=== PATIENT | female | born 1935 | race African-American/Black ===

== ENCOUNTER 2017-01-26 15:05 | Inpatient (IN) | payer MEDICARE, OTHER ==
[~2017-01-26] VITALS: Ht 165.1 cm; Wt 66.4 kg
[~2017-01-26 15:05] MED LIST: ATIVAN1 MG ORAL; CARAFATE1 G1 ORAL; CORDARONE200 M1 ORAL; COZAAR25 MG PO; DIGOX125 MCG PO; DOK100 M1 PO; FUROSEMIDE80 MG ORAL; GLUCOPHAGE500 MG PO; LASIX40 MG ORAL; METOPROLOL SUCC25 MG ORAL; METOPROLOL TART25 MG PO; NEXIUM40 MG PO; NORCO 5-325 TA1 EACH ORAL; SPIRONOLACTONE25 MG PO; SYNTHROID25 MCG PO; TOPROL XL50 MG ORAL; WARFARIN SODIUM1 MG PO; XARELTO10 MG ORAL; [UNRECOGNIZED DRUG - OTHER]
[2017-01-26 16:35] VITALS: BP 133/87
[2017-01-26] MEDS ORDERED: BACLOFEN10 MG ORAL (17:41)
[2017-01-26] MEDS ORDERED: MECLIZINE HCL25 MG PO (17:41)
[2017-01-26] MEDS ORDERED: LORAZEPAM1 MG PO (17:41)
[2017-01-26 20:00] VITALS: BP 132/79
[2017-01-26] MEDS: Sucralfate 1gm tab ORAL SCH (20:44)
[2017-01-26] MEDS: Metoprolol 50mg tab ORAL SCH (20:45)
[2017-01-26] MEDS: NovoLOG Insulin Flexpen SUBQ SCH (20:47)
[2017-01-26] MEDS ORDERED: Furosemide 40mg tab ORAL SCH (21:00)
[2017-01-26 21:21] LABS: BASOPHILS % (AUTO) 2.5 % (0.0-2.0); EOSINOPHILS % (AUTO) 0.9 % (0.0-3.0); LYMPHOCYTES % (AUTO) 17.9 % (20.0-45.0); MEAN CORPUSCULAR HEMOGLOBIN 28.4 PG (27.0-31.0); MEAN CORPUSCULAR HGB CONC 32.4 G/DL (32.0-36.0); MEAN CORPUSCULAR VOLUME 88 FL (80-99); MEAN PLATELET VOLUME 12.3 FL (6.5-10.1); MONOCYTES % (AUTO) 9.3 % (1.0-10.0); NEUTROPHILS % (AUTO) 69.3 % (45.0-75.0); PLATELET COUNT 105 K/UL (150-450); RED BLOOD COUNT 2.83 M/UL (4.20-5.40); WHITE BLOOD COUNT 9.3 K/UL (4.8-10.8)
[2017-01-26 21:32] LABS: ALANINE AMINOTRANSFERASE 8 U/L (3-33); ANION GAP 15 (5-15); ASPARTATE AMINO TRANSFERASE 15 U/L (5-40); CALCIUM 8.9 mg/dL (8.6-10.2); CARBON DIOXIDE 23 mEQ/L (20-30); CHLORIDE 100 mEQ/L (98-107); CREATININE 0.9 mg/dL (0.5-0.9); HEMOLYSIS 3; MAGNESIUM 2.1 mg/dL (1.7-2.5); POTASSIUM 4.2 mEQ/L (3.4-4.9); SODIUM 138 mEQ/L (135-145); TOTAL PROTEIN 7.6 g/dL (6.6-8.7); URIC ACID 4.7 mg/dL (3.0-7.5)
[2017-01-26 21:44] LABS: DIGOXIN 0.6 ng/mL (0.5-2.0)
[2017-01-27] VITALS: BP 155/110
[2017-01-27] MEDS: Nitroglycerin 2% oint pkt TOPIC SCH ×4 (00:05→17:28)
[2017-01-27] MEDS ORDERED: Digoxin 0.5mg/2ml Inj IVP ONE (02:00)
[2017-01-27] MEDS: Losartan 50mg tab ORAL SCH ×3 (02:11→20:39)
--- NOTE | 2017-01-27 02:25 | History and Physical Report ---
DATE OF ADMISSION: 01/26/2017 REASON FOR CONSULT: Congestive heart failure and rapid atrial fibrillation. HISTORY OF PRESENT ILLNESS: This is an 81-year-old female with a known history of chronic systolic congestive heart failure and dilated cardiomyopathy. She has a biventricular cardiac defibrillator. She has a history of both atrial and ventricular arrhythmias as well as sudden cardiac . She failed cardioversion efforts over the past year and has remained in atrial fibrillation. She also has not tolerated amiodarone in the past due to side effects and has refused to continue that drug. The patient has had worsening shortness of breath over the past several days. She was seen by me at the office and had increasing diuretic dose initiated but failed to improve prompting this hospitalization. She has not been able to ambulate more than a few feet or lie flat for the past two days due to these symptoms. PAST MEDICAL HISTORY: Cardiac defibrillator, systolic congestive heart failure, hypertensive heart disease, paroxysmal atrial fibrillation, history of ventricular tachycardia and sudden cardiac , type 2 diabetes mellitus, history of gastric carcinoma status post gastrectomy, iron deficiency anemia, osteoarthritis, and degenerative disk disease. MEDICATIONS: Prior to admission, reviewed and reconciled. ALLERGIES: Codeine. SOCIAL HISTORY: Nonsmoker. No alcohol or substance abuse. FAMILY HISTORY: Noncontributory. REVIEW OF SYSTEMS: No fevers or chills. No loss of vision or hearing. No shocks from her defibrillator. It was interrogated in the last three months. She has had cardioversion as noted most recently two to three months ago. She has not agreed to try amiodarone again. There is no history of asthma or blood clots in the legs. She has a partial gastrectomy several years ago for gastric cancer and has not had any signs of recurrence since. She does have chronic kidney disease due to her diabetic nephropathy. Her diabetes is managed with oral therapy. There is no history of thyroid disorder or dyslipidemia. She has been on cardioembolic prophylaxis with rivaroxaban. PHYSICAL EXAMINATION: GENERAL: She is in moderate respiratory distress and unable to lie flat. No chest pain noted. VITAL SIGNS: Blood pressure 133/87, pulse 97, respiratory rate 18, and afebrile. NECK: Jugular venous pressure is greater than 10. HEENT: Conjunctivae are pink. Sclerae are anicteric. LUNGS: With bilateral rales. BREASTS: Without discrete masses. ABDOMEN: Soft and nontender. CARDIAC: Irregularly irregular. Normal S1 and S2. A 1/6 systolic murmur at apex. ABDOMEN: Soft and nontender. EXTREMITIES: A 2+ bilateral pitting edema. NEUROLOGIC: Nonfocal. LABORATORY AND DIAGNOSTIC DATA: EKG atrial fibrillation with rapid ventricular response. Pro-natriuretic peptide is over 3000. White count 9.3, hemoglobin 8, and platelets 105,000. Potassium 4.2, BUN 15 and creatinine 0.9. TSH is 4.9. Digoxin level is 0.6. IMPRESSION: 1. Acute on chronic systolic congestive heart failure. 2. Cardiogenic insufficiency. 3. Paroxysmal atrial fibrillation with rapid ventricular response. 4. History of ventricular tachycardia. 5. Cardiac defibrillator. 6. History of gastric cancer. 7. Anemia and thrombocytopenia. 8. Rule out gastrointestinal blood loss. PLAN: 1. Intravenous diuresis. 2. Hold anticoagulation. 3. Check stool occult blood test. 4. May need to transfuse if hemoglobin falls further. 5. Topical nitrates. 6. Afterload reduction with losartan. 7. Replace electrolytes as needed. 8. Continue Carafate and add proton pump inhibitor. 9. Condition remains serious with guarded prognosis due to the severity of her left ventricular systolic dysfunction. Miguel Mason M.D. DR: HENRIETTA JOB#: [id number] CC:
[2017-01-27 04:00] VITALS: BP 143/86
[2017-01-27] MEDS ORDERED: NovoLOG Insulin Flexpen SUBQ SCH (06:30)
[2017-01-27] MEDS: NovoLOG Insulin Flexpen SUBQ SCH ×4 (06:37→20:42)
[2017-01-27 07:06] LABS: EOSINOPHILS % (AUTO) 0.1 % (0.0-3.0); LYMPHOCYTES % (AUTO) 12.7 % (20.0-45.0); MEAN CORPUSCULAR HGB CONC 29.4 G/DL (32.0-36.0); MEAN CORPUSCULAR VOLUME 85 FL (80-99); MEAN PLATELET VOLUME 13.6 FL (6.5-10.1); MONOCYTES % (AUTO) 7.7 % (1.0-10.0); NEUTROPHILS % (AUTO) 76.5 % (45.0-75.0); PLATELET COUNT 135 K/UL (150-450); RED BLOOD COUNT 3.26 M/UL (4.20-5.40); RED CELL DISTRIBUTION WIDTH 14.8 % (11.6-14.8)
[2017-01-27 07:44] VITALS: BP 137/82
[2017-01-27] MEDS: Spironolactone 25mg tab ORAL SCH (08:49)
[2017-01-27] MEDS: Metoprolol 50mg tab ORAL SCH ×2 (08:50→20:39)
[2017-01-27 11:23] VITALS: BP 128/80
[2017-01-27] MEDS: Sucralfate 1gm tab ORAL SCH ×2 (11:54→17:25)
[2017-01-27 15:17] VITALS: BP 123/56
[2017-01-27] MEDS ORDERED: Xarelto 15mg tab ORAL SCH (18:30)
[2017-01-27 20:00] VITALS: BP 124/85
[2017-01-28] VITALS: BP 139/72
[2017-01-28] MEDS: Nitroglycerin 2% oint pkt TOPIC SCH ×4 (00:09→18:00)
--- NOTE | 2017-01-28 02:58 | Progress Note ---
DATE: 01/27/2017 SUBJECTIVE: The patient's condition remains serious with guarded prognosis, significant shortness of breath. She is unable to lie flat. She has been diuresing well with IV furosemide. Blood pressure control has improved. She remains in atrial fibrillation with better rate control. Last evening, she was treated with IV digitalis and IV diuretics. The patient was noted to have a low hemoglobin level and a positive stool occult blood test. Rivaroxaban has been discontinued. PHYSICAL EXAMINATION: VITAL SIGNS: Blood pressure 123/56, pulse 89, respiratory rate 20, and afebrile. NECK: Supple. Jugular venous pressure greater than 10. LUNGS: With bilateral rales. CARDIAC: Irregularly irregular rhythm. Normal S1. Paradoxically split S2. A 1/6 systolic murmur at apex. ABDOMEN: Soft. EXTREMITIES: With 2+ bilateral pitting edema. LABORATORY DATA: Hemoglobin is 8.1. IMPRESSION: 1. Acute on chronic systolic congestive heart failure. 2. Cardiogenic insufficiency. 3. Anemia. 4. Hemoccult-positive stools. 5. History of gastric cancer. 6. Cardiac defibrillator. 7. Atrial fibrillation with rapid ventricular response, now rate controlled. 8. Hypertensive heart disease. PLAN: 1. Continue to hold anticoagulation. Continue diuresis. Maximize anti-failure regimens. 2. Transfuse for hemoglobin less than 8 g. Check iron panel. 3. Replace electrolytes as needed. 4. Follow up thyroid function. Continue digitalis and beta-blockade. The patient refuses amiodarone for cardioversion attempts. Miguel Mason M.D. DR: KLAUDIA JOB#: [id number] CC:
[2017-01-28 04:00] VITALS: BP 148/74
[2017-01-28] MEDS: NovoLOG Insulin Flexpen SUBQ SCH ×4 (06:34→21:44)
[2017-01-28 07:35] LABS: BASOPHILS % (AUTO) 1.1 % (0.0-2.0); EOSINOPHILS % (AUTO) 1.9 % (0.0-3.0); LYMPHOCYTES % (AUTO) 20.4 % (20.0-45.0); MEAN CORPUSCULAR HEMOGLOBIN 25.9 PG (27.0-31.0); MEAN CORPUSCULAR HGB CONC 30.6 G/DL (32.0-36.0); MEAN CORPUSCULAR VOLUME 85 FL (80-99); MEAN PLATELET VOLUME 13.7 FL (6.5-10.1); MONOCYTES % (AUTO) 11.7 % (1.0-10.0); NEUTROPHILS % (AUTO) 64.9 % (45.0-75.0); PLATELET COUNT 112 K/UL (150-450); RED BLOOD COUNT 3.08 M/UL (4.20-5.40); RED CELL DISTRIBUTION WIDTH 14.9 % (11.6-14.8); WHITE BLOOD COUNT 9.9 K/UL (4.8-10.8)
[2017-01-28 07:51] LABS: ALANINE AMINOTRANSFERASE 14 U/L (3-33); ALBUMIN/GLOBULIN RATIO 0.9 (1.0-2.7); ANION GAP 13 (5-15); ASPARTATE AMINO TRANSFERASE 21 U/L (5-40); CALCIUM 9.2 mg/dL (8.6-10.2); CARBON DIOXIDE 30 mEQ/L (20-30); CHLORIDE 99 mEQ/L (98-107); CREATININE 1.1 mg/dL (0.5-0.9); MAGNESIUM 1.9 mg/dL (1.7-2.5); POTASSIUM 3.1 mEQ/L (3.4-4.9); SODIUM 142 mEQ/L (135-145); TOTAL PROTEIN 7.3 g/dL (6.6-8.7)
[2017-01-28 07:57] LABS: HEMOLYSIS 1; IRON 23 ug/dL (37-145); TOTAL IRON BINDING CAPACITY 383 ug/dL (250-400)
[2017-01-28 08:00] VITALS: BP 133/85
[2017-01-28 08:25] LABS: BILIRUBIN,DIRECT 0.3 mg/dL (0.1-0.3)
[2017-01-28] MEDS: Spironolactone 25mg tab ORAL SCH (09:30)
[2017-01-28] MEDS: Losartan 50mg tab ORAL SCH ×2 (09:30→21:47)
[2017-01-28] MEDS: Metoprolol 50mg tab ORAL SCH ×2 (09:30→21:47)
[2017-01-28] MEDS: Sucralfate 1gm tab ORAL SCH ×2 (11:30→16:48)
[2017-01-28 16:00] VITALS: BP 105/75
[2017-01-28 20:00] VITALS: BP 124/66
[2017-01-28] MEDS ORDERED: KCl 10% 40mEq/30ml liquid ORAL ONE (23:00)
--- NOTE | 2017-01-28 23:18 | Progress Note ---
DATE: 01/28/2017 INTERNAL MEDICINE PROGRESS NOTE: SUBJECTIVE: The patient is extremely weak and less short of breath. She has diuresed quite well. The patient complains of dizziness and lightheadedness upon standing and states that her blood pressure is "too low". OBJECTIVE: VITAL SIGNS: Blood pressure is 119/62, pulse rate 85, and respiratory rate 20. NECK: Supple. LUNGS: Bilateral rales. CARDIAC: Irregularly irregular rhythm. Normal S1 and S2. ABDOMEN: Soft. EXTREMITIES: With 2+ edema. LABORATORY DATA: Potassium is 3.1. IMPRESSION: 1. Cardiogenic shock, recovering. 2. Acute on chronic systolic congestive heart failure. 3. Atrial fibrillation, now rate controlled. 4. Hypokalemia. 5. Heme positive stools 6. Hx gastric cancer 7. Iron deficiency 8. Cardiomyopathy with cardiac defibrillator PLAN: 1. Continue cautious diuresis. 2. Replace potassium. 3. Check magnesium. 4. Discontinue nitrates. 5. IV iron 6. GI eval to follow; holding anticoagulation. 7. Further recommendations will follow. Miguel Mason M.D. DR: Luis JOB#: [id number] CC: SURAJ
[2017-01-29 00:26] VITALS: BP 120/78
[2017-01-29 04:20] VITALS: BP 118/75
[2017-01-29] MEDS: NovoLOG Insulin Flexpen SUBQ SCH ×4 (06:48→23:17)
[2017-01-29] MEDS: Iron Sucrose 100 MG in NS 55 ML IVPB SCH ×2 (07:30→23:12)
[2017-01-29 07:50] VITALS: BP 112/71
[2017-01-29 08:06] LABS: MEAN CORPUSCULAR HEMOGLOBIN 24.8 PG (27.0-31.0); MEAN CORPUSCULAR HGB CONC 29.2 G/DL (32.0-36.0); MEAN CORPUSCULAR VOLUME 85 FL (80-99); MEAN PLATELET VOLUME 13.2 FL (6.5-10.1); PLATELET COUNT 134 K/UL (150-450); RED CELL DISTRIBUTION WIDTH 14.7 % (11.6-14.8); WHITE BLOOD COUNT 10.1 K/UL (4.8-10.8)
[2017-01-29] MEDS: Losartan 50mg tab ORAL SCH ×2 (08:14→23:13)
[2017-01-29 08:18] LABS: ANION GAP 12 (5-15); CARBON DIOXIDE 29 mEQ/L (20-30); CHLORIDE 99 mEQ/L (98-107); HEMOLYSIS 2; MAGNESIUM 1.7 mg/dL (1.7-2.5); POTASSIUM 3.5 mEQ/L (3.4-4.9); SODIUM 140 mEQ/L (135-145)
[2017-01-29] MEDS: Spironolactone 25mg tab ORAL SCH (08:20)
[2017-01-29] MEDS: Metoprolol 50mg tab ORAL SCH ×2 (09:00→23:15)
[2017-01-29] MEDS ORDERED: KCl 10% 40mEq/30ml liquid ORAL SCH (09:00)
--- NOTE | 2017-01-29 09:45 | Cardiology Report ---
APPROVED REPORT EXAM: Two-dimensional and M-mode echocardiogram with Doppler and color Doppler. INDICATION Atrial Fibrillation M-Mode DIMENSIONS IVSd0.7 (0.7-1.1cm)Left Atrium (MM)5.3 (1.6-4.0cm) LVDd5.0 (3.5-5.6cm)Aortic Root2.6 (2.0-3.7cm) PWd0.7 (0.7-1.1cm)Aortic Cusp Exc.1.6 (1.5-2.0cm) LVDs4.8 (2.5-4.0cm) PWs0.8 cm Normal left ventricular chamber size. Global left ventricular hypokinesis. Basal and mid anterior septal dyskinesis. Left ventricular ejection fraction estimated to be 30-35 %. No evidence of left ventricular hypertrophy. No evidence of pericardial fat or effusion. Mild left atrial and right atrial enlargement by 2D. Moderate right atrial enlargement by 2D. Focal aortic valve sclerosis with adequate cusp excursion Thickened mitral valve leaflets with normal excursion. Mitral annulus and aortic root calcification. Pulmonic valve not well visualized. Normal tricuspid valve structure. IVC dilated at 2.5cm with no physiologic collapse. RA pressure of 20mmHg. Probable pacemaker wire present in the right side chambers. A color flow and spectral Doppler study was performed and revealed: No aortic regurgitation. Moderate mitral regurgitation. Normal left ventricular diastolic function. Moderate tricuspid regurgitation. Tricuspid systolic velocities suggests peak right ventricular systolic pressure of 50 mmHg Consistent with moderate pulmonary hypertension.
[2017-01-29 10:37] LABS: ANISOCYTOSIS 1+; BAND NEUTROPHILS % (MANUAL) 0 % (0-8); BASOPHILS % (MANUAL) 0 % (0-2); EOSINOPHILS % (MANUAL) 0 % (0-3); HYPOCHROMASIA 1+; LYMPHOCYTES % (MANUAL) 26 % (20-45); NEUTROPHILS % (MANUAL) 63 % (45-75); PLATELET ESTIMATE DECREASED; TOTAL CELLS COUNTED 100
[2017-01-29 11:13] VITALS: BP 120/67
[2017-01-29] MEDS: Sucralfate 1gm tab ORAL SCH ×2 (11:55→17:21)
[2017-01-29 15:15] VITALS: BP 109/56
[2017-01-29 20:00] VITALS: BP 127/84
[2017-01-30 00:07] VITALS: BP 120/74
--- NOTE | 2017-01-30 01:17 | Progress Note ---
DATE: 01/29/2017 CARDIOLOGY PROGRESS NOTE SUBJECTIVE: The patient feels lightheaded upon standing. Blood pressure has decreased. OBJECTIVE: VITAL SIGNS: Blood pressure 109/56, heart rate 79, and respiratory rate 18. Monitor atrial fibrillation. LUNGS: Diminished breath sounds. Few rales. HEART: Regular rhythm and rate. Normal S1, S2. A 1/6 systolic apical murmur. ABDOMEN: Soft. EXTREMITIES: She has 1+ dependent edema. LABORATORY DATA: White count 10 and hemoglobin 7.9. Potassium 3.5. BUN 20 and creatinine 1. Pro-natriuretic peptide 3500. IMPRESSION: 1. Acute on chronic systolic congestive heart failure, improved. 2. Hypokalemia, corrected. 3. Orthostatic hypotension following diuresis and due to medications. 4. Magnesium level decreasing, now 1.7. 5. Anemia worsening with iron deficiency. PLAN: 1. Iron replacement. 2. Packed red blood cell transfusion. 3. The patient wants to defer gastrointestinal workup. 4. History of gastric cancer discussed. 5. Hold anticoagulation. 6. Decrease diuretic regimen. 7. Hold parameters for antihypertensives. Miguel Mason M.D. DR: HINA JOB#: [id number] CC:
[2017-01-30 04:00] VITALS: BP 129/87
[2017-01-30] MEDS: NovoLOG Insulin Flexpen SUBQ SCH ×4 (06:13→21:50)
[2017-01-30 07:51] VITALS: BP 132/80
[2017-01-30 07:58] LABS: EOSINOPHILS % (AUTO) 1.6 % (0.0-3.0); LYMPHOCYTES % (AUTO) 14.4 % (20.0-45.0); MEAN CORPUSCULAR HEMOGLOBIN 26.3 PG (27.0-31.0); MEAN CORPUSCULAR HGB CONC 31.1 G/DL (32.0-36.0); MEAN CORPUSCULAR VOLUME 84 FL (80-99); MEAN PLATELET VOLUME 11.2 FL (6.5-10.1); MONOCYTES % (AUTO) 9.4 % (1.0-10.0); NEUTROPHILS % (AUTO) 72.7 % (45.0-75.0); PLATELET COUNT 132 K/UL (150-450); RED BLOOD COUNT 3.73 M/UL (4.20-5.40); WHITE BLOOD COUNT 11.5 K/UL (4.8-10.8)
[2017-01-30 08:29] LABS: ALANINE AMINOTRANSFERASE 15 U/L (3-33); ALBUMIN/GLOBULIN RATIO 0.9 (1.0-2.7); ANION GAP 16 (5-15); ASPARTATE AMINO TRANSFERASE 20 U/L (5-40); CALCIUM 9.1 mg/dL (8.6-10.2); CARBON DIOXIDE 25 mEQ/L (20-30); CHLORIDE 98 mEQ/L (98-107); HEMOLYSIS 3; POTASSIUM 3.7 mEQ/L (3.4-4.9); SODIUM 139 mEQ/L (135-145); TOTAL PROTEIN 7.9 g/dL (6.6-8.7)
[2017-01-30 09:11] LABS: BILIRUBIN,DIRECT 0.3 mg/dL (0.1-0.3)
[2017-01-30] MEDS: Losartan 50mg tab ORAL SCH ×2 (09:25→21:52)
[2017-01-30] MEDS: Spironolactone 25mg tab ORAL SCH (09:25)
[2017-01-30] MEDS: Metoprolol 50mg tab ORAL SCH ×2 (09:25→21:52)
[2017-01-30] MEDS ORDERED: Tubing IV Secondary IV ONE (10:13)
[2017-01-30] MEDS ORDERED: NS 275ml ONE (10:13)
[2017-01-30 11:20] VITALS: BP 124/94
[2017-01-30] MEDS: Sucralfate 1gm tab ORAL SCH ×2 (12:15→17:04)
[2017-01-30 15:23] VITALS: BP 132/66
[2017-01-30 20:00] VITALS: BP 115/75
[2017-01-30] MEDS: Iron Sucrose 100 MG in NS 55 ML IVPB SCH (21:53)
[2017-01-30] MEDS ORDERED: Miralax 17gm pkt ORAL PRN (22:30)
[2017-01-31] VITALS: BP 129/67
[2017-01-31 04:32] VITALS: BP 121/80
--- NOTE | 2017-01-31 04:48 | Progress Note ---
DATE: 01/30/2017 CARDIOLOGY PROGRESS NOTE SUBJECTIVE: The patient is less dizzy upon standing. She feels less shortness of breath and her leg swelling has nearly resolved. Monitor her atrial fibrillation. The patient received a unit of packed red blood cells yesterday. OBJECTIVE: VITAL SIGNS: Blood pressure 117/75, pulse 76, respiratory rate 20, and afebrile. NECK: Supple. Jugular venous pressure is slightly elevated. LUNGS: Clear breath sounds. CARDIAC: Irregularly irregular. Normal S1 and S2. A 1/6 systolic apical murmur. ABDOMEN: Soft. EXTREMITIES: With trace edema. LABORATORY DATA: White count 11.5 and hemoglobin 9.8. Potassium 3.7, BUN 20, creatinine 1, and pro-natriuretic peptide is 3250. IMPRESSION: 1. Anemia. 2. Hemoccult-positive stools. 3. History of gastric cancer. 4. Cardiogenic shock, recovered. 5. Absph-al-xrtpxna systolic congestive heart failure. 6. Paroxysmal atrial fibrillation. 7. Cardiac defibrillator. 8. Anemia of iron deficiency. PLAN: 1. Adjust diuretic dosing. 2. Continue anti-failure regimen. 3. The patient refuses amiodarone. 4. Recheck thyroid function in four weeks. 5. Continue iron therapy. 6. Transfuse if hemoglobin less than 8 g. 7. The patient will agree to endoscopy if hemoglobin drops further, otherwise she prefers to schedule it at a later date. At this time, however, she must remain off anticoagulation and is aware of the increased risk of cardioembolic complications as such. Miguel Mason M.D. DR: MANDO JOB#: [id number] CC:
[2017-01-31] MEDS ORDERED: HydrALAZINE 10mg Tab ORAL SCH (06:00)
[2017-01-31] MEDS: NovoLOG Insulin Flexpen SUBQ SCH ×4 (06:28→21:26)
[2017-01-31 08:08] LABS: BASOPHILS % (AUTO) 1.6 % (0.0-2.0); EOSINOPHILS % (AUTO) 2.3 % (0.0-3.0); LYMPHOCYTES % (AUTO) 16.6 % (20.0-45.0); MEAN CORPUSCULAR HEMOGLOBIN 25.1 PG (27.0-31.0); MEAN CORPUSCULAR HGB CONC 29.7 G/DL (32.0-36.0); MEAN CORPUSCULAR VOLUME 85 FL (80-99); MEAN PLATELET VOLUME 12.2 FL (6.5-10.1); MONOCYTES % (AUTO) 10.2 % (1.0-10.0); NEUTROPHILS % (AUTO) 69.3 % (45.0-75.0); PLATELET COUNT 150 K/UL (150-450); RED BLOOD COUNT 3.61 M/UL (4.20-5.40); RED CELL DISTRIBUTION WIDTH 14.8 % (11.6-14.8)
[2017-01-31 08:28] VITALS: BP 124/83
[2017-01-31 08:54] LABS: ANION GAP 17 (5-15); CALCIUM 9.3 mg/dL (8.6-10.2); CARBON DIOXIDE 24 mEQ/L (20-30); CHLORIDE 98 mEQ/L (98-107); CREATININE 1.1 mg/dL (0.5-0.9); HEMOLYSIS 3; POTASSIUM 3.9 mEQ/L (3.4-4.9); SODIUM 139 mEQ/L (135-145)
[2017-01-31] MEDS ORDERED: Allopurinol 100mg Tab ORAL SCH (09:00)
[2017-01-31] MEDS ORDERED: Docusate 250mg cap ORAL SCH (09:00)
[2017-01-31] MEDS ORDERED: PARoxetine 20mg tab ORAL SCH (09:00)
[2017-01-31] MEDS ORDERED: Renagel 400mg cap ORAL SCH (09:00)
[2017-01-31] MEDS ORDERED: Aspirin Baby 81mg ORAL SCH (09:00)
[2017-01-31] MEDS ORDERED: Lactulose 20gm/30ml UDC ORAL SCH (09:00)
[2017-01-31] MEDS: Spironolactone 25mg tab ORAL SCH (10:23)
[2017-01-31] MEDS: Metoprolol 50mg tab ORAL SCH ×2 (10:24→21:25)
[2017-01-31] MEDS: Losartan 50mg tab ORAL SCH ×2 (10:24→21:24)
[2017-01-31 11:21] VITALS: BP 125/93
[2017-01-31] MEDS: Sucralfate 1gm tab ORAL SCH ×2 (11:39→16:53)
[2017-01-31 11:46] LABS: OTHERS PATHOLOGIST COMMENT
[2017-01-31 16:01] VITALS: BP 114/69
--- NOTE | 2017-01-31 19:57 | General Progress Note ---
Assessment/Plan Problem List: (1) Anemia ICD Codes: D64.9 - Anemia, unspecified SNOMED: 252804096 (2) GI bleed ICD Codes: K92.2 - Gastrointestinal hemorrhage, unspecified SNOMED: 02011912 (3) Gastric cancer ICD Codes: C16.9 - Malignant neoplasm of stomach, unspecified SNOMED: 416684879 (4) Elevated troponin (5) Dyspepsia ICD Codes: K30 - Dyspepsia SNOMED: 259699372 (6) Chest pain ICD Codes: R07.9 - Chest pain, unspecified SNOMED: 46858858 (7) CHF exacerbation ICD Codes: I50.9 - CHF exacerbation SNOMED: 58554433 (8) ICD (implantable cardiac defibrillator) discharge ICD Codes: Z03.89 - ICD (implantable cardiac defibrillator) discharge SNOMED: 047835670 (9) Paroxysmal a-fib ICD Codes: I48.0 - Paroxysmal a-fib SNOMED: 536871157 (10) CHF exacerbation ICD Codes: I50.9 - Heart failure, unspecified SNOMED: 57579047 Status: stable, progressing Assessment/Plan monitor h/h off xarelto possible gi eval diuresis monitor labs 'tele Subjective ROS Limited/Unobtainable: No Constitutional: Reports: weakness HEENT: Reports: no symptoms Cardiovascular: Reports: no symptoms Respiratory: Reports: cough Gastrointestinal/Abdominal: Reports: abdominal pain Genitourinary: Reports: no symptoms Neurologic/Psychiatric: Reports: no symptoms Endocrine: Reports: no symptoms Hematologic/Lymphatic: Reports: anemia Allergies: Coded Allergies: CODEINE (Verified Allergy, Unknown, 09/25/10) All Systems: reviewed and negative except above Subjective mild abd pain. denies chest pain or sob. no fever or chills. no headaches. no palpitations Objective Last 24 Hour Vital Signs Date Time Temp Pulse Resp B/P Pulse Ox O2 Delivery O2 Flow Rate FiO2 01/31/17 16:01 97.3 72 20 114/69 98 Room Air 01/31/17 16:00 86 01/31/17 12:00 47 01/31/17 11:21 97.2 85 20 125/93 100 Nasal Cannula 2.0 01/31/17 10:24 124/83 01/31/17 10:24 88 124/83 01/31/17 08:28 97.2 88 18 124/83 96 Room Air 01/31/17 08:00 81 01/31/17 04:32 97.9 84 20 121/80 84 Room Air 01/31/17 04:00 80 01/31/17 00:00 76 01/31/17 00:00 97.7 70 20 129/67 96 Room Air 01/30/17 21:52 117/75 01/30/17 21:52 76 117/75 01/30/17 20:00 81 01/30/17 20:00 97.7 75 20 115/75 97 Room Air Intake and Output 01/30/17 01/31/17 19:00 07:00 Intake Total 540 ml Balance 540 ml Intake Oral 540 ml # Voids 3 2 # Bowel Movements 1 Laboratory Tests 01/31/17 06:55: White Blood Count 10.0, Red Blood Count 3.61L, Hemoglobin 9.1L, Hematocrit 30.5L , Mean Corpuscular Volume 85, Mean Corpuscular Hemoglobin 25.1L, Mean Corpuscular Hemoglobin Concent 29.7L, Red Cell Distribution Width 14.8, Platelet Count 150, Mean Platelet Volume 12.2H, Neutrophils (%) (Auto) 69.3, Lymphocytes (%) (Auto) 16.6L, Monocytes (%) (Auto) 10.2H, Eosinophils (%) (Auto ) 2.3, Basophils (%) (Auto) 1.6, Sodium Level 139, Potassium Level 3.9, Chloride Level 98, Carbon Dioxide Level 24, Anion Gap 17H, Blood Urea Nitrogen 25H, Creatinine 1.1H, Estimat Glomerular Filtration Rate , Glucose Level 139H, Calcium Level 9.3, Free Thyroxine 1.36 Height (Feet): 5 Height (Inches): 5.00 Weight (Pounds): 157 General Appearance: WD/WN, alert Neck: supple Cardiovascular: regular rhythm Respiratory/Chest: lungs clear Abdomen: normal bowel sounds, non tender, soft, no organomegaly Edema: no edema noted Arm (L), no edema noted Arm (R), no edema noted Leg (L), no edema noted Leg (R), no edema noted Pedal (L), no edema noted Pedal (R), no edema noted 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
[2017-01-31 20:00] VITALS: BP 134/78
[2017-01-31] MEDS ORDERED: clonazePAM 0.5mg tab ORAL SCH (21:00)
[2017-01-31] MEDS: Iron Sucrose 100 MG in NS 55 ML IVPB SCH (21:00)
[2017-01-31] MEDS ORDERED: TraZODone 100mg tab ORAL SCH (21:00)
[2017-01-31] MEDS: Furosemide 40mg tab ORAL SCH (21:24)
[2017-02-01] VITALS: BP 128/94
[2017-02-01 04:00] VITALS: BP 134/84
[2017-02-01] MEDS: NovoLOG Insulin Flexpen SUBQ SCH ×4 (06:38→21:18)
[2017-02-01 07:54] VITALS: BP 141/85
[2017-02-01] MEDS: Furosemide 40mg tab ORAL SCH ×2 (07:58→21:00)
[2017-02-01] MEDS: Spironolactone 25mg tab ORAL SCH (07:58)
[2017-02-01] MEDS: Metoprolol 50mg tab ORAL SCH ×2 (07:58→21:10)
[2017-02-01] MEDS: Losartan 50mg tab ORAL SCH ×2 (07:59→21:10)
--- NOTE | 2017-02-01 08:31 | General Progress Note ---
Assessment/Plan Problem List: (1) Anemia ICD Codes: D64.9 - Anemia, unspecified SNOMED: 894644766 (2) GI bleed ICD Codes: K92.2 - Gastrointestinal hemorrhage, unspecified SNOMED: 63489883 (3) Gastric cancer ICD Codes: C16.9 - Malignant neoplasm of stomach, unspecified SNOMED: 491279894 (4) Elevated troponin (5) Dyspepsia ICD Codes: K30 - Dyspepsia SNOMED: 661490361 (6) Chest pain ICD Codes: R07.9 - Chest pain, unspecified SNOMED: 55819574 (7) CHF exacerbation ICD Codes: I50.9 - CHF exacerbation SNOMED: 38557741 (8) ICD (implantable cardiac defibrillator) discharge ICD Codes: Z03.89 - ICD (implantable cardiac defibrillator) discharge SNOMED: 622764414 (9) Paroxysmal a-fib ICD Codes: I48.0 - Paroxysmal a-fib SNOMED: 826014448 (10) CHF exacerbation ICD Codes: I50.9 - Heart failure, unspecified SNOMED: 72271159 Status: stable Assessment/Plan monitor h/h monitor stool ob off xarelto possible gi eval diuresis monitor labs 'tele Subjective ROS Limited/Unobtainable: No Constitutional: Reports: malaise, weakness HEENT: Reports: no symptoms Cardiovascular: Reports: chest pain, palpitations Respiratory: Reports: no symptoms Gastrointestinal/Abdominal: Reports: no symptoms Genitourinary: Reports: no symptoms Neurologic/Psychiatric: Reports: no symptoms Endocrine: Reports: no symptoms Hematologic/Lymphatic: Reports: no symptoms Allergies: Coded Allergies: CODEINE (Verified Allergy, Unknown, 09/25/10) All Systems: reviewed and negative except above Subjective mild abd pain/lower chest pain or sob. no fever or chills. no headaches. no palpitations Objective Last 24 Hour Vital Signs Date Time Temp Pulse Resp B/P Pulse Ox O2 Delivery O2 Flow Rate FiO2 02/01/17 07:59 141/85 02/01/17 07:58 79 141/85 02/01/17 07:54 97.7 79 18 141/85 100 Room Air 02/01/17 04:00 97.9 80 20 134/84 97 Room Air 02/01/17 04:00 88 02/01/17 00:00 74 02/01/17 00:00 97.7 80 19 128/94 98 Room Air 01/31/17 21:25 81 134/78 01/31/17 21:24 134/78 01/31/17 20:00 97.2 81 20 134/78 97 Room Air 01/31/17 20:00 84 01/31/17 16:01 97.3 72 20 114/69 98 Room Air 01/31/17 16:00 86 01/31/17 12:00 47 01/31/17 11:21 97.2 85 20 125/93 100 Nasal Cannula 2.0 01/31/17 10:24 124/83 01/31/17 10:24 88 124/83 Intake and Output 01/31/17 02/01/17 19:00 07:00 Intake Total 360 ml 200 ml Balance 360 ml 200 ml Intake Oral 360 ml 200 ml # Voids 3 1 Laboratory Tests 02/01/17 07:13: White Blood Count [Pending], Red Blood Count [Pending], Hemoglobin [Pending], Hematocrit [Pending], Mean Corpuscular Volume [Pending], Mean Corpuscular Hemoglobin [Pending], Mean Corpuscular Hemoglobin Concent [Pending], Red Cell Distribution Width [Pending], Platelet Count [Pending], Mean Platelet Volume [ Pending], Neutrophils (%) (Auto) [Pending], Lymphocytes (%) (Auto) [Pending], Monocytes (%) (Auto) [Pending], Eosinophils (%) (Auto) [Pending], Basophils (%) (Auto) [Pending], Sodium Level [Pending], Potassium Level [Pending], Chloride Level [Pending], Carbon Dioxide Level [Pending], Blood Urea Nitrogen [Pending], Creatinine [Pending], Estimat Glomerular Filtration Rate [Pending], Glucose Level [Pending], Calcium Level [Pending] Height (Feet): 5 Height (Inches): 5.00 Weight (Pounds): 158 General Appearance: WD/WN, alert Neck: supple Cardiovascular: regular rhythm Respiratory/Chest: normal breath sounds Abdomen: normal bowel sounds, soft, no organomegaly, tender Edema: no edema noted Arm (L), no edema noted Arm (R), no edema noted Leg (L), no edema noted Leg (R), no edema noted Pedal (L), no edema noted Pedal (R), no edema noted 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
[2017-02-01 08:42] LABS: BASOPHILS % (AUTO) 1.3 % (0.0-2.0); LYMPHOCYTES % (AUTO) 18.6 % (20.0-45.0); MEAN CORPUSCULAR HEMOGLOBIN 25.5 PG (27.0-31.0); MEAN CORPUSCULAR HGB CONC 30.4 G/DL (32.0-36.0); MEAN CORPUSCULAR VOLUME 84 FL (80-99); MEAN PLATELET VOLUME 12.6 FL (6.5-10.1); MONOCYTES % (AUTO) 10.2 % (1.0-10.0); PLATELET COUNT 128 K/UL (150-450); RED BLOOD COUNT 3.46 M/UL (4.20-5.40); RED CELL DISTRIBUTION WIDTH 14.9 % (11.6-14.8)
[2017-02-01 08:59] LABS: ANION GAP 17 (5-15); CARBON DIOXIDE 23 mEQ/L (20-30); CHLORIDE 100 mEQ/L (98-107); CREATININE 1.2 mg/dL (0.5-0.9); HEMOLYSIS 0; POTASSIUM 3.8 mEQ/L (3.4-4.9); SODIUM 140 mEQ/L (135-145)
[2017-02-01] MEDS: Sucralfate 1gm tab ORAL SCH ×2 (10:28→17:21)
[2017-02-01 11:21] VITALS: BP 147/87
[2017-02-01 15:23] VITALS: BP 134/65
[2017-02-01 20:00] VITALS: BP 145/90
[2017-02-01] MEDS: Iron Sucrose 100 MG in NS 55 ML IVPB SCH (21:00)
[2017-02-02 00:08] VITALS: BP 136/85
[2017-02-02] MEDS ORDERED: LORazepam 0.5mg tab ORAL ONE (00:45)
[2017-02-02] MEDS ORDERED: Levofloxacin 500mg tab ORAL ONE (00:45)
[2017-02-02 04:04] VITALS: BP 130/79
--- NOTE | 2017-02-02 05:08 | Progress Note ---
DATE: 02/01/2017 CARDIOLOGY PROGRESS NOTE: SUBJECTIVE: The patient still has dysuria. She is also weak, but no chest pain or shortness of breath. OBJECTIVE: VITAL SIGNS: Blood pressure 145/90, pulse 80, and respiratory rate 16. NECK: Jugular venous pressure elevated. LUNGS: Clear breath sounds. CARDIAC: Irregularly irregular. Normal S1, S2. A 1/6 systolic apical murmur. ABDOMEN: Soft. EXTREMITIES: Trace edema. LABORATORY AND DIAGNOSTIC DATA: Urine culture is positive for Proteus and E. coli. Hemoglobin is up to 8.7. IMPRESSION: 1. Gastrointestinal bleed. 2. History of gastric cancer. 3. Acute on chronic systolic congestive heart failure. 4. Recovered cardiogenic shock . 5. Anemia of iron deficiency. 6. Poor peripheral access . 7. Polymicrobial urinary tract infection. 8. Hypertensive cardiomyopathy. 9. Cardiac defibrillator with history of sudden cardiac . PLAN: We will continue to monitor hemoglobin and transfuse if less than 8 g. Transition from IV to oral anti failure drugs. Iron replacement. Following a GI workup which will be called once antibiotics have been started for her urinary infection. Miguel Mason M.D. DR: Jennyfer JOB#: [id number] CC:
[2017-02-02 05:43] LABS: BASOPHILS % (AUTO) 1.4 % (0.0-2.0); EOSINOPHILS % (AUTO) 1.6 % (0.0-3.0); LYMPHOCYTES % (AUTO) 18.2 % (20.0-45.0); MEAN CORPUSCULAR HEMOGLOBIN 26.1 PG (27.0-31.0); MEAN CORPUSCULAR HGB CONC 31.2 G/DL (32.0-36.0); MEAN CORPUSCULAR VOLUME 84 FL (80-99); MONOCYTES % (AUTO) 10.6 % (1.0-10.0); NEUTROPHILS % (AUTO) 68.2 % (45.0-75.0); PLATELET COUNT 132 K/UL (150-450); RED BLOOD COUNT 3.55 M/UL (4.20-5.40); RED CELL DISTRIBUTION WIDTH 15.2 % (11.6-14.8); WHITE BLOOD COUNT 9.1 K/UL (4.8-10.8)
--- NOTE | 2017-02-02 06:29 | Progress Note ---
DATE: 01/31/2017 CARDIOLOGY PROGRESS NOTE Late entry for 01/31/2017 SUBJECTIVE: The patient has weakness. She noted she had a Alarcon catheter removed. She has some dysuria. OBJECTIVE: VITAL SIGNS: Afebrile, blood pressure 134/78, pulse 81, and respiratory rate 20. NECK: Supple. LUNGS: No wheezing or rales. CARDIAC: Regular rhythm rate. Normal S1, S2. A 1/6 systolic apical murmur. ABDOMEN: Soft. EXTREMITIES: Trace edema. LABORATORY DATA: Hemoglobin has decreased to 9.1. Chemistry panel notable for BUN 25, creatinine 1.1, potassium 3.9, and free TSH 1.3. Chest x-ray is normal. IMPRESSION: Vquum-[id number]-[id number] systolic congestive heart failure improved, chronic kidney disease, type 2 diabetes mellitus, history of gastric cancer, hemoccult-positive stool with anemia status post transfusion, and possible urinary tract infection. PLAN: 1. Rivaroxaban for cardioembolic prophylaxis is now on hold due to hemoccult positive stools. 2. Titrate beta-gem. 3. Continue diuresis. 4. Monitor hemoglobin. 5. We will likely need GI consult. Continue to hold anticoagulation transition from IV to oral diuretics. Titrate anti-failure regimen. Follow up urine studies. Miguel Mason M.D. DR: Juan A JOB#: [id number] CC:
[2017-02-02 06:38] LABS: ALANINE AMINOTRANSFERASE 17 U/L (3-33); ALBUMIN/GLOBULIN RATIO 0.9 (1.0-2.7); ANION GAP 19 (5-15); ASPARTATE AMINO TRANSFERASE 23 U/L (5-40); CALCIUM 8.9 mg/dL (8.6-10.2); CARBON DIOXIDE 24 mEQ/L (20-30); CHLORIDE 97 mEQ/L (98-107); CREATININE 1.4 mg/dL (0.5-0.9); HEMOLYSIS 0; POTASSIUM 3.5 mEQ/L (3.4-4.9); SODIUM 140 mEQ/L (135-145); TOTAL PROTEIN 7.5 g/dL (6.6-8.7)
[2017-02-02 06:51] LABS: BILIRUBIN,DIRECT 0.3 mg/dL (0.1-0.3)
[2017-02-02] MEDS: NovoLOG Insulin Flexpen SUBQ SCH ×4 (06:54→20:54)
[2017-02-02 08:00] VITALS: BP 126/81
[2017-02-02] MEDS: Furosemide 40mg tab ORAL SCH ×2 (08:54→20:49)
[2017-02-02] MEDS: Spironolactone 25mg tab ORAL SCH (08:54)
[2017-02-02] MEDS: Losartan 50mg tab ORAL SCH ×2 (08:54→20:51)
[2017-02-02] MEDS: Metoprolol 50mg tab ORAL SCH ×2 (08:54→20:49)
[2017-02-02] MEDS: Sucralfate 1gm tab ORAL SCH ×2 (11:58→16:28)
[2017-02-02 12:00] VITALS: BP 121/81
--- NOTE | 2017-02-02 12:48 | General Progress Note ---
Assessment/Plan Problem List: (1) Anemia ICD Codes: D64.9 - Anemia, unspecified SNOMED: 383371103 (2) GI bleed ICD Codes: K92.2 - Gastrointestinal hemorrhage, unspecified SNOMED: 13672990 (3) Gastric cancer ICD Codes: C16.9 - Malignant neoplasm of stomach, unspecified SNOMED: 412020307 (4) Elevated troponin (5) Dyspepsia ICD Codes: K30 - Dyspepsia SNOMED: 608094951 (6) Chest pain ICD Codes: R07.9 - Chest pain, unspecified SNOMED: 52253831 (7) CHF exacerbation ICD Codes: I50.9 - CHF exacerbation SNOMED: 59106493 (8) ICD (implantable cardiac defibrillator) discharge ICD Codes: Z03.89 - ICD (implantable cardiac defibrillator) discharge SNOMED: 800187463 (9) Paroxysmal a-fib ICD Codes: I48.0 - Paroxysmal a-fib SNOMED: 666673396 (10) CHF exacerbation ICD Codes: I50.9 - Heart failure, unspecified SNOMED: 05056359 Status: stable, progressing Assessment/Plan monitor h/h monitor stool ob off xarelto possible gi eval diuresis monitor labs dc planning if cleared by pt and cards 'tele Subjective ROS Limited/Unobtainable: No Constitutional: Reports: weakness HEENT: Reports: no symptoms Cardiovascular: Reports: chest pain Respiratory: Reports: shortness of breath Gastrointestinal/Abdominal: Reports: no symptoms Genitourinary: Reports: no symptoms Neurologic/Psychiatric: Reports: no symptoms Endocrine: Reports: no symptoms Hematologic/Lymphatic: Reports: anemia Allergies: Coded Allergies: CODEINE (Verified Allergy, Unknown, 09/25/10) All Systems: reviewed and negative except above Subjective mild abd pain/lower chest pain no sob. no fever or chills. no headaches. no palpitations feels "weak" when ambulating. mild sims. npa higher today. run/cr trending up Objective Last 24 Hour Vital Signs Date Time Temp Pulse Resp B/P Pulse Ox O2 Delivery O2 Flow Rate FiO2 02/02/17 08:54 126/81 02/02/17 08:54 76 126/81 02/02/17 08:00 76 02/02/17 08:00 97.5 76 18 126/81 96 Room Air 02/02/17 04:04 98.8 83 19 130/79 98 Room Air 02/02/17 04:00 78 02/02/17 00:08 98.3 64 18 136/85 98 Nasal Cannula 2.0 02/02/17 00:00 68 02/01/17 21:10 145/90 02/01/17 21:10 85 145/90 02/01/17 20:00 74 02/01/17 20:00 98.5 85 19 145/90 98 Room Air 02/01/17 16:00 72 02/01/17 15:23 97.7 80 18 134/65 100 Room Air Intake and Output 02/01/17 02/02/17 19:00 07:00 Intake Total 470 ml Balance 470 ml Intake Oral 470 ml # Voids 4 2 Laboratory Tests 02/02/17 04:15: White Blood Count 9.1, Red Blood Count 3.55L, Hemoglobin 9.3L, Hematocrit 29.6L , Mean Corpuscular Volume 84, Mean Corpuscular Hemoglobin 26.1L, Mean Corpuscular Hemoglobin Concent 31.2L, Red Cell Distribution Width 15.2H, Platelet Count 132L, Mean Platelet Volume 12.0H, Neutrophils (%) (Auto) 68.2, Lymphocytes (%) (Auto) 18.2L, Monocytes (%) (Auto) 10.6H, Eosinophils (%) (Auto ) 1.6, Basophils (%) (Auto) 1.4, Sodium Level 140, Potassium Level 3.5, Chloride Level 97L, Carbon Dioxide Level 24, Anion Gap 19H, Blood Urea Nitrogen 31H, Creatinine 1.4H, Estimat Glomerular Filtration Rate , Glucose Level 112H, Calcium Level 8.9, Total Bilirubin 1.5H, Direct Bilirubin 0.3, Aspartate Amino Transf (AST/SGOT) 23, Alanine Aminotransferase (ALT/SGPT) 17, Alkaline Phosphatase 76, Pro-B-Type Natriuretic Peptide 5745H, Total Protein 7.5, Albumin 3.7, Globulin 3.8, Albumin/Globulin Ratio 0.9L Height (Feet): 5 Height (Inches): 5.00 Weight (Pounds): 158 General Appearance: WD/WN, alert Neck: supple Cardiovascular: regular rhythm Respiratory/Chest: lungs clear Abdomen: normal bowel sounds, non tender, soft, no organomegaly Neurologic: alert, oriented x 3, responsive Skin: normal pigmentation UOMOTO,DANIELLE Feb 02, 2017 12:48
[2017-02-02 16:00] VITALS: BP 130/73
[2017-02-02 20:30] VITALS: BP 133/86
[2017-02-03] VITALS: BP 134/68
[2017-02-03 03:34] VITALS: BP 148/83
[2017-02-03] MEDS: NovoLOG Insulin Flexpen SUBQ SCH ×4 (06:32→21:42)
[2017-02-03 08:15] VITALS: BP 136/91
[2017-02-03] MEDS: Spironolactone 25mg tab ORAL SCH (08:18)
[2017-02-03] MEDS: Losartan 50mg tab ORAL SCH ×2 (08:18→21:28)
[2017-02-03] MEDS: Metoprolol 50mg tab ORAL SCH ×2 (08:19→21:30)
[2017-02-03] MEDS: Furosemide 40mg tab ORAL SCH ×2 (08:19→21:29)
--- NOTE | 2017-02-03 08:48 | General Progress Note ---
Assessment/Plan Problem List: (1) Anemia ICD Codes: D64.9 - Anemia, unspecified SNOMED: 165734158 (2) GI bleed ICD Codes: K92.2 - Gastrointestinal hemorrhage, unspecified SNOMED: 68815741 (3) Gastric cancer ICD Codes: C16.9 - Malignant neoplasm of stomach, unspecified SNOMED: 063220329 (4) Elevated troponin (5) Dyspepsia ICD Codes: K30 - Dyspepsia SNOMED: 330488329 (6) Chest pain ICD Codes: R07.9 - Chest pain, unspecified SNOMED: 50392954 (7) CHF exacerbation ICD Codes: I50.9 - CHF exacerbation SNOMED: 35196045 (8) ICD (implantable cardiac defibrillator) discharge ICD Codes: Z03.89 - ICD (implantable cardiac defibrillator) discharge SNOMED: 386324182 (9) Paroxysmal a-fib ICD Codes: I48.0 - Paroxysmal a-fib SNOMED: 820397994 (10) CHF exacerbation ICD Codes: I50.9 - Heart failure, unspecified SNOMED: 37975005 Status: stable Assessment/Plan dc planning outpt egd per pt hold xarelto due to heme positive stools Subjective ROS Limited/Unobtainable: No Constitutional: Reports: malaise, weakness HEENT: Reports: no symptoms Cardiovascular: Reports: no symptoms Respiratory: Reports: no symptoms Gastrointestinal/Abdominal: Reports: no symptoms Genitourinary: Reports: no symptoms Neurologic/Psychiatric: Reports: no symptoms Endocrine: Reports: no symptoms Hematologic/Lymphatic: Reports: no symptoms Allergies: Coded Allergies: CODEINE (Verified Allergy, Unknown, 09/25/10) All Systems: reviewed and negative except above Subjective c/o dizziness. refusing endoscopy. aware of conern regarding heme positive stool and prior history of gastric ca. still feels weak Objective Last 24 Hour Vital Signs Date Time Temp Pulse Resp B/P Pulse Ox O2 Delivery O2 Flow Rate FiO2 02/03/17 08:19 86 136/91 02/03/17 08:18 136/91 02/03/17 08:15 97.2 70 20 136/91 100 Nasal Cannula 2.0 02/03/17 04:00 82 02/03/17 03:34 97.9 83 18 148/83 100 Room Air 02/03/17 00:00 97.7 79 18 134/68 97 Room Air 02/03/17 00:00 81 02/02/17 20:51 146/77 02/02/17 20:49 75 146/77 02/02/17 20:30 98.5 77 19 133/86 94 Room Air 02/02/17 20:00 80 02/02/17 16:00 79 02/02/17 16:00 97.0 77 18 130/73 100 Room Air 02/02/17 12:00 97.0 83 19 121/81 100 Room Air 02/02/17 12:00 80 02/02/17 08:54 126/81 02/02/17 08:54 76 126/81 Intake and Output 02/02/17 02/03/17 19:00 07:00 Intake Total 240 ml 250 ml Balance 240 ml 250 ml Intake Oral 240 ml 250 ml # Voids 1 3 # Bowel Movements 1 Height (Feet): 5 Height (Inches): 5.00 Weight (Pounds): 152 Objective General Appearance: WD/WN, alert Neck: supple Cardiovascular: regular rhythm Respiratory/Chest: lungs clear Abdomen: normal bowel sounds, non tender, soft, no organomegaly Neurologic: alert, oriented x 3, responsive Skin: normal pigmentation DANIELLE SIMONS Feb 03, 2017 08:48
[2017-02-03 11:45] VITALS: BP 122/67
[2017-02-03] MEDS: Sucralfate 1gm tab ORAL SCH ×2 (11:49→16:28)
--- NOTE | 2017-02-03 12:56 | Diagnostic Imaging Report ---
Abdominal pain Technique: Continuous helical CT imaging of the abdomen and pelvis was performed with automatic exposure control following administration of oral contrast only, on a Siemens sensation [address] scanner. Axial images were reconstructed at 5 mm slice thickness and interval. Coronal images were reconstructed at 5 mm slice thickness. No IV contrast was administered per requesting physicians order, despite no contraindications listed in either submitted clinical data or tech note.. CTDI volume(s): 13 mGy Total DLP: 646 mGy-cm Findings: Comparison: Contrast-enhanced CT abdomen pelvis 06/11/2014 Lack of IV contrast limits evaluation. Oral contrast has passed throughout the gastrointestinal tract to the level of distal transverse colon. Entire tract remains nondilated. Surgical clips noted adjacent to stomach and left-sided small bowel. Mild mural thickening in region of small bowel anastomosis not excludable. Haziness surrounds rectum. No other obvious mural thickening, adjacent stranding, extraluminal gas or fluid collections. Prominent arterial mural calcifications. Vascular patency indeterminate. Metallic densities adjacent to small bowel in left lower quadrant in region of previous anastomosis. Absence of uterus, nonvisualization of ovaries again noted. Remainder visualized pelvic anatomy demonstrates no other obvious acute abnormality. Pleural-based subsegmental consolidation and volume loss have developed in the left lung base. A small. Heart size is increased, again contains pacemaker leads. Degenerative changes again noted in lumbar, lower thoracic spine. IMPRESSION: Perirectal haziness--consider proctitis Pathologic mural thickening of small bowel in region of previous anastomosis not excludable No other evidence of acute abdominopelvic disease, with limitation as described. Subtle but potentially significant abnormalities may be missed. Repeat CT scan with full oral and IV contrast preparation recommended for more complete evaluation, as clinically indicated Development of left lung base subsegmental atelectasis and adjacent pleural effusion Interval increase in heart size suggests progression of cardiomyopathy Other stable chronic changes as described
[2017-02-03 15:57] VITALS: BP 145/76
--- NOTE | 2017-02-03 19:19 | General Progress Note ---
Assessment/Plan Assessment/Plan GI CONSULT Full note to follow Will schedule for EGD/Colon Th Thank you Mauro Stephenson MD Subjective Allergies: Coded Allergies: CODEINE (Verified Allergy, Unknown, 09/25/10) Objective Last 24 Hour Vital Signs Date Time Temp Pulse Resp B/P Pulse Ox O2 Delivery O2 Flow Rate FiO2 02/03/17 15:57 97.0 71 18 145/76 99 Nasal Cannula 2.0 02/03/17 11:45 97.0 72 18 122/67 100 Nasal Cannula 2.0 02/03/17 08:19 86 136/91 02/03/17 08:18 136/91 02/03/17 08:15 97.2 70 20 136/91 100 Nasal Cannula 2.0 02/03/17 07:34 70 02/03/17 04:00 82 02/03/17 03:34 97.9 83 18 148/83 100 Room Air 02/03/17 00:00 97.7 79 18 134/68 97 Room Air 02/03/17 00:00 81 02/02/17 20:51 146/77 02/02/17 20:49 75 146/77 02/02/17 20:30 98.5 77 19 133/86 94 Room Air 02/02/17 20:00 80 Intake and Output 02/02/17 02/03/17 19:00 07:00 Intake Total 240 ml 250 ml Balance 240 ml 250 ml Intake Oral 240 ml 250 ml # Voids 1 3 # Bowel Movements 1 Height (Feet): 5 Height (Inches): 5.00 Weight (Pounds): 152 MAURO STEPHENSON Feb 03, 2017 19:19
[2017-02-03] MEDS ORDERED: Sorbitol Solution UD 30ml ORAL ONE (20:00)
[2017-02-03 20:20] VITALS: BP 124/73
--- NOTE | 2017-02-03 23:58 | Progress Note ---
DATE: 02/03/2017 SUBJECTIVE: The patient is concerned about her bleeding. She is now agreeable to proceed with a diagnostic workup. A CAT scan of the abdomen was obtained and notable for possible proctitis and possible thickening at the small bowel anastomosis site from previous surgery. She is not short of breath. PHYSICAL EXAMINATION: VITAL SIGNS: Blood pressure 124/73, pulse 78, respiratory rate 17 and room air oxygen 98%. NECK: Supple. LUNGS: Clear. CARDIAC: Irregularly irregular. Normal S1 and S2. ABDOMEN: Soft. Mild midepigastric pain. EXTREMITIES: No edema. IMPRESSION: 1. Congestive heart failure, systolic, acute on chronic now compensated. 2. Hypertensive cardiomyopathy. 3. Cardiac defibrillator. 4. History of gastric cancer with gastrectomy. 5. Hemoccult-positive stool. 6. Iron deficiency anemia. 7. Paroxysmal atrial fibrillation. PLAN: 1. Continue the same cardiovascular regimen. 2. Recheck laboratory studies. 3. Titrate diuretic dosing. 4. Followup hemoglobin level. 5. Continue iron replacement. 6. Await GI followup. 7. The patient now agreeable to endoscopy. Miguel Mason M.D. DR: BRENDAN JOB#: [id number] CC:
[2017-02-04 00:01] VITALS: BP 112/74
--- NOTE | 2017-02-04 00:08 | Progress Note ---
DATE: 02/02/2017 CARDIOLOGY PROGRESS NOTE SUBJECTIVE: The patient has some midepigastric discomfort. No nausea or vomiting. She noted some blood in the stool. Monitor atrial fibrillation. OBJECTIVE: VITAL SIGNS: Blood pressure 126/81, pulse 76, and respirations 18. NECK: Supple. LUNGS: Clear. CARDIAC: Irregularly irregular. ABDOMEN: Soft. Mild tenderness in the midepigastric region. EXTREMITIES: With trace edema. LABORATORY DATA: White count 9.1 and hemoglobin 9.3. Potassium is 3.5. Pro-natriuretic peptide is 5745. BUN 31 and creatinine 1.4. IMPRESSION: 1. Gastrointestinal bleeding. 2. Anemia. 3. History of gastric cancer. 4. Acute on chronic systolic congestive heart failure, now compensated. 5. Hypertensive heart disease. PLAN: 1. Awaiting gastrointestinal evaluation likely will need an endoscopy prior to resumption of rivaroxaban for cardioembolic prophylaxis. In the interim, we will continue titration of anti-failure regimen. 2. Vitamin replacement and monitoring of blood counts with transfusions, based on clinical findings. Miguel Mason M.D. DR: HENRIETTA JOB#: [id number] CC:
[2017-02-04 03:55] VITALS: BP 128/75
[2017-02-04] MEDS: NovoLOG Insulin Flexpen SUBQ SCH ×4 (06:20→21:00)
[2017-02-04] MEDS ORDERED: Bisacodyl EC 5mg tab ORAL ONE (06:30)
[2017-02-04] MEDS ORDERED: Nulytely 4L ORAL ONE ×2 (07:00→09:00)
[2017-02-04 07:43] VITALS: BP 120/75
[2017-02-04 07:47] LABS: BASOPHILS % (AUTO) 1.4 % (0.0-2.0); EOSINOPHILS % (AUTO) 1.6 % (0.0-3.0); LYMPHOCYTES % (AUTO) 19.7 % (20.0-45.0); MEAN CORPUSCULAR HEMOGLOBIN 25.9 PG (27.0-31.0); MEAN CORPUSCULAR HGB CONC 30.3 G/DL (32.0-36.0); MEAN CORPUSCULAR VOLUME 85 FL (80-99); MEAN PLATELET VOLUME 12.8 FL (6.5-10.1); MONOCYTES % (AUTO) 13.8 % (1.0-10.0); NEUTROPHILS % (AUTO) 63.5 % (45.0-75.0); PLATELET COUNT 130 K/UL (150-450); RED BLOOD COUNT 3.69 M/UL (4.20-5.40); RED CELL DISTRIBUTION WIDTH 17.3 % (11.6-14.8); WHITE BLOOD COUNT 8.6 K/UL (4.8-10.8)
[2017-02-04 08:13] LABS: ALANINE AMINOTRANSFERASE 24 U/L (3-33); ALBUMIN/GLOBULIN RATIO 0.9 (1.0-2.7); ANION GAP 17 (5-15); ASPARTATE AMINO TRANSFERASE 29 U/L (5-40); CALCIUM 8.7 mg/dL (8.6-10.2); CARBON DIOXIDE 26 mEQ/L (20-30); CHLORIDE 95 mEQ/L (98-107); CREATININE 1.3 mg/dL (0.5-0.9); HEMOLYSIS 0; MAGNESIUM 1.6 mg/dL (1.7-2.5); POTASSIUM 3.3 mEQ/L (3.4-4.9); SODIUM 138 mEQ/L (135-145); TOTAL PROTEIN 7.6 g/dL (6.6-8.7)
[2017-02-04 08:39] LABS: BILIRUBIN,DIRECT 0.4 mg/dL (0.1-0.3)
[2017-02-04] MEDS: Furosemide 40mg tab ORAL SCH (09:03)
[2017-02-04] MEDS: Metoprolol 50mg tab ORAL SCH ×2 (09:03→21:02)
[2017-02-04] MEDS: Losartan 50mg tab ORAL SCH ×2 (09:03→21:02)
[2017-02-04] MEDS: Spironolactone 25mg tab ORAL SCH (09:03)
[2017-02-04 12:21] VITALS: BP 135/83
[2017-02-04] MEDS: Sucralfate 1gm tab ORAL SCH ×2 (12:33→17:35)
--- NOTE | 2017-02-04 13:08 | Consultation ---
DATE OF CONSULTATION: 02/03/2017 GASTROLOGY CONSULTATION CHIEF COMPLAINT: I was asked to see this patient by Dr. Miguel Mason for evaluation of abdominal pain and heme-positive stools. HISTORY OF PRESENT ILLNESS: The patient is a pleasant 81-year-old, woman, who was admitted to the hospital. She complained of abdominal pain going on for perhaps about a year. She says her last endoscopy and colonoscopy was about a year ago and she is not aware of the results. She has a bowel movement about once daily. She complaints of intermittent hematochezia and stools for occult blood was positive. The pain does not change with bowel movements or eating. The pain can last 2 hours, but there is no nausea, vomiting or weight change. PAST MEDICAL HISTORY: Status post cardiac defibrillator placement, systolic congestive heart failure, hypertensive heart disease, paroxysmal atrial fibrillation, history of maternal tachycardia and sudden , type 2 diabetes mellitus, history of gastric carcinoma, status post gastrectomy, iron deficiency anemia, osteoarthritis, and degenerative joint disease. MEDICATIONS: See chart for details. ALLERGIES: Codeine. FAMILY HISTORY: Noncontributory. SOCIAL HISTORY: The patient does not smoke or drink alcohol. REVIEW OF SYSTEMS: Otherwise negative. PHYSICAL EXAMINATION: GENERAL: This is a pleasant woman, seen in her room. HEENT: Normocephalic and atraumatic. Sclerae anicteric. Oropharynx is clear. NECK: Supple. CHEST: Clear to auscultation. CARDIOVASCULAR: Revealed a regular rate. ABDOMEN: Soft. Good bowel sounds. There is no organomegaly. The patient does have a midline scar. EXTREMITIES: Revealed no edema. NEUROLOGIC: Nonfocal. LABORATORY AND DIAGNOSTIC DATA: Laboratory data noted. ASSESSMENT: This patient presents with abdominal pain persistent also heme-positive stools and also some degree of anemia. The patient is a candidate for endoscopy and colonoscopy to evaluate the gastrointestinal tract for any lesions that cause both pain and bleeding. If the endoscopy and colonoscopy for cause of pain then a CT scan of the abdomen and pelvis to be done to evaluate the other pathologies. Indications, risks, alternatives, and possible complications of the procedure were explained the patient. Informed consent was obtained. RECOMMENDATIONS: 1. Begin gastrointestinal tract preparation. 2. Endoscopy and colonoscopy in two days. 3. Possible CT scan to follow. Thank you for asking to participate in care of this patient. Mauro Stephenson M.D. DR: Beni JOB#: [id number] CC:
--- NOTE | 2017-02-04 13:26 | General Progress Note ---
Assessment/Plan Problem List: (1) Anemia ICD Codes: D64.9 - Anemia, unspecified SNOMED: 983128065 (2) GI bleed ICD Codes: K92.2 - Gastrointestinal hemorrhage, unspecified SNOMED: 93547351 (3) Gastric cancer ICD Codes: C16.9 - Malignant neoplasm of stomach, unspecified SNOMED: 894249273 (4) Elevated troponin (5) Dyspepsia ICD Codes: K30 - Dyspepsia SNOMED: 064682295 (6) Chest pain ICD Codes: R07.9 - Chest pain, unspecified SNOMED: 55605905 (7) CHF exacerbation ICD Codes: I50.9 - CHF exacerbation SNOMED: 01812635 (8) ICD (implantable cardiac defibrillator) discharge ICD Codes: Z03.89 - ICD (implantable cardiac defibrillator) discharge SNOMED: 090485829 (9) Paroxysmal a-fib ICD Codes: I48.0 - Paroxysmal a-fib SNOMED: 731064350 (10) CHF exacerbation ICD Codes: I50.9 - Heart failure, unspecified SNOMED: 95629179 Status: stable, progressing Assessment/Plan hold xarelto due to heme positive stools monitor for bleeding PPI rx egd tomorrow Subjective ROS Limited/Unobtainable: No Constitutional: Reports: malaise, weakness HEENT: Reports: no symptoms Cardiovascular: Reports: no symptoms Respiratory: Reports: SOB with excertion Gastrointestinal/Abdominal: Reports: no symptoms Genitourinary: Reports: no symptoms Neurologic/Psychiatric: Reports: no symptoms Endocrine: Reports: no symptoms Hematologic/Lymphatic: Reports: no symptoms Allergies: Coded Allergies: CODEINE (Verified Allergy, Unknown, 09/25/10) All Systems: reviewed and negative except above Subjective c/o dizziness. +LEIGH. still feels weak. d/w gi. plan for egd tomorrow. pt agreeable Objective Last 24 Hour Vital Signs Date Time Temp Pulse Resp B/P Pulse Ox O2 Delivery O2 Flow Rate FiO2 02/04/17 12:21 97.0 99 21 135/83 100 Room Air 02/04/17 09:03 120/75 02/04/17 09:03 84 120/75 02/04/17 07:43 96.6 84 18 120/75 98 Room Air 02/04/17 03:55 98.3 83 19 128/75 98 Room Air 02/04/17 00:01 98.5 76 18 112/74 96 Room Air 02/03/17 21:30 78 124/73 02/03/17 21:28 124/73 02/03/17 20:20 98.8 78 17 124/73 98 Room Air 02/03/17 15:57 97.0 71 18 145/76 99 Nasal Cannula 2.0 Intake and Output 02/03/17 02/04/17 19:00 07:00 Intake Total 240 ml Balance 240 ml Intake Oral 240 ml # Voids 3 2 Laboratory Tests 02/04/17 06:55: White Blood Count 8.6, Red Blood Count 3.69L, Hemoglobin 9.5L, Hematocrit 31.5L , Mean Corpuscular Volume 85, Mean Corpuscular Hemoglobin 25.9L, Mean Corpuscular Hemoglobin Concent 30.3L, Red Cell Distribution Width 17.3H, Platelet Count 130L, Mean Platelet Volume 12.8H, Neutrophils (%) (Auto) 63.5, Lymphocytes (%) (Auto) 19.7L, Monocytes (%) (Auto) 13.8H, Eosinophils (%) (Auto ) 1.6, Basophils (%) (Auto) 1.4, Sodium Level 138, Potassium Level 3.3L, Chloride Level 95L, Carbon Dioxide Level 26, Anion Gap 17H, Blood Urea Nitrogen 26H, Creatinine 1.3H, Estimat Glomerular Filtration Rate , Glucose Level 134H, Calcium Level 8.7, Magnesium Level 1.6L, Total Bilirubin 1.3H, Direct Bilirubin 0.4H, Aspartate Amino Transf (AST/SGOT) 29, Alanine Aminotransferase (ALT/SGPT) 24, Alkaline Phosphatase 81, Pro-B-Type Natriuretic Peptide 4346H, Total Protein 7.6, Albumin 3.6, Globulin 4.0, Albumin/Globulin Ratio 0.9L Height (Feet): 5 Height (Inches): 5.00 Weight (Pounds): 150 Objective General Appearance: WD/WN, alert Neck: supple Cardiovascular: regular rhythm Respiratory/Chest: lungs clear Abdomen: normal bowel sounds, non tender, soft, no organomegaly Neurologic: alert, oriented x 3, responsive Skin: normal pigmentation DANIELLE SIMONS Feb 04, 2017 13:26
[2017-02-04 15:38] VITALS: BP 121/65
--- NOTE | 2017-02-04 19:33 | General Progress Note ---
Assessment/Plan Assessment/Plan Assessment - Abdominal pain - OB (+) - h/o gastric CA - anemia - HTN - CHF Recommendations - GI Prep - EGD/ Colon in am - will consider CT after above Subjective Allergies: Coded Allergies: CODEINE (Verified Allergy, Unknown, 09/25/10) Subjective feels OK difficulty taking golytely Objective Last 24 Hour Vital Signs Date Time Temp Pulse Resp B/P Pulse Ox O2 Delivery O2 Flow Rate FiO2 02/04/17 15:38 97.5 80 19 121/65 99 Room Air 02/04/17 12:21 97.0 99 21 135/83 100 Room Air 02/04/17 09:03 120/75 02/04/17 09:03 84 120/75 02/04/17 07:43 96.6 84 18 120/75 98 Room Air 02/04/17 03:55 98.3 83 19 128/75 98 Room Air 02/04/17 00:01 98.5 76 18 112/74 96 Room Air 02/03/17 21:30 78 124/73 02/03/17 21:28 124/73 02/03/17 20:20 98.8 78 17 124/73 98 Room Air Intake and Output 02/03/17 02/04/17 19:00 07:00 Intake Total 240 ml Balance 240 ml Intake Oral 240 ml # Voids 3 2 Laboratory Tests 02/04/17 06:55: White Blood Count 8.6, Red Blood Count 3.69L, Hemoglobin 9.5L, Hematocrit 31.5L , Mean Corpuscular Volume 85, Mean Corpuscular Hemoglobin 25.9L, Mean Corpuscular Hemoglobin Concent 30.3L, Red Cell Distribution Width 17.3H, Platelet Count 130L, Mean Platelet Volume 12.8H, Neutrophils (%) (Auto) 63.5, Lymphocytes (%) (Auto) 19.7L, Monocytes (%) (Auto) 13.8H, Eosinophils (%) (Auto ) 1.6, Basophils (%) (Auto) 1.4, Sodium Level 138, Potassium Level 3.3L, Chloride Level 95L, Carbon Dioxide Level 26, Anion Gap 17H, Blood Urea Nitrogen 26H, Creatinine 1.3H, Estimat Glomerular Filtration Rate , Glucose Level 134H, Calcium Level 8.7, Magnesium Level 1.6L, Total Bilirubin 1.3H, Direct Bilirubin 0.4H, Aspartate Amino Transf (AST/SGOT) 29, Alanine Aminotransferase (ALT/SGPT) 24, Alkaline Phosphatase 81, Pro-B-Type Natriuretic Peptide 4346H, Total Protein 7.6, Albumin 3.6, Globulin 4.0, Albumin/Globulin Ratio 0.9L Height (Feet): 5 Height (Inches): 5.00 Weight (Pounds): 150 Objective WDWN NCAT supple CTA RR soft ND no edema non focal BROOKS ORTIZ Feb 04, 2017 19:33
[2017-02-04 20:00] VITALS: BP 122/82
[2017-02-04] MEDS ORDERED: Furosemide 40mg tab ORAL SCH (21:00)
[2017-02-05] VITALS (13 sets, daily range): BP systolic 114–147; BP diastolic 69–99
[2017-02-05] MEDS: LORazepam 1mg tab ORAL PRN (00:10)
--- NOTE | 2017-02-05 02:28 | Progress Note ---
DATE: 02/04/2017 CARDIOLOGY PROGRESS NOTE SUBJECTIVE: The patient is without abdominal pain. No signs of new bleeding. OBJECTIVE: VITAL SIGNS: Blood pressure 122/82, pulse 83, and respirations 18. HEENT: Conjunctivae are pink. Oropharynx clear. NECK: Supple. LUNGS: Clear. CARDIAC: Irregularly irregular rhythm. Normal S1 and S2. A 1/6 systolic apical murmur. ABDOMEN: Soft and nontender. EXTREMITIES: Trace edema. LABORATORY DATA: Hemoglobin 9.3. BUN 26 and creatinine 1.3. Pro-natriuretic peptide down to 4300. Magnesium 1.6. IMPRESSION: 1. Hypomagnesemia. 2. Gastrointestinal bleeding. 3. Anemia with iron deficiency. 4. History of gastric cancer. 5. Paroxysmal atrial fibrillation. 6. Acute on chronic systolic congestive heart failure. 7. Cardiac defibrillator. PLAN: 1. Anticoagulation on hold. 2. Panendoscopy for diagnostic workup. 3. IV magnesium. 4. Hold furosemide while NPO. Miguel Mason M.D. DR: HINA JOB#: [id number] CC:
--- NOTE | 2017-02-05 02:58 | Progress Note ---
DATE: 02/06/2017 CARDIOLOGY PROGRESS NOTE: SUBJECTIVE: The patient has no chest pain or shortness of breath. Monitored rhythm is atrial fibrillation. She is now off telemetry. Hemoglobin stable. The patient has been off anticoagulation for almost a week. Panendoscopy results noted. OBJECTIVE: VITAL SIGNS: Blood pressure 135/83, heart rate 99, respiratory 21, and afebrile. NECK: Supple. LUNGS: Clear. CARDIAC: Irregularly irregular. Normal S1, S2. ABDOMEN: Soft and nontender. EXTREMITIES: Trace edema. IMPRESSION: 1. Implantable cardioverter-defibrillator. 2. Hypertensive cardiomyopathy. 3. Paroxysmal atrial fibrillation 4. Acute on chronic systolic congestive heart failure. 5. 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 6. Anemia. PLAN: Continue holding anticoagulation for an additional 4-5 days post biopsy, results of which are pending. Continue current cardiovascular regimen. Replace electrolytes including magnesium as clinical condition warrants. Iron supplementations to follow. Transfuse for hemoglobin below 8 g. Discharge plan home with son arranged for 02/07. Miguel Mason M.D. DR: Jennyfer JOB#: [id number] CC: SURAJ
[2017-02-05] MEDS: NovoLOG Insulin Flexpen SUBQ SCH ×4 (06:30→23:27)
[2017-02-05] MEDS ORDERED: Propofol 10mg/ml 20ml IV ONE (09:00)
[2017-02-05] MEDS ORDERED: Glycopyrrolate 0.2mg/ml 1ml Vial ONE (09:00)
[2017-02-05] MEDS ORDERED: LR 1000ml ONE (09:00)
[2017-02-05] MEDS: Spironolactone 25mg tab ORAL SCH (09:00)
[2017-02-05] MEDS ORDERED: Lidocaine 1% MPF 10mg/ml 5ml ONE (09:00)
[2017-02-05] MEDS ORDERED: NS 550ML IV ONE (09:00)
[2017-02-05] MEDS: Metoprolol 50mg tab ORAL SCH ×2 (09:00→21:00)
[2017-02-05] MEDS: Losartan 50mg tab ORAL SCH ×2 (09:00→21:00)
--- NOTE | 2017-02-05 09:05 | Pre-Procedure Note/Attestation ---
Pre-Procedure Note/Attestation Complete Prior to Procedure Planned Procedure: not applicable Procedure Narrative: EGD, Colon Indications for Procedure Pre-Operative Diagnosis: OB (+) Attestation I attest that I discussed the nature of the procedure; its benefits; risks and complications; and alternatives (and the risks and benefits of such alternatives ), prior to the procedure, with the patient (or the patient's legal business office representative). I attest that, if there was a reasonable possibility of needing a blood transfusion, the patient (or the patient's legal business office representative) was given the [facility] standardized written summary, pursuant to the Vadim Toro Blood Safety Act ([place] Health and Safety Code # 1645, as amended). I attest that I re-evaluated the patient just prior to the surgery and that there has been no change in the patient's H&P, except as documented below: BROOKS ORTIZ Feb 05, 2017 09:05
--- NOTE | 2017-02-05 10:00 | Anethesia Preoperative Eval ---
Anesthesia Pre-op PMH/ROS General Date of Evaluation: Feb 05, 2017 Time of Evaluation: 09:00 Anesthesiologist: roseann ASA Score: ASA 3 Mallampati Score Class I : Soft palate, uvula, fauces, pillars visible Class II: Soft palate, uvula, fauces visible Class III: Soft palate, base of uvula visible Class IV: Only hard plate visible Mallampati Classification: Class III Surgeon: molly Diagnosis: abdominal pain Surgical Procedure: egd/Colonoscopy Anesthesia History: none Family History: no anesthesia problems Allergies: Coded Allergies: CODEINE (Verified Allergy, Unknown, 09/25/10) Medications: see eMAR Past Medical History Cardiovascular: Reports: CAD, HTN, arrhythmia - afib, other - chf Gastrointestinal/Genitourinary: Reports: CRI, GERD Neurologic/Psychiatric: Denies: CVA, TIA, dementia, depression/anxiety, other Endocrine: Reports: DM HEENT: Denies: NAVAJO (L), NAVAJO (R), cataract (L), cataract (R), glaucoma, other Hematology/Immune: Reports: anemia Musculoskeletal/Integumentary: Denies: DDD, DJD, OA, RA, edema, other Anesthesia Pre-op Phys. Exam Physician Exam Last Vital Signs Date Time Temp Pulse Resp B/P Pulse Ox O2 Delivery O2 Flow Rate FiO2 02/05/17 08:00 96.6 81 18 131/99 97 Room Air 02/03/17 15:57 2.0 Constitutional: NAD Neurologic: CN 2-12 intact Cardiovascular: other - afib Gastrointestinal: S/NT/ND Airway Exam Mallampati Classification 2 Mallampati Score: Class II MO: full ROM: full Teeth: missing Dentures: no lower, no upper Anesthesia Pre-op A/P Studies Pre-op Studies: EKG - AFIB Risk Assessment & Plan Plan: mac Status Change Before Surgery: No Pre-Antibiotics Drug: none MCKENZIE BUCK CRNA Feb 05, 2017 10:00
--- NOTE | 2017-02-05 10:21 | Immediate Post-Op Evaluation ---
Immediate Post-Op Evalulation Immediate Post-Op Evalulation Procedure: egd/colonoscopy Date of Evaluation: Feb 05, 2017 Time of Evaluation: 10:20 IV Fluids: 500 Blood Pressure Systolic: 120 Blood Pressure Diastolic: 77 Pulse Rate: 95 Respiratory Rate: 14 O2 Sat by Pulse Oximetry: 100 Nausea: No Vomiting: No Complications none Patient Status: awake, reacts, patent Hydration Status: adequate Drug: none MCKENZIE BUCK CRNA Feb 05, 2017 10:21
--- NOTE | 2017-02-05 10:35 | Endoscopy Procedure Note ---
Endoscopy Procedure Note Indication for Procedure: OB + Operative Findings/Diagnosis: s/p BII, AVM gastric bicap and clip, flat TV bx/ inj/hot, dim TV bx Specimen: yes Pt Tolerated Procedure Well: Yes Estimated Blood Loss: none Anesthesiologist: see notes Anesthesia: moderate sedation Medication Given: see anesthesia record Implant(s) used?: No 50 yrs or older w/o bx or poly: Not Applicable 10yrs. F/U not recommended: Not Applicable If not recommended, why?: BROOKS ORTIZ Feb 05, 2017 10:35
--- NOTE | 2017-02-05 10:37 | Brief Operative Note ---
Immediate Post Operative Note Operative Note Chief Complaint: OB+ Pre-op Diagnosis: OB (+) Procedure: Egd, colon Post-op Diagnosis: gastric abvm, colon polyp Surgeon: kaylie Anesthesiologist: see list Anesthesia: MAC Specimen: none Complications: none Condition: unstable Estimated Blood Loss: none Drains: none Implant(s) used?: No BROOKS ORTIZ Feb 05, 2017 10:37
--- NOTE | 2017-02-05 10:54 | General Progress Note ---
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 - h/o gastric CA - anemia - HTN - CHF Recommendations - GI Prep - EGD/ Colon today: - bleeding gastric AVM --> cauterized - two polyps removed - CT after above Subjective Allergies: Coded Allergies: CODEINE (Verified Allergy, Unknown, 09/25/10) Subjective No new complaints d/w patient re w/u Objective Last 24 Hour Vital Signs Date Time Temp Pulse Resp B/P Pulse Ox O2 Delivery O2 Flow Rate FiO2 02/05/17 10:50 97.3 98 18 128/73 99 Room Air 02/05/17 10:35 96 16 129/79 96 Room Air 02/05/17 10:30 95 15 124/74 100 Room Air 02/05/17 10:21 95 14 100 02/05/17 10:20 92 17 118/84 96 Room Air 02/05/17 10:10 91 19 114/77 97 Room Air 02/05/17 10:05 97.4 98 18 120/81 96 Room Air 02/05/17 08:00 96.6 81 18 131/99 97 Room Air 02/05/17 04:00 97.9 85 18 129/69 97 Room Air 02/05/17 00:00 97.7 78 18 147/82 100 Room Air 02/04/17 21:02 83 122/82 02/04/17 21:02 122/82 02/04/17 20:00 97.7 83 18 122/82 100 Room Air 02/04/17 15:38 97.5 80 19 121/65 99 Room Air 02/04/17 12:21 97.0 99 21 135/83 100 Room Air Intake and Output 02/04/17 02/05/17 19:00 07:00 Intake Total 1250 ml 200 ml Balance 1250 ml 200 ml Intake Oral 1250 ml IV Total 200 ml # Voids 7 3 # Bowel Movements 10 5 Height (Feet): 5 Height (Inches): 5.00 Weight (Pounds): 144 Objective WDWN NCAT supple CTA RR soft ND no edema non focal BROOKS ORTIZ Feb 05, 2017 10:54
[2017-02-05] MEDS: Sucralfate 1gm tab ORAL SCH ×2 (11:30→18:54)
--- NOTE | 2017-02-05 13:14 | 48 Hour Post Anesthesia Eval ---
Post Anesthesia Evaluation Procedure: egd/colonoscopy Date of Evaluation: Feb 05, 2017 Time of Evaluation: 13:14 Blood Pressure Systolic: 128 0: 73 Pulse Rate: 65 Respiratory Rate: 14 O2 Sat by Pulse Oximetry: 99 Airway: patent Nausea: No Vomiting: No Hydration Status: adequate Mental Status/LOC: patient returned to baseline Post-Anesthesia Complications: none Follow-up care needed: N/A MCKENZIE BUCK CRNA Feb 05, 2017 13:14
[2017-02-05] MEDS ORDERED: NS 275ml ONE ×2 (14:12→15:26)
[2017-02-05] MEDS ORDERED: Tubing IV Secondary IV ONE ×2 (14:12→15:26)
--- NOTE | 2017-02-05 14:17 | General Progress Note ---
Assessment/Plan Problem List: (1) Anemia ICD Codes: D64.9 - Anemia, unspecified SNOMED: 096975427 (2) GI bleed ICD Codes: K92.2 - Gastrointestinal hemorrhage, unspecified SNOMED: 22538305 (3) Gastric cancer ICD Codes: C16.9 - Malignant neoplasm of stomach, unspecified SNOMED: 638110805 (4) Elevated troponin (5) Dyspepsia ICD Codes: K30 - Dyspepsia SNOMED: 644102434 (6) Chest pain ICD Codes: R07.9 - Chest pain, unspecified SNOMED: 85096914 (7) CHF exacerbation ICD Codes: I50.9 - CHF exacerbation SNOMED: 74910573 (8) ICD (implantable cardiac defibrillator) discharge ICD Codes: Z03.89 - ICD (implantable cardiac defibrillator) discharge SNOMED: 271825574 (9) Paroxysmal a-fib ICD Codes: I48.0 - Paroxysmal a-fib SNOMED: 998815631 (10) CHF exacerbation ICD Codes: I50.9 - Heart failure, unspecified SNOMED: 27976297 Status: stable Assessment/Plan ppi rx monitor for bleeding xarelto when cleared by gi Subjective ROS Limited/Unobtainable: No Constitutional: Reports: malaise, weakness HEENT: Reports: no symptoms Cardiovascular: Reports: no symptoms Respiratory: Reports: no symptoms Gastrointestinal/Abdominal: Reports: blood in stool Genitourinary: Reports: no symptoms Neurologic/Psychiatric: Reports: no symptoms Endocrine: Reports: no symptoms Hematologic/Lymphatic: Reports: anemia Allergies: Coded Allergies: CODEINE (Verified Allergy, Unknown, 09/25/10) All Systems: reviewed and negative except above Subjective s/p egd. bleeding avm cauterized. Objective Last 24 Hour Vital Signs Date Time Temp Pulse Resp B/P Pulse Ox O2 Delivery O2 Flow Rate FiO2 02/05/17 13:14 65 14 99 02/05/17 11:32 85 128/87 02/05/17 10:50 97.3 98 18 128/73 99 Room Air 02/05/17 10:35 96 16 129/79 96 Room Air 02/05/17 10:30 95 15 124/74 100 Room Air 02/05/17 10:21 95 14 100 02/05/17 10:20 92 17 118/84 96 Room Air 02/05/17 10:10 91 19 114/77 97 Room Air 02/05/17 10:05 97.4 98 18 120/81 96 Room Air 02/05/17 08:00 96.6 81 18 131/99 97 Room Air 02/05/17 04:00 97.9 85 18 129/69 97 Room Air 02/05/17 00:00 97.7 78 18 147/82 100 Room Air 02/04/17 21:02 83 122/82 02/04/17 21:02 122/82 02/04/17 20:00 97.7 83 18 122/82 100 Room Air 02/04/17 15:38 97.5 80 19 121/65 99 Room Air Intake and Output 02/04/17 02/05/17 19:00 07:00 Intake Total 1250 ml 200 ml Balance 1250 ml 200 ml Intake Oral 1250 ml IV Total 200 ml # Voids 7 3 # Bowel Movements 10 5 Height (Feet): 5 Height (Inches): 5.00 Weight (Pounds): 144 Objective General Appearance: WD/WN, alert Neck: supple Cardiovascular: regular rhythm Respiratory/Chest: lungs clear Abdomen: normal bowel sounds, non tender, soft, no organomegaly Neurologic: alert, oriented x 3, responsive Skin: normal pigmentation DANIELLE SIMONS Feb 05, 2017 14:17
--- NOTE | 2017-02-05 14:21 | Diagnostic Imaging Report ---
Clinical Indication: Abdominal pain Technique: Patient given oral contrast. IV administration nonionic contrast. Venous phase spiral acquisition obtained through the abdomen and pelvis. Multiplanar reconstructions were generated. Total dose length product 698 mGycm. CTDIvol(s) 14 mGy. Dose reduction achieved using automated exposure control Comparison: 02/03/[address] Findings: The appendix is normal. No evidence of diverticulosis or diverticulitis. There is edema of the perirectal fat again demonstrated, perhaps slightly increased. No small bowel distention. There is evidence of prior partial gastrectomy with gastrojejunal and jejunojejunal anastomoses. A metallic foreign body is seen protruding into the lumen from the mucosal surface of the anterior gastric wall inferiorly. This measures about 15 mm in length and was not evident previously. There is a dilated single loop of small bowel in the left upper quadrant which appears to be surrounded by surgical anastomotic osmar. This was much less dilated previously. The wall of this loop is apparently much thinner currently. What are probably vascular embolic coils are located immediately posteriorly to this loop. What what are either surgical clips or vascular embolic coils are seen adjacent to the posterior gastric wall. Contrast is seen throughout most of the small bowel distal to the dilated loop, although not quite reaching the colon. Small bowel loops are nondilated otherwise. There is trace free intraperitoneal fluid adjacent to the tip of the right hepatic lobe. This is not evident previously. The liver is unremarkable. The gallbladder demonstrates no stones, but there is equivocally mild gallbladder wall thickening. The gallbladder is nondistended, however. The pancreas is somewhat atrophic. The spleen is unremarkable. There is a 14 mm diameter left adrenal mass which demonstrates nonspecific soft tissue attenuation. The right adrenal is unremarkable. The kidneys are unremarkable. However, there is some perinephric stranding, currently on the left. This may be slightly increased from the prior study. No retroperitoneal or mesenteric mass or adenopathy. The uterus is not evident, presumed surgically absent. The bladder is distended. The heart is enlarged. The inferior vena cava and hepatic veins are distended, there is reflux of contrast into them. Pacemaker wires are seen within the heart. There is a small left pleural effusion. There are minimal posterior dependent pulmonary parenchymal atelectatic changes. The bones demonstrate degenerative spondylosis changes.. Impression: Persistent infiltration/edema of the perirectal fat, perhaps slightly increased over 2 days. Thickening is uncertain but could indicate proctitis changes What appears to be a clip is seen protruding into the gastric lumen. Electronic medical record indicates that a clip was placed recently endoscopically for treatment of an arteriovenous malformation Dilatation of the small bowel at level of jejunojejunal anastomosis. This is presumably functional, probably related to prior surgery, as there does not appear to be any obstruction to forward transit of contrast Other postsurgical changes as described Trace free intraperitoneal fluid, new or increased since the prior study. Equivocal gallbladder wall thickening. Probably artifact of under distention, could also be related to edema related to right heart failure. However, there is high suspicion for acute cholecystitis, consideration should be given to sonography or nuclear medicine hepatobiliary scanning Cardiomegaly. Evidence of central venous hypertension 14 mm left adrenal mass. Also evident on 06/11/2014 CT scan, therefore presumed benign Nonspecific bilateral perinephric stranding, equivocally slightly increased from the previous study Trace left pleural effusion, slightly increased over 2 days Incidental findings as noted, includi -- ng degenerative spondylosis, minimal posterior dependent pulmonary parenchymal atelectasis, pacemaker, surgically absent uterus The CT scanner at [facility] is accredited by the [employer] and the scans are performed using protocols designed to limit radiation exposure to as low as reasonably achievable to attain images of sufficient resolution adequate for diagnostic evaluation.
--- NOTE | 2017-02-05 17:28 | Operative Note - Dictated ---
DATE OF OPERATION: 02/05/2017 PROCEDURES: Upper endoscopy with enteroscopy as well as BICAP cautery and Endoclip placement and colonoscopy with injection of saline and hot snare polypectomy as well as cold biopsy. SURGEON: Mauro Stephenson M.D. ANESTHESIA: Please see the separate anesthesiologist notes for details. PRE-ENDOSCOPIC DIAGNOSIS: Heme-positive stools. POST-ENDOSCOPIC DIAGNOSES: 1. Status post distal gastrectomy with Billroth-II anastomosis. 2. Bleeding arteriovenous malformation versus Dieulafoy's lesion in the anastomotic region status post BICAP cautery as well as Endoclip placement. 3. Flat polyp in the proximal transverse colon, measured approximately 7 to 8 mm status post biopsy followed by injection of saline to lift followed by snare polypectomy. 4. Diminutive distal transverse colon polyp status post biopsy removal. DESCRIPTION OF PROCEDURE: The procedure, its risks, indications, alternatives, and possible complications were explained and informed consent was obtained. The patient was then sedated and a diagnostic upper endoscope was introduced through the oropharynx and advanced to the duodenum. The endoscope was removed and the mucosa was examined carefully. Examination of the upper gastric mucosa revealed a Billroth-II anatomy. There was a bleeding arteriovenous malformation versus Dieulafoy's lesion at the gastrojejunal junction. This lesion was treated with the BICAP gold probe cautery first, which slowed down, but did not resolve the bleeding. An Endoclip was subsequently placed on this lesion, which resulted in cessation of bleeding. The endoscope was removed and the rectal exam was done and the colonoscope was introduced into the rectum and advanced to the cecum without difficulty. The cecum was identified by the appearance of the ileocecal valve. The colonoscope was then gradually withdrawn and the mucosa examined carefully. Examination of the colonic mucosa revealed the transverse colon flat polyp measuring approximately 7 mm to 8 mm. An attempt was made to biopsy, but it was felt to be best removed with polypectomy. Therefore, after single biopsy was obtained, the biopsy was removed and the lesion was injected with saline to raise it and the snare polypectomy was used to remove the lesion with the hot snare technique. In the distal transverse colon, there was a diminutive polyp, which was removed with biopsy forceps. The remainder of the examination was unremarkable. The endoscope was removed and the patient was sent to recovery in good condition. COMPLICATIONS: None. RECOMMENDATIONS: 1. Follow up biopsy results. 2. CT scan for further evaluation of abdominal pain. 3. Monitor CBC. Mauro Stephenson M.D. DR: VENANCIO JOB#: [id number] CC:
--- NOTE | 2017-02-05 23:37 | Progress Note ---
DATE: 02/05/2017 SUBJECTIVE: The patient has some abdominal distention and discomfort, but no nausea, vomiting, or significant pain. She is not short of breath. The patient had an endoscopy and colonoscopy today. Those studies were notable for small flat polyp of the colon, AVM status post BICAP of the stomach. A CAT scan of the abdomen revealed no changes from prior study. No acute pathology other than possible proctitis OBJECTIVE: VITAL SIGNS: Blood pressure 139/75, pulse 78, and respirations 18. Oxygen saturation 98% on room air. NECK: Supple. LUNGS: With diminished breath sounds. No rales. CARDIAC: Irregularly irregular rhythm. Normal S1 and S2. A 1/6 systolic apical murmur. ABDOMEN: Soft and slightly distended. No tenderness. EXTREMITIES: Trace pedal edema. IMPRESSION: 1. Gastrointestinal bleed. 2. Arteriovenous malformation. 3. Acute on chronic systolic congestive heart failure. 4. Iron deficiency with anemia. 5. Urinary tract infection. PLAN: 1. Titrate cardiovascular regimen. 2. Continue Carafate. 3. Await GI clearance to resume cardioembolic prophylaxis with rivaroxaban. 4. Discharge planning. 5. Continue antibiotics for urinary tract infection. Miguel Mason M.D. DR: MELI JOB#: [id number] CC:
[2017-02-06 04:00] VITALS: BP 137/80
[2017-02-06] MEDS: NovoLOG Insulin Flexpen SUBQ SCH ×4 (06:49→21:27)
--- NOTE | 2017-02-06 07:26 | General Progress Note ---
Assessment/Plan Problem List: (1) Anemia ICD Codes: D64.9 - Anemia, unspecified SNOMED: 412989713 (2) GI bleed ICD Codes: K92.2 - Gastrointestinal hemorrhage, unspecified SNOMED: 27867290 (3) Gastric cancer ICD Codes: C16.9 - Malignant neoplasm of stomach, unspecified SNOMED: 345555028 (4) Elevated troponin (5) Dyspepsia ICD Codes: K30 - Dyspepsia SNOMED: 718011316 (6) Chest pain ICD Codes: R07.9 - Chest pain, unspecified SNOMED: 05522132 (7) CHF exacerbation ICD Codes: I50.9 - CHF exacerbation SNOMED: 26806528 (8) ICD (implantable cardiac defibrillator) discharge ICD Codes: Z03.89 - ICD (implantable cardiac defibrillator) discharge SNOMED: 236716401 (9) Paroxysmal a-fib ICD Codes: I48.0 - Paroxysmal a-fib SNOMED: 766245687 (10) CHF exacerbation ICD Codes: I50.9 - Heart failure, unspecified SNOMED: 02387114 Status: progressing Assessment/Plan ppi rx monitor for bleeding xarelto when cleared by gi stable for dc but social media senior associate not available till tomorrow. Subjective ROS Limited/Unobtainable: No Constitutional: Reports: malaise, weakness HEENT: Reports: no symptoms Cardiovascular: Reports: no symptoms Respiratory: Reports: no symptoms Gastrointestinal/Abdominal: Reports: no symptoms Genitourinary: Reports: no symptoms Neurologic/Psychiatric: Reports: no symptoms Endocrine: Reports: no symptoms Hematologic/Lymphatic: Reports: anemia Allergies: Coded Allergies: CODEINE (Verified Allergy, Unknown, 09/25/10) All Systems: reviewed and negative except above Subjective s/p egd. bleeding avm cauterized. w/o complaints. no bleeding noted. no fever or chills. tolerating diet. Objective Last 24 Hour Vital Signs Date Time Temp Pulse Resp B/P Pulse Ox O2 Delivery O2 Flow Rate FiO2 02/06/17 04:00 97.5 79 20 137/80 97 Room Air 02/05/17 23:33 18 130/88 Room Air 97.0 02/05/17 21:00 85 130/88 02/05/17 21:00 130/88 02/05/17 16:00 96.8 78 18 139/75 98 Room Air 02/05/17 13:14 65 14 99 02/05/17 12:00 96.3 103 18 133/98 97 Room Air 02/05/17 11:32 85 128/87 02/05/17 10:50 97.3 98 18 128/73 99 Room Air 02/05/17 10:35 96 16 129/79 96 Room Air 02/05/17 10:30 95 15 124/74 100 Room Air 02/05/17 10:21 95 14 100 02/05/17 10:20 92 17 118/84 96 Room Air 02/05/17 10:10 91 19 114/77 97 Room Air 02/05/17 10:05 97.4 98 18 120/81 96 Room Air 02/05/17 08:00 96.6 81 18 131/99 97 Room Air Intake and Output 02/05/17 02/06/17 19:00 07:00 Intake Total 550 ml Output Total 500 ml Balance 550 ml -500 ml Intake Oral 550 ml Other 500 ml # Voids 4 # Bowel Movements 2 1 Laboratory Tests 02/06/17 07:00: White Blood Count [Pending], Red Blood Count [Pending], Hemoglobin [Pending], Hematocrit [Pending], Mean Corpuscular Volume [Pending], Mean Corpuscular Hemoglobin [Pending], Mean Corpuscular Hemoglobin Concent [Pending], Red Cell Distribution Width [Pending], Platelet Count [Pending], Mean Platelet Volume [ Pending], Neutrophils (%) (Auto) [Pending], Lymphocytes (%) (Auto) [Pending], Monocytes (%) (Auto) [Pending], Eosinophils (%) (Auto) [Pending], Basophils (%) (Auto) [Pending], Sodium Level [Pending], Potassium Level [Pending], Chloride Level [Pending], Carbon Dioxide Level [Pending], Blood Urea Nitrogen [Pending], Creatinine [Pending], Estimat Glomerular Filtration Rate [Pending], Glucose Level [Pending], Calcium Level [Pending], Magnesium Level [Pending], Total Bilirubin [Pending], Aspartate Amino Transf (AST/SGOT) [Pending], Alanine Aminotransferase (ALT/SGPT) [Pending], Alkaline Phosphatase [Pending], Pro-B- Type Natriuretic Peptide [Pending], Total Protein [Pending], Albumin [Pending], Globulin [Pending] Height (Feet): 5 Height (Inches): 5.00 Weight (Pounds): 164 Objective General Appearance: WD/WN, alert Neck: supple Cardiovascular: regular rhythm Respiratory/Chest: lungs clear Abdomen: normal bowel sounds, non tender, soft, no organomegaly Neurologic: alert, oriented x 3, responsive Skin: normal pigmentation DANIELLE SIMONS Feb 06, 2017 07:26
[2017-02-06 07:31] LABS: BASOPHILS % (AUTO) 1.9 % (0.0-2.0); EOSINOPHILS % (AUTO) 1.3 % (0.0-3.0); LYMPHOCYTES % (AUTO) 20.3 % (20.0-45.0); MEAN CORPUSCULAR HEMOGLOBIN 25.8 PG (27.0-31.0); MEAN CORPUSCULAR HGB CONC 30.2 G/DL (32.0-36.0); MEAN CORPUSCULAR VOLUME 86 FL (80-99); MEAN PLATELET VOLUME 11.2 FL (6.5-10.1); MONOCYTES % (AUTO) 11.6 % (1.0-10.0); NEUTROPHILS % (AUTO) 64.9 % (45.0-75.0); PLATELET COUNT 139 K/UL (150-450); RED BLOOD COUNT 3.67 M/UL (4.20-5.40); RED CELL DISTRIBUTION WIDTH 17.5 % (11.6-14.8); WHITE BLOOD COUNT 7.4 K/UL (4.8-10.8)
[2017-02-06] MEDS ORDERED: COZAAR50 MG ORAL (07:36)
[2017-02-06] MEDS ORDERED: LEVAQUIN250 M1 ORAL (07:36)
[2017-02-06 07:41] VITALS: BP 115/62
[2017-02-06 08:05] LABS: ALANINE AMINOTRANSFERASE 31 U/L (3-33); ALBUMIN/GLOBULIN RATIO 0.8 (1.0-2.7); ANION GAP 17 (5-15); ASPARTATE AMINO TRANSFERASE 37 U/L (5-40); CALCIUM 8.6 mg/dL (8.6-10.2); CARBON DIOXIDE 24 mEQ/L (20-30); CHLORIDE 99 mEQ/L (98-107); CREATININE 1.3 mg/dL (0.5-0.9); MAGNESIUM 2.4 mg/dL (1.7-2.5); POTASSIUM 3.7 mEQ/L (3.4-4.9); SODIUM 140 mEQ/L (135-145); TOTAL PROTEIN 7.3 g/dL (6.6-8.7)
[2017-02-06 08:28] LABS: BILIRUBIN,DIRECT 0.3 mg/dL (0.1-0.3); HEMOLYSIS 1
[2017-02-06] MEDS: Losartan 50mg tab ORAL SCH ×2 (09:33→21:19)
[2017-02-06] MEDS: Furosemide 40mg tab ORAL SCH ×2 (09:33→21:19)
[2017-02-06] MEDS: Spironolactone 25mg tab ORAL SCH (09:33)
[2017-02-06] MEDS: Metoprolol 50mg tab ORAL SCH ×2 (09:34→21:19)
[2017-02-06 11:22] VITALS: BP 104/61
[2017-02-06] MEDS: Sucralfate 1gm tab ORAL SCH ×2 (12:41→17:30)
[2017-02-06 16:20] VITALS: BP 127/92
[2017-02-06 20:00] VITALS: BP_SYST 117; BP_SYST 139; BP_DIAS 66; BP_DIAS 76
--- NOTE | 2017-02-06 20:14 | General Progress Note ---
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 - h/o gastric CA - anemia - HTN - CHF Recommendations - push po - hold Xarelto x 72 post EGD ( can restart Thursday) - d/c planning Subjective Allergies: Coded Allergies: CODEINE (Verified Allergy, Unknown, 09/25/10) Subjective No new complaints d/w patient re findings d/w PMD/cards Objective Last 24 Hour Vital Signs Date Time Temp Pulse Resp B/P Pulse Ox O2 Delivery O2 Flow Rate FiO2 02/06/17 16:20 99.3 86 15 127/92 100 Room Air 02/06/17 11:22 98.1 73 15 104/61 99 Room Air 02/06/17 09:34 83 121/70 02/06/17 09:33 121/70 02/06/17 07:41 97.9 84 15 115/62 98 Room Air 02/06/17 04:00 97.5 79 20 137/80 97 Room Air 02/05/17 23:33 18 130/88 Room Air 97.0 02/05/17 21:00 85 130/88 02/05/17 21:00 130/88 Intake and Output 02/05/17 02/06/17 19:00 07:00 Intake Total 550 ml Output Total 500 ml Balance 550 ml -500 ml Intake Oral 550 ml Other 500 ml # Voids 4 # Bowel Movements 2 1 Laboratory Tests 02/06/17 07:00: White Blood Count 7.4, Red Blood Count 3.67L, Hemoglobin 9.5L, Hematocrit 31.5L , Mean Corpuscular Volume 86, Mean Corpuscular Hemoglobin 25.8L, Mean Corpuscular Hemoglobin Concent 30.2L, Red Cell Distribution Width 17.5H, Platelet Count 139L, Mean Platelet Volume 11.2H, Neutrophils (%) (Auto) 64.9, Lymphocytes (%) (Auto) 20.3, Monocytes (%) (Auto) 11.6H, Eosinophils (%) (Auto) 1.3, Basophils (%) (Auto) 1.9, Sodium Level 140, Potassium Level 3.7, Chloride Level 99, Carbon Dioxide Level 24, Anion Gap 17H, Blood Urea Nitrogen 20, Creatinine 1.3H, Estimat Glomerular Filtration Rate , Glucose Level 128H, Calcium Level 8.6, Magnesium Level 2.4, Total Bilirubin 1.4H, Direct Bilirubin 0.3, Aspartate Amino Transf (AST/SGOT) 37, Alanine Aminotransferase (ALT/SGPT) 31, Alkaline Phosphatase 73, Pro-B-Type Natriuretic Peptide 2848H, Total Protein 7.3, Albumin 3.4L, Globulin 3.9, Albumin/Globulin Ratio 0.8L Height (Feet): 5 Height (Inches): 5.00 Weight (Pounds): 149 Objective WDWN NCAT supple CTA RR soft ND no edema non focal BROOKS ORTIZ Feb 06, 2017 20:14
[2017-02-06] MEDS: LORazepam 1mg tab ORAL PRN (23:05)
[2017-02-07] VITALS: BP 123/81
[2017-02-07 04:00] VITALS: BP 117/75
[2017-02-07] MEDS: NovoLOG Insulin Flexpen SUBQ SCH ×2 (06:02→12:43)
[2017-02-07 08:17] VITALS: BP 122/74
--- NOTE | 2017-02-07 08:58 | Discharge Summary ---
DATE OF ADMISSION: 01/26/2017 DATE OF DISCHARGE: 02/07/2017 ADMISSION DIAGNOSES: 1. Gastrointestinal bleed. 2. History of gastric carcinoma. 3. History of congestive heart failure. 4. History of automatic implantable cardioverter-defibrillator. 5. Paroxysmal atrial fibrillation. DISCHARGE DIAGNOSES: 1. Gastrointestinal bleed. 2. History of gastric carcinoma. 3. History of congestive heart failure. 4. History of automatic implantable cardioverter-defibrillator. 5. Paroxysmal atrial fibrillation. HOSPITAL COURSE: The patient is a very pleasant female with complaints of gastrointestinal bleed. She has prior history of gastric carcinoma. Xarelto was discontinued. She had stool occult blood positive stools. She was seen by GI. Xarelto was held. She underwent endoscopy that showed a bleeding AVM which was cauterized. On discharge, she was doing well. The patient will be off Xarelto for 3 additional days. She will be monitored for bleeding as an outpatient. DISCHARGE MEDICATIONS: Please see discharge medication list for discharge medications. DIET: Cardiac diet . Palomo Frankel M.D. DR: Roderick JOB#: [id number] CC:
[2017-02-07] MEDS: Losartan 50mg tab ORAL SCH (08:59)
[2017-02-07] MEDS: Furosemide 40mg tab ORAL SCH (09:00)
[2017-02-07] MEDS: Metoprolol 50mg tab ORAL SCH (09:00)
[2017-02-07] MEDS: Sucralfate 1gm tab ORAL SCH (09:00)
[2017-02-07] MEDS: Spironolactone 25mg tab ORAL SCH (09:00)
[2017-02-07 12:08] VITALS: BP 125/95
[2017-02-07] MEDS ORDERED: NS 275ml ONE (14:34)
--- NOTE | 2017-02-07 19:54 | General Progress Note ---
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 - h/o gastric CA - anemia - HTN - CHF Recommendations - push po - hold Xarelto x 72 post EGD ( can restart Thursday) - d/c planning Subjective Allergies: Coded Allergies: CODEINE (Verified Allergy, Unknown, 09/25/10) Subjective No new complaints d/w patient re findings d/w PMD/cards for discharge today Objective Last 24 Hour Vital Signs Date Time Temp Pulse Resp B/P Pulse Ox O2 Delivery O2 Flow Rate FiO2 02/07/17 12:08 97.9 86 15 125/95 98 Nasal Cannula 02/07/17 09:00 81 122/74 02/07/17 08:59 122/74 02/07/17 08:17 97.9 81 15 122/74 99 Room Air 02/07/17 04:00 97.9 80 18 117/75 100 Room Air 02/07/17 04:00 97.9 80 18 117/75 100 Room Air 02/07/17 00:00 98.2 68 18 123/81 100 Room Air 02/06/17 21:19 77 117/76 02/06/17 21:19 117/76 02/06/17 20:00 97.9 77 18 117/76 100 Room Air Intake and Output 02/06/17 02/07/17 19:00 07:00 Intake Total 1300 ml Balance 1300 ml Intake Oral 1300 ml # Voids 3 3 # Bowel Movements 1 Height (Feet): 5 Height (Inches): 5.00 Weight (Pounds): 146 Objective WDWN NCAT supple CTA RR soft ND no edema non focal BROOKS ORTIZ Feb 07, 2017 19:54
== END 2017-02-07 14:35 | disposition home or self-care (01) | DRG 377 ==
LOC: 2E 16:09 → 4E 02-04 11:03
DX: K31.811 Angiodysplasia of stomach and duodenum with bleeding (principal); I50.23 Acute on chronic systolic (congestive) heart failure; R57.0 Cardiogenic shock; I42.0 Dilated cardiomyopathy; D69.6 Thrombocytopenia, unspecified; E11.22 Type 2 diabetes mellitus with diabetic chronic kidney disease; N39.0 Urinary tract infection, site not specified; I13.0 Hypertensive heart and chronic kidney disease with heart failure and stage 1 through stage 4 chronic kidney disease, or unspecified chronic kidney disease; I48.0 Paroxysmal atrial fibrillation; Z95.810 Presence of automatic (implantable) cardiac defibrillator; Z86.74 Personal history of sudden cardiac arrest; Z88.6 Allergy status to analgesic agent; Z85.028 Personal history of other malignant neoplasm of stomach; Z90.3 Acquired absence of stomach [part of]; N18.9 Chronic kidney disease, unspecified; Z79.01 Long term (current) use of anticoagulants; M19.90 Unspecified osteoarthritis, unspecified site; D12.3 Benign neoplasm of transverse colon; E87.6 Hypokalemia; I95.1 Orthostatic hypotension; D50.9 Iron deficiency anemia, unspecified; B96.20 Unspecified Escherichia coli [E. coli] as the cause of diseases classified elsewhere; B96.4 Proteus (mirabilis) (morganii) as the cause of diseases classified elsewhere; R07.9 Chest pain, unspecified; E83.42 Hypomagnesemia
CPT/HCPCS: 36415; 74176; 74177; 80048; 80053; 80162; 82248; 82270; 82962; 83540; 83550; 83735; 83880; 84439; 84443; 84550; 85007; 85025; 86850; 86900; 86901; 86920; 87086; 87181; 93306; 94003; 94150; J1815; J8499

== ENCOUNTER 2018-02-06 09:10 | Inpatient (IN) | payer MEDICARE, OTHER ==
[~2018-02-06] VITALS: Ht 167.6 cm; Wt 62.1 kg
[2018-02-06] VITALS (7 sets, daily range): BP systolic 116–156; BP diastolic 69–125
[~2018-02-06 09:10] MED LIST changes: +BACLOFEN10 MG ORAL; +COZAAR50 MG ORAL; +LEVAQUIN250 M1 ORAL; +LORAZEPAM1 MG PO; +MECLIZINE HCL25 MG PO
[2018-02-06] MEDS ORDERED: Ipratropium 0.02% Inh Soln 2.5ml UD HHN ONE (09:15)
[2018-02-06] MEDS ORDERED: Albuterol ud Inhalation HHN ONE (09:15)
[2018-02-06] MEDS ORDERED: dilTIAZem HCl 25mg/5ml Inj IVP ONE (09:15)
[2018-02-06] MEDS ORDERED: dilTIAZem HCl 125mg/25ml Inj IVPB ONE (09:37)
[2018-02-06] MEDS ORDERED: Pantoprazole Inj IVP ONE (09:45)
[2018-02-06] MEDS ORDERED: dilTIAZem HCl 125mg/25ml Inj IVPB SCH (10:00)
[2018-02-06 10:18] LABS: HEMOGLOBIN 11.4 G/DL (12.0-16.0); MEAN CORPUSCULAR VOLUME 92 FL (80-99); PLATELET COUNT 91 K/UL (150-450); RED BLOOD COUNT 3.92 M/UL (4.20-5.40); RED CELL DISTRIBUTION WIDTH 15.1 % (11.6-14.8)
[2018-02-06 10:25] LABS: INR 1.3 (0.9-1.1)
[2018-02-06 10:28] LABS: ANION GAP 16 mmol/L (5-15); BLOOD UREA NITROGEN 26 mg/dL (7-18); CALCIUM 9.6 MG/DL (8.5-10.1); CARBON DIOXIDE 19 MMOL/L (21-32); CHLORIDE 104 MMOL/L (98-107); CREATININE 1.2 MG/DL (0.55-1.30); POTASSIUM 4.1 MMOL/L (3.5-5.1); SODIUM 139 MMOL/L (136-145)
[2018-02-06] MEDS ORDERED: Vancomycin 1 GM in D5W 275 ML IVPB ONE (10:30)
[2018-02-06] MEDS ORDERED: Acetaminophen 650 MG SUPP RECTAL ONE (10:30)
[2018-02-06] MEDS ORDERED: Piperacillin/Tazobactam 3.375 GM in NS 110 ML IVPB ONE (10:30)
[2018-02-06 10:43] LABS: ALANINE AMINOTRANSFERASE 18 U/L (12-78); ALBUMIN 3.7 G/DL (3.4-5.0); ALBUMIN/GLOBULIN RATIO 0.7 (1.0-2.7); ALKALINE PHOSPHATASE 81 U/L (46-116); ASPARTATE AMINO TRANSFERASE 29 U/L (15-37); BILIRUBIN,TOTAL 3.2 MG/DL (0.2-1.0); CREATINE KINASE 52 U/L (26-308)
[2018-02-06 10:44] LABS: BILIRUBIN,DIRECT 0.8 MG/DL (0.0-0.3)
--- NOTE | 2018-02-06 10:52 | Emergency Room Report ---
History of Present Illness General Chief Complaint: Dyspnea/Respdistress Source: Patient, Family Member Present Illness HPI The patient presents with dyspnea. She was discharged a week ago from a [facility] facility from acute hospitalization in [place] to be with her sister. One of her diagnosis was pneumonia. She was on a ventilator for period of time. She also had a ulcer in her stomach. Her sister says she's not been taking her medication all week. The patient's had a productive cough. It's unknown whether she has fevers. The patient's also had black stools recently. She feels palpitations. She denies chest pain. No dysuria. From last admission - d/c dx last year: 1. Gastrointestinal bleed. 2. History of gastric carcinoma. 3. History of congestive heart failure. 4. History of automatic implantable cardioverter-defibrillator. 5. Paroxysmal atrial fibrillation. Allergies: Coded Allergies: CODEINE (Verified Allergy, Unknown, 09/25/10) Patient History Limited by: medical condition Past Medical History: see triage record, old chart reviewed Past Surgical History: pacemaker Social History: Denies: smoking Social History Narrative recent move with sister Reviewed Nursing Documentation: PMH: Agreed; PSxH: Agreed Nursing Documentation-PMH Hx Cardiac Problems: Yes - pacemaker Hx Hypertension: Yes Hx Pacemaker: Yes Hx COPD: Yes Hx Diabetes: Yes Hx Cancer: No Hx Gastrointestinal Problems: Yes Hx Neurological Problems: Yes Hx Seizures: Yes Hx Dizziness: Yes Hx Weakness: Yes Review of Systems All Other Systems: limited Physical Exam Vital Signs Date Time Temp Pulse Resp B/P (MAP) Pulse Ox O2 Delivery O2 Flow Rate FiO2 02/06/18 09:14 97.3 176 44 156/125 89 Room Air 97.3 02/06/18 09:25 15.0 50 Sp02 EP Interpretation: reviewed, abnormal - low as interpreted by me General Appearance: alert, moderate distress Head: normocephalic, atraumatic Eyes: bilateral eye normal inspection, bilateral eye PERRL ENT: moist mucus membranes Neck: full range of motion, supple Respiratory: rales - bilateral at bases, tachypneic, Cardiovascular #1: tachycardia, edema - trace bilat Cardiovascular #2: 2+ radial (R) Gastrointestinal: normal inspection, non tender, no mass, non-distended, decreased bowel sounds Rectal: heme positive stool - yellow color Musculoskeletal: back normal, gait/station normal, normal range of motion, no calf tenderness, Lilian's Sign negative Neurologic: alert, motor strength/tone normal - generalized weakness, oriented - follows commands, keeps eyes shut, moves all 4 Psychiatric: anxious Skin: normal inspection, warm/dry Procedures Critical Care Time Critical Care Time Total Critical Care Time: 45 min bedside evaluation and treatment excludes procedures (EKG). Reason for critical care: a fib RVR, pneumonia, BIPAP Possible complications: hypotension, hypertension, [place], shock, arrhythmias, metabolic acidosis, end organ damage, respiratory failure. Interventions: diltiazem, antibiotics, BIPAP, repeat evaluations Course: Patient with resp distress. Rapid a fib - treated with diltiazem ( discussion with pharmacy who initially did not want to release as shortage). Repeat EKG. Rales - hard to tell CHF or pneumonia. Repeat eval with fever. Elevated BNP also. Improving on BIPAP and ABG obtained. Decision not to give aggressive fluids based on h/o CHF and multifactorial cause of elevated lactate. Guaiac + stool. Protonix ordered and blood. Patient improved. Discussed with Dr. Simons and family regarding findings. Consultations: nursing staff, EMS, family, RT, pharmacy Performed by: Dr. Garcia Tolerated well condition = serious Medical Decision Making Diagnostic Impression: Primary Impression: Pneumonia Qualified Codes: J18.1 - Lobar pneumonia, unspecified organism Additional Impressions: GI bleed Qualified Codes: K92.2 - Gastrointestinal hemorrhage, unspecified Atrial fibrillation with RVR ER Course Patient with resp distress. DDx: AMI, arrhythmia, pneumonia, CHF, anemia, GI bleed. Patient feels febrile to me, initial temp normal. Difficult to determine if worsened CHF or pneumonia. Evaluation with EKG, labs, BC, lactate , UA. Patient in moderate resp distress and will start BIPAP. If BIPAP unsuccessful, consider intubation. EKG with rapid a fib. Diltiazem ordered (necessitated discussion with pharmacist). CXR with bilat infiltrates, difficult to determine whether CHF or bilat infiltrates. Second EKG with improved rate after diltiazem. CBC elevated and patient febrile. Stating antibiotics. Improving on BIPAP. ABG ordered. ABG without CO2 retention and good oxygen. No more tachypnea. Due to the appearance of possible congestive heart failure and other etiologies of increased lactate we are holding on fluid boluses at this time. Elevated lactate is multifactorial. It is not advisable to treat with fluids as the patient's blood pressures maintaining in her heart rates much better after diltiazem. Guaiac + stool is yellow. Protonix ordered. H/O gastric carcinoma. H/H adequate but ordered type and Rh. Troponin neg. Repeat lactate is normal. Discussed with Dr. Simons and sister. Patient admitted to [facility], improved but still serious. Laboratory Tests Test 02/06/18 10:00 02/06/18 10:20 02/06/18 10:28 02/06/18 12:25 White Blood Count 12.0 K/UL (4.8-10.8) H Red Blood Count 3.92 M/UL (4.20-5.40) L Hemoglobin 11.4 G/DL (12.0-16.0) L Hematocrit 36.0 % (37.0-47.0) L Mean Corpuscular Volume 92 FL (80-99) Mean Corpuscular Hemoglobin 29.1 PG (27.0-31.0) Mean Corpuscular Hemoglobin Concent 31.7 G/DL (32.0-36.0) L Red Cell Distribution Width 15.1 % (11.6-14.8) H Platelet Count 91 K/UL (150-450) L Mean Platelet Volume 14.3 FL (6.5-10.1) H Neutrophils (%) (Auto) % (45.0-75.0) Lymphocytes (%) (Auto) % (20.0-45.0) Monocytes (%) (Auto) % (1.0-10.0) Eosinophils (%) (Auto) % (0.0-3.0) Basophils (%) (Auto) % (0.0-2.0) Differential Total Cells Counted 100 Neutrophils % (Manual) 84 % (45-75) H Lymphocytes % (Manual) 12 % (20-45) L Monocytes % (Manual) 4 % (1-10) Eosinophils % (Manual) 0 % (0-3) Basophils % (Manual) 0 % (0-2) Band Neutrophils 0 % (0-8) Platelet Estimate Decreased L Platelet Morphology Normal Hypochromasia 1+ Prothrombin Time 13.8 SEC (9.30-11.50) H Prothrombin Time INR 1.3 (0.9-1.1) H PTT 24 SEC (23-33) Sodium Level 139 MMOL/L (136-145) Potassium Level 4.1 MMOL/L (3.5-5.1) Chloride Level 104 MMOL/L (98-107) Carbon Dioxide Level 19 MMOL/L (21-32) L Anion Gap 16 mmol/L (5-15) H Blood Urea Nitrogen 26 mg/dL (7-18) H Creatinine 1.2 MG/DL (0.55-1.30) Estimate Glomerular Filtration Rate mL/min (>60) Glucose Level 186 MG/DL (74-106) H Hemoglobin A1c 6.3 % (4.3-6.0) H Lactic Acid Level 3.70 mmol/L (0.66-2.22) H 1.50 mmol/L (0.66-2.22) Calcium Level 9.6 MG/DL (8.5-10.1) Total Bilirubin 3.2 MG/DL (0.2-1.0) H Direct Bilirubin 0.8 MG/DL (0.0-0.3) H Aspartate Amino Transferase (AST) 29 U/L (15-37) Alanine Aminotransferase (ALT) 18 U/L (12-78) Alkaline Phosphatase 81 U/L (46-116) Total Creatine Kinase 52 U/L (26-308) Troponin I 0.030 ng/mL (0.000-0.056) Pro-B-Type Natriuretic Peptide 9782 pg/mL (0-125) H Total Protein 9.3 G/DL (6.4-8.2) H Albumin 3.7 G/DL (3.4-5.0) Globulin 5.6 g/dL Albumin/Globulin Ratio 0.7 (1.0-2.7) L Digoxin Level 0.3 NG/ML (0.9-2.0) L Urine Color Yellow Urine Appearance Slightly cloudy Urine pH 6 (4.5-8.0) Urine Specific [place] 1.015 (1.005-1.035) Urine Protein 4+ (NEGATIVE) H Urine Glucose (UA) Negative (NEGATIVE) Urine Ketones Negative (NEGATIVE) Urine Occult Blood 1+ (NEGATIVE) H Urine Nitrite Negative (NEGATIVE) Urine Bilirubin 1+ (NEGATIVE) H Urine Ictotest Negative Urine Urobilinogen 4 MG/DL (0.0-1.0) H Urine Leukocyte Esterase 1+ (NEGATIVE) H Urine RBC 2-4 /HPF (0 - 2) H Urine WBC 2-4 /HPF (0 - 2) Urine Squamous Epithelial Cells Many /LPF (NONE/OCC) H Urine Amorphous Sediment Many /LPF (NONE) H Urine Bacteria Few /HPF (NONE) Arterial Blood pH 7.421 (7.350-7.450) Arterial Blood Partial Pressure CO2 34.8 mmHg (35.0-45.0) L Arterial Blood Partial Pressure O2 255.5 mmHg (75.0-100.0) H Arterial Blood HCO3 22.1 mmol/L (22.0-26.0) Arterial Blood Oxygen Saturation 98.9 % (92.0-98.0) H Arterial Blood Base Excess -1.9 Adonay Test Positive Microbiology Date/Time Source Procedure Growth Status 02/06/18 09:40 Nasal Nares Influenza Types A,B Antigen (YAZAN) - Final Complete Referrals: DANIELLE SIMONS (PCP) Miguel Garcia M.D. Feb 06, 2018 10:52
[2018-02-06 10:58] LABS: APPEARANCE,URINE SLIGHTLY CLOUDY; BILIRUBIN, URINE 1+ (NEGATIVE); GLUCOSE, URINE (UA) NEGATIVE (NEGATIVE); KETONES,URINE NEGATIVE (NEGATIVE); LEUKOCYTE ESTERASE ,URINE 1+ (NEGATIVE); NITRITE,URINE NEGATIVE (NEGATIVE); PH,URINE 6 (4.5-8.0); PROTEIN,URINE 4+ (NEGATIVE); UROBILINOGEN,URINE 4 MG/DL (0.0-1.0)
[2018-02-06 11:01] LABS: COLOR,URINE YELLOW
[2018-02-06] MEDS ORDERED: DIGOXIN125 MCG ORAL (11:01)
--- NOTE | 2018-02-06 11:01 | Diagnostic Imaging Report ---
Indication: Dyspnea Comparison: 03/18/2016 A single view chest radiograph was obtained. Findings: Mild pulmonary edema interstitial edema present with cardiomegaly. Pacemaker noted on the left. Bones are osteopenic. IMPRESSION: Congestive heart failure
[2018-02-06] MEDS ORDERED: GABAPENTIN300 MG ORAL (11:03)
[2018-02-06] MEDS ORDERED: MELATONIN5 M4 ORAL (11:03)
[2018-02-06] MEDS ORDERED: ARTIFICIAL TEAR15 ML BOTH EYES (11:19)
[2018-02-06] MEDS ORDERED: MISOPROSTOL100 MCG PO (11:19)
[2018-02-06] MEDS ORDERED: FUROSEMIDE40 MG ORAL (11:19)
[2018-02-06] MEDS ORDERED: LOPERAMIDE2 MG PO (11:19)
[2018-02-06] MEDS ORDERED: LOSARTAN POTASS25 MG ORAL (11:19)
[2018-02-06] MEDS ORDERED: ASPIRIN81 MG ORAL (11:19)
[2018-02-06] MEDS ORDERED: AMLODIPINE BES2.5 MG ORAL (11:19)
[2018-02-06] MEDS ORDERED: MAPAP500 M2 PO (11:19)
[2018-02-06] MEDS ORDERED: CARVEDILOL6.25 MG ORAL (11:19)
[2018-02-06] MEDS ORDERED: PANTOPRAZOLE SO40 MG ORAL (11:19)
--- NOTE | 2018-02-06 13:11 | Consultation ---
Consult Note Consult Note 82 year old female with recent pneumonia presents with increasing shortness of breath. Patient with diagnosis of chf on cxr. Patient also with elevated WBC and unclear as to underlying pneumonia. Patient with noted hypoxemia. I was called to assist and recommend further. Patient is a fair historian. care discussed with the primary MD and ER notes reviewed. no distress. no ill contacts. no recent fevers noted PMH AICD CHF gastric cancer atrial fibrillation dementia hypertension MEDS and ALLERGIES: noted' ROS: unreliable PHYSICAL Sp02 EP Interpretation: reviewed, normal General Appearance: normal inspection, well appearing, no apparent distress, Head: normocephalic, atraumatic Neck: normal inspection, full range of motion, supple, no meningismus, carotid 2+ Respiratory: decreased breath sounds, some crackles and rhonchi Cardiovascular #1: regular rate, rhythm, no murmur without MRG Gastrointestinal: non tender, soft, non-distended, no guarding, no rebound Musculoskeletal: no CC,bilateral pedal edema +1 Neurologic: weak overall Laboratory Tests Test 02/06/18 10:00 02/06/18 10:20 02/06/18 10:28 02/06/18 12:25 White Blood Count 12.0 K/UL (4.8-10.8) H Red Blood Count 3.92 M/UL (4.20-5.40) L Hemoglobin 11.4 G/DL (12.0-16.0) L Hematocrit 36.0 % (37.0-47.0) L Mean Corpuscular Volume 92 FL (80-99) Mean Corpuscular Hemoglobin 29.1 PG (27.0-31.0) Mean Corpuscular Hemoglobin Concent 31.7 G/DL (32.0-36.0) L Red Cell Distribution Width 15.1 % (11.6-14.8) H Platelet Count 91 K/UL (150-450) L Mean Platelet Volume 14.3 FL (6.5-10.1) H Neutrophils (%) (Auto) % (45.0-75.0) Lymphocytes (%) (Auto) % (20.0-45.0) Monocytes (%) (Auto) % (1.0-10.0) Eosinophils (%) (Auto) % (0.0-3.0) Basophils (%) (Auto) % (0.0-2.0) Differential Total Cells Counted 100 Neutrophils % (Manual) 84 % (45-75) H Lymphocytes % (Manual) 12 % (20-45) L Monocytes % (Manual) 4 % (1-10) Eosinophils % (Manual) 0 % (0-3) Basophils % (Manual) 0 % (0-2) Band Neutrophils 0 % (0-8) Platelet Estimate Decreased L Platelet Morphology Normal Hypochromasia 1+ Prothrombin Time 13.8 SEC (9.30-11.50) H Prothromb Time International Ratio 1.3 (0.9-1.1) H Activated Partial Thromboplast Time 24 SEC (23-33) Sodium Level 139 MMOL/L (136-145) Potassium Level 4.1 MMOL/L (3.5-5.1) Chloride Level 104 MMOL/L (98-107) Carbon Dioxide Level 19 MMOL/L (21-32) L Anion Gap 16 mmol/L (5-15) H Blood Urea Nitrogen 26 mg/dL (7-18) H Creatinine 1.2 MG/DL (0.55-1.30) Estimat Glomerular Filtration Rate mL/min (>60) Glucose Level 186 MG/DL (74-106) H Lactic Acid Level 3.70 mmol/L (0.66-2.22) H Pending Calcium Level 9.6 MG/DL (8.5-10.1) Total Bilirubin 3.2 MG/DL (0.2-1.0) H Direct Bilirubin 0.8 MG/DL (0.0-0.3) H Aspartate Amino Transf (AST/SGOT) 29 U/L (15-37) Alanine Aminotransferase (ALT/SGPT) 18 U/L (12-78) Alkaline Phosphatase 81 U/L (46-116) Total Creatine Kinase 52 U/L (26-308) Troponin I 0.030 ng/mL (0.000-0.056) Pro-B-Type Natriuretic Peptide 9782 pg/mL (0-125) H Total Protein 9.3 G/DL (6.4-8.2) H Albumin 3.7 G/DL (3.4-5.0) Globulin 5.6 g/dL Albumin/Globulin Ratio 0.7 (1.0-2.7) L Digoxin Level 0.3 NG/ML (0.9-2.0) L Urine Color Yellow Urine Appearance Slightly cloudy Urine pH 6 (4.5-8.0) Urine Specific [place] 1.015 (1.005-1.035) Urine Protein 4+ (NEGATIVE) H Urine Glucose (UA) Negative (NEGATIVE) Urine Ketones Negative (NEGATIVE) Urine Occult Blood 1+ (NEGATIVE) H Urine Nitrite Negative (NEGATIVE) Urine Bilirubin 1+ (NEGATIVE) H Urine Ictotest Negative Urine Urobilinogen 4 MG/DL (0.0-1.0) H Urine Leukocyte Esterase 1+ (NEGATIVE) H Urine RBC 2-4 /HPF (0 - 2) H Urine WBC 2-4 /HPF (0 - 2) Urine Squamous Epithelial Cells Many /LPF (NONE/OCC) H Urine Amorphous Sediment Many /LPF (NONE) H Urine Bacteria Few /HPF (NONE) Arterial Blood pH 7.421 (7.350-7.450) Arterial Blood Partial Pressure CO2 34.8 mmHg (35.0-45.0) L Arterial Blood Partial Pressure O2 255.5 mmHg (75.0-100.0) H Arterial Blood HCO3 22.1 mmol/L (22.0-26.0) Arterial Blood Oxygen Saturation 98.9 % (92.0-98.0) H Arterial Blood Base Excess -1.9 Adonay Test Positive IMPRESSION possible PNA CHF shortness of breath hypoxemia leukocytosis ho atrial fibrillation, paroxysmal PLAN empiric antibiotics cardiac management oxygen monitor fluid status follow up imaging supportive care DVT prophylaxis impression, plan, and exam edited and reviewed in detail care discussed with CANDIDO ARNETT Feb 06, 2018 13:11
[2018-02-06] MEDS: NovoLOG Insulin Flexpen SUBQ SCH ×2 (16:38→21:00)
[2018-02-06] MEDS: Piperacillin/Tazobactam 3.375 GM in NS 110 ML IVPB SCH (17:14)
[2018-02-06] MEDS: Docusate 100mg cap ORAL SCH (17:15)
[2018-02-06] MEDS: metFORMIN 500mg tab ORAL SCH (17:15)
[2018-02-06] MEDS: Sucralfate 1gm tab ORAL SCH (17:15)
[2018-02-06] MEDS: Carvedilol 6.25mg Tab ORAL SCH (22:10)
[2018-02-07] VITALS: BP 124/89
[2018-02-07] MEDS: Piperacillin/Tazobactam 3.375 GM in NS 110 ML IVPB SCH (02:53)
[2018-02-07 04:00] VITALS: BP 130/73
--- NOTE | 2018-02-07 05:15 | Consultation ---
DATE OF CONSULTATION: 02/06/2018 CARDIOLOGY CONSULTATION CONSULTING PHYSICIAN: Miguel Mason M.D. REQUESTING PHYSICIAN: Palomo Frankel M.D. REASON: Congestive heart failure in the setting of cardiomyopathy with defibrillator. HISTORY OF PRESENT ILLNESS: This is an 82-year-old female with a known history of ischemic and hypertensive cardiomyopathy. Her most recent echocardiograms have revealed ejection fractions less than 30%. She has a cardiac defibrillator and a history of ventricular arrhythmias as well. The patient has been in and out of the hospital for the past several months. While she has had chronic heart failure, she was relatively stable until visiting her son in [place] and developed significant heart failure symptoms presumed to be due to the high altitude she believes. She ultimately was able to leave the hospital and return here home to [place], but noted over the past day or two has been increasingly short of breath again, coming into the emergency room early this morning with clinical signs of acute congestive heart failure. She denies shocks from her defibrillator device or chest pain. She has not had any fevers or chills, but has had some cough and notes recent pneumonia. PAST MEDICAL HISTORY: Type 2 diabetes mellitus, chronic kidney disease, history of gastric cancer with resection, systolic congestive heart failure, cardiac defibrillator of [employer] type, paroxysmal atrial fibrillation, hypertensive heart disease, coronary atherosclerosis, osteoarthritis, and degenerative disk disease. ALLERGIES: Codeine. SOCIAL HISTORY: Nonsmoker. No alcohol or substance abuse. FAMILY HISTORY: Noncontributory. MEDICATIONS: Prior to admission, reviewed and reconciled. REVIEW OF SYSTEMS: No fevers or chills. No history of retinopathy. She has some hearing loss. There is no history of asthma or blood clots in the legs. She has had prior gastric cancer with resection and last year had an endoscopy that was unremarkable. 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 She is on oral diabetic therapy. There is no history of seizure or stroke. Her most recent echocardiogram as noted above revealed ejection fraction of less than 30% with global hypokinesis. The defibrillator was interrogated about six months ago and noted to be functioning appropriately. She has a history of both atrial and ventricular arrhythmias. PHYSICAL EXAMINATION: GENERAL: The patient is well developed and in no acute distress. VITAL SIGNS: Blood pressure 116/79, pulse 91, respirations 18, afebrile, and oxygen saturation on 3 liters 99%. HEENT: Temporal wasting. Pale conjunctivae. Anicteric sclerae. Oropharynx clear. NECK: Supple. Jugular venous pressure elevated. LUNGS: With bilateral breath sounds. Scattered rales. CARDIAC: Regular rhythm and rate. Normal S1, paradoxically split S2. A 1/6 systolic murmur at apex. ABDOMEN: Soft, nontender. EXTREMITIES: With 1+ bilateral pitting edema. NEUROLOGIC: Nonfocal. LABORATORY AND DIAGNOSTIC DATA: EKGs reviewed and reveals atrial fibrillation with rapid ventricular response and nonspecific ST-T wave changes. Chest x-ray, bilateral interstitial edema and possible infiltrates. White count 12 and hemoglobin 11.4. BUN 26, creatinine 1.2. Potassium 4.1, bicarbonate 19. Lactic acid is 3.7. A1c is 6.3. IMPRESSION: 1. Acute on chronic systolic congestive heart failure. 2. Paroxysmal atrial fibrillation with rapid ventricular response. 3. History of ventricular arrhythmias with cardiac defibrillator. 4. Hypertensive and ischemic cardiomyopathy. 5. Lactic acidosis. 6. Probable pneumonia, healthcare acquired. 7. Type 2 diabetes mellitus. PLAN: 1. Cardiac monitoring. 2. Beta-gem for rate control. 3. Diuresis. 4. Continue digitalis. The patient has not tolerated amiodarone in the past and refuses this drug. 5. Consider resumption of anticoagulation, which she has been on in the past for cardioembolic prophylaxis. 6. Diuresis with intravenous loop diuretic and Aldactone for potassium-sparing effect. 7. Maximize anti-failure regimen. Miguel Mason M.D. DR: YOLETTE JOB#: [id number] CC:
[2018-02-07] MEDS: NovoLOG Insulin Flexpen SUBQ SCH ×4 (05:38→21:48)
--- NOTE | 2018-02-07 07:27 | Pulmonology Progress Note ---
Assessment/Plan Assessment/Plan MPRESSION possible PNA CHF shortness of breath hypoxemia leukocytosis ho atrial fibrillation, paroxysmal respiratory failure PLAN empiric antibiotics pending cultures cardiac management oxygen monitor fluid status and diurese follow up imaging for improvement supportive care follow up ABG BIPAP PRN DVT prophylaxis impression, plan, and exam edited and reviewed in detail care discussed with RN Subjective ROS Limited/Unobtainable: Yes Allergies: Coded Allergies: CODEINE (Verified Allergy, Unknown, 09/25/10) Subjective overnight events noted on diuretics anti emetics ordered Objective Last 24 Hour Vital Signs Date Time Temp Pulse Resp B/P (MAP) Pulse Ox O2 Delivery O2 Flow Rate FiO2 02/07/18 04:00 97.8 98 19 130/73 99 Nasal Cannula 3.0 97.8 02/07/18 03:34 89 02/07/18 00:00 103 02/07/18 00:00 97.9 90 19 124/89 99 Nasal Cannula 3.0 97.9 02/06/18 22:10 88 128/77 02/06/18 21:00 15.0 35 02/06/18 20:00 105 02/06/18 20:00 98.0 88 20 128/77 99 Nasal Cannula 3.0 98.0 02/06/18 19:15 99 Nasal Cannula 3.0 35 02/06/18 19:15 Nasal Cannula 3.0 32 02/06/18 16:00 96 02/06/18 16:00 97.9 91 20 116/79 99 Nasal Cannula 3.0 97.9 02/06/18 15:20 88 18 95 02/06/18 14:00 97.8 89 26 132/69 96 Nasal Cannula 3.0 97.8 02/06/18 13:25 99.7 87 19 131/82 98 Bi-pap 15.0 35 99.7 02/06/18 13:25 99.7 87 19 131/82 98 Bi-pap 15.0 35 214.0 02/06/18 13:09 85 18 96 02/06/18 13:09 Nasal Cannula 2.0 32 02/06/18 13:09 96 Nasal Cannula 3.0 32 02/06/18 12:30 89 20 135/90 99 Bi-pap 15.0 35 02/06/18 11:02 99.7 02/06/18 10:39 90 20 98 Full Face 15.0 35 02/06/18 10:33 15.0 35 02/06/18 10:32 101.1 02/06/18 10:26 101.1 94 23 130/92 98 Bi-pap 15.0 50 101.1 02/06/18 09:58 94 24 99 Bi-pap 15.0 50 02/06/18 09:45 122 30 99 Bi-pap 15.0 50 02/06/18 09:45 122 30 Bi-pap 15.0 50 02/06/18 09:45 50 02/06/18 09:44 176 156/125 02/06/18 09:43 176 156/125 02/06/18 09:43 100 24 99 Full Face 15.0 50 02/06/18 09:25 15.0 50 02/06/18 09:24 97.3 44 156/125 89 Room Air 97.3 02/06/18 09:24 176 44 Room Air 02/06/18 09:14 97.3 176 44 156/125 89 Room Air 97.3 Intake and Output 02/06/18 02/07/18 19:00 07:00 Intake Total 612 ml 150 ml Output Total 100 ml Balance 512 ml 150 ml Intake Oral 330 ml 150 ml IV Total 282 ml Output Urine Total 100 ml # Voids 1 4 # Bowel Movements 3 Objective WDWN NAD currently on NC oxygen reduced breath sounds bilaterally with basilar crackles [id number] without MRG NABS nontender no HSM no CC some edema nonfocal and confused skin exam reviewed Microbiology Date/Time Source Procedure Growth Status 02/06/18 09:40 Nasal Nares Influenza Types A,B Antigen (YAZAN) - Final Complete 02/07/18 01:10 Stool Clostridium difficile Toxin Assay - Final Complete Laboratory Tests 02/06/18 10:00: White Blood Count 12.0H, Red Blood Count 3.92L, Hemoglobin 11.4L, Hematocrit 36.0L, Mean Corpuscular Volume 92, Mean Corpuscular Hemoglobin 29.1, Mean Corpuscular Hemoglobin Concent 31.7L, Red Cell Distribution Width 15.1H, Platelet Count 91L, Mean Platelet Volume 14.3H, Neutrophils (%) (Auto) , Lymphocytes (%) (Auto) , Monocytes (%) (Auto) , Eosinophils (%) (Auto) , Basophils (%) (Auto) , Differential Total Cells Counted 100, Neutrophils % ( Manual) 84H, Lymphocytes % (Manual) 12L, Monocytes % (Manual) 4, Eosinophils % ( Manual) 0, Basophils % (Manual) 0, Band Neutrophils 0, Platelet Estimate DecreasedL, Platelet Morphology Normal, Hypochromasia 1+, Prothrombin Time 13.8H , Prothromb Time International Ratio 1.3H, Activated Partial Thromboplast Time 24, Sodium Level 139, Potassium Level 4.1, Chloride Level 104, Carbon Dioxide Level 19L, Anion Gap 16H, Blood Urea Nitrogen 26H, Creatinine 1.2, Estimat Glomerular Filtration Rate , Glucose Level 186H, Hemoglobin A1c 6.3H, Lactic Acid Level 3.70H, Calcium Level 9.6, Total Bilirubin 3.2H, Direct Bilirubin 0.8H , Aspartate Amino Transf (AST/SGOT) 29, Alanine Aminotransferase (ALT/SGPT) 18, Alkaline Phosphatase 81, Total Creatine Kinase 52, Troponin I 0.030, Pro-B-Type Natriuretic Peptide 9782H, Total Protein 9.3H, Albumin 3.7, Globulin 5.6, Albumin/Globulin Ratio 0.7L, Digoxin Level 0.3L 02/06/18 10:20: Urine Color Yellow, Urine Appearance Slightly cloudy, Urine pH 6, Urine Specific [place] 1.015, Urine Protein 4+H, Urine Glucose (UA) Negative, Urine Ketones Negative, Urine Occult Blood 1+H, Urine Nitrite Negative, Urine Bilirubin 1+H, Urine Ictotest Negative, Urine Urobilinogen 4H, Urine Leukocyte Esterase 1+H, Urine RBC 2-4H, Urine WBC 2-4, Urine Squamous Epithelial Cells ManyH, Urine Amorphous Sediment ManyH, Urine Bacteria Few 02/06/18 10:28: Arterial Blood pH 7.421, Arterial Blood Partial Pressure CO2 34.8L, Arterial Blood Partial Pressure O2 255.5H, Arterial Blood HCO3 22.1, Arterial Blood Oxygen Saturation 98.9H, Arterial Blood Base Excess -1.9, Adonay Test Positive 02/06/18 12:25: Lactic Acid Level 1.50 Current Medications Medications (Trade) Dose Ordered Sig/Satnam Route PRN Reason Start Time Stop Time Status Last Admin Dose Admin Aspirin (ASA) 81 mg DAILY ORAL 02/07/18 09:00 03/09/18 08:59 Carvedilol (Coreg) 6.25 mg EVERY 12 HOURS ORAL 02/06/18 21:00 03/08/18 20:59 02/06/18 22:10 Dextrose (Dextrose 50%) 25 ml STAT PRN IV Hypoglycemia 02/06/18 13:00 03/08/18 12:59 Dextrose (Dextrose 50%) 50 ml STAT PRN IV Hypoglycemia 02/06/18 13:00 03/08/18 12:59 Digoxin (Lanoxin) 0.125 mg DAILY ORAL 02/07/18 09:00 03/09/18 08:59 Docusate Sodium (Colace) 100 mg BID ORAL 02/06/18 18:00 03/08/18 17:59 02/06/18 17:15 Furosemide (Lasix) 40 mg EVERY 12 HOURS IV 02/07/18 04:15 03/09/18 04:14 02/07/18 05:35 Insulin Aspart (NovoLOG) BEFORE MEALS AND HS SUBQ 02/06/18 16:30 03/08/18 16:29 02/07/18 05:38 Losartan Potassium (Cozaar) 50 mg EVERY 12 HOURS ORAL 02/07/18 09:00 03/09/18 08:59 Metformin HCl (Glucophage) 500 mg BID ORAL 02/06/18 18:00 03/08/18 17:59 02/06/18 17:15 Ondansetron HCl (Zofran) 4 mg Q6H PRN IVP Nausea & Vomiting 02/07/18 06:15 03/09/18 06:14 Piperacillin Sod/ Tazobactam Sod 3.375 gm/Sodium Chloride 110 ml @ 27.5 mls/hr Q8H IVPB 02/06/18 18:00 02/13/18 17:59 02/07/18 02:53 Spironolactone (Aldactone) 25 mg DAILY ORAL 02/07/18 09:00 03/09/18 08:59 Sucralfate (Carafate) 1 gm BID ORAL 02/06/18 18:00 03/08/18 17:59 02/06/18 17:15 Vancomycin HCl (Vanco rx to dose) 1 ea DAILY PRN MISC Per rx protocol 02/06/18 13:00 03/08/18 12:59 Vancomycin HCl 1 gm/Dextrose 275 ml @ 183.708 mls/hr Q24H IVPB 02/07/18 09:00 02/12/18 08:59 CANDIDO SEBASTIAN Feb 07, 2018 07:27
[2018-02-07 08:00] VITALS: BP 127/73
[2018-02-07] MEDS ORDERED: Spironolactone 25mg tab ORAL SCH (09:00)
[2018-02-07] MEDS ORDERED: Furosemide 40mg tab ORAL SCH (09:00)
[2018-02-07] MEDS: Docusate 100mg cap ORAL SCH ×2 (09:00→17:53)
[2018-02-07] MEDS ORDERED: Digoxin 0.125mg tab ORAL SCH (09:00)
[2018-02-07] MEDS ORDERED: Vancomycin 1gm/D5W 275ml IVPB SCH ×2 (09:00)
[2018-02-07] MEDS ORDERED: Aspirin Baby 81mg ORAL SCH (09:00)
[2018-02-07] MEDS ORDERED: Losartan 50mg tab ORAL SCH (09:00)
[2018-02-07] MEDS: Sucralfate 1gm tab ORAL SCH ×2 (09:16→17:57)
[2018-02-07] MEDS: metFORMIN 500mg tab ORAL SCH ×2 (09:16→17:57)
[2018-02-07] MEDS: Carvedilol 6.25mg Tab ORAL SCH ×2 (09:19→21:50)
[2018-02-07 12:00] VITALS: BP 102/63
[2018-02-07] MEDS: Piperacillin/Tazobactam 3.375 GM in D5W 110 ML IVPB SCH ×2 (12:27→17:57)
[2018-02-07 16:00] VITALS: BP_SYST 110; BP_SYST 122; BP_DIAS 65; BP_DIAS 86
--- NOTE | 2018-02-07 18:30 | History and Physical Report ---
DATE OF ADMISSION: 02/07/2018 CHIEF COMPLAINT: Shortness of breath. HISTORY OF PRESENT ILLNESS: The patient is a pleasant 82-year-old female. She has a history of ischemic cardiomyopathy, hypertension, conduction system disease, status post defibrillator. She has a history of paroxysmal atrial fibrillation, anxiety, hypertension, and osteoarthritis. She was brought in by family members with complaints of shortness of breath. Over the last six months, she has been in [place] where she has had multiple admissions. On several occasions there, she was discharged to a [facility] facility. She only recently returned back to [place]. Over the last week couple of weeks, she has had worsening cough, congestion, and sputum. Family brought her to the emergency room for further evaluation. On evaluation there, the patient was hypoxic and short of breath. She was placed on BiPAP. She had an x-ray evidence of pneumonia. The patient has been pancultured and broad-spectrum antibiotics have been instituted and the patient is now admitted for further evaluation and care. PAST MEDICAL HISTORY: As above. PAST SURGICAL HISTORY: Includes defibrillator. CURRENT MEDICATIONS: Reconciled and reviewed. ALLERGIES: Codeine. FAMILY HISTORY: Noncontributory. SOCIAL HISTORY: Negative for tobacco, ethanol, or drugs. REVIEW OF SYSTEMS: GENERAL: Positive fevers and chills. No night sweats. HEENT: No headaches or visual changes. CARDIOPULMONARY: No chest pain. Positive shortness of breath, cough, and congestion. GASTROINTESTINAL: No nausea or vomiting. GENITOURINARY: No urgency or frequency. MUSCULOSKELETAL: No joint pain or swelling. NEUROLOGIC: No evidence of seizures. PHYSICAL EXAMINATION: VITAL SIGNS: Temperature 98 degrees, blood pressure 130/73, pulse 98, and respirations 20. GENERAL: The patient is a well-developed female, in no apparent distress. HEART: Regular rate and rhythm. LUNGS: Significant for rales, left greater than right. ABDOMEN: Soft, nontender, and nondistended. EXTREMITIES: No clubbing, cyanosis, or edema. LABORATORY DATA: White count was 12 and hemoglobin 11. Sodium 139, potassium 4.1, BUN 29, and creatinine was 1.2. A1c was 6.3 and lactic acid was 3.7. Natriuretic peptide level was 10,000. UA showed 2 to 4 wbc's. Chest x-ray showed congestive heart failure versus bilateral infiltrates. ASSESSMENT: 1. This is a pleasant female admitted with complaints of shortness of breath secondary to pneumonia, congestive heart failure exacerbation, possible community-acquired pneumonia, plus congestive heart failure exacerbation. 2. History of hypertension. 3. History of osteoarthritis. 4. Diabetes. PLAN: 1. Cautious diuresis. 2. Antibiotic therapy. 3. Monitor chest x-ray. 4. Continue outpatient diabetic regimen. 5. Wean BiPAP. 6. Pulmonary and Infectious Diseases consultations to be obtained. Palomo Frankel M.D. DR: BETTY JOB#: [id number] CC:
[2018-02-07] MEDS ORDERED: Loperamide 2mg cap ORAL ONE (19:30)
[2018-02-07 20:00] VITALS: BP 99/51
[2018-02-07] MEDS: Losartan 50mg tab ORAL SCH (21:49)
[2018-02-08] VITALS: BP 99/51
--- NOTE | 2018-02-08 01:30 | Consultation ---
DATE OF CONSULTATION: 02/07/2018 INFECTIOUS DISEASES CONSULTATION This consult is for coverage of Dr. Gunter. CONSULTING PHYSICIAN: Tomas Mendez M.D. PRIMARY ATTENDING PHYSICIAN: Palomo Frankel M.D. REASON FOR CONSULTATION: Pneumonia. HISTORY OF PRESENT ILLNESS: The patient is an 82-year-old female admitted yesterday from home because of shortness of breath. She has history of recent hospitalization in [place], had leukocytosis and has history of heart failure. PAST MEDICAL HISTORY: Significant for systolic CHF, paroxysmal atrial fibrillation, gastric cancer, dementia, hypertension, status post AICD placement. ALLERGIES: Allergic to codeine. MEDICATIONS: Getting Zosyn, aspirin, digoxin, vancomycin, spironolactone, losartan, , Lasix, carvedilol, metformin, Colace, sucralfate, and insulin. SOCIAL HISTORY: Single. Denies alcohol, drug abuse, or smoking. Has a child and grandchild. REVIEW OF SYSTEMS: Has shortness of breath, coughing, had fever yesterday, cough is not productive. No nausea. No vomiting. No diarrhea. No dysuria. PHYSICAL EXAMINATION: VITAL SIGNS: Temperature 97.7, pulse 95, and blood pressure 127/73. GENERAL APPEARANCE: No acute distress. HEENT: Head and neck, pink conjunctiva. No oral lesions. HEART: Normal rate. Has left-sided defibrillator. LUNGS: Clear. ABDOMEN: Soft and nontender. EXTREMITIES: Mild pre-ankle edema. NEUROLOGIC: She is awake, alert, and oriented. LABORATORY AND DIAGNOSTIC DATA: Sodium 139, potassium 4.1, chloride 104, carbon dioxide 19, BUN 26, and creatinine 1.2. Lactic acid was 3.7, came down to 1.5. BNP is elevated 9782. WBC 12, hemoglobin 11.4, hematocrit 36, and platelets 91. Stool for C. difficile was negative. Influenza test was negative. Chest x-ray showed congestive heart failure. IMPRESSION: 1. Sepsis with fever and leukocytosis, seems to have pneumonia. 2. Acute on chronic systolic congestive heart failure. 3. Dementia. 4. Lactic acidosis that resolved. 5. Diabetes mellitus type 2. 6. Thrombocytopenia. RECOMMENDATION: We will continue with current antibiotic with vancomycin and Zosyn. We will follow up the cultures. At the end of my exam, I thank Dr. Palomo Frankel for involving me in the care of this patient. Tomas Mendez M.D. DR: Brigida JOB#: [id number] CC: SURAJ
[2018-02-08] MEDS ORDERED: Piperacillin/Tazobactam 3.375 GM in D5W 110 ML IVPB SCH (02:00)
[2018-02-08 04:00] VITALS: BP 99/61
[2018-02-08] MEDS: NovoLOG Insulin Flexpen SUBQ SCH ×4 (06:30→21:00)
[2018-02-08 07:14] LABS: HEMATOCRIT 28.4 % (37.0-47.0); HEMOGLOBIN 9.5 G/DL (12.0-16.0); MEAN CORPUSCULAR VOLUME 92 FL (80-99); PLATELET COUNT 69 K/UL (150-450); RED BLOOD COUNT 3.11 M/UL (4.20-5.40); WHITE BLOOD COUNT 6.8 K/UL (4.8-10.8)
[2018-02-08 07:29] LABS: ALANINE AMINOTRANSFERASE 23 U/L (12-78); ALBUMIN 2.8 G/DL (3.4-5.0); ALBUMIN/GLOBULIN RATIO 0.6 (1.0-2.7); ALKALINE PHOSPHATASE 53 U/L (46-116); ANION GAP 11 mmol/L (5-15); ASPARTATE AMINO TRANSFERASE 30 U/L (15-37); BILIRUBIN,TOTAL 1.8 MG/DL (0.2-1.0); BLOOD UREA NITROGEN 25 mg/dL (7-18); CALCIUM 8.4 MG/DL (8.5-10.1); CARBON DIOXIDE 24 MMOL/L (21-32); CHLORIDE 105 MMOL/L (98-107); CREATININE 1.2 MG/DL (0.55-1.30); POTASSIUM 3.6 MMOL/L (3.5-5.1); SODIUM 140 MMOL/L (136-145)
[2018-02-08 07:45] LABS: BILIRUBIN,DIRECT 0.5 MG/DL (0.0-0.3)
--- NOTE | 2018-02-08 07:45 | Progress Note ---
DATE: 02/07/2018 CARDIOLOGY PROGRESS NOTE SUBJECTIVE: The patient feels washed out from diuretic therapy. She has urinated all night. She has no chest pain and much less shortness of breath. Monitor, atrial fibrillation with ventricular pacing by demand. OBJECTIVE: VITAL SIGNS: Blood pressure 110/65, pulse 86, and respiratory rate 18. LUNGS: With few rales. CARDIAC: Irregularly irregular rhythm. Normal S1, paradoxically split S2. ABDOMEN: Soft. EXTREMITIES: With trace edema. LABORATORY DATA: No new labs. IMPRESSION: 1. Acute on chronic systolic congestive heart failure. 2. Paroxysmal atrial fibrillation with rapid ventricular response. 3. Lactic acidosis, resolved. 4. Hypertensive and ischemic cardiomyopathy. 5. Paroxysmal atrial and ventricular arrhythmias. 6. Cardiac defibrillator. 7. History of gastric cancer, status post resection and in remission. PLAN: 1. Plan of care reviewed. 2. Adjust diuretic dose. 3. Continue and to maximize anti-failure regimen, mobilize. 4. Reassess risk and benefits of cardioembolic prophylaxis with rivaroxaban versus continued anti-platelet therapy. Miguel Mason M.D. DR: MILEY JOB#: [id number] CC:
--- NOTE | 2018-02-08 07:58 | General Progress Note ---
Assessment/Plan Problem List: (1) Dyspepsia ICD Codes: K30 - Dyspepsia SNOMED: 847451418 (2) Chest pain ICD Codes: R07.9 - Chest pain, unspecified SNOMED: 68682984 (3) ICD (implantable cardiac defibrillator) discharge ICD Codes: Z03.89 - ICD (implantable cardiac defibrillator) discharge SNOMED: 139230042 (4) CHF exacerbation ICD Codes: I50.9 - CHF exacerbation SNOMED: 74611189 (5) Pneumonia ICD Codes: J18.9 - Pneumonia, unspecified organism SNOMED: 171118160 Qualifiers: Qualified Codes: J18.1 - Lobar pneumonia, unspecified organism Status: stable, progressing Assessment/Plan o2 resp care cough rx abx diuresis abd chapito Subjective ROS Limited/Unobtainable: No Constitutional: Reports: malaise, weakness HEENT: Reports: no symptoms Cardiovascular: Reports: no symptoms Respiratory: Reports: cough Gastrointestinal/Abdominal: Reports: no symptoms Genitourinary: Reports: no symptoms Neurologic/Psychiatric: Reports: emotional problems Endocrine: Reports: no symptoms Hematologic/Lymphatic: Reports: no symptoms Allergies: Coded Allergies: CODEINE (Verified Allergy, Unknown, 09/25/10) All Systems: reviewed and negative except above Subjective c/o cough with mucous. decreased sob. labs noted. no chest pain . Objective Last 24 Hour Vital Signs Date Time Temp Pulse Resp B/P (MAP) Pulse Ox O2 Delivery O2 Flow Rate FiO2 02/08/18 04:00 80 02/08/18 04:00 98.0 90 20 99/61 98 Room Air 98.0 02/08/18 00:00 83 02/08/18 00:00 98.2 89 20 99/51 96 Room Air 98.2 02/07/18 21:50 86 110/65 02/07/18 21:49 110/65 02/07/18 20:00 98.2 89 20 99/51 96 Room Air 98.2 02/07/18 20:00 88 02/07/18 19:59 94 Room Air 21 02/07/18 19:59 Room Air 21 02/07/18 16:33 86 02/07/18 16:00 97.5 87 18 110/65 96 Room Air 97.5 02/07/18 13:44 94 Room Air 21 02/07/18 13:42 Room Air 21 02/07/18 12:00 98.0 87 18 102/63 100 Nasal Cannula 3.0 98.0 02/07/18 12:00 98 02/07/18 09:19 95 127/73 02/07/18 09:16 127/73 02/07/18 09:16 95 02/07/18 09:00 3.0 02/07/18 08:00 97.7 95 18 127/73 99 Nasal Cannula 3.0 97.7 02/07/18 08:00 97 Intake and Output 02/07/18 02/08/18 19:00 07:00 Intake Total 990.000 ml Output Total 650 ml Balance 340.000 ml Intake Oral 660 ml IV Total 330.000 ml Output Urine Total 650 ml # Voids 1 # Bowel Movements 5 1 Laboratory Tests 02/08/18 06:25: White Blood Count 6.8, Red Blood Count 3.11L, Hemoglobin 9.5L, Hematocrit 28.4L , Mean Corpuscular Volume 92, Mean Corpuscular Hemoglobin 30.7, Mean Corpuscular Hemoglobin Concent 33.5, Red Cell Distribution Width 15.0H, Platelet Count 69L, Mean Platelet Volume 12.7H, Neutrophils (%) (Auto) , Lymphocytes (%) (Auto) , Monocytes (%) (Auto) , Eosinophils (%) (Auto) , Basophils (%) (Auto) , Neutrophils % (Manual) [Pending], Lymphocytes % (Manual) [Pending], Platelet Estimate [Pending], Platelet Morphology [Pending], Sodium Level 140, Potassium Level 3.6, Chloride Level 105, Carbon Dioxide Level 24, Anion Gap 11, Blood Urea Nitrogen 25H, Creatinine 1.2, Estimat Glomerular Filtration Rate , Glucose Level 108H, Calcium Level 8.4L, Magnesium Level 1.5L, Total Bilirubin 1.8H, Direct Bilirubin 0.5H, Aspartate Amino Transf (AST/SGOT) 30, Alanine Aminotransferase (ALT/SGPT) 23, Alkaline Phosphatase 53, Pro-B-Type Natriuretic Peptide 6158H, Total Protein 7.5, Albumin 2.8L, Globulin 4.7, Albumin/Globulin Ratio 0.6L Height (Feet): 5 Height (Inches): 6.00 Weight (Pounds): 141 General Appearance: WD/WN, alert, thin Neck: supple Cardiovascular: normal rate, regular rhythm Respiratory/Chest: chest wall non-tender, rhonchi - left Abdomen: normal bowel sounds, non tender, soft, no organomegaly Edema: trace edema Neurologic: trim machine adjuster II-XII grossly normal, no motor/sensory deficits, alert, oriented x 3, responsive DANIELLE SIMONS Feb 08, 2018 07:58
[2018-02-08 08:00] VITALS: BP 107/72
[2018-02-08] MEDS ORDERED: Guaifenesin/DM 10ml syrup ORAL PRN (08:00)
--- NOTE | 2018-02-08 08:28 | Pulmonology Progress Note ---
Assessment/Plan Assessment/Plan MPRESSION possible PNA CHF shortness of breath hypoxemia leukocytosis ho atrial fibrillation, paroxysmal respiratory failure PLAN empiric antibiotics - to po for now cardiac management with improvement oxygen monitor fluid status and diurese follow up imaging for improvement supportive care follow up ABG BIPAP may dc recheck cxr DVT prophylaxis impression, plan, and exam edited and reviewed in detail care discussed with RN Subjective Allergies: Coded Allergies: CODEINE (Verified Allergy, Unknown, 09/25/10) Subjective overnight events noted on diuretics much improved dry cough Objective Last 24 Hour Vital Signs Date Time Temp Pulse Resp B/P (MAP) Pulse Ox O2 Delivery O2 Flow Rate FiO2 02/08/18 04:00 80 02/08/18 04:00 98.0 90 20 99/61 98 Room Air 98.0 02/08/18 00:00 83 02/08/18 00:00 98.2 89 20 99/51 96 Room Air 98.2 02/07/18 21:50 86 110/65 02/07/18 21:49 110/65 02/07/18 20:00 98.2 89 20 99/51 96 Room Air 98.2 02/07/18 20:00 88 02/07/18 19:59 94 Room Air 21 02/07/18 19:59 Room Air 21 02/07/18 16:33 86 02/07/18 16:00 97.5 87 18 110/65 96 Room Air 97.5 02/07/18 13:44 94 Room Air 21 02/07/18 13:42 Room Air 21 02/07/18 12:00 98.0 87 18 102/63 100 Nasal Cannula 3.0 98.0 02/07/18 12:00 98 02/07/18 09:19 95 127/73 02/07/18 09:16 127/73 02/07/18 09:16 95 02/07/18 09:00 3.0 Intake and Output 02/07/18 02/08/18 19:00 07:00 Intake Total 990.000 ml Output Total 650 ml Balance 340.000 ml Intake Oral 660 ml IV Total 330.000 ml Output Urine Total 650 ml # Voids 1 # Bowel Movements 5 1 Objective WDWN NAD currently on NC oxygen reduced breath sounds bilaterally without rhonchi or wheeze [id number] without MRG NABS nontender no HSM no CC minimal edema nonfocal and alert Microbiology Date/Time Source Procedure Growth Status 02/06/18 10:00 Blood Blood Culture - Preliminary NO GROWTH AFTER 24 HOURS Resulted 02/06/18 09:50 Blood Blood Culture - Preliminary NO GROWTH AFTER 24 HOURS Resulted 02/06/18 09:40 Nasal Nares Influenza Types A,B Antigen (YAZAN) - Final Complete 02/07/18 01:10 Stool Clostridium difficile Toxin Assay - Final Complete Laboratory Tests 02/08/18 06:25: White Blood Count 6.8, Red Blood Count 3.11L, Hemoglobin 9.5L, Hematocrit 28.4L , Mean Corpuscular Volume 92, Mean Corpuscular Hemoglobin 30.7, Mean Corpuscular Hemoglobin Concent 33.5, Red Cell Distribution Width 15.0H, Platelet Count 69L, Mean Platelet Volume 12.7H, Neutrophils (%) (Auto) , Lymphocytes (%) (Auto) , Monocytes (%) (Auto) , Eosinophils (%) (Auto) , Basophils (%) (Auto) , Neutrophils % (Manual) [Pending], Lymphocytes % (Manual) [Pending], Platelet Estimate [Pending], Platelet Morphology [Pending], Sodium Level 140, Potassium Level 3.6, Chloride Level 105, Carbon Dioxide Level 24, Anion Gap 11, Blood Urea Nitrogen 25H, Creatinine 1.2, Estimat Glomerular Filtration Rate , Glucose Level 108H, Calcium Level 8.4L, Magnesium Level 1.5L, Total Bilirubin 1.8H, Direct Bilirubin 0.5H, Aspartate Amino Transf (AST/SGOT) 30, Alanine Aminotransferase (ALT/SGPT) 23, Alkaline Phosphatase 53, Pro-B-Type Natriuretic Peptide 6158H, Total Protein 7.5, Albumin 2.8L, Globulin 4.7, Albumin/Globulin Ratio 0.6L Current Medications Medications (Trade) Dose Ordered Sig/Satnam Route PRN Reason Start Time Stop Time Status Last Admin Dose Admin Aspirin (ASA) 81 mg DAILY ORAL 02/08/18 09:00 03/09/18 08:59 Carvedilol (Coreg) 6.25 mg EVERY 12 HOURS ORAL 02/07/18 21:00 03/08/18 20:59 02/07/18 21:50 Dextrose (Dextrose 50%) 25 ml STAT PRN IV Hypoglycemia 02/07/18 19:00 03/09/18 18:59 Dextrose (Dextrose 50%) 50 ml STAT PRN IV Hypoglycemia 02/07/18 19:00 03/09/18 18:59 Digoxin (Lanoxin) 0.125 mg DAILY ORAL 02/08/18 09:00 03/09/18 08:59 Docusate Sodium (Colace) 100 mg BID ORAL 02/08/18 09:00 03/08/18 17:59 Furosemide (Lasix) 40 mg DAILY IV 02/08/18 09:00 03/10/18 08:59 Guaifenesin/ Dextromethorphan (Robitussin DM Syrup) 10 ml Q4H PRN ORAL For Cough 02/08/18 08:00 03/10/18 07:59 Insulin Aspart (NovoLOG) BEFORE MEALS AND HS SUBQ 02/07/18 21:00 03/08/18 16:29 02/07/18 21:48 Losartan Potassium (Cozaar) 50 mg EVERY 12 HOURS ORAL 02/07/18 21:00 03/09/18 08:59 02/07/18 21:49 Magnesium Sulfate 100 ml @ 100 mls/hr Q1H IVPB 02/08/18 08:00 02/08/18 09:59 Metformin HCl (Glucophage) 500 mg BID ORAL 02/08/18 09:00 03/08/18 17:59 Ondansetron HCl (Zofran) 4 mg Q6H PRN IVP Nausea & Vomiting 02/07/18 19:00 03/09/18 18:59 Piperacillin Sod/ Tazobactam Sod 3.375 gm/Dextrose 110 ml @ 27.5 mls/hr Q8HR@0200,1000,1800 IVPB 02/08/18 02:00 02/14/18 09:59 02/08/18 02:00 Spironolactone (Aldactone) 25 mg DAILY ORAL 02/08/18 09:00 03/09/18 08:59 Sucralfate (Carafate) 1 gm BID ORAL 02/08/18 09:00 03/08/18 17:59 Vancomycin HCl (Vanco rx to dose) 1 ea DAILY PRN MISC Per rx protocol 02/07/18 19:00 03/09/18 18:59 Vancomycin HCl 1 gm/Dextrose 275 ml @ 183.708 mls/hr Q24H IVPB 02/08/18 09:00 5/4/18 08:59 CANDIDO SEBASTIAN Feb 08, 2018 08:28
[2018-02-08] MEDS: metFORMIN 500mg tab ORAL SCH ×2 (08:38→18:13)
[2018-02-08] MEDS: Sucralfate 1gm tab ORAL SCH ×2 (08:38→18:13)
[2018-02-08] MEDS: Spironolactone 25mg tab ORAL SCH (08:39)
[2018-02-08] MEDS: Losartan 50mg tab ORAL SCH ×2 (08:39→21:18)
[2018-02-08] MEDS: Docusate 100mg cap ORAL SCH ×2 (08:40→18:13)
[2018-02-08] MEDS: Digoxin 0.125mg tab ORAL SCH (08:40)
[2018-02-08] MEDS: Aspirin Baby 81mg ORAL SCH (08:40)
[2018-02-08] MEDS: Carvedilol 6.25mg Tab ORAL SCH ×2 (08:41→21:19)
[2018-02-08] MEDS ORDERED: Vancomycin 1 GM in D5W 275 ML IVPB SCH (09:00)
--- NOTE | 2018-02-08 11:21 | Infectious Diseases Prog Note ---
Assessment/Plan Assessment/Plan antibiotics : levoquin A 1. ? pneumonia 2. CHF 3. leucocytosis improving 4. gastric cancer 5. hypertension P 1. continue levoquin 2. sputum culture 3. will follow up cultures Subjective Constitutional: Denies: fever, chills Respiratory: Reports: shortness of breath, dry cough Gastrointestinal/Abdominal: Reports: nausea, diarrhea; Denies: vomiting Musculoskeletal: Reports: pain - in abdomen Allergies: Coded Allergies: CODEINE (Verified Allergy, Unknown, 09/25/10) Objective Vital Signs Last 24 Hour Vital Signs Date Time Temp Pulse Resp B/P (MAP) Pulse Ox O2 Delivery O2 Flow Rate FiO2 02/08/18 08:54 94 Room Air 21 02/08/18 08:54 Room Air 21 02/08/18 08:41 84 107/72 02/08/18 08:40 84 02/08/18 08:39 107/72 02/08/18 08:10 88 02/08/18 08:00 98.6 84 18 107/72 96 Room Air 98.6 02/08/18 04:00 80 02/08/18 04:00 98.0 90 20 99/61 98 Room Air 98.0 02/08/18 00:00 83 02/08/18 00:00 98.2 89 20 99/51 96 Room Air 98.2 02/07/18 21:50 86 110/65 02/07/18 21:49 110/65 02/07/18 20:00 98.2 89 20 99/51 96 Room Air 98.2 02/07/18 20:00 88 02/07/18 19:59 94 Room Air 21 02/07/18 19:59 Room Air 21 02/07/18 16:33 86 02/07/18 16:00 97.5 87 18 110/65 96 Room Air 97.5 02/07/18 13:44 94 Room Air 21 02/07/18 13:42 Room Air 21 02/07/18 12:00 98.0 87 18 102/63 100 Nasal Cannula 3.0 98.0 02/07/18 12:00 98 Height (Feet): 5 Height (Inches): 6.00 Weight (Pounds): 141 Respiratory/Chest: lungs clear Cardiovascular: normal rate, regular rhythm, no gallop/murmur Abdomen: soft, non tender Extremities: other - + edema Microbiology Date/Time Source Procedure Growth Status 02/06/18 10:00 Blood Blood Culture - Preliminary NO GROWTH AFTER 24 HOURS Resulted 02/06/18 09:50 Blood Blood Culture - Preliminary NO GROWTH AFTER 24 HOURS Resulted 02/06/18 09:40 Nasal Nares Influenza Types A,B Antigen (YAZAN) - Final Complete 02/07/18 01:10 Stool Clostridium difficile Toxin Assay - Final Complete Laboratory Tests Test 02/08/18 06:25 White Blood Count 6.8 K/UL (4.8-10.8) Red Blood Count 3.11 M/UL (4.20-5.40) L Hemoglobin 9.5 G/DL (12.0-16.0) L Hematocrit 28.4 % (37.0-47.0) L Mean Corpuscular Volume 92 FL (80-99) Mean Corpuscular Hemoglobin 30.7 PG (27.0-31.0) Mean Corpuscular Hemoglobin Concent 33.5 G/DL (32.0-36.0) Red Cell Distribution Width 15.0 % (11.6-14.8) H Platelet Count 69 K/UL (150-450) L Mean Platelet Volume 12.7 FL (6.5-10.1) H Neutrophils (%) (Auto) % (45.0-75.0) Lymphocytes (%) (Auto) % (20.0-45.0) Monocytes (%) (Auto) % (1.0-10.0) Eosinophils (%) (Auto) % (0.0-3.0) Basophils (%) (Auto) % (0.0-2.0) Differential Total Cells Counted 100 Neutrophils % (Manual) 75 % (45-75) Lymphocytes % (Manual) 18 % (20-45) L Monocytes % (Manual) 5 % (1-10) Eosinophils % (Manual) 2 % (0-3) Basophils % (Manual) 0 % (0-2) Band Neutrophils 0 % (0-8) Platelet Estimate Decreased L Platelet Morphology Normal Hypochromasia 1+ Anisocytosis 1+ Sodium Level 140 MMOL/L (136-145) Potassium Level 3.6 MMOL/L (3.5-5.1) Chloride Level 105 MMOL/L (98-107) Carbon Dioxide Level 24 MMOL/L (21-32) Anion Gap 11 mmol/L (5-15) Blood Urea Nitrogen 25 mg/dL (7-18) H Creatinine 1.2 MG/DL (0.55-1.30) Estimat Glomerular Filtration Rate mL/min (>60) Glucose Level 108 MG/DL (74-106) H Calcium Level 8.4 MG/DL (8.5-10.1) L Magnesium Level 1.5 MG/DL (1.8-2.4) L Total Bilirubin 1.8 MG/DL (0.2-1.0) H Direct Bilirubin 0.5 MG/DL (0.0-0.3) H Aspartate Amino Transf (AST/SGOT) 30 U/L (15-37) Alanine Aminotransferase (ALT/SGPT) 23 U/L (12-78) Alkaline Phosphatase 53 U/L (46-116) Pro-B-Type Natriuretic Peptide 6158 pg/mL (0-125) H Total Protein 7.5 G/DL (6.4-8.2) Albumin 2.8 G/DL (3.4-5.0) L Globulin 4.7 g/dL Albumin/Globulin Ratio 0.6 (1.0-2.7) L Current Medications Medications (Trade) Dose Ordered Sig/Satnam Route PRN Reason Start Time Stop Time Status Last Admin Dose Admin Aspirin (ASA) 81 mg DAILY ORAL 02/08/18 09:00 03/09/18 08:59 02/08/18 08:40 Carvedilol (Coreg) 6.25 mg EVERY 12 HOURS ORAL 02/07/18 21:00 03/08/18 20:59 02/08/18 08:41 Dextrose (Dextrose 50%) 25 ml STAT PRN IV Hypoglycemia 02/07/18 19:00 03/09/18 18:59 Dextrose (Dextrose 50%) 50 ml STAT PRN IV Hypoglycemia 02/07/18 19:00 03/09/18 18:59 Digoxin (Lanoxin) 0.125 mg DAILY ORAL 02/08/18 09:00 03/09/18 08:59 02/08/18 08:40 Docusate Sodium (Colace) 100 mg BID ORAL 02/08/18 09:00 03/08/18 17:59 02/08/18 08:40 Furosemide (Lasix) 40 mg DAILY IV 02/08/18 09:00 03/10/18 08:59 02/08/18 08:41 Guaifenesin/ Dextromethorphan (Robitussin DM Syrup) 10 ml Q4H PRN ORAL For Cough 02/08/18 08:00 03/10/18 07:59 Insulin Aspart (NovoLOG) BEFORE MEALS AND HS SUBQ 02/07/18 21:00 03/08/18 16:29 02/07/18 21:48 Levofloxacin (Levaquin) 750 mg Q48H ORAL 02/08/18 09:00 02/15/18 23:59 02/08/18 09:06 Losartan Potassium (Cozaar) 50 mg EVERY 12 HOURS ORAL 02/07/18 21:00 03/09/18 08:59 02/08/18 08:39 Metformin HCl (Glucophage) 500 mg BID ORAL 02/08/18 09:00 03/08/18 17:59 02/08/18 08:38 Ondansetron HCl (Zofran) 4 mg Q6H PRN IVP Nausea & Vomiting 02/07/18 19:00 03/09/18 18:59 Spironolactone (Aldactone) 25 mg DAILY ORAL 02/08/18 09:00 03/09/18 08:59 02/08/18 08:39 Sucralfate (Carafate) 1 gm BID ORAL 02/08/18 09:00 03/08/18 17:59 02/08/18 08:38 ESAU DURON Feb 08, 2018 11:21
[2018-02-08 12:00] VITALS: BP 98/61
--- NOTE | 2018-02-08 15:28 | Diagnostic Imaging Report ---
Indication: Shortness of breath Technique: XRAY Chest 1v Comparison: 02/06/2018 Findings: Stable cardiomegaly. Pacemaker again noted. There is decrease in previously seen interstitial edema. Persistent small bilateral pleural effusions and bibasilar atelectasis/consolidation. No pneumothorax. Osseous structures are stable. Impression: Decreased interstitial opacification/edema likely related to improved CHF. Small bilateral pleural effusions and bibasilar atelectasis/consolidation persist.
[2018-02-08 16:00] VITALS: BP 111/65
--- NOTE | 2018-02-08 19:30 | Progress Note ---
DATE: 02/08/2018 CARDIOLOGY PROGRESS NOTE SUBJECTIVE: The patient is weak and withdrawn. She has no chest pain and/or shortness of breath, but has very poor exercise capacity. OBJECTIVE: VITAL SIGNS: Blood pressure 98/61, pulse 86, respirations 18, afebrile, and room air oxygen 98% saturation. LUNGS: Clear breath sounds. CARDIAC: Regular rhythm rate. Normal S1, S2. There is a fourth heart sound and a 1/6 systolic apical murmur. ABDOMEN: Soft. EXTREMITIES: Trace edema. LABORATORY AND DIAGNOSTIC: Chest x-ray reveals decreased interstitial opacification and edema still with small bilateral pleural effusions and basilar atelectasis and consolidation. White count 6.8 and hemoglobin 9.5. Potassium 3.6, BUN 25, and creatinine 1.2. Pro-natriuretic peptide 6158. Albumin 2.8. Magnesium 1.5. IMPRESSION: 1. Acute on chronic systolic congestive heart failure. 2. Healthcare-acquired pneumonia. 3. Hypomagnesemia. 4. Moderate protein-calorie malnutrition. 5. Cardiac defibrillator. 6. Paroxysmal atrial and ventricular arrhythmias. 7. History of gastric cancer in remission. 8. Hypertensive and ischemic cardiomyopathy. 9. Type 2 diabetes mellitus. 10. Low range blood pressure due to diuresis. PLAN: 1. Decrease diuretic dosing. 2. Continue titration of anti-failure regimen. 3. Maintain antibiotics and respiratory hygiene. 4. IV magnesium replacement. 5. Potassium replacement as needed. 6. We will readdress full anticoagulation with rivaroxaban for cardioembolic prophylaxis with and she is considering resumption of this drug at this time. Miguel Mason M.D. DR: HINA JOB#: [id number] CC:
[2018-02-08 20:00] VITALS: BP 107/65
[2018-02-09] VITALS: BP 126/79
[2018-02-09 04:00] VITALS: BP 92/57
[2018-02-09] MEDS: NovoLOG Insulin Flexpen SUBQ SCH ×4 (06:12→21:29)
[2018-02-09 08:00] VITALS: BP 91/60
--- NOTE | 2018-02-09 08:33 | General Progress Note ---
Assessment/Plan Problem List: (1) Dyspepsia ICD Codes: K30 - Dyspepsia SNOMED: 548247701 (2) Chest pain ICD Codes: R07.9 - Chest pain, unspecified SNOMED: 79423082 (3) ICD (implantable cardiac defibrillator) discharge ICD Codes: Z03.89 - ICD (implantable cardiac defibrillator) discharge SNOMED: 131597873 (4) CHF exacerbation ICD Codes: I50.9 - CHF exacerbation SNOMED: 17808339 (5) Pneumonia ICD Codes: J18.9 - Pneumonia, unspecified organism SNOMED: 936434219 Qualifiers: Qualified Codes: J18.1 - Lobar pneumonia, unspecified organism Status: stable, progressing Assessment/Plan o2 resp care cough rx abx diuresis anxiolytics pt/ot consider short term snf Subjective ROS Limited/Unobtainable: No Constitutional: Reports: malaise, weakness HEENT: Reports: no symptoms Respiratory: Reports: cough, shortness of breath Gastrointestinal/Abdominal: Reports: difficulty swallowing, nausea Genitourinary: Reports: no symptoms Neurologic/Psychiatric: Reports: anxiety Endocrine: Reports: no symptoms Hematologic/Lymphatic: Reports: no symptoms Allergies: Coded Allergies: CODEINE (Verified Allergy, Unknown, 09/25/10) All Systems: reviewed and negative except above Subjective c/o cough with mucous. decreased sob. labs noted. no chest pain. unable to sleep Objective Last 24 Hour Vital Signs Date Time Temp Pulse Resp B/P (MAP) Pulse Ox O2 Delivery O2 Flow Rate FiO2 02/09/18 04:00 86 02/09/18 04:00 98.5 80 16 92/57 98 Room Air 98.5 02/09/18 00:00 97.8 89 15 126/79 97 Room Air 97.8 02/09/18 00:00 100 02/08/18 21:19 85 107/65 02/08/18 21:18 107/65 02/08/18 20:03 Room Air 21 02/08/18 20:03 96 Room Air 02/08/18 20:00 83 02/08/18 20:00 97.6 85 16 107/65 99 Room Air 97.6 02/08/18 16:02 82 02/08/18 16:00 97.5 85 18 111/65 98 Room Air 97.5 02/08/18 12:00 97.9 86 18 98/61 98 Room Air 97.9 02/08/18 11:27 86 02/08/18 08:54 94 Room Air 21 02/08/18 08:54 Room Air 21 02/08/18 08:41 84 107/72 02/08/18 08:40 84 02/08/18 08:39 107/72 Intake and Output 02/08/18 02/09/18 19:00 07:00 Intake Total 240 ml Output Total 200 ml Balance 40 ml Intake Oral 240 ml Output Urine Total 200 ml # Voids 2 12 # Bowel Movements 1 10 Height (Feet): 5 Height (Inches): 6.00 Weight (Pounds): 135 Objective General Appearance: WD/WN, alert, thin Neck: supple Cardiovascular: normal rate, regular rhythm Respiratory/Chest: chest wall non-tender, rhonchi - left Abdomen: normal bowel sounds, non tender, soft, no organomegaly Edema: trace edema 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
[2018-02-09] MEDS ORDERED: LORazepam 1mg tab ORAL PRN (08:45)
[2018-02-09] MEDS: Sucralfate 1gm tab ORAL SCH ×2 (08:45→17:19)
[2018-02-09] MEDS: Aspirin Baby 81mg ORAL SCH (08:46)
[2018-02-09] MEDS: Docusate 100mg cap ORAL SCH ×2 (08:46→17:19)
[2018-02-09] MEDS: Spironolactone 25mg tab ORAL SCH (08:46)
[2018-02-09] MEDS: metFORMIN 500mg tab ORAL SCH ×2 (08:46→17:19)
[2018-02-09] MEDS: Digoxin 0.125mg tab ORAL SCH (08:46)
[2018-02-09] MEDS: Losartan 50mg tab ORAL SCH ×2 (08:47→21:27)
[2018-02-09] MEDS: Carvedilol 6.25mg Tab ORAL SCH ×2 (08:47→21:26)
[2018-02-09] MEDS ORDERED: NS 275ml ONE (09:28)
--- NOTE | 2018-02-09 10:23 | Infectious Diseases Prog Note ---
Assessment/Plan Assessment/Plan antibiotics : levoquin A 1. pneumonia improving 2. CHF 3. leucocytosis improving 4. gastric cancer 5. hypertension P 1. continue levoquin 6 more days 2. will follow up cultures Subjective Constitutional: Denies: fever, chills Respiratory: Reports: shortness of breath - decreased, dry cough - decreased Gastrointestinal/Abdominal: Reports: diarrhea; Denies: nausea, vomiting Musculoskeletal: Reports: pain - in abdomen Allergies: Coded Allergies: CODEINE (Verified Allergy, Unknown, 09/25/10) Objective Vital Signs Last 24 Hour Vital Signs Date Time Temp Pulse Resp B/P (MAP) Pulse Ox O2 Delivery O2 Flow Rate FiO2 02/09/18 08:55 Room Air 21 02/09/18 08:55 96 Room Air 21 02/09/18 08:47 91/60 02/09/18 08:47 86 91/60 02/09/18 08:46 86 02/09/18 08:00 98.8 86 18 91/60 100 Room Air 98.8 02/09/18 07:46 88 02/09/18 04:00 86 02/09/18 04:00 98.5 80 16 92/57 98 Room Air 98.5 02/09/18 00:00 97.8 89 15 126/79 97 Room Air 97.8 02/09/18 00:00 100 02/08/18 21:19 85 107/65 02/08/18 21:18 107/65 02/08/18 20:03 Room Air 21 02/08/18 20:03 96 Room Air 02/08/18 20:00 83 02/08/18 20:00 97.6 85 16 107/65 99 Room Air 97.6 02/08/18 16:02 82 02/08/18 16:00 97.5 85 18 111/65 98 Room Air 97.5 02/08/18 12:00 97.9 86 18 98/61 98 Room Air 97.9 02/08/18 11:27 86 Height (Feet): 5 Height (Inches): 6.00 Weight (Pounds): 135 Microbiology Date/Time Source Procedure Growth Status 02/07/18 01:10 Stool Clostridium difficile Toxin Assay - Final Complete Current Medications Medications (Trade) Dose Ordered Sig/Satnam Route PRN Reason Start Time Stop Time Status Last Admin Dose Admin Aspirin (ASA) 81 mg DAILY ORAL 02/08/18 09:00 03/09/18 08:59 02/09/18 08:46 Carvedilol (Coreg) 6.25 mg EVERY 12 HOURS ORAL 02/07/18 21:00 03/08/18 20:59 02/08/18 21:19 Dextrose (Dextrose 50%) 25 ml STAT PRN IV Hypoglycemia 02/07/18 19:00 03/09/18 18:59 Dextrose (Dextrose 50%) 50 ml STAT PRN IV Hypoglycemia 02/07/18 19:00 03/09/18 18:59 Digoxin (Lanoxin) 0.125 mg DAILY ORAL 02/08/18 09:00 03/09/18 08:59 02/09/18 08:46 Docusate Sodium (Colace) 100 mg BID ORAL 02/08/18 09:00 03/08/18 17:59 02/08/18 18:13 Furosemide (Lasix) 40 mg DAILY IV 02/08/18 09:00 03/10/18 08:59 02/08/18 08:41 Guaifenesin/ Dextromethorphan (Robitussin DM Syrup) 10 ml Q4H PRN ORAL For Cough 02/08/18 08:00 03/10/18 07:59 02/08/18 18:13 Insulin Aspart (NovoLOG) BEFORE MEALS AND HS SUBQ 02/07/18 21:00 03/08/18 16:29 02/09/18 06:12 Levofloxacin (Levaquin) 750 mg Q48H ORAL 02/08/18 09:00 02/15/18 23:59 02/08/18 09:06 Lorazepam (Ativan) 1 mg Q6H PRN ORAL For Anxiety 02/09/18 08:45 02/16/18 08:44 02/09/18 08:52 Losartan Potassium (Cozaar) 50 mg EVERY 12 HOURS ORAL 02/07/18 21:00 03/09/18 08:59 02/08/18 21:18 Magnesium Sulfate 100 ml @ 100 mls/hr Q1H IVPB 02/09/18 12:00 02/09/18 14:30 Metformin HCl (Glucophage) 500 mg BID ORAL 02/08/18 09:00 03/08/18 17:59 02/09/18 08:46 Ondansetron HCl (Zofran) 4 mg Q6H PRN IVP Nausea & Vomiting 02/07/18 19:00 03/09/18 18:59 02/08/18 18:13 Spironolactone (Aldactone) 25 mg DAILY ORAL 02/08/18 09:00 03/09/18 08:59 02/09/18 08:46 Sucralfate (Carafate) 1 gm BID ORAL 02/08/18 09:00 03/08/18 17:59 02/09/18 08:45 ESAU DURON February 09, 2018 10:23
[2018-02-09 12:00] VITALS: BP 104/68
[2018-02-09 16:00] VITALS: BP 106/57
--- NOTE | 2018-02-09 18:35 | Pulmonology Progress Note ---
Assessment/Plan Assessment/Plan MPRESSION possible PNA CHF shortness of breath hypoxemia leukocytosis ho atrial fibrillation, paroxysmal respiratory failure PLAN empiric antibiotics - per ID cardiac management with improvement oxygen as needed monitor fluid status and diurese follow up imaging for improvement supportive care follow up ABG BIPAP not needed imaging reviewed DVT prophylaxis impression, plan, and exam edited and reviewed in detail care discussed with RN Subjective Allergies: Coded Allergies: CODEINE (Verified Allergy, Unknown, 09/25/10) Subjective overnight events noted on diuretics stable ID noted dry cough Objective Last 24 Hour Vital Signs Date Time Temp Pulse Resp B/P (MAP) Pulse Ox O2 Delivery O2 Flow Rate FiO2 02/09/18 16:00 98.1 88 18 106/57 99 Room Air 98.1 02/09/18 15:39 83 02/09/18 12:00 98.1 87 18 104/68 98 Room Air 98.1 02/09/18 11:31 72 02/09/18 08:55 Room Air 21 02/09/18 08:55 96 Room Air 21 02/09/18 08:47 91/60 02/09/18 08:47 86 91/60 02/09/18 08:46 86 02/09/18 08:00 98.8 86 18 91/60 100 Room Air 98.8 02/09/18 07:46 88 02/09/18 04:00 86 02/09/18 04:00 98.5 80 16 92/57 98 Room Air 98.5 02/09/18 00:00 97.8 89 15 126/79 97 Room Air 97.8 02/09/18 00:00 100 02/08/18 21:19 85 107/65 02/08/18 21:18 107/65 02/08/18 20:03 Room Air 21 02/08/18 20:03 96 Room Air 02/08/18 20:00 83 02/08/18 20:00 97.6 85 16 107/65 99 Room Air 97.6 Intake and Output 02/08/18 02/09/18 19:00 07:00 Intake Total 240 ml Output Total 200 ml Balance 40 ml Intake Oral 240 ml Output Urine Total 200 ml # Voids 2 12 # Bowel Movements 1 10 Objective WDWN NAD currently on NC oxygen reduced breath sounds bilaterally without rhonchi or wheeze [id number] without MRG NABS nontender no HSM no CC minimal edema nonfocal and alert Microbiology Date/Time Source Procedure Growth Status 02/07/18 01:10 Stool Clostridium difficile Toxin Assay - Final Complete Current Medications Medications (Trade) Dose Ordered Sig/Satnam Route PRN Reason Start Time Stop Time Status Last Admin Dose Admin Aspirin (ASA) 81 mg DAILY ORAL 02/08/18 09:00 03/09/18 08:59 02/09/18 08:46 Carvedilol (Coreg) 6.25 mg EVERY 12 HOURS ORAL 02/07/18 21:00 03/08/18 20:59 02/08/18 21:19 Dextrose (Dextrose 50%) 25 ml STAT PRN IV Hypoglycemia 02/07/18 19:00 03/09/18 18:59 Dextrose (Dextrose 50%) 50 ml STAT PRN IV Hypoglycemia 02/07/18 19:00 03/09/18 18:59 Digoxin (Lanoxin) 0.125 mg DAILY ORAL 02/08/18 09:00 03/09/18 08:59 02/09/18 08:46 Docusate Sodium (Colace) 100 mg BID ORAL 02/08/18 09:00 03/08/18 17:59 02/08/18 18:13 Furosemide (Lasix) 40 mg DAILY IV 02/08/18 09:00 03/10/18 08:59 02/08/18 08:41 Guaifenesin/ Dextromethorphan (Robitussin DM Syrup) 10 ml Q4H PRN ORAL For Cough 02/08/18 08:00 03/10/18 07:59 02/08/18 18:13 Insulin Aspart (NovoLOG) BEFORE MEALS AND HS SUBQ 02/07/18 21:00 03/08/18 16:29 02/09/18 17:18 Levofloxacin (Levaquin) 750 mg Q48H ORAL 02/08/18 09:00 02/15/18 23:59 02/08/18 09:06 Lorazepam (Ativan) 1 mg Q6H PRN ORAL For Anxiety 02/09/18 08:45 02/16/18 08:44 02/09/18 08:52 Losartan Potassium (Cozaar) 50 mg EVERY 12 HOURS ORAL 02/07/18 21:00 03/09/18 08:59 02/08/18 21:18 Metformin HCl (Glucophage) 500 mg BID ORAL 02/08/18 09:00 03/08/18 17:59 02/09/18 17:19 Ondansetron HCl (Zofran) 4 mg Q6H PRN IVP Nausea & Vomiting 02/07/18 19:00 03/09/18 18:59 02/08/18 18:13 Spironolactone (Aldactone) 25 mg DAILY ORAL 02/08/18 09:00 03/09/18 08:59 02/09/18 08:46 Sucralfate (Carafate) 1 gm BID ORAL 02/08/18 09:00 03/08/18 17:59 02/09/18 17:19 CANDIDO SEBASTIAN February 09, 2018 18:35
[2018-02-09 20:00] VITALS: BP 128/71
[2018-02-10] VITALS: BP 121/66
[2018-02-10 04:00] VITALS: BP 109/88
--- NOTE | 2018-02-10 05:30 | Progress Note ---
DATE: 02/09/2018 CARDIOLOGY PROGRESS NOTE SUBJECTIVE: The patient did not sleep well last night. She has more shortness of breath today and her legs are more swollen. PHYSICAL EXAMINATION: VITAL SIGNS: Blood pressure 126/79 at midnight and now 92/57, heart rate 80, respiratory rate 16. NECK: Supple. LUNGS: Few rales bilaterally. CARDIAC: Regular rhythm and rate. Normal S1, S2. A 1/6 systolic murmur at apex. ABDOMEN: Soft. EXTREMITIES: A 1+ pitting edema bilaterally. LABORATORY DATA: No new labs yet. IMPRESSION: 1. Acute on chronic systolic congestive heart failure. 2. Acute myocardial ischemia and possible [id number] infarction. 3. Hypertensive cardiomyopathy. 4. Cardiac defibrillator. 5. Healthcare-acquired pneumonia. 6. Paroxysmal atrial fibrillation. PLAN: 1. Continue antimicrobials. 2. Respiratory hygiene. 3. Leg elevation. 4. DVT prophylaxis. 5. Hold anticoagulation due to bleeding risk. 6. Increase diuresis again. Miguel Mason M.D. DR: Wilda JOB#: [id number] CC:
[2018-02-10] MEDS: NovoLOG Insulin Flexpen SUBQ SCH ×4 (06:30→20:34)
[2018-02-10 08:00] VITALS: BP 122/72
[2018-02-10 08:16] LABS: HEMATOCRIT 29.6 % (37.0-47.0); HEMOGLOBIN 9.7 G/DL (12.0-16.0); MEAN CORPUSCULAR VOLUME 92 FL (80-99); PLATELET COUNT 93 K/UL (150-450); RED BLOOD COUNT 3.21 M/UL (4.20-5.40); RED CELL DISTRIBUTION WIDTH 14.8 % (11.6-14.8); WHITE BLOOD COUNT 6.1 K/UL (4.8-10.8)
--- NOTE | 2018-02-10 08:25 | General Progress Note ---
Assessment/Plan Problem List: (1) Dyspepsia ICD Codes: K30 - Dyspepsia SNOMED: 542612124 (2) Chest pain ICD Codes: R07.9 - Chest pain, unspecified SNOMED: 39734392 (3) ICD (implantable cardiac defibrillator) discharge ICD Codes: Z03.89 - ICD (implantable cardiac defibrillator) discharge SNOMED: 212756873 (4) CHF exacerbation ICD Codes: I50.9 - CHF exacerbation SNOMED: 53080958 (5) Pneumonia ICD Codes: J18.9 - Pneumonia, unspecified organism SNOMED: 568935765 Qualifiers: Qualified Codes: J18.1 - Lobar pneumonia, unspecified organism Status: stable, progressing Assessment/Plan o2 resp care cough rx abx iv diuresis anxiolytics pt/ot consider short term snf Subjective ROS Limited/Unobtainable: No Constitutional: Reports: malaise, weakness HEENT: Reports: no symptoms Cardiovascular: Reports: no symptoms Respiratory: Reports: orthopnea, shortness of breath, SOB with excertion Gastrointestinal/Abdominal: Reports: no symptoms Genitourinary: Reports: no symptoms Neurologic/Psychiatric: Reports: no symptoms Endocrine: Reports: no symptoms Hematologic/Lymphatic: Reports: no symptoms Allergies: Coded Allergies: CODEINE (Verified Allergy, Unknown, 09/25/10) All Systems: reviewed and negative except above Subjective decrease cough. decreased sob. overall feels better today. no chest pain lasix increased by cards. . Objective Last 24 Hour Vital Signs Date Time Temp Pulse Resp B/P (MAP) Pulse Ox O2 Delivery O2 Flow Rate FiO2 02/10/18 08:04 78 18 Room Air 21 02/10/18 04:00 98.5 86 20 109/88 99 Room Air 98.5 02/10/18 04:00 87 02/10/18 00:00 88 02/10/18 00:00 98.6 95 20 121/66 97 Room Air 98.6 02/09/18 21:27 128/71 02/09/18 21:26 88 128/71 02/09/18 20:00 98.5 88 20 128/71 91 Room Air 98.5 02/09/18 20:00 86 02/09/18 16:00 98.1 88 18 106/57 99 Room Air 98.1 02/09/18 15:39 83 02/09/18 12:00 98.1 87 18 104/68 98 Room Air 98.1 02/09/18 11:31 72 02/09/18 08:55 Room Air 21 02/09/18 08:55 96 Room Air 21 02/09/18 08:47 91/60 02/09/18 08:47 86 91/60 02/09/18 08:46 86 Intake and Output 02/09/18 02/10/18 19:00 07:00 Intake Total 360 ml 400 ml Balance 360 ml 400 ml Intake Oral 360 ml 400 ml # Voids 3 3 # Bowel Movements 1 Laboratory Tests 02/10/18 07:35: White Blood Count 6.1, Red Blood Count 3.21L, Hemoglobin 9.7L, Hematocrit 29.6L , Mean Corpuscular Volume 92, Mean Corpuscular Hemoglobin 30.1, Mean Corpuscular Hemoglobin Concent 32.7, Red Cell Distribution Width 14.8, Platelet Count 93L, Mean Platelet Volume 11.7H, Neutrophils (%) (Auto) , Lymphocytes (%) (Auto) , Monocytes (%) (Auto) , Eosinophils (%) (Auto) , Basophils (%) (Auto) , Neutrophils % (Manual) [Pending], Lymphocytes % (Manual) [Pending], Platelet Estimate [Pending], Platelet Morphology [Pending], Sodium Level [Pending], Potassium Level [Pending], Chloride Level [Pending], Carbon Dioxide Level [ Pending], Blood Urea Nitrogen [Pending], Creatinine [Pending], Estimat Glomerular Filtration Rate [Pending], Glucose Level [Pending], Calcium Level [ Pending], Magnesium Level [Pending], Total Bilirubin [Pending], Aspartate Amino Transf (AST/SGOT) [Pending], Alanine Aminotransferase (ALT/SGPT) [Pending], Alkaline Phosphatase [Pending], Pro-B-Type Natriuretic Peptide [Pending], Total Protein [Pending], Albumin [Pending], Globulin [Pending] Height (Feet): 5 Height (Inches): 6.00 Weight (Pounds): 136 Objective General Appearance: WD/WN, alert, thin Neck: supple Cardiovascular: normal rate, regular rhythm Respiratory/Chest: chest wall non-tender, rhonchi - left Abdomen: normal bowel sounds, non tender, soft, no organomegaly Edema: trace edema 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
[2018-02-10] MEDS: Spironolactone 25mg tab ORAL SCH (08:57)
[2018-02-10] MEDS: Carvedilol 6.25mg Tab ORAL SCH ×2 (08:57→20:33)
[2018-02-10] MEDS: Losartan 50mg tab ORAL SCH ×2 (08:57→20:33)
[2018-02-10] MEDS: Docusate 100mg cap ORAL SCH ×2 (08:58→17:52)
[2018-02-10] MEDS: Aspirin Baby 81mg ORAL SCH (08:58)
[2018-02-10] MEDS: metFORMIN 500mg tab ORAL SCH ×2 (08:58→17:51)
[2018-02-10] MEDS: Sucralfate 1gm tab ORAL SCH ×2 (08:58→17:52)
[2018-02-10] MEDS: Digoxin 0.125mg tab ORAL SCH (08:58)
[2018-02-10 09:04] LABS: ALANINE AMINOTRANSFERASE 21 U/L (12-78); ALBUMIN 2.9 G/DL (3.4-5.0); ALBUMIN/GLOBULIN RATIO 0.6 (1.0-2.7); ALKALINE PHOSPHATASE 60 U/L (46-116); ANION GAP 9 mmol/L (5-15); ASPARTATE AMINO TRANSFERASE 21 U/L (15-37); BILIRUBIN,TOTAL 1.1 MG/DL (0.2-1.0); BLOOD UREA NITROGEN 15 mg/dL (7-18); CALCIUM 8.6 MG/DL (8.5-10.1); CARBON DIOXIDE 25 MMOL/L (21-32); CHLORIDE 104 MMOL/L (98-107); CREATININE 0.8 MG/DL (0.55-1.30); POTASSIUM 3.7 MMOL/L (3.5-5.1); SODIUM 138 MMOL/L (136-145)
[2018-02-10 09:06] LABS: BILIRUBIN,DIRECT 0.4 MG/DL (0.0-0.3)
--- NOTE | 2018-02-10 10:32 | Pulmonology Progress Note ---
Assessment/Plan Assessment/Plan MPRESSION possible PNA CHF shortness of breath hypoxemia leukocytosis ho atrial fibrillation, paroxysmal respiratory failure PLAN ID noted cardiac management with improvement overall oxygen as needed monitor fluid status and diurese and monitor for change follow up on BNP follow up imaging for improvement supportive care follow up ABG BIPAP not needed imaging reviewed DVT prophylaxis impression, plan, and exam edited and reviewed in detail care discussed with RN Subjective Allergies: Coded Allergies: CODEINE (Verified Allergy, Unknown, 09/25/10) Subjective overnight events noted on diuretics stable ID noted and antibiotic rx noted dry cough improved Objective Last 24 Hour Vital Signs Date Time Temp Pulse Resp B/P (MAP) Pulse Ox O2 Delivery O2 Flow Rate FiO2 02/10/18 08:58 78 02/10/18 08:57 122/72 02/10/18 08:57 78 122/72 02/10/18 08:04 78 18 Room Air 21 02/10/18 08:00 98.0 76 20 122/72 96 Room Air 98.0 02/10/18 07:55 87 02/10/18 04:00 98.5 86 20 109/88 99 Room Air 98.5 02/10/18 04:00 87 02/10/18 00:00 88 02/10/18 00:00 98.6 95 20 121/66 97 Room Air 98.6 02/09/18 21:27 128/71 02/09/18 21:26 88 128/71 02/09/18 20:00 98.5 88 20 128/71 91 Room Air 98.5 02/09/18 20:00 86 02/09/18 16:00 98.1 88 18 106/57 99 Room Air 98.1 02/09/18 15:39 83 02/09/18 12:00 98.1 87 18 104/68 98 Room Air 98.1 02/09/18 11:31 72 Intake and Output 02/09/18 02/10/18 19:00 07:00 Intake Total 360 ml 400 ml Balance 360 ml 400 ml Intake Oral 360 ml 400 ml # Voids 3 3 # Bowel Movements 1 Objective WDWN NAD currently on NC oxygen reduced breath sounds bilaterally without rhonchi or wheeze [id number] without MRG NABS nontender no HSM no CC minimal edema nonfocal and alert Laboratory Tests 02/10/18 07:35: White Blood Count 6.1, Red Blood Count 3.21L, Hemoglobin 9.7L, Hematocrit 29.6L , Mean Corpuscular Volume 92, Mean Corpuscular Hemoglobin 30.1, Mean Corpuscular Hemoglobin Concent 32.7, Red Cell Distribution Width 14.8, Platelet Count 93L, Mean Platelet Volume 11.7H, Neutrophils (%) (Auto) , Lymphocytes (%) (Auto) , Monocytes (%) (Auto) , Eosinophils (%) (Auto) , Basophils (%) (Auto) , Neutrophils % (Manual) [Pending], Lymphocytes % (Manual) [Pending], Platelet Estimate [Pending], Platelet Morphology [Pending], Sodium Level 138, Potassium Level 3.7, Chloride Level 104, Carbon Dioxide Level 25, Anion Gap 9, Blood Urea Nitrogen 15, Creatinine 0.8, Estimat Glomerular Filtration Rate , Glucose Level 94, Calcium Level 8.6, Magnesium Level 2.0, Total Bilirubin 1.1H, Direct Bilirubin 0.4H, Aspartate Amino Transf (AST/SGOT) 21, Alanine Aminotransferase ( ALT/SGPT) 21, Alkaline Phosphatase 60, Pro-B-Type Natriuretic Peptide 3074H, Total Protein 7.6, Albumin 2.9L, Globulin 4.7, Albumin/Globulin Ratio 0.6L Current Medications Medications (Trade) Dose Ordered Sig/Satnam Route PRN Reason Start Time Stop Time Status Last Admin Dose Admin Aspirin (ASA) 81 mg DAILY ORAL 02/08/18 09:00 03/09/18 08:59 02/10/18 08:58 Carvedilol (Coreg) 6.25 mg EVERY 12 HOURS ORAL 02/07/18 21:00 03/08/18 20:59 02/10/18 08:57 Dextrose (Dextrose 50%) 25 ml STAT PRN IV Hypoglycemia 02/07/18 19:00 03/09/18 18:59 Dextrose (Dextrose 50%) 50 ml STAT PRN IV Hypoglycemia 02/07/18 19:00 03/09/18 18:59 Digoxin (Lanoxin) 0.125 mg DAILY ORAL 02/08/18 09:00 03/09/18 08:59 02/10/18 08:58 Docusate Sodium (Colace) 100 mg BID ORAL 02/08/18 09:00 03/08/18 17:59 02/10/18 08:58 Furosemide (Lasix) 40 mg BID IV 02/10/18 09:00 03/12/18 08:59 02/10/18 08:58 Guaifenesin/ Dextromethorphan (Robitussin DM Syrup) 10 ml Q4H PRN ORAL For Cough 02/08/18 08:00 03/10/18 07:59 02/08/18 18:13 Insulin Aspart (NovoLOG) BEFORE MEALS AND HS SUBQ 02/07/18 21:00 03/08/18 16:29 02/09/18 21:29 Levofloxacin (Levaquin) 750 mg Q48H ORAL 02/08/18 09:00 02/15/18 23:59 02/10/18 08:58 Lorazepam (Ativan) 1 mg Q6H PRN ORAL For Anxiety 02/09/18 08:45 02/16/18 08:44 02/09/18 08:52 Losartan Potassium (Cozaar) 50 mg EVERY 12 HOURS ORAL 02/07/18 21:00 03/09/18 08:59 02/10/18 08:57 Metformin HCl (Glucophage) 500 mg BID ORAL 02/08/18 09:00 03/08/18 17:59 02/10/18 08:58 Ondansetron HCl (Zofran) 4 mg Q6H PRN IVP Nausea & Vomiting 02/07/18 19:00 03/09/18 18:59 02/08/18 18:13 Spironolactone (Aldactone) 25 mg DAILY ORAL 02/08/18 09:00 03/09/18 08:59 02/10/18 08:57 Sucralfate (Carafate) 1 gm BID ORAL 02/08/18 09:00 03/08/18 17:59 02/10/18 08:58 CANDIDO SEBASTIAN February 10, 2018 10:32
[2018-02-10 12:00] VITALS: BP 138/69
--- NOTE | 2018-02-10 12:53 | Infectious Diseases Prog Note ---
Assessment/Plan Assessment/Plan A 1. pneumonia improving 2. CHF 3. leucocytosis resolved 4. gastric cancer 5. hypertension 6. Diarrhea. C. difficile negative P 1. continue Levaquin 5 more days 2. will follow up cultures Subjective ROS Limited/Unobtainable: No Constitutional: Reports: no symptoms Respiratory: Reports: dry cough Cardiovascular: Reports: no symptoms Gastrointestinal/Abdominal: Reports: diarrhea, other - X 4 this morning Genitourinary: Reports: no symptoms Musculoskeletal: Reports: pain, other - in tail bone Allergies: Coded Allergies: CODEINE (Verified Allergy, Unknown, 09/25/10) Objective Vital Signs Last 24 Hour Vital Signs Date Time Temp Pulse Resp B/P (MAP) Pulse Ox O2 Delivery O2 Flow Rate FiO2 02/10/18 08:58 78 02/10/18 08:57 122/72 02/10/18 08:57 78 122/72 02/10/18 08:04 78 18 Room Air 21 02/10/18 08:00 98.0 76 20 122/72 96 Room Air 98.0 02/10/18 07:55 87 02/10/18 04:00 98.5 86 20 109/88 99 Room Air 98.5 02/10/18 04:00 87 02/10/18 00:00 88 02/10/18 00:00 98.6 95 20 121/66 97 Room Air 98.6 02/09/18 21:27 128/71 02/09/18 21:26 88 128/71 02/09/18 20:00 98.5 88 20 128/71 91 Room Air 98.5 02/09/18 20:00 86 02/09/18 16:00 98.1 88 18 106/57 99 Room Air 98.1 02/09/18 15:39 83 Height (Feet): 5 Height (Inches): 6.00 Weight (Pounds): 136 General Appearance: no acute distress HEENT: mucous membranes moist Respiratory/Chest: lungs clear Cardiovascular: normal rate Abdomen: soft, non tender Extremities: no edema Neurologic/Psychiatric: alert, oriented x 3, responsive Microbiology Date/Time Source Procedure Growth Status 02/09/18 04:00 Sputum Gram Stain - Final Resulted 02/09/18 04:00 Sputum Sputum Culture Pending Resulted Laboratory Tests Test 02/10/18 07:35 White Blood Count 6.1 K/UL (4.8-10.8) Red Blood Count 3.21 M/UL (4.20-5.40) L Hemoglobin 9.7 G/DL (12.0-16.0) L Hematocrit 29.6 % (37.0-47.0) L Mean Corpuscular Volume 92 FL (80-99) Mean Corpuscular Hemoglobin 30.1 PG (27.0-31.0) Mean Corpuscular Hemoglobin Concent 32.7 G/DL (32.0-36.0) Red Cell Distribution Width 14.8 % (11.6-14.8) Platelet Count 93 K/UL (150-450) L Mean Platelet Volume 11.7 FL (6.5-10.1) H Neutrophils (%) (Auto) % (45.0-75.0) Lymphocytes (%) (Auto) % (20.0-45.0) Monocytes (%) (Auto) % (1.0-10.0) Eosinophils (%) (Auto) % (0.0-3.0) Basophils (%) (Auto) % (0.0-2.0) Differential Total Cells Counted 100 Neutrophils % (Manual) 74 % (45-75) Lymphocytes % (Manual) 20 % (20-45) Monocytes % (Manual) 4 % (1-10) Eosinophils % (Manual) 1 % (0-3) Basophils % (Manual) 1 % (0-2) Band Neutrophils 0 % (0-8) Platelet Estimate Decreased L Platelet Morphology Normal Sodium Level 138 MMOL/L (136-145) Potassium Level 3.7 MMOL/L (3.5-5.1) Chloride Level 104 MMOL/L (98-107) Carbon Dioxide Level 25 MMOL/L (21-32) Anion Gap 9 mmol/L (5-15) Blood Urea Nitrogen 15 mg/dL (7-18) Creatinine 0.8 MG/DL (0.55-1.30) Estimat Glomerular Filtration Rate mL/min (>60) Glucose Level 94 MG/DL (74-106) Calcium Level 8.6 MG/DL (8.5-10.1) Magnesium Level 2.0 MG/DL (1.8-2.4) Total Bilirubin 1.1 MG/DL (0.2-1.0) H Direct Bilirubin 0.4 MG/DL (0.0-0.3) H Aspartate Amino Transf (AST/SGOT) 21 U/L (15-37) Alanine Aminotransferase (ALT/SGPT) 21 U/L (12-78) Alkaline Phosphatase 60 U/L (46-116) Pro-B-Type Natriuretic Peptide 3074 pg/mL (0-125) H Total Protein 7.6 G/DL (6.4-8.2) Albumin 2.9 G/DL (3.4-5.0) L Globulin 4.7 g/dL Albumin/Globulin Ratio 0.6 (1.0-2.7) L Current Medications Medications (Trade) Dose Ordered Sig/Satnam Route PRN Reason Start Time Stop Time Status Last Admin Dose Admin Aspirin (ASA) 81 mg DAILY ORAL 02/08/18 09:00 03/09/18 08:59 02/10/18 08:58 Carvedilol (Coreg) 6.25 mg EVERY 12 HOURS ORAL 02/07/18 21:00 03/08/18 20:59 02/10/18 08:57 Dextrose (Dextrose 50%) 25 ml STAT PRN IV Hypoglycemia 02/07/18 19:00 03/09/18 18:59 Dextrose (Dextrose 50%) 50 ml STAT PRN IV Hypoglycemia 02/07/18 19:00 03/09/18 18:59 Digoxin (Lanoxin) 0.125 mg DAILY ORAL 02/08/18 09:00 03/09/18 08:59 02/10/18 08:58 Docusate Sodium (Colace) 100 mg BID ORAL 02/08/18 09:00 03/08/18 17:59 02/10/18 08:58 Furosemide (Lasix) 40 mg BID IV 02/10/18 09:00 03/12/18 08:59 02/10/18 08:58 Guaifenesin/ Dextromethorphan (Robitussin DM Syrup) 10 ml Q4H PRN ORAL For Cough 02/08/18 08:00 03/10/18 07:59 02/08/18 18:13 Insulin Aspart (NovoLOG) BEFORE MEALS AND HS SUBQ 02/07/18 21:00 03/08/18 16:29 02/10/18 12:00 Levofloxacin (Levaquin) 750 mg Q48H ORAL 02/08/18 09:00 02/15/18 23:59 02/10/18 08:58 Lorazepam (Ativan) 1 mg Q6H PRN ORAL For Anxiety 02/09/18 08:45 02/16/18 08:44 02/09/18 08:52 Losartan Potassium (Cozaar) 50 mg EVERY 12 HOURS ORAL 02/07/18 21:00 03/09/18 08:59 02/10/18 08:57 Metformin HCl (Glucophage) 500 mg BID ORAL 02/08/18 09:00 03/08/18 17:59 02/10/18 08:58 Ondansetron HCl (Zofran) 4 mg Q6H PRN IVP Nausea & Vomiting 02/07/18 19:00 03/09/18 18:59 02/08/18 18:13 Spironolactone (Aldactone) 25 mg DAILY ORAL 02/08/18 09:00 03/09/18 08:59 02/10/18 08:57 Sucralfate (Carafate) 1 gm BID ORAL 02/08/18 09:00 03/08/18 17:59 02/10/18 08:58 LEOLA JACOBO February 10, 2018 12:53
[2018-02-10 16:00] VITALS: BP 104/60
[2018-02-10] MEDS ORDERED: Lomotil 2.5mg tab ORAL PRN (19:00)
--- NOTE | 2018-02-10 19:45 | Progress Note ---
DATE: 02/10/2018 SUBJECTIVE: The patient complains of diarrhea. Still with some cough, but overall improved. Less shortness of breath and leg swelling. OBJECTIVE: VITAL SIGNS: Blood pressure 104/60, pulse 81, and respirations 20. Afebrile. LUNGS: Few rales. CARDIAC: Regular rhythm and rate. Normal S1 and S2. A 1/6 systolic apical murmur. ABDOMEN: Soft. EXTREMITIES: A 1+ edema. LABORATORY DATA: Pro-natriuretic peptide has decreased to 3074. Albumin 2.9. Chemistry panel within normal limits. BUN creatinine are 15 and 0.8. Stool C. diff is negative. IMPRESSION: 1. Diarrhea may be due to medications. 2. Acute on chronic systolic congestive heart failure, improving. 3. Healthcare-acquired pneumonia, recovering. 4. Moderate protein-calorie malnutrition, improved. 5. History of gastric cancer, in remission. 6. Cardiac defibrillator with no shock. PLAN: 1. Discontinue Carafate. 2. Discontinue Colace. 3. Add Lomotil. 4. Add lactobacillus. 5. Continue diuresis. Miguel Mason M.D. DR: HINA JOB#: [id number] CC:
[2018-02-10 20:00] VITALS: BP 112/70
[2018-02-10] MEDS ORDERED: Lomotil 2.5mg tab ORAL ONE (20:00)
[2018-02-10] MEDS: Lactobacillus-GG tablet ORAL SCH (20:32)
[2018-02-11] VITALS: BP 113/77
[2018-02-11 04:00] VITALS: BP 100/62
[2018-02-11] MEDS: NovoLOG Insulin Flexpen SUBQ SCH ×4 (06:30→20:52)
[2018-02-11 08:00] VITALS: BP 109/53
--- NOTE | 2018-02-11 08:03 | General Progress Note ---
Assessment/Plan Problem List: (1) Dyspepsia ICD Codes: K30 - Dyspepsia SNOMED: 538080424 (2) Chest pain ICD Codes: R07.9 - Chest pain, unspecified SNOMED: 44945568 (3) ICD (implantable cardiac defibrillator) discharge ICD Codes: Z03.89 - ICD (implantable cardiac defibrillator) discharge SNOMED: 410594714 (4) CHF exacerbation ICD Codes: I50.9 - CHF exacerbation SNOMED: 11097308 (5) Pneumonia ICD Codes: J18.9 - Pneumonia, unspecified organism SNOMED: 613845627 Qualifiers: Qualified Codes: J18.1 - Lobar pneumonia, unspecified organism Status: stable Assessment/Plan o2 resp care cough rx abx iv diuresis- compliance stressed lidoderm patch anxiolytics pt/ot consider short term snf Subjective ROS Limited/Unobtainable: No Constitutional: Reports: malaise, weakness HEENT: Reports: no symptoms Cardiovascular: Reports: no symptoms Respiratory: Reports: cough Gastrointestinal/Abdominal: Reports: diarrhea, nausea Genitourinary: Reports: no symptoms Neurologic/Psychiatric: Reports: anxiety Endocrine: Reports: no symptoms Allergies: Coded Allergies: CODEINE (Verified Allergy, Unknown, 09/25/10) All Systems: reviewed and negative except above Subjective c/o diarrhea. refused lasix yesterday. pain over sacrum. mild nausea Objective Last 24 Hour Vital Signs Date Time Temp Pulse Resp B/P (MAP) Pulse Ox O2 Delivery O2 Flow Rate FiO2 02/11/18 04:00 97.9 73 18 100/62 95 Room Air 97.9 73 02/11/18 04:00 82 02/11/18 00:00 98.4 90 18 113/77 98 Room Air 98.4 90 02/11/18 00:00 81 02/10/18 20:33 110/64 02/10/18 20:33 97 110/64 02/10/18 20:00 84 02/10/18 20:00 98.1 84 18 112/70 97 Room Air 98.1 02/10/18 19:50 76 18 Room Air 21 02/10/18 16:00 98.0 81 20 104/60 98 Room Air 98.0 02/10/18 15:09 80 02/10/18 12:00 97.8 72 20 138/69 98 Room Air 97.8 02/10/18 11:51 78 02/10/18 08:58 78 02/10/18 08:57 122/72 02/10/18 08:57 78 122/72 02/10/18 08:04 78 18 Room Air 21 Intake and Output 02/10/18 02/11/18 19:00 07:00 Intake Total 600 ml 200 ml Balance 600 ml 200 ml Intake Oral 600 ml 200 ml # Voids 2 2 # Bowel Movements 2 Height (Feet): 5 Height (Inches): 6.00 Weight (Pounds): 135 Objective General Appearance: WD/WN, alert, thin Neck: supple Cardiovascular: normal rate, regular rhythm Respiratory/Chest: chest wall non-tender, rhonchi - left Abdomen: normal bowel sounds, non tender, soft, no organomegaly Edema: trace edema Neurologic: cover assembler II-XII grossly normal, no motor/sensory deficits, alert, oriented x 3, responsive DANIELLE SIMONS February 11, 2018 08:03
[2018-02-11] MEDS ORDERED: Lomotil 2.5mg tab ORAL PRN ×3 (08:15→20:15)
[2018-02-11] MEDS: Aspirin Baby 81mg ORAL SCH (08:32)
[2018-02-11] MEDS: Digoxin 0.125mg tab ORAL SCH (08:32)
[2018-02-11] MEDS: metFORMIN 500mg tab ORAL SCH ×2 (08:32→18:16)
[2018-02-11] MEDS: Lactobacillus-GG tablet ORAL SCH ×3 (08:32→18:15)
[2018-02-11] MEDS: Losartan 50mg tab ORAL SCH ×2 (08:38→20:51)
[2018-02-11] MEDS: Carvedilol 6.25mg Tab ORAL SCH ×2 (08:38→20:52)
[2018-02-11] MEDS: Spironolactone 25mg tab ORAL SCH (08:38)
--- NOTE | 2018-02-11 08:39 | Pulmonology Progress Note ---
Assessment/Plan Assessment/Plan MPRESSION possible PNA CHF shortness of breath hypoxemia leukocytosis ho atrial fibrillation, paroxysmal respiratory failure PLAN ID noted cardiac management reviewed oxygen as needed monitor fluid status and diurese and monitor for change follow up on BNP follow up imaging for improvement supportive care follow up ABG imaging reviewed DVT prophylaxis impression, plan, and exam edited and reviewed in detail care discussed with RN Subjective Allergies: Coded Allergies: CODEINE (Verified Allergy, Unknown, 09/25/10) Subjective overnight events noted on diuretics stable ID noted and antibiotic rx noted respiratory care noted Objective Last 24 Hour Vital Signs Date Time Temp Pulse Resp B/P (MAP) Pulse Ox O2 Delivery O2 Flow Rate FiO2 02/11/18 08:32 88 02/11/18 08:10 80 18 Room Air 21 02/11/18 08:00 97.9 88 20 109/53 96 Room Air 97.9 88 02/11/18 04:00 97.9 73 18 100/62 95 Room Air 97.9 73 02/11/18 04:00 82 02/11/18 00:00 98.4 90 18 113/77 98 Room Air 98.4 90 02/11/18 00:00 81 02/10/18 20:33 110/64 02/10/18 20:33 97 110/64 02/10/18 20:00 84 02/10/18 20:00 98.1 84 18 112/70 97 Room Air 98.1 02/10/18 19:50 76 18 Room Air 21 02/10/18 16:00 98.0 81 20 104/60 98 Room Air 98.0 02/10/18 15:09 80 02/10/18 12:00 97.8 72 20 138/69 98 Room Air 97.8 02/10/18 11:51 78 02/10/18 08:58 78 02/10/18 08:57 122/72 02/10/18 08:57 78 122/72 Intake and Output 02/10/18 02/11/18 19:00 07:00 Intake Total 600 ml 200 ml Balance 600 ml 200 ml Intake Oral 600 ml 200 ml # Voids 2 2 # Bowel Movements 2 Objective WDWN NAD currently on NC oxygen reduced breath sounds bilaterally without rhonchi or wheeze [id number] without MRG NABS nontender no HSM no CC minimal edema nonfocal and alert Microbiology Date/Time Source Procedure Growth Status 02/09/18 04:00 Sputum Gram Stain - Final Complete 02/09/18 04:00 Sputum Culture - Final [facility] Usual Respiratory [facility] Complete Current Medications Medications (Trade) Dose Ordered Sig/Satnam Route PRN Reason Start Time Stop Time Status Last Admin Dose Admin Aspirin (ASA) 81 mg DAILY ORAL 02/08/18 09:00 03/09/18 08:59 02/11/18 08:32 Carvedilol (Coreg) 6.25 mg EVERY 12 HOURS ORAL 02/07/18 21:00 03/08/18 20:59 02/10/18 20:33 Dextrose (Dextrose 50%) 25 ml STAT PRN IV Hypoglycemia 02/07/18 19:00 03/09/18 18:59 Dextrose (Dextrose 50%) 50 ml STAT PRN IV Hypoglycemia 02/07/18 19:00 03/09/18 18:59 Digoxin (Lanoxin) 0.125 mg DAILY ORAL 02/08/18 09:00 03/09/18 08:59 02/11/18 08:32 Diphenoxylate HCl/ Atropine (Lomotil) 2.5 mg Q4H PRN ORAL Diarrhea 02/10/18 19:00 03/12/18 18:59 Diphenoxylate HCl/ Atropine (Lomotil) 2.5 mg Q4H PRN ORAL Diarrhea 02/11/18 08:15 03/13/18 08:14 Furosemide (Lasix) 40 mg BID IV 02/10/18 09:00 03/12/18 08:59 02/10/18 08:58 Guaifenesin/ Dextromethorphan (Robitussin DM Syrup) 10 ml Q4H PRN ORAL For Cough 02/08/18 08:00 03/10/18 07:59 02/08/18 18:13 Insulin Aspart (NovoLOG) BEFORE MEALS AND HS SUBQ 02/07/18 21:00 03/08/18 16:29 02/10/18 12:00 Lactobacillus Acidophilus (Culturelle) 1 tab THREE TIMES A DAY ORAL 02/10/18 19:00 03/12/18 18:59 02/11/18 08:32 Levofloxacin (Levaquin) 750 mg Q48H ORAL 02/08/18 09:00 02/15/18 23:59 02/10/18 08:58 Lidocaine (Lidoderm 5% PATCH) 1 patch DAILY TDERMAL 02/11/18 09:00 03/13/18 08:59 02/11/18 08:33 Lorazepam (Ativan) 1 mg Q6H PRN ORAL For Anxiety 02/09/18 08:45 02/16/18 08:44 02/09/18 08:52 Losartan Potassium (Cozaar) 50 mg EVERY 12 HOURS ORAL 02/07/18 21:00 03/09/18 08:59 02/10/18 20:33 Metformin HCl (Glucophage) 500 mg BID ORAL 02/08/18 09:00 03/08/18 17:59 02/11/18 08:32 Ondansetron HCl (Zofran) 4 mg Q6H PRN IVP Nausea & Vomiting 02/07/18 19:00 03/09/18 18:59 02/08/18 18:13 Spironolactone (Aldactone) 25 mg DAILY ORAL 02/08/18 09:00 03/09/18 08:59 02/10/18 08:57 CANDIDO SEBASTIAN February 11, 2018 08:39
--- NOTE | 2018-02-11 10:19 | Infectious Diseases Prog Note ---
Assessment/Plan Assessment/Plan antibiotics : levoquin A 1. pneumonia improving 2. CHF 3. leucocytosis resolved 4. gastric cancer 5. hypertension P 1. continue levoquin 4 more days 2. will follow up cultures Subjective ROS Limited/Unobtainable: Yes Allergies: Coded Allergies: CODEINE (Verified Allergy, Unknown, 09/25/10) Objective Vital Signs Last 24 Hour Vital Signs Date Time Temp Pulse Resp B/P (MAP) Pulse Ox O2 Delivery O2 Flow Rate FiO2 02/11/18 08:38 109/53 02/11/18 08:38 88 109/53 02/11/18 08:32 88 02/11/18 08:10 80 18 Room Air 21 02/11/18 08:00 97.9 88 20 109/53 96 Room Air 97.9 88 02/11/18 04:00 97.9 73 18 100/62 95 Room Air 97.9 73 02/11/18 04:00 82 02/11/18 00:00 98.4 90 18 113/77 98 Room Air 98.4 90 02/11/18 00:00 81 02/10/18 20:33 110/64 02/10/18 20:33 97 110/64 02/10/18 20:00 84 02/10/18 20:00 98.1 84 18 112/70 97 Room Air 98.1 02/10/18 19:50 76 18 Room Air 21 02/10/18 16:00 98.0 81 20 104/60 98 Room Air 98.0 02/10/18 15:09 80 02/10/18 12:00 97.8 72 20 138/69 98 Room Air 97.8 02/10/18 11:51 78 Height (Feet): 5 Height (Inches): 6.00 Weight (Pounds): 135 Respiratory/Chest: lungs clear Cardiovascular: normal rate, regular rhythm, no gallop/murmur Abdomen: soft, non tender Extremities: no edema Microbiology Date/Time Source Procedure Growth Status 02/09/18 04:00 Sputum Gram Stain - Final Complete 02/09/18 04:00 Sputum Culture - Final Christiana Albicans Usual Respiratory [facility] Complete Current Medications Medications (Trade) Dose Ordered Sig/Satnam Route PRN Reason Start Time Stop Time Status Last Admin Dose Admin Aspirin (ASA) 81 mg DAILY ORAL 02/08/18 09:00 03/09/18 08:59 02/11/18 08:32 Carvedilol (Coreg) 6.25 mg EVERY 12 HOURS ORAL 02/07/18 21:00 03/08/18 20:59 02/10/18 20:33 Dextrose (Dextrose 50%) 25 ml STAT PRN IV Hypoglycemia 02/07/18 19:00 03/09/18 18:59 Dextrose (Dextrose 50%) 50 ml STAT PRN IV Hypoglycemia 02/07/18 19:00 03/09/18 18:59 Digoxin (Lanoxin) 0.125 mg DAILY ORAL 02/08/18 09:00 03/09/18 08:59 02/11/18 08:32 Diphenoxylate HCl/ Atropine (Lomotil) 2.5 mg Q4H PRN ORAL Diarrhea 02/10/18 19:00 03/12/18 18:59 Diphenoxylate HCl/ Atropine (Lomotil) 2.5 mg Q4H PRN ORAL Diarrhea 02/11/18 08:15 03/13/18 08:14 Furosemide (Lasix) 40 mg BID IV 02/10/18 09:00 03/12/18 08:59 02/10/18 08:58 Guaifenesin/ Dextromethorphan (Robitussin DM Syrup) 10 ml Q4H PRN ORAL For Cough 02/08/18 08:00 03/10/18 07:59 02/08/18 18:13 Insulin Aspart (NovoLOG) BEFORE MEALS AND HS SUBQ 02/07/18 21:00 03/08/18 16:29 02/10/18 12:00 Lactobacillus Acidophilus (Culturelle) 1 tab THREE TIMES A DAY ORAL 02/10/18 19:00 03/12/18 18:59 02/11/18 08:32 Levofloxacin (Levaquin) 750 mg Q48H ORAL 02/08/18 09:00 02/15/18 23:59 02/10/18 08:58 Lidocaine (Lidoderm 5% PATCH) 1 patch DAILY TDERMAL 02/11/18 09:00 03/13/18 08:59 02/11/18 08:33 Lorazepam (Ativan) 1 mg Q6H PRN ORAL For Anxiety 02/09/18 08:45 02/16/18 08:44 02/09/18 08:52 Losartan Potassium (Cozaar) 50 mg EVERY 12 HOURS ORAL 02/07/18 21:00 03/09/18 08:59 02/10/18 20:33 Metformin HCl (Glucophage) 500 mg BID ORAL 02/08/18 09:00 03/08/18 17:59 02/11/18 08:32 Ondansetron HCl (Zofran) 4 mg Q6H PRN IVP Nausea & Vomiting 02/07/18 19:00 03/09/18 18:59 02/08/18 18:13 Spironolactone (Aldactone) 25 mg DAILY ORAL 02/08/18 09:00 03/09/18 08:59 02/10/18 08:57 ESAU DURON February 11, 2018 10:19
[2018-02-11 12:00] VITALS: BP 107/58
[2018-02-11 16:00] VITALS: BP 122/72
[2018-02-11] MEDS ORDERED: LORazepam 1mg tab ORAL PRN (18:09)
[2018-02-11] MEDS ORDERED: Guaifenesin/DM 10ml syrup ORAL PRN (18:10)
[2018-02-11 20:00] VITALS: BP 117/78
[2018-02-12] VITALS: BP 117/82
--- NOTE | 2018-02-12 02:45 | Progress Note ---
DATE: 02/11/2018 CARDIOLOGY PROGRESS NOTE SUBJECTIVE: The patient still feels weak and short of breath. Her legs are swollen again. Her diarrhea has improved today. OBJECTIVE: VITAL SIGNS: Blood pressure 109/53, pulse 88, and respirations 20. NECK: Supple. LUNGS: With few rales. CARDIAC: Regular rhythm and rate. Normal S1 and S2. A 1/6 systolic murmur at apex. ABDOMEN: Soft and nontender. EXTREMITIES: With 1+ dependent edema. IMPRESSION: 1. Acute on chronic systolic congestive heart failure. 2. Paroxysmal atrial and ventricular arrhythmias. 3. Cardiac defibrillator. 4. Healthcare-acquired pneumonia following prior hospitalizations. 5. Diarrhea due to antimicrobials and of stool softeners, now improving. 6. Moderate protein-calorie malnutrition. 7. Hypomagnesemia, corrected. 8. Lactic acidosis, resolved. PLAN: 1. Continue diuresis. 2. Optimize anti-failure regimen as tolerated by blood pressure. 3. Protein supplement. 4. Antimicrobials and respiratory hygiene. 5. Discharge planning. Miguel Mason M.D. DR: HINA JOB#: [id number] CC:
[2018-02-12 04:00] VITALS: BP 101/65
[2018-02-12] MEDS: NovoLOG Insulin Flexpen SUBQ SCH ×2 (06:30→11:25)
[2018-02-12 08:00] VITALS: BP 98/56
[2018-02-12] MEDS ORDERED: Aspirin Baby 81mg ORAL SCH (09:00)
[2018-02-12] MEDS: Losartan 50mg tab ORAL SCH (09:00)
[2018-02-12] MEDS ORDERED: Spironolactone 25mg tab ORAL SCH (09:00)
[2018-02-12] MEDS: Carvedilol 6.25mg Tab ORAL SCH (09:00)
[2018-02-12] MEDS ORDERED: Digoxin 0.125mg tab ORAL SCH (09:00)
[2018-02-12 09:28] LABS: BASOPHILS % (AUTO) 2.1 % (0.0-2.0); EOSINOPHILS % (AUTO) 2.5 % (0.0-3.0); HEMATOCRIT 29.3 % (37.0-47.0); HEMOGLOBIN 9.4 G/DL (12.0-16.0); LYMPHOCYTES % (AUTO) 25.4 % (20.0-45.0); MEAN CORPUSCULAR VOLUME 90 FL (80-99); MONOCYTES % (AUTO) 8.9 % (1.0-10.0); NEUTROPHILS % (AUTO) 61.1 % (45.0-75.0); PLATELET COUNT 115 K/UL (150-450); RED BLOOD COUNT 3.24 M/UL (4.20-5.40); RED CELL DISTRIBUTION WIDTH 14.3 % (11.6-14.8)
[2018-02-12] MEDS: metFORMIN 500mg tab ORAL SCH (09:28)
[2018-02-12] MEDS: Lactobacillus-GG tablet ORAL SCH ×2 (09:29→12:38)
[2018-02-12 09:38] LABS: ALANINE AMINOTRANSFERASE 18 U/L (12-78); ALBUMIN/GLOBULIN RATIO 0.7 (1.0-2.7); ALKALINE PHOSPHATASE 65 U/L (46-116); ANION GAP 7 mmol/L (5-15); ASPARTATE AMINO TRANSFERASE 20 U/L (15-37); BILIRUBIN,TOTAL 1.1 MG/DL (0.2-1.0); BLOOD UREA NITROGEN 27 mg/dL (7-18); CARBON DIOXIDE 28 MMOL/L (21-32); CHLORIDE 104 MMOL/L (98-107); CREATININE 0.9 MG/DL (0.55-1.30); POTASSIUM 3.7 MMOL/L (3.5-5.1); SODIUM 139 MMOL/L (136-145)
[2018-02-12 09:40] LABS: BILIRUBIN,DIRECT 0.4 MG/DL (0.0-0.3)
--- NOTE | 2018-02-12 11:45 | Infectious Diseases Prog Note ---
Assessment/Plan Assessment/Plan antibiotics : levoquin A 1. pneumonia improving 2. CHF 3. leucocytosis resolved 4. gastric cancer 5. hypertension P 1. continue levoquin 3 more days 2. will follow up cultures Subjective Constitutional: Denies: fever, chills Respiratory: Reports: shortness of breath - decreasing, dry cough - decreasing Gastrointestinal/Abdominal: Denies: nausea, vomiting, diarrhea Musculoskeletal: Denies: pain Allergies: Coded Allergies: CODEINE (Verified Allergy, Unknown, 09/25/10) Objective Vital Signs Last 24 Hour Vital Signs Date Time Temp Pulse Resp B/P (MAP) Pulse Ox O2 Delivery O2 Flow Rate FiO2 02/12/18 09:27 85 02/12/18 09:00 98/56 02/12/18 09:00 85 98/56 02/12/18 08:00 97.9 85 17 98/56 99 Room Air 97.9 02/12/18 04:00 97.9 88 20 101/65 97 Room Air 97.9 02/12/18 04:00 89 02/12/18 00:00 127 02/12/18 00:00 98.1 86 20 117/82 98 Room Air 98.1 02/11/18 20:52 114 117/78 02/11/18 20:51 117/78 02/11/18 20:00 97.5 95 21 117/78 97 Room Air 97.5 02/11/18 20:00 114 02/11/18 16:00 98.8 86 20 122/72 99 Room Air 98.8 86 02/11/18 16:00 90 02/11/18 12:00 98.7 85 22 107/58 97 Room Air 98.7 88 02/11/18 12:00 82 Height (Feet): 5 Height (Inches): 6.00 Weight (Pounds): 137 Respiratory/Chest: lungs clear Cardiovascular: normal rate, regular rhythm, no gallop/murmur Abdomen: soft, non tender Extremities: no edema Laboratory Tests Test 02/12/18 08:40 White Blood Count 6.0 K/UL (4.8-10.8) Red Blood Count 3.24 M/UL (4.20-5.40) L Hemoglobin 9.4 G/DL (12.0-16.0) L Hematocrit 29.3 % (37.0-47.0) L Mean Corpuscular Volume 90 FL (80-99) Mean Corpuscular Hemoglobin 29.1 PG (27.0-31.0) Mean Corpuscular Hemoglobin Concent 32.1 G/DL (32.0-36.0) Red Cell Distribution Width 14.3 % (11.6-14.8) Platelet Count 115 K/UL (150-450) L Mean Platelet Volume 13.2 FL (6.5-10.1) H Neutrophils (%) (Auto) 61.1 % (45.0-75.0) Lymphocytes (%) (Auto) 25.4 % (20.0-45.0) Monocytes (%) (Auto) 8.9 % (1.0-10.0) Eosinophils (%) (Auto) 2.5 % (0.0-3.0) Basophils (%) (Auto) 2.1 % (0.0-2.0) H Sodium Level 139 MMOL/L (136-145) Potassium Level 3.7 MMOL/L (3.5-5.1) Chloride Level 104 MMOL/L (98-107) Carbon Dioxide Level 28 MMOL/L (21-32) Anion Gap 7 mmol/L (5-15) Blood Urea Nitrogen 27 mg/dL (7-18) H Creatinine 0.9 MG/DL (0.55-1.30) Estimat Glomerular Filtration Rate mL/min (>60) Glucose Level 81 MG/DL (74-106) Calcium Level 9.0 MG/DL (8.5-10.1) Magnesium Level 1.7 MG/DL (1.8-2.4) L Total Bilirubin 1.1 MG/DL (0.2-1.0) H Direct Bilirubin 0.4 MG/DL (0.0-0.3) H Aspartate Amino Transf (AST/SGOT) 20 U/L (15-37) Alanine Aminotransferase (ALT/SGPT) 18 U/L (12-78) Alkaline Phosphatase 65 U/L (46-116) Pro-B-Type Natriuretic Peptide 2634 pg/mL (0-125) H Total Protein 7.6 G/DL (6.4-8.2) Albumin 3.0 G/DL (3.4-5.0) L Globulin 4.6 g/dL Albumin/Globulin Ratio 0.7 (1.0-2.7) L Current Medications Medications (Trade) Dose Ordered Sig/Satnam Route PRN Reason Start Time Stop Time Status Last Admin Dose Admin Aspirin (ASA) 81 mg DAILY ORAL 02/12/18 09:00 03/14/18 08:59 02/12/18 09:27 Carvedilol (Coreg) 6.25 mg EVERY 12 HOURS ORAL 02/11/18 21:00 03/12/18 20:59 02/11/18 20:52 Dextrose (Dextrose 50%) 25 ml STAT PRN IV Hypoglycemia BS 60-69mg/dl 02/11/18 18:08 03/13/18 18:07 Dextrose (Dextrose 50%) 50 ml STAT PRN IV Hypoglycemia BS less than 60mg 02/11/18 18:08 03/13/18 18:07 Digoxin (Lanoxin) 0.125 mg DAILY ORAL 02/12/18 09:00 03/13/18 08:59 02/12/18 09:27 Diphenoxylate HCl/ Atropine (Lomotil) 2.5 mg Q4H PRN ORAL Diarrhea 02/11/18 18:08 03/13/18 18:07 Furosemide (Lasix) 40 mg BID IV 02/11/18 18:00 03/13/18 17:59 02/11/18 18:16 Guaifenesin/ Dextromethorphan (Robitussin DM Syrup) 10 ml Q4H PRN ORAL For Cough 02/11/18 18:10 03/13/18 18:09 02/11/18 18:23 Insulin Aspart (NovoLOG) BEFORE MEALS AND HS SUBQ 02/11/18 21:00 03/12/18 16:29 02/12/18 11:25 Lactobacillus Acidophilus (Culturelle) 1 tab THREE TIMES A DAY ORAL 02/11/18 18:00 03/13/18 17:59 02/12/18 09:29 Levofloxacin (Levaquin) 750 mg Q48H ORAL 02/12/18 09:00 02/19/18 23:59 02/12/18 09:28 Lidocaine (Lidoderm 5% PATCH) 1 patch DAILY TDERMAL 02/12/18 09:00 03/14/18 08:59 02/12/18 09:28 Lorazepam (Ativan) 1 mg Q6H PRN ORAL For Anxiety 02/11/18 18:09 02/18/18 18:08 02/11/18 22:15 Losartan Potassium (Cozaar) 50 mg EVERY 12 HOURS ORAL 02/11/18 21:00 03/13/18 08:59 02/11/18 20:51 Metformin HCl (Glucophage) 500 mg BID ORAL 02/11/18 18:00 03/12/18 02:59 02/12/18 09:28 Ondansetron HCl (Zofran) 4 mg Q6H PRN IVP Nausea & Vomiting 02/11/18 18:09 03/13/18 18:08 Spironolactone (Aldactone) 25 mg DAILY ORAL 02/12/18 09:00 03/13/18 08:59 ESAU DURON February 12, 2018 11:45
[2018-02-12 12:00] VITALS: BP 133/60
[2018-02-12] MEDS ORDERED: Tubing IV Secondary IV ONE (15:27)
--- NOTE | 2018-02-12 19:30 | Progress Note ---
DATE: 02/12/2018 CARDIOLOGY PROGRESS NOTE SUBJECTIVE: The patient feels better. She still has some leg swelling, but she says that she cannot take any more diuretics than she already is. She feels better. She gets out with more diuretic pills. OBJECTIVE: VITAL SIGNS: Blood pressure ranging from 98/56 to 133/60, heart rate 80, respiratory rate 18, and afebrile. LUNGS: Clear. CARDIAC: Regular rhythm and rate. Normal S1 and S2. A 1/6 systolic apical murmur. ABDOMEN: Soft and nontender. EXTREMITIES: With trace edema. LABORATORY DATA: White count 6 and hemoglobin 9.4. Potassium 3.7, BUN 27, and creatinine 0.9. Magnesium 1.7. Albumin 3. Pro-natriuretic peptide is 2600, which has improved significantly. IMPRESSION: 1. Acute on chronic systolic congestive heart failure, now improved. 2. Hypomagnesemia. 3. Cardiac defibrillator. 4. Paroxysmal atrial and ventricular arrhythmias. 5. Mild protein-calorie malnutrition. 6. Type 2 diabetes mellitus. PLAN: The patient is stable to complete recovery at home on oral regimen. The patient's diuretics have been switched to oral therapy. The patient will be given electrolyte replacement as indicated including magnesium. The patient's diabetes parameters will be followed. Defibrillator will be interrogated in the next few weeks as an outpatient. Compliance with dietary restriction of sodium and daily diuretic therapy including monitoring of weight discussed. Miguel Mason M.D. DR: HINA JOB#: [id number] CC:
--- NOTE | 2018-02-15 10:10 | Diagnostic Imaging Report ---
APPROVED REPORT CPT Code: 11902 Present Symptoms Comments: BILATERAL LEGS PAIN. BILATERAL: Imaging reveals a patent deep venous system bilaterally. There is no evidence of thrombus within the femoral, popliteal or tibial segments. The greater saphenous veins are also within normal limits. Doppler indicates normal spontaneous flow within these segments.
--- NOTE | 2018-02-15 13:09 | Discharge Summary ---
Discharge Summary Discharge Summary Discharge Summary DATE OF ADMISSION: 02/06/2018 DATE OF DISCHARGE: 02/12/2018 REASON FOR ADMISSION: 82 years old female with a history of ischemic cardiomyopathy, AICD, hypertension, conduction system disease, paroxysmal atrial fibrillation, diabetes mellitus type 2, osteoarthritis, anxiety, was brought by family member with complaints of shortness of breath. Over the last 6 months she was living in [place] where she had multiply admissions. On several occasions she was discharged to nursing home facility. She recently returned back to [place]. Over the last few weeks she developed worsening cough, congestion and increased sputum production. Family brought her to emergency department for further evaluation. Upon evaluation in emergency department patient was found to be hypoxic, tachycardic, tachypneic, and short of breath . Patient required placement on BiPAP. EKG revealed atrial fibrillation with rapid ventricular response. WBC 12.0. Troponin negative , pro BNP -9782. Urinalysis with no evidence of UTI, chest x-ray with evidence of CHF and possible pneumonia. Hemoglobin 11.4 hematocrit 36. Patient was given Diltiazem with improvement in heart rate . Patient was admitted with diagnosis of atrial fibrillation with rapid ventricular response, CHFexacerbation, pneumonia, respiratory failure. CONSULTANTS: wire taper pulmonary Dr. Sauceda ID specialist Dr. Gunter HOSPITAL COURSE: Patient admitted to monitored floor. Patient started on cautious diuresis. Borough Coordinator closely followed. Cardiorenal parameters and volumes were closely monitored. Patient started on antiplatelet therapy along with a beta gem, digoxin . Diuresis provided with IV Lasix and potassium sparing Aldactone. No amiodarone started, since patient did not tolerated in the past. Patient with a history of gastric CA, currently in remission. Stool for occult blood was positive. Hemoglobin and hematocrit with trending down while in the hospital. Patient was on antiplatelet therapy, and decision for full anticoagulation weighing all risks and benefits will be further managed on outpatient. AICD interrogation scheduled to be done as outpatient. Heart rate controlled. Venous duplex bilateral lower extremities was negative. Blood pressure was stable with current regimen of beta gem and diuretic. Follow-up chest x-ray with improvement in CHF. Pro BNP from initial 9782 down to 2634. Renal parameters and electrolytes were closely monitored and corrected as needed, specifically hypomagnesemia. Infectious disease specialist closely followed. Blood culture were negative , influenza screen test was negative, sputum culture revealed Christiana , stool for C. difficile was negative. Antibiotic provided as per infectious disease specialist recommendations. Thread Winder closely followed. Patient initially was on the BiPAP. The next day ABG done on room air, stable. Patient was able to be weaned from the BiPAP. Supplemental oxygen provided as needed to keep pulse oximetry above 92% , pulmonary toilet provided as needed . Hemoglobin and hematocrit were closely monitored, no need for transfusion. Close monitoring of hemoglobin and hematocrit as outpatient. Blood sugar was managed with sliding scale of insulin, hemoglobin A1c at goal - 6.3 . Nutritional supplements provided to improve nutritional status. Pain management addressed. Supportive care provided. Patient was counseled on diabetic low-fat cardiac diet with salt restriction. Reinforced compliance with diet , medication regimen and outpatient follow-up , which was arranged .Patient was stable for discharge FINAL DIAGNOSES: Atrial fibrillation with rapid ventricular response, resolved Acute on chronic systolic congestive heart failure exacerbation, improved Pneumonia Hypertension Hypoxemic respiratory failure requiring BiPAP, resolved AICD Diabetes mellitus Type 2 History of gastric CA, in remission Anemia Hypomagnesemia Osteoarthritis Mild to moderate protein calorie malnutrition DISCHARGE MEDICATIONS: See Medication Reconciliation list. DISCHARGE INSTRUCTIONS: Patient was discharged home Follow up with primary care provider in one week. Follow-up with wire taper in next few weeks for interrogation of defibrillator. Reinforced compliance with the medication regimen , diet and daily weight. I have been assigned to dictate discharge summary for this account. I was not involved in the patient's management. Yoko Lewis NP ([place]) February 15, 2018 13:09
== END 2018-02-12 15:28 | disposition home or self-care (01) | DRG 291 ==
LOC: EMR 09:25 → EDBEDREQ 09:52 → 2W 09:56 → EDBEDREQ 11:42 → 2E 02-07 20:02 → UNDODISIN 02-11 17:00
PROC: 5A09357 Assistance with Respiratory Ventilation, Less than 24 Consecutive Hours, Continuous Positive Airway Pressure (ICD-10-PCS; principal; 2018-02-06)
DX: I13.0 Hypertensive heart and chronic kidney disease with heart failure and stage 1 through stage 4 chronic kidney disease, or unspecified chronic kidney disease (principal); J18.9 Pneumonia, unspecified organism; J96.91 Respiratory failure, unspecified with hypoxia; I50.23 Acute on chronic systolic (congestive) heart failure; E44.0 Moderate protein-calorie malnutrition; E87.2 Acidosis; E11.22 Type 2 diabetes mellitus with diabetic chronic kidney disease; N18.9 Chronic kidney disease, unspecified; K30 Functional dyspepsia; M19.90 Unspecified osteoarthritis, unspecified site; Z95.810 Presence of automatic (implantable) cardiac defibrillator; Z85.028 Personal history of other malignant neoplasm of stomach; D64.9 Anemia, unspecified; E83.42 Hypomagnesemia; I48.0 Paroxysmal atrial fibrillation; I25.5 Ischemic cardiomyopathy; Z88.6 Allergy status to analgesic agent; F03.90 Unspecified dementia, unspecified severity, without behavioral disturbance, psychotic disturbance, mood disturbance, and anxiety; D69.6 Thrombocytopenia, unspecified; R19.7 Diarrhea, unspecified; T50.995A Adverse effect of other drugs, medicaments and biological substances, initial encounter
CPT/HCPCS: 36415; 36600; 71045; 80053; 80162; 81003; 82248; 82550; 82803; 82962; 83036; 83605; 83735; 83880; 84484; 85007; 85025; 85610; 85730; 86710; 86900; 86901; 87040; 87070; 87205; 87324; 93005; 93970; 94640; 94664; 94760; 99285; 99291; J1815; J2405; J8499

== ENCOUNTER 2018-06-17 05:42 | Inpatient (IN) | payer MEDICARE, OTHER ==
[~2018-06-17] VITALS: Ht 162.6 cm; Wt 57.2 kg
[~2018-06-17 05:42] MED LIST changes: +AMLODIPINE BES2.5 MG ORAL; +ARTIFICIAL TEAR15 ML BOTH EYES; +ASPIRIN81 MG ORAL; +CARVEDILOL6.25 MG ORAL; +DIGOXIN125 MCG ORAL; +FUROSEMIDE40 MG ORAL; +GABAPENTIN300 MG ORAL; +LOPERAMIDE2 MG PO; +LOSARTAN POTASS25 MG ORAL; +MAPAP500 M2 PO; +MELATONIN5 M4 ORAL; +MISOPROSTOL100 MCG PO; +PANTOPRAZOLE SO40 MG ORAL
[2018-06-17 05:57] VITALS: BP 137/104
[2018-06-17 06:09] VITALS: BP 120/84
--- NOTE | 2018-06-17 06:09 | Emergency Room Report ---
History of Present Illness General Chief Complaint: Dyspnea/Respdistress Source: Patient, Family Member, Medical Record Present Illness HPI Is an 83-year-old female with history of ischemic cardiomyopathy, paroxysmal A. fib with AICD and on route toe. She presents with chief complaint of shortness of breath. Is a chronic issue but worse in last week. Also with pedal edema which is unchanged. Worse with exertion. Better with rest. Also complaining of feeling lightheaded. No syncope. No nausea no vomiting. No chest pain. Similar symptom in the past but multiple admissions in the past. Allergies: Coded Allergies: CODEINE (Verified Allergy, Unknown, 06/17/18) Patient History Past Medical History: see triage record, old chart reviewed, HTN, VA, CAD, CHF , AFib Past Surgical History: pacemaker Pertinent Family History: none Social History: Denies: smoking Last Menstrual Period: n/a Now: No Immunizations: other Reviewed Nursing Documentation: PMH: Agreed; PSxH: Agreed Nursing Documentation-PMH Hx Cardiac Problems: Yes - AICD Hx Hypertension: Yes Hx Pacemaker: Yes Hx COPD: Yes Hx Diabetes: Yes Hx Cancer: No Hx Gastrointestinal Problems: Yes Hx Neurological Problems: No Hx Seizures: Yes Hx Dizziness: Yes Hx Weakness: Yes Review of Systems Eye: Denies: eye pain, blurred vision ENT: Denies: ear pain, nose congestion, throat swelling Respiratory: Reports: shortness of breath; Denies: cough Cardiovascular: Reports: palpitations; Denies: chest pain Gastrointestinal: Denies: abdominal pain, diarrhea, nausea, vomiting Musculoskeletal: Denies: back pain, joint pain Skin: Denies: rash Neurological: Denies: headache, numbness Endocrine: Denies: increased thirst, increased urine Hematologic/Lymphatic: Denies: easy bruising All Other Systems: negative except mentioned in HPI Physical Exam Vital Signs Date Time Temp Pulse Resp B/P (MAP) Pulse Ox O2 Delivery O2 Flow Rate FiO2 06/17/18 05:54 97.0 159 16 137/104 100 Room Air 97.0 vitals with tachycardia Sp02 EP Interpretation: reviewed, normal General Appearance: well appearing, alert, mild distress Head: normocephalic, atraumatic Eyes: bilateral eye PERRL, bilateral eye EOMI ENT: hearing grossly normal, normal pharynx Neck: full range of motion, supple, no meningismus Respiratory: chest non-tender, lungs clear, normal breath sounds Cardiovascular #1: no murmur, tachycardia, irregularly irregular Gastrointestinal: normal bowel sounds, non tender, no mass, no organomegaly, no bruit, non-distended Musculoskeletal: back normal, gait/station normal, normal range of motion, swelling - 3+ pitting edema Neurologic: alert, oriented x3 Psychiatric: mood/affect normal Skin: warm/dry Procedures Critical Care Time Critical Care Time Critical care is mandated in this patient who presented with rapid afib. Patient require my urgent intervention to attenuate the risks of metabolic collapse which may lead to cardiovascular collapse and . Critical care time is 35 minutes excluding any reportable procedure. Critical care time included evaluation, multiple reevaluation, looking at old charts, interpreting laboratory and diagnostic data, discussing case with patient and family and consultants, and charting. Medical Decision Making Diagnostic Impression: Primary Impression: Rapid atrial fibrillation Additional Impression: CHF exacerbation Qualified Codes: I50.9 - Heart failure, unspecified ER Course Patient with rapid A. fib. Labs pending. She's already on Xarelto. Will admit for further workup. EKG Diagnostic Results Rate: tachycardiac Rhythm: other - afib ST Segments: other - NSST changes Rhythm Strip Diag. Results Rhythm Strip Time: 06:18 EP Interpretation: yes Rate: 105 Rhythm: no PVC's, no ectopy, other - A. fib Chest X-Ray Diagnostic Results Chest X-Ray Diagnostic Results : Chest X-Ray Ordered: Yes # of Views/Limited/Complete: 1 View Indication: Shortness of Breath EP Interpretation: Yes Interpretation: no consolidation, no pneumothorax, other - car to megaly, left pleural effusion, AICD Impression: Other - CM with left effusion Electronically Signed by: Luiz Shah MD Last Vital Signs Date Time Temp Pulse Resp B/P (MAP) Pulse Ox O2 Delivery O2 Flow Rate FiO2 06/17/18 05:57 97.0 16 137/104 100 Room Air 97.0 06/17/18 05:54 159 Status: improved Disposition: ADMITTED INPATIENT Condition: Serious LUIZ SHAH M.D. Jun 17, 2018 06:09
[2018-06-17] MEDS ORDERED: dilTIAZem HCl 25mg/5ml Inj IVP ONE ×2 (06:15→06:30)
[2018-06-17 06:19] LABS: EOSINOPHILS % (AUTO) 1.7 % (0.0-3.0); HEMATOCRIT 32.5 % (37.0-47.0); LYMPHOCYTES % (AUTO) 32.2 % (20.0-45.0); MEAN CORPUSCULAR VOLUME 87 FL (80-99); MONOCYTES % (AUTO) 10.3 % (1.0-10.0); NEUTROPHILS % (AUTO) 53.9 % (45.0-75.0); PLATELET COUNT 122 K/UL (150-450); RED BLOOD COUNT 3.71 M/UL (4.20-5.40); RED CELL DISTRIBUTION WIDTH 15.3 % (11.6-14.8)
[2018-06-17 06:30] VITALS: BP 130/86
[2018-06-17 06:32] LABS: ANION GAP 13 mmol/L (5-15); BLOOD UREA NITROGEN 24 mg/dL (7-18); CALCIUM 9.4 MG/DL (8.5-10.1); CARBON DIOXIDE 20 MMOL/L (21-32); CHLORIDE 105 MMOL/L (98-107); CREATININE 1.3 MG/DL (0.55-1.30); POTASSIUM 3.7 MMOL/L (3.5-5.1); SODIUM 138 MMOL/L (136-145)
[2018-06-17 06:34] LABS: INR 1.8 (0.9-1.1)
[2018-06-17 06:44] LABS: ALANINE AMINOTRANSFERASE 16 U/L (12-78); ALBUMIN 3.5 G/DL (3.4-5.0); ALBUMIN/GLOBULIN RATIO 0.6 (1.0-2.7); ALKALINE PHOSPHATASE 87 U/L (46-116); ASPARTATE AMINO TRANSFERASE 26 U/L (15-37); BILIRUBIN,TOTAL 2.7 MG/DL (0.2-1.0); CKMB 1.4 NG/ML (0.0-3.6); CREATINE KINASE 79 U/L (26-308)
[2018-06-17] MEDS ORDERED: UNOBMED (06:44)
[2018-06-17 06:51] LABS: BILIRUBIN,DIRECT 0.6 MG/DL (0.0-0.3)
[2018-06-17 07:15] VITALS: BP 125/105
[2018-06-17 07:38] LABS: APPEARANCE,URINE CLEAR; BILIRUBIN, URINE NEGATIVE (NEGATIVE); COLOR,URINE PALE YELLOW; GLUCOSE, URINE (UA) NEGATIVE (NEGATIVE); KETONES,URINE NEGATIVE (NEGATIVE); LEUKOCYTE ESTERASE ,URINE NEGATIVE (NEGATIVE); NITRITE,URINE NEGATIVE (NEGATIVE); PH,URINE 7 (4.5-8.0); PROTEIN,URINE 2+ (NEGATIVE); UROBILINOGEN,URINE NORMAL MG/DL (0.0-1.0)
--- NOTE | 2018-06-17 08:45 | Diagnostic Imaging Report ---
Indication: Dyspnea Comparison: 02/08/2018 A single view chest radiograph was obtained. Findings: Cardiomegaly is present and stable. Bilateral pleural effusion suspected. Pacemaker again noted. IMPRESSION: Similar findings. Suspected bilateral pleural effusions. Cardiomegaly
[2018-06-17] MEDS ORDERED: Metoprolol 5mg/5ml Inj IVPB SCH (12:18)
[2018-06-17] MEDS ORDERED: Spironolactone 25mg tab ORAL SCH (12:20)
[2018-06-17] MEDS ORDERED: NovoLOG Insulin Flexpen SUBQ SCH (16:50)
[2018-06-17 20:00] VITALS: BP 113/79
[2018-06-17] MEDS: NovoLOG Insulin Flexpen SUBQ SCH (21:00)
[2018-06-18 04:00] VITALS: BP 136/86
[2018-06-18] MEDS: NovoLOG Insulin Flexpen SUBQ SCH ×4 (05:58→20:40)
[2018-06-18 08:00] VITALS: BP 116/74
[2018-06-18] MEDS: Spironolactone 25mg tab ORAL SCH (08:45)
[2018-06-18 12:00] VITALS: BP 119/58
[2018-06-18] MEDS ORDERED: Gastrograffin 30ml ORAL PRN (13:00)
[2018-06-18] MEDS ORDERED: Gastrograffin 30ml RECTAL PRN (13:00)
[2018-06-18 16:00] VITALS: BP 130/81
[2018-06-18 20:00] VITALS: BP 120/74
--- NOTE | 2018-06-18 21:00 | History and Physical Report ---
DATE OF ADMISSION: 06/17/2018 REASON FOR ADMISSION: Abdominal pain, chest pain and shortness of breath. HISTORY OF PRESENT ILLNESS: The patient is a very pleasant 83-year-old female well known to me. She has a history of hypertensive heart disease, atherosclerotic cardiovascular disease, and ischemic cardiomyopathy. She has a history of congestive heart failure and an AICD. She is diabetic and has a history of gastric cancer status post resection. She presented from home with multiple complaints including chest pain, shortness of breath, and abdominal pain. According to the patient's family, the patient has been doing poorly. She has not been eating and has had persistent complaints of abdominal pain. Family believed that the patient has not been taking her medications and has not been compliant with her diet. On evaluation in the emergency room, the patient's vital signs were stable, but she was slightly tachycardic. Labs showed a normal white count and hemoglobin. Her bilirubin was elevated at 2.7. Natriuretic peptide level was 1800. Chest x-ray showed bilateral pleural effusions and cardiomegaly. The patient has been started on diuretic therapy and is now admitted for further evaluation and care. PAST MEDICAL HISTORY: As above. PAST SURGICAL HISTORY: History of gastric cancer resection and AICD. MEDICATIONS: Current medications, reconciled and reviewed. ALLERGIES: Codeine. FAMILY HISTORY: Noncontributory. SOCIAL HISTORY: Negative for tobacco, ethanol, or drugs. REVIEW OF SYSTEMS: GENERAL: No fevers or chills. HEENT: No headaches or visual changes. Mild dizziness. CARDIOPULMONARY: Positive chest pain and shortness of breath. Positive palpitations. GASTROINTESTINAL: Positive abdominal pain. No nausea. No vomiting. GENITOURINARY: No urgency or frequency. MUSCULOSKELETAL: No joint pain or swelling. NEUROLOGIC: No evidence of seizures. PHYSICAL EXAMINATION: GENERAL: The patient is a well-developed, no apparent distress. VITAL SIGNS: Temperature 98 degrees, pulse 66, respirations 18, and blood pressure 119/58. HEART: Regular rate and rhythm. LUNGS: Clear. ABDOMEN: Soft, nontender and nondistended. EXTREMITIES: No clubbing, cyanosis or edema. LABORATORY AND DIAGNOSTIC DATA: UA was normal. White count 7 and hemoglobin 10. Sodium 138, potassium 3.7, and creatinine was 1.3. Troponin 0.017. Natriuretic peptide level was 18,000. ASSESSMENT: This is a pleasant female admitted with complaints of shortness of breath, chest pain, and abdominal pain, suspect secondary to acute on chronic systolic heart failure exacerbation. 1. CHF exacerbation. 2. Abdominal pain, rule out recurrence of gastric cancer. 3. Anxiety. 4. Hypertension. 5. Diabetes. 6. History of ischemic cardiomyopathy. PLAN: Cautious diuresis. Monitor renal function. Antiemetics and pain medications as needed. CT scan of the abdomen. We will monitor the patient's LFTs. Palomo Frnakel M.D. DR: SEAN JOB#: [id number] CC:
[2018-06-19] VITALS: BP 144/86
[2018-06-19 04:00] VITALS: BP 133/89
--- NOTE | 2018-06-19 04:45 | Consultation ---
DATE OF CONSULTATION: 06/17/2018 CARDIOLOGY CONSULTATION CONSULTING PHYSICIAN: Miguel Mason M.D. REQUESTING PHYSICIAN: Palomo Frankel M.D. REASON FOR CONSULTATION: Congestive heart failure exacerbation. HISTORY OF PRESENT ILLNESS: This 83-year-old female has a longstanding history of nonischemic cardiomyopathy with systolic congestive heart failure and a cardiac defibrillator. She has a history of ventricular tachyarrhythmias, chronic atrial fibrillation, and hypertensive heart disease. She has had progressive swelling of her legs and decreasing exercise capacity due to shortness of breath. She was seen in my office about a week ago and had her diuretic regimen advanced. Since then, she has failed to improve and now presented with rapid heart rate. In the emergency room, notably atrial fibrillation with rapid ventricular response. The patient usually takes her medications regularly, but has missed diuretics at times. PAST MEDICAL HISTORY: Cardiac defibrillator, hypertensive heart disease, systolic congestive heart failure, gastric cancer status post resection, type 2 diabetes mellitus, hyperlipidemia, paroxysmal atrial fibrillation, nonsustained ventricular tachycardia, anemia of chronic kidney disease, chronic kidney disease, and diabetic neuropathy. ALLERGIES: Codeine. FAMILY HISTORY: Noncontributory. SOCIAL HISTORY: No record of smoking, alcohol, or substance abuse. MEDICATIONS: Prior to admission, reviewed and reconciled. REVIEW OF SYSTEMS: No fevers. No chills. No history of retinopathy. No loss of hearing. No history of asthma or blood clots in the legs. No history of seizure or stroke. Her diabetes is managed with oral therapy. She is on anti-lipid drugs. There is no history of thyroid disorder. Her most recent echocardiogram revealed ejection fraction of 25% to 35%. [id number] mitral and tricuspid regurgitation. She has a defibrillator. She has had atrial and ventricular arrhythmias. She has had prior cardioversion, but has failed to remain in sinus rhythm. She has not tolerated amiodarone in the past. PHYSICAL EXAMINATION: VITAL SIGNS: Blood pressure 121/89, pulse 108, respiratory rate 22, and afebrile. HEENT: Temporal wasting. Pale conjunctivae. Oropharynx clear. NECK: Supple. Jugular venous pressure elevated. LUNGS: Bilateral rales. CARDIAC: Irregularly irregular. Normal S1 and S2. A 1/6 systolic murmur at apex. Point of maximum impulse laterally displaced. Chest wall with ICD on the left. ABDOMEN: Soft and nontender. No guarding, rebound, or masses. EXTREMITIES: 3+ bilateral pitting edema pretibially up to the thighs 1+ NEUROLOGIC: Nonfocal. LABORATORY DATA: White count 7 and hemoglobin 10. Sodium 138, potassium 3.7, bicarbonate 20, BUN 24, creatinine 1.3, glucose 116, and albumin 3.5. Pro-natriuretic peptide 18,400. Troponin 0.017. IMPRESSION: 1. Paroxysmal atrial fibrillation with rapid ventricular response. 2. Acute on chronic systolic congestive heart failure. 3. Nonischemic cardiomyopathy with cardiac defibrillator. 4. History of gastric cancer. 5. Anemia of chronic kidney disease. 6. Type 2 diabetes mellitus with no signs of hyperglycemia presently. 7. Metabolic acidosis. 8. History of ventricular arrhythmias. PLAN: 1. Cardiac monitoring. 2. IV beta-gem. 3. Diuresis with intravenous loop diuretic. 4. Titrate and maximize anti-failure regimen. 5. Insulin coverage by sliding scale. 6. Reassess bleeding risk and consider cardioembolic prophylaxis with full anticoagulation although in the past this has been discontinued due to Hemoccult positive stools. Miguel Mason M.D. DR: KAILASH JOB#: [id number] CC:
--- NOTE | 2018-06-19 05:45 | Progress Note ---
DATE: 06/18/2018 CARDIOLOGY PROGRESS NOTE SUBJECTIVE: The patient is still short of breath. She is severely edematous. She is unable to move out of the bed without shortness of breath and her legs are too heavy to carry. OBJECTIVE: VITAL SIGNS: Afebrile, blood pressure 120/74, pulse 125, respiratory rate 20, and oxygen saturation 98% on 2 L. NECK: Jugular venous pressure greater than 10. LUNGS: With bilateral rales. CARDIAC: Irregularly irregular. Normal S1 and S2. A 1/6 systolic murmur at apex. ABDOMEN: Soft. EXTREMITIES: With 3 to 4+ bilateral pitting edema. Monitor, atrial fibrillation ventricular pacing by demand. IMPRESSION: 1. Acute on chronic systolic congestive heart failure, cardiogenic insufficiency. 2. Severe cardiomyopathy, cardiac defibrillator. 3. Paroxysmal atrial fibrillation. 4. Nonsustained ventricular tachycardia. 5. Type 2 diabetes mellitus. PLAN: 1. Continue cardiac monitoring. 2. Continue IV diuretics. 3. Alarcon catheter to assist with rapid diuresis until she is more mobile. 4. Titrate and maximize anti-failure regimen. 5. Hold anticoagulation in view of anemia history GI bleeding. 6. ICD interrogation has recently been done as an outpatient. Miguel Mason M.D. DR: KAILASH JOB#: [id number] CC:
[2018-06-19 06:07] LABS: BASOPHILS % (AUTO) 1.6 % (0.0-2.0); HEMATOCRIT 33.7 % (37.0-47.0); HEMOGLOBIN 10.6 G/DL (12.0-16.0); LYMPHOCYTES % (AUTO) 28.4 % (20.0-45.0); MEAN CORPUSCULAR VOLUME 87 FL (80-99); MONOCYTES % (AUTO) 6.1 % (1.0-10.0); NEUTROPHILS % (AUTO) 61.9 % (45.0-75.0); PLATELET COUNT 113 K/UL (150-450); RED BLOOD COUNT 3.88 M/UL (4.20-5.40); RED CELL DISTRIBUTION WIDTH 15.6 % (11.6-14.8); WHITE BLOOD COUNT 6.6 K/UL (4.8-10.8)
[2018-06-19] MEDS: NovoLOG Insulin Flexpen SUBQ SCH ×4 (06:16→21:34)
[2018-06-19 06:27] LABS: ALANINE AMINOTRANSFERASE 21 U/L (12-78); ALBUMIN 3.4 G/DL (3.4-5.0); ALBUMIN/GLOBULIN RATIO 0.6 (1.0-2.7); ALKALINE PHOSPHATASE 89 U/L (46-116); ANION GAP 11 mmol/L (5-15); ASPARTATE AMINO TRANSFERASE 27 U/L (15-37); BILIRUBIN,TOTAL 2.2 MG/DL (0.2-1.0); BLOOD UREA NITROGEN 25 mg/dL (7-18); CALCIUM 9.5 MG/DL (8.5-10.1); CARBON DIOXIDE 26 MMOL/L (21-32); CHLORIDE 103 MMOL/L (98-107); CREATININE 1.2 MG/DL (0.55-1.30); POTASSIUM 3.2 MMOL/L (3.5-5.1); SODIUM 140 MMOL/L (136-145)
[2018-06-19 07:00] LABS: BILIRUBIN,DIRECT 0.6 MG/DL (0.0-0.3)
--- NOTE | 2018-06-19 07:22 | General Progress Note ---
Assessment/Plan Problem List: (1) Chest pain (2) ACS (acute coronary syndrome) (3) Gastric cancer ICD Codes: C16.9 - Malignant neoplasm of stomach, unspecified SNOMED: 331466018 (4) Anemia ICD Codes: D64.9 - Anemia, unspecified SNOMED: 369908902 (5) Paroxysmal a-fib ICD Codes: I48.0 - Paroxysmal a-fib SNOMED: 145902912 (6) CHF exacerbation ICD Codes: I50.9 - Heart failure, unspecified SNOMED: 98141383 Status: stable, not improved Assessment/Plan iv lasix monitor renal fxn ct scan abd pending antiemetics antacids replace lytes Subjective ROS Limited/Unobtainable: No Constitutional: Reports: malaise, weakness HEENT: Reports: no symptoms Cardiovascular: Reports: no symptoms Respiratory: Reports: no symptoms Gastrointestinal/Abdominal: Reports: abdominal pain, nausea Genitourinary: Reports: no symptoms Neurologic/Psychiatric: Reports: no symptoms Endocrine: Reports: no symptoms Hematologic/Lymphatic: Reports: no symptoms Allergies: Coded Allergies: CODEINE (Verified Allergy, Unknown, 06/17/18) All Systems: reviewed and negative except above Subjective c/o abd pain. mild nausea. no chest pain +sob. CT scan ordered for today. Objective Last 24 Hour Vital Signs Date Time Temp Pulse Resp B/P (MAP) Pulse Ox O2 Delivery O2 Flow Rate FiO2 06/19/18 04:00 102 06/19/18 00:00 100 06/19/18 00:00 99.0 108 20 144/86 (105) 98 99.0 06/18/18 21:00 Nasal Cannula 2.0 06/18/18 20:00 97.9 96 20 120/74 (89) 100 97.9 06/18/18 20:00 125 06/18/18 16:00 96.3 97 18 130/81 (97) 100 96.3 06/18/18 16:00 92 06/18/18 12:00 90 06/18/18 12:00 97.7 66 18 119/58 (78) 98 97.7 06/18/18 09:00 Nasal Cannula 2.0 06/18/18 09:00 97 06/18/18 08:00 98.2 117 18 116/74 (88) 99 98.2 Intake and Output 06/18/18 06/19/18 19:00 07:00 Intake Total 450 ml Output Total 2200 ml Balance -1750 ml Intake Oral 450 ml Output Urine Total 2200 ml # Bowel Movements 1 Laboratory Tests 06/19/18 04:56: White Blood Count 6.6, Red Blood Count 3.88L, Hemoglobin 10.6L, Hematocrit 33.7L , Mean Corpuscular Volume 87, Mean Corpuscular Hemoglobin 27.3, Mean Corpuscular Hemoglobin Concent 31.5L, Red Cell Distribution Width 15.6H, Platelet Count 113L, Mean Platelet Volume 13.8H, Neutrophils (%) (Auto) 61.9, Lymphocytes (%) (Auto) 28.4, Monocytes (%) (Auto) 6.1, Eosinophils (%) (Auto) 2.0, Basophils (%) (Auto) 1.6, Sodium Level 140, Potassium Level 3.2L, Chloride Level 103, Carbon Dioxide Level 26, Anion Gap 11, Blood Urea Nitrogen 25H, Creatinine 1.2, Estimat Glomerular Filtration Rate , Glucose Level 87, Calcium Level 9.5, Magnesium Level 1.4L, Total Bilirubin 2.2H, Direct Bilirubin 0.6H, Aspartate Amino Transf (AST/SGOT) 27, Alanine Aminotransferase (ALT/SGPT) 21, Alkaline Phosphatase 89, Pro-B-Type Natriuretic Peptide 84698S, Total Protein 9.3H, Albumin 3.4, Globulin 5.9, Albumin/Globulin Ratio 0.6L Height (Feet): 5 Height (Inches): 4.00 Weight (Pounds): 130 General Appearance: WD/WN, alert Neck: supple Cardiovascular: normal rate Respiratory/Chest: decreased breath sounds Abdomen: normal bowel sounds, non tender, soft, no organomegaly Edema: trace edema 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
[2018-06-19 08:00] VITALS: BP 109/68
[2018-06-19] MEDS: Spironolactone 25mg tab ORAL SCH (09:07)
[2018-06-19 12:00] VITALS: BP 129/88
--- NOTE | 2018-06-19 12:07 | Diagnostic Imaging Report ---
INDICATION: Abdominal pain TECHNIQUE: Multiple, contiguous axial cuts of the abdomen and pelvis are obtained from the lung bases to the ischial tuberosities. Sagittal and coronal reformatted images are available. One or more of the following dose reduction techniques were used: automated exposure control, adjustment of the mA and/or kV according to patient size, use of iterative reconstruction technique. COMPARISON: CT dated 02/05/2017 FINDINGS: Enlarged heart size with pacemaker leads in place. New small pericardial effusion. New moderate left pleural effusion with near complete atelectasis of the left lower lobe. Small right pleural effusion. The liver and spleen are normal in size and free of mass lesions. Sludge in the gallbladder. The bile ducts and pancreas are normal. The adrenal gland are unremarkable. The kidneys are normal in size and contour. No stones, lesions or hydronephrosis. Small hiatal hernia. The appendix is unremarkable, as is the rest of the GI tract. Small free fluid. Atherosclerotic vascular disease. Alarcon catheter in bladder. Aorta is normal caliber. No adenopathy or extraluminal air. Degenerative changes of the lumbar spine. The osseous structures are otherwise normal. IMPRESSION: 1. Enlarged heart size with pacemaker leads in place. New small pericardial effusion. New moderate left pleural effusion with near complete atelectasis of the left lower lobe. Small right pleural effusion. 2. Alarcon catheter in bladder. 3. Small hiatal hernia. 4. Sludge in gallbladder. 5. Small amount of free fluid. CTDI: 11.9 mGy DLP: 532.95 mGycm
[2018-06-19 16:00] VITALS: BP 119/54
[2018-06-19 20:00] VITALS: BP 101/71
[2018-06-19] MEDS: Carvedilol 6.25mg Tab ORAL SCH (22:30)
[2018-06-19] MEDS ORDERED: Digoxin 0.125mg tab ORAL ONE (22:30)
[2018-06-19] MEDS ORDERED: Digoxin 0.5mg/2ml Inj IVP ONE (22:30)
[2018-06-19] MEDS: Losartan 50mg tab ORAL SCH (22:30)
--- NOTE | 2018-06-19 23:45 | Progress Note ---
DATE: 06/19/2018 CARDIOLOGY PROGRESS NOTE SUBJECTIVE: The patient has a Alarcon catheter now. She is diuresing well. She is still very acute short of breath, but slightly better. Her edema is still severe, but improving. Monitored rhythm atrial fibrillation. Episodes of rapid ventricular rate around 100. OBJECTIVE: VITAL SIGNS: Blood pressure 119/54, pulse 94, and respiratory rate 20. LUNGS: Bilateral rales. HEART: Irregularly irregular rhythm. Normal S1, S2. ABDOMEN: Soft, 2+ dependent lower extremity edema. LABORATORY AND DIAGNOSTIC DATA: CAT scan of the abdomen and pelvis reveals small left pleural effusion and pericardial effusion with sludge in gallbladder. IMPRESSION: 1. Acute on chronic systolic congestive heart failure. 2. Cardiac defibrillator. 3. Pericardial effusion of no hemodynamic significance. 4. Pleural effusion due to congestive heart failure. 5. Hypertensive cardiomyopathy. 6. Paroxysmal atrial fibrillation. 7. History of ventricular arrhythmias and sudden cardiac . PLAN: The patient does not want to take anticoagulation as she bled in the past. We will continue intravenous diuretics. We will advance anti-failure regimen with beta-gem and losartan. Further recommendations will follow. Miguel Mason M.D. DR: MACY JOB#: [id number] CC:
[2018-06-20] VITALS: BP 111/70
[2018-06-20 04:00] VITALS: BP 125/78
[2018-06-20] MEDS: NovoLOG Insulin Flexpen SUBQ SCH ×4 (06:30→20:45)
[2018-06-20 08:00] VITALS: BP 116/91
[2018-06-20] MEDS: Spironolactone 25mg tab ORAL SCH (09:59)
[2018-06-20] MEDS: Carvedilol 6.25mg Tab ORAL SCH ×2 (09:59→20:35)
[2018-06-20] MEDS: Losartan 50mg tab ORAL SCH (09:59)
[2018-06-20 10:38] LABS: ALANINE AMINOTRANSFERASE 19 U/L (12-78); ALBUMIN/GLOBULIN RATIO 0.5 (1.0-2.7); ALKALINE PHOSPHATASE 85 U/L (46-116); ANION GAP 10 mmol/L (5-15); ASPARTATE AMINO TRANSFERASE 31 U/L (15-37); BILIRUBIN,TOTAL 1.8 MG/DL (0.2-1.0); BLOOD UREA NITROGEN 22 mg/dL (7-18); CALCIUM 8.9 MG/DL (8.5-10.1); CARBON DIOXIDE 24 MMOL/L (21-32); CHLORIDE 102 MMOL/L (98-107); POTASSIUM 3.9 MMOL/L (3.5-5.1); SODIUM 136 MMOL/L (136-145)
[2018-06-20 10:59] LABS: BILIRUBIN,DIRECT 0.5 MG/DL (0.0-0.3)
--- NOTE | 2018-06-20 11:21 | General Progress Note ---
Assessment/Plan Problem List: (1) Chest pain (2) ACS (acute coronary syndrome) (3) Gastric cancer ICD Codes: C16.9 - Malignant neoplasm of stomach, unspecified SNOMED: 750064369 (4) Anemia ICD Codes: D64.9 - Anemia, unspecified SNOMED: 220771058 (5) Paroxysmal a-fib ICD Codes: I48.0 - Paroxysmal a-fib SNOMED: 807873832 (6) CHF exacerbation ICD Codes: I50.9 - Heart failure, unspecified SNOMED: 11630839 Status: stable, progressing Assessment/Plan iv lasix monitor renal fxn antiemetics antacids monitor cxr Subjective ROS Limited/Unobtainable: No Constitutional: Reports: malaise, weakness HEENT: Reports: no symptoms Cardiovascular: Reports: no symptoms Respiratory: Reports: cough Gastrointestinal/Abdominal: Reports: abdominal pain Genitourinary: Reports: no symptoms Neurologic/Psychiatric: Reports: no symptoms Endocrine: Reports: no symptoms Hematologic/Lymphatic: Reports: no symptoms Allergies: Coded Allergies: CODEINE (Verified Allergy, Unknown, 06/17/18) All Systems: reviewed and negative except above Subjective c/o abd pain. mild nausea. no chest pain +sob. CT scan noted- +pleural effusion. small pericardial effusion Objective Last 24 Hour Vital Signs Date Time Temp Pulse Resp B/P (MAP) Pulse Ox O2 Delivery O2 Flow Rate FiO2 06/20/18 09:59 116/91 06/20/18 09:59 135 116/91 06/20/18 09:00 Nasal Cannula 2.0 06/20/18 08:00 97.3 124 20 116/91 (99) 96 97.3 06/20/18 08:00 135 06/20/18 04:00 146 06/20/18 04:00 98.1 131 22 125/78 (94) 100 98.1 06/20/18 00:00 99.9 96 20 111/70 (84) 99 99.9 06/20/18 00:00 103 06/19/18 22:44 99 06/19/18 21:00 Nasal Cannula 2.0 06/19/18 20:00 97.2 143 18 101/71 (81) 96 97.2 06/19/18 20:00 115 06/19/18 16:00 97.9 94 20 119/54 (75) 96 97.9 9/8/18 16:00 96 06/19/18 12:00 99 06/19/18 12:00 98.2 96 18 129/88 (102) 99 98.2 Intake and Output 06/19/18 06/20/18 19:00 07:00 Intake Total 240 ml 200 ml Output Total 4600 ml 300 ml Balance -4360 ml -100 ml Intake Oral 240 ml 200 ml Output Urine Total 4600 ml 300 ml # Bowel Movements 1 Laboratory Tests 06/20/18 08:25: Sodium Level 136, Potassium Level 3.9, Chloride Level 102, Carbon Dioxide Level 24, Anion Gap 10, Blood Urea Nitrogen 22H, Creatinine 1.0, Estimat Glomerular Filtration Rate , Glucose Level 129H, Calcium Level 8.9, Magnesium Level 1.9, Total Bilirubin 1.8H, Direct Bilirubin 0.5H, Aspartate Amino Transf (AST/SGOT) 31, Alanine Aminotransferase (ALT/SGPT) 19, Alkaline Phosphatase 85, Total Protein 8.6H, Albumin 3.0L, Globulin 5.6, Albumin/Globulin Ratio 0.5L Height (Feet): 5 Height (Inches): 4.00 Weight (Pounds): 130 Objective General Appearance: WD/WN, alert Neck: supple Cardiovascular: normal rate Respiratory/Chest: decreased breath sounds Abdomen: normal bowel sounds, non tender, soft, no organomegaly Edema: trace edema 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
[2018-06-20 12:00] VITALS: BP 110/52
[2018-06-20 16:00] VITALS: BP 90/60
[2018-06-20 20:00] VITALS: BP 102/49
[2018-06-21] VITALS: BP 93/55
[2018-06-21] MEDS: traMADol 50mg tab ORAL PRN (00:11)
[2018-06-21 04:00] VITALS: BP 95/43
[2018-06-21] MEDS: NovoLOG Insulin Flexpen SUBQ SCH ×4 (06:08→21:00)
[2018-06-21 08:00] VITALS: BP 90/55
[2018-06-21 08:56] LABS: ALANINE AMINOTRANSFERASE 20 U/L (12-78); ALBUMIN 3.1 G/DL (3.4-5.0); ALBUMIN/GLOBULIN RATIO 0.6 (1.0-2.7); ALKALINE PHOSPHATASE 82 U/L (46-116); ANION GAP 6 mmol/L (5-15); ASPARTATE AMINO TRANSFERASE 23 U/L (15-37); BILIRUBIN,TOTAL 1.9 MG/DL (0.2-1.0); BLOOD UREA NITROGEN 26 mg/dL (7-18); CALCIUM 8.9 MG/DL (8.5-10.1); CARBON DIOXIDE 30 MMOL/L (21-32); CHLORIDE 103 MMOL/L (98-107); POTASSIUM 3.9 MMOL/L (3.5-5.1); SODIUM 139 MMOL/L (136-145)
[2018-06-21 08:59] LABS: BILIRUBIN,DIRECT 0.6 MG/DL (0.0-0.3)
[2018-06-21] MEDS: Losartan 50mg tab ORAL SCH (09:00)
[2018-06-21] MEDS: Carvedilol 6.25mg Tab ORAL SCH ×2 (09:00→21:16)
[2018-06-21] MEDS: Spironolactone 25mg tab ORAL SCH (10:05)
[2018-06-21 12:00] VITALS: BP 103/59
--- NOTE | 2018-06-21 12:58 | General Progress Note ---
Assessment/Plan Problem List: (1) Chest pain (2) ACS (acute coronary syndrome) (3) Gastric cancer ICD Codes: C16.9 - Malignant neoplasm of stomach, unspecified SNOMED: 765423264 (4) Anemia ICD Codes: D64.9 - Anemia, unspecified SNOMED: 400085273 (5) Paroxysmal a-fib ICD Codes: I48.0 - Paroxysmal a-fib SNOMED: 969815364 (6) CHF exacerbation ICD Codes: I50.9 - Heart failure, unspecified SNOMED: 81199537 Status: stable, progressing Assessment/Plan cont iv lasix monitor renal fxn/volume status/bp antiemetics antacids monitor cxr check labs Subjective ROS Limited/Unobtainable: No Constitutional: Reports: malaise, weakness HEENT: Reports: no symptoms Cardiovascular: Reports: edema Respiratory: Reports: cough, shortness of breath Gastrointestinal/Abdominal: Reports: abdominal pain, nausea Genitourinary: Reports: no symptoms Neurologic/Psychiatric: Reports: no symptoms Endocrine: Reports: no symptoms Hematologic/Lymphatic: Reports: no symptoms Allergies: Coded Allergies: CODEINE (Verified Allergy, Unknown, 06/17/18) Subjective same. c/o abd pain, edema and sob. not any better. denies chest pain On iv lasix. Objective Last 24 Hour Vital Signs Date Time Temp Pulse Resp B/P (MAP) Pulse Ox O2 Delivery O2 Flow Rate FiO2 06/21/18 09:00 Nasal Cannula 2.0 06/21/18 09:00 90/55 06/21/18 09:00 89 90/55 06/21/18 08:00 97.9 89 18 90/55 (67) 100 97.9 06/21/18 04:00 98.0 85 19 95/43 (60) 98 98.0 06/21/18 04:00 95 06/21/18 00:00 98.1 121 17 93/55 (68) 100 98.1 06/21/18 00:00 121 06/20/18 21:00 Nasal Cannula 2.0 06/20/18 20:35 81 102/49 06/20/18 20:00 97.7 81 18 102/49 (66) 100 97.7 06/20/18 20:00 91 06/20/18 16:00 87 06/20/18 16:00 97.5 76 20 90/60 (70) 96 97.5 Intake and Output 06/20/18 06/21/18 19:00 07:00 Intake Total 360 ml Output Total 1800 ml 1300 ml Balance -1440 ml -1300 ml Intake Oral 360 ml Output Urine Total 1800 ml 1300 ml # Bowel Movements 1 Laboratory Tests 06/21/18 07:20: Sodium Level 139, Potassium Level 3.9, Chloride Level 103, Carbon Dioxide Level 30, Anion Gap 6, Blood Urea Nitrogen 26H, Creatinine 1.0, Estimat Glomerular Filtration Rate , Glucose Level 82, Calcium Level 8.9, Magnesium Level 1.9, Total Bilirubin 1.9H, Direct Bilirubin 0.6H, Aspartate Amino Transf (AST/SGOT) 23, Alanine Aminotransferase (ALT/SGPT) 20, Alkaline Phosphatase 82, Total Protein 8.5H, Albumin 3.1L, Globulin 5.4, Albumin/Globulin Ratio 0.6L Height (Feet): 5 Height (Inches): 4.00 Weight (Pounds): 130 Objective General Appearance: WD/WN, alert Neck: supple Cardiovascular: normal rate Respiratory/Chest: decreased breath sounds Abdomen: normal bowel sounds, non tender, soft, no organomegaly Edema: trace edema 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
[2018-06-21 16:00] VITALS: BP 101/73
--- NOTE | 2018-06-21 16:03 | Diagnostic Imaging Report ---
Indication: Shortness of breath Technique: One view of the chest Comparison: 06/17/2018 Findings: Again demonstrated is a left pleural effusion, appearing grossly unchanged. The lungs and right pleural space appear clear. The heart remains enlarged. Left chest AICD is again demonstrated Impression: Unchanged left pleural effusion, since prior exam of 4 days earlier Stable cardiomegaly
[2018-06-21 20:00] VITALS: BP 111/74
[2018-06-22] VITALS: BP 111/76
[2018-06-22] MEDS ORDERED: Digoxin 0.5mg/2ml Inj IVP ONE
--- NOTE | 2018-06-22 01:15 | Progress Note ---
DATE: 06/20/2018 CARDIOLOGY PROGRESS NOTE Late entry for 06/20/2018. SUBJECTIVE: The patient has episodes of abdominal pain. Her CAT scan was unremarkable for any abdominal pathology as noted yesterday. She does have a small pleural and pericardial effusion of no hemodynamic significance. The patient continues to diurese well on intravenous Lasix with catheter in place. OBJECTIVE: VITAL SIGNS: Blood pressure 116/91, pulse 135, respirations 20, and afebrile. Monitored rhythm, atrial fibrillation. LUNGS: Coarse breath sounds. Scattered rales. HEART: Irregularly irregular rhythm. Normal S1, S2. A 1/6 systolic apical murmur. ABDOMEN: Soft. EXTREMITIES: A 2+ to 3+ dependent edema persists. LABORATORY DATA: Sodium 136, potassium 3.9, bicarbonate 24, BUN 22, and creatinine 1. Magnesium 1.9. Albumin 3. IMPRESSION: 1. Acute on chronic systolic congestive heart failure. 2. Hypomagnesemia, corrected. 3. Mild protein-calorie malnutrition. 4. Diabetes mellitus type 2 with gastroparesis. 5. History of gastric cancer with no signs of recurrence. 6. Anemia due to iron deficiency and chronic disease. 7. Paroxysmal atrial fibrillation with rapid ventricular response. 8. Cardiac defibrillator. 9. History of ventricular tachycardia. PLAN: 1. Chest x-ray to be repeated. 2. Continue diuresis and optimization of anti-failure regimen with addition of therapy for rate control added. Miguel Mason M.D. DR: HINA JOB#: [id number] CC:
--- NOTE | 2018-06-22 02:30 | Progress Note ---
DATE: 06/21/2018 CARDIOLOGY PROGRESS NOTE SUBJECTIVE: The patient continues to respond well to IV diuretic therapy. She is negative over 8 liters since admission. OBJECTIVE: VITAL SIGNS: Blood pressure 111/74, pulse 108, respiratory rate 20, and afebrile. LUNGS: With diminished breath sounds. CARDIAC: Irregularly irregular. Normal S1 and S2. ABDOMEN: Soft. EXTREMITIES: With 1 to 2+ dependent edema. LABORATORY AND DIAGNOSTIC DATA: Chest x-ray reveals persistent left effusion with ICD. Laboratories notable for magnesium 1.9, potassium 3.9, BUN 26, and creatinine 1. Albumin 3.1. IMPRESSION: 1. Acute on chronic systolic congestive heart failure. 2. Mild protein-calorie malnutrition. 3. Hypomagnesemia, corrected. 4. 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 5. Paroxysmal atrial fibrillation with rapid ventricular response. 6. Cardiac defibrillator with history of ventricular tachycardia. PLAN: 1. Continue diuresis until euvolemic then transition to oral therapy. 2. Advance beta-blockade. 3. Titrate afterload reduction with losartan. 4. Monitor electrolytes and renal parameters. Miguel Mason M.D. DR: BRENDAN JOB#: [id number] CC:
[2018-06-22 04:00] VITALS: BP 112/77
[2018-06-22] MEDS: NovoLOG Insulin Flexpen SUBQ SCH ×4 (06:30→21:00)
[2018-06-22 08:00] VITALS: BP 97/63
[2018-06-22 08:00] LABS: BASOPHILS % (AUTO) 1.9 % (0.0-2.0); EOSINOPHILS % (AUTO) 1.6 % (0.0-3.0); HEMATOCRIT 30.1 % (37.0-47.0); HEMOGLOBIN 9.1 G/DL (12.0-16.0); LYMPHOCYTES % (AUTO) 21.3 % (20.0-45.0); MEAN CORPUSCULAR VOLUME 86 FL (80-99); MONOCYTES % (AUTO) 10.3 % (1.0-10.0); NEUTROPHILS % (AUTO) 64.8 % (45.0-75.0); PLATELET COUNT 140 K/UL (150-450); RED BLOOD COUNT 3.49 M/UL (4.20-5.40); RED CELL DISTRIBUTION WIDTH 15.2 % (11.6-14.8); WHITE BLOOD COUNT 6.2 K/UL (4.8-10.8)
[2018-06-22 08:47] LABS: ALANINE AMINOTRANSFERASE 21 U/L (12-78); ALBUMIN 3.4 G/DL (3.4-5.0); ALBUMIN/GLOBULIN RATIO 0.6 (1.0-2.7); ALKALINE PHOSPHATASE 84 U/L (46-116); ANION GAP 8 mmol/L (5-15); ASPARTATE AMINO TRANSFERASE 28 U/L (15-37); BILIRUBIN,TOTAL 2.2 MG/DL (0.2-1.0); BLOOD UREA NITROGEN 30 mg/dL (7-18); CALCIUM 8.9 MG/DL (8.5-10.1); CARBON DIOXIDE 28 MMOL/L (21-32); CHLORIDE 101 MMOL/L (98-107); CREATININE 1.1 MG/DL (0.55-1.30); POTASSIUM 4.5 MMOL/L (3.5-5.1); SODIUM 137 MMOL/L (136-145)
[2018-06-22 08:53] LABS: BILIRUBIN,DIRECT 0.7 MG/DL (0.0-0.3)
[2018-06-22] MEDS: Carvedilol 6.25mg Tab ORAL SCH ×2 (09:00→21:00)
[2018-06-22] MEDS: Losartan 50mg tab ORAL SCH (09:00)
[2018-06-22] MEDS: Spironolactone 25mg tab ORAL SCH (09:33)
[2018-06-22] MEDS: Digoxin 0.125mg tab ORAL SCH (09:34)
[2018-06-22 10:04] LABS: APPEARANCE,URINE CLOUDY; BILIRUBIN, URINE NEGATIVE (NEGATIVE); COLOR,URINE BROWN; GLUCOSE, URINE (UA) NEGATIVE (NEGATIVE); KETONES,URINE NEGATIVE (NEGATIVE); LEUKOCYTE ESTERASE ,URINE 3+ (NEGATIVE); NITRITE,URINE POSITIVE (NEGATIVE); PH,URINE 7 (4.5-8.0); PROTEIN,URINE 4+ (NEGATIVE); UROBILINOGEN,URINE 1 MG/DL (0.0-1.0)
[2018-06-22 12:00] VITALS: BP 111/67
--- NOTE | 2018-06-22 15:44 | General Progress Note ---
Assessment/Plan Problem List: (1) Chest pain (2) ACS (acute coronary syndrome) (3) Gastric cancer ICD Codes: C16.9 - Malignant neoplasm of stomach, unspecified SNOMED: 233444512 (4) Anemia ICD Codes: D64.9 - Anemia, unspecified SNOMED: 439579426 (5) Paroxysmal a-fib ICD Codes: I48.0 - Paroxysmal a-fib SNOMED: 779146959 (6) CHF exacerbation ICD Codes: I50.9 - Heart failure, unspecified SNOMED: 02651561 Status: stable, progressing Assessment/Plan cont iv lasix monitor renal fxn/volume status/bp antiemetics antacids monitor cxr monitor labs follow up urine culture iv abx Subjective ROS Limited/Unobtainable: No Constitutional: Reports: malaise, weakness HEENT: Reports: no symptoms Cardiovascular: Reports: no symptoms Respiratory: Reports: cough Gastrointestinal/Abdominal: Reports: abdominal pain Genitourinary: Reports: no symptoms Neurologic/Psychiatric: Reports: no symptoms Endocrine: Reports: no symptoms Hematologic/Lymphatic: Reports: no symptoms Allergies: Coded Allergies: CODEINE (Verified Allergy, Unknown, 06/17/18) All Systems: reviewed and negative except above Subjective no new complaints. slept in the chair last night. still with some sob. still with some edema. both improving. NPA improving. still with abd pain cxr shows persistent left pleural effusion Objective Last 24 Hour Vital Signs Date Time Temp Pulse Resp B/P (MAP) Pulse Ox O2 Delivery O2 Flow Rate FiO2 06/22/18 12:00 97.2 83 20 111/67 (82) 98 97.2 06/22/18 09:34 84 06/22/18 09:00 Nasal Cannula 2.0 06/22/18 09:00 84 97/63 06/22/18 09:00 97/63 06/22/18 08:00 98.0 84 20 97/63 (74) 97 98.0 06/22/18 04:00 98.1 121 20 112/77 (89) 98 98.1 06/22/18 04:00 103 06/22/18 00:00 98.4 132 20 111/76 (88) 97 98.4 06/22/18 00:00 144 06/22/18 00:00 138 06/21/18 21:16 149 111/74 06/21/18 21:00 Nasal Cannula 2.0 06/21/18 20:00 98.1 149 20 111/74 (86) 98 98.1 06/21/18 20:00 108 06/21/18 16:00 100 06/21/18 16:00 97.0 120 18 101/73 (82) 98 97.0 Intake and Output 06/21/18 06/22/18 19:00 07:00 Intake Total 360 ml Output Total 300 ml Balance 60 ml Intake Oral 360 ml Output Urine Total 300 ml # Bowel Movements 3 Laboratory Tests 06/22/18 07:25: White Blood Count 6.2, Red Blood Count 3.49L, Hemoglobin 9.1L, Hematocrit 30.1L , Mean Corpuscular Volume 86, Mean Corpuscular Hemoglobin 26.0L, Mean Corpuscular Hemoglobin Concent 30.1L, Red Cell Distribution Width 15.2H, Platelet Count 140L, Mean Platelet Volume 10.6H, Neutrophils (%) (Auto) 64.8, Lymphocytes (%) (Auto) 21.3, Monocytes (%) (Auto) 10.3H, Eosinophils (%) (Auto) 1.6, Basophils (%) (Auto) 1.9, Sodium Level 137, Potassium Level 4.5, Chloride Level 101, Carbon Dioxide Level 28, Anion Gap 8, Blood Urea Nitrogen 30H, Creatinine 1.1, Estimat Glomerular Filtration Rate , Glucose Level 103, Calcium Level 8.9, Magnesium Level 1.8, Total Bilirubin 2.2H, Direct Bilirubin 0.7H, Aspartate Amino Transf (AST/SGOT) 28, Alanine Aminotransferase (ALT/SGPT) 21, Alkaline Phosphatase 84, Pro-B-Type Natriuretic Peptide 5572H, Total Protein 8.9H, Albumin 3.4, Globulin 5.5, Albumin/Globulin Ratio 0.6L 06/22/18 09:45: Urine Color Brown, Urine Appearance Cloudy, Urine pH 7, Urine Specific [place] 1.010, Urine Protein 4+H, Urine Glucose (UA) Negative, Urine Ketones Negative, Urine Blood 5+H, Urine Nitrite PositiveH, Urine Bilirubin Negative, Urine Urobilinogen 1H, Urine Leukocyte Esterase 3+H, Urine RBC TntcH, Urine WBC TntcH , Urine Squamous Epithelial Cells None, Urine Bacteria Occasional Height (Feet): 5 Height (Inches): 4.00 Weight (Pounds): 130 Objective General Appearance: WD/WN, alert Neck: supple Cardiovascular: normal rate Respiratory/Chest: decreased breath sounds Abdomen: normal bowel sounds, non tender, soft, no organomegaly Edema: trace edema 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
[2018-06-22 16:00] VITALS: BP 112/70
[2018-06-22] MEDS: cefTRIAXone 1gm/D5W 55ml IVPB SCH ×2 (17:53)
[2018-06-22 20:00] VITALS: BP 121/94
[2018-06-23] VITALS: BP 124/87
[2018-06-23 04:00] VITALS: BP 109/64
--- NOTE | 2018-06-23 05:45 | Progress Note ---
DATE: 06/22/2018 CARDIOLOGY PROGRESS NOTE SUBJECTIVE: The patient refused her Lasix yesterday, thinks she got too dry. She is less short of breath, but still has leg swelling. OBJECTIVE: VITAL SIGNS: Blood pressure 121/94, pulse 78, and respiratory rate 18. Monitor atrial fibrillation with ventricular pacing by demand. LUNGS: Good breath sounds. HEART: Irregularly irregular rhythm. Normal S1, paradoxically split S2. ABDOMEN: Soft. EXTREMITIES: Trace edema. LABORATORY AND DIAGNOSTIC DATA: Chest x-ray yesterday revealed left pleural effusion. Potassium is 4.5, BUN 30 and creatinine 1.1. Pro-natriuretic peptide has decreased from 18,000 to 5500. Albumin 3.4. White count 6.2 and hemoglobin 9.1. Urinalysis with too numerous to count white cells. IMPRESSION: 1. Healthcare acquired urinary tract infection due to indwelling catheter. 2. Acute on chronic systolic congestive heart failure, improved. 3. Paroxysmal atrial fibrillation, now rate controlled. 4. Cardiac defibrillator. 5. Anemia. 6. History of GI bleed and history of gastric cancer. 7. Hypertensive heart disease. PLAN: 1. Decrease diuretic dosing. 2. Antibiotics. 3. Discontinue Alarcon catheter. 4. Advance antihypertensives. 5. Follow up laboratory studies with close monitoring of renal function. Miguel Mason M.D. DR: BRENDAN JOB#: [id number] CC:
[2018-06-23] MEDS: NovoLOG Insulin Flexpen SUBQ SCH ×3 (06:25→16:49)
[2018-06-23 08:00] VITALS: BP 113/66
[2018-06-23 08:20] LABS: BASOPHILS % (AUTO) 1.9 % (0.0-2.0); EOSINOPHILS % (AUTO) 2.3 % (0.0-3.0); HEMATOCRIT 28.1 % (37.0-47.0); HEMOGLOBIN 8.6 G/DL (12.0-16.0); LYMPHOCYTES % (AUTO) 23.5 % (20.0-45.0); MEAN CORPUSCULAR VOLUME 87 FL (80-99); MONOCYTES % (AUTO) 11.4 % (1.0-10.0); NEUTROPHILS % (AUTO) 60.9 % (45.0-75.0); PLATELET COUNT 133 K/UL (150-450); RED BLOOD COUNT 3.23 M/UL (4.20-5.40); WHITE BLOOD COUNT 5.7 K/UL (4.8-10.8)
[2018-06-23] MEDS: cefTRIAXone 1gm/D5W 55ml IVPB SCH ×2 (09:00)
[2018-06-23 09:01] LABS: ALANINE AMINOTRANSFERASE 18 U/L (12-78); ALBUMIN 3.1 G/DL (3.4-5.0); ALBUMIN/GLOBULIN RATIO 0.6 (1.0-2.7); ALKALINE PHOSPHATASE 84 U/L (46-116); ANION GAP 6 mmol/L (5-15); ASPARTATE AMINO TRANSFERASE 24 U/L (15-37); BILIRUBIN,TOTAL 1.6 MG/DL (0.2-1.0); BLOOD UREA NITROGEN 26 mg/dL (7-18); CALCIUM 9.1 MG/DL (8.5-10.1); CARBON DIOXIDE 29 MMOL/L (21-32); CHLORIDE 104 MMOL/L (98-107); CREATININE 0.9 MG/DL (0.55-1.30); SODIUM 139 MMOL/L (136-145)
[2018-06-23 09:04] LABS: BILIRUBIN,DIRECT 0.7 MG/DL (0.0-0.3)
--- NOTE | 2018-06-23 09:31 | General Progress Note ---
Assessment/Plan Problem List: (1) Chest pain (2) ACS (acute coronary syndrome) (3) Gastric cancer ICD Codes: C16.9 - Malignant neoplasm of stomach, unspecified SNOMED: 311130180 (4) Anemia ICD Codes: D64.9 - Anemia, unspecified SNOMED: 031031211 (5) Paroxysmal a-fib ICD Codes: I48.0 - Paroxysmal a-fib SNOMED: 643130726 (6) CHF exacerbation ICD Codes: I50.9 - Heart failure, unspecified SNOMED: 09182287 Qualifiers: Qualified Codes: I50.9 - Heart failure, unspecified Status: stable, progressing Assessment/Plan cont iv lasix per cards elevate legs. sleeping monitor renal fxn/volume status/bp antiemetics antacids monitor cxr monitor labs follow up urine culture iv abx Subjective ROS Limited/Unobtainable: No Constitutional: Reports: malaise, weakness HEENT: Reports: no symptoms Cardiovascular: Reports: no symptoms Respiratory: Reports: no symptoms Gastrointestinal/Abdominal: Reports: abdominal pain Genitourinary: Reports: no symptoms Neurologic/Psychiatric: Reports: pre-existing deficit Endocrine: Reports: no symptoms Hematologic/Lymphatic: Reports: no symptoms Allergies: Coded Allergies: CODEINE (Verified Allergy, Unknown, 06/17/18) All Systems: reviewed and negative except above Subjective no new complaints. does feel any better. legs appear more swollen this am. Objective Last 24 Hour Vital Signs Date Time Temp Pulse Resp B/P (MAP) Pulse Ox O2 Delivery O2 Flow Rate FiO2 06/23/18 04:00 84 06/23/18 04:00 98.2 82 17 109/64 (79) 99 98.2 06/23/18 00:00 98.0 71 18 124/87 (99) 98 98.0 06/23/18 00:00 85 06/22/18 21:00 78 121/94 06/22/18 21:00 Nasal Cannula 2.0 06/22/18 20:00 98.2 78 18 121/94 (103) 98 98.2 06/22/18 20:00 98 06/22/18 16:00 97.4 96 20 112/70 (84) 97 97.4 06/22/18 16:00 82 06/22/18 12:00 85 06/22/18 12:00 97.2 83 20 111/67 (82) 98 97.2 06/22/18 09:34 84 Intake and Output 06/22/18 06/23/18 19:00 07:00 Intake Total 480 ml 480 ml Balance 480 ml 480 ml Intake Oral 480 ml 480 ml # Voids 3 3 Laboratory Tests 06/22/18 09:45: Urine Color Brown, Urine Appearance Cloudy, Urine pH 7, Urine Specific [place] 1.010, Urine Protein 4+H, Urine Glucose (UA) Negative, Urine Ketones Negative, Urine Blood 5+H, Urine Nitrite PositiveH, Urine Bilirubin Negative, Urine Urobilinogen 1H, Urine Leukocyte Esterase 3+H, Urine RBC TntcH, Urine WBC TntcH , Urine Squamous Epithelial Cells None, Urine Bacteria Occasional 06/23/18 07:50: White Blood Count 5.7, Red Blood Count 3.23L, Hemoglobin 8.6L, Hematocrit 28.1L , Mean Corpuscular Volume 87, Mean Corpuscular Hemoglobin 26.5L, Mean Corpuscular Hemoglobin Concent 30.4L, Red Cell Distribution Width 15.0H, Platelet Count 133L, Mean Platelet Volume 9.7, Neutrophils (%) (Auto) 60.9, Lymphocytes (%) (Auto) 23.5, Monocytes (%) (Auto) 11.4H, Eosinophils (%) (Auto) 2.3, Basophils (%) (Auto) 1.9, Sodium Level 139, Potassium Level 4.0, Chloride Level 104, Carbon Dioxide Level 29, Anion Gap 6, Blood Urea Nitrogen 26H, Creatinine 0.9, Estimat Glomerular Filtration Rate , Glucose Level 116H, Calcium Level 9.1, Magnesium Level 1.9, Total Bilirubin 1.6H, Direct Bilirubin 0.7H, Aspartate Amino Transf (AST/SGOT) 24, Alanine Aminotransferase (ALT/SGPT) 18, Alkaline Phosphatase 84, Pro-B-Type Natriuretic Peptide 6000H, Total Protein 8.4H, Albumin 3.1L, Globulin 5.3, Albumin/Globulin Ratio 0.6L Height (Feet): 5 Height (Inches): 4.00 Weight (Pounds): 148 Objective General Appearance: WD/WN, alert Neck: supple Cardiovascular: normal rate Respiratory/Chest: decreased breath sounds Abdomen: normal bowel sounds, non tender, soft, no organomegaly Edema: 2-3 + edema Neurologic: mass spectrometry manager II-XII grossly normal, no motor/sensory deficits, alert, oriented x 3, responsive Palomo Frankel MD Jun 23, 2018 09:31
[2018-06-23] MEDS: Digoxin 0.125mg tab ORAL SCH (10:19)
[2018-06-23] MEDS: Spironolactone 25mg tab ORAL SCH (10:19)
[2018-06-23] MEDS: Carvedilol 6.25mg Tab ORAL SCH ×2 (10:20→21:27)
[2018-06-23] MEDS: Losartan 50mg tab ORAL SCH (10:24)
[2018-06-23 12:00] VITALS: BP 105/69
[2018-06-23 16:00] VITALS: BP 116/79
[2018-06-23] MEDS: Lidocaine 1% MPF 10mg/ml 5ml IM SCH (16:45)
[2018-06-23 20:00] VITALS: BP 116/65
[2018-06-24] VITALS: BP 110/72
--- NOTE | 2018-06-24 00:45 | Progress Note ---
DATE: 06/23/2018 CARDIOLOGY PROGRESS NOTE SUBJECTIVE: The patient is still with shortness of breath and leg swelling that has improved. The Alarcon catheter was removed yesterday. She is on IV antibiotics for empiric treatment of urinary infection pending final culture results. She still feels weak, but much improved. Monitored rhythm, atrial fibrillation ventricular pacing by demand, overall rate controlled. OBJECTIVE: VITAL SIGNS: Blood pressure 109/64, pulse 82, respirations 17, and afebrile. LUNGS: Clear. CARDIAC: Irregularly irregular. Normal S1, S2. ABDOMEN: Soft with no ascites. EXTREMITIES: With 1+ dependent edema. IMPRESSION: 1. Acute on chronic systolic congestive heart failure, improving. 2. Healthcare-acquired urinary tract infection due to Alarcon catheter, on antibiotics. 3. Cardiac defibrillator. 4. Atrial fibrillation, rate controlled. 5. History of diverticulosis. 6. Gastric cancer, in remission. 7. Gastrointestinal bleeding. PLAN: 1. Transition from IV to oral diuretics. 2. Optimize anti-failure regimen. 3. Await final urine culture results. 4. No anticoagulation planned based on increased risk to benefit ratio. 5. Discussed with patient who agrees. Miguel Mason M.D. DR: YOLETTE JOB#: [id number] CC:
[2018-06-24 04:00] VITALS: BP 106/62
[2018-06-24] MEDS: NovoLOG Insulin Flexpen SUBQ SCH ×2 (06:30→17:23)
[2018-06-24 07:39] LABS: BASOPHILS % (AUTO) 1.4 % (0.0-2.0); EOSINOPHILS % (AUTO) 2.7 % (0.0-3.0); HEMATOCRIT 27.7 % (37.0-47.0); HEMOGLOBIN 8.5 G/DL (12.0-16.0); LYMPHOCYTES % (AUTO) 25.9 % (20.0-45.0); MEAN CORPUSCULAR VOLUME 88 FL (80-99); MONOCYTES % (AUTO) 11.5 % (1.0-10.0); NEUTROPHILS % (AUTO) 58.5 % (45.0-75.0); PLATELET COUNT 133 K/UL (150-450); RED BLOOD COUNT 3.16 M/UL (4.20-5.40); RED CELL DISTRIBUTION WIDTH 15.1 % (11.6-14.8); WHITE BLOOD COUNT 5.2 K/UL (4.8-10.8)
[2018-06-24 07:47] LABS: INR 1.3 (0.9-1.1)
[2018-06-24 08:00] VITALS: BP 103/66
[2018-06-24 08:30] LABS: ALANINE AMINOTRANSFERASE 18 U/L (12-78); ALBUMIN 2.9 G/DL (3.4-5.0); ALBUMIN/GLOBULIN RATIO 0.5 (1.0-2.7); ALKALINE PHOSPHATASE 77 U/L (46-116); ASPARTATE AMINO TRANSFERASE 23 U/L (15-37); BILIRUBIN,TOTAL 1.4 MG/DL (0.2-1.0); BLOOD UREA NITROGEN 25 mg/dL (7-18); CALCIUM 8.8 MG/DL (8.5-10.1); CHLORIDE 105 MMOL/L (98-107); POTASSIUM 4.3 MMOL/L (3.5-5.1); SODIUM 140 MMOL/L (136-145)
[2018-06-24 08:32] LABS: BILIRUBIN,DIRECT 0.5 MG/DL (0.0-0.3)
[2018-06-24] MEDS: Digoxin 0.125mg tab ORAL SCH (08:39)
[2018-06-24] MEDS: Furosemide 80mg tab ORAL SCH (08:39)
[2018-06-24] MEDS: Spironolactone 25mg tab ORAL SCH (08:40)
[2018-06-24] MEDS: Carvedilol 6.25mg Tab ORAL SCH (08:51)
[2018-06-24] MEDS: Losartan 50mg tab ORAL SCH (09:19)
[2018-06-24 10:26] LABS: CARBON DIOXIDE 26 MMOL/L (21-32)
[2018-06-24 10:34] LABS: ANION GAP 9 mmol/L (5-15)
[2018-06-24 12:00] VITALS: BP 113/75
[2018-06-24 16:00] VITALS: BP 128/65
--- NOTE | 2018-06-24 17:13 | General Progress Note ---
Assessment/Plan Problem List: (1) Chest pain (2) ACS (acute coronary syndrome) (3) Gastric cancer ICD Codes: C16.9 - Malignant neoplasm of stomach, unspecified SNOMED: 355433634 (4) Anemia ICD Codes: D64.9 - Anemia, unspecified SNOMED: 298436468 (5) Paroxysmal a-fib ICD Codes: I48.0 - Paroxysmal a-fib SNOMED: 849526005 (6) CHF exacerbation ICD Codes: I50.9 - Heart failure, unspecified SNOMED: 33951074 Qualifiers: Qualified Codes: I50.9 - Heart failure, unspecified Status: stable, progressing Assessment/Plan cont iv lasix per cards elevate legs. no sleeping in the chair monitor renal fxn/volume status/bp antiemetics antacids monitor cxr monitor labs iv abx Subjective ROS Limited/Unobtainable: No Constitutional: Reports: malaise, weakness HEENT: Reports: no symptoms Cardiovascular: Reports: edema Respiratory: Reports: cough, shortness of breath Gastrointestinal/Abdominal: Reports: abdominal pain Genitourinary: Reports: no symptoms Neurologic/Psychiatric: Reports: no symptoms Endocrine: Reports: no symptoms Hematologic/Lymphatic: Reports: anemia Allergies: Coded Allergies: CODEINE (Verified Allergy, Unknown, 06/17/18) All Systems: reviewed and negative except above Subjective no new complaints. does feel any better. still has edema 2+ intermittent cp/abd pain.. +nausea. no vomiting. Objective Last 24 Hour Vital Signs Date Time Temp Pulse Resp B/P (MAP) Pulse Ox O2 Delivery O2 Flow Rate FiO2 06/24/18 16:00 97.7 80 20 128/65 (86) 100 97.7 06/24/18 12:00 79 06/24/18 12:00 97.9 86 18 113/75 (88) 98 97.9 06/24/18 09:19 103/56 06/24/18 09:00 Nasal Cannula 2.0 06/24/18 08:51 88 103/56 06/24/18 08:39 88 06/24/18 08:00 88 06/24/18 08:00 97.3 86 20 103/66 (78) 99 97.3 06/24/18 04:00 98.0 81 20 106/62 (77) 99 98.0 9/13/18 04:00 87 06/24/18 00:00 88 06/24/18 00:00 98.3 85 21 110/72 (85) 99 98.3 06/23/18 21:27 87 116/65 06/23/18 21:00 Nasal Cannula 2.0 06/23/18 20:00 86 06/23/18 20:00 98.2 87 20 116/65 (82) 99 98.2 Intake and Output 06/23/18 06/24/18 19:00 07:00 Intake Total 360 ml Output Total 300 ml Balance 60 ml Intake Oral 360 ml Output Urine Total 300 ml # Voids 2 2 Laboratory Tests 06/24/18 06:55: White Blood Count 5.2, Red Blood Count 3.16L, Hemoglobin 8.5L, Hematocrit 27.7L , Mean Corpuscular Volume 88, Mean Corpuscular Hemoglobin 26.8L, Mean Corpuscular Hemoglobin Concent 30.6L, Red Cell Distribution Width 15.1H, Platelet Count 133L, Mean Platelet Volume 11.0H, Neutrophils (%) (Auto) 58.5, Lymphocytes (%) (Auto) 25.9, Monocytes (%) (Auto) 11.5H, Eosinophils (%) (Auto) 2.7, Basophils (%) (Auto) 1.4, Prothrombin Time 13.7H, Prothromb Time International Ratio 1.3H, Sodium Level 140, Potassium Level 4.3, Chloride Level 105, Carbon Dioxide Level 26, Anion Gap 9, Blood Urea Nitrogen 25H, Creatinine 1.0, Estimat Glomerular Filtration Rate , Glucose Level 100, Calcium Level 8.8, Magnesium Level 1.9, Total Bilirubin 1.4H, Direct Bilirubin 0.5H, Aspartate Amino Transf (AST/SGOT) 23, Alanine Aminotransferase (ALT/SGPT) 18, Alkaline Phosphatase 77, Pro-B-Type Natriuretic Peptide 4787H, Total Protein 8.3H, Albumin 2.9L, Globulin 5.4, Albumin/Globulin Ratio 0.5L Height (Feet): 5 Height (Inches): 4.00 Weight (Pounds): 148 Objective General Appearance: WD/WN, alert Neck: supple Cardiovascular: normal rate Respiratory/Chest: decreased breath sounds Abdomen: normal bowel sounds, non tender, soft, no organomegaly Edema: 2-3 + edema Neurologic: lead software architect II-XII grossly normal, no motor/sensory deficits, alert, oriented x 3, responsive Palomo Frankel MD Jun 24, 2018 17:13
[2018-06-24] MEDS: Lidocaine 1% MPF 10mg/ml 5ml IM SCH (17:42)
[2018-06-24 19:58] VITALS: BP 141/59
[2018-06-24] MEDS: Carvedilol 12.5mg tab ORAL SCH (21:37)
[2018-06-25] VITALS: BP 122/59
--- NOTE | 2018-06-25 03:00 | Progress Note ---
DATE: 06/24/2018 CARDIOLOGY PROGRESS NOTE SUBJECTIVE: The patient without complaints. Still has leg swelling. She is on IV antibiotics. Some nausea. No vomiting. OBJECTIVE: VITAL SIGNS: Blood pressure 128/65, pulse 80, respiratory rate 20. Monitor, atrial fibrillation with ventricular pacing. LUNGS: Clear. CARDIAC: Irregularly irregular. Normal S1, paradoxically split S2. ABDOMEN: Soft. EXTREMITIES: She has 1 to 2+ dependent edema. LABORATORY DATA: White count 5.3, hemoglobin 8.5. Sodium 140, potassium 4.3, bicarbonate 26, BUN 25, creatinine 1, magnesium 1.9. Pro-natriuretic peptide down to 4700. Albumin 2.9. Urine culture with Klebsiella, second pathogen is pending. IMPRESSION: 1. UTI acquired with indwelling Alarcon catheter, now removed. Pathogen is Klebsiella. 2. Acute on chronic systolic congestive heart failure. 3. Paroxysmal atrial fibrillation. 4. Cardiac defibrillator. 5. Anemia of chronic kidney disease. 6. Moderate protein-calorie malnutrition. 7. Dilated cardiomyopathy. PLAN: 1. Diuresis effort. 2. Antimicrobials. 3. Titrate anti-failure drugs. 4. Mobilize. 5. The patient does not want to take blood thinners and is aware of cardioembolic risk, but has had bleeding problems in the past from her GI tract. Norberto Yoon JOB#: [id number] CC:
[2018-06-25 04:00] VITALS: BP 111/49
[2018-06-25] MEDS: NovoLOG Insulin Flexpen SUBQ SCH ×2 (05:42→17:20)
[2018-06-25 08:00] VITALS: BP 111/67
[2018-06-25] MEDS: Losartan 50mg tab ORAL SCH ×2 (08:55→09:00)
[2018-06-25] MEDS: Digoxin 0.125mg tab ORAL SCH (08:55)
[2018-06-25] MEDS: Carvedilol 12.5mg tab ORAL SCH ×2 (08:56→21:13)
[2018-06-25] MEDS: Furosemide 80mg tab ORAL SCH ×4 (08:56→17:22)
[2018-06-25] MEDS: Spironolactone 25mg tab ORAL SCH (08:56)
[2018-06-25 12:00] VITALS: BP 124/65
[2018-06-25 16:00] VITALS: BP 127/78
[2018-06-25] MEDS: cefTRIAXone 1gm/D5W 55ml IVPB SCH ×2 (16:58)
[2018-06-25 20:52] VITALS: BP 126/76
[2018-06-26] VITALS: BP 121/69
--- NOTE | 2018-06-26 00:15 | Progress Note ---
DATE: 06/25/2018 Cardiology Progress Note SUBJECTIVE: Status quo, still short of breath, still with leg swelling, but improved, very weak. OBJECTIVE: VITAL SIGNS: Blood pressure 126/76, pulse 86, respiratory rate 20, and afebrile. Oxygen saturation 100% on 2 liters. NECK: Jugular venous pressure elevated. LUNGS: With few rales. CARDIAC: Irregularly irregular. Normal S1 and S2. A 1/6 systolic apical murmur. EXTREMITIES: With 1+ edema. LABORATORY DATA: No new labs today. IMPRESSION: 1. Acute on chronic systolic congestive heart failure, slowly improved. 2. Cardiac defibrillator. 3. Dilated cardiomyopathy. 4. Chronic kidney disease. 5. Type 2 diabetes mellitus. 6. Anemia of chronic disease. 7. History of GI bleeding. 8. History of gastric cancer. PLAN: 1. Additional diuresis. 2. Maintain current anti-failure regimen. 3. Mobilize. 4. No plan for anticoagulation based on risk to benefit ratio as previously discussed. Miguel Mason M.D. DR: MER JOB#: [id number] CC:
[2018-06-26 03:50] VITALS: BP 120/83
[2018-06-26] MEDS: NovoLOG Insulin Flexpen SUBQ SCH ×2 (06:08→17:44)
[2018-06-26 07:08] LABS: BASOPHILS % (AUTO) 1.7 % (0.0-2.0); EOSINOPHILS % (AUTO) 2.4 % (0.0-3.0); HEMATOCRIT 26.7 % (37.0-47.0); HEMOGLOBIN 8.1 G/DL (12.0-16.0); LYMPHOCYTES % (AUTO) 27.3 % (20.0-45.0); MEAN CORPUSCULAR VOLUME 87 FL (80-99); NEUTROPHILS % (AUTO) 57.6 % (45.0-75.0); PLATELET COUNT 139 K/UL (150-450); RED BLOOD COUNT 3.07 M/UL (4.20-5.40); RED CELL DISTRIBUTION WIDTH 15.3 % (11.6-14.8); WHITE BLOOD COUNT 4.6 K/UL (4.8-10.8)
[2018-06-26 07:35] LABS: ANION GAP 6 mmol/L (5-15); BLOOD UREA NITROGEN 24 mg/dL (7-18); CALCIUM 9.4 MG/DL (8.5-10.1); CARBON DIOXIDE 26 MMOL/L (21-32); CHLORIDE 107 MMOL/L (98-107); CREATININE 1.1 MG/DL (0.55-1.30); POTASSIUM 4.1 MMOL/L (3.5-5.1); SODIUM 139 MMOL/L (136-145)
[2018-06-26 08:00] VITALS: BP 114/66
[2018-06-26] MEDS: Losartan 50mg tab ORAL SCH (08:55)
[2018-06-26] MEDS: Digoxin 0.125mg tab ORAL SCH (08:55)
[2018-06-26] MEDS: Furosemide 80mg tab ORAL SCH (08:56)
[2018-06-26] MEDS: Carvedilol 12.5mg tab ORAL SCH ×2 (08:56→21:52)
[2018-06-26] MEDS: Spironolactone 25mg tab ORAL SCH (08:56)
[2018-06-26 12:00] VITALS: BP 117/72
--- NOTE | 2018-06-26 15:43 | General Progress Note ---
Assessment/Plan Problem List: (1) Chest pain (2) ACS (acute coronary syndrome) (3) Gastric cancer ICD Codes: C16.9 - Malignant neoplasm of stomach, unspecified SNOMED: 176870062 (4) Anemia ICD Codes: D64.9 - Anemia, unspecified SNOMED: 520581678 (5) Paroxysmal a-fib ICD Codes: I48.0 - Paroxysmal a-fib SNOMED: 611805480 (6) CHF exacerbation ICD Codes: I50.9 - Heart failure, unspecified SNOMED: 74776897 Qualifiers: Qualified Codes: I50.9 - Heart failure, unspecified Status: stable, progressing Assessment/Plan cont iv lasix monitor renal fxn/volume status/bp antiemetics antacids monitor cxr monitor labs iv abx Subjective ROS Limited/Unobtainable: No Constitutional: Reports: malaise, weakness HEENT: Reports: no symptoms Cardiovascular: Reports: edema Respiratory: Reports: shortness of breath Gastrointestinal/Abdominal: Reports: no symptoms Genitourinary: Reports: no symptoms Neurologic/Psychiatric: Reports: no symptoms Endocrine: Reports: no symptoms Hematologic/Lymphatic: Reports: no symptoms Allergies: Coded Allergies: CODEINE (Verified Allergy, Unknown, 06/17/18) All Systems: reviewed and negative except above Subjective no new complaints. does feel any better. still has edema 2+ no fever or chills labs reviewed Objective Last 24 Hour Vital Signs Date Time Temp Pulse Resp B/P (MAP) Pulse Ox O2 Delivery O2 Flow Rate FiO2 06/26/18 12:00 87 06/26/18 12:00 98.2 89 20 117/72 (87) 98 98.2 06/26/18 09:00 Nasal Cannula 2.0 06/26/18 08:56 98 114/66 06/26/18 08:55 114/66 06/26/18 08:55 98 06/26/18 08:00 97.7 98 18 114/66 (82) 100 97.7 06/26/18 08:00 104 06/26/18 04:00 91 06/26/18 03:50 98.2 85 20 120/83 (95) 100 98.2 06/26/18 00:00 88 06/26/18 00:00 98.1 84 20 121/69 (86) 99 98.1 06/25/18 21:13 86 126/76 06/25/18 21:00 Nasal Cannula 2.0 06/25/18 20:52 97.0 86 20 126/76 (93) 100 97.0 06/25/18 20:00 91 06/25/18 16:00 97.0 81 20 127/78 (94) 95 97.0 06/25/18 16:00 84 Intake and Output 06/25/18 06/26/18 19:00 07:00 Intake Total 530 ml Balance 530 ml Intake Oral 420 ml IV Total 110 ml # Voids 3 3 # Bowel Movements 1 Laboratory Tests 06/26/18 05:15: White Blood Count 4.6L, Red Blood Count 3.07L, Hemoglobin 8.1L, Hematocrit 26.7L , Mean Corpuscular Volume 87, Mean Corpuscular Hemoglobin 26.3L, Mean Corpuscular Hemoglobin Concent 30.3L, Red Cell Distribution Width 15.3H, Platelet Count 139L, Mean Platelet Volume 9.7, Neutrophils (%) (Auto) 57.6, Lymphocytes (%) (Auto) 27.3, Monocytes (%) (Auto) 11.0H, Eosinophils (%) (Auto) 2.4, Basophils (%) (Auto) 1.7, Sodium Level 139, Potassium Level 4.1, Chloride Level 107, Carbon Dioxide Level 26, Anion Gap 6, Blood Urea Nitrogen 24H, Creatinine 1.1, Estimat Glomerular Filtration Rate , Glucose Level 88, Uric Acid 5.6, Calcium Level 9.4, Magnesium Level 2.1, Pro-B-Type Natriuretic Peptide 6530H Height (Feet): 5 Height (Inches): 4.00 Weight (Pounds): 156 Objective General Appearance: WD/WN, alert Neck: supple Cardiovascular: normal rate Respiratory/Chest: decreased breath sounds Abdomen: normal bowel sounds, non tender, soft, no organomegaly Edema: 2-3 + edema Neurologic: relief manager II-XII grossly normal, no motor/sensory deficits, alert, oriented x 3, responsive Palomo Frankel MD Jun 26, 2018 15:43
[2018-06-26 16:00] VITALS: BP 131/73
[2018-06-26] MEDS: cefTRIAXone 1gm/D5W 55ml IVPB SCH ×2 (17:45)
[2018-06-26 20:00] VITALS: BP 135/78
--- NOTE | 2018-06-26 20:15 | Progress Note ---
DATE: 06/26/2018 CARDIOLOGY PROGRESS NOTE SUBJECTIVE: Leg swelling persists. Shortness of breath improved. She is dizzy and lightheaded upon walking. She is not comfortable taking more diuretics. OBJECTIVE: VITAL SIGNS: Blood pressure 117/72, pulse 89, respiratory rate 20 and afebrile. LUNGS: Diminished breath sounds. No rales. CARDIAC: Irregularly irregular rhythm. Normal S1 and S2. A 1/6 systolic murmur at apex. ABDOMEN: Soft. EXTREMITIES: A 1+ dependent edema. LABORATORY AND DIAGNOSTIC DATA: White count 4.6 and hemoglobin 8.1. Potassium 4.1. Pro-natriuretic peptide 6500. BUN 24 and creatinine 1.1. Urine culture with Klebsiella pneumoniae and Morganella morganii, both sensitive to ceftriaxone. PLAN: 1. Continue IV antibiotics. 2. Titrate anti-failure regimen. 3. Continue diuresis efforts. 4. Check orthostatics. 5. DVT prophylaxis due to increased bleeding risk. 6. No plan for anticoagulation at this time. Miguel Mason M.D. DR: BRENDAN JOB#: [id number] CC:
[2018-06-26] MEDS: traMADol 50mg tab ORAL PRN (21:53)
[2018-06-27] VITALS: BP 113/75
[2018-06-27 04:00] VITALS: BP 121/71
[2018-06-27] MEDS: NovoLOG Insulin Flexpen SUBQ SCH ×2 (06:01→17:14)
[2018-06-27 08:00] VITALS: BP 100/64
[2018-06-27] MEDS: Carvedilol 12.5mg tab ORAL SCH ×2 (09:00→20:31)
[2018-06-27] MEDS: Losartan 50mg tab ORAL SCH (09:10)
[2018-06-27] MEDS: Furosemide 80mg tab ORAL SCH (09:10)
[2018-06-27] MEDS: Digoxin 0.125mg tab ORAL SCH (09:10)
[2018-06-27] MEDS: Spironolactone 25mg tab ORAL SCH (09:10)
--- NOTE | 2018-06-27 11:54 | General Progress Note ---
Assessment/Plan Problem List: (1) Chest pain (2) ACS (acute coronary syndrome) (3) Gastric cancer ICD Codes: C16.9 - Malignant neoplasm of stomach, unspecified SNOMED: 507255070 (4) Anemia ICD Codes: D64.9 - Anemia, unspecified SNOMED: 221198773 (5) Paroxysmal a-fib ICD Codes: I48.0 - Paroxysmal a-fib SNOMED: 409923225 (6) CHF exacerbation ICD Codes: I50.9 - Heart failure, unspecified SNOMED: 90452560 Qualifiers: Qualified Codes: I50.9 - Heart failure, unspecified Status: stable, progressing Assessment/Plan cont iv lasix monitor renal fxn/volume status/bp antiemetics antacids monitor cxr monitor labs iv abx pt/ot dc planning Subjective ROS Limited/Unobtainable: No Constitutional: Reports: malaise, weakness HEENT: Reports: no symptoms Cardiovascular: Reports: edema Respiratory: Reports: cough, shortness of breath Gastrointestinal/Abdominal: Reports: no symptoms Genitourinary: Reports: no symptoms Neurologic/Psychiatric: Reports: no symptoms Endocrine: Reports: no symptoms Hematologic/Lymphatic: Reports: no symptoms Allergies: Coded Allergies: CODEINE (Verified Allergy, Unknown, 06/17/18) All Systems: reviewed and negative except above Subjective no new complaints. does feel any better. still has edema 2+ no fever or chills labs reviewed on iv abx Objective Last 24 Hour Vital Signs Date Time Temp Pulse Resp B/P (MAP) Pulse Ox O2 Delivery O2 Flow Rate FiO2 06/27/18 09:10 100/64 06/27/18 09:10 84 06/27/18 09:00 Nasal Cannula 2.0 06/27/18 09:00 Nasal Cannula 2.0 06/27/18 09:00 84 100/64 06/27/18 08:00 98.2 84 18 100/64 (76) 98 98.2 06/27/18 08:00 97 06/27/18 06:10 84 06/27/18 06:05 86 06/27/18 06:00 85 06/27/18 04:00 98.2 80 20 121/71 (88) 98 98.2 06/27/18 03:42 86 06/27/18 00:00 86 06/27/18 00:00 98.2 87 20 113/75 (88) 99 98.2 06/26/18 21:52 92 135/78 06/26/18 21:00 Nasal Cannula 2.0 06/26/18 20:00 97.9 92 18 135/78 (97) 99 97.9 06/26/18 19:25 83 06/26/18 16:00 97.8 81 18 131/73 (92) 100 97.8 06/26/18 16:00 86 06/26/18 12:00 87 06/26/18 12:00 98.2 89 20 117/72 (87) 98 98.2 Intake and Output 06/26/18 06/27/18 19:00 07:00 Intake Total 840 ml 200 ml Output Total 2 ml Balance 840 ml 198 ml Intake Oral 840 ml 200 ml Stool Total 2 ml # Voids 4 # Bowel Movements 1 1 Height (Feet): 5 Height (Inches): 4.00 Weight (Pounds): 133 Objective General Appearance: WD/WN, alert Neck: supple Cardiovascular: normal rate Respiratory/Chest: decreased breath sounds Abdomen: normal bowel sounds, non tender, soft, no organomegaly Edema: 2-3 + edema Neurologic: credit card interviewer II-XII grossly normal, no motor/sensory deficits, alert, oriented x 3, responsive Palomo Frankel MD Jun 27, 2018 11:54
[2018-06-27 12:00] VITALS: BP 111/64
[2018-06-27 16:00] VITALS: BP 123/83
[2018-06-27] MEDS: cefTRIAXone 1gm/D5W 55ml IVPB SCH ×2 (17:19)
[2018-06-27 20:00] VITALS: BP 123/75
[2018-06-27] MEDS ORDERED: LORazepam 0.5mg tab ORAL PRN (22:15)
[2018-06-27] MEDS ORDERED: LORazepam 0.5mg tab ORAL SCH (22:15)
--- NOTE | 2018-06-27 22:30 | Progress Note ---
DATE: 06/27/2018 CARDIOLOGY PROGRESS NOTE SUBJECTIVE: The patient has less shortness of breath and swelling. She is still quite weak. OBJECTIVE: VITAL SIGNS: Blood pressure 100/64, pulse 84, respiratory rate 18. Monitor, atrial fibrillation with demand ventricular pacing. NECK: Jugular venous pressure mildly elevated. LUNGS: Diminished breath sounds. No rales. CARDIAC: Irregularly irregular. Normal S1, S2 with a 1/6 systolic apical murmur. ABDOMEN: Soft. EXTREMITIES: With 1+ edema. IMPRESSION: 1. Acute on chronic systolic congestive heart failure. 2. Cardiomyopathy. 3. Cardiac defibrillator. 4. Paroxysmal atrial fibrillation. 5. History of ventricular tachycardia. 6. History of gastric cancer. 7. Chronic anemia. 8. Moderate protein-calorie malnutrition. PLAN: 1. Continue diuresis optimizing anti-failure regimen. 2. Mobilization. 3. Protein supplement. 4. No plan for anticoagulation due to bleeding risk. 5. Discussed with the patient who concurs with plan. 6. Discharge plan in the next 24 hours if condition continues to improve. Miguel Mason M.D. DR: Wilda JOB#: [id number] CC:
[2018-06-28] VITALS: BP 113/66
[2018-06-28 04:00] VITALS: BP 113/49
[2018-06-28] MEDS: NovoLOG Insulin Flexpen SUBQ SCH ×2 (06:19→17:12)
[2018-06-28 07:44] LABS: BASOPHILS % (AUTO) 2.3 % (0.0-2.0); EOSINOPHILS % (AUTO) 2.2 % (0.0-3.0); HEMATOCRIT 25.9 % (37.0-47.0); LYMPHOCYTES % (AUTO) 27.9 % (20.0-45.0); MEAN CORPUSCULAR VOLUME 86 FL (80-99); MONOCYTES % (AUTO) 12.4 % (1.0-10.0); NEUTROPHILS % (AUTO) 55.2 % (45.0-75.0); PLATELET COUNT 136 K/UL (150-450); RED BLOOD COUNT 3.01 M/UL (4.20-5.40); RED CELL DISTRIBUTION WIDTH 14.8 % (11.6-14.8); WHITE BLOOD COUNT 4.8 K/UL (4.8-10.8)
[2018-06-28 08:00] VITALS: BP 122/62
--- NOTE | 2018-06-28 08:10 | General Progress Note ---
Assessment/Plan Problem List: (1) Chest pain (2) ACS (acute coronary syndrome) (3) Gastric cancer ICD Codes: C16.9 - Malignant neoplasm of stomach, unspecified SNOMED: 570241800 (4) Anemia ICD Codes: D64.9 - Anemia, unspecified SNOMED: 470632845 (5) Paroxysmal a-fib ICD Codes: I48.0 - Paroxysmal a-fib SNOMED: 004893746 (6) CHF exacerbation ICD Codes: I50.9 - Heart failure, unspecified SNOMED: 85069152 Qualifiers: Qualified Codes: I50.9 - Heart failure, unspecified Status: stable, progressing Assessment/Plan cont iv lasix monitor renal fxn/volume status/bp antiemetics antacids monitor cxr monitor labs iv abx pt/ot dc planning. pt states she cannot go till tomorrow Subjective ROS Limited/Unobtainable: No Constitutional: Reports: malaise, weakness HEENT: Reports: no symptoms Cardiovascular: Reports: edema Respiratory: Reports: orthopnea, shortness of breath Gastrointestinal/Abdominal: Reports: abdominal pain Genitourinary: Reports: no symptoms Neurologic/Psychiatric: Reports: no symptoms Endocrine: Reports: no symptoms Hematologic/Lymphatic: Reports: anemia Allergies: Coded Allergies: CODEINE (Verified Allergy, Unknown, 06/17/18) All Systems: reviewed and negative except above Subjective improved. decreased sob and edema. eating better. no new complaints. Objective Last 24 Hour Vital Signs Date Time Temp Pulse Resp B/P (MAP) Pulse Ox O2 Delivery O2 Flow Rate FiO2 06/28/18 05:55 90 06/28/18 05:50 87 06/28/18 05:45 77 06/28/18 04:00 87 06/28/18 04:00 98.2 85 18 113/49 (70) 99 98.2 06/28/18 00:00 97.4 87 18 113/66 (82) 100 97.4 06/27/18 23:35 78 06/27/18 21:00 Nasal Cannula 2.0 06/27/18 20:31 84 123/75 06/27/18 20:00 98.2 84 20 123/75 (91) 100 98.2 06/27/18 20:00 81 06/27/18 16:00 80 06/27/18 16:00 98.0 70 20 123/83 (96) 100 98.0 06/27/18 12:00 97.5 86 18 111/64 (80) 98 97.5 06/27/18 12:00 83 06/27/18 09:10 100/64 06/27/18 09:10 84 06/27/18 09:00 Nasal Cannula 2.0 06/27/18 09:00 Nasal Cannula 2.0 06/27/18 09:00 84 100/64 Intake and Output 06/27/18 06/28/18 19:00 07:00 Intake Total 500 ml 360 ml Output Total 1325 ml Balance 500 ml -965 ml Intake Oral 500 ml 360 ml Output Urine Total 1325 ml # Voids 5 # Bowel Movements 3 1 Laboratory Tests 06/27/18 21:25: Digoxin Level 0.6L 06/28/18 06:55: White Blood Count 4.8, Red Blood Count 3.01L, Hemoglobin 8.0L, Hematocrit 25.9L , Mean Corpuscular Volume 86, Mean Corpuscular Hemoglobin 26.5L, Mean Corpuscular Hemoglobin Concent 30.8L, Red Cell Distribution Width 14.8, Platelet Count 136L, Mean Platelet Volume 11.2H, Neutrophils (%) (Auto) 55.2, Lymphocytes (%) (Auto) 27.9, Monocytes (%) (Auto) 12.4H, Eosinophils (%) (Auto) 2.2, Basophils (%) (Auto) 2.3H, Sodium Level [Pending], Potassium Level [Pending ], Chloride Level [Pending], Carbon Dioxide Level [Pending], Blood Urea Nitrogen [Pending], Creatinine [Pending], Estimat Glomerular Filtration Rate [ Pending], Glucose Level [Pending], Calcium Level [Pending], Magnesium Level [ Pending], Total Bilirubin [Pending], Aspartate Amino Transf (AST/SGOT) [Pending] , Alanine Aminotransferase (ALT/SGPT) [Pending], Alkaline Phosphatase [Pending] , Pro-B-Type Natriuretic Peptide [Pending], Total Protein [Pending], Albumin [ Pending], Globulin [Pending] Height (Feet): 5 Height (Inches): 4.00 Weight (Pounds): 120 Objective General Appearance: WD/WN, alert Neck: supple Cardiovascular: normal rate Respiratory/Chest: decreased breath sounds Abdomen: normal bowel sounds, non tender, soft, no organomegaly Edema: 2-3 + edema Neurologic: machine container washer II-XII grossly normal, no motor/sensory deficits, alert, oriented x 3, responsive Palomo Frankel MD Jun 28, 2018 08:10
[2018-06-28 08:46] LABS: ALANINE AMINOTRANSFERASE 18 U/L (12-78); ALBUMIN 2.9 G/DL (3.4-5.0); ALBUMIN/GLOBULIN RATIO 0.6 (1.0-2.7); ALKALINE PHOSPHATASE 77 U/L (46-116); ANION GAP 10 mmol/L (5-15); ASPARTATE AMINO TRANSFERASE 21 U/L (15-37); BILIRUBIN,TOTAL 1.2 MG/DL (0.2-1.0); BLOOD UREA NITROGEN 22 mg/dL (7-18); CALCIUM 8.9 MG/DL (8.5-10.1); CARBON DIOXIDE 25 MMOL/L (21-32); CHLORIDE 105 MMOL/L (98-107); SODIUM 140 MMOL/L (136-145)
[2018-06-28 08:48] LABS: BILIRUBIN,DIRECT 0.4 MG/DL (0.0-0.3)
[2018-06-28] MEDS: Spironolactone 25mg tab ORAL SCH (08:52)
[2018-06-28] MEDS: Digoxin 0.125mg tab ORAL SCH (08:52)
[2018-06-28] MEDS: Furosemide 80mg tab ORAL SCH (08:52)
[2018-06-28] MEDS: Carvedilol 12.5mg tab ORAL SCH ×2 (08:53→21:00)
[2018-06-28] MEDS: Losartan 50mg tab ORAL SCH (08:53)
[2018-06-28 12:00] VITALS: BP 92/56
[2018-06-28 16:00] VITALS: BP 109/72
[2018-06-28] MEDS: cefTRIAXone 1gm/D5W 55ml IVPB SCH ×2 (17:11)
[2018-06-28 20:00] VITALS: BP 102/70
--- NOTE | 2018-06-28 20:30 | Progress Note ---
DATE: 06/28/2018 CARDIOLOGY PROGRESS NOTE SUBJECTIVE: Feeling better today with no chest pain or shortness of breath. OBJECTIVE: VITAL SIGNS: Blood pressure 109/72, pulse 86, respirations 18, blood pressure range is 92/56 to 122/62. LUNGS: Diminished breath sounds. No rales. Jugular venous pressure is normal. EXTREMITIES: Revealed minimal trace edema. CARDIAC: Unchanged with irregularly irregular rhythm, normal S1 and S2 and a 1/6 systolic apical murmur. LABORATORY AND DIAGNOSTIC DATA: Labs notable for white count 4.8 and hemoglobin 8. Sodium is 140, potassium 4, bicarbonate 25, BUN 22, and creatinine 1. Magnesium is 1.8 and pro-natriuretic peptide has decreased to 5100. Albumin 2.9. IMPRESSION: 1. Cardiomyopathy. 2. Cardiac defibrillator. 3. Acute on chronic systolic congestive heart failure. 4. Moderate protein-calorie malnutrition. 5. Anemia of chronic disease. 6. GI bleeding due to diverticular disease. 7. Distant history of gastric cancer with no sign of recurrence for over 5 years. RECOMMENDATIONS: The patient is mostly compensated. She can be continued on oral diuretics, which is now her maintenance dose as well as her current anti-failure regimen. Her hemoglobin needs to be closely followed and she should continue on vitamin supplementations including iron. She will be seen by physical and occupational therapies and we will anticipate discharge home tomorrow if her condition continues to stabilize. We have decided not to treat her with anticoagulant due to her bleeding risks and the patient is aware of this and has helped with the decision process regarding to risk to benefit ratio for cardioembolic events. Hence, cardiac defibrillator will be interrogated on her usual schedule at my office. Miguel Mason M.D. : BRENDAN JOB#: [id number] CC:
[2018-06-29] VITALS: BP 120/68
--- NOTE | 2018-06-29 01:34 | Diagnostic Imaging Report ---
APPROVED REPORT CPT Code: 34378 Present Symptoms Shortness of breath Comments: Dyspnea BILATERAL: Imaging reveals a patent deep venous system bilaterally. There is no evidence of thrombus within the femoral, popliteal or tibial segments. The greater saphenous veins are also within normal limits. Doppler indicates normal spontaneous flow within these segments.
[2018-06-29 04:00] VITALS: BP 111/64
[2018-06-29] MEDS: NovoLOG Insulin Flexpen SUBQ SCH ×2 (05:45→16:50)
--- NOTE | 2018-06-29 06:45 | Discharge Summary ---
DATE OF ADMISSION: 06/17/2018 DATE OF DISCHARGE: 06/29/2018 ADMISSION DIAGNOSES: 1. Congestive heart failure exacerbation. 2. History of implantable cardioverter-defibrillator. 3. History of gastric carcinoma. 4. Anemia. 5. Paroxysmal atrial fibrillation. 6. History of anxiety. 7. Gastroesophageal reflux disease. DISCHARGE DIAGNOSES: 1. Congestive heart failure exacerbation. 2. History of implantable cardioverter-defibrillator. 3. History of gastric carcinoma. 4. Anemia. 5. Paroxysmal atrial fibrillation. 6. History of anxiety. 7. Gastroesophageal reflux disease. 8. Urinary tract infection. HOSPITAL COURSE: The patient is a pleasant 83-year-old female. She has a prior history of congestive heart failure, ICD, and paroxysmal atrial fibrillation. She has prior history of gastric cancer, status post gastrectomy. She presented with complaints of generalized weakness, shortness of breath, and worsening lower extremity edema. She was diagnosed with acute on chronic systolic and diastolic heart failure exacerbation. She received intravenous Lasix. She had very slow improvement and poor response. Intravenous Lasix doses were gradually increased. She had an x-ray that showed left-sided pleural effusion. This improved with diuresis. The patient's hospital course was complicated by the E. coli UTI, treated with intravenous antibiotics. On discharge, the patient was stable. Edema improved. She will be discharged home with close outpatient followup. Home health will be arranged. DISCHARGE MEDICATIONS: Please see discharge list for discharge medications. DIET: Cardiac diet. ACTIVITY: Ad-berto. FOLLOWUP: The patient to follow up in one to two weeks in the office. Palomo Frankel M.D. DR: SONNY JOB#: [id number] CC:
[2018-06-29 08:00] VITALS: BP 106/79
[2018-06-29] MEDS: Spironolactone 25mg tab ORAL SCH (09:00)
[2018-06-29] MEDS: Digoxin 0.125mg tab ORAL SCH (09:00)
[2018-06-29] MEDS: Furosemide 80mg tab ORAL SCH (09:00)
[2018-06-29] MEDS: Losartan 50mg tab ORAL SCH (09:00)
[2018-06-29] MEDS: Carvedilol 12.5mg tab ORAL SCH (09:00)
[2018-06-29 12:00] VITALS: BP 117/72
[2018-06-29 16:00] VITALS: BP 115/71
[2018-06-29] MEDS: cefTRIAXone 1gm/D5W 55ml IVPB SCH ×2 (16:56)
--- NOTE | 2018-06-29 23:45 | Progress Note ---
DATE: 06/29/2018 CARDIOLOGY PROGRESS NOTE SUBJECTIVE: The patient continues to feel better and improve albeit slowly. Her leg swelling has decreased further. She is not short of breath. She is extremely weak and fatigued easily. OBJECTIVE: VITAL SIGNS: Blood pressure 117/72, pulse 95, respirations 18 and afebrile. Heart rate ranging from 70 to 100. Monitor atrial fibrillation with demand pacing. LUNGS: Diminished breath sounds. No wheezing. Chest wall with cardiac defibrillator on the left. CARDIAC: Irregularly irregular rhythm. Normal S1 and S2 with a 1/6 systolic apical murmur. ABDOMEN: Soft. EXTREMITIES: With trace edema. LABORATORY AND DIAGNOSTIC DATA: Venous duplex study from 06/24/2018 was finalized, as no DVT bilaterally. IMPRESSION: 1. Acute on chronic systolic congestive heart failure, now clinically compensated. 2. Cardiac defibrillator with stable function. 3. Paroxysmal atrial fibrillation, rate controlled. 4. Moderate protein-calorie malnutrition. 5. History of gastric cancer in remission with chronic GI blood loss. 6. Iron deficiency with anemia. 7. Hypertensive heart disease with controlled blood pressure. 8. Type 2 diabetes mellitus. PLAN: 1. Continue current oral regimen and dietary restrictions for outpatient management. 2. The patient advised to monitor weight and adjust diuretic dose accordingly. 3. Outpatient defibrillator interrogation to follow. Miguel Mason M.D. DR: BRENDAN JOB#: [id number] CC:
== END 2018-06-29 18:00 | disposition home or self-care (01) | DRG 291 ==
LOC: EMR 06:05 → 2E 06:34 → EDBEDREQ 06:43 → 2E 08:48
DX: I11.0 Hypertensive heart disease with heart failure (principal); K57.91 Diverticulosis of intestine, part unspecified, without perforation or abscess with bleeding; E87.2 Acidosis; N39.0 Urinary tract infection, site not specified; I47.2 Ventricular tachycardia; E44.1 Mild protein-calorie malnutrition; I50.23 Acute on chronic systolic (congestive) heart failure; I48.0 Paroxysmal atrial fibrillation; R10.9 Unspecified abdominal pain; Z85.028 Personal history of other malignant neoplasm of stomach; F41.9 Anxiety disorder, unspecified; I25.5 Ischemic cardiomyopathy; Z95.810 Presence of automatic (implantable) cardiac defibrillator; R07.9 Chest pain, unspecified; Z88.6 Allergy status to analgesic agent; K21.9 Gastro-esophageal reflux disease without esophagitis; D63.1 Anemia in chronic kidney disease; E11.40 Type 2 diabetes mellitus with diabetic neuropathy, unspecified; E78.5 Hyperlipidemia, unspecified; I34.0 Nonrheumatic mitral (valve) insufficiency; I36.1 Nonrheumatic tricuspid (valve) insufficiency; E83.42 Hypomagnesemia; E11.43 Type 2 diabetes mellitus with diabetic autonomic (poly)neuropathy; K31.84 Gastroparesis; D50.9 Iron deficiency anemia, unspecified; B96.1 Klebsiella pneumoniae [K. pneumoniae] as the cause of diseases classified elsewhere; I42.0 Dilated cardiomyopathy
CPT/HCPCS: 36415; 71045; 74176; 80048; 80053; 80162; 81003; 82248; 82550; 82553; 82962; 83735; 83880; 84484; 84550; 85025; 85610; 85730; 87086; 87181; 93005; 93970; 96374; 96375; 99291; J1815; J8499

== ENCOUNTER 2018-07-13 15:54 | Inpatient (IN) | payer MEDICARE, OTHER ==
[~2018-07-13] VITALS: Ht 160 cm; Wt 56.3 kg
[~2018-07-13 15:54] MED LIST changes: +UNOBMED
[2018-07-13] MEDS ORDERED: Digoxin 0.5mg/2ml Inj IVP SCH ×2 (18:30→21:15)
[2018-07-13 19:15] LABS: BASOPHILS % (AUTO) 2.3 % (0.0-2.0); EOSINOPHILS % (AUTO) 0.4 % (0.0-3.0); HEMATOCRIT 31.6 % (37.0-47.0); HEMOGLOBIN 9.8 G/DL (12.0-16.0); LYMPHOCYTES % (AUTO) 30.1 % (20.0-45.0); MEAN CORPUSCULAR VOLUME 87 FL (80-99); MONOCYTES % (AUTO) 13.1 % (1.0-10.0); PLATELET COUNT 158 K/UL (150-450); RED BLOOD COUNT 3.63 M/UL (4.20-5.40); RED CELL DISTRIBUTION WIDTH 15.2 % (11.6-14.8); WHITE BLOOD COUNT 5.1 K/UL (4.8-10.8)
[2018-07-13 19:23] LABS: ANION GAP 14 mmol/L (5-15); BLOOD UREA NITROGEN 42 mg/dL (7-18); CALCIUM 9.3 MG/DL (8.5-10.1); CARBON DIOXIDE 18 MMOL/L (21-32); CHLORIDE 105 MMOL/L (98-107); CREATININE 1.6 MG/DL (0.55-1.30); POTASSIUM 5.1 MMOL/L (3.5-5.1); SODIUM 137 MMOL/L (136-145)
[2018-07-13 19:38] LABS: ALANINE AMINOTRANSFERASE 23 U/L (12-78); ALBUMIN 3.4 G/DL (3.4-5.0); ALBUMIN/GLOBULIN RATIO 0.6 (1.0-2.7); ALKALINE PHOSPHATASE 105 U/L (46-116); ASPARTATE AMINO TRANSFERASE 27 U/L (15-37)
[2018-07-13 19:40] LABS: BILIRUBIN,DIRECT 1.2 MG/DL (0.0-0.3)
[2018-07-13 20:00] VITALS: BP 131/96
[2018-07-13] MEDS: Carvedilol 12.5mg tab ORAL SCH (21:39)
[2018-07-13 23:56] LABS: BILIRUBIN, URINE NEGATIVE (NEGATIVE); GLUCOSE, URINE (UA) NEGATIVE (NEGATIVE); KETONES,URINE NEGATIVE (NEGATIVE); LEUKOCYTE ESTERASE ,URINE 1+ (NEGATIVE); NITRITE,URINE NEGATIVE (NEGATIVE); PH,URINE 5 (4.5-8.0); PROTEIN,URINE 3+ (NEGATIVE); UROBILINOGEN,URINE 1 MG/DL (0.0-1.0)
[2018-07-14] VITALS: BP 143/70
[2018-07-14 00:02] LABS: APPEARANCE,URINE SLIGHTLY CLOUDY; COLOR,URINE YELLOW
[2018-07-14 04:00] VITALS: BP 115/62
[2018-07-14] MEDS ORDERED: Lidocaine 1% Plain 30 ml INJ SCH (07:00)
[2018-07-14] MEDS ORDERED: Heparin 2000 units/Ns 1000ml INJ SCH (07:00)
[2018-07-14 08:00] VITALS: BP 112/63
[2018-07-14] MEDS: Spironolactone 25mg tab ORAL SCH (09:00)
[2018-07-14] MEDS: Losartan 50mg tab ORAL SCH ×2 (09:00→09:38)
[2018-07-14 09:27] LABS: BASOPHILS % (AUTO) 2.7 % (0.0-2.0); EOSINOPHILS % (AUTO) 0.9 % (0.0-3.0); HEMATOCRIT 33.7 % (37.0-47.0); LYMPHOCYTES % (AUTO) 16.2 % (20.0-45.0); MEAN CORPUSCULAR VOLUME 83 FL (80-99); MONOCYTES % (AUTO) 13.4 % (1.0-10.0); NEUTROPHILS % (AUTO) 66.8 % (45.0-75.0); PLATELET COUNT 158 K/UL (150-450); RED BLOOD COUNT 4.06 M/UL (4.20-5.40); WHITE BLOOD COUNT 6.6 K/UL (4.8-10.8)
[2018-07-14] MEDS: Aspirin Baby 81mg ORAL SCH (09:37)
[2018-07-14] MEDS: Carvedilol 12.5mg tab ORAL SCH ×2 (09:38→21:00)
[2018-07-14] MEDS: Digoxin 0.125mg tab ORAL SCH (09:38)
[2018-07-14] MEDS: Heparin 5000 units/ml inj SUBQ SCH ×2 (09:40→21:34)
[2018-07-14 10:04] LABS: ALANINE AMINOTRANSFERASE 25 U/L (12-78); ALBUMIN 2.8 G/DL (3.4-5.0); ALBUMIN/GLOBULIN RATIO 0.6 (1.0-2.7); ALKALINE PHOSPHATASE 90 U/L (46-116); ANION GAP 8 mmol/L (5-15); ASPARTATE AMINO TRANSFERASE 36 U/L (15-37); BILIRUBIN,TOTAL 3.2 MG/DL (0.2-1.0); BLOOD UREA NITROGEN 39 mg/dL (7-18); CALCIUM 8.6 MG/DL (8.5-10.1); CARBON DIOXIDE 26 MMOL/L (21-32); CHLORIDE 107 MMOL/L (98-107); CREATININE 1.5 MG/DL (0.55-1.30); POTASSIUM 4.2 MMOL/L (3.5-5.1); SODIUM 141 MMOL/L (136-145)
[2018-07-14] MEDS ORDERED: Lidocaine 1% Plain 30 ml INJ PRN (10:06)
[2018-07-14] MEDS ORDERED: Heparin 2000 units/Ns 1000ml INJ PRN (10:07)
--- NOTE | 2018-07-14 10:22 | Diagnostic Imaging Report ---
Indication: Cough Technique: One view of the chest Comparison: 06/21/2018 Findings: Interim considerable decrease in amount of pleural fluid on the left, although small to moderate left pleural effusion persists. The right pleural space and bilateral lungs are clear. The heart is enlarged. Left chest bifocal AICD again demonstrated. Impression: Small to moderate left pleural effusion, markedly improved from prior study of 06/21/2018 Cardiomegaly Other findings as noted
[2018-07-14 12:00] VITALS: BP 105/60
--- NOTE | 2018-07-14 12:29 | Pre-Procedure Note/Attestation ---
Pre-Procedure Note/Attestation Complete Prior to Procedure Planned Procedure: not applicable Procedure Narrative: PICC Indications for Procedure Pre-Operative Diagnosis: needs rn long term care IV access Attestation I attest that I discussed the nature of the procedure; its benefits; risks and complications; and alternatives (and the risks and benefits of such alternatives ), prior to the procedure, with the patient (or the patient's legal authorization representative). I attest that, if there was a reasonable possibility of needing a blood transfusion, the patient (or the patient's legal authorization representative) was given the [facility] standardized written summary, pursuant to the Vadim Toro Blood Safety Act ([place] Health and Safety Code # 1645, as amended). I attest that I re-evaluated the patient just prior to the surgery and that there has been no change in the patient's H&P, except as documented below: Oziel Leblanc MD Jul 14, 2018 12:29
--- NOTE | 2018-07-14 12:33 | Brief Operative Note ---
Immediate Post Operative Note Operative Note Pre-op Diagnosis: needs exterminator IV access Procedure: PICC (midline) Post-op Diagnosis: same as pre-op Surgeon: Cori LEBLANC Anesthesia: local Specimen: none Complications: none Condition: stable Fluids: none Implant(s) used?: No Oziel Leblanc MD Jul 14, 2018 12:33
--- NOTE | 2018-07-14 12:38 | Diagnostic Imaging Report ---
Indications: Needs long-term IV access Technique: Procedure performed at bedside. Procedural timeout performed. Initial attempts made at accessing the left arm, unable to pass guidewire and catheter, is only due to the presence of a pacemaker. It was elected to attempt access from the right side therefore, given less extensive pacemaker involvement Ultrasound confirms patent compressible right brachial vein. Total sterile technique, including sterile probe cover and sterile gel, sterile gloves, hand hygiene, hat, mask,, sterile gown, large sterile drape, and preparation with 2% chlorhexidine utilized. Local anesthesia with 1% lidocaine. Under real-time ultrasound guidance, puncture tracheal vein using 21-gauge needle, passage 0.018 guidewire, exchange for 5 Brazilian peel-away sheath. The guidewire wouldn't pass distally, but the catheter would not pass, presumably blocked by the pacemaker. There is therefore cut short. 5 Brazilian Bard dual-lumen power PICC cut to 20 cm. It was inserted through the peel-away sheath. Peel-away sheath and guidewire removed. Catheter fixed to the skin. Both catheter ports aspirated and flushed. Patient tolerated procedure well, without immediate complication. Followup chest x-ray obtained, documents catheter tip position at the level of the right axillary vein Impression: Successful bedside placement of right arm PICC under sonographic guidance, as described above, cut short presumably due to the presence of a pacemaker obstructing the superior vena cava and therefore only suitable for use as a midline.
[2018-07-14] MEDS ORDERED: Tubing IV Secondary IV ONE (15:52)
[2018-07-14] MEDS ORDERED: NS 275ml ONE (15:52)
[2018-07-14 16:00] VITALS: BP 104/50
[2018-07-14] MEDS: DOBUTamine 250mg/250ml Premix 250 ML IV SCH (18:59)
[2018-07-14 20:00] VITALS: BP 106/56
[2018-07-14] MEDS: Dyna-Hex 2% Top Sol 2oz TOPIC SCH (21:32)
[2018-07-15] VITALS: BP 110/88
[2018-07-15 04:00] VITALS: BP 102/60
--- NOTE | 2018-07-15 07:00 | History and Physical Report ---
DATE OF ADMISSION: 07/13/2018 CHIEF COMPLAINT: Atrial fibrillation with rapid ventricular response and congestive heart failure exacerbation. HISTORY OF PRESENT ILLNESS: The patient is an 83-year-old female. She presented to our survey engineer's office with complaints of shortness of breath and worsening lower extremity edema. She was noted to be in atrial fibrillation with rapid ventricular response. She was directly admitted for further treatment. The patient denies any fevers or chills, but she has had intermittent episodes of chest pain as well as worsening shortness of breath. Laboratories here were significant for a creatinine of 1.6 and lactic acid level of 6. Her troponin was 0.245. Urine was clear. X-ray results are currently pending. PAST MEDICAL HISTORY: As above. History of diabetes, hyperlipidemia, paroxysmal atrial fibrillation, chronic kidney disease, diabetic neuropathy, and nephropathy. PAST SURGICAL HISTORY: History of an AICD and history of gastric cancer status post partial gastrectomy. CURRENT MEDICATIONS: Reconciled and reviewed. ALLERGIES: Codeine. FAMILY HISTORY: Noncontributory. SOCIAL HISTORY: There is no known history of tobacco, ethanol, or drugs. REVIEW OF SYSTEMS: GENERAL: No fevers or chills. Positive malaise and weakness. HEENT: No headaches or visual changes. CARDIOPULMONARY: Positive chest pain. No shortness of breath. Positive dizziness. Positive lower extremity edema. GASTROINTESTINAL: No nausea or vomiting. GENITOURINARY: No urgency or frequency. MUSCULOSKELETAL: No joint pain or swelling, but positive lower extremity swelling. NEUROLOGIC: No evidence of seizures. PHYSICAL EXAMINATION: VITAL SIGNS: Temperature 98, pulse 74, respirations 18, and blood pressure 115/71. GENERAL: The patient is well developed, in no apparent distress. HEART: Irregularly irregular. LUNGS: Clear. ABDOMEN: Soft, nontender, and nondistended. EXTREMITIES: Without clubbing or cyanosis. There is 2 to 3+ edema noted. LABORATORY DATA: White count 5 and hemoglobin 10. Sodium 137, BUN 42, and creatinine 1.6. Lactic acid was 6. Natriuretic peptide level was 12,000. Troponin was 0.245. ASSESSMENT: This is a pleasant female admitted with complaints of atrial fibrillation with rapid ventricular response, severe lactic acidosis, possibly secondary to uncontrolled heart rate. She has automatic implanted cardioverter defibrillator, diabetes, hypertension, chronic kidney disease, history of gastric carcinoma. PLAN: 1. Repeat rate control per Cardiology. 2. Repeat lactic acid level. 3. Check a chest x-ray. 4. Monitor serial enzymes. 5. Diuresis with Lasix. 6. We will monitor closely on telemetry. Palomo Frankel M.D. DR: BETTY JOB#: [id number] CC:
[2018-07-15 07:36] LABS: BASOPHILS % (AUTO) 1.2 % (0.0-2.0); EOSINOPHILS % (AUTO) 0.7 % (0.0-3.0); HEMATOCRIT 32.4 % (37.0-47.0); HEMOGLOBIN 9.9 G/DL (12.0-16.0); LYMPHOCYTES % (AUTO) 13.6 % (20.0-45.0); MEAN CORPUSCULAR VOLUME 84 FL (80-99); MONOCYTES % (AUTO) 11.5 % (1.0-10.0); PLATELET COUNT 134 K/UL (150-450); RED BLOOD COUNT 3.85 M/UL (4.20-5.40); WHITE BLOOD COUNT 7.9 K/UL (4.8-10.8)
--- NOTE | 2018-07-15 07:49 | General Progress Note ---
Assessment/Plan Problem List: (1) Elevated troponin (2) Chest pain ICD Codes: R07.9 - Chest pain, unspecified SNOMED: 72525891 (3) ICD (implantable cardiac defibrillator) discharge ICD Codes: Z03.89 - ICD (implantable cardiac defibrillator) discharge SNOMED: 464040610 (4) CHF exacerbation ICD Codes: I50.9 - CHF exacerbation SNOMED: 50627816 (5) ACS (acute coronary syndrome) ICD Codes: I20.0 - Unstable angina SNOMED: 224806904 (6) Gastric cancer ICD Codes: C16.9 - Malignant neoplasm of stomach, unspecified SNOMED: 074328035 (7) CHF exacerbation ICD Codes: I50.9 - Heart failure, unspecified SNOMED: 40797586 (8) Paroxysmal a-fib ICD Codes: I48.0 - Paroxysmal a-fib SNOMED: 816930285 Status: stable, progressing Assessment/Plan follow up pending labs diuresis dobutamine rate control with b-gem stress ulcer prophylaxis Subjective ROS Limited/Unobtainable: No Constitutional: Reports: malaise, weakness HEENT: Reports: no symptoms Cardiovascular: Reports: chest pain, palpitations Respiratory: Reports: shortness of breath Gastrointestinal/Abdominal: Reports: no symptoms Genitourinary: Reports: no symptoms Neurologic/Psychiatric: Reports: no symptoms Endocrine: Reports: no symptoms Hematologic/Lymphatic: Reports: no symptoms Allergies: Coded Allergies: CODEINE (Verified Allergy, Unknown, 06/17/18) All Systems: reviewed and negative except above Subjective better today. decreased chest pain and sob. HR controlled. Objective Last 24 Hour Vital Signs Date Time Temp Pulse Resp B/P (MAP) Pulse Ox O2 Delivery O2 Flow Rate FiO2 07/15/18 04:00 98.2 87 20 102/60 (74) 99 98.2 07/15/18 04:00 Nasal Cannula 2.0 07/15/18 04:00 81 07/15/18 00:00 Nasal Cannula 2.0 07/15/18 00:00 98.0 64 18 110/88 (95) 100 98.0 07/15/18 00:00 68 07/14/18 21:00 60 106/56 07/14/18 20:00 97.7 60 20 106/56 (73) 99 97.7 07/14/18 20:00 Nasal Cannula 2.0 07/14/18 20:00 52 07/14/18 18:59 104/50 07/14/18 17:06 68 07/14/18 16:00 Nasal Cannula 2.0 07/14/18 16:00 98.2 57 18 104/50 (68) 97 98.2 07/14/18 14:27 54 07/14/18 12:00 Nasal Cannula 2.0 07/14/18 12:00 100.0 75 20 105/60 (75) 100 100.0 07/14/18 09:38 67 07/14/18 09:38 67 112/63 07/14/18 09:33 69 07/14/18 09:00 105/60 07/14/18 08:00 97.5 70 20 112/63 (79) 98 97.5 07/14/18 08:00 Nasal Cannula 2.0 Intake and Output 07/14/18 07/15/18 19:00 07:00 Intake Total 600 ml 407.384 ml Output Total 5900 ml 2850 ml Balance -5300 ml -2442.616 ml Intake Oral 600 ml 200 ml IV Total 207.384 ml Output Urine Total 5900 ml 2800 ml Stool Total 50 ml # Bowel Movements 1 Laboratory Tests 07/14/18 09:00: White Blood Count 6.6, Red Blood Count 4.06L, Hemoglobin 10.0L, Hematocrit 33.7L , Mean Corpuscular Volume 83, Mean Corpuscular Hemoglobin 24.7L, Mean Corpuscular Hemoglobin Concent 29.7L, Red Cell Distribution Width 15.0H, Platelet Count 158, Mean Platelet Volume 10.7H, Neutrophils (%) (Auto) 66.8, Lymphocytes (%) (Auto) 16.2L, Monocytes (%) (Auto) 13.4H, Eosinophils (%) (Auto ) 0.9, Basophils (%) (Auto) 2.7H, Sodium Level 141, Potassium Level 4.2, Chloride Level 107, Carbon Dioxide Level 26, Anion Gap 8, Blood Urea Nitrogen 39H, Creatinine 1.5H, Estimat Glomerular Filtration Rate , Glucose Level 109H, Lactic Acid Level 1.50, Calcium Level 8.6, Total Bilirubin 3.2H, Direct Bilirubin 1.0H, Aspartate Amino Transf (AST/SGOT) 36, Alanine Aminotransferase ( ALT/SGPT) 25, Alkaline Phosphatase 90, Troponin I 0.522H, Total Protein 7.8, Albumin 2.8L, Globulin 5.0, Albumin/Globulin Ratio 0.6L 07/15/18 07:10: White Blood Count 7.9, Red Blood Count 3.85L, Hemoglobin 9.9L, Hematocrit 32.4L , Mean Corpuscular Volume 84, Mean Corpuscular Hemoglobin 25.7L, Mean Corpuscular Hemoglobin Concent 30.6L, Red Cell Distribution Width 15.0H, Platelet Count 134L, Mean Platelet Volume 10.6H, Neutrophils (%) (Auto) 73.0, Lymphocytes (%) (Auto) 13.6L, Monocytes (%) (Auto) 11.5H, Eosinophils (%) (Auto ) 0.7, Basophils (%) (Auto) 1.2, Sodium Level [Pending], Potassium Level [ Pending], Chloride Level [Pending], Carbon Dioxide Level [Pending], Blood Urea Nitrogen [Pending], Creatinine [Pending], Estimat Glomerular Filtration Rate [ Pending], Glucose Level [Pending], Calcium Level [Pending], Total Bilirubin [ Pending], Aspartate Amino Transf (AST/SGOT) [Pending], Alanine Aminotransferase (ALT/SGPT) [Pending], Alkaline Phosphatase [Pending], Troponin I [Pending], Total Protein [Pending], Albumin [Pending], Globulin [Pending], Magnesium Level [Pending], Pro-B-Type Natriuretic Peptide [Pending] Height (Feet): 5 Height (Inches): 3.00 Weight (Pounds): 116 General Appearance: WD/WN, alert Neck: supple Cardiovascular: irregularly irregular Respiratory/Chest: chest wall non-tender, no respiratory distress, no accessory muscle use, decreased breath sounds Abdomen: normal bowel sounds, non tender, soft, no organomegaly Edema: no edema noted Arm (L), no edema noted Arm (R), no edema noted Leg (L), no edema noted Leg (R), no edema noted Pedal (L), no edema noted Pedal (R), no edema noted Generalized Palomo Frankel MD Jul 15, 2018 07:49
[2018-07-15 08:00] VITALS: BP 108/68
[2018-07-15 08:13] LABS: ALANINE AMINOTRANSFERASE 24 U/L (12-78); ALBUMIN 2.7 G/DL (3.4-5.0); ALBUMIN/GLOBULIN RATIO 0.6 (1.0-2.7); ALKALINE PHOSPHATASE 85 U/L (46-116); ANION GAP 9 mmol/L (5-15); ASPARTATE AMINO TRANSFERASE 33 U/L (15-37); BILIRUBIN,TOTAL 2.7 MG/DL (0.2-1.0); BLOOD UREA NITROGEN 32 mg/dL (7-18); CALCIUM 8.2 MG/DL (8.5-10.1); CARBON DIOXIDE 27 MMOL/L (21-32); CHLORIDE 104 MMOL/L (98-107); CREATININE 1.4 MG/DL (0.55-1.30); POTASSIUM 3.5 MMOL/L (3.5-5.1); SODIUM 140 MMOL/L (136-145)
[2018-07-15 09:25] LABS: BILIRUBIN,DIRECT 0.9 MG/DL (0.0-0.3)
[2018-07-15] MEDS: Aspirin Baby 81mg ORAL SCH (09:40)
[2018-07-15] MEDS: Carvedilol 12.5mg tab ORAL SCH ×2 (09:41→20:08)
[2018-07-15] MEDS: Spironolactone 25mg tab ORAL SCH (09:41)
[2018-07-15] MEDS: Digoxin 0.125mg tab ORAL SCH (09:41)
[2018-07-15] MEDS: Losartan 50mg tab ORAL SCH (09:42)
[2018-07-15] MEDS: Heparin 5000 units/ml inj SUBQ SCH ×2 (09:44→20:10)
[2018-07-15] MEDS: DOBUTamine 250mg/250ml Premix 250 ML IV SCH (09:54)
--- NOTE | 2018-07-15 11:30 | Progress Note ---
DATE: 07/14/2018 CARDIOLOGY PROGRESS NOTE SUBJECTIVE: The patient is still short of breath. She is unable to move out of bed without shortness of breath. She is negative over 2 L since admission. PICC line access was obtained due to poor peripheral access and need for inotropic therapy. Monitor, atrial fibrillation, now rate controlled following digitalization. OBJECTIVE: VITAL SIGNS: Blood pressure 104/50, heart rate 57, AFib with V-pacing. NECK: Jugular venous pressure greater than 10. LUNGS: Bilateral rales. HEART: Irregularly irregular rhythm. Normal S1, S2 with a 2/6 systolic apical murmur. There is a third heart sound. EXTREMITIES: There is 2 to 3+ bilateral pitting lower extremity edema. LABORATORY DATA: White count 6.6, hemoglobin 10. Potassium 4.2, BUN 39, creatinine 1.5. Lactic acid has decreased from 6.1 to 1.5. Troponin has increased to 0.522 with albumin 2.8. IMPRESSION: 1. Condition critical. Prognosis is guarded. The patient's son notified by telephone today of above. 2. Concern of cardiogenic shock. 3. Acute on chronic systolic congestive heart failure. 4. Cardiac defibrillator. 5. Paroxysmal atrial fibrillation. 6. History of sustained ventricular ectopy and sudden cardiac . 7. Resolved lactic acidosis. 8. Moderate protein-calorie malnutrition. 9. Acute myocardial infarction. PLAN: 1. Maintain current anti-failure regimen with titration now ongoing. 2. Continue digitalis for rate control. 3. Add dobutamine for inotropy. 4. Protein supplement. Due to gastrointestinal bleed. 5. Due to GI bleeding risk, no anticoagulation plan presently. 6. Recheck echocardiogram. Miguel Mason M.D. DR: Wilda JOB#: [id number] CC:
[2018-07-15 12:17] VITALS: BP 118/52
[2018-07-15 16:00] VITALS: BP 101/56
--- NOTE | 2018-07-15 17:00 | Consultation ---
DATE OF CONSULTATION: 07/14/2018 CARDIOLOGY CONSULT CONSULTING PHYSICIAN: Miguel Mason M.D. REFERRING PHYSICIAN: Palomo Frankel M.D. REASON FOR ADMISSION: Cardiogenic shock. HISTORY: This is an 83-year-old female with a known history of a non-ischemic dilated cardiomyopathy. Her ejection fraction . She has a biventricular cardiac defibrillator. She has a history of sudden cardiac as well as a history of recurring heart failure. She was hospitalized here for a couple of weeks ago with similar presentation, ultimately stabilized, and discharged home. She fared well up until the last few days when she became increasingly short of breath, edematous, dizzy, and lightheaded. Her appetite was poor. She could not take in all of her medications. As a result, she was seen in my office yesterday. She failed to respond to adjustments in her therapy and hospitalization has been initiated. PAST MEDICAL HISTORY: 1. Non-ischemic cardiomyopathy, cardiac defibrillator, systolic congestive heart failure, history of ventricular arrhythmias, paroxysmal atrial fibrillation, and hypertensive heart disease. 2. History of gastric carcinoma with resection. 3. Type 2 diabetes mellitus. 4. Diabetic neuropathy. 5. Hyperlipidemia. 6. Chronic anemia. 7. Anemia of chronic disease. 8. Chronic kidney disease. 9. Gastroesophageal reflux disease. ALLERGIES: Codeine. SOCIAL HISTORY: Negative for smoking, alcohol, or substance abuse. FAMILY HISTORY: Noncontributory. MEDICATIONS: Prior to admission, reviewed and reconciled. REVIEW OF SYSTEMS: There is no loss of hearing. There is no history of retinopathy. There is no history of blood clots in the legs. There is no history of seizure or stroke. She takes oral therapy for her diabetes. She is on anti-lipid therapy. She has a history of GI bleeding. She is unable to take anticoagulant as a result. She had an endoscopy about a year ago, which showed no recurrence of her gastric cancer. She is on antiarrhythmics for a combination of atrial or ventricular arrhythmias. She has had prior cardioversion. She has not tolerated amiodarone in the past due to distress. Her most recent echocardiogram revealed an ejection fraction of 25% with [id number] mitral and tricuspid regurgitation. PHYSICAL EXAMINATION: VITAL SIGNS: Blood pressure 131/96, heart rate 142, respirations 18, afebrile, and oxygen saturation on 2 liters 99%. NECK: Jugular venous pressure greater than 10. Accessory muscle use. LUNGS: Diminished breath sounds. Scattered rales. HEART: Irregularly irregular rhythm. Rapid rate. Normal S1 and S2. A 1/6 systolic murmur at apex. Point of maximum pulse is diffuse. Laterally displaced. ICD pocket site on the left chest wall. ABDOMEN: Soft and nontender. Mild ascites. EXTREMITIES: 2+ to 3+ lower extremity bilateral pitting edema. LABORATORY AND IMAGING DATA: White count 5.1 and hemoglobin 9.8. Lactic acid 6.1. Troponin 0.245. Pro-natriuretic peptide 12,597. BUN 42, creatinine 1.6, bicarb 18, sodium 137, potassium 5.1, and glucose 141. EKG, atrial fibrillation, rapid ventricular response, and nonspecific ST-T wave changes. Chest x-ray, pending. IMPRESSION: 1. Cardiogenic insufficiency, atrial fibrillation with rapid ventricular response, acute on chronic systolic congestive heart failure, cardiac defibrillator, lactic acidosis, acute myocardial ischemia, and possible [id number] myocardial infarction. 2. Acute on chronic renal failure. 3. Anemia, multifactorial. 4. Type 2 diabetes mellitus. 5. Condition critical. 6. Prognosis guarded. PLAN: Plan of care as outlined. Discussed with nursing staff. We will follow closely. May need inotropes and pressors if fails to respond to initial intervention. Miguel Mason M.D. DR: KLAUDIA JOB#: [id number] CC:
[2018-07-15 20:00] VITALS: BP 101/50
[2018-07-15] MEDS: Dyna-Hex 2% Top Sol 2oz TOPIC SCH (20:12)
[2018-07-16] VITALS: BP 101/63
[2018-07-16] MEDS: DOBUTamine 250mg/250ml Premix 250 ML IV SCH ×2 (03:00→18:00)
[2018-07-16 04:00] VITALS: BP 105/68
--- NOTE | 2018-07-16 05:45 | Progress Note ---
DATE: 07/15/2018 CARDIOLOGY PROGRESS NOTE SUBJECTIVE: The patient remains in critical condition with guarded prognosis on inotropic support intravenously with dopamine. Her response has been dramatic. She has diuresed 7 L. Her renal function has improved. Her blood pressure parameters remain stable. She continues to have a baseline rhythm of atrial fibrillation with ventricular pacing. PHYSICAL EXAMINATION: VITAL SIGNS: Blood pressure 101/50, pulse 80, respirations 20. LUNGS: Diminished breath sounds. Scattered rales. HEART: Irregularly irregular rhythm. Normal S1, S2. A 1/6 systolic apical murmur. ABDOMEN: Soft. EXTREMITIES: With 1+ edema. LABORATORY DATA: Potassium 3.5. Magnesium 1.3. Pro-natriuretic peptide 8700. Troponin 0.34. White count 7.9 and hemoglobin 9.9. IMPRESSION: 1. Cardiogenic shock, improved. 2. Acute on chronic systolic congestive heart failure. 3. Cardiac defibrillator. 4. Cardiomyopathy. 5. Paroxysmal atrial fibrillation. 6. Severe hypomagnesemia. 7. Acute myocardial infarction. 8. Moderate protein-calorie malnutrition. 9. Anemia due to iron deficiency. 10. Type 2 diabetes mellitus. 11. History of gastric carcinoma. PLAN: 1. Continue diuresis with dobutamine inotropic support. 2. Anticipate taper therapy over the next 24 to 48 hours once euvolemic. 3. Continue digoxin. 4. IV magnesium replacement. 5. Oral potassium replacement. 6. Protein supplement. Miguel Mason M.D. DR: NANDINI JOB#: [id number] CC:
--- NOTE | 2018-07-16 06:58 | General Progress Note ---
Assessment/Plan Problem List: (1) Elevated troponin (2) Chest pain ICD Codes: R07.9 - Chest pain, unspecified SNOMED: 13208819 (3) ICD (implantable cardiac defibrillator) discharge ICD Codes: Z03.89 - ICD (implantable cardiac defibrillator) discharge SNOMED: 158207905 (4) CHF exacerbation ICD Codes: I50.9 - CHF exacerbation SNOMED: 99741938 (5) ACS (acute coronary syndrome) ICD Codes: I20.0 - Unstable angina SNOMED: 782343111 (6) Gastric cancer ICD Codes: C16.9 - Malignant neoplasm of stomach, unspecified SNOMED: 026953358 (7) CHF exacerbation ICD Codes: I50.9 - Heart failure, unspecified SNOMED: 49352347 (8) Paroxysmal a-fib ICD Codes: I48.0 - Paroxysmal a-fib SNOMED: 513021649 Assessment/Plan follow up pending labs replace lytes as needed diuresis dobutamine rate control with b-gem stress ulcer prophylaxis Subjective ROS Limited/Unobtainable: No Constitutional: Reports: malaise, weakness HEENT: Reports: no symptoms Cardiovascular: Reports: no symptoms Respiratory: Reports: orthopnea, shortness of breath Gastrointestinal/Abdominal: Reports: no symptoms Genitourinary: Reports: no symptoms Neurologic/Psychiatric: Reports: no symptoms Endocrine: Reports: no symptoms Hematologic/Lymphatic: Reports: no symptoms Allergies: Coded Allergies: CODEINE (Verified Allergy, Unknown, 06/17/18) All Systems: reviewed and negative except above Subjective resting. no new complaints. decreased sob. no chest pain on dobutamine drip. HR controlled. Objective Last 24 Hour Vital Signs Date Time Temp Pulse Resp B/P (MAP) Pulse Ox O2 Delivery O2 Flow Rate FiO2 07/16/18 04:00 98.1 76 16 105/68 (80) 100 98.1 07/16/18 04:00 Nasal Cannula 2.0 07/16/18 04:00 88 07/16/18 03:00 101/63 07/16/18 00:00 75 07/16/18 00:00 98.6 88 18 101/63 (76) 100 98.6 07/16/18 00:00 Nasal Cannula 2.0 07/15/18 20:08 75 07/15/18 20:00 98.5 80 20 101/50 (67) 99 98.5 07/15/18 20:00 Nasal Cannula 2.0 07/15/18 20:00 84 07/15/18 16:23 56 07/15/18 16:00 Nasal Cannula 2.0 07/15/18 16:00 98.4 89 18 101/56 (71) 99 98.4 07/15/18 13:30 70 07/15/18 12:17 97.9 87 20 118/52 (74) 100 97.9 07/15/18 12:00 Nasal Cannula 2.0 07/15/18 09:54 108/68 07/15/18 09:42 108/07/15/18 09:41 72 07/15/18 09:41 72 /07/15/18 08:35 72 07/15/18 08:00 Nasal Cannula 2.0 07/15/18 08:00 98.0 85 19 108/68 (81) 100 98.0 Intake and Output 07/15/18 07/16/18 19:00 07:00 Intake Total 407.384 ml 638.256 ml Output Total 3200 ml Balance 407.384 ml -2561.744 ml Intake Oral 200 ml 100 ml IV Total 207.384 ml 538.256 ml Output Urine Total 3200 ml # Bowel Movements 100 Laboratory Tests 07/15/18 07:10: White Blood Count 7.9, Red Blood Count 3.85L, Hemoglobin 9.9L, Hematocrit 32.4L , Mean Corpuscular Volume 84, Mean Corpuscular Hemoglobin 25.7L, Mean Corpuscular Hemoglobin Concent 30.6L, Red Cell Distribution Width 15.0H, Platelet Count 134L, Mean Platelet Volume 10.6H, Neutrophils (%) (Auto) 73.0, Lymphocytes (%) (Auto) 13.6L, Monocytes (%) (Auto) 11.5H, Eosinophils (%) (Auto ) 0.7, Basophils (%) (Auto) 1.2, Sodium Level 140, Potassium Level 3.5, Chloride Level 104, Carbon Dioxide Level 27, Anion Gap 9, Blood Urea Nitrogen 32H, Creatinine 1.4H, Estimat Glomerular Filtration Rate , Glucose Level 148H, Calcium Level 8.2L, Magnesium Level 1.3L, Total Bilirubin 2.7H, Direct Bilirubin 0.9H, Aspartate Amino Transf (AST/SGOT) 33, Alanine Aminotransferase ( ALT/SGPT) 24, Alkaline Phosphatase 85, Troponin I 0.240H, Pro-B-Type Natriuretic Peptide 8732H, Total Protein 7.6, Albumin 2.7L, Globulin 4.9, Albumin/Globulin Ratio 0.6L 07/16/18 05:30: White Blood Count [Pending], Red Blood Count [Pending], Hemoglobin [Pending], Hematocrit [Pending], Mean Corpuscular Volume [Pending], Mean Corpuscular Hemoglobin [Pending], Mean Corpuscular Hemoglobin Concent [Pending], Red Cell Distribution Width [Pending], Platelet Count [Pending], Mean Platelet Volume [ Pending], Neutrophils (%) (Auto) [Pending], Lymphocytes (%) (Auto) [Pending], Monocytes (%) (Auto) [Pending], Eosinophils (%) (Auto) [Pending], Basophils (%) (Auto) [Pending], Sodium Level [Pending], Potassium Level [Pending], Chloride Level [Pending], Carbon Dioxide Level [Pending], Blood Urea Nitrogen [Pending], Creatinine [Pending], Estimat Glomerular Filtration Rate [Pending], Glucose Level [Pending], Calcium Level [Pending], Total Bilirubin [Pending], Aspartate Amino Transf (AST/SGOT) [Pending], Alanine Aminotransferase (ALT/SGPT) [Pending] , Alkaline Phosphatase [Pending], Pro-B-Type Natriuretic Peptide [Pending], Total Protein [Pending], Albumin [Pending], Globulin [Pending] Height (Feet): 5 Height (Inches): 3.00 Weight (Pounds): 115 General Appearance: WD/WN, alert Neck: supple Cardiovascular: regular rhythm Respiratory/Chest: chest wall non-tender, lungs clear, normal breath sounds Abdomen: normal bowel sounds, non tender, soft, no organomegaly Edema: no edema noted Arm (L), no edema noted Arm (R), no edema noted Leg (L), no edema noted Leg (R), no edema noted Pedal (L), no edema noted Pedal (R), no edema noted Generalized Palomo Frankel MD Jul 16, 2018 06:58
[2018-07-16 07:06] LABS: BASOPHILS % (AUTO) 1.4 % (0.0-2.0); EOSINOPHILS % (AUTO) 1.7 % (0.0-3.0); HEMATOCRIT 33.8 % (37.0-47.0); HEMOGLOBIN 10.2 G/DL (12.0-16.0); LYMPHOCYTES % (AUTO) 19.3 % (20.0-45.0); MEAN CORPUSCULAR VOLUME 84 FL (80-99); MONOCYTES % (AUTO) 13.8 % (1.0-10.0); NEUTROPHILS % (AUTO) 63.8 % (45.0-75.0); PLATELET COUNT 143 K/UL (150-450); RED BLOOD COUNT 4.04 M/UL (4.20-5.40); RED CELL DISTRIBUTION WIDTH 15.6 % (11.6-14.8)
[2018-07-16 07:16] LABS: ALANINE AMINOTRANSFERASE 23 U/L (12-78); ALBUMIN 2.7 G/DL (3.4-5.0); ALBUMIN/GLOBULIN RATIO 0.5 (1.0-2.7); ALKALINE PHOSPHATASE 90 U/L (46-116); ANION GAP 4 mmol/L (5-15); ASPARTATE AMINO TRANSFERASE 35 U/L (15-37); BILIRUBIN,TOTAL 2.2 MG/DL (0.2-1.0); BLOOD UREA NITROGEN 25 mg/dL (7-18); CARBON DIOXIDE 33 MMOL/L (21-32); CHLORIDE 101 MMOL/L (98-107); POTASSIUM 3.4 MMOL/L (3.5-5.1); SODIUM 138 MMOL/L (136-145)
[2018-07-16 07:18] LABS: BILIRUBIN,DIRECT 0.7 MG/DL (0.0-0.3)
[2018-07-16 08:00] VITALS: BP 100/53
[2018-07-16] MEDS: Losartan 50mg tab ORAL SCH (09:35)
[2018-07-16] MEDS: Aspirin Baby 81mg ORAL SCH (09:35)
[2018-07-16] MEDS: Carvedilol 12.5mg tab ORAL SCH ×2 (09:36→21:52)
[2018-07-16] MEDS: Digoxin 0.125mg tab ORAL SCH (09:36)
[2018-07-16] MEDS: Spironolactone 25mg tab ORAL SCH (09:36)
[2018-07-16] MEDS: Heparin 5000 units/ml inj SUBQ SCH ×2 (09:37→21:54)
[2018-07-16 12:00] VITALS: BP 101/43
[2018-07-16 16:00] VITALS: BP 97/55
[2018-07-16 20:00] VITALS: BP 113/58
[2018-07-16] MEDS: Dyna-Hex 2% Top Sol 2oz TOPIC SCH (21:52)
[2018-07-17] VITALS: BP 104/57
--- NOTE | 2018-07-17 02:15 | Progress Note ---
DATE: 07/16/2018 CARDIOLOGY PROGRESS NOTE SUBJECTIVE: The patient has responded remarkably well to dobutamine at low dosage. Her inotrope negative now over 13 L. OBJECTIVE: VITAL SIGNS: Blood pressure 113/58, pulse 71, and respiratory rate 20. Monitored rhythm, paced. LUNGS: Clear breath sounds. CARDIAC: Regular rhythm and rate. Normal S1, paradoxically split S2, and a 1/6 systolic apical murmur. ABDOMEN: Soft. EXTREMITIES: Trace residual edema. LABORATORY DATA: White count 7 and hemoglobin 10. BUN is 25 and creatinine 1. Magnesium is 1.3 yesterday. Pro-natriuretic peptide has decreased to 4800. IMPRESSION: Significantly improved with underlying severe cardiomyopathy with systolic dysfunction as well as cardiac defibrillator still with hypokalemia and hypomagnesemia, but actual improvement in renal parameters. PLAN: 1. Decrease diuretics. 2. Continue dobutamine for now. 3. Protein supplement. 4. Electrolyte replacement including magnesium. 5. Titrate anti-failure and anti-ischemic regimen. Miguel Mason M.D. DR: KAILASH JOB#: [id number] CC:
[2018-07-17 04:00] VITALS: BP 118/63
[2018-07-17 05:42] LABS: ALANINE AMINOTRANSFERASE 21 U/L (12-78); ALBUMIN 2.7 G/DL (3.4-5.0); ALBUMIN/GLOBULIN RATIO 0.5 (1.0-2.7); ALKALINE PHOSPHATASE 86 U/L (46-116); ANION GAP 1 mmol/L (5-15); ASPARTATE AMINO TRANSFERASE 28 U/L (15-37); BILIRUBIN,TOTAL 2.2 MG/DL (0.2-1.0); BLOOD UREA NITROGEN 17 mg/dL (7-18); CALCIUM 7.7 MG/DL (8.5-10.1); CARBON DIOXIDE 35 MMOL/L (21-32); CHLORIDE 98 MMOL/L (98-107); CREATININE 0.9 MG/DL (0.55-1.30); POTASSIUM 3.3 MMOL/L (3.5-5.1); SODIUM 134 MMOL/L (136-145)
[2018-07-17 05:45] LABS: BILIRUBIN,DIRECT 0.8 MG/DL (0.0-0.3)
[2018-07-17 08:25] VITALS: BP 107/57
[2018-07-17] MEDS: Heparin 5000 units/ml inj SUBQ SCH ×2 (08:30→20:42)
[2018-07-17] MEDS: Aspirin Baby 81mg ORAL SCH (08:32)
[2018-07-17] MEDS: Carvedilol 12.5mg tab ORAL SCH ×2 (08:33→20:40)
[2018-07-17] MEDS: Spironolactone 25mg tab ORAL SCH (08:33)
[2018-07-17] MEDS: Digoxin 0.125mg tab ORAL SCH (08:33)
--- NOTE | 2018-07-17 08:43 | General Progress Note ---
Assessment/Plan Problem List: (1) Elevated troponin (2) Chest pain ICD Codes: R07.9 - Chest pain, unspecified SNOMED: 44188803 (3) ICD (implantable cardiac defibrillator) discharge ICD Codes: Z03.89 - ICD (implantable cardiac defibrillator) discharge SNOMED: 314459307 (4) CHF exacerbation ICD Codes: I50.9 - CHF exacerbation SNOMED: 67016607 (5) ACS (acute coronary syndrome) ICD Codes: I20.0 - Unstable angina SNOMED: 105776594 (6) Gastric cancer ICD Codes: C16.9 - Malignant neoplasm of stomach, unspecified SNOMED: 071884097 (7) CHF exacerbation ICD Codes: I50.9 - Heart failure, unspecified SNOMED: 33017090 (8) Paroxysmal a-fib ICD Codes: I48.0 - Paroxysmal a-fib SNOMED: 503365969 Status: stable, progressing Assessment/Plan labs reviewed - low k replace lytes as needed diuresis rate control with b-gem stress ulcer prophylaxis Subjective ROS Limited/Unobtainable: No Constitutional: Reports: malaise, weakness HEENT: Reports: no symptoms Cardiovascular: Reports: no symptoms Respiratory: Reports: cough Gastrointestinal/Abdominal: Reports: no symptoms Genitourinary: Reports: no symptoms Neurologic/Psychiatric: Reports: no symptoms Endocrine: Reports: no symptoms Hematologic/Lymphatic: Reports: no symptoms Allergies: Coded Allergies: CODEINE (Verified Allergy, Unknown, 06/17/18) All Systems: reviewed and negative except above Subjective less sob. no chest pain mild nausea. no abd pain Objective Last 24 Hour Vital Signs Date Time Temp Pulse Resp B/P (MAP) Pulse Ox O2 Delivery O2 Flow Rate FiO2 07/17/18 08:33 86 07/17/18 08:33 86 107/57 07/17/18 08:25 97.8 86 20 107/57 (74) 100 97.8 07/17/18 04:00 Nasal Cannula 2.0 07/17/18 04:00 98.0 101 20 118/63 (81) 96 98.0 07/17/18 04:00 85 07/17/18 00:00 Nasal Cannula 2.0 07/17/18 00:00 81 07/17/18 00:00 98.4 71 20 104/57 (73) 100 98.4 07/16/18 21:52 71 113/58 10/5/18 20:00 97.9 71 20 113/58 (76) 100 97.9 07/16/18 20:00 Nasal Cannula 2.0 07/16/18 19:33 76 07/16/18 18:00 97/55 07/16/18 16:00 Nasal Cannula 2.0 07/16/18 16:00 97.7 61 20 97/55 (69) 99 97.7 07/16/18 15:12 76 07/16/18 12:00 98.6 85 20 101/43 (62) 100 98.6 07/16/18 12:00 Nasal Cannula 2.0 07/16/18 11:47 68 07/16/18 09:36 75 07/16/18 09:36 75 100/53 07/16/18 09:35 100/53 Intake and Output 07/16/18 07/17/18 19:00 07:00 Intake Total 430.102 ml 507.384 ml Output Total 1400 ml 1630 ml Balance -969.898 ml -1122.616 ml Intake Oral 240 ml 300 ml IV Total 190.102 ml 207.384 ml Output Urine Total 1400 ml 1600 ml Stool Total 30 ml # Bowel Movements 50 Laboratory Tests 07/17/18 03:20: Sodium Level 134L, Potassium Level 3.3L, Chloride Level 98, Carbon Dioxide Level 35H, Anion Gap 1L, Blood Urea Nitrogen 17, Creatinine 0.9, Estimat Glomerular Filtration Rate , Glucose Level 160H, Calcium Level 7.7L, Magnesium Level 2.9H, Total Bilirubin 2.2H, Direct Bilirubin 0.8H, Aspartate Amino Transf (AST/SGOT) 28, Alanine Aminotransferase (ALT/SGPT) 21, Alkaline Phosphatase 86, Total Protein 7.8, Albumin 2.7L, Globulin 5.1, Albumin/Globulin Ratio 0.5L Height (Feet): 5 Height (Inches): 3.00 Weight (Pounds): 114 Objective General Appearance: WD/WN, alert Neck: supple Cardiovascular: regular rhythm Respiratory/Chest: chest wall non-tender, lungs clear, normal breath sounds Abdomen: normal bowel sounds, non tender, soft, no organomegaly Edema: no edema noted Arm (L), no edema noted Arm (R), no edema noted Leg (L), no edema noted Leg (R), no edema noted Pedal (L), no edema noted Pedal (R), no edema noted Generalized Palomo Frankel MD Jul 17, 2018 08:43
[2018-07-17 11:00] VITALS: BP 101/64
[2018-07-17] MEDS: Losartan 50mg tab ORAL SCH (11:05)
[2018-07-17] MEDS ORDERED: NS 275ml ONE (15:03)
[2018-07-17] MEDS ORDERED: Tubing IV Secondary IV ONE (15:03)
[2018-07-17 16:00] VITALS: BP 93/58
[2018-07-17] MEDS: DOBUTamine 250mg/250ml Premix 250 ML IV SCH (17:27)
[2018-07-17 20:00] VITALS: BP 90/50
[2018-07-17] MEDS: Dyna-Hex 2% Top Sol 2oz TOPIC SCH (20:40)
[2018-07-18] VITALS: BP 100/52
--- NOTE | 2018-07-18 03:15 | Progress Note ---
DATE: 07/17/2018 CARDIOLOGY PROGRESS NOTE SUBJECTIVE: The patient continues to respond quite well to dobutamine drip, negative over 11 liters. Weight is down 6 pounds. Renal function has dramatically improved to BUN of 17 and creatinine 0.9. OBJECTIVE: VITAL SIGNS: Blood pressure is 90/50, pulse 79, and respirations 18. Monitored rhythm, paced. LUNGS: Clear. CARDIAC: Irregularly irregular. Normal S1, S2. A 1/6 systolic apical murmur. ABDOMEN: Soft. EXTREMITIES: No edema. IMPRESSION: 1. Significant improvement in cardiogenic shock and resolution of acute on chronic systolic congestive heart failure. 2. Cardiac defibrillator. 3. Atrial fibrillation. 4. Ventricular tachycardia. 5. Type 2 diabetes mellitus. PLAN: 1. Transition to oral diuretic. 2. Titrate dosing. 3. Anticipate discontinuation of dobutamine over the next 24 hours. 4. Mobilize the discharge plan and review soon. Miguel Mason M.D. DR: YOLETTE JOB#: [id number] CC:
[2018-07-18 04:00] VITALS: BP 118/68
[2018-07-18 06:35] LABS: BASOPHILS % (AUTO) 1.7 % (0.0-2.0); EOSINOPHILS % (AUTO) 2.5 % (0.0-3.0); HEMATOCRIT 36.1 % (37.0-47.0); LYMPHOCYTES % (AUTO) 21.4 % (20.0-45.0); MEAN CORPUSCULAR VOLUME 85 FL (80-99); MONOCYTES % (AUTO) 13.2 % (1.0-10.0); NEUTROPHILS % (AUTO) 61.2 % (45.0-75.0); PLATELET COUNT 158 K/UL (150-450); RED BLOOD COUNT 4.25 M/UL (4.20-5.40); RED CELL DISTRIBUTION WIDTH 15.4 % (11.6-14.8); WHITE BLOOD COUNT 7.1 K/UL (4.8-10.8)
[2018-07-18 07:38] LABS: ANION GAP 4 mmol/L (5-15); BLOOD UREA NITROGEN 18 mg/dL (7-18); CALCIUM 8.6 MG/DL (8.5-10.1); CARBON DIOXIDE 33 MMOL/L (21-32); CHLORIDE 99 MMOL/L (98-107); POTASSIUM 4.4 MMOL/L (3.5-5.1); SODIUM 135 MMOL/L (136-145)
[2018-07-18 08:00] VITALS: BP 114/58
[2018-07-18] MEDS: Carvedilol 12.5mg tab ORAL SCH ×2 (09:00→20:50)
[2018-07-18] MEDS: Furosemide 40mg tab ORAL SCH ×2 (09:00→12:53)
[2018-07-18] MEDS: Spironolactone 25mg tab ORAL SCH (09:00)
[2018-07-18] MEDS: Aspirin Baby 81mg ORAL SCH (09:26)
[2018-07-18] MEDS: Losartan 50mg tab ORAL SCH (09:26)
[2018-07-18] MEDS: Digoxin 0.125mg tab ORAL SCH (09:26)
[2018-07-18] MEDS: Heparin 5000 units/ml inj SUBQ SCH ×2 (09:28→20:52)
[2018-07-18 12:00] VITALS: BP 100/55
[2018-07-18] MEDS ORDERED: DOBUTamine 250mg/250ml Premix 250 ML IV SCH (12:00)
--- NOTE | 2018-07-18 12:14 | Diagnostic Imaging Report ---
Chest PA and lateral views INDICATION: Chest pain COMPARISON: Chest x-ray dated 07/14/08 FINDINGS: PA and lateral views of the chest are obtained. Left chest wall pacemaker with leads in place. Prominent heart size. Lungs are clear. Slight elevation of the right hemidiaphragm. No pleural effusions. Bony elements are within normal limits. IMPRESSION: No significant change. Left chest wall pacemaker with leads in place. Elevation of the right hemidiaphragm.
[2018-07-18 16:00] VITALS: BP 95/62
--- NOTE | 2018-07-18 16:08 | General Progress Note ---
Assessment/Plan Problem List: (1) Elevated troponin (2) Chest pain ICD Codes: R07.9 - Chest pain, unspecified SNOMED: 66980972 (3) ICD (implantable cardiac defibrillator) discharge ICD Codes: Z03.89 - ICD (implantable cardiac defibrillator) discharge SNOMED: 474870709 (4) CHF exacerbation ICD Codes: I50.9 - CHF exacerbation SNOMED: 53332997 (5) ACS (acute coronary syndrome) ICD Codes: I20.0 - Unstable angina SNOMED: 684755777 (6) Gastric cancer ICD Codes: C16.9 - Malignant neoplasm of stomach, unspecified SNOMED: 855737990 (7) CHF exacerbation ICD Codes: I50.9 - Heart failure, unspecified SNOMED: 79347421 (8) Paroxysmal a-fib ICD Codes: I48.0 - Paroxysmal a-fib SNOMED: 091674350 Status: stable, progressing Assessment/Plan dobutamine per cards prn diuresis monitor labs improved mobilize pt/ot Subjective ROS Limited/Unobtainable: No Constitutional: Reports: weakness HEENT: Reports: no symptoms Cardiovascular: Reports: no symptoms Respiratory: Reports: no symptoms Gastrointestinal/Abdominal: Reports: no symptoms Genitourinary: Reports: no symptoms Neurologic/Psychiatric: Reports: no symptoms Endocrine: Reports: no symptoms Hematologic/Lymphatic: Reports: no symptoms Allergies: Coded Allergies: CODEINE (Verified Allergy, Unknown, 06/17/18) All Systems: reviewed and negative except above Subjective feels better. c/o mild headache. no numbness or weakness. no sob. Objective Last 24 Hour Vital Signs Date Time Temp Pulse Resp B/P (MAP) Pulse Ox O2 Delivery O2 Flow Rate FiO2 07/18/18 12:00 98.4 74 18 100/55 (70) 99 98.4 07/18/18 12:00 97 07/18/18 12:00 Room Air 07/18/18 11:54 114/58 07/18/18 09:26 114/58 07/18/18 09:26 92 07/18/18 09:00 92 114/58 07/18/18 08:00 97.9 98 20 114/58 (76) 98 97.9 07/18/18 08:00 108 07/18/18 08:00 Room Air 07/18/18 04:00 97.7 83 18 118/68 (85) 93 97.7 07/18/18 04:00 Room Air 07/18/18 03:34 95 07/18/18 00:00 98.2 74 18 100/52 (68) 99 98.2 07/18/18 00:00 Room Air 07/17/18 23:40 99 07/17/18 20:40 79 90/50 07/17/18 20:00 97.9 79 18 90/50 (63) 98 97.9 07/17/18 20:00 Room Air 07/17/18 20:00 82 07/17/18 17:27 93/58 07/17/18 16:00 78 07/17/18 16:00 Nasal Cannula 2.0 07/17/18 16:00 98.4 65 20 93/58 (70) 100 98.4 Intake and Output 07/17/18 07/18/18 19:00 07:00 Intake Total 811.842 ml 307.384 ml Output Total 900 ml 400 ml Balance -88.158 ml -92.616 ml Intake Oral 760 ml 100 ml IV Total 51.842 ml 207.384 ml Output Urine Total 900 ml 400 ml # Bowel Movements 2 2 Laboratory Tests 07/18/18 04:55: White Blood Count 7.1, Red Blood Count 4.25, Hemoglobin 11.0L, Hematocrit 36.1L , Mean Corpuscular Volume 85, Mean Corpuscular Hemoglobin 25.8L, Mean Corpuscular Hemoglobin Concent 30.3L, Red Cell Distribution Width 15.4H, Platelet Count 158, Mean Platelet Volume 9.8, Neutrophils (%) (Auto) 61.2, Lymphocytes (%) (Auto) 21.4, Monocytes (%) (Auto) 13.2H, Eosinophils (%) (Auto) 2.5, Basophils (%) (Auto) 1.7, Sodium Level 135L, Potassium Level 4.4, Chloride Level 99, Carbon Dioxide Level 33H, Anion Gap 4L, Blood Urea Nitrogen 18, Creatinine 1.0, Estimat Glomerular Filtration Rate , Glucose Level 110H, Calcium Level 8.6, Pro-B-Type Natriuretic Peptide 2553H Height (Feet): 5 Height (Inches): 3.00 Weight (Pounds): 115 General Appearance: WD/WN, alert Neck: supple Cardiovascular: normal rate Respiratory/Chest: chest wall non-tender, lungs clear, normal breath sounds, no respiratory distress Abdomen: normal bowel sounds, non tender, soft, no organomegaly Neurologic: drive thru order taker II-XII grossly normal, no motor/sensory deficits, alert, oriented x 3, responsive Objective General Appearance: WD/WN, alert Neck: supple Cardiovascular: regular rhythm Respiratory/Chest: chest wall non-tender, lungs clear, normal breath sounds Abdomen: normal bowel sounds, non tender, soft, no organomegaly Edema: no edema noted Arm (L), no edema noted Arm (R), no edema noted Leg (L), no edema noted Leg (R), no edema noted Pedal (L), no edema noted Pedal (R), no edema noted Generalized Palomo Frankel MD Jul 18, 2018 16:08
[2018-07-18 20:00] VITALS: BP 100/66
[2018-07-18] MEDS: Dyna-Hex 2% Top Sol 2oz TOPIC SCH (20:50)
[2018-07-19] VITALS: BP 106/50
--- NOTE | 2018-07-19 00:15 | Progress Note ---
DATE: 07/18/2018 CARDIOLOGY PROGRESS NOTE SUBJECTIVE: The patient feels better. She has diuresed over 11 liters. Her blood pressure is stabilized. She remains with a paced rhythm. Her leg swelling and abdominal bloating have resolved and she is not short of breath. Today because of the above, she has refused to take her Lasix pill/furosemide. This has been a recurring problem in the past. On feeling well, she has not taken her medications thinking she does not need it. She has been educated repeatedly regarding these implications that was again emphasized today and the patient agreed to take until this afternoon. OBJECTIVE: VITAL SIGNS: Blood pressure 100/55, pulse 74, respiratory rate 18, afebrile. LUNGS: Clear. CARDIAC: Regular. Normal S1, paradoxically split S2. A 1/6 systolic apical murmur. ABDOMEN: Soft, no edema. LABORATORY AND DIAGNOSTIC DATA: Chest x-ray reveals left pacemaker with elevated right hemidiaphragm. White count 7.1, hemoglobin 11. Pro-natriuretic peptide is 2500 down from over 10,000. BUN 18, creatinine 1. IMPRESSION: Euvolemic with severe underlying cardiomyopathy and systolic dysfunction. PLAN: 1. Titrate maintenance therapy dose. 2. Reinforced patient regarding compliance issue on needs for maintenance medications in this setting. 3. Discontinue IV dobutamine over the next 12 hours and an advanced mobilization. Miguel Mason M.D. DR: CADE JOB#: [id number] CC:
[2018-07-19 04:00] VITALS: BP 102/56
--- NOTE | 2018-07-19 07:35 | Cardiology Report ---
APPROVED REPORT EXAM: Two-dimensional and M-mode echocardiogram with Doppler and color Doppler. INDICATION Acute myocardial infarction M-Mode DIMENSIONS IVSd0.9 (0.7-1.1cm)Left Atrium (MM)5.2 (1.6-4.0cm) LVDd5.3 (3.5-5.6cm)Aortic Root2.3 (2.0-3.7cm) PWd0.8 (0.7-1.1cm)Aortic Cusp Exc.1.8 (1.5-2.0cm) LVDs5.1 (2.5-4.0cm) PWs1.2 cm Normal left ventricular chamber size. Global left ventricular hypokinesis. Left ventricular ejection fraction estimated to be 30 %. No evidence of left ventricular hypertrophy. Moderate pleural effusion. Mild bi-atrial enlargement. Mild right ventricular enlargement. Mild focal aortic valve sclerosis with adequate cusp excursion. Mildly thickened mitral valve leaflets with normal excursion. Moderate mitral annulus and aortic root calcification. Normal pulmonic valve structure. Normal tricuspid valve structure. IVC dilated at 2.8 cm with physiological collapse, suggestive of increased RA pressure. Probable pacemaker wire present in the right side chambers. A color flow and spectral Doppler study was performed and revealed: Mild aortic insufficiency. Moderate mitral regurgitation. Mitral inflow indicates increased left atrial pressure, suggestive restrictive pattern (Grade III). Severe tricuspid regurgitation. Tricuspid systolic velocities suggests peak right ventricular systolic pressure of 63 mmHg, consistent with severe pulmonary hypertension. No pulmonic regurgitation present.
--- NOTE | 2018-07-19 07:59 | General Progress Note ---
Assessment/Plan Problem List: (1) Elevated troponin (2) Chest pain ICD Codes: R07.9 - Chest pain, unspecified SNOMED: 10812770 (3) ICD (implantable cardiac defibrillator) discharge ICD Codes: Z03.89 - ICD (implantable cardiac defibrillator) discharge SNOMED: 350600595 (4) CHF exacerbation ICD Codes: I50.9 - CHF exacerbation SNOMED: 21346315 (5) ACS (acute coronary syndrome) ICD Codes: I20.0 - Unstable angina SNOMED: 453112290 (6) Gastric cancer ICD Codes: C16.9 - Malignant neoplasm of stomach, unspecified SNOMED: 889962880 (7) CHF exacerbation ICD Codes: I50.9 - Heart failure, unspecified SNOMED: 59743304 (8) Paroxysmal a-fib ICD Codes: I48.0 - Paroxysmal a-fib SNOMED: 154472582 Status: stable, progressing Assessment/Plan dobutamine per cards prn diuresis monitor labs improved mobilize pt/ot dc planning Subjective ROS Limited/Unobtainable: No Constitutional: Reports: malaise, weakness HEENT: Reports: no symptoms Cardiovascular: Reports: no symptoms Respiratory: Reports: shortness of breath Gastrointestinal/Abdominal: Reports: poor appetite Genitourinary: Reports: no symptoms Neurologic/Psychiatric: Reports: anxiety, depressed Endocrine: Reports: no symptoms Hematologic/Lymphatic: Reports: no symptoms Allergies: Coded Allergies: CODEINE (Verified Allergy, Unknown, 06/17/18) All Systems: reviewed and negative except above Subjective no change. feels "better." compliant with rx Objective Last 24 Hour Vital Signs Date Time Temp Pulse Resp B/P (MAP) Pulse Ox O2 Delivery O2 Flow Rate FiO2 07/19/18 04:00 Room Air 07/19/18 04:00 98.4 76 20 102/56 (71) 99 98.4 07/19/18 03:38 80 07/19/18 00:00 Room Air 07/19/18 00:00 84 07/19/18 00:00 97.5 80 20 106/50 (68) 100 97.5 07/18/18 20:50 82 100/82 07/18/18 20:00 104 07/18/18 20:00 Room Air 07/18/18 20:00 97.7 82 20 100/66 (77) 100 97.7 07/18/18 16:00 97.9 78 18 95/62 (73) 100 97.9 07/18/18 16:00 90 07/18/18 16:00 Room Air 07/18/18 16:00 Room Air 07/18/18 12:00 98.4 74 18 100/55 (70) 99 98.4 07/18/18 12:00 97 07/18/18 12:00 Room Air 07/18/18 11:54 114/58 07/18/18 09:26 114/58 07/18/18 09:26 92 07/18/18 09:00 92 114/58 07/18/18 08:00 97.9 98 20 114/58 (76) 98 97.9 07/18/18 08:00 108 07/18/18 08:00 Room Air Intake and Output 07/18/18 07/19/18 19:00 07:00 Intake Total 705.538 ml 211.410 ml Output Total 850 ml 1550 ml Balance -144.462 ml -1338.590 ml Intake Oral 450 ml 125 ml IV Total 255.538 ml 86.410 ml Output Urine Total 850 ml 1550 ml # Bowel Movements 4 4 Height (Feet): 5 Height (Inches): 3.00 Weight (Pounds): 114 Objective General Appearance: WD/WN, alert Neck: supple Cardiovascular: regular rhythm Respiratory/Chest: chest wall non-tender, lungs clear, normal breath sounds Abdomen: normal bowel sounds, non tender, soft, no organomegaly Edema: no edema noted Arm (L), no edema noted Arm (R), no edema noted Leg (L), no edema noted Leg (R), no edema noted Pedal (L), no edema noted Pedal (R), no edema noted Generalized Palomo Frankel MD Jul 19, 2018 07:59
[2018-07-19 08:00] VITALS: BP_SYST 152; BP_SYST 92; BP_DIAS 54; BP_DIAS 79
[2018-07-19] MEDS: Aspirin Baby 81mg ORAL SCH (09:05)
[2018-07-19] MEDS: Heparin 5000 units/ml inj SUBQ SCH ×2 (09:05→21:16)
[2018-07-19] MEDS: Spironolactone 25mg tab ORAL SCH (09:05)
[2018-07-19] MEDS: Furosemide 40mg tab ORAL SCH (09:06)
[2018-07-19] MEDS: Carvedilol 12.5mg tab ORAL SCH ×2 (09:07→21:00)
[2018-07-19] MEDS: Digoxin 0.125mg tab ORAL SCH (09:07)
[2018-07-19] MEDS: Losartan 50mg tab ORAL SCH (09:08)
[2018-07-19 12:00] VITALS: BP 89/41
[2018-07-19 16:54] VITALS: BP 112/49
[2018-07-19 20:00] VITALS: BP 100/53
[2018-07-19] MEDS: Dyna-Hex 2% Top Sol 2oz TOPIC SCH (20:00)
[2018-07-20] VITALS: BP 100/52
[2018-07-20 04:00] VITALS: BP 103/55
[2018-07-20 07:04] LABS: APPEARANCE,URINE CLEAR; BILIRUBIN, URINE NEGATIVE (NEGATIVE); GLUCOSE, URINE (UA) NEGATIVE (NEGATIVE); KETONES,URINE NEGATIVE (NEGATIVE); LEUKOCYTE ESTERASE ,URINE 1+ (NEGATIVE); NITRITE,URINE NEGATIVE (NEGATIVE); PH,URINE 6 (4.5-8.0); PROTEIN,URINE 2+ (NEGATIVE); UROBILINOGEN,URINE 8 MG/DL (0.0-1.0)
[2018-07-20 07:14] LABS: COLOR,URINE YELLOW
[2018-07-20 08:00] VITALS: BP 118/68
[2018-07-20] MEDS: Digoxin 0.125mg tab ORAL SCH (08:54)
[2018-07-20] MEDS: Losartan 50mg tab ORAL SCH (08:54)
[2018-07-20] MEDS: Furosemide 40mg tab ORAL SCH (08:54)
[2018-07-20] MEDS: Aspirin Baby 81mg ORAL SCH (08:54)
[2018-07-20] MEDS: Carvedilol 12.5mg tab ORAL SCH ×2 (08:54→21:00)
[2018-07-20] MEDS: Heparin 5000 units/ml inj SUBQ SCH ×2 (08:55→20:47)
[2018-07-20] MEDS: Spironolactone 25mg tab ORAL SCH (08:57)
[2018-07-20 09:02] LABS: BASOPHILS % (AUTO) 2.2 % (0.0-2.0); EOSINOPHILS % (AUTO) 2.5 % (0.0-3.0); HEMATOCRIT 35.1 % (37.0-47.0); HEMOGLOBIN 10.4 G/DL (12.0-16.0); LYMPHOCYTES % (AUTO) 22.6 % (20.0-45.0); MEAN CORPUSCULAR VOLUME 86 FL (80-99); MONOCYTES % (AUTO) 10.7 % (1.0-10.0); PLATELET COUNT 159 K/UL (150-450); RED CELL DISTRIBUTION WIDTH 15.7 % (11.6-14.8); WHITE BLOOD COUNT 6.2 K/UL (4.8-10.8)
[2018-07-20 09:25] LABS: ALANINE AMINOTRANSFERASE 24 U/L (12-78); ALBUMIN 2.9 G/DL (3.4-5.0); ALBUMIN/GLOBULIN RATIO 0.5 (1.0-2.7); ALKALINE PHOSPHATASE 92 U/L (46-116); ANION GAP 5 mmol/L (5-15); ASPARTATE AMINO TRANSFERASE 30 U/L (15-37); BILIRUBIN,TOTAL 1.3 MG/DL (0.2-1.0); BLOOD UREA NITROGEN 23 mg/dL (7-18); CALCIUM 8.8 MG/DL (8.5-10.1); CARBON DIOXIDE 31 MMOL/L (21-32); CHLORIDE 103 MMOL/L (98-107); POTASSIUM 4.3 MMOL/L (3.5-5.1); SODIUM 139 MMOL/L (136-145)
[2018-07-20 09:27] LABS: BILIRUBIN,DIRECT 0.7 MG/DL (0.0-0.3)
[2018-07-20 12:00] VITALS: BP 92/40
--- NOTE | 2018-07-20 13:30 | Progress Note ---
DATE: 07/19/2018 CARDIOLOGY PROGRESS NOTE SUBJECTIVE: The patient is still weak in bed, but feels much better with no shortness of breath or swelling. She is off dobutamine this morning. She has taken her diuretic as ordered. She continues to have negative fluid balance. OBJECTIVE: VITAL SIGNS: Low blood pressure earlier of 89 systolic, now 100/53 with heart rate 77 and respiratory rate 18. Monitor, atrial fibrillation with demand pacing. LUNGS: Clear. CARDIAC: Regular rhythm and rate. Normal S1, paradoxically split S2. ABDOMEN: Soft. EXTREMITIES: No edema. IMPRESSION: Significant . PLAN: 1. Mobilize. 2. Remove Alarcon catheter. 3. Off inotropes. 4. Titrate oral therapy. 5. Discharge planning. Miguel Mason M.D. DR: BRETT JOB#: [id number] CC:
[2018-07-20 16:00] VITALS: BP 106/67
--- NOTE | 2018-07-20 17:24 | General Progress Note ---
Assessment/Plan Problem List: (1) Elevated troponin (2) Chest pain ICD Codes: R07.9 - Chest pain, unspecified SNOMED: 93064196 (3) ICD (implantable cardiac defibrillator) discharge ICD Codes: Z03.89 - ICD (implantable cardiac defibrillator) discharge SNOMED: 681624054 (4) CHF exacerbation ICD Codes: I50.9 - CHF exacerbation SNOMED: 86812789 (5) ACS (acute coronary syndrome) ICD Codes: I20.0 - Unstable angina SNOMED: 119137509 (6) Gastric cancer ICD Codes: C16.9 - Malignant neoplasm of stomach, unspecified SNOMED: 129064730 (7) CHF exacerbation ICD Codes: I50.9 - Heart failure, unspecified SNOMED: 65744017 (8) Paroxysmal a-fib ICD Codes: I48.0 - Paroxysmal a-fib SNOMED: 359735434 Status: stable, progressing Assessment/Plan off dobutamine prn diuresis monitor labs improved mobilize pt/ot dc planning will need home health Subjective ROS Limited/Unobtainable: No Constitutional: Reports: malaise, weakness HEENT: Reports: no symptoms Cardiovascular: Reports: no symptoms Respiratory: Reports: no symptoms Gastrointestinal/Abdominal: Reports: no symptoms Genitourinary: Reports: no symptoms Neurologic/Psychiatric: Reports: no symptoms Endocrine: Reports: no symptoms Hematologic/Lymphatic: Reports: no symptoms Allergies: Coded Allergies: CODEINE (Verified Allergy, Unknown, 06/17/18) All Systems: reviewed and negative except above Subjective no change. feels better overall. no sob/orthopnea. PT noted- refused to walk with therapy Objective Last 24 Hour Vital Signs Date Time Temp Pulse Resp B/P (MAP) Pulse Ox O2 Delivery O2 Flow Rate FiO2 07/20/18 16:00 98.6 84 19 106/67 (80) 98 98.6 07/20/18 16:00 79 07/20/18 16:00 Room Air 07/20/18 12:00 Room Air 07/20/18 12:00 98.7 81 20 92/40 (57) 99 98.7 07/20/18 12:00 79 07/20/18 08:54 118/68 07/20/18 08:54 97 07/20/18 08:54 97 118/68 07/20/18 08:00 98.6 97 20 118/68 (85) 99 98.6 07/20/18 08:00 Room Air 07/20/18 07:50 92 07/20/18 04:00 98.5 77 18 103/55 (71) 100 98.5 07/20/18 04:00 Room Air 07/20/18 03:50 75 07/20/18 00:00 98.6 76 18 100/52 (68) 100 98.6 07/20/18 00:00 Room Air 07/19/18 23:52 87 07/19/18 21:00 77 100/53 07/19/18 20:00 97.5 77 18 100/53 (69) 99 97.5 07/19/18 20:00 Room Air 07/19/18 19:31 86 07/19/18 17:48 77 Intake and Output 07/19/18 07/20/18 19:00 07:00 Intake Total 450 ml 240 ml Output Total 700 ml 450 ml Balance -250 ml -210 ml Intake Oral 450 ml 240 ml Output Urine Total 700 ml 450 ml # Bowel Movements 3 3 Laboratory Tests 07/20/18 05:00: Urine Color Yellow, Urine Appearance Clear, Urine pH 6, Urine Specific [place] 1.015, Urine Protein 2+H, Urine Glucose (UA) Negative, Urine Ketones Negative, Urine Blood Negative, Urine Nitrite Negative, Urine Bilirubin Negative, Urine Urobilinogen 8H, Urine Leukocyte Esterase 1+H, Urine RBC 0-2, Urine WBC 2-4, Urine Squamous Epithelial Cells Few, Urine Bacteria Occasional 07/20/18 08:30: White Blood Count 6.2, Red Blood Count 4.10L, Hemoglobin 10.4L, Hematocrit 35.1L , Mean Corpuscular Volume 86, Mean Corpuscular Hemoglobin 25.3L, Mean Corpuscular Hemoglobin Concent 29.6L, Red Cell Distribution Width 15.7H, Platelet Count 159, Mean Platelet Volume 9.8, Neutrophils (%) (Auto) 62.0, Lymphocytes (%) (Auto) 22.6, Monocytes (%) (Auto) 10.7H, Eosinophils (%) (Auto) 2.5, Basophils (%) (Auto) 2.2H, Sodium Level 139, Potassium Level 4.3, Chloride Level 103, Carbon Dioxide Level 31, Anion Gap 5, Blood Urea Nitrogen 23H, Creatinine 1.0, Estimat Glomerular Filtration Rate , Glucose Level 147H, Calcium Level 8.8, Magnesium Level 1.8, Total Bilirubin 1.3H, Direct Bilirubin 0.7H, Aspartate Amino Transf (AST/SGOT) 30, Alanine Aminotransferase (ALT/SGPT) 24, Alkaline Phosphatase 92, Pro-B-Type Natriuretic Peptide 4135H, Total Protein 8.5H, Albumin 2.9L, Globulin 5.6, Albumin/Globulin Ratio 0.5L Height (Feet): 5 Height (Inches): 3.00 Weight (Pounds): 111 Objective General Appearance: WD/WN, alert Neck: supple Cardiovascular: regular rhythm Respiratory/Chest: chest wall non-tender, lungs clear, normal breath sounds Abdomen: normal bowel sounds, non tender, soft, no organomegaly Edema: no edema noted Arm (L), no edema noted Arm (R), no edema noted Leg (L), no edema noted Leg (R), no edema noted Pedal (L), no edema noted Pedal (R), no edema noted Generalized Palomo Frankel MD Jul 20, 2018 17:24
[2018-07-20 20:00] VITALS: BP 91/47
[2018-07-20] MEDS ORDERED: Dyna-Hex 2% Top Sol 2oz TOPIC SCH (20:00)
[2018-07-21] VITALS: BP 108/48
--- NOTE | 2018-07-21 00:45 | Progress Note ---
DATE: 07/20/2018 CARDIOLOGY PROGRESS NOTE SUBJECTIVE: The patient refused to ambulate today. She denies chest pain or shortness of breath. She is just tired. OBJECTIVE: VITAL SIGNS: Blood pressure 91/47, pulse 79, and respiratory rate 17. LUNGS: Clear. CARDIAC: Regular. ABDOMEN: Soft. EXTREMITIES: No edema. LABORATORY DATA: White count 6.2 and hemoglobin 10.4. Urinalysis with only 2 to 4 white cells. Potassium 4.3, BUN 23, creatinine 1, magnesium is 1.8, and albumin 2.9. Pro-natriuretic peptide 4000. IMPRESSION: 1. Expected increase in natriuretic peptide off dobutamine. 2. Low baseline ___ blood pressure range expected in the setting of severe cardiomyopathy. 3. Cardiac defibrillator with stable function. 4. Moderate protein calorie malnutrition. 5. Nonischemic cardiomyopathy with cardiac defibrillator. PLAN: 1. Current medication regimen is appropriate with titration of diuretic discussed for outpatient management. 2. Compliance with medications discussed. 3. May need to hold medications, this patient has had symptomatic hypotension. Miguel Mason M.D. DR: MER JOB#: [id number] CC:
[2018-07-21 04:00] VITALS: BP 127/58
[2018-07-21 05:09] VITALS: BP 127/58
[2018-07-21 08:00] VITALS: BP 117/71
[2018-07-21] MEDS: Carvedilol 12.5mg tab ORAL SCH (08:55)
[2018-07-21] MEDS: Heparin 5000 units/ml inj SUBQ SCH (08:56)
[2018-07-21] MEDS ORDERED: COZAAR50 MG ORAL (08:57)
[2018-07-21] MEDS ORDERED: ALDACTONE25 MG ORAL (08:57)
[2018-07-21] MEDS ORDERED: Aspirin Baby 81mg ORAL SCH (09:00)
[2018-07-21] MEDS ORDERED: Losartan 50mg tab ORAL SCH (09:00)
[2018-07-21] MEDS ORDERED: Digoxin 0.125mg tab ORAL SCH (09:00)
[2018-07-21] MEDS ORDERED: Furosemide 40mg tab ORAL SCH (09:00)
[2018-07-21] MEDS ORDERED: Spironolactone 25mg tab ORAL SCH (09:00)
[2018-07-21 12:00] VITALS: BP 100/58
--- NOTE | 2018-07-21 23:45 | Discharge Summary ---
DATE OF ADMISSION: 07/14/2018 DATE OF DISCHARGE: 07/21/2018 ADMISSION DIAGNOSES: 1. Congestive heart failure exacerbation. 2. Acute on chronic systolic heart failure exacerbation. 3. History of gastric carcinoma. 4. Diabetes. 5. Hypertension. 6. Elevated liver function tests. DISCHARGE DIAGNOSES: 1. Congestive heart failure exacerbation. 2. Acute on chronic systolic heart failure exacerbation. 3. History of gastric carcinoma. 4. Diabetes. 5. Hypertension. 6. Elevated liver function tests. HOSPITAL COURSE: The patient was admitted with shortness of breath and worsened lower extremity edema. She has been noncompliant with her cardiac medications at home. She was admitted. She was placed on a dobutamine drip. She was diuresed with intravenous Lasix. She had slow, but gradual improvement in her heart failure. On discharge, she was stable. Medications were called into her pharmacy. Compliance has been stressed. DISCHARGE MEDICATIONS: Please see discharge medication list for discharge medications. DIET: Cardiac diet. ACTIVITY: Ad-berto. FOLLOWUP: The patient will follow up in one to two weeks in the office. Palomo Frankel M.D. DR: MANUEL JOB#: [id number] CC:
--- NOTE | 2018-07-22 02:45 | Progress Note ---
DATE: 07/21/2018 CARDIOLOGY PROGRESS NOTE SUBJECTIVE: The patient feels better. Blood pressure parameters have improved. No shortness of breath. Still overall general weakness. Monitor, atrial fibrillation with ventricular pacing. OBJECTIVE: VITAL SIGNS: Blood pressure 117/71, pulse 85, and respiratory rate 18. NECK: Supple. LUNGS: Clear. CARDIAC: Irregularly irregular. Normal S1, paradoxically split S2. A 1/6 systolic apical murmur. ABDOMEN: Soft. EXTREMITIES: Without edema. IMPRESSION AND PLAN: The patient has severe underlying cardiomyopathy with systolic dysfunction and a cardiac defibrillator. She was treated with intravenous dobutamine and improved dramatically with regard to fluid mobilization. Yesterday, she was slightly hypotensive and that was likely due to over diuresis, but she has stabilized today. She is stable for outpatient followup from a cardiovascular standpoint. She has been advised to maintain her medication regimen as currently prescribed without change in the compliant, especially with her diuretics. The patient will be followed up at the office within 1 week time and continue with her primary care physician as well. Miguel Mason M.D. DR: MER JOB#: [id number] CC:
== END 2018-07-21 16:08 | disposition home health service (06) | DRG 280 ==
LOC: 2W 16:35 → 2E 07-20 18:08
DX: I13.0 Hypertensive heart and chronic kidney disease with heart failure and stage 1 through stage 4 chronic kidney disease, or unspecified chronic kidney disease (principal); I50.23 Acute on chronic systolic (congestive) heart failure; I21.4 Non-ST elevation (NSTEMI) myocardial infarction; R57.0 Cardiogenic shock; C16.9 Malignant neoplasm of stomach, unspecified; E44.0 Moderate protein-calorie malnutrition; E87.2 Acidosis; I47.2 Ventricular tachycardia; I42.8 Other cardiomyopathies; E11.22 Type 2 diabetes mellitus with diabetic chronic kidney disease; N18.9 Chronic kidney disease, unspecified; Z85.028 Personal history of other malignant neoplasm of stomach; E11.40 Type 2 diabetes mellitus with diabetic neuropathy, unspecified; I51.3 Intracardiac thrombosis, not elsewhere classified; I20.8 Other forms of angina pectoris; E78.5 Hyperlipidemia, unspecified; D64.9 Anemia, unspecified; D63.8 Anemia in other chronic diseases classified elsewhere; Z88.6 Allergy status to analgesic agent; K21.9 Gastro-esophageal reflux disease without esophagitis; Z95.810 Presence of automatic (implantable) cardiac defibrillator; I48.0 Paroxysmal atrial fibrillation; Z86.74 Personal history of sudden cardiac arrest; E83.42 Hypomagnesemia; Z90.3 Acquired absence of stomach [part of]; I34.0 Nonrheumatic mitral (valve) insufficiency; I36.1 Nonrheumatic tricuspid (valve) insufficiency
CPT/HCPCS: 36415; 36569; 71045; 76937; 80048; 80053; 80162; 81003; 82248; 83605; 83735; 83880; 84484; 85025; 87081; 87086; 87324; 93306; J8499

== ENCOUNTER 2018-08-25 18:24 | Inpatient (IN) | payer MEDICARE, OTHER ==
[~2018-08-25] VITALS: Ht 160 cm; Wt 54.0 kg
[~2018-08-25 18:24] MED LIST changes: +ALDACTONE25 MG ORAL
[2018-08-25 19:02] VITALS: BP 110/60
--- NOTE | 2018-08-25 19:19 | Emergency Room Report ---
History of Present Illness General Chief Complaint: Generalized Weakness Source: Patient, Medical Record Present Illness HPI 83-year-old female, history of pacemaker, hypertension, possible CHF she does take Lasix, presenting with progressive shortness of breath for the last 2 weeks. Says that her legs are swollen but it has been more swollen in the past. Has had a slight cough. No fever no chills. Worsened shortness of breath on exertion. No chest pain. No nausea vomiting diarrhea. No abdominal pain. No history of DVT or PE in the past, no recent immobilization or surgeries Allergies: Coded Allergies: CODEINE (Verified Allergy, Unknown, 06/17/18) Patient History Past Medical History: see triage record Past Surgical History: none Pertinent Family History: none Reviewed Nursing Documentation: PMH: Agreed; PSxH: Agreed Nursing Documentation-PMH Past Medical History: No History, Except For Hx Cardiac Problems: Yes - AICD, ACS, Hx Hypertension: Yes Hx Pacemaker: Yes Hx COPD: Yes Hx Diabetes: Yes Hx Cancer: Yes - GASTRIC Hx Gastrointestinal Problems: Yes Hx Neurological Problems: No Hx Seizures: Yes Hx Dizziness: Yes Hx Weakness: Yes Review of Systems All Other Systems: negative except mentioned in HPI Physical Exam Vital Signs Date Time Temp Pulse Resp B/P (MAP) Pulse Ox O2 Delivery O2 Flow Rate FiO2 08/25/18 18:40 97.2 46 18 94/56 94 Room Air Sp02 EP Interpretation: reviewed, normal General Appearance: alert, GCS 15, non-toxic, mild distress Head: normocephalic, atraumatic Eyes: bilateral eye normal inspection, bilateral eye PERRL, bilateral eye EOMI ENT: normal ENT inspection, normal pharynx, normal voice, moist mucus membranes Neck: normal inspection, full range of motion, supple Respiratory: respiratory distress, speaking full sentences, other - dec b/s b/ l lung bases Cardiovascular #1: regular rate, rhythm, normal capillary refill, edema Cardiovascular #2: 2+ radial (R), 2+ radial (L) Gastrointestinal: normal inspection, non tender, soft, non-distended, no guarding Musculoskeletal: normal inspection, back normal, normal range of motion, non- tender Neurologic: normal inspection, alert, oriented x3, responsive, motor strength/ tone normal, sensory intact, normal gait, speech normal Psychiatric: normal inspection, judgement/insight normal, memory normal Skin: normal inspection, normal color, no rash, warm/dry, well hydrated, normal turgor Procedures Critical Care Time Critical Care Time 40 minutes of CC time 83-year-old female, severe anemia, shortness of breath Airway patent. Not hypoxic. PLAN: IV access, labs, blood transfusion Anticipate admission to Tele vs. [facility] CC time also includes review of labs, review of EMR, discussion with family and paperwork from SNF, d/w hospitalist CC could include dosing of pressors, additional Abx CC time does not include procedures Medical Decision Making Diagnostic Impression: Primary Impression: Dyspnea Additional Impressions: Symptomatic anemia History of melena ER Course 83-year-old female presents with progressive shortness of breath DDX: ACS vs. CHF vs. pneumonia vs. gastritis/GERD vs. pneumothorax PE on differential however at this time there are other more likely diagnoses. Plan: IV access, obtain labs including troponin, EKG, CXR Anticipate admission ER course: Patient has remained on a monitor, HD stable pt with severe anemia, will get xfused here in ED guiac positive brown stool [facility]: [facility] Mason Please note that this Emergency Department Report was dictated using [employer] business analyst technology software, occasionally this can lead to erroneous entry secondary to interpretation by the dictation equipment. EKG Diagnostic Results EP Interpretation: Yes Rate: n55 Rhythm: afib ST Segments: No acute changes , PVCs ASA given to patient: no Rhythm Strip EP Interpretation: Yes Rate: 60 Rhythm: afib Chest X-ray CXR: Ordered: Yes 1 view Indication: Shortness of breath EP interpretation: Yes Interpretation: cardiomgealy and PPM Impression: No acute disease Electronically signed by Litzy Erazo MD Laboratory Tests Test 08/25/18 19:20 08/25/18 20:05 White Blood Count 7.0 K/UL (4.8-10.8) Red Blood Count 2.18 M/UL (4.20-5.40) L Hemoglobin 5.5 G/DL (12.0-16.0) *L Hematocrit 18.0 % (37.0-47.0) L Mean Corpuscular Volume 83 FL (80-99) Mean Corpuscular Hemoglobin 25.2 PG (27.0-31.0) L Mean Corpuscular Hemoglobin Concent 30.5 G/DL (32.0-36.0) L Red Cell Distribution Width 16.0 % (11.6-14.8) H Platelet Count 177 K/UL (150-450) Mean Platelet Volume 9.2 FL (6.5-10.1) Neutrophils (%) (Auto) % (45.0-75.0) Lymphocytes (%) (Auto) % (20.0-45.0) Monocytes (%) (Auto) % (1.0-10.0) Eosinophils (%) (Auto) % (0.0-3.0) Basophils (%) (Auto) % (0.0-2.0) Differential Total Cells Counted 100 Neutrophils % (Manual) 68 % (45-75) Lymphocytes % (Manual) 21 % (20-45) Monocytes % (Manual) 10 % (1-10) Eosinophils % (Manual) 0 % (0-3) Basophils % (Manual) 1 % (0-2) Band Neutrophils 0 % (0-8) Platelet Estimate Adequate Platelet Morphology Normal Polychromasia 1+ Hypochromasia 3+ Anisocytosis 2+ Microcytosis 1+ Sodium Level 137 MMOL/L (136-145) Potassium Level 3.7 MMOL/L (3.5-5.1) Chloride Level 105 MMOL/L (98-107) Carbon Dioxide Level 21 MMOL/L (21-32) Blood Urea Nitrogen 25 mg/dL (7-18) H Creatinine 1.7 MG/DL (0.55-1.30) H Estimate Glomerular Filtration Rate mL/min (>60) Glucose Level 148 MG/DL (74-106) H Calcium Level 8.5 MG/DL (8.5-10.1) Total Bilirubin 1.6 MG/DL (0.2-1.0) H Direct Bilirubin 0.5 MG/DL (0.0-0.3) H Aspartate Amino Transferase (AST) 14 U/L (15-37) L Alanine Aminotransferase (ALT) 9 U/L (12-78) L Alkaline Phosphatase 78 U/L (46-116) Troponin I 0.030 ng/mL (0.000-0.056) Pro-B-Type Natriuretic Peptide 8182 pg/mL (0-125) H Total Protein 8.7 G/DL (6.4-8.2) H Albumin 2.9 G/DL (3.4-5.0) L Globulin 5.8 g/dL Albumin/Globulin Ratio 0.5 (1.0-2.7) L Prothrombin Time 34.8 SEC (9.30-11.50) H Prothrombin Time INR 3.5 (0.9-1.1) H PTT 46 SEC (23-33) H Last Vital Signs Date Time Temp Pulse Resp B/P (MAP) Pulse Ox O2 Delivery O2 Flow Rate FiO2 08/25/18 19:02 97.2 60 18 110/60 96 Room Air Disposition: ADMITTED INPATIENT Condition: Serious Litzy Erazo M.D. Aug 25, 2018 19:19
[2018-08-25 19:51] LABS: MEAN CORPUSCULAR VOLUME 83 FL (80-99); PLATELET COUNT 177 K/UL (150-450); RED BLOOD COUNT 2.18 M/UL (4.20-5.40)
[2018-08-25] MEDS ORDERED: DOCUSATE SODIU100 MG ORAL (19:58)
[2018-08-25] MEDS ORDERED: PANTOPRAZOLE SO40 MG ORAL (19:58)
[2018-08-25] MEDS ORDERED: LOSARTAN POTAS100 MG ORAL (19:58)
[2018-08-25] MEDS ORDERED: CARAFATE1 G1 ORAL (19:59)
[2018-08-25 20:00] LABS: HEMOGLOBIN 5.5 G/DL (12.0-16.0)
[2018-08-25] MEDS ORDERED: ATENOLOL25 MG ORAL (20:01)
[2018-08-25] MEDS ORDERED: XARELTO15 MG ORAL (20:01)
[2018-08-25 20:26] LABS: ALBUMIN 2.9 G/DL (3.4-5.0); BLOOD UREA NITROGEN 25 mg/dL (7-18); CALCIUM 8.5 MG/DL (8.5-10.1); CHLORIDE 105 MMOL/L (98-107); CREATININE 1.7 MG/DL (0.55-1.30); POTASSIUM 3.7 MMOL/L (3.5-5.1); SODIUM 137 MMOL/L (136-145)
[2018-08-25 20:27] LABS: ALANINE AMINOTRANSFERASE 9 U/L (12-78); ASPARTATE AMINO TRANSFERASE 14 U/L (15-37); BILIRUBIN,TOTAL 1.6 MG/DL (0.2-1.0); CARBON DIOXIDE 21 MMOL/L (21-32)
[2018-08-25 20:29] LABS: ALBUMIN/GLOBULIN RATIO 0.5 (1.0-2.7); ALKALINE PHOSPHATASE 78 U/L (46-116)
[2018-08-25 20:30] LABS: BILIRUBIN,DIRECT 0.5 MG/DL (0.0-0.3)
[2018-08-25 21:06] LABS: INR 3.5 (0.9-1.1)
[2018-08-25 21:10] VITALS: BP 132/66
[2018-08-25] MEDS ORDERED: D5NS 1,000 ML IV SCH (22:15)
[2018-08-25 23:00] VITALS: BP 125/76
[2018-08-26] MEDS: Pantoprazole Inj IVP SCH ×3 (00:46→21:18)
[2018-08-26 00:51] LABS: APPEARANCE,URINE CLOUDY; BILIRUBIN, URINE 1+ (NEGATIVE); GLUCOSE, URINE (UA) NEGATIVE (NEGATIVE); KETONES,URINE 1+ (NEGATIVE); LEUKOCYTE ESTERASE ,URINE 1+ (NEGATIVE); NITRITE,URINE NEGATIVE (NEGATIVE); PH,URINE 5 (4.5-8.0); PROTEIN,URINE 4+ (NEGATIVE); UROBILINOGEN,URINE 4 MG/DL (0.0-1.0)
[2018-08-26 01:05] LABS: COLOR,URINE YELLOW
--- NOTE | 2018-08-26 01:45 | Consultation ---
DATE OF CONSULTATION: 08/25/2018 CARDIOLOGY CONSULTATION CONSULTING PHYSICIAN: Miguel Mason M.D. REQUESTING PHYSICIAN: Palomo Frankel M.D. REASON FOR CONSULTATION: Acute on chronic systolic congestive heart failure in the setting of severe anemia. HISTORY OF PRESENT ILLNESS: This is an female with a known history of nonischemic cardiomyopathy with cardiac defibrillator and chronic systolic congestive heart failure who has had several days of progressive weakness and shortness of breath and worsening edema. She came to the emergency room and was found to have a severe drop in her hemoglobin of 5.5. The patient has a known history of gastric cancer with prior resection over five years ago. Recently, she did have an endoscopy about a year ago that was negative. She has not really paid attention to her stool. PAST MEDICAL HISTORY: Includes hypertension, cardiac defibrillator, ____ congestive heart failure, gastric cancer, diabetes mellitus type 2, chronic kidney disease, paroxysmal atrial fibrillation, nonsustained ventricular tachycardia with history of sudden cardiac , and hyperuricemia ALLERGIES: Reviewed. SOCIAL HISTORY: Negative for smoking, alcohol, or substance abuse. FAMILY HISTORY: Not remarkable. MEDICATIONS: Prior to admission, reviewed and reconciled. REVIEW OF SYSTEMS: No fever. No chills. She is on anti-lipid therapy and oral therapy for her diabetes. No history of seizure or stroke. Her most recent echocardiogram revealed ejection fraction of less than 35% with [id number] valvular regurgitation. Her cardiac defibrillator was interrogated in the last three months and noted to be appropriately functioning. She has had prior cardiac workup was revealing no flow-limiting coronary disease. She has had sudden cardiac due to ventricular arrhythmias. She is not on anticoagulation due to bleeding risk. PHYSICAL EXAMINATION: GENERAL: She is in mild respiratory distress. VITAL SIGNS: Reviewed. HEENT: Pale conjunctival pallor. Oropharynx clear. NECK: Supple. Jugular venous pressure greater than 10. LUNGS: A few rales bilaterally. CARDIAC: Regular rhythm and rate. Normal S1, paradoxically split S2. A 1/6 systolic murmur at apex. Point of maximum pulse is diffuse. ICD pocket site on the left. ABDOMEN: Soft and nontender. No guarding or rebound. Stool occult blood in the emergency room was positive. EXTREMITIES: With 1 to 2+ dependent pitting edema. NEUROLOGIC: Nonfocal. LABORATORY DATA: Reviewed. IMPRESSION: 1. Severe anemia, acute GI bleeding. 2. Acute on chronic systolic congestive heart failure. 3. Cardiogenic shock. 4. Paroxysmal atrial and ventricular arrhythmias. 5. Cardiac defibrillator. 6. 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 PLAN: 1. Cardiac monitoring and packed red blood cell transfusions with concomitant diuresis. 2. Maximize anti-failure regimen. 3. Consider dobutamine holiday at 5 mcg/kg/minute to improve cardiac output and peripheral perfusion. No anticoagulation. 4. Diagnostic endoscopy in view of prior history of gastric cancer. Miguel Mason M.D. DR: KAILASH JOB#: [id number] CC:
[2018-08-26 04:00] VITALS: BP 128/71
[2018-08-26 04:50] LABS: HEMATOCRIT 20.8 % (37.0-47.0); MEAN CORPUSCULAR VOLUME 81 FL (80-99); PLATELET COUNT 165 K/UL (150-450); RED BLOOD COUNT 2.58 M/UL (4.20-5.40); RED CELL DISTRIBUTION WIDTH 15.7 % (11.6-14.8); WHITE BLOOD COUNT 6.1 K/UL (4.8-10.8)
[2018-08-26 05:18] LABS: ALANINE AMINOTRANSFERASE 9 U/L (12-78); ALBUMIN 2.8 G/DL (3.4-5.0); ALBUMIN/GLOBULIN RATIO 0.5 (1.0-2.7); ALKALINE PHOSPHATASE 76 U/L (46-116); ANION GAP 8 mmol/L (5-15); ASPARTATE AMINO TRANSFERASE 12 U/L (15-37); BILIRUBIN,TOTAL 2.2 MG/DL (0.2-1.0); BLOOD UREA NITROGEN 27 mg/dL (7-18); CALCIUM 8.5 MG/DL (8.5-10.1); CARBON DIOXIDE 25 MMOL/L (21-32); CHLORIDE 108 MMOL/L (98-107); CREATININE 1.7 MG/DL (0.55-1.30); SODIUM 141 MMOL/L (136-145)
[2018-08-26 05:22] LABS: HEMOGLOBIN 6.5 G/DL (12.0-16.0)
[2018-08-26 05:33] LABS: BILIRUBIN,DIRECT 0.6 MG/DL (0.0-0.3)
[2018-08-26] MEDS: Sucralfate 1gm tab ORAL SCH (06:18)
[2018-08-26 08:00] VITALS: BP 144/72
[2018-08-26] MEDS ORDERED: Nulytely 4L ORAL ONE (09:00)
[2018-08-26 09:13] LABS: HEMOGLOBIN 7.8 G/DL (12.0-16.0); MEAN CORPUSCULAR VOLUME 82 FL (80-99); PLATELET COUNT 166 K/UL (150-450); RED BLOOD COUNT 3.07 M/UL (4.20-5.40); RED CELL DISTRIBUTION WIDTH 15.1 % (11.6-14.8); WHITE BLOOD COUNT 6.1 K/UL (4.8-10.8)
[2018-08-26] MEDS: D5NS 1,000 ML IV SCH (10:02)
[2018-08-26] MEDS: Spironolactone 25mg tab ORAL SCH (10:02)
[2018-08-26] MEDS: Docusate 100mg cap ORAL SCH (10:03)
[2018-08-26] MEDS: Digoxin 0.125mg tab ORAL SCH (10:03)
[2018-08-26] MEDS: Losartan 50mg tab ORAL SCH (10:04)
[2018-08-26] MEDS: Furosemide 40mg tab ORAL SCH (10:05)
[2018-08-26] MEDS: Atenolol 25mg tab ORAL SCH (10:05)
--- NOTE | 2018-08-26 11:30 | Diagnostic Imaging Report ---
Indication: Shortness of breath Technique: One view of the chest Comparison: 07/18/2018 Findings: There is some atelectasis and possibly pleural fluid at the left lung base. The heart is enlarged. The remainder the lungs and pleural spaces are clear. There is a left chest pacemaker with 4 leads, 2 orphaned. Impression: Left basilar pleural fluid and possibly atelectasis, new since 07/18/2018
--- NOTE | 2018-08-26 11:32 | General Progress Note ---
Assessment/Plan Assessment/Plan GI CONSULT ATSP for evaluation of severe anemia Assessment - Acute on chronic anemia - OB (+) Brown stool in ER department - arrhythmia / CM - on anticoagulation - h/o gastric CA, s/p antrectomy and Bill II - Azotemia / CRI - Mildly elevated BIli - chronic Recommendations - Transfuse to keep Hg>7 - Re check coags - PPI - Endoscopy in am Thank you P Sachin Subjective Allergies: Coded Allergies: CODEINE (Verified Allergy, Unknown, 06/17/18) Objective Last 24 Hour Vital Signs Date Time Temp Pulse Resp B/P (MAP) Pulse Ox O2 Delivery O2 Flow Rate FiO2 08/26/18 10:05 61 144/72 08/26/18 10:04 144/72 08/26/18 10:03 85 08/26/18 07:38 59 08/26/18 04:00 59 08/26/18 04:00 97.8 80 20 128/71 (90) 99 08/26/18 01:18 66 08/26/18 00:50 97.2 65 18 128/65 96 Room Air 08/26/18 00:46 Room Air 08/25/18 23:00 97.6 64 17 125/76 98 Room Air 08/25/18 21:10 97.6 63 18 132/66 96 Room Air 08/25/18 19:02 97.2 60 18 110/60 96 Room Air 08/25/18 19:01 60 18 Room Air 08/25/18 18:40 97.2 46 18 94/56 94 Room Air Intake and Output 08/25/18 08/26/18 19:00 07:00 Intake Total 300 ml Output Total 100 ml Balance 200 ml Intake Oral 300 ml Output Urine Total 100 ml Laboratory Tests 08/25/18 19:20: White Blood Count 7.0, Red Blood Count 2.18L, Hemoglobin 5.5*L, Hematocrit 18.0L , Mean Corpuscular Volume 83, Mean Corpuscular Hemoglobin 25.2L, Mean Corpuscular Hemoglobin Concent 30.5L, Red Cell Distribution Width 16.0H, Platelet Count 177, Mean Platelet Volume 9.2, Neutrophils (%) (Auto) , Lymphocytes (%) (Auto) , Monocytes (%) (Auto) , Eosinophils (%) (Auto) , Basophils (%) (Auto) , Differential Total Cells Counted 100, Neutrophils % ( Manual) 68, Lymphocytes % (Manual) 21, Monocytes % (Manual) 10, Eosinophils % ( Manual) 0, Basophils % (Manual) 1, Band Neutrophils 0, Platelet Estimate Adequate, Platelet Morphology Normal, Polychromasia 1+, Hypochromasia 3+, Anisocytosis 2+, Microcytosis 1+, Sodium Level 137, Potassium Level 3.7, Chloride Level 105, Carbon Dioxide Level 21, Blood Urea Nitrogen 25H, Creatinine 1.7H, Estimat Glomerular Filtration Rate , Glucose Level 148H, Calcium Level 8.5, Total Bilirubin 1.6H, Direct Bilirubin 0.5H, Aspartate Amino Transf (AST/SGOT) 14L, Alanine Aminotransferase (ALT/SGPT) 9L, Alkaline Phosphatase 78, Troponin I 0.030, Pro-B-Type Natriuretic Peptide 8182H, Total Protein 8.7H, Albumin 2.9L, Globulin 5.8, Albumin/Globulin Ratio 0.5L 08/25/18 20:05: Prothrombin Time 34.8H, Prothromb Time International Ratio 3.5H, Activated Partial Thromboplast Time 46H 08/26/18 00:33: Urine Color Yellow, Urine Appearance Cloudy, Urine pH 5, Urine Specific [place] 1.020, Urine Protein 4+H, Urine Glucose (UA) Negative, Urine Ketones 1+H, Urine Blood 2+H, Urine Nitrite Negative, Urine Bilirubin 1+H, Urine Ictotest Negative , Urine Urobilinogen 4H, Urine Leukocyte Esterase 1+H, Urine RBC 2-4H, Urine WBC 5-10H, Urine Squamous Epithelial Cells ModerateH, Urine Calcium Oxalate Crystals Nmoderate, Urine Amorphous Sediment ManyH, Urine Bacteria ModerateH 08/26/18 03:35: White Blood Count 6.1, Red Blood Count 2.58L, Hemoglobin 6.5*L, Hematocrit 20.8L , Mean Corpuscular Volume 81, Mean Corpuscular Hemoglobin 25.3L, Mean Corpuscular Hemoglobin Concent 31.4L, Red Cell Distribution Width 15.7H, Platelet Count 165, Mean Platelet Volume 9.3, Neutrophils (%) (Auto) , Lymphocytes (%) (Auto) , Monocytes (%) (Auto) , Eosinophils (%) (Auto) , Basophils (%) (Auto) , Differential Total Cells Counted 100, Neutrophils % ( Manual) 69, Lymphocytes % (Manual) 16L, Monocytes % (Manual) 13H, Eosinophils % (Manual) 1, Basophils % (Manual) 1, Band Neutrophils 0, Platelet Estimate Adequate, Platelet Morphology Normal, Hypochromasia 4+, Anisocytosis 1+, Sodium Level 141, Potassium Level 4.0, Chloride Level 108H, Carbon Dioxide Level 25, Blood Urea Nitrogen 27H, Creatinine 1.7H, Estimat Glomerular Filtration Rate , Glucose Level 133H, Calcium Level 8.5, Total Bilirubin 2.2H, Direct Bilirubin 0.6H, Aspartate Amino Transf (AST/SGOT) 12L, Alanine Aminotransferase (ALT/SGPT ) 9L, Alkaline Phosphatase 76, Total Protein 8.3H, Albumin 2.8L, Globulin 5.5, Albumin/Globulin Ratio 0.5L, Anion Gap 8 08/26/18 09:00: White Blood Count 6.1, Red Blood Count 3.07L, Hemoglobin 7.8L, Hematocrit 25.0L , Mean Corpuscular Volume 82, Mean Corpuscular Hemoglobin 25.3L, Mean Corpuscular Hemoglobin Concent 31.1L, Red Cell Distribution Width 15.1H, Platelet Count 166, Mean Platelet Volume 8.6, Neutrophils (%) (Auto) , Lymphocytes (%) (Auto) , Monocytes (%) (Auto) , Eosinophils (%) (Auto) , Basophils (%) (Auto) , Differential Total Cells Counted 100, Neutrophils % ( Manual) 67, Lymphocytes % (Manual) 22, Monocytes % (Manual) 10, Eosinophils % ( Manual) 0, Basophils % (Manual) 1, Band Neutrophils 0, Platelet Estimate Adequate, Platelet Morphology Normal, Hypochromasia 3+, Anisocytosis 1+ Height (Feet): 5 Height (Inches): 4.00 Weight (Pounds): 121 Mauro Stephenson MD Aug 26, 2018 11:32
[2018-08-26 12:00] VITALS: BP 121/66
[2018-08-26 12:39] LABS: INR 2.2 (0.9-1.1)
--- NOTE | 2018-08-26 15:45 | History and Physical Report ---
DATE OF ADMISSION: 08/25/2018 CHIEF COMPLAINT: Anemia and GI bleed. HISTORY OF PRESENT ILLNESS: The patient is a pleasant 83-year-old female. She has a history of congestive heart failure. She has a prior history of an ICD, diabetes. She has a history of gastric carcinoma status post resection and chronic kidney disease. . She presented to the hospital with complaints of feeling weak and short of breath. On evaluation in the emergency room, she was noted to have a hemoglobin of 5.5. She does admit to having dark stools for the last week or two. She denies any junior red bright red blood. She denies any hematemesis. She has had midepigastric abdominal pain which is chronic. She is now admitted for further evaluation and care. She is on Xarelto. She denies any medication noncompliance. She believes that she is taking the dose as prescribed. PAST MEDICAL HISTORY: As above. PAST SURGICAL HISTORY: As above. CURRENT MEDICATIONS: Reconciled and reviewed. ALLERGIES: Include codeine. FAMILY HISTORY: Noncontributory. SOCIAL HISTORY: There is no known history of tobacco, ethanol, or drugs. REVIEW OF SYSTEMS: GENERAL: No fever or chills but positive malaise, weakness. HEENT: No headaches or visual changes. CARDIOPULMONARY: Midepigastric abdominal pain/chest pain. Mild shortness of breath. GASTROINTESTINAL: No nausea or vomiting. No hematemesis. Positive dark stools. GENITOURINARY: No urgency or frequency. MUSCULOSKELETAL: No joint pain or swelling. NEUROLOGIC: No evidence of seizures. PHYSICAL EXAMINATION: VITAL SIGNS: Temperature 98 degrees, pulse 80, respirations 20, and blood pressure 128/71. GENERAL: The patient is well developed, no apparent distress. HEART: Regular rate and rhythm. LUNGS: Lungs. ABDOMEN: Soft, nontender, nondistended. EXTREMITIES: Without clubbing or cyanosis. LABORATORY DATA: Showed hemoglobin of 5.5, white count 7, and platelet count of 177. INR was 3.5. Creatinine was 1.7. . UA showed 5 to 10 wbc's. ASSESSMENT: This is a pleasant female admitted with complains of severe anemia secondary to possible GI bleed. 1. Possible GI bleed. 2. Anemia. 3. History of nonischemic cardiomyopathy. 4. History of ICD. 5. Hypertension. 6. Diabetes. PLAN: 1. Transfuse hemoglobin to greater than 7.5. 2. Check stool occult blood. 3. We will hold aspirin as Xarelto. 4. Gastrointestinal consultation has been obtained. 5. Cardiology consultation for clearance of possible endoscopy. Palomo Frankel M.D. DR: Aung JOB#: [id number] CC:
[2018-08-26 16:00] VITALS: BP 129/63
[2018-08-26 20:00] VITALS: BP 133/73
[2018-08-27] VITALS (9 sets, daily range): BP systolic 119–141; BP diastolic 54–77
--- NOTE | 2018-08-27 03:00 | Consultation ---
DATE OF CONSULTATION: 08/26/2018 GASTROENTEROLOGY CONSULTATION CONSULTING PHYSICIAN: Mauro Stephenson M.D. CHIEF COMPLAINT: I was asked to see this patient by Dr. Palomo Frankel and Dr. Miguel Mason for evaluation of severe anemia. HISTORY OF PRESENT ILLNESS: The patient is a pleasant 83-year-old woman with significant cardiac disease who comes into the hospital due to progressive weakness and shortness of breath. In the emergency room, she was evaluated and was found to be critically anemic, and she was admitted to the hospital for further evaluation and care. She had recent blood transfusions overnight and she feels much better this morning. She denies any abdominal pain. No nausea or vomiting. No melena. Overall, she is not a very good historian with detail of her care. She had an endoscopy and colonoscopy in January 2017 at [facility]. PAST MEDICAL HISTORY: History of hypertension, cardiac defibrillator, congestive heart failure, history of gastric cancer, status post resection, type 2 diabetes, chronic kidney disease, paroxysmal atrial fibrillation, ventricular tachycardia, history of sudden , and hyperuricemia, h/o colon polyp, h/o gastric AVM, anemia ALLERGIES: Codeine. FAMILY HISTORY: Noncontributory. SOCIAL HISTORY: The patient does not smoke or drink alcohol. REVIEW OF SYSTEMS: Otherwise negative. PHYSICAL EXAMINATION: GENERAL: This is a pleasant woman, seen in her room. HEENT: Normocephalic and atraumatic. Sclerae anicteric. Oropharynx clear. NECK: Supple. CHEST: Clear to auscultation. CARDIOVASCULAR: Revealed regular rate. ABDOMEN: Soft with good bowel sounds. EXTREMITIES: Revealed no edema. LABORATORY DATA: Noted. ASSESSMENT: This patient presents today with acute severe anemia of unclear etiology. Her anemia dates back to at least six years and therefore there is underlying chronic anemia. However, the patient also has acute decompensation and therefore an endoscopy will be scheduled tomorrow to evaluate the upper GI tract. The patient's anticoagulation has been held for this time. Indications, risks, alternatives, and possible complications were explained and informed consent was obtained. RECOMMENDATIONS: 1. Continue clear liquid diet. 2. NPO after midnight. 3. Endoscopy tomorrow. 4. Transfuse as needed. 5. Hold anticoagulation. Thank you for asking me to participate in the care of this patient. Mauro Stephenson M.D. DR: VICTORIANO JOB#: [id number] CC: SURAJ
[2018-08-27 04:51] LABS: HEMATOCRIT 24.4 % (37.0-47.0); HEMOGLOBIN 7.8 G/DL (12.0-16.0); MEAN CORPUSCULAR VOLUME 81 FL (80-99); PLATELET COUNT 172 K/UL (150-450); RED BLOOD COUNT 3.02 M/UL (4.20-5.40); WHITE BLOOD COUNT 6.7 K/UL (4.8-10.8)
[2018-08-27 05:03] LABS: ALANINE AMINOTRANSFERASE 9 U/L (12-78); ALBUMIN 2.6 G/DL (3.4-5.0); ALBUMIN/GLOBULIN RATIO 0.5 (1.0-2.7); ALKALINE PHOSPHATASE 73 U/L (46-116); ANION GAP 5 mmol/L (5-15); ASPARTATE AMINO TRANSFERASE 13 U/L (15-37); BLOOD UREA NITROGEN 23 mg/dL (7-18); CALCIUM 8.1 MG/DL (8.5-10.1); CARBON DIOXIDE 26 MMOL/L (21-32); CHLORIDE 108 MMOL/L (98-107); CREATININE 1.4 MG/DL (0.55-1.30); POTASSIUM 3.9 MMOL/L (3.5-5.1); SODIUM 139 MMOL/L (136-145)
[2018-08-27 05:21] LABS: BILIRUBIN,DIRECT 0.8 MG/DL (0.0-0.3)
[2018-08-27] MEDS: D5NS 1,000 ML IV SCH ×2 (05:26→16:26)
[2018-08-27] MEDS: Sucralfate 1gm tab ORAL SCH (05:27)
--- NOTE | 2018-08-27 06:08 | General Progress Note ---
Assessment/Plan Problem List: (1) Anemia ICD Codes: D64.9 - Anemia, unspecified SNOMED: 951451026 (2) GI bleed ICD Codes: K92.2 - Gastrointestinal hemorrhage, unspecified SNOMED: 35110875 (3) A-fib ICD Codes: I48.91 - Unspecified atrial fibrillation SNOMED: 92548848 (4) Gastric cancer ICD Codes: C16.9 - Malignant neoplasm of stomach, unspecified SNOMED: 474206646 (5) Chest pain ICD Codes: R07.9 - Chest pain, unspecified SNOMED: 37343365 Status: stable Assessment/Plan PPI rx holding asa and xarelto monitor h/h endoscopy today d/w pt- agrees with poc Subjective ROS Limited/Unobtainable: No Constitutional: Reports: malaise, weakness HEENT: Reports: no symptoms Cardiovascular: Reports: no symptoms Respiratory: Reports: no symptoms Gastrointestinal/Abdominal: Reports: no symptoms Genitourinary: Reports: no symptoms Neurologic/Psychiatric: Reports: no symptoms Endocrine: Reports: no symptoms Hematologic/Lymphatic: Reports: anemia Allergies: Coded Allergies: CODEINE (Verified Allergy, Unknown, 06/17/18) All Systems: reviewed and negative except above Subjective no bleeding noted. anxious about procedure. no fever or chills. no chest pain h/h stable. Objective Last 24 Hour Vital Signs Date Time Temp Pulse Resp B/P (MAP) Pulse Ox O2 Delivery O2 Flow Rate FiO2 08/27/18 04:00 Room Air 08/27/18 04:00 97.9 60 20 136/54 (81) 96 08/27/18 04:00 52 08/27/18 00:18 54 08/27/18 00:00 96.3 67 20 141/70 (93) 100 08/27/18 00:00 Room Air 08/26/18 20:00 Room Air 08/26/18 20:00 98.2 55 20 133/73 (93) 100 08/26/18 19:31 47 08/26/18 16:00 96.6 49 16 129/63 (85) 100 08/26/18 16:00 52 08/26/18 16:00 Room Air 08/26/18 12:00 97.5 71 16 121/66 (84) 98 08/26/18 12:00 59 08/26/18 12:00 Room Air 08/26/18 10:05 61 144/72 08/26/18 10:04 144/72 08/26/18 10:03 85 08/26/18 09:00 Room Air 08/26/18 08:00 97.3 61 16 144/72 (96) 99 08/26/18 07:38 59 Intake and Output 08/26/18 08/27/18 19:00 07:00 Intake Total 998 ml 350 ml Balance 998 ml 350 ml Intake Oral 548 ml IV Total 450 ml 350 ml # Bowel Movements 1 Laboratory Tests 08/26/18 09:00: White Blood Count 6.1, Red Blood Count 3.07L, Hemoglobin 7.8L, Hematocrit 25.0L , Mean Corpuscular Volume 82, Mean Corpuscular Hemoglobin 25.3L, Mean Corpuscular Hemoglobin Concent 31.1L, Red Cell Distribution Width 15.1H, Platelet Count 166, Mean Platelet Volume 8.6, Neutrophils (%) (Auto) , Lymphocytes (%) (Auto) , Monocytes (%) (Auto) , Eosinophils (%) (Auto) , Basophils (%) (Auto) , Differential Total Cells Counted 100, Neutrophils % ( Manual) 67, Lymphocytes % (Manual) 22, Monocytes % (Manual) 10, Eosinophils % ( Manual) 0, Basophils % (Manual) 1, Band Neutrophils 0, Platelet Estimate Adequate, Platelet Morphology Normal, Hypochromasia 3+, Anisocytosis 1+ 08/26/18 11:40: Prothrombin Time 22.1H, Prothromb Time International Ratio 2.2H, Activated Partial Thromboplast Time 41H 08/27/18 04:05: White Blood Count 6.7, Red Blood Count 3.02L, Hemoglobin 7.8L, Hematocrit 24.4L , Mean Corpuscular Volume 81, Mean Corpuscular Hemoglobin 26.0L, Mean Corpuscular Hemoglobin Concent 32.2, Red Cell Distribution Width 15.0H, Platelet Count 172, Mean Platelet Volume 9.6, Neutrophils (%) (Auto) , Lymphocytes (%) (Auto) , Monocytes (%) (Auto) , Eosinophils (%) (Auto) , Basophils (%) (Auto) , Neutrophils % (Manual) [Pending], Lymphocytes % (Manual) [Pending], Platelet Estimate [Pending], Platelet Morphology [Pending], Sodium Level 139, Potassium Level 3.9, Chloride Level 108H, Carbon Dioxide Level 26, Anion Gap 5, Blood Urea Nitrogen 23H, Creatinine 1.4H, Estimat Glomerular Filtration Rate , Glucose Level 126H, Calcium Level 8.1L, Total Bilirubin 3.0H, Direct Bilirubin 0.8H, Aspartate Amino Transf (AST/SGOT) 13L, Alanine Aminotransferase (ALT/SGPT) 9L, Alkaline Phosphatase 73, Total Protein 7.8, Albumin 2.6L, Globulin 5.2, Albumin/Globulin Ratio 0.5L Height (Feet): 5 Height (Inches): 4.00 Weight (Pounds): 121 General Appearance: WD/WN, alert Neck: supple Cardiovascular: regular rhythm Respiratory/Chest: chest wall non-tender, lungs clear, normal breath sounds Abdomen: normal bowel sounds, non tender, soft, no organomegaly Edema: no edema noted Arm (L), no edema noted Arm (R), no edema noted Leg (L), no edema noted Leg (R), no edema noted Pedal (L), no edema noted Pedal (R), no edema noted Generalized Neurologic: coffee break attendant II-XII grossly normal, alert, oriented x 3 Palomo Frankel MD Aug 27, 2018 06:08
[2018-08-27] MEDS ORDERED: LORazepam 1mg tab ORAL PRN ×2 (06:15→16:15)
[2018-08-27] MEDS ORDERED: fentaNYL 100 mcg/2 mL IV ONE (06:41)
[2018-08-27] MEDS ORDERED: Phenylephrine 10mg/ml Vial ONE (06:41)
[2018-08-27] MEDS ORDERED: ePHEDrine 50mg/ml Inj ONE (06:41)
[2018-08-27] MEDS ORDERED: Propofol 200mg/20ml IV ONE (07:00)
[2018-08-27] MEDS ORDERED: Lidocaine 1% MPF 10mg/ml 5ml ONE (07:00)
[2018-08-27] MEDS ORDERED: NS 500ML IVPB ONE (07:09)
--- NOTE | 2018-08-27 07:13 | Anethesia Preoperative Eval ---
Anesthesia Pre-op PMH/ROS General Date of Evaluation: Aug 27, 2018 Time of Evaluation: 06:50 Anesthesiologist: Lanette Estrada CRNA ASA Score: ASA 3 Mallampati Score Class I : Soft palate, uvula, fauces, pillars visible Class II: Soft palate, uvula, fauces visible Class III: Soft palate, base of uvula visible Class IV: Only hard plate visible Mallampati Classification: Class II Surgeon: Sachin Diagnosis: SOB, r/o GI bleed Surgical Procedure: EGD and colonoscopy Anesthesia History: none Family History: no anesthesia problems Allergies: Coded Allergies: CODEINE (Verified Allergy, Unknown, 06/17/18) Medications: see eMAR Patient NPO?: Yes NPO Date: Aug 27, 2018 NPO Time: 00:00 Past Medical History Cardiovascular: Reports: HTN, arrhythmia, other - CHF (EF <35%), a-fib with AICD, Pulmonary: Reports: other - ER for SOB 08/26/18; Denies: asthma, COPD, KAMLESH Gastrointestinal/Genitourinary: Reports: CRI, other - Hx of Gastric CA; Denies: GERD, ESRD Neurologic/Psychiatric: Denies: dementia, CVA, depression/anxiety, TIA, other Endocrine: Reports: DM; Denies: hypothyroidism, steroids, other Hematology/Immune: Reports: anemia; Denies: DVT, bleeding disorder, other Musculoskeletal/Integumentary: Reports: OA, other - Neck pain PMH Narrative: as above PSxH Narrative: Gastric resection; AICD Anesthesia Pre-op Phys. Exam Physician Exam Last Vital Signs Date Time Temp Pulse Resp B/P (MAP) Pulse Ox O2 Delivery O2 Flow Rate FiO2 08/27/18 04:00 Room Air 08/27/18 04:00 97.9 60 20 136/54 (81) 96 Constitutional: other Neurologic: CN 2-12 intact Cardiovascular: other - A-fib Respiratory: CTA, other - Tachypneic, SOB Gastrointestinal: S/NT/ND Airway Exam Mallampati Score: Class II MO: limited Neck: pt c/o occassional "popping noise" TMD: > 3B ROM: full Teeth: missing, broken Dentures: no upper, no lower Anesthesia Pre-op A/P Labs Hematology Test 08/26/18 09:00 08/27/18 04:05 White Blood Count 6.1 K/UL (4.8-10.8) 6.7 K/UL (4.8-10.8) Red Blood Count 3.07 M/UL (4.20-5.40) L 3.02 M/UL (4.20-5.40) L Hemoglobin 7.8 G/DL (12.0-16.0) L 7.8 G/DL (12.0-16.0) L Hematocrit 25.0 % (37.0-47.0) L 24.4 % (37.0-47.0) L Mean Corpuscular Volume 82 FL (80-99) 81 FL (80-99) Mean Corpuscular Hemoglobin 25.3 PG (27.0-31.0) L 26.0 PG (27.0-31.0) L Mean Corpuscular Hemoglobin Concent 31.1 G/DL (32.0-36.0) L 32.2 G/DL (32.0-36.0) Red Cell Distribution Width 15.1 % (11.6-14.8) H 15.0 % (11.6-14.8) H Platelet Count 166 K/UL (150-450) 172 K/UL (150-450) Mean Platelet Volume 8.6 FL (6.5-10.1) 9.6 FL (6.5-10.1) Neutrophils (%) (Auto) % (45.0-75.0) % (45.0-75.0) Lymphocytes (%) (Auto) % (20.0-45.0) % (20.0-45.0) Monocytes (%) (Auto) % (1.0-10.0) % (1.0-10.0) Eosinophils (%) (Auto) % (0.0-3.0) % (0.0-3.0) Basophils (%) (Auto) % (0.0-2.0) % (0.0-2.0) Differential Total Cells Counted 100 Neutrophils % (Manual) 67 % (45-75) Pending Lymphocytes % (Manual) 22 % (20-45) Pending Monocytes % (Manual) 10 % (1-10) Eosinophils % (Manual) 0 % (0-3) Basophils % (Manual) 1 % (0-2) Band Neutrophils 0 % (0-8) Platelet Estimate Adequate Pending Platelet Morphology Normal Pending Hypochromasia 3+ Anisocytosis 1+ Coagulation Test 08/26/18 11:40 Prothrombin Time 22.1 SEC (9.30-11.50) H Prothromb Time International Ratio 2.2 (0.9-1.1) H Activated Partial Thromboplast Time 41 SEC (23-33) H Chemistry Test 08/27/18 04:05 Sodium Level 139 MMOL/L (136-145) Potassium Level 3.9 MMOL/L (3.5-5.1) Chloride Level 108 MMOL/L (98-107) H Carbon Dioxide Level 26 MMOL/L (21-32) Anion Gap 5 mmol/L (5-15) Blood Urea Nitrogen 23 mg/dL (7-18) H Creatinine 1.4 MG/DL (0.55-1.30) H Estimat Glomerular Filtration Rate mL/min (>60) Glucose Level 126 MG/DL (74-106) H Calcium Level 8.1 MG/DL (8.5-10.1) L Total Bilirubin 3.0 MG/DL (0.2-1.0) H Direct Bilirubin 0.8 MG/DL (0.0-0.3) H Aspartate Amino Transf (AST/SGOT) 13 U/L (15-37) L Alanine Aminotransferase (ALT/SGPT) 9 U/L (12-78) L Alkaline Phosphatase 73 U/L (46-116) Total Protein 7.8 G/DL (6.4-8.2) Albumin 2.6 G/DL (3.4-5.0) L Globulin 5.2 g/dL Albumin/Globulin Ratio 0.5 (1.0-2.7) L Accucheck FBS 126 @ 0405 Studies Pre-op Studies: EKG - AA-fib with occasional PVS adn aberrant conduction complexes, CXR - LEFT pleural fluid, (B) atelectasis, enlarged heart, echo - EF < 35% Risk Assessment & Plan Assessment: ASA 3, ok proceed Plan: MAC Status Change Before Surgery: No Pre-Antibiotics Given Within 1 Hr of Incision: Lanette Hernandez CRNA Aug 27, 2018 07:13
--- NOTE | 2018-08-27 07:16 | General Progress Note ---
Assessment/Plan Assessment/Plan Assessment - Acute on chronic anemia - OB (+) Brown stool - arrhythmia / CM - on anticoagulation - h/o gastric CA, s/p antrectomy and Bill II - Azotemia / CRI - Mildly elevated BIli - chronic Recommendations - Transfuse PRN to keep Hg>7 - Continue to hold Xarelto - PPI - Endoscopy today - Follow labs Subjective Allergies: Coded Allergies: CODEINE (Verified Allergy, Unknown, 06/17/18) Subjective Feels OK no abdominal pain NPO for EGD last Xarelto dose 48 hours ago Objective Last 24 Hour Vital Signs Date Time Temp Pulse Resp B/P (MAP) Pulse Ox O2 Delivery O2 Flow Rate FiO2 08/27/18 04:00 Room Air 08/27/18 04:00 97.9 60 20 136/54 (81) 96 08/27/18 04:00 52 08/27/18 00:18 54 08/27/18 00:00 96.3 67 20 141/70 (93) 100 08/27/18 00:00 Room Air 08/26/18 20:00 Room Air 08/26/18 20:00 98.2 55 20 133/73 (93) 100 08/26/18 19:31 47 08/26/18 16:00 96.6 49 16 129/63 (85) 100 08/26/18 16:00 52 08/26/18 16:00 Room Air 08/26/18 12:00 97.5 71 16 121/66 (84) 98 08/26/18 12:00 59 08/26/18 12:00 Room Air 08/26/18 10:05 61 144/72 08/26/18 10:04 144/72 08/26/18 10:03 85 08/26/18 09:00 Room Air 08/26/18 08:00 97.3 61 16 144/72 (96) 99 08/26/18 07:38 59 Intake and Output 08/26/18 08/27/18 19:00 07:00 Intake Total 998 ml 528.22 ml Balance 998 ml 528.22 ml Intake Oral 548 ml IV Total 450 ml 528.22 ml # Bowel Movements 1 Laboratory Tests 08/26/18 09:00: White Blood Count 6.1, Red Blood Count 3.07L, Hemoglobin 7.8L, Hematocrit 25.0L , Mean Corpuscular Volume 82, Mean Corpuscular Hemoglobin 25.3L, Mean Corpuscular Hemoglobin Concent 31.1L, Red Cell Distribution Width 15.1H, Platelet Count 166, Mean Platelet Volume 8.6, Neutrophils (%) (Auto) , Lymphocytes (%) (Auto) , Monocytes (%) (Auto) , Eosinophils (%) (Auto) , Basophils (%) (Auto) , Differential Total Cells Counted 100, Neutrophils % ( Manual) 67, Lymphocytes % (Manual) 22, Monocytes % (Manual) 10, Eosinophils % ( Manual) 0, Basophils % (Manual) 1, Band Neutrophils 0, Platelet Estimate Adequate, Platelet Morphology Normal, Hypochromasia 3+, Anisocytosis 1+ 08/26/18 11:40: Prothrombin Time 22.1H, Prothromb Time International Ratio 2.2H, Activated Partial Thromboplast Time 41H 08/27/18 04:05: White Blood Count 6.7, Red Blood Count 3.02L, Hemoglobin 7.8L, Hematocrit 24.4L , Mean Corpuscular Volume 81, Mean Corpuscular Hemoglobin 26.0L, Mean Corpuscular Hemoglobin Concent 32.2, Red Cell Distribution Width 15.0H, Platelet Count 172, Mean Platelet Volume 9.6, Neutrophils (%) (Auto) , Lymphocytes (%) (Auto) , Monocytes (%) (Auto) , Eosinophils (%) (Auto) , Basophils (%) (Auto) , Neutrophils % (Manual) [Pending], Lymphocytes % (Manual) [Pending], Platelet Estimate [Pending], Platelet Morphology [Pending], Sodium Level 139, Potassium Level 3.9, Chloride Level 108H, Carbon Dioxide Level 26, Anion Gap 5, Blood Urea Nitrogen 23H, Creatinine 1.4H, Estimat Glomerular Filtration Rate , Glucose Level 126H, Calcium Level 8.1L, Total Bilirubin 3.0H, Direct Bilirubin 0.8H, Aspartate Amino Transf (AST/SGOT) 13L, Alanine Aminotransferase (ALT/SGPT) 9L, Alkaline Phosphatase 73, Total Protein 7.8, Albumin 2.6L, Globulin 5.2, Albumin/Globulin Ratio 0.5L Height (Feet): 5 Height (Inches): 3.00 Weight (Pounds): 121 Objective WDWN AA woman NCAT supple CTA RRR Soft ND NT no edema nonfocal Mauro Stephenson MD Aug 27, 2018 07:16
--- NOTE | 2018-08-27 07:17 | Pre-Procedure Note/Attestation ---
Pre-Procedure Note/Attestation Complete Prior to Procedure Planned Procedure: not applicable Procedure Narrative: egd Indications for Procedure Pre-Operative Diagnosis: gib Attestation I attest that I discussed the nature of the procedure; its benefits; risks and complications; and alternatives (and the risks and benefits of such alternatives ), prior to the procedure, with the patient (or the patient's legal advertising sales representative). I attest that, if there was a reasonable possibility of needing a blood transfusion, the patient (or the patient's legal advertising sales representative) was given the [facility] standardized written summary, pursuant to the Vadim Toro Blood Safety Act ([place] Health and Safety Code # 1645, as amended). I attest that I re-evaluated the patient just prior to the surgery and that there has been no change in the patient's H&P, except as documented below: Mauro Stephenson MD Aug 27, 2018 07:17
--- NOTE | 2018-08-27 07:56 | Immediate Post-Op Evaluation ---
Immediate Post-Op Evalulation Immediate Post-Op Evalulation Procedure: EGD with biopsies Date of Evaluation: Aug 27, 2018 Time of Evaluation: 07:46 IV Fluids: 0.9% NS 50 ml Blood Pressure Systolic: 133 Blood Pressure Diastolic: 71 Pulse Rate: 52 Respiratory Rate: 18 O2 Sat by Pulse Oximetry: 100 Temperature (Fahrenheit): 97.4 Pain Score (1-10): 0 Nausea: No Vomiting: No Complications none Patient Status: awake, reacts, patent Hydration Status: adequate Given Within 1 Hr of Incision: Lanette Hernandez CRNA Aug 27, 2018 07:56
--- NOTE | 2018-08-27 08:05 | Endoscopy Procedure Note ---
Endoscopy Procedure Note General Indication for Procedure: GI Bleed Procedures Performed: EGD Operative Findings/Diagnosis: Bill II, prior clip, biopsy of polyp Specimen: yes Pt Tolerated Procedure Well: Yes Estimated Blood Loss: none Anesthesia Anesthesiologist: see report Anesthesia: MAC, moderate sedation Medications Medication Given: see anesthesia record Inserted Devices Implant(s) used?: No GI Core Measures 50 yrs or older w/o bx or poly: Not Applicable 10yrs. F/U not recommended: Not Applicable If not recommended, why?: Mauro Stephenson MD Aug 27, 2018 08:05
--- NOTE | 2018-08-27 08:07 | Brief Operative Note ---
Immediate Post Operative Note Operative Note Pre-op Diagnosis: gib Procedure: EGD/Bx Post-op Diagnosis: s/p Bill II, old clip seen at GJ junction, 8-9 mm polyp at base of clip - bx Surgeon: kaylie Anesthesiologist: see report Anesthesia: MAC, moderate sedation Specimen: yes Complications: none Condition: stable Fluids: reported Estimated Blood Loss: none Drains: none Implant(s) used?: No Mauro Stephenson MD Aug 27, 2018 08:07
[2018-08-27] MEDS: Atenolol 25mg tab ORAL SCH (09:00)
[2018-08-27] MEDS: Digoxin 0.125mg tab ORAL SCH (09:00)
[2018-08-27 09:27] LABS: INR 1.7 (0.9-1.1)
[2018-08-27] MEDS: Pantoprazole Inj IVP SCH ×2 (09:32→20:42)
[2018-08-27] MEDS: Docusate 100mg cap ORAL SCH (09:32)
[2018-08-27] MEDS: Furosemide 40mg tab ORAL SCH (09:41)
[2018-08-27] MEDS: Spironolactone 25mg tab ORAL SCH (09:41)
[2018-08-27] MEDS: Losartan 50mg tab ORAL SCH (10:37)
--- NOTE | 2018-08-27 11:47 | 48 Hour Post Anesthesia Eval ---
Post Anesthesia Evaluation Procedure: EGD with biopsies Date of Evaluation: Aug 27, 2018 Time of Evaluation: 11:46 Blood Pressure Systolic: 134 0: 75 Pulse Rate: 53 Respiratory Rate: 20 Temperature (Fahrenheit): 97.4 O2 Sat by Pulse Oximetry: 99 Airway: patent Nausea: No Vomiting: No Pain Intensity: 0 Hydration Status: adequate Cardiopulmonary Status: stable Mental Status/LOC: patient returned to baseline Follow-up Care/Observations: per hospitalist Post-Anesthesia Complications: none Follow-up care needed: N/A Lanette Estrada CRNA Aug 27, 2018 11:47
[2018-08-27] MEDS ORDERED: D5NS 1000ml IV ONE (20:54)
--- NOTE | 2018-08-27 21:00 | Procedure Note ---
DATE OF PROCEDURE: 08/27/2018 PROCEDURE: Upper gastrointestinal endoscopy with biopsy. SURGEON: Mauro Stephenson M.D. ANESTHESIA: Please see the separate anesthesiologist notes for details. PRE-ENDOSCOPIC DIAGNOSIS: Anemia with acute on chronic components. POST-ENDOSCOPIC DIAGNOSES: 1. Status post antrectomy and Billroth anastomosis as previously known. 2. Endoclip placed about a year and half ago, still in situ at the gastrojejunal junction. 3. A polypoid growth at the base of the Endoclip, measuring approximately 1 cm, which was biopsied. 4. No evidence of ulcerations or arteriovenous malformations or any other source of blood loss in the upper gastrointestinal tract. DESCRIPTION OF PROCEDURE: The procedure, its risks, indications, alternatives, and possible complications were explained and an informed consent was obtained. The patient was then sedated in the left lateral decubitus position and a diagnostic endoscope was introduced into oropharynx and advanced both to the pharynx and the inferior limb of the jejunum. The endoscope was then gradually withdrawn and the mucosa examined carefully. Examination of the upper gastric mucosa revealed the antrectomy and Billroth II anastomosis that was seen previously on the prior endoscopy. The Endoclip placed a year and a half ago was still in situ at the gastrojejunal junction. At the base of this Endoclip, there was a polypoid growth measuring approximately 1 cm. This was gently biopsied and biopsies were sent to pathology for review. There were however no arteriovenous malformations, ulcers, or any other sources of blood loss in the upper gastrointestinal tract. The endoscope was removed and the patient was sent to recovery in good condition. COMPLICATIONS: None. RECOMMENDATIONS: 1. Resume oral diet. 2. Okay to resume anticoagulation. 3. Consider a lower level of anticoagulation if feasible to minimize worsening of anemia in the future. Thank you for asking me to participate in the care of this patient. Mauro Stephenson M.D. DR: JARON JOB#: [id number] CC:
[2018-08-28] VITALS: BP 136/90
[2018-08-28 04:00] VITALS: BP 130/78
[2018-08-28] MEDS: Sucralfate 1gm tab ORAL SCH (06:00)
[2018-08-28 07:50] VITALS: BP 137/70
[2018-08-28 07:54] LABS: HEMATOCRIT 24.8 % (37.0-47.0); HEMOGLOBIN 7.8 G/DL (12.0-16.0); MEAN CORPUSCULAR VOLUME 80 FL (80-99); PLATELET COUNT 184 K/UL (150-450); RED BLOOD COUNT 3.09 M/UL (4.20-5.40); RED CELL DISTRIBUTION WIDTH 15.4 % (11.6-14.8); WHITE BLOOD COUNT 7.4 K/UL (4.8-10.8)
--- NOTE | 2018-08-28 08:00 | General Progress Note ---
Assessment/Plan Problem List: (1) Anemia ICD Codes: D64.9 - Anemia, unspecified SNOMED: 274259376 (2) GI bleed ICD Codes: K92.2 - Gastrointestinal hemorrhage, unspecified SNOMED: 59223109 (3) A-fib ICD Codes: I48.91 - Unspecified atrial fibrillation SNOMED: 94684474 (4) Gastric cancer ICD Codes: C16.9 - Malignant neoplasm of stomach, unspecified SNOMED: 977905420 (5) Chest pain ICD Codes: R07.9 - Chest pain, unspecified SNOMED: 54403135 Status: stable, progressing Assessment/Plan PPI rx resume xarelto dc aspirin monitor h/h monitor for bleeding Subjective ROS Limited/Unobtainable: No Constitutional: Reports: malaise, weakness HEENT: Reports: no symptoms Cardiovascular: Reports: no symptoms Respiratory: Reports: no symptoms Gastrointestinal/Abdominal: Reports: no symptoms Genitourinary: Reports: no symptoms Neurologic/Psychiatric: Reports: no symptoms Endocrine: Reports: no symptoms Hematologic/Lymphatic: Reports: no symptoms Allergies: Coded Allergies: CODEINE (Verified Allergy, Unknown, 06/17/18) All Systems: reviewed and negative except above Subjective no bleeding noted. anxious about procedure. no fever or chills. no chest pain h/h stable. endoscopy results noted. Objective Last 24 Hour Vital Signs Date Time Temp Pulse Resp B/P (MAP) Pulse Ox O2 Delivery O2 Flow Rate FiO2 08/28/18 04:00 98.4 80 20 130/78 (95) 98 08/28/18 04:00 65 08/28/18 00:00 98.0 78 20 136/90 (105) 100 08/28/18 00:00 69 08/27/18 21:00 Room Air 08/27/18 20:00 45 08/27/18 20:00 98.1 80 20 123/77 (92) 100 08/27/18 16:00 97.7 58 18 125/62 (83) 97 08/27/18 16:00 53 08/27/18 12:00 97.1 52 20 128/62 (84) 96 08/27/18 12:00 52 08/27/18 11:47 53 20 99 08/27/18 10:37 134/75 08/27/18 09:00 53 08/27/18 09:00 55 135/73 11/16/18 08:10 61 08/27/18 08:01 97.4 71 20 127/75 99 Room Air 08/27/18 08:00 Room Air Intake and Output 08/27/18 08/28/18 19:00 07:00 Intake Total 340 ml 260 ml Balance 340 ml 260 ml Intake Oral 240 ml 260 ml IV Total 100 ml # Voids 2 3 Laboratory Tests 08/27/18 08:45: Prothrombin Time 17.2H, Prothromb Time International Ratio 1.7H, Activated Partial Thromboplast Time 35H 08/28/18 07:15: Stool Occult Blood [Pending] 08/28/18 07:17: White Blood Count [Pending], Red Blood Count [Pending], Hemoglobin [Pending], Hematocrit [Pending], Mean Corpuscular Volume [Pending], Mean Corpuscular Hemoglobin [Pending], Mean Corpuscular Hemoglobin Concent [Pending], Red Cell Distribution Width [Pending], Platelet Count [Pending], Mean Platelet Volume [ Pending], Neutrophils (%) (Auto) [Pending], Lymphocytes (%) (Auto) [Pending], Monocytes (%) (Auto) [Pending], Eosinophils (%) (Auto) [Pending], Basophils (%) (Auto) [Pending] Height (Feet): 5 Height (Inches): 3.00 Weight (Pounds): 121 Objective General Appearance: WD/WN, alert Neck: supple Cardiovascular: regular rhythm Respiratory/Chest: chest wall non-tender, lungs clear, normal breath sounds Abdomen: normal bowel sounds, non tender, soft, no organomegaly Edema: no edema noted Arm (L), no edema noted Arm (R), no edema noted Leg (L), no edema noted Leg (R), no edema noted Pedal (L), no edema noted Pedal (R), no edema noted 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
[2018-08-28] MEDS: Xarelto 15mg tab ORAL SCH (08:23)
[2018-08-28] MEDS: Furosemide 40mg tab ORAL SCH (08:24)
[2018-08-28] MEDS: Losartan 50mg tab ORAL SCH (08:24)
[2018-08-28] MEDS: Docusate 100mg cap ORAL SCH (08:24)
[2018-08-28] MEDS: Atenolol 25mg tab ORAL SCH (08:25)
[2018-08-28] MEDS: Digoxin 0.125mg tab ORAL SCH (08:25)
[2018-08-28] MEDS: Spironolactone 25mg tab ORAL SCH (08:26)
[2018-08-28] MEDS: Pantoprazole Inj IVP SCH ×2 (08:26→21:00)
[2018-08-28 12:00] VITALS: BP 121/71
[2018-08-28] MEDS: D5NS 1,000 ML IV SCH (12:22)
[2018-08-28 16:00] VITALS: BP 124/68
--- NOTE | 2018-08-28 17:04 | General Progress Note ---
Assessment/Plan Assessment/Plan Assessment - Acute on chronic anemia - OB (+) Brown stool - arrhythmia / CM - on anticoagulation - h/o gastric CA, s/p antrectomy and Bill II - Azotemia / CRI - Mildly elevated BIli - chronic - gastric polyp - biopsied Recommendations - Transfuse PRN to keep Hg>7 - resume xarelto. - PPI - Follow labs Subjective Allergies: Coded Allergies: CODEINE (Verified Allergy, Unknown, 06/17/18) Subjective Feels OK no abdominal pain d/w patient re results Objective Last 24 Hour Vital Signs Date Time Temp Pulse Resp B/P (MAP) Pulse Ox O2 Delivery O2 Flow Rate FiO2 08/28/18 16:00 61 08/28/18 12:00 98.8 79 18 121/71 (88) 99 08/28/18 12:00 63 08/28/18 09:00 Room Air 08/28/18 08:25 73 08/28/18 08:25 73 137/70 08/28/18 08:24 130/78 08/28/18 07:50 98.1 73 19 137/70 (92) 99 08/28/18 07:46 81 08/28/18 04:00 98.4 80 20 130/78 (95) 98 08/28/18 04:00 65 08/28/18 00:00 98.0 78 20 136/90 (105) 100 08/28/18 00:00 69 08/27/18 21:00 Room Air 08/27/18 20:00 45 08/27/18 20:00 98.1 80 20 123/77 (92) 100 Intake and Output 08/27/18 08/28/18 19:00 07:00 Intake Total 340 ml 260 ml Balance 340 ml 260 ml Intake Oral 240 ml 260 ml IV Total 100 ml # Voids 2 3 Laboratory Tests 08/28/18 07:15: Stool Occult Blood Negative 08/28/18 07:17: White Blood Count 7.4, Red Blood Count 3.09L, Hemoglobin 7.8L, Hematocrit 24.8L , Mean Corpuscular Volume 80, Mean Corpuscular Hemoglobin 25.4L, Mean Corpuscular Hemoglobin Concent 31.7L, Red Cell Distribution Width 15.4H, Platelet Count 184, Mean Platelet Volume 8.7, Neutrophils (%) (Auto) , Lymphocytes (%) (Auto) , Monocytes (%) (Auto) , Eosinophils (%) (Auto) , Basophils (%) (Auto) , Differential Total Cells Counted 100, Neutrophils % ( Manual) 66, Lymphocytes % (Manual) 20, Monocytes % (Manual) 13H, Eosinophils % ( Manual) 0, Basophils % (Manual) 1, Band Neutrophils 0, Platelet Estimate Adequate, Platelet Morphology Normal, Hypochromasia 2+, Anisocytosis 1+, Microcytosis 1+ Height (Feet): 5 Height (Inches): 3.00 Weight (Pounds): 121 Objective WDWN AA woman NCAT supple CTA RRR Soft ND NT no edema nonfocal Mauro Stephenson MD Aug 28, 2018 17:04
[2018-08-28 20:00] VITALS: BP 113/77
[2018-08-29] VITALS: BP 140/79
[2018-08-29 04:00] VITALS: BP 132/69
[2018-08-29] MEDS: Sucralfate 1gm tab ORAL SCH (06:36)
[2018-08-29 07:38] LABS: HEMATOCRIT 23.9 % (37.0-47.0); HEMOGLOBIN 7.5 G/DL (12.0-16.0); MEAN CORPUSCULAR VOLUME 82 FL (80-99); PLATELET COUNT 164 K/UL (150-450); RED BLOOD COUNT 2.93 M/UL (4.20-5.40); RED CELL DISTRIBUTION WIDTH 15.8 % (11.6-14.8); WHITE BLOOD COUNT 8.6 K/UL (4.8-10.8)
[2018-08-29] MEDS: D5NS 1,000 ML IV SCH ×2 (08:15→09:45)
[2018-08-29 08:50] VITALS: BP 107/62
[2018-08-29] MEDS: Losartan 50mg tab ORAL SCH ×2 (09:00→09:44)
[2018-08-29] MEDS: Atenolol 25mg tab ORAL SCH ×2 (09:00→09:44)
[2018-08-29] MEDS: Pantoprazole Inj IVP SCH ×3 (09:00→20:15)
[2018-08-29] MEDS: Docusate 100mg cap ORAL SCH (09:00)
[2018-08-29] MEDS: Spironolactone 25mg tab ORAL SCH ×2 (09:00→09:44)
[2018-08-29] MEDS: Xarelto 15mg tab ORAL SCH ×2 (09:00→09:44)
[2018-08-29] MEDS: Digoxin 0.125mg tab ORAL SCH ×2 (09:00→09:43)
[2018-08-29] MEDS: Furosemide 40mg tab ORAL SCH ×2 (09:00→09:43)
--- NOTE | 2018-08-29 09:20 | General Progress Note ---
Assessment/Plan Problem List: (1) Anemia ICD Codes: D64.9 - Anemia, unspecified SNOMED: 557860738 (2) GI bleed ICD Codes: K92.2 - Gastrointestinal hemorrhage, unspecified SNOMED: 81742285 (3) A-fib ICD Codes: I48.91 - Unspecified atrial fibrillation SNOMED: 33911721 (4) Gastric cancer ICD Codes: C16.9 - Malignant neoplasm of stomach, unspecified SNOMED: 213123137 (5) Chest pain ICD Codes: R07.9 - Chest pain, unspecified SNOMED: 29344021 Status: stable, progressing Assessment/Plan PPI rx resume xarelto dc aspirin transfuse monitor h/h diuresis cardiac rx Subjective ROS Limited/Unobtainable: No Constitutional: Reports: malaise, weakness HEENT: Reports: no symptoms Cardiovascular: Reports: no symptoms Respiratory: Reports: no symptoms Gastrointestinal/Abdominal: Reports: no symptoms Genitourinary: Reports: no symptoms Neurologic/Psychiatric: Reports: no symptoms Endocrine: Reports: no symptoms Hematologic/Lymphatic: Reports: anemia Allergies: Coded Allergies: CODEINE (Verified Allergy, Unknown, 06/17/18) All Systems: reviewed and negative except above Subjective no bleeding noted.no fever or chills. no chest pain h/h slightly lower. endoscopy results noted. Objective Last 24 Hour Vital Signs Date Time Temp Pulse Resp B/P (MAP) Pulse Ox O2 Delivery O2 Flow Rate FiO2 08/29/18 08:56 83 08/29/18 08:50 98.2 76 19 107/62 (77) 98 08/29/18 04:00 76 08/29/18 04:00 97.6 88 19 132/69 (90) 98 08/29/18 00:00 80 08/29/18 00:00 98.5 80 18 140/79 (99) 96 08/28/18 21:00 Room Air 08/28/18 20:00 80 08/28/18 20:00 98.8 74 18 113/77 (89) 97 08/28/18 16:00 98.5 66 18 124/68 (86) 99 08/28/18 16:00 61 08/28/18 12:00 98.8 79 18 121/71 (88) 99 08/28/18 12:00 63 Intake and Output 08/28/18 08/29/18 19:00 07:00 Intake Total 360 ml Balance 360 ml Intake Oral 360 ml # Voids 3 3 # Bowel Movements 1 Laboratory Tests 08/29/18 06:15: White Blood Count 8.6, Red Blood Count 2.93L, Hemoglobin 7.5L, Hematocrit 23.9L , Mean Corpuscular Volume 82, Mean Corpuscular Hemoglobin 25.6L, Mean Corpuscular Hemoglobin Concent 31.3L, Red Cell Distribution Width 15.8H, Platelet Count 164, Mean Platelet Volume 8.0, Neutrophils (%) (Auto) , Lymphocytes (%) (Auto) , Monocytes (%) (Auto) , Eosinophils (%) (Auto) , Basophils (%) (Auto) , Differential Total Cells Counted 100, Neutrophils % ( Manual) 73, Lymphocytes % (Manual) 16L, Monocytes % (Manual) 10, Eosinophils % ( Manual) 1, Basophils % (Manual) 0, Band Neutrophils 0, Platelet Estimate Adequate, Platelet Morphology Normal, Hypochromasia 2+, Anisocytosis 1+ Height (Feet): 5 Height (Inches): 3.00 Weight (Pounds): 121 Objective General Appearance: WD/WN, alert Neck: supple Cardiovascular: regular rhythm Respiratory/Chest: chest wall non-tender, lungs clear, normal breath sounds Abdomen: normal bowel sounds, non tender, soft, no organomegaly Edema: no edema noted Arm (L), no edema noted Arm (R), no edema noted Leg (L), no edema noted Leg (R), no edema noted Pedal (L), no edema noted Pedal (R), no edema noted 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
[2018-08-29 12:35] VITALS: BP 127/69
[2018-08-29] MEDS ORDERED: Atenolol 25mg tab ORAL SCH (14:00)
[2018-08-29] MEDS ORDERED: Xarelto 10mg tab ORAL SCH (14:00)
[2018-08-29] MEDS ORDERED: Digoxin 0.125mg tab ORAL SCH (14:00)
[2018-08-29] MEDS ORDERED: Losartan 50mg tab ORAL SCH (14:00)
[2018-08-29] MEDS ORDERED: Spironolactone 25mg tab ORAL SCH (14:00)
[2018-08-29] MEDS ORDERED: Furosemide 40mg tab ORAL SCH (14:00)
[2018-08-29 16:00] VITALS: BP 128/74
--- NOTE | 2018-08-29 16:37 | General Progress Note ---
Assessment/Plan Assessment/Plan Assessment - Acute on chronic anemia - OB (+) Brown stool - arrhythmia / CM - on anticoagulation - h/o gastric CA, s/p antrectomy and Bill II - Azotemia / CRI - Mildly elevated BIli - chronic - gastric polyp - biopsied Recommendations - Transfuse PRN to keep Hg>7 - xarelto. - PPI - Follow labs Subjective Allergies: Coded Allergies: CODEINE (Verified Allergy, Unknown, 06/17/18) Subjective Feels OK no abdominal pain d/w patient re results Objective Last 24 Hour Vital Signs Date Time Temp Pulse Resp B/P (MAP) Pulse Ox O2 Delivery O2 Flow Rate FiO2 08/29/18 16:06 79 08/29/18 16:06 127/69 08/29/18 16:05 79 127/69 08/29/18 16:00 98.1 76 18 128/74 (92) 99 08/29/18 12:58 79 08/29/18 12:35 99.2 75 18 127/69 (88) 97 08/29/18 09:00 Room Air 08/29/18 09:00 107/62 08/29/18 09:00 83 08/29/18 09:00 83 107/62 08/29/18 08:56 83 08/29/18 08:50 98.2 76 19 107/62 (77) 98 08/29/18 04:00 76 08/29/18 04:00 97.6 88 19 132/69 (90) 98 08/29/18 00:00 80 08/29/18 00:00 98.5 80 18 140/79 (99) 96 08/28/18 21:00 Room Air 08/28/18 20:00 80 08/28/18 20:00 98.8 74 18 113/77 (89) 97 Intake and Output 08/28/18 08/29/18 19:00 07:00 Intake Total 360 ml Balance 360 ml Intake Oral 360 ml # Voids 3 3 # Bowel Movements 1 Laboratory Tests 08/29/18 06:15: White Blood Count 8.6, Red Blood Count 2.93L, Hemoglobin 7.5L, Hematocrit 23.9L , Mean Corpuscular Volume 82, Mean Corpuscular Hemoglobin 25.6L, Mean Corpuscular Hemoglobin Concent 31.3L, Red Cell Distribution Width 15.8H, Platelet Count 164, Mean Platelet Volume 8.0, Neutrophils (%) (Auto) , Lymphocytes (%) (Auto) , Monocytes (%) (Auto) , Eosinophils (%) (Auto) , Basophils (%) (Auto) , Differential Total Cells Counted 100, Neutrophils % ( Manual) 73, Lymphocytes % (Manual) 16L, Monocytes % (Manual) 10, Eosinophils % ( Manual) 1, Basophils % (Manual) 0, Band Neutrophils 0, Platelet Estimate Adequate, Platelet Morphology Normal, Hypochromasia 2+, Anisocytosis 1+ Height (Feet): 5 Height (Inches): 3.00 Weight (Pounds): 121 Objective WDWN AA woman NCAT supple CTA RRR Soft ND NT no edema nonfocal Mauro Stephenson MD Aug 29, 2018 16:37
[2018-08-29 20:00] VITALS: BP 137/87
[2018-08-30] VITALS: BP 130/80
[2018-08-30] MEDS: D5NS 1,000 ML IV SCH ×2 (03:23→15:00)
[2018-08-30 04:00] VITALS: BP 140/86
[2018-08-30] MEDS: Sucralfate 1gm tab ORAL SCH (05:33)
--- NOTE | 2018-08-30 07:33 | General Progress Note ---
Assessment/Plan Problem List: (1) Anemia ICD Codes: D64.9 - Anemia, unspecified SNOMED: 562957896 (2) GI bleed ICD Codes: K92.2 - Gastrointestinal hemorrhage, unspecified SNOMED: 49552012 (3) A-fib ICD Codes: I48.91 - Unspecified atrial fibrillation SNOMED: 15440030 (4) Gastric cancer ICD Codes: C16.9 - Malignant neoplasm of stomach, unspecified SNOMED: 600537920 (5) Chest pain ICD Codes: R07.9 - Chest pain, unspecified SNOMED: 64096247 Status: stable, progressing Assessment/Plan PPI rx resume xarelto transfuse prn monitor h/h diuresis cardiac rx add simethicone encourage pos Subjective ROS Limited/Unobtainable: No Constitutional: Reports: malaise, weakness HEENT: Reports: no symptoms Cardiovascular: Reports: no symptoms Respiratory: Reports: shortness of breath Gastrointestinal/Abdominal: Reports: abdominal pain Genitourinary: Reports: no symptoms Neurologic/Psychiatric: Reports: no symptoms Endocrine: Reports: no symptoms Hematologic/Lymphatic: Reports: anemia Allergies: Coded Allergies: CODEINE (Verified Allergy, Unknown, 06/17/18) All Systems: reviewed and negative except above Subjective no bleeding noted.no fever or chills. no chest pain s/p 1unit prbc. feels better except for abd pain. refused to eat yesterday. no vomiting. denies constipation Objective Last 24 Hour Vital Signs Date Time Temp Pulse Resp B/P (MAP) Pulse Ox O2 Delivery O2 Flow Rate FiO2 08/30/18 04:00 64 08/30/18 04:00 97.3 80 20 140/86 (104) 97 08/30/18 00:00 75 08/30/18 00:00 97.9 80 20 130/80 (97) 97 08/29/18 21:00 Room Air 08/29/18 20:00 80 08/29/18 20:00 97.5 84 20 137/87 (104) 95 08/29/18 16:06 79 08/29/18 16:06 127/69 08/29/18 16:05 79 127/69 08/29/18 16:00 98.1 76 18 128/74 (92) 99 08/29/18 15:24 73 08/29/18 12:58 79 08/29/18 12:35 99.2 75 18 127/69 (88) 97 08/29/18 09:00 Room Air 08/29/18 09:00 107/62 08/29/18 09:00 83 08/29/18 09:00 83 107/62 08/29/18 08:56 83 08/29/18 08:50 98.2 76 19 107/62 (77) 98 Intake and Output 08/29/18 08/30/18 18:59 06:59 Intake Total 360 ml 600 ml Balance 360 ml 600 ml Intake Oral 360 ml IV Total 600 ml # Voids 4 4 # Bowel Movements 1 Height (Feet): 5 Height (Inches): 3.00 Weight (Pounds): 121 Objective General Appearance: WD/WN, alert Neck: supple Cardiovascular: regular rhythm Respiratory/Chest: chest wall non-tender, lungs clear, normal breath sounds Abdomen: normal bowel sounds, non tender, soft, no organomegaly Edema: no edema noted Arm (L), no edema noted Arm (R), no edema noted Leg (L), no edema noted Leg (R), no edema noted Pedal (L), no edema noted Pedal (R), no edema noted 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
[2018-08-30 07:55] LABS: BASOPHILS % (AUTO) 0.9 % (0.0-2.0); EOSINOPHILS % (AUTO) 1.5 % (0.0-3.0); HEMATOCRIT 27.3 % (37.0-47.0); HEMOGLOBIN 8.8 G/DL (12.0-16.0); LYMPHOCYTES % (AUTO) 18.9 % (20.0-45.0); MEAN CORPUSCULAR VOLUME 82 FL (80-99); MONOCYTES % (AUTO) 11.1 % (1.0-10.0); NEUTROPHILS % (AUTO) 67.5 % (45.0-75.0); PLATELET COUNT 156 K/UL (150-450); RED BLOOD COUNT 3.33 M/UL (4.20-5.40); RED CELL DISTRIBUTION WIDTH 15.6 % (11.6-14.8); WHITE BLOOD COUNT 8.7 K/UL (4.8-10.8)
[2018-08-30 08:00] VITALS: BP 126/70
[2018-08-30] MEDS: Docusate 100mg cap ORAL SCH (09:00)
[2018-08-30] MEDS: Pantoprazole Inj IVP SCH ×2 (09:05→20:11)
[2018-08-30] MEDS: Digoxin 0.125mg tab ORAL SCH (09:05)
[2018-08-30] MEDS: Furosemide 40mg tab ORAL SCH (09:05)
[2018-08-30] MEDS: Spironolactone 25mg tab ORAL SCH (09:06)
[2018-08-30] MEDS: Atenolol 25mg tab ORAL SCH (09:06)
[2018-08-30] MEDS: Simethicone 80mg tab ORAL SCH ×3 (09:06→17:32)
[2018-08-30] MEDS: Losartan 50mg tab ORAL SCH (09:06)
[2018-08-30 09:13] LABS: AMYLASE 53 U/L (25-115)
[2018-08-30 09:22] LABS: ALANINE AMINOTRANSFERASE 11 U/L (12-78); ALBUMIN 2.6 G/DL (3.4-5.0); ALBUMIN/GLOBULIN RATIO 0.5 (1.0-2.7); ALKALINE PHOSPHATASE 83 U/L (46-116); ANION GAP 9 mmol/L (5-15); ASPARTATE AMINO TRANSFERASE 22 U/L (15-37); BILIRUBIN,TOTAL 2.3 MG/DL (0.2-1.0); BLOOD UREA NITROGEN 14 mg/dL (7-18); CALCIUM 8.2 MG/DL (8.5-10.1); CARBON DIOXIDE 23 MMOL/L (21-32); CHLORIDE 106 MMOL/L (98-107); POTASSIUM 3.7 MMOL/L (3.5-5.1); SODIUM 138 MMOL/L (136-145)
[2018-08-30 09:23] LABS: BILIRUBIN,DIRECT 0.4 MG/DL (0.0-0.3)
[2018-08-30 12:00] VITALS: BP 129/69
[2018-08-30 16:00] VITALS: BP 130/94
--- NOTE | 2018-08-30 16:26 | Diagnostic Imaging Report ---
Indication: Abdominal pain, abnormal liver function tests, abnormal renal function tests Technique: Nagy-scale and duplex images of the upper abdomen were obtained. Doppler interrogation of the hepatic and pancreatic vessels Comparison: Abdomen pelvis CT dated 06/19/2018, ultrasound dated 03/07/2011 Findings: The inferior vena cava and hepatic veins are dilated. Gallbladder demonstrates no stones. The gallbladder wall is mildly thickened. Sonographic Ambriz's sign is negative. Common bile duct measures 7 mm in diameter. No intrahepatic biliary ductal dilatation. Liver demonstrates slightly coarsened echogenicity, surface nodularity Portal vein and hepatic veins are patent. Pancreas is unremarkable. Spleen is unremarkable. Left kidney measures 10.8 cm in length. Right kidney measures 11.4 cm length. Both kidneys demonstrate slightly increased echogenicity. There is minimal fullness of the right renal collecting system. There are small right renal cysts . Non-aneurysmal abdominal aorta . There is ascites fluid present. There is bilateral pleural fluid and possibly a pericardial effusion Impression: Small amount of ascites fluid Bilateral pleural effusions Possible pericardial effusion Evidence of central venous hypertension Possible hepatic cirrhotic changes Negative for gallstones. Note that sludge in the gallbladder lumen described on prior CT is not evident on sonography Gallbladder wall thickening is likely related to the hemodynamic factors causing the above findings and/or liver disease. Acute acalculous cholecystitis not completely excludable, and consideration should be given to hepatobiliary nuclear scanning if there is high clinical suspicion Slightly increased renal echogenicity, could indicate medical renal disease Incidental finding small right renal cysts
[2018-08-30] MEDS: Xarelto 15mg tab ORAL SCH (17:32)
[2018-08-30 20:00] VITALS: BP 135/85
--- NOTE | 2018-08-30 21:00 | Progress Note ---
DATE: 08/30/2018 CARDIOLOGY PROGRESS NOTE SUBJECTIVE: The patient has not had any new bleeding. She was transfused yesterday a unit of packed red blood cells. She is more swollen. She has more shortness of breath. The patient recalls now that her Xarelto was stopped at one point and is not clear why she resumed it but says that it was just by the pharmacy. PHYSICAL EXAMINATION: VITAL SIGNS: Blood pressure 140/86, pulse 80, respiratory rate 20, afebrile. LUNGS: Diminished breath sounds. Few rales. HEART: Irregularly irregular rhythm. Normal S1 and S2. A 2/6 systolic apical murmur. A 2+ dependent edema. ABDOMEN: Soft and nontender. IMPRESSION: 1. Gastrointestinal bleeding. 2. Coagulopathy. 3. Nonischemic cardiomyopathy. 4. Acute on chronic systolic congestive heart failure. 5. Paroxysmal atrial and ventricular arrhythmias. 6. Cardiac defibrillator. 7. History of gastric cancer. PLAN: 1. Transfuse for hemoglobin less than 8 g. 2. Discontinue IV fluids. 3. Restart diuresis. 4. Maximize antifailure and antianginal regimen. 5. Reassess risk to benefit ratio of continued full anticoagulation. Miguel Mason M.D. DR: Rose Mary JOB#: [id number] CC:
--- NOTE | 2018-08-30 23:27 | General Progress Note ---
Assessment/Plan Assessment/Plan Assessment - Acute on chronic anemia - OB (+) Brown stool - arrhythmia / CM - on anticoagulation - h/o gastric CA, s/p antrectomy and Bill II - Azotemia / CRI - Mildly elevated BIli - chronic - abdominal pain and abnormal LFT - gastric polyp - biopsied Recommendations - Transfuse PRN - check HIDA CCK - xarelto. - PPI - Follow labs Subjective Allergies: Coded Allergies: CODEINE (Verified Allergy, Unknown, 06/17/18) Subjective Feels OK c/o some abdominal pain tolerating PO U/S ordered --> GB wall thickening Objective Last 24 Hour Vital Signs Date Time Temp Pulse Resp B/P (MAP) Pulse Ox O2 Delivery O2 Flow Rate FiO2 08/30/18 21:00 Room Air 08/30/18 20:00 81 08/30/18 20:00 97.3 79 20 135/85 (102) 99 08/30/18 16:00 97.8 81 21 130/94 (106) 96 08/30/18 16:00 55 08/30/18 12:00 97.5 80 19 129/69 (89) 96 08/30/18 12:00 67 08/30/18 09:06 126/70 08/30/18 09:06 75 126/70 08/30/18 09:05 75 08/30/18 09:00 Room Air 08/30/18 08:00 97.6 75 21 126/70 (88) 96 08/30/18 08:00 83 08/30/18 04:00 64 08/30/18 04:00 97.3 80 20 140/86 (104) 97 08/30/18 00:00 75 08/30/18 00:00 97.9 80 20 130/80 (97) 97 Intake and Output 08/29/18 08/30/18 19:00 07:00 Intake Total 410 ml 600 ml Balance 410 ml 600 ml Intake Oral 360 ml IV Total 50 ml 600 ml # Voids 4 4 # Bowel Movements 1 Laboratory Tests 08/30/18 06:05: White Blood Count 8.7, Red Blood Count 3.33L, Hemoglobin 8.8L, Hematocrit 27.3L , Mean Corpuscular Volume 82, Mean Corpuscular Hemoglobin 26.3L, Mean Corpuscular Hemoglobin Concent 32.1, Red Cell Distribution Width 15.6H, Platelet Count 156, Mean Platelet Volume 8.4, Neutrophils (%) (Auto) 67.5, Lymphocytes (%) (Auto) 18.9L, Monocytes (%) (Auto) 11.1H, Eosinophils (%) (Auto ) 1.5, Basophils (%) (Auto) 0.9, Sodium Level 138, Potassium Level 3.7, Chloride Level 106, Carbon Dioxide Level 23, Anion Gap 9, Blood Urea Nitrogen 14 , Creatinine 1.0, Estimat Glomerular Filtration Rate , Glucose Level 89, Calcium Level 8.2L, Total Bilirubin 2.3H, Direct Bilirubin 0.4H, Aspartate Amino Transf (AST/SGOT) 22, Alanine Aminotransferase (ALT/SGPT) 11L, Alkaline Phosphatase 83, Total Protein 8.1, Albumin 2.6L, Globulin 5.5, Albumin/Globulin Ratio 0.5L, Amylase Level 53, Lipase 167 Height (Feet): 5 Height (Inches): 3.00 Weight (Pounds): 121 Objective WDWN AA woman NCAT supple CTA RRR Soft ND NT no edema nonfocal Mauro Stephenson MD Aug 30, 2018 23:27
--- NOTE | 2018-08-30 23:30 | Discharge Summary ---
DATE OF ADMISSION: 08/25/2018 CARDIOLOGY PROGRESS NOTE Late entry for 08/29/2018. SUBJECTIVE: The patient continues to have dropping hemoglobin levels and received a packed red blood cell transfusion today with concomitant diuresis. She is off aspirin, but continues on anticoagulation with Xarelto for cardioembolic prophylaxis. OBJECTIVE: VITAL SIGNS: Blood pressure 107/62, pulse 76, and respirations 19. LUNGS: Bilateral breath sounds. HEART: Irregularly irregular rhythm. Normal S1, S2. A 2/6 holosystolic apical murmur. ABDOMEN: Soft. EXTREMITIES: +1 to 2+ pitting edema. LABORATORY DATA: White count 8.8 and hemoglobin 7.5. No chemistry panel today. IMPRESSION: 1. Gastrointestinal bleed, now resolved. 2. Anemia. 3. Coagulopathy. 4. 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 5. Paroxysmal atrial and ventricular arrhythmias. 6. Acute on chronic systolic congestive heart failure. 7. Acute renal failure recovering. 8. Moderate protein-calorie malnutrition. PLAN: 1. Maintain hemoglobin above 8 g. 2. Continue cautious anticoagulation and monitoring for recurring active bleeding. 3. Followup gastrointestinal results. 4. Titrate anti-failure regimen. Miguel Mason M.D. DR: HINA JOB#: [id number] CC:
[2018-08-31] VITALS: BP 130/91
[2018-08-31 04:00] VITALS: BP 138/80
[2018-08-31] MEDS: Sucralfate 1gm tab ORAL SCH (05:30)
[2018-08-31 08:00] VITALS: BP 131/77
--- NOTE | 2018-08-31 08:01 | General Progress Note ---
Assessment/Plan Assessment/Plan Assessment - Acute on chronic anemia - OB (+) Brown stool - arrhythmia / CM - on anticoagulation - h/o gastric CA, s/p antrectomy and Bill II - Azotemia / CRI - Mildly elevated BIli - chronic - abdominal pain and abnormal LFT - gastric polyp - biopsied Recommendations - Transfuse PRN - check HIDA CCK - xarelto. - PPI - Follow labs Subjective Allergies: Coded Allergies: CODEINE (Verified Allergy, Unknown, 06/17/18) Subjective Feels OK c/o some abdominal pain, epigast/LUQ NPO for HIDA U/S --> GB wall thickening d/w pt Objective Last 24 Hour Vital Signs Date Time Temp Pulse Resp B/P (MAP) Pulse Ox O2 Delivery O2 Flow Rate FiO2 08/31/18 04:00 98.0 80 20 138/80 (99) 95 08/31/18 04:00 83 08/31/18 00:00 98.2 84 20 130/91 (104) 99 08/31/18 00:00 69 08/30/18 21:00 Room Air 08/30/18 20:00 81 08/30/18 20:00 97.3 79 20 135/85 (102) 99 08/30/18 16:00 97.8 81 21 130/94 (106) 96 08/30/18 16:00 55 08/30/18 12:00 97.5 80 19 129/69 (89) 96 08/30/18 12:00 67 08/30/18 09:06 126/70 08/30/18 09:06 75 126/70 08/30/18 09:05 75 08/30/18 09:00 Room Air 08/30/18 08:00 97.6 75 21 126/70 (88) 96 08/30/18 08:00 83 Intake and Output 08/30/18 08/31/18 19:00 07:00 Intake Total 1260 ml Balance 1260 ml Intake Oral 760 ml IV Total 500 ml # Voids 3 Height (Feet): 5 Height (Inches): 3.00 Weight (Pounds): 121 Objective WDWN AA woman NCAT supple CTA RRR Soft ND NT no edema nonfocal Mauro Stephenson MD Aug 31, 2018 08:01
--- NOTE | 2018-08-31 08:12 | General Progress Note ---
Assessment/Plan Problem List: (1) Anemia ICD Codes: D64.9 - Anemia, unspecified SNOMED: 451610389 (2) GI bleed ICD Codes: K92.2 - Gastrointestinal hemorrhage, unspecified SNOMED: 26673708 (3) A-fib ICD Codes: I48.91 - Unspecified atrial fibrillation SNOMED: 02583797 (4) Gastric cancer ICD Codes: C16.9 - Malignant neoplasm of stomach, unspecified SNOMED: 195054583 (5) Chest pain ICD Codes: R07.9 - Chest pain, unspecified SNOMED: 52006775 Status: stable, progressing Assessment/Plan PPI rx resume xarelto transfuse prn monitor h/h diuresis with iv lasix per cards cardiac rx add simethicone encourage pos HIDA scan Subjective ROS Limited/Unobtainable: No Constitutional: Reports: malaise, weakness HEENT: Reports: no symptoms Cardiovascular: Reports: no symptoms Respiratory: Reports: no symptoms Gastrointestinal/Abdominal: Reports: abdomen distended, abdominal pain Genitourinary: Reports: no symptoms Neurologic/Psychiatric: Reports: no symptoms Endocrine: Reports: no symptoms Hematologic/Lymphatic: Reports: no symptoms Allergies: Coded Allergies: CODEINE (Verified Allergy, Unknown, 06/17/18) All Systems: reviewed and negative except above Subjective no events. continues to c/o abd pain. no fever or chills. on iv lasix. NPO for HIDA sca. Yandy with GB wall thickening Objective Last 24 Hour Vital Signs Date Time Temp Pulse Resp B/P (MAP) Pulse Ox O2 Delivery O2 Flow Rate FiO2 08/31/18 04:00 98.0 80 20 138/80 (99) 95 08/31/18 04:00 83 08/31/18 00:00 98.2 84 20 130/91 (104) 99 08/31/18 00:00 69 08/30/18 21:00 Room Air 08/30/18 20:00 81 08/30/18 20:00 97.3 79 20 135/85 (102) 99 08/30/18 16:00 97.8 81 21 130/94 (106) 96 08/30/18 16:00 55 08/30/18 12:00 97.5 80 19 129/69 (89) 96 08/30/18 12:00 67 08/30/18 09:06 126/70 11/19/18 09:06 75 126/70 08/30/18 09:05 75 08/30/18 09:00 Room Air Intake and Output 08/30/18 08/31/18 18:59 06:59 Intake Total 1310 ml Balance 1310 ml Intake Oral 760 ml IV Total 550 ml # Voids 3 Height (Feet): 5 Height (Inches): 3.00 Weight (Pounds): 121 Objective General Appearance: WD/WN, alert Neck: supple Cardiovascular: regular rhythm Respiratory/Chest: chest wall non-tender, lungs clear, normal breath sounds Abdomen: normal bowel sounds, non tender, soft, no organomegaly Edema: no edema noted Arm (L), no edema noted Arm (R), no edema noted Leg (L), no edema noted Leg (R), no edema noted Pedal (L), no edema noted Pedal (R), no edema noted 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
[2018-08-31] MEDS ORDERED: Morphine Sulfate 2mg/ml Inj IVP ONE (08:15)
[2018-08-31] MEDS: Losartan 50mg tab ORAL SCH (09:00)
[2018-08-31] MEDS: Atenolol 25mg tab ORAL SCH (09:00)
[2018-08-31] MEDS: Spironolactone 25mg tab ORAL SCH (09:00)
[2018-08-31] MEDS: Docusate 100mg cap ORAL SCH (09:00)
[2018-08-31] MEDS: Digoxin 0.125mg tab ORAL SCH (09:00)
[2018-08-31] MEDS: Simethicone 80mg tab ORAL SCH ×3 (09:00→17:06)
[2018-08-31] MEDS: Pantoprazole Inj IVP SCH ×2 (09:02→21:12)
[2018-08-31 09:47] LABS: BASOPHILS % (AUTO) 1.3 % (0.0-2.0); EOSINOPHILS % (AUTO) 2.3 % (0.0-3.0); HEMATOCRIT 27.7 % (37.0-47.0); HEMOGLOBIN 8.9 G/DL (12.0-16.0); LYMPHOCYTES % (AUTO) 19.4 % (20.0-45.0); MEAN CORPUSCULAR VOLUME 82 FL (80-99); MONOCYTES % (AUTO) 11.1 % (1.0-10.0); NEUTROPHILS % (AUTO) 65.9 % (45.0-75.0); PLATELET COUNT 156 K/UL (150-450); RED BLOOD COUNT 3.36 M/UL (4.20-5.40); RED CELL DISTRIBUTION WIDTH 15.9 % (11.6-14.8); WHITE BLOOD COUNT 8.1 K/UL (4.8-10.8)
[2018-08-31 09:59] LABS: ALANINE AMINOTRANSFERASE 8 U/L (12-78); ALBUMIN 2.7 G/DL (3.4-5.0); ALBUMIN/GLOBULIN RATIO 0.5 (1.0-2.7); ALKALINE PHOSPHATASE 80 U/L (46-116); ANION GAP 9 mmol/L (5-15); ASPARTATE AMINO TRANSFERASE 21 U/L (15-37); BILIRUBIN,TOTAL 2.1 MG/DL (0.2-1.0); BLOOD UREA NITROGEN 14 mg/dL (7-18); CALCIUM 8.3 MG/DL (8.5-10.1); CARBON DIOXIDE 26 MMOL/L (21-32); CHLORIDE 105 MMOL/L (98-107); CREATININE 0.9 MG/DL (0.55-1.30); POTASSIUM 3.4 MMOL/L (3.5-5.1); SODIUM 140 MMOL/L (136-145)
[2018-08-31 10:07] LABS: BILIRUBIN,DIRECT 0.5 MG/DL (0.0-0.3)
[2018-08-31 12:00] VITALS: BP 130/73
--- NOTE | 2018-08-31 13:32 | Diagnostic Imaging Report ---
Indication: Abdominal Pain Technique: 5.5 mCi of technetium 99 m-Choletec was injected intravenously. Planar imaging of the abdomen was then performed every 3 minutes up to 60 minutes. Delayed images were also obtained at 2 hours. Please note that per the angiography technologist the patient came out of scanner multiple times during the initial dynamic imaging to urinate. This results in mild artifact. Findings: There is prompt uptake within with washout of radiotracer from the liver on subsequent imaging. There is excretion into the biliary ducts. Gallbladder activity is present in a timely fashion indicating patency of the cystic duct. No bowel activity is noted on the initial one hour imaging. Tracer activity in the bowel is noted on the delayed 2 hour images. IMPRESSION: * No evidence to suggest cholecystitis. Radiotracer noted within the gallbladder by 20 minutes, indicating patency of the cystic duct. * No radiotracer noted in the bowel during the initial one hour dynamic imaging. Radiotracer noted to in the bowel on the delayed/2 hour follow-up images. This may suggest a degree of sphincter dysfunction. Clinical correlation recommended.
[2018-08-31 16:00] VITALS: BP 131/83
[2018-08-31] MEDS: Xarelto 15mg tab ORAL SCH (16:30)
[2018-08-31 20:00] VITALS: BP 137/70
[2018-09-01] VITALS: BP 120/65
--- NOTE | 2018-09-01 | Progress Note ---
DATE: 08/31/2018 CARDIOLOGY PROGRESS NOTE SUBJECTIVE: The patient is back on anticoagulation. No new bleeding noted. OBJECTIVE: VITAL SIGNS: Blood pressure 138/80, pulse 80, and respirations 20. Monitor, paced rhythm. NECK: Supple. LUNGS: Clear. CARDIAC: Regular rhythm and rate. Normal S1 and paradoxical S2. A 1/6 systolic apical murmur. ABDOMEN: Slightly distended, but no focal tenderness. Gallbladder with thickening on ultrasound. HIDA scan pending. EXTREMITIES: With 2+ dependent edema. IMPRESSION: 1. Abdominal pain, rule out cholecystitis. 2. History of gastric carcinoma. 3. Status post gastrointestinal bleed. 4. Coagulopathy. 5. Hypertensive cardiomyopathy. 6. Acute on chronic systolic congestive heart failure. 7. History of cardiac ventricular arrhythmias. 8. Paroxysmal atrial fibrillation. PLAN: 1. Await HIDA scan. 2. Continue diuresis. 3. Optimize anti-failure regimen. 4. Bowel regimen. 5. Serial hemoglobin. 6. Cautious anticoagulation. Miguel Mason M.D. DR: HINA JOB#: [id number] CC:
[2018-09-01 04:00] VITALS: BP 133/85
[2018-09-01] MEDS: Sucralfate 1gm tab ORAL SCH (06:19)
[2018-09-01 07:30] LABS: BASOPHILS % (AUTO) 1.4 % (0.0-2.0); EOSINOPHILS % (AUTO) 2.4 % (0.0-3.0); HEMATOCRIT 26.9 % (37.0-47.0); HEMOGLOBIN 8.5 G/DL (12.0-16.0); LYMPHOCYTES % (AUTO) 19.7 % (20.0-45.0); MEAN CORPUSCULAR VOLUME 82 FL (80-99); MONOCYTES % (AUTO) 10.7 % (1.0-10.0); NEUTROPHILS % (AUTO) 65.8 % (45.0-75.0); PLATELET COUNT 148 K/UL (150-450); RED BLOOD COUNT 3.29 M/UL (4.20-5.40); WHITE BLOOD COUNT 7.6 K/UL (4.8-10.8)
[2018-09-01 08:00] VITALS: BP 120/64
[2018-09-01 08:06] LABS: ALANINE AMINOTRANSFERASE 13 U/L (12-78); ALBUMIN 2.6 G/DL (3.4-5.0); ALBUMIN/GLOBULIN RATIO 0.5 (1.0-2.7); ALKALINE PHOSPHATASE 78 U/L (46-116); ANION GAP 9 mmol/L (5-15); ASPARTATE AMINO TRANSFERASE 18 U/L (15-37); BILIRUBIN,TOTAL 1.7 MG/DL (0.2-1.0); BLOOD UREA NITROGEN 16 mg/dL (7-18); CALCIUM 8.2 MG/DL (8.5-10.1); CARBON DIOXIDE 29 MMOL/L (21-32); CHLORIDE 103 MMOL/L (98-107); CREATININE 1.1 MG/DL (0.55-1.30); POTASSIUM 3.5 MMOL/L (3.5-5.1); SODIUM 141 MMOL/L (136-145)
[2018-09-01 08:07] LABS: BILIRUBIN,DIRECT 0.5 MG/DL (0.0-0.3)
--- NOTE | 2018-09-01 08:36 | General Progress Note ---
Assessment/Plan Problem List: (1) Anemia ICD Codes: D64.9 - Anemia, unspecified SNOMED: 892760231 (2) GI bleed ICD Codes: K92.2 - Gastrointestinal hemorrhage, unspecified SNOMED: 39258215 (3) A-fib ICD Codes: I48.91 - Unspecified atrial fibrillation SNOMED: 91512989 (4) Gastric cancer ICD Codes: C16.9 - Malignant neoplasm of stomach, unspecified SNOMED: 035353270 (5) Chest pain ICD Codes: R07.9 - Chest pain, unspecified SNOMED: 17063367 Status: stable, progressing Assessment/Plan PPI rx resume xarelto transfuse prn monitor h/h ?abd pain and increase lfts possibly due to hepatic congestion? diuresis with iv lasix per cards cardiac rx encourage pos Subjective ROS Limited/Unobtainable: No Constitutional: Reports: malaise, weakness HEENT: Reports: no symptoms Cardiovascular: Reports: no symptoms Respiratory: Reports: no symptoms Gastrointestinal/Abdominal: Reports: abdominal pain Genitourinary: Reports: no symptoms Neurologic/Psychiatric: Reports: no symptoms Endocrine: Reports: no symptoms Hematologic/Lymphatic: Reports: no symptoms Allergies: Coded Allergies: CODEINE (Verified Allergy, Unknown, 06/17/18) All Systems: reviewed and negative except above Subjective no events. continues to c/o abd pain. no fever or chills. on iv lasix. c/o urinating at night. still no eating well due to abd pain. HIDA scan nml Objective Last 24 Hour Vital Signs Date Time Temp Pulse Resp B/P (MAP) Pulse Ox O2 Delivery O2 Flow Rate FiO2 09/01/18 04:00 78 09/01/18 04:00 98.6 87 20 133/85 (101) 98 09/01/18 00:00 99.5 78 18 120/65 (83) 97 09/01/18 00:00 76 08/31/18 21:00 Room Air 08/31/18 20:00 76 08/31/18 20:00 98.1 90 18 137/70 (92) 100 08/31/18 16:00 98.5 85 18 131/83 (99) 99 08/31/18 16:00 75 08/31/18 12:00 97.7 87 20 130/73 (92) 95 08/31/18 12:00 68 08/31/18 09:00 Room Air 08/31/18 09:00 122/84 08/31/18 09:00 98 08/31/18 09:00 84 131/77 Intake and Output 08/31/18 09/01/18 18:59 06:59 Intake Total 480 ml 200 ml Balance 480 ml 200 ml Intake Oral 480 ml 200 ml # Voids 4 # Bowel Movements 2 Laboratory Tests 09/01/18 06:00: White Blood Count 7.6, Red Blood Count 3.29L, Hemoglobin 8.5L, Hematocrit 26.9L , Mean Corpuscular Volume 82, Mean Corpuscular Hemoglobin 25.8L, Mean Corpuscular Hemoglobin Concent 31.5L, Red Cell Distribution Width 16.0H, Platelet Count 148L, Mean Platelet Volume 8.4, Neutrophils (%) (Auto) 65.8, Lymphocytes (%) (Auto) 19.7L, Monocytes (%) (Auto) 10.7H, Eosinophils (%) (Auto ) 2.4, Basophils (%) (Auto) 1.4, Sodium Level 141, Potassium Level 3.5, Chloride Level 103, Carbon Dioxide Level 29, Anion Gap 9, Blood Urea Nitrogen 16 , Creatinine 1.1, Estimat Glomerular Filtration Rate , Glucose Level 105, Calcium Level 8.2L, Magnesium Level 1.3L, Total Bilirubin 1.7H, Direct Bilirubin 0.5H, Aspartate Amino Transf (AST/SGOT) 18, Alanine Aminotransferase ( ALT/SGPT) 13, Alkaline Phosphatase 78, Pro-B-Type Natriuretic Peptide 7000H, Total Protein 8.0, Albumin 2.6L, Globulin 5.4, Albumin/Globulin Ratio 0.5L Height (Feet): 5 Height (Inches): 3.00 Weight (Pounds): 119 Objective General Appearance: WD/WN, alert Neck: supple Cardiovascular: regular rhythm Respiratory/Chest: chest wall non-tender, lungs clear, normal breath sounds Abdomen: normal bowel sounds, non tender, soft, no organomegaly Edema: no edema noted Arm (L), no edema noted Arm (R), no edema noted Leg (L), no edema noted Leg (R), no edema noted Pedal (L), no edema noted Pedal (R), no edema noted 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
[2018-09-01] MEDS: Losartan 50mg tab ORAL SCH (09:26)
[2018-09-01] MEDS: Docusate 100mg cap ORAL SCH (09:26)
[2018-09-01] MEDS: Atenolol 25mg tab ORAL SCH (09:26)
[2018-09-01] MEDS: Digoxin 0.125mg tab ORAL SCH (09:27)
[2018-09-01] MEDS: Simethicone 80mg tab ORAL SCH ×3 (09:27→17:16)
[2018-09-01] MEDS: Pantoprazole Inj IVP SCH ×2 (09:28→22:16)
[2018-09-01] MEDS: Spironolactone 25mg tab ORAL SCH (09:28)
[2018-09-01 12:00] VITALS: BP 112/69
[2018-09-01 16:00] VITALS: BP 121/73
[2018-09-01] MEDS: Xarelto 15mg tab ORAL SCH (17:16)
[2018-09-01 20:00] VITALS: BP 116/77
--- NOTE | 2018-09-01 20:26 | General Progress Note ---
Assessment/Plan Assessment/Plan Assessment - Acute on chronic anemia - OB (+) Brown stool - arrhythmia / CM - on anticoagulation - h/o gastric CA, s/p antrectomy and Bill II - Azotemia / CRI - Mildly elevated BIli - chronic - abdominal pain and abnormal LFT - negative GI w/u - gastric polyp - biopsied Recommendations - Transfuse PRN - xarelto. - PPI - Follow labs - outpatient GI f/u Subjective Allergies: Coded Allergies: CODEINE (Verified Allergy, Unknown, 06/17/18) Subjective Feels OK no new complaints discussed with patient re negative w/u advised to see GI as outpatient for IBS medication trial Objective Last 24 Hour Vital Signs Date Time Temp Pulse Resp B/P (MAP) Pulse Ox O2 Delivery O2 Flow Rate FiO2 09/01/18 16:00 71 09/01/18 16:00 98.9 78 18 121/73 (89) 98 09/01/18 12:00 98.4 80 18 112/69 (83) 99 09/01/18 12:00 78 09/01/18 09:27 71 09/01/18 09:26 120/64 09/01/18 09:26 71 120/64 09/01/18 09:00 Room Air 09/01/18 08:00 98.2 71 18 120/64 (82) 100 09/01/18 08:00 80 09/01/18 04:00 78 09/01/18 04:00 98.6 87 20 133/85 (101) 98 09/01/18 00:00 99.5 78 18 120/65 (83) 97 09/01/18 00:00 76 08/31/18 21:00 Room Air Intake and Output 08/31/18 09/01/18 19:00 07:00 Intake Total 480 ml 200 ml Balance 480 ml 200 ml Intake Oral 480 ml 200 ml # Voids 4 # Bowel Movements 2 Laboratory Tests 09/01/18 06:00: White Blood Count 7.6, Red Blood Count 3.29L, Hemoglobin 8.5L, Hematocrit 26.9L , Mean Corpuscular Volume 82, Mean Corpuscular Hemoglobin 25.8L, Mean Corpuscular Hemoglobin Concent 31.5L, Red Cell Distribution Width 16.0H, Platelet Count 148L, Mean Platelet Volume 8.4, Neutrophils (%) (Auto) 65.8, Lymphocytes (%) (Auto) 19.7L, Monocytes (%) (Auto) 10.7H, Eosinophils (%) (Auto ) 2.4, Basophils (%) (Auto) 1.4, Sodium Level 141, Potassium Level 3.5, Chloride Level 103, Carbon Dioxide Level 29, Anion Gap 9, Blood Urea Nitrogen 16 , Creatinine 1.1, Estimat Glomerular Filtration Rate , Glucose Level 105, Calcium Level 8.2L, Magnesium Level 1.3L, Total Bilirubin 1.7H, Direct Bilirubin 0.5H, Aspartate Amino Transf (AST/SGOT) 18, Alanine Aminotransferase ( ALT/SGPT) 13, Alkaline Phosphatase 78, Pro-B-Type Natriuretic Peptide 7000H, Total Protein 8.0, Albumin 2.6L, Globulin 5.4, Albumin/Globulin Ratio 0.5L Height (Feet): 5 Height (Inches): 3.00 Weight (Pounds): 119 Objective WDWN AA woman NCAT supple CTA RRR Soft ND NT no edema nonfocal Mauro Stephenson MD Sep 01, 2018 20:26
--- NOTE | 2018-09-01 22:45 | Progress Note ---
DATE: 09/01/2018 CARDIOLOGY PROGRESS NOTE: SUBJECTIVE: The patient's condition is worsening. She is refusing diuretic therapy because she feels that she is constantly urinating. Looks she is retaining fluid. She refuses a catheter and does not want to receive additional IV therapy such as dobutamine, which has helped her in the past. OBJECTIVE: VITAL SIGNS: Blood pressure 112/69, pulse 80, and respirations 18. Monitor sinus with pacing and paroxysms of atrial fibrillation. LUNGS: Diminished breath sounds. Few rales. HEART: Regular rhythm and rate. Normal S1, S2 and a 2/6 systolic apical murmur. ABDOMEN: Soft with no ascites. EXTREMITIES: With 2+ edema bilaterally, right greater than left. LABORATORY DATA: Reviewed. IMPRESSION: 1. Acute on chronic systolic congestive heart failure. 2. Cardiogenic insufficiency. 3. Paroxysmal atrial and ventricular arrhythmias. 4. Chronic kidney disease. 5. Metabolic encephalopathy. 6. Possible urinary tract infection. 7. Anemia, status post GI bleed due to coagulopathy. PLAN: 1. Encourage compliance with diuretic therapy. 2. Continue efforts to place urinary catheter. 3. Start inotropic support with dobutamine. 4. Recheck urine studies. 5. Maximizing anti failure regimen. 6. Continue full anticoagulation and observe for recurring signs of bleeding. Miguel Mason M.D. DR: CHRISTIAN JOB#: [id number] CC:
[2018-09-02] VITALS: BP 121/72
[2018-09-02 04:00] VITALS: BP 125/76
[2018-09-02] MEDS: Sucralfate 1gm tab ORAL SCH (06:36)
[2018-09-02 08:00] VITALS: BP 119/72
[2018-09-02] MEDS: Simethicone 80mg tab ORAL SCH ×3 (08:55→17:26)
[2018-09-02] MEDS: Docusate 100mg cap ORAL SCH (08:55)
[2018-09-02] MEDS: Digoxin 0.125mg tab ORAL SCH (08:56)
[2018-09-02] MEDS: Losartan 50mg tab ORAL SCH (08:56)
[2018-09-02] MEDS: Atenolol 25mg tab ORAL SCH (08:56)
[2018-09-02] MEDS: Pantoprazole Inj IVP SCH ×2 (08:57→20:12)
[2018-09-02] MEDS: Spironolactone 25mg tab ORAL SCH (08:57)
--- NOTE | 2018-09-02 11:40 | General Progress Note ---
Assessment/Plan Problem List: (1) Anemia ICD Codes: D64.9 - Anemia, unspecified SNOMED: 278540575 (2) GI bleed ICD Codes: K92.2 - Gastrointestinal hemorrhage, unspecified SNOMED: 80198456 (3) A-fib ICD Codes: I48.91 - Unspecified atrial fibrillation SNOMED: 33077503 (4) Gastric cancer ICD Codes: C16.9 - Malignant neoplasm of stomach, unspecified SNOMED: 934385083 (5) Chest pain ICD Codes: R07.9 - Chest pain, unspecified SNOMED: 82454735 Status: stable, progressing Assessment/Plan PPI rx xarelto- monitor for bleeding transfuse prn monitor h/h diuresis with iv lasix per cards cardiac rx encourage pos pt/ot Subjective ROS Limited/Unobtainable: No Constitutional: Reports: malaise, weakness HEENT: Reports: no symptoms Cardiovascular: Reports: no symptoms Respiratory: Reports: SOB with excertion, SOB at rest Gastrointestinal/Abdominal: Reports: abdominal pain Genitourinary: Reports: no symptoms Neurologic/Psychiatric: Reports: no symptoms Endocrine: Reports: no symptoms Hematologic/Lymphatic: Reports: anemia Allergies: Coded Allergies: CODEINE (Verified Allergy, Unknown, 06/17/18) All Systems: reviewed and negative except above Subjective no complaints. still with abd pain and some sims. no chest pain no fevers. remains on iv lasix. Objective Last 24 Hour Vital Signs Date Time Temp Pulse Resp B/P (MAP) Pulse Ox O2 Delivery O2 Flow Rate FiO2 09/02/18 09:00 Room Air 09/02/18 08:56 119/72 09/02/18 08:56 82 09/02/18 08:56 82 119/72 09/02/18 08:00 98.4 82 18 119/72 (88) 99 09/02/18 08:00 92 09/02/18 04:00 82 09/02/18 04:00 98.9 92 17 125/76 (92) 96 09/02/18 00:00 79 09/02/18 00:00 98.6 81 19 121/72 (88) 97 09/01/18 21:00 Room Air 09/01/18 20:00 99.0 89 17 116/77 (90) 97 09/01/18 20:00 69 09/01/18 16:00 71 09/01/18 16:00 98.9 78 18 121/73 (89) 98 09/01/18 12:00 98.4 80 18 112/69 (83) 99 09/01/18 12:00 78 Intake and Output 09/01/18 09/02/18 19:00 07:00 Intake Total 360 ml 360 ml Output Total 450 ml Balance -90 ml 360 ml Intake Oral 360 ml 360 ml Output Urine Total 450 ml # Voids 2 2 Height (Feet): 5 Height (Inches): 3.00 Weight (Pounds): 119 Objective General Appearance: WD/WN, alert Neck: supple Cardiovascular: regular rhythm Respiratory/Chest: chest wall non-tender, lungs clear, normal breath sounds Abdomen: normal bowel sounds, non tender, soft, no organomegaly Edema: no edema noted Arm (L), no edema noted Arm (R), no edema noted Leg (L), no edema noted Leg (R), no edema noted Pedal (L), no edema noted Pedal (R), no edema noted 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
[2018-09-02 12:00] VITALS: BP 119/78
--- NOTE | 2018-09-02 13:34 | General Progress Note ---
Assessment/Plan Assessment/Plan Assessment - Acute on chronic anemia - OB (+) Brown stool - arrhythmia / CM - on anticoagulation - h/o gastric CA, s/p antrectomy and Bill II - Azotemia / CRI - Mildly elevated BIli - chronic - abdominal pain and abnormal LFT - negative GI w/u - gastric polyp - biopsied Recommendations - Transfuse PRN - xarelto. - monitor CBC - PPI - Follow labs - outpatient GI f/u Subjective Allergies: Coded Allergies: CODEINE (Verified Allergy, Unknown, 06/17/18) Subjective Feels OK no new complaints tolerating PO Objective Last 24 Hour Vital Signs Date Time Temp Pulse Resp B/P (MAP) Pulse Ox O2 Delivery O2 Flow Rate FiO2 09/02/18 09:00 Room Air 09/02/18 08:56 119/72 09/02/18 08:56 82 09/02/18 08:56 82 119/72 09/02/18 08:00 98.4 82 18 119/72 (88) 99 09/02/18 08:00 92 09/02/18 04:00 82 09/02/18 04:00 98.9 92 17 125/76 (92) 96 09/02/18 00:00 79 09/02/18 00:00 98.6 81 19 121/72 (88) 97 09/01/18 21:00 Room Air 09/01/18 20:00 99.0 89 17 116/77 (90) 97 09/01/18 20:00 69 09/01/18 16:00 71 09/01/18 16:00 98.9 78 18 121/73 (89) 98 Intake and Output 09/01/18 09/02/18 18:59 06:59 Intake Total 360 ml 360 ml Output Total 450 ml Balance -90 ml 360 ml Intake Oral 360 ml 360 ml Output Urine Total 450 ml # Voids 2 2 Height (Feet): 5 Height (Inches): 3.00 Weight (Pounds): 119 Objective WDWN AA woman NCAT supple CTA RRR Soft ND NT no edema nonfocal Mauro Stephenson MD Sep 02, 2018 13:34
[2018-09-02 16:00] VITALS: BP 128/71
[2018-09-02] MEDS: Xarelto 15mg tab ORAL SCH (17:26)
[2018-09-02 20:00] VITALS: BP 132/64
[2018-09-03] VITALS (8 sets, daily range): BP systolic 101–142; BP diastolic 61–74
[2018-09-03] MEDS: Sucralfate 1gm tab ORAL SCH (05:47)
[2018-09-03 05:53] LABS: BASOPHILS % (AUTO) 2.6 % (0.0-2.0); EOSINOPHILS % (AUTO) 2.6 % (0.0-3.0); HEMATOCRIT 26.8 % (37.0-47.0); HEMOGLOBIN 8.3 G/DL (12.0-16.0); LYMPHOCYTES % (AUTO) 24.2 % (20.0-45.0); MEAN CORPUSCULAR VOLUME 83 FL (80-99); MONOCYTES % (AUTO) 11.2 % (1.0-10.0); NEUTROPHILS % (AUTO) 59.4 % (45.0-75.0); PLATELET COUNT 136 K/UL (150-450); RED BLOOD COUNT 3.22 M/UL (4.20-5.40); RED CELL DISTRIBUTION WIDTH 16.3 % (11.6-14.8)
[2018-09-03 06:17] LABS: ALANINE AMINOTRANSFERASE 12 U/L (12-78); ALBUMIN 2.7 G/DL (3.4-5.0); ALBUMIN/GLOBULIN RATIO 0.5 (1.0-2.7); ALKALINE PHOSPHATASE 83 U/L (46-116); ANION GAP 5 mmol/L (5-15); ASPARTATE AMINO TRANSFERASE 24 U/L (15-37); BILIRUBIN,TOTAL 1.2 MG/DL (0.2-1.0); BLOOD UREA NITROGEN 15 mg/dL (7-18); CALCIUM 8.3 MG/DL (8.5-10.1); CARBON DIOXIDE 33 MMOL/L (21-32); CHLORIDE 102 MMOL/L (98-107); POTASSIUM 3.5 MMOL/L (3.5-5.1); SODIUM 140 MMOL/L (136-145)
[2018-09-03 06:45] LABS: BILIRUBIN,DIRECT 0.5 MG/DL (0.0-0.3)
--- NOTE | 2018-09-03 08:44 | General Progress Note ---
Assessment/Plan Problem List: (1) Anemia ICD Codes: D64.9 - Anemia, unspecified SNOMED: 755807952 (2) GI bleed ICD Codes: K92.2 - Gastrointestinal hemorrhage, unspecified SNOMED: 30956715 (3) A-fib ICD Codes: I48.91 - Unspecified atrial fibrillation SNOMED: 42357338 (4) Gastric cancer ICD Codes: C16.9 - Malignant neoplasm of stomach, unspecified SNOMED: 683597200 (5) Chest pain ICD Codes: R07.9 - Chest pain, unspecified SNOMED: 78825470 Status: stable, progressing Assessment/Plan PPI rx xarelto- monitor for bleeding transfuse prn monitor h/h diuresis with iv lasix per cards cardiac rx encourage pos pt/ot mobilize dc planning today Subjective ROS Limited/Unobtainable: No Constitutional: Reports: malaise, weakness HEENT: Reports: no symptoms Cardiovascular: Reports: no symptoms Respiratory: Reports: no symptoms Gastrointestinal/Abdominal: Reports: no symptoms Genitourinary: Reports: no symptoms Neurologic/Psychiatric: Reports: no symptoms Endocrine: Reports: no symptoms Hematologic/Lymphatic: Reports: no symptoms Allergies: Coded Allergies: CODEINE (Verified Allergy, Unknown, 06/17/18) All Systems: reviewed and negative except above Subjective no complaints. still with abd pain and some sims. no chest pain no fevers. remains on iv lasix. c/o urinating too much. thinks she feels well enough to go home Objective Last 24 Hour Vital Signs Date Time Temp Pulse Resp B/P (MAP) Pulse Ox O2 Delivery O2 Flow Rate FiO2 09/03/18 04:00 79 09/03/18 04:00 98.9 77 18 125/73 (90) 95 09/03/18 00:00 60 09/03/18 00:00 99.0 77 18 107/65 (79) 96 09/02/18 21:00 Room Air 09/02/18 20:00 63 09/02/18 20:00 98.9 78 19 132/64 (86) 98 09/02/18 16:00 98.0 77 18 128/71 (90) 99 09/02/18 16:00 66 09/02/18 12:00 98.3 71 18 119/78 (92) 99 09/02/18 12:00 92 09/02/18 09:00 Room Air 09/02/18 08:56 119/72 09/02/18 08:56 82 09/02/18 08:56 82 119/72 Intake and Output 09/02/18 09/03/18 19:00 07:00 Intake Total 1080 ml 500 ml Output Total 1000 ml Balance 80 ml 500 ml Intake Oral 1080 ml 500 ml Output Urine Total 1000 ml # Voids 2 Laboratory Tests 09/03/18 05:33: White Blood Count 6.0, Red Blood Count 3.22L, Hemoglobin 8.3L, Hematocrit 26.8L , Mean Corpuscular Volume 83, Mean Corpuscular Hemoglobin 25.9L, Mean Corpuscular Hemoglobin Concent 31.1L, Red Cell Distribution Width 16.3H, Platelet Count 136L, Mean Platelet Volume 9.4, Neutrophils (%) (Auto) 59.4, Lymphocytes (%) (Auto) 24.2, Monocytes (%) (Auto) 11.2H, Eosinophils (%) (Auto) 2.6, Basophils (%) (Auto) 2.6H, Sodium Level 140, Potassium Level 3.5, Chloride Level 102, Carbon Dioxide Level 33H, Anion Gap 5, Blood Urea Nitrogen 15, Creatinine 1.0, Estimat Glomerular Filtration Rate , Glucose Level 98, Calcium Level 8.3L, Magnesium Level 2.3, Total Bilirubin 1.2H, Direct Bilirubin 0.5H, Aspartate Amino Transf (AST/SGOT) 24, Alanine Aminotransferase (ALT/SGPT) 12, Alkaline Phosphatase 83, Pro-B-Type Natriuretic Peptide 4147H, Total Protein 8.2 , Albumin 2.7L, Globulin 5.5, Albumin/Globulin Ratio 0.5L, Digoxin Level 0.7L Height (Feet): 5 Height (Inches): 3.00 Weight (Pounds): 119 Objective General Appearance: WD/WN, alert Neck: supple Cardiovascular: regular rhythm Respiratory/Chest: chest wall non-tender, lungs clear, normal breath sounds Abdomen: normal bowel sounds, non tender, soft, no organomegaly Edema: no edema noted Arm (L), no edema noted Arm (R), no edema noted Leg (L), no edema noted Leg (R), no edema noted Pedal (L), no edema noted Pedal (R), no edema noted 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
[2018-09-03] MEDS: Digoxin 0.125mg tab ORAL SCH (08:54)
[2018-09-03] MEDS: Pantoprazole Inj IVP SCH ×3 (08:54→21:26)
[2018-09-03] MEDS: Docusate 100mg cap ORAL SCH ×2 (08:55→09:00)
[2018-09-03] MEDS: Simethicone 80mg tab ORAL SCH ×3 (08:55→17:36)
[2018-09-03] MEDS: Atenolol 25mg tab ORAL SCH (08:56)
[2018-09-03] MEDS: Spironolactone 25mg tab ORAL SCH (08:56)
[2018-09-03] MEDS: Losartan 50mg tab ORAL SCH (08:57)
[2018-09-03] MEDS ORDERED: LORazepam 1mg tab ORAL PRN (13:30)
[2018-09-03] MEDS: Xarelto 15mg tab ORAL SCH (17:36)
--- NOTE | 2018-09-03 18:53 | General Progress Note ---
Assessment/Plan Assessment/Plan Assessment - Acute on chronic anemia - OB (+) Brown stool - arrhythmia / CM - on anticoagulation - h/o gastric CA, s/p antrectomy and Bill II - Azotemia / CRI - Mildly elevated BIli - chronic - abdominal pain and abnormal LFT - negative GI w/u - gastric polyp - biopsied Recommendations - Transfuse PRN - xarelto. - monitor CBC - PPI - Follow labs - outpatient GI f/u Subjective Allergies: Coded Allergies: CODEINE (Verified Allergy, Unknown, 06/17/18) Subjective Feels OK no new complaints tolerating PO no events overnight Objective Last 24 Hour Vital Signs Date Time Temp Pulse Resp B/P (MAP) Pulse Ox O2 Delivery O2 Flow Rate FiO2 09/03/18 16:00 97.7 78 18 115/71 (86) 95 09/03/18 13:45 97.0 78 18 102/62 (75) 97 09/03/18 12:00 98.1 78 18 107/61 (76) 99 09/03/18 09:00 Room Air 09/03/18 08:57 112/70 09/03/18 08:56 71 112/70 09/03/18 08:54 71 09/03/18 08:00 98.7 71 19 112/70 (84) 97 09/03/18 08:00 71 09/03/18 04:00 79 09/03/18 04:00 98.9 77 18 125/73 (90) 95 09/03/18 00:00 60 09/03/18 00:00 99.0 77 18 107/65 (79) 96 09/02/18 21:00 Room Air 09/02/18 20:00 63 09/02/18 20:00 98.9 78 19 132/64 (86) 98 Intake and Output 09/02/18 09/03/18 18:59 06:59 Intake Total 1080 ml 500 ml Output Total 1000 ml Balance 80 ml 500 ml Intake Oral 1080 ml 500 ml Output Urine Total 1000 ml # Voids 2 Laboratory Tests 09/03/18 05:33: White Blood Count 6.0, Red Blood Count 3.22L, Hemoglobin 8.3L, Hematocrit 26.8L , Mean Corpuscular Volume 83, Mean Corpuscular Hemoglobin 25.9L, Mean Corpuscular Hemoglobin Concent 31.1L, Red Cell Distribution Width 16.3H, Platelet Count 136L, Mean Platelet Volume 9.4, Neutrophils (%) (Auto) 59.4, Lymphocytes (%) (Auto) 24.2, Monocytes (%) (Auto) 11.2H, Eosinophils (%) (Auto) 2.6, Basophils (%) (Auto) 2.6H, Sodium Level 140, Potassium Level 3.5, Chloride Level 102, Carbon Dioxide Level 33H, Anion Gap 5, Blood Urea Nitrogen 15, Creatinine 1.0, Estimat Glomerular Filtration Rate , Glucose Level 98, Calcium Level 8.3L, Magnesium Level 2.3, Total Bilirubin 1.2H, Direct Bilirubin 0.5H, Aspartate Amino Transf (AST/SGOT) 24, Alanine Aminotransferase (ALT/SGPT) 12, Alkaline Phosphatase 83, Pro-B-Type Natriuretic Peptide 4147H, Total Protein 8.2 , Albumin 2.7L, Globulin 5.5, Albumin/Globulin Ratio 0.5L, Digoxin Level 0.7L Height (Feet): 5 Height (Inches): 3.00 Weight (Pounds): 119 Objective WDWN AA woman NCAT supple CTA RRR Soft ND NT no edema nonfocal Mauro Stephenson MD Sep 03, 2018 18:53
[2018-09-04] VITALS (7 sets, daily range): BP systolic 106–125; BP diastolic 62–78
[2018-09-04] MEDS: Sucralfate 1gm tab ORAL SCH (06:18)
[2018-09-04] MEDS: Docusate 100mg cap ORAL SCH (08:55)
[2018-09-04] MEDS: Digoxin 0.125mg tab ORAL SCH (08:55)
[2018-09-04] MEDS: Losartan 50mg tab ORAL SCH (08:58)
[2018-09-04] MEDS: Atenolol 25mg tab ORAL SCH (08:58)
[2018-09-04] MEDS: Simethicone 80mg tab ORAL SCH ×3 (08:58→17:15)
[2018-09-04] MEDS: Spironolactone 25mg tab ORAL SCH (08:58)
[2018-09-04] MEDS: Pantoprazole Inj IVP SCH (08:59)
[2018-09-04 11:46] LABS: APPEARANCE,URINE CLEAR; BILIRUBIN, URINE NEGATIVE (NEGATIVE); GLUCOSE, URINE (UA) NEGATIVE (NEGATIVE); KETONES,URINE NEGATIVE (NEGATIVE); LEUKOCYTE ESTERASE ,URINE 1+ (NEGATIVE); NITRITE,URINE NEGATIVE (NEGATIVE); PH,URINE 7 (4.5-8.0); PROTEIN,URINE 2+ (NEGATIVE); UROBILINOGEN,URINE 4 MG/DL (0.0-1.0)
[2018-09-04 11:48] LABS: COLOR,URINE YELLOW
--- NOTE | 2018-09-04 12:48 | General Progress Note ---
Assessment/Plan Problem List: (1) Anemia ICD Codes: D64.9 - Anemia, unspecified SNOMED: 618610039 (2) GI bleed ICD Codes: K92.2 - Gastrointestinal hemorrhage, unspecified SNOMED: 86391163 (3) A-fib ICD Codes: I48.91 - Unspecified atrial fibrillation SNOMED: 56849778 (4) Gastric cancer ICD Codes: C16.9 - Malignant neoplasm of stomach, unspecified SNOMED: 455596397 (5) Chest pain ICD Codes: R07.9 - Chest pain, unspecified SNOMED: 78208761 Status: stable, progressing Assessment/Plan PPI rx xarelto- monitor for bleeding transfuse prn monitor h/h diuresis with po lasix per cards cardiac rx encourage pos pt/ot mobilize dc planning today Subjective ROS Limited/Unobtainable: No Constitutional: Reports: malaise, weakness HEENT: Reports: no symptoms Cardiovascular: Reports: no symptoms Respiratory: Reports: no symptoms Gastrointestinal/Abdominal: Reports: no symptoms Genitourinary: Reports: no symptoms Neurologic/Psychiatric: Reports: no symptoms Endocrine: Reports: no symptoms Hematologic/Lymphatic: Reports: no symptoms Allergies: Coded Allergies: CODEINE (Verified Allergy, Unknown, 06/17/18) All Systems: reviewed and negative except above Subjective no new complaints. no cp/sob. no fever or chills. ready to go home. Objective Last 24 Hour Vital Signs Date Time Temp Pulse Resp B/P (MAP) Pulse Ox O2 Delivery O2 Flow Rate FiO2 09/04/18 12:06 97.3 77 19 125/78 (94) 100 09/04/18 09:00 Room Air 09/04/18 08:58 106/66 09/04/18 08:58 85 106/66 09/04/18 08:55 85 09/04/18 08:00 98.2 85 20 106/66 (79) 97 09/04/18 04:53 98.1 81 18 116/67 (83) 98 09/04/18 00:00 98.4 83 18 118/65 (82) 98 09/03/18 23:29 Room Air 09/03/18 20:00 98.3 84 18 101/65 (77) 95 09/03/18 16:00 97.7 78 18 115/71 (86) 95 09/03/18 13:45 97.0 78 18 102/62 (75) 97 Intake and Output 09/03/18 09/04/18 19:00 07:00 Intake Total 220 ml Balance 220 ml Intake Oral 220 ml # Voids 3 # Bowel Movements 1 Laboratory Tests 09/04/18 11:11: Urine Color Yellow, Urine Appearance Clear, Urine pH 7, Urine Specific [place] 1.005, Urine Protein 2+H, Urine Glucose (UA) Negative, Urine Ketones Negative, Urine Blood Negative, Urine Nitrite Negative, Urine Bilirubin Negative, Urine Urobilinogen 4H, Urine Leukocyte Esterase 1+H, Urine RBC 2-4H, Urine WBC 2-4, Urine Squamous Epithelial Cells Few, Urine Bacteria Few Height (Feet): 5 Height (Inches): 3.00 Weight (Pounds): 119 Objective General Appearance: WD/WN, alert Neck: supple Cardiovascular: regular rhythm Respiratory/Chest: chest wall non-tender, lungs clear, normal breath sounds Abdomen: normal bowel sounds, non tender, soft, no organomegaly Edema: no edema noted Arm (L), no edema noted Arm (R), no edema noted Leg (L), no edema noted Leg (R), no edema noted Pedal (L), no edema noted Pedal (R), no edema noted Generalized Neurologic: practice performance manager II-XII grossly normal, alert, oriented x 3 Palomo Frankel MD Sep 04, 2018 12:48
[2018-09-04] MEDS: Xarelto 15mg tab ORAL SCH (17:15)
--- NOTE | 2018-09-04 17:41 | General Progress Note ---
Assessment/Plan Assessment/Plan Assessment - Acute on chronic anemia - OB (+) Brown stool - arrhythmia / CM - on anticoagulation - h/o gastric CA, s/p antrectomy and Bill II - Azotemia / CRI - Mildly elevated BIli - chronic - abdominal pain and abnormal LFT - negative GI w/u - gastric polyp - biopsied Recommendations - Transfuse PRN - xarelto. - monitor CBC - PPI - Follow labs - outpatient GI f/u for HBT/SIBO testing Subjective Allergies: Coded Allergies: CODEINE (Verified Allergy, Unknown, 06/17/18) Subjective Feels OK no new complaints tolerating PO no events overnight Objective Last 24 Hour Vital Signs Date Time Temp Pulse Resp B/P (MAP) Pulse Ox O2 Delivery O2 Flow Rate FiO2 09/04/18 16:00 98.1 77 20 110/62 (78) 98 09/04/18 12:06 97.3 77 19 125/78 (94) 100 09/04/18 09:00 Room Air 09/04/18 08:58 106/66 09/04/18 08:58 85 106/66 09/04/18 08:55 85 09/04/18 08:00 98.2 85 20 106/66 (79) 97 09/04/18 04:53 98.1 81 18 116/67 (83) 98 09/04/18 00:00 98.4 83 18 118/65 (82) 98 09/03/18 23:29 Room Air 09/03/18 20:00 98.3 84 18 101/65 (77) 95 Intake and Output 09/03/18 09/04/18 19:00 07:00 Intake Total 220 ml Balance 220 ml Intake Oral 220 ml # Voids 3 # Bowel Movements 1 Laboratory Tests 09/04/18 11:11: Urine Color Yellow, Urine Appearance Clear, Urine pH 7, Urine Specific [place] 1.005, Urine Protein 2+H, Urine Glucose (UA) Negative, Urine Ketones Negative, Urine Blood Negative, Urine Nitrite Negative, Urine Bilirubin Negative, Urine Urobilinogen 4H, Urine Leukocyte Esterase 1+H, Urine RBC 2-4H, Urine WBC 2-4, Urine Squamous Epithelial Cells Few, Urine Bacteria Few Height (Feet): 5 Height (Inches): 3.00 Weight (Pounds): 119 Objective WDWN AA woman NCAT supple CTA RRR Soft ND NT no edema nonfocal Mauro Stephenson MD Sep 04, 2018 17:41
[2018-09-05] VITALS: BP 113/68
[2018-09-05 00:07] VITALS: BP 124/71
[2018-09-05 04:00] VITALS: BP 137/68
[2018-09-05] MEDS: Sucralfate 1gm tab ORAL SCH (06:25)
[2018-09-05] MEDS: Simethicone 80mg tab ORAL SCH ×2 (08:40→13:27)
[2018-09-05] MEDS: Docusate 100mg cap ORAL SCH (08:40)
[2018-09-05] MEDS: Digoxin 0.125mg tab ORAL SCH (08:42)
[2018-09-05] MEDS: Spironolactone 25mg tab ORAL SCH (08:43)
[2018-09-05] MEDS: Atenolol 25mg tab ORAL SCH (08:44)
[2018-09-05] MEDS: Losartan 50mg tab ORAL SCH (08:45)
--- NOTE | 2018-09-05 09:14 | General Progress Note ---
Assessment/Plan Problem List: (1) Anemia ICD Codes: D64.9 - Anemia, unspecified SNOMED: 329620412 (2) GI bleed ICD Codes: K92.2 - Gastrointestinal hemorrhage, unspecified SNOMED: 23754098 (3) A-fib ICD Codes: I48.91 - Unspecified atrial fibrillation SNOMED: 46603160 (4) Gastric cancer ICD Codes: C16.9 - Malignant neoplasm of stomach, unspecified SNOMED: 598325945 (5) Chest pain ICD Codes: R07.9 - Chest pain, unspecified SNOMED: 98358246 Status: stable, progressing Assessment/Plan PPI rx xarelto- monitor for bleeding transfuse prn monitor h/h diuresis with po lasix per cards cardiac rx encourage pos pt/ot mobilize dc planning today if family able to accept pt Subjective ROS Limited/Unobtainable: No Constitutional: Reports: malaise, weakness HEENT: Reports: no symptoms Cardiovascular: Reports: no symptoms Respiratory: Reports: no symptoms Gastrointestinal/Abdominal: Reports: abdominal pain Genitourinary: Reports: no symptoms Neurologic/Psychiatric: Reports: no symptoms Endocrine: Reports: no symptoms Hematologic/Lymphatic: Reports: anemia Allergies: Coded Allergies: CODEINE (Verified Allergy, Unknown, 06/17/18) All Systems: reviewed and negative except above Subjective no family available to pick pt up yesterday. no new complaint. same abd pain/ discomfort(chronic). No bleeding noted. no fever or chills. stable sob. Objective Last 24 Hour Vital Signs Date Time Temp Pulse Resp B/P (MAP) Pulse Ox O2 Delivery O2 Flow Rate FiO2 09/05/18 08:42 76 09/05/18 06:55 81 09/05/18 04:00 97.9 117 20 137/68 (91) 98 09/05/18 00:07 90 20 124/71 (88) 96 09/05/18 00:00 98.6 82 19 113/68 (83) 98 09/04/18 21:24 Room Air 09/04/18 20:02 97.9 92 19 108/64 (79) 95 09/04/18 16:00 98.1 77 20 110/62 (78) 98 09/04/18 12:06 97.3 77 19 125/78 (94) 100 Intake and Output 09/04/18 09/05/18 19:00 07:00 Intake Total 1200 ml 240 ml Balance 1200 ml 240 ml Intake Oral 1200 ml 240 ml # Voids 2 3 Laboratory Tests 09/04/18 11:11: Urine Color Yellow, Urine Appearance Clear, Urine pH 7, Urine Specific [place] 1.005, Urine Protein 2+H, Urine Glucose (UA) Negative, Urine Ketones Negative, Urine Blood Negative, Urine Nitrite Negative, Urine Bilirubin Negative, Urine Urobilinogen 4H, Urine Leukocyte Esterase 1+H, Urine RBC 2-4H, Urine WBC 2-4, Urine Squamous Epithelial Cells Few, Urine Bacteria Few Height (Feet): 5 Height (Inches): 3.00 Weight (Pounds): 119 Objective General Appearance: WD/WN, alert Neck: supple Cardiovascular: regular rhythm Respiratory/Chest: chest wall non-tender, lungs clear, normal breath sounds Abdomen: normal bowel sounds, non tender, soft, no organomegaly Edema: no edema noted Arm (L), no edema noted Arm (R), no edema noted Leg (L), no edema noted Leg (R), no edema noted Pedal (L), no edema noted Pedal (R), no edema noted Generalized Neurologic: home coordinator II-XII grossly normal, alert, oriented x 3 Palomo Frankel MD Sep 05, 2018 09:14
[2018-09-05 10:00] VITALS: BP 110/69
[2018-09-05 11:53] VITALS: BP 122/74
--- NOTE | 2018-09-05 15:12 | General Progress Note ---
Assessment/Plan Assessment/Plan Assessment - Acute on chronic anemia - OB (+) Brown stool - arrhythmia / CM - on anticoagulation - h/o gastric CA, s/p antrectomy and Bill II - Azotemia / CRI - Mildly elevated BIli - chronic - abdominal pain and abnormal LFT - negative GI w/u - gastric polyp - biopsied Recommendations - Transfuse PRN - xarelto. - monitor CBC - PPI - Follow labs - outpatient GI f/u for HBT/SIBO testing Subjective Allergies: Coded Allergies: CODEINE (Verified Allergy, Unknown, 06/17/18) Subjective Feels OK no new complaints tolerating PO no events overnight Objective Last 24 Hour Vital Signs Date Time Temp Pulse Resp B/P (MAP) Pulse Ox O2 Delivery O2 Flow Rate FiO2 09/05/18 11:53 97.7 114 20 122/74 (90) 99 09/05/18 10:00 98.1 117 20 110/69 (83) 97 09/05/18 09:00 Room Air 09/05/18 08:42 76 09/05/18 06:55 81 09/05/18 04:00 97.9 117 20 137/68 (91) 98 09/05/18 00:07 90 20 124/71 (88) 96 09/05/18 00:00 98.6 82 19 113/68 (83) 98 09/04/18 21:24 Room Air 09/04/18 20:02 97.9 92 19 108/64 (79) 95 09/04/18 16:00 98.1 77 20 110/62 (78) 98 Intake and Output 09/04/18 09/05/18 19:00 07:00 Intake Total 1200 ml 240 ml Balance 1200 ml 240 ml Intake Oral 1200 ml 240 ml # Voids 2 3 Height (Feet): 5 Height (Inches): 3.00 Weight (Pounds): 119 Objective WDWN AA woman NCAT supple CTA RRR Soft ND NT no edema nonfocal Mauro Stephenson MD Sep 05, 2018 15:12
[2018-09-05 16:00] VITALS: BP 122/76
[2018-09-05] MEDS: Xarelto 15mg tab ORAL SCH (16:30)
--- NOTE | 2018-09-06 01:30 | Progress Note ---
DATE: 09/02/2018 CARDIOLOGY PROGRESS NOTE SUBJECTIVE: The patient is upset about being in the hospital on the holiday. She still has leg swelling and is reluctant to take diuretics because of the difficulty getting up to void. She refused a Alarcon catheter last night. OBJECTIVE: VITAL SIGNS: Blood pressure 119/72, pulse 82, respiratory rate 18. Monitored rhythm, AFib with ventricular pacing. NECK: Elevated jugular venous pressure. LUNGS: Few rales. HEART: Irregularly irregular rhythm. Normal S1, paradoxically split S2. ABDOMEN: No ascites. EXTREMITIES: She has 2+ dependent lower extremity edema. IMPRESSION: Cardiogenic insufficiency with acute on chronic systolic congestive heart failure complicated by atrial and ventricular arrhythmias with underlying cardiac defibrillator and noncompliance issues. PLAN: Continue efforts as previously described to maximize diuresis and anti-failure therapy. Miguel Mason M.D. DR: Wilda JOB#: [id number] CC:
--- NOTE | 2018-09-06 01:30 | Progress Note ---
DATE: 09/05/2018 CARDIOLOGY PROGRESS NOTE: SUBJECTIVE: The patient has refused the residential facility. She has constipation. She still has leg swelling. She is more amenable to take her medication regularly specifically the diuretic. She is on anticoagulation for cardioembolic prophylaxis and no new bleeding complications have been noted. OBJECTIVE: VITAL SIGNS: Blood pressure 122/74, heart rate 76 to 114, respiratory 18 to 20, she is afebrile. residential monitor reveals AFib, rate controlled over the past 72 hours with rare episodes of rapid heart rate. LUNGS: Diminished breath sounds. HEART: Irregularly irregular rhythm. Paradoxically split S2. ABDOMEN: Soft. EXTREMITIES: 1+ dependent edema. IMPRESSION: The patient remains high risk due to the severity of her cardiogenic insufficiency. She has a cardiac defibrillator. Her medication regimen and dietary restrictions have been reviewed and outpatient followup arranged. Miguel Mason M.D. DR: CHRISTIAN JOB#: [id number] CC:
== END 2018-09-05 18:10 | disposition home or self-care (01) | DRG 377 ==
LOC: EMR 19:35 → 2W 19:38 → EDBEDREQ 20:00 → 2E 08-27 12:00 → 4E 09-03 13:12
PROC: 30233N1 Transfusion of Nonautologous Red Blood Cells into Peripheral Vein, Percutaneous Approach (ICD-10-PCS; principal; 2018-08-25)
PROC: 0DBA8ZX Excision of Jejunum, Via Natural or Artificial Opening Endoscopic, Diagnostic (ICD-10-PCS; 2018-08-27)
DX: K92.2 Gastrointestinal hemorrhage, unspecified (principal); I50.23 Acute on chronic systolic (congestive) heart failure; I42.0 Dilated cardiomyopathy; N17.9 Acute kidney failure, unspecified; E44.0 Moderate protein-calorie malnutrition; I13.0 Hypertensive heart and chronic kidney disease with heart failure and stage 1 through stage 4 chronic kidney disease, or unspecified chronic kidney disease; I47.2 Ventricular tachycardia; D62 Acute posthemorrhagic anemia; I43 Cardiomyopathy in diseases classified elsewhere; R79.1 Abnormal coagulation profile; I48.0 Paroxysmal atrial fibrillation; Z79.01 Long term (current) use of anticoagulants; Z95.810 Presence of automatic (implantable) cardiac defibrillator; Z85.028 Personal history of other malignant neoplasm of stomach; I11.0 Hypertensive heart disease with heart failure; Z86.74 Personal history of sudden cardiac arrest; E11.22 Type 2 diabetes mellitus with diabetic chronic kidney disease; N18.9 Chronic kidney disease, unspecified; E11.40 Type 2 diabetes mellitus with diabetic neuropathy, unspecified; Z88.6 Allergy status to analgesic agent; K31.7 Polyp of stomach and duodenum; Z90.3 Acquired absence of stomach [part of]; R07.9 Chest pain, unspecified
CPT/HCPCS: 36415; 71045; 76700; 78266; 80053; 80162; 81001; 81003; 82150; 82248; 82270; 83690; 83735; 83880; 84484; 85007; 85025; 85610; 85730; 86850; 86900; 86901; 86920; 87086; 87181; 93005; 94003; 94150; 99291; J2370; J8499

== ENCOUNTER 2018-11-19 15:49 | Inpatient (IN) | payer MEDICARE ==
[~2018-11-19] VITALS: Ht 165.1 cm; Wt 61.2 kg
[~2018-11-19 15:49] MED LIST changes: +ATENOLOL25 MG ORAL; +DOCUSATE SODIU100 MG ORAL; +LOSARTAN POTAS100 MG ORAL; +XARELTO15 MG ORAL
--- NOTE | 2018-11-20 17:00 | NUR ---
NURSE NOTES: Received patient on the floor. Patient alert and oriented x4. Patient oriented to the room and the use of the call light. Bed in the lowest position and call light within reach. I will continue to monitor the patient and implement care.
--- NOTE | 2018-11-20 19:20 | NUR ---
NURSE NOTES: Received report form Oneida MONTOYA, pt. in bed awake, A/O X's4- able to make needs known, no signs of distress noted cardiac or respiratory, bed in lowest position and call light within easy reach, bed alarm on, side rails up x's3 and safety brakes engaged, pt. appears to be clean and dry, pt. appears to be resting comfortably and no distress noted, comfort measures provided, Rt. hand 24G IV intact and patent, safety measures continued, will continue with plan of care. Addendum: 11/20/18 at 2055 by CHEMA DAVIS RN RN Side rails padded for seizure precautions.
--- NOTE | 2018-11-20 19:21 | NUR ---
HAND-OFF: Report given to JAN Garvin.
[2018-11-20 20:00] VITALS: BP 141/92
[2018-11-20] MEDS: Pantoprazole Inj IVP SCH (20:18)
[2018-11-20 20:47] LABS: HEMATOCRIT 24.1 % (37.0-47.0); HEMOGLOBIN 7.1 G/DL (12.0-16.0); MEAN CORPUSCULAR VOLUME 99 FL (80-99); PLATELET COUNT 123 K/UL (150-450); RED BLOOD COUNT 2.44 M/UL (4.20-5.40); RED CELL DISTRIBUTION WIDTH 17.7 % (11.6-14.8); WHITE BLOOD COUNT 5.3 K/UL (4.8-10.8)
[2018-11-20 20:57] LABS: ALANINE AMINOTRANSFERASE 19 U/L (12-78); ALBUMIN 3.6 G/DL (3.4-5.0); ALBUMIN/GLOBULIN RATIO 0.7 (1.0-2.7); ALKALINE PHOSPHATASE 81 U/L (46-116); ANION GAP 8 mmol/L (5-15); ASPARTATE AMINO TRANSFERASE 20 U/L (15-37); BILIRUBIN,TOTAL 1.2 MG/DL (0.2-1.0); BLOOD UREA NITROGEN 19 mg/dL (7-18); CALCIUM 8.9 MG/DL (8.5-10.1); CARBON DIOXIDE 26 MMOL/L (21-32); CHLORIDE 104 MMOL/L (98-107); CREATININE 0.8 MG/DL (0.55-1.30); POTASSIUM 3.4 MMOL/L (3.5-5.1); SODIUM 138 MMOL/L (136-145)
[2018-11-20 21:05] LABS: BILIRUBIN,DIRECT 0.4 MG/DL (0.0-0.3)
--- NOTE | 2018-11-20 21:35 | NUR ---
NURSE NOTE left msg for DR. Frankel, regarding abnormal labs hgb 7.1. HCT 24.1, platelets 123 and potassium 3.4- waiting for call back from doctor.
--- NOTE | 2018-11-20 22:31 | NUR ---
NURSE NOTES: Left msg for DR. walker, regarding abnormal labs HGB, HCT, Platelets and Potassium all low- waiting for call back from doctor.
--- NOTE | 2018-11-20 22:32 | NUR ---
NURSE NOTES: per , to order 1 unit PRBC and KCL 30mew x's1- will carry out orders. Addendum: 11/20/18 at 2235 by CHEMA DAVIS RN RN correction to msg above KCL 30meq x's1
[2018-11-20 23:40] VITALS: BP 138/68
--- NOTE | 2018-11-20 23:40 | NUR ---
NURSE NOTES: pre-transfusion Vital signs taken for transfusing 1U PRBC- b/p 138/68, temp 97.5 orally, resp 18, pulse 84, and pulse ox 98%- pt. appears to be stable and no distress noted.
[2018-11-20 23:55] VITALS: BP 128/80
--- NOTE | 2018-11-20 23:55 | NUR ---
NURSE NOTES: Vital Signs taken 15 minutes after blood transfusion started, B/P 128/80, resp 18, pulse ox 98%, pulse 78 and temp 97.7- pt. appears to be tolerating blood transfusion well and no distress noted. Will Continue to monitor pt. and with plan of care.
[2018-11-21] VITALS (7 sets, daily range): BP systolic 108–129; BP diastolic 62–80
--- NOTE | 2018-11-21 00:56 | NUR ---
NURSE NOTES: pt. appears to be continueing well with blood transfusion- will continue to monitor Patient.
--- NOTE | 2018-11-21 03:00 | NUR ---
NURSE NOTES: Post transfusion Vital signs taken- b/p 123/64, pulse 86, resp 16, pulse ox 99 and temp 98.1- pt. appears to have tolerated blood transfusion well and no distress noted- will continue to monitor pt. and with plan of care.
--- NOTE | 2018-11-21 05:00 | Consultation ---
DATE OF CONSULTATION: 11/20/2018 CARDIOLOGY CONSULTATION CONSULTING PHYSICIAN: Miguel Mason M.D. REQUESTING PHYSICIAN: Palomo Frankel M.D. REASON FOR CONSULTATION: Severe anemia in the setting of cardiomyopathy with cardiac defibrillator. HISTORY OF PRESENT ILLNESS: This is an 83-year-old female has a longstanding history of a dilated nonischemic cardiomyopathy with systolic dysfunction and cardiac defibrillator. She also has a history of sudden cardiac due to ventricular arrhythmias and paroxysmal atrial fibrillation. She has been on cardioembolic prophylaxis with rivaroxaban. She also has a known history of gastric cancer with surgical resection over five years ago and about a year ago to my recollection an endoscopy that was negative for recurrence. She was feeling weak over the past few weeks. Laboratory studies at my office revealed a hemoglobin of 7 and she attested dark stool. She has been on low dose aspirin and rivaroxaban, which were discontinued several days ago and she is admitted for further diagnostic workup and transfusion. She notes decreasing exercise capacity, increasing fatigue and some increasing leg swelling over the past week. PAST MEDICAL HISTORY: 1. Gastric cancer. 2. Iron deficiency anemia. 3. Type 2 diabetes mellitus. 4. Hyperlipidemia. 5. Nonischemic cardiomyopathy. 6. Paroxysmal ventricular tachycardia. 7. Paroxysmal atrial fibrillation. 8. Systolic dysfunction with congestive heart failure. 9. Cardiac defibrillator. 10. Osteoarthritis. ALLERGIES: Codeine. MEDICATIONS: Reviewed and reconciled. SOCIAL HISTORY: Negative for smoking, alcohol, or substance abuse. FAMILY HISTORY: Noncontributory. REVIEW OF SYSTEMS: No fevers or chills. No recent upper respiratory infection. She has received a flu vaccination this season. No history of asthma. No abnormal blood clotting. No history of seizure or stroke. Her diabetes is managed with oral therapy. There is no history of thyroid impairment. She has not tolerated amiodarone in the past. She has a history of atrial and ventricular arrhythmias. Her most recent echocardiogram revealed an ejection fraction of less than 35%. She has a cardiac defibrillator, it was interrogated within the last six months and functioning appropriately. PHYSICAL EXAMINATION: VITAL SIGNS: Blood pressure 138/68, pulse 84, respiratory rate 18, afebrile, oxygen saturation 94% to 98% on 2 liters nasal cannula. HEENT: Conjunctivae pink. Sclerae are anicteric. Oropharynx clear. NECK: Supple. Jugular venous pressure normal. LUNGS: With diminished breath sounds. No wheezing or rales. CARDIAC: Regular rhythm and rate. Normal S1, S2. A 1/6 systolic murmur at apex. Point of maximal impulse is diffuse. Cardiac defibrillator site on the left chest wall. ABDOMEN: Soft and nontender. EXTREMITIES: Good pulses, 1+ dependent edema. NEUROLOGIC: Nonfocal. LABORATORY DATA: Hemoglobin is 7.1. Potassium 3.4, BUN 19, creatinine 0.8. Albumin 3.6. Platelet 123,000. IMPRESSION: 1. Severe anemia. 2. GI bleeding. 3. History of gastric cancer. 4. Acute on chronic systolic congestive heart failure. 5. Cardiac defibrillator. 6. Paroxysmal atrial and ventricular arrhythmias. 7. Type 2 diabetes mellitus. 8. Hypokalemia. PLAN: 1. Holding anticoagulant and anti-platelet agents. 2. Transfuse to hemoglobin above 8 g. 3. Consideration for repeat endoscopy. 4. Diuresis. 5. Maximization of anti-failure regimen. 6. Continue beta-blockade. 7. Further recommendations will follow. 8. Replace potassium. 9. Check magnesium. Miguel Mason M.D. DR: GLORIA JOB#: [id number] CC:
[2018-11-21] MEDS: Sucralfate 1gm tab ORAL SCH ×3 (05:38→17:16)
[2018-11-21] MEDS ORDERED: Sucralfate 1gm tab ORAL SCH ×2 (06:30→09:00)
--- NOTE | 2018-11-21 07:21 | NUR ---
NURSE NOTES: Report received from JAN Pelletier. Patient awake. AOx4. In RA. Denies any pain or SOB. IV patent, flushed and SL. Bed on lowest position, side rails upx2, brakes engaged. Call light within easy reach.
--- NOTE | 2018-11-21 07:21 | NUR ---
HAND-OFF: Report given to Sendy Rn, pt. remains stable and no signs of distress noted.
[2018-11-21 08:15] LABS: ALANINE AMINOTRANSFERASE 13 U/L (12-78); ALBUMIN/GLOBULIN RATIO 0.6 (1.0-2.7); ALKALINE PHOSPHATASE 71 U/L (46-116); ANION GAP 11 mmol/L (5-15); ASPARTATE AMINO TRANSFERASE 23 U/L (15-37); BILIRUBIN,TOTAL 0.9 MG/DL (0.2-1.0); BLOOD UREA NITROGEN 14 mg/dL (7-18); CALCIUM 8.4 MG/DL (8.5-10.1); CARBON DIOXIDE 22 MMOL/L (21-32); CHLORIDE 106 MMOL/L (98-107); CREATININE 0.9 MG/DL (0.55-1.30); POTASSIUM 4.1 MMOL/L (3.5-5.1); SODIUM 139 MMOL/L (136-145)
--- NOTE | 2018-11-21 08:36 | NUR ---
CASE MANAGEMENT: INITIAL REVIEW 83 YO F PRESENTED TO OUR ED FROM HOME CC: Severe anemia in the setting of cardiomyopathy with cardiac defibrillator PMHx: dilated nonischemic cardiomyopathy with systolic dysfunction and cardiac defibrillator. sudden cardiac due to ventricular arrhythmias and paroxysmal atrial fibrillation SI:ANEMIA. GI BLEED. Blood pressure 138/68, pulse 84, respiratory rate 18,afebrile, oxygen saturation 94% to 98% on 2 liters NC Hemoglobin is 7.1. Potassium 3.4, BUN 19, creatinine 0.8. Albumin 3.6. Platelet 123,000 IS: PROTONIX IV Q12H ATENOLOL PO QD LANOXIN PO QD COZAAR PO QD ALDACTONE PO QD LASIX IV QD K DUR PO QD CARAFATE PO TIAC PATIENT ADMITTED TO TELE 11/21/2018 @ 0810 DCP: PATIENT TO BE DISCHARGED TO HOME ONCE MEDICALLY CLEARED. PLAN OF CARE: 1. Holding anticoagulant and anti-platelet agents. 2. Transfuse to hemoglobin above 8 g. 3. Consideration for repeat endoscopy. 4. Diuresis. 5. Maximization of anti-failure regimen. Addendum: 11/21/18 at 1439 by Maricel Guerin CM INTERQUAL MET FOR ACUTE
[2018-11-21] MEDS: Losartan 50mg tab ORAL SCH (08:54)
[2018-11-21] MEDS: Spironolactone 25mg tab ORAL SCH (08:55)
[2018-11-21] MEDS: Digoxin 0.125mg tab ORAL SCH (08:56)
[2018-11-21] MEDS: Pantoprazole Inj IVP SCH ×2 (08:56→21:19)
[2018-11-21] MEDS ORDERED: Atenolol 25mg tab ORAL SCH (09:00)
[2018-11-21] MEDS: Docusate 100mg cap ORAL SCH (09:00)
[2018-11-21] MEDS ORDERED: Furosemide 40mg tab ORAL SCH (09:00)
[2018-11-21 09:29] LABS: BASOPHILS % (AUTO) 1.6 % (0.0-2.0); EOSINOPHILS % (AUTO) 2.7 % (0.0-3.0); HEMATOCRIT 26.9 % (37.0-47.0); HEMOGLOBIN 8.4 G/DL (12.0-16.0); LYMPHOCYTES % (AUTO) 14.6 % (20.0-45.0); MEAN CORPUSCULAR VOLUME 95 FL (80-99); MONOCYTES % (AUTO) 10.8 % (1.0-10.0); NEUTROPHILS % (AUTO) 70.3 % (45.0-75.0); PLATELET COUNT 142 K/UL (150-450); RED BLOOD COUNT 2.82 M/UL (4.20-5.40); RED CELL DISTRIBUTION WIDTH 17.3 % (11.6-14.8); WHITE BLOOD COUNT 8.1 K/UL (4.8-10.8)
[2018-11-21] MEDS ORDERED: Tubing IV Secondary IV ONE (13:17)
[2018-11-21] MEDS ORDERED: Tubing Blood Filter IV ONE (13:17)
[2018-11-21] MEDS ORDERED: NS 275ml ONE (13:17)
--- NOTE | 2018-11-21 14:45 | History and Physical Report ---
DATE OF ADMISSION: 11/20/2018 CHIEF COMPLAINT: Possible gastrointestinal bleed. HISTORY OF PRESENT ILLNESS: The patient is an pleasant 83-year-old female. She has a history of dilated nonischemic cardiomyopathy. She has a history of defibrillator. She also has prior history of gastric cancer status post resection. She presented with complaints of two weeks of dark stools. She is on Xarelto and aspirin for stroke prophylaxis for paroxysmal atrial fibrillation. On evaluation here, she contacted her turning machine operator because of persistent black stools. He recommended discontinue her antiplatelet therapy and Xarelto and coming to the hospital. Here hemoglobin was 7. She is now status post one unit of packed red blood cells. She is now admitted for evaluation for gastrointestinal bleed. PAST MEDICAL HISTORY: As above. PAST SURGICAL HISTORY: As above. CURRENT MEDICATIONS: Reconciled and reviewed. ALLERGIES: Include Codeine. FAMILY HISTORY: Noncontributory. SOCIAL HISTORY: Negative for tobacco, ethanol, or drugs. REVIEW OF SYSTEMS: GENERAL: No fever or chills but positive malaise, weakness, and dizziness. HEENT: No headaches or visual changes. CARDIOPULMONARY: No chest pain or shortness of breath. GASTROINTESTINAL: No nausea or vomiting. Positive melena. No bright red blood per rectum. GENITOURINARY: No urgency or frequency. MUSCULOSKELETAL: No joint pain or swelling. NEUROLOGIC: No evidence of seizures. PHYSICAL EXAMINATION: VITAL SIGNS: Temperature 98.3, pulse 80, respirations 18, and blood pressure 120/69. GENERAL: The patient is well developed, no apparent distress. HEART: Regular rate and rhythm. LUNGS: Clear. ABDOMEN: Soft, nontender, nondistended. EXTREMITIES: Without clubbing, cyanosis. LABORATORY DATA: White count 5, hemoglobin 7, hematocrit 24, platelets of 123. Potassium 3.4. Natriuretic peptide level was 4500. ASSESSMENT: This is a pleasant female with a history of gastric carcinoma status post resection, history of paroxysmal atrial fibrillation, history of nonischemic cardiomyopathy, and AICD admitted with complaints of GI bleed. 1. GI bleed. 2. History of hypertension. 3. History of nonischemic cardiomyopathy and . 4. History of paroxysmal atrial fibrillation. PLAN: 1. Discontinue Xarelto and aspirin. 2. Transfuse hemoglobin greater than 8.5. 3. Cardiology consultation. 4. IV PPI. 5. Consider GI consultation. Palomo Frankel M.D. DR: Aung JOB#: [id number] CC:
--- NOTE | 2018-11-21 19:58 | NUR ---
HAND-OFF: Report given to JAN Lazcano. Patient in stable condition.
--- NOTE | 2018-11-21 20:00 | NUR ---
NURSE NOTES: Received report from Keshawn Kaba RN. Patient in bed AAO X4 with no complaints of acute pain at this time, kept clean, dry, and comfortable in bed. Able to express needs and wants appropriately with no difficulties. Safety precaution in place including seizure precaution; siderails x3 up and padded, call light within reach, bed in lowest position, brakes and alarm on at all times, suction equipment at bedside and bed is free from clutter. IV line intact and patent and is SL. Placed on continuos cardiac monitoring per protocol. Needs and wants anticipated and attended, will continue plan of care and monitor for any changes noted
[2018-11-21] MEDS ORDERED: Iron Sucrose 100 MG in NS 55 ML IVPB SCH (21:00)
[2018-11-22] VITALS: BP 113/72
--- NOTE | 2018-11-22 | Progress Note ---
DATE: 11/21/2018 SUBJECTIVE: The patient continues to feel weak, lightheaded, and dizzy upon standing. She received a unit of packed red blood cells. OBJECTIVE: VITAL SIGNS: Blood pressure 117/70, pulse 74, respiratory rate 18, and and afebrile. Monitored rhythm paced. LUNGS: A few rales. HEART: Regular rhythm and rate. Normal S1. Paradoxically split S2. ABDOMEN: Soft. EXTREMITIES: A 1+ dependent edema. LABORATORY DATA: White count 8.1 and hemoglobin 8.4. Potassium 4.1, BUN 14, and creatinine 0.9. Pro-natriuretic peptide is 4500 and albumin is 3. IMPRESSION: 1. Severe anemia, status post transfusion. 2. Acute on chronic systolic congestive heart failure. 3. Cardiac defibrillator. 4. Paroxysmal atrial fibrillation. 5. History of ventricular tachyarrhythmias. 6. Type 2 diabetes mellitus. 7. History of gastric cancer. PLAN: 1. Cardiac monitoring. 2. Cautious diuresis. 3. Titrate anti-failure regimen. 4. Continue to hold anticoagulants and antiplatelet drugs for now. 5. Await stool occult blood test. 6. IV iron replacement. 7. Outpatient defibrillator interrogation per schedule. Miguel Mason M.D. DR: LAVINIA JOB#: [id number] CC:
--- NOTE | 2018-11-22 03:45 | NUR ---
NURSE NOTES: Patient in bed asleep with no S/S of distress noted. Will continue to monitor
[2018-11-22 04:00] VITALS: BP 105/53
[2018-11-22] MEDS: Sucralfate 1gm tab ORAL SCH ×3 (05:54→16:48)
[2018-11-22 06:47] LABS: BASOPHILS % (AUTO) 1.1 % (0.0-2.0); EOSINOPHILS % (AUTO) 2.9 % (0.0-3.0); HEMATOCRIT 26.2 % (37.0-47.0); HEMOGLOBIN 8.2 G/DL (12.0-16.0); LYMPHOCYTES % (AUTO) 18.9 % (20.0-45.0); MEAN CORPUSCULAR VOLUME 93 FL (80-99); MONOCYTES % (AUTO) 12.6 % (1.0-10.0); NEUTROPHILS % (AUTO) 64.6 % (45.0-75.0); PLATELET COUNT 128 K/UL (150-450); RED BLOOD COUNT 2.83 M/UL (4.20-5.40); RED CELL DISTRIBUTION WIDTH 17.6 % (11.6-14.8); WHITE BLOOD COUNT 6.8 K/UL (4.8-10.8)
[2018-11-22 06:58] LABS: ANION GAP 6 mmol/L (5-15); BLOOD UREA NITROGEN 14 mg/dL (7-18); CALCIUM 8.5 MG/DL (8.5-10.1); CARBON DIOXIDE 28 MMOL/L (21-32); CHLORIDE 106 MMOL/L (98-107); SODIUM 140 MMOL/L (136-145)
--- NOTE | 2018-11-22 07:17 | NUR ---
HAND-OFF: Report given to Pallavi Jones RN. Patient in stable condition, endorsed plan of care.
--- NOTE | 2018-11-22 07:30 | NUR ---
NURSE NOTES: Received report from Moris Lazcano. Pt is sitting up in bed eating breakfast. Bed is in lowest position, side rails up X2, and call light is within reach. Will continue to monitor.
--- NOTE | 2018-11-22 08:19 | General Progress Note ---
Assessment/Plan Problem List: (1) Enteritis ICD Codes: K52.9 - Noninfective gastroenteritis and colitis, unspecified SNOMED: 59534592 (2) Chest pain (3) Dyspepsia ICD Codes: K30 - Dyspepsia SNOMED: 579681697 (4) Gastric cancer ICD Codes: C16.9 - Malignant neoplasm of stomach, unspecified SNOMED: 294968319 (5) GI bleed ICD Codes: K92.2 - Gastrointestinal hemorrhage, unspecified SNOMED: 82121559 Status: stable, progressing Assessment/Plan cont current rx PPI off xarelto await stool ob GI eval Subjective ROS Limited/Unobtainable: No Constitutional: Reports: malaise, weakness HEENT: Reports: no symptoms Cardiovascular: Reports: no symptoms Respiratory: Reports: no symptoms Gastrointestinal/Abdominal: Reports: black stools Genitourinary: Reports: no symptoms Neurologic/Psychiatric: Reports: no symptoms Endocrine: Reports: no symptoms Hematologic/Lymphatic: Reports: anemia Allergies: Coded Allergies: CODEINE (Verified Allergy, Unknown, 06/17/18) All Systems: reviewed and negative except above Subjective no events. without complaints. feels "a little dizzy." H/h stable. stool brown according to pt. no melena or brbpr Objective Last 24 Hour Vital Signs Date Time Temp Pulse Resp B/P (MAP) Pulse Ox O2 Delivery O2 Flow Rate FiO2 11/22/18 04:00 97.7 75 20 105/53 (70) 98 11/22/18 04:00 90 11/22/18 00:00 67 11/22/18 00:00 99.1 78 20 113/72 (86) 99 11/21/18 21:00 Nasal Cannula 2.0 11/21/18 20:00 70 11/21/18 20:00 97.4 77 20 108/63 (78) 100 11/21/18 16:00 70 11/21/18 16:00 98.5 77 18 115/63 (80) 99 11/21/18 12:00 89 11/21/18 12:00 98.4 74 18 117/70 (86) 97 11/21/18 09:00 Nasal Cannula 2.0 11/21/18 08:56 80 11/21/18 08:55 80 120/69 11/21/18 08:54 120/69 Intake and Output 11/21/18 11/22/18 18:59 06:59 Intake Total 480 ml Balance 480 ml Intake Oral 480 ml # Voids 2 2 Laboratory Tests 11/21/18 09:15: White Blood Count 8.1#, Red Blood Count 2.82L, Hemoglobin 8.4L, Hematocrit 26.9L , Mean Corpuscular Volume 95, Mean Corpuscular Hemoglobin 29.7, Mean Corpuscular Hemoglobin Concent 31.1L, Red Cell Distribution Width 17.3H, Platelet Count 142L, Mean Platelet Volume 7.9, Neutrophils (%) (Auto) 70.3, Lymphocytes (%) (Auto) 14.6L, Monocytes (%) (Auto) 10.8H, Eosinophils (%) (Auto ) 2.7, Basophils (%) (Auto) 1.6 11/21/18 15:55: Stool Occult Blood [Pending] 11/22/18 06:07: White Blood Count 6.8, Red Blood Count 2.83L, Hemoglobin 8.2L, Hematocrit 26.2L , Mean Corpuscular Volume 93, Mean Corpuscular Hemoglobin 29.0, Mean Corpuscular Hemoglobin Concent 31.3L, Red Cell Distribution Width 17.6H, Platelet Count 128L, Mean Platelet Volume 8.0, Neutrophils (%) (Auto) 64.6, Lymphocytes (%) (Auto) 18.9L, Monocytes (%) (Auto) 12.6H, Eosinophils (%) (Auto ) 2.9, Basophils (%) (Auto) 1.1, Sodium Level 140, Potassium Level 4.0, Chloride Level 106, Carbon Dioxide Level 28, Anion Gap 6, Blood Urea Nitrogen 14 , Creatinine 1.0, Estimat Glomerular Filtration Rate , Glucose Level 119H, Calcium Level 8.5, Magnesium Level 1.9 Height (Feet): 5 Height (Inches): 5.00 Weight (Pounds): 130 General Appearance: WD/WN, alert Neck: supple Cardiovascular: regular rhythm Respiratory/Chest: lungs clear, normal breath sounds, no respiratory distress Abdomen: normal bowel sounds, non tender, soft, no organomegaly Edema: no edema noted Arm (L), no edema noted Arm (R), no edema noted Leg (L), no edema noted Leg (R), no edema noted Pedal (L), no edema noted Pedal (R), no edema noted Generalized Palomo Frankel MD Nov 22, 2018 08:19
[2018-11-22] MEDS: Carvedilol 6.25mg Tab ORAL SCH ×2 (10:04→22:02)
[2018-11-22] MEDS: Losartan 50mg tab ORAL SCH (10:04)
[2018-11-22] MEDS: Docusate 100mg cap ORAL SCH (10:05)
[2018-11-22] MEDS: Spironolactone 25mg tab ORAL SCH (10:05)
[2018-11-22] MEDS: Digoxin 0.125mg tab ORAL SCH (10:05)
[2018-11-22] MEDS: Pantoprazole Inj IVP SCH (10:05)
--- NOTE | 2018-11-22 19:02 | NUR ---
CASE MANAGEMENT: REVIEW SI: ANEMIA . CHF T 99.1 HR 47 RR 20 BP 105/53 SAT 98% NC/2L H/H 8.2/26.2 LYMPH 18.9 MONO 12.6 IS: VENOFER IV QHS LASIX IV Q12HR K-DUR PO Q12HR PROTONIX QD DIGOXIN PO QD LOSARTAN PO QD ALDACTONE PO QD TELEMETRY UNIT STATUS' DCP: PATIENT IS FROM HOME
--- NOTE | 2018-11-22 19:49 | NUR ---
NURSE NOTES: RECEIVED PATENT SITTING IN BED, NO COMPLAINTS OF PAIN AT THIS TIME. FALL PRECAUTIONS IN PLACE: CALL LIGHT AND BEDSIDE TABLE WITHIN REACH, BED IN LOW POSITION. PLAN OF CARE REVIEWED.
[2018-11-22 20:00] VITALS: BP 109/63
[2018-11-22] MEDS: Iron Sucrose 100 MG in NS 55 ML IV SCH (22:04)
--- NOTE | 2018-11-22 23:00 | Progress Note ---
DATE: 11/22/2018 CARDIOLOGY PROGRESS NOTE SUBJECTIVE: The patient is still short of breath. Her legs are very swollen. She was transfused 1 unit of packed red blood cells. OBJECTIVE: VITAL SIGNS: Blood pressure 109/63, pulse 74, respiratory rate 18, and and afebrile. Monitored rhythm, paced. LUNGS: Diminished breath sounds. Few rales. HEART: Regular rhythm and rate. Normal S1, S2 with a 1/6 systolic apical murmur. EXTREMITIES: 2 to 3+ dependent edema. LABORATORY DATA: White count 6.8, hemoglobin 8.3. Potassium 4, BUN 14, creatinine 1. IMPRESSION: 1. 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 2. Anemia. 3. GI bleeding with occult positive stool. PLAN: 1. Iron replacement. 2. Diuresis. 3. Recheck hemoglobin. 4. Transfuse if further drop. 5. The patient refuses endoscopy at this time. May need to reconsider. 6. Hold anticoagulation and anti-platelet therapy at this time. 7. Alarcon catheter placed in to facilitate diuresis. Miguel Mason M.D. DR: Wilda JOB#: [id number] CC:
[2018-11-23 04:00] VITALS: BP 110/56
[2018-11-23] MEDS: Sucralfate 1gm tab ORAL SCH ×3 (05:53→15:45)
[2018-11-23 07:11] LABS: BASOPHILS % (AUTO) 1.1 % (0.0-2.0); EOSINOPHILS % (AUTO) 3.5 % (0.0-3.0); HEMATOCRIT 27.6 % (37.0-47.0); HEMOGLOBIN 8.6 G/DL (12.0-16.0); LYMPHOCYTES % (AUTO) 14.5 % (20.0-45.0); MEAN CORPUSCULAR VOLUME 94 FL (80-99); MONOCYTES % (AUTO) 13.5 % (1.0-10.0); NEUTROPHILS % (AUTO) 67.4 % (45.0-75.0); PLATELET COUNT 127 K/UL (150-450); RED BLOOD COUNT 2.96 M/UL (4.20-5.40); WHITE BLOOD COUNT 7.4 K/UL (4.8-10.8)
[2018-11-23 07:24] LABS: ALANINE AMINOTRANSFERASE 14 U/L (12-78); ALBUMIN 2.8 G/DL (3.4-5.0); ALBUMIN/GLOBULIN RATIO 0.6 (1.0-2.7); ALKALINE PHOSPHATASE 69 U/L (46-116); ANION GAP 6 mmol/L (5-15); ASPARTATE AMINO TRANSFERASE 20 U/L (15-37); BILIRUBIN,TOTAL 1.2 MG/DL (0.2-1.0); BLOOD UREA NITROGEN 16 mg/dL (7-18); CALCIUM 8.7 MG/DL (8.5-10.1); CARBON DIOXIDE 30 MMOL/L (21-32); CHLORIDE 102 MMOL/L (98-107); POTASSIUM 4.4 MMOL/L (3.5-5.1); SODIUM 138 MMOL/L (136-145)
[2018-11-23 07:28] LABS: BILIRUBIN,DIRECT 0.4 MG/DL (0.0-0.3)
--- NOTE | 2018-11-23 07:31 | NUR ---
NURSE NOTES: Received report from JNA Madrigal. Pt is laying in bed. Bed is in lowest position, side rails up X2, and call light is within reach. Will continue to monitor.
--- NOTE | 2018-11-23 07:45 | NUR ---
HAND-OFF: Report given to JAN PALMA. PATIENT RESTING IN BED, NO SIGNS OF DISTRESS NOTED.
[2018-11-23 08:00] VITALS: BP 115/65
--- NOTE | 2018-11-23 09:06 | General Progress Note ---
Assessment/Plan Problem List: (1) Enteritis ICD Codes: K52.9 - Noninfective gastroenteritis and colitis, unspecified SNOMED: 06787350 (2) Chest pain (3) Dyspepsia ICD Codes: K30 - Dyspepsia SNOMED: 133349468 (4) Gastric cancer ICD Codes: C16.9 - Malignant neoplasm of stomach, unspecified SNOMED: 690977246 (5) GI bleed ICD Codes: K92.2 - Gastrointestinal hemorrhage, unspecified SNOMED: 75736232 Status: stable, progressing Assessment/Plan cont current rx PPI off xarelto monitor stool ob refusing endoscopy Subjective ROS Limited/Unobtainable: No Constitutional: Reports: no symptoms, malaise, weakness HEENT: Reports: no symptoms Cardiovascular: Reports: no symptoms Respiratory: Reports: no symptoms Gastrointestinal/Abdominal: Reports: blood in stool Genitourinary: Reports: no symptoms Neurologic/Psychiatric: Reports: no symptoms Endocrine: Reports: no symptoms Hematologic/Lymphatic: Reports: anemia Allergies: Coded Allergies: CODEINE (Verified Allergy, Unknown, 06/17/18) All Systems: reviewed and negative except above Subjective no events. without complaints. stool ob positive. "weak" no chest pain or sob. off antiplt rx/anticoag Objective Last 24 Hour Vital Signs Date Time Temp Pulse Resp B/P (MAP) Pulse Ox O2 Delivery O2 Flow Rate FiO2 11/23/18 04:00 71 11/23/18 04:00 96.5 74 18 110/56 (74) 98 11/23/18 00:00 78 11/22/18 22:02 74 109/63 11/22/18 21:00 Nasal Cannula 2.0 11/22/18 20:00 84 11/22/18 20:00 97.8 74 19 109/63 (78) 97 11/22/18 16:00 47 11/22/18 15:56 Nasal Cannula 2.0 11/22/18 12:00 77 11/22/18 10:05 73 11/22/18 10:04 86 126/68 11/22/18 10:04 126/68 Intake and Output 11/22/18 11/23/18 19:00 07:00 Intake Total 730 ml 180 ml Output Total 800 ml 3000 ml Balance -70 ml -2820 ml Intake Oral 730 ml 120 ml IV Total 60 ml Output Urine Total 800 ml 3000 ml # Voids 5 # Bowel Movements 1 1 Laboratory Tests 11/23/18 06:20: White Blood Count 7.4, Red Blood Count 2.96L, Hemoglobin 8.6L, Hematocrit 27.6L , Mean Corpuscular Volume 94, Mean Corpuscular Hemoglobin 29.2, Mean Corpuscular Hemoglobin Concent 31.3L, Red Cell Distribution Width 17.0H, Platelet Count 127L, Mean Platelet Volume 8.8, Neutrophils (%) (Auto) 67.4, Lymphocytes (%) (Auto) 14.5L, Monocytes (%) (Auto) 13.5H, Eosinophils (%) (Auto ) 3.5H, Basophils (%) (Auto) 1.1, Sodium Level 138, Potassium Level 4.4, Chloride Level 102, Carbon Dioxide Level 30, Anion Gap 6, Blood Urea Nitrogen 16 , Creatinine 1.0, Estimat Glomerular Filtration Rate , Glucose Level 120H, Calcium Level 8.7, Total Bilirubin 1.2H, Direct Bilirubin 0.4H, Aspartate Amino Transf (AST/SGOT) 20, Alanine Aminotransferase (ALT/SGPT) 14, Alkaline Phosphatase 69, Pro-B-Type Natriuretic Peptide 3838H, Total Protein 7.4, Albumin 2.8L, Globulin 4.6, Albumin/Globulin Ratio 0.6L Height (Feet): 5 Height (Inches): 5.00 Weight (Pounds): 130 Objective General Appearance: WD/WN, alert Neck: supple Cardiovascular: regular rhythm Respiratory/Chest: lungs clear, normal breath sounds, no respiratory distress Abdomen: normal bowel sounds, non tender, soft, no organomegaly Edema: no edema noted Arm (L), no edema noted Arm (R), no edema noted Leg (L), no edema noted Leg (R), no edema noted Pedal (L), no edema noted Pedal (R), no edema noted Generalized Palomo Frankel MD Nov 23, 2018 09:06
[2018-11-23] MEDS: Docusate 100mg cap ORAL SCH (09:47)
[2018-11-23] MEDS: Spironolactone 25mg tab ORAL SCH (09:47)
[2018-11-23] MEDS: Carvedilol 6.25mg Tab ORAL SCH ×2 (09:48→20:55)
[2018-11-23] MEDS: Losartan 50mg tab ORAL SCH (09:48)
[2018-11-23] MEDS: Digoxin 0.125mg tab ORAL SCH (09:49)
[2018-11-23 12:00] VITALS: BP 101/54
--- NOTE | 2018-11-23 19:45 | NUR ---
HAND-OFF: Report given to JAN Del Toro. Plan of care endorsed.
[2018-11-23 20:00] VITALS: BP 97/55
[2018-11-23] MEDS: Iron Sucrose 100 MG in NS 55 ML IV SCH (20:54)
--- NOTE | 2018-11-23 21:00 | Progress Note ---
DATE: 11/23/2018 CARDIOLOGY PROGRESS NOTE SUBJECTIVE: The patient feels very weak, lightheaded, no energy but denies chest pain and has less shortness of breath. She had some discomfort in her abdomen and dyspepsia today. She still does not want to pursue an endoscopy at this time. She remains off anti-platelet and anticoagulant drugs. PHYSICAL EXAMINATION: VITAL SIGNS: Blood pressure 110/56, pulse 74, respiratory rate 18, and afebrile. LUNGS: Clear. CARDIAC: Regular rhythm and rate. Normal S1, paradoxically split S2. A 1/6 systolic apical murmur. ABDOMEN: No focal tenderness. EXTREMITIES: With 1+ dependent edema. LABORATORY AND DIAGNOSTIC DATA: Hemoglobin 8.6. BUN 16 and creatinine 1. Pro-natriuretic peptide decreased to 3800. Albumin 2.8. IMPRESSION: 1. GI bleeding, acute on chronic systolic congestive heart failure. 2. Cardiac defibrillator. 3. Paroxysmal atrial and ventricular arrhythmias. 4. Moderate protein-calorie malnutrition. 5. History of gastric cancer. 6. Type 2 diabetes mellitus. PLAN: 1. Continue diuresis. 2. Monitor hemoglobin, transfuse as needed. 3. Continue off anti-platelet and anticoagulant. 4. Protein supplement. 5. We will readdress diagnostic gastrointestinal workup prior to discharge. Miguel Mason M.D. DR: Rose Mary JOB#: [id number] CC:
--- NOTE | 2018-11-23 22:26 | NUR ---
NURSE NOTES: Received pt. and report from JAN Santana. Observe pt. resting in bed with both eyes open and watching TV. IV site is intact, asymptomatic, and patent. nuclear monitoring technician is in placed, bed is in the lowest position and locked, call light within reach. No acute distress noted at this time. Will continue plan of care.
[2018-11-24 04:00] VITALS: BP_SYST 105; BP_SYST 119; BP_DIAS 58; BP_DIAS 70
[2018-11-24] MEDS: Sucralfate 1gm tab ORAL SCH ×3 (06:05→16:14)
--- NOTE | 2018-11-24 07:34 | NUR ---
NURSE NOTES: Received report from JAN Anderson. Patient in bed resting, no active s/s cardiac, respiratory distress noticed at this time. Denies pain at this time. IV site on right hand 24G, asymptomatic, patent, intact. Endorsed positive of OB stool but patient refused endoscopy. Bed in lowest position, side rails up x2, call light within reach. Will continue to monitor.
--- NOTE | 2018-11-24 07:46 | NUR ---
HAND-OFF: Report given to JAN Mar.
[2018-11-24 08:00] VITALS: BP 131/61
[2018-11-24 08:01] VITALS: BP 131/61
--- NOTE | 2018-11-24 08:10 | NUR ---
NURSE NOTES: Dr. Frankel made aware patient has history of DM but no coverage ordered. No order given yet. Will continue to monitor.
[2018-11-24] MEDS: Docusate 100mg cap ORAL SCH (09:00)
[2018-11-24] MEDS: Spironolactone 25mg tab ORAL SCH (09:01)
[2018-11-24] MEDS: Digoxin 0.125mg tab ORAL SCH (09:01)
[2018-11-24] MEDS: Losartan 50mg tab ORAL SCH (09:02)
[2018-11-24] MEDS: Carvedilol 6.25mg Tab ORAL SCH ×2 (09:02→20:59)
--- NOTE | 2018-11-24 09:53 | General Progress Note ---
Assessment/Plan Problem List: (1) Enteritis ICD Codes: K52.9 - Noninfective gastroenteritis and colitis, unspecified SNOMED: 38564855 (2) Chest pain (3) Dyspepsia ICD Codes: K30 - Dyspepsia SNOMED: 040204942 (4) Gastric cancer ICD Codes: C16.9 - Malignant neoplasm of stomach, unspecified SNOMED: 142292748 (5) GI bleed ICD Codes: K92.2 - Gastrointestinal hemorrhage, unspecified SNOMED: 70677008 Status: stable, progressing Assessment/Plan cont current rx PPI off xarelto monitor stool ob monitor cbc refusing endoscopy Subjective ROS Limited/Unobtainable: No Constitutional: Reports: malaise, weakness HEENT: Reports: no symptoms Cardiovascular: Reports: no symptoms Respiratory: Reports: cough Gastrointestinal/Abdominal: Reports: abdominal pain Genitourinary: Reports: no symptoms Neurologic/Psychiatric: Reports: anxiety Endocrine: Reports: no symptoms Hematologic/Lymphatic: Reports: anemia Allergies: Coded Allergies: CODEINE (Verified Allergy, Unknown, 06/17/18) All Systems: reviewed and negative except above Subjective no events. without complaints. stool ob positive. feels"weak" no chest pain. or sob. off antiplt rx/anticoag Objective Last 24 Hour Vital Signs Date Time Temp Pulse Resp B/P (MAP) Pulse Ox O2 Delivery O2 Flow Rate FiO2 11/24/18 09:02 130 131/61 11/24/18 09:02 131/61 11/24/18 09:01 130 11/24/18 04:00 97.6 73 16 105/58 (74) 96 11/24/18 03:27 131 11/23/18 23:34 92 11/23/18 21:00 Nasal Cannula 2.0 11/23/18 20:55 80 97/55 11/23/18 20:00 78 11/23/18 20:00 97.0 80 16 97/55 (69) 97 11/23/18 16:00 69 11/23/18 12:00 76 11/23/18 12:00 98.3 75 12 101/54 (70) 99 Intake and Output 11/23/18 11/24/18 19:00 07:00 Intake Total 740 ml 260 ml Output Total 2750 ml 700 ml Balance -2010 ml -440 ml Intake Oral 740 ml 260 ml Output Urine Total 2750 ml 700 ml # Bowel Movements 3 1 Laboratory Tests 11/24/18 09:10: Hemoglobin A1c [Pending] Height (Feet): 5 Height (Inches): 5.00 Weight (Pounds): 135 Objective General Appearance: WD/WN, alert Neck: supple Cardiovascular: regular rhythm Respiratory/Chest: lungs clear, normal breath sounds, no respiratory distress Abdomen: normal bowel sounds, non tender, soft, no organomegaly Edema: no edema noted Arm (L), no edema noted Arm (R), no edema noted Leg (L), no edema noted Leg (R), no edema noted Pedal (L), no edema noted Pedal (R), no edema noted Generalized Palomo Frankel MD Nov 24, 2018 09:53
[2018-11-24 10:14] LABS: ALANINE AMINOTRANSFERASE 10 U/L (12-78); ALBUMIN 2.8 G/DL (3.4-5.0); ALBUMIN/GLOBULIN RATIO 0.6 (1.0-2.7); ALKALINE PHOSPHATASE 75 U/L (46-116); ANION GAP 5 mmol/L (5-15); ASPARTATE AMINO TRANSFERASE 19 U/L (15-37); BILIRUBIN,TOTAL 0.9 MG/DL (0.2-1.0); BLOOD UREA NITROGEN 14 mg/dL (7-18); CALCIUM 8.5 MG/DL (8.5-10.1); CARBON DIOXIDE 30 MMOL/L (21-32); CHLORIDE 102 MMOL/L (98-107); POTASSIUM 4.1 MMOL/L (3.5-5.1); SODIUM 137 MMOL/L (136-145)
[2018-11-24 11:00] LABS: BASOPHILS % (AUTO) 2.1 % (0.0-2.0); EOSINOPHILS % (AUTO) 3.9 % (0.0-3.0); HEMATOCRIT 28.7 % (37.0-47.0); HEMOGLOBIN 8.8 G/DL (12.0-16.0); LYMPHOCYTES % (AUTO) 11.9 % (20.0-45.0); MEAN CORPUSCULAR VOLUME 94 FL (80-99); MONOCYTES % (AUTO) 14.8 % (1.0-10.0); NEUTROPHILS % (AUTO) 67.3 % (45.0-75.0); PLATELET COUNT 137 K/UL (150-450); RED BLOOD COUNT 3.05 M/UL (4.20-5.40); RED CELL DISTRIBUTION WIDTH 16.9 % (11.6-14.8); WHITE BLOOD COUNT 7.2 K/UL (4.8-10.8)
[2018-11-24 12:00] VITALS: BP 100/61
--- NOTE | 2018-11-24 13:05 | NUR ---
RD ASSESSMENT & RECOMMENDATIONS SEE CARE ACTIVITY FOR COMPLETE ASSESSMENT DAILY ESTIMATED NEEDS: Needs based on Pulmonary, cardiac 58.6kg 25-30 kcals/kg 4848-0749 total kcals 1-1.5 g protein/kg 59-88 g total protein Fluid per MD. On lasix NUTRITION DIAGNOSIS: 1) Decreased sodium needs r/t cardiac history and fluid overload as evidenced by h/o CHF, as evidenced by elev BNP, on diuretics. CURRENT DIET: Cardiac PO DIET RECOMMENDATIONS: LOW NA, texture as tolerated ADDITIONAL RECOMMENDATIONS: * Standing weights as able for daily wts ----> OR RECALIBRATE CURRENT BED SCALE. * Monitor lytes daily on diuretics/ replete as needed * H/o DM, monitor BG, need for hypoglycemics and/or diet change * Add B-complex qdaily . .
[2018-11-24 16:00] VITALS: BP 98/56
--- NOTE | 2018-11-24 19:12 | NUR ---
NURSE NOTES: Received pt. from JAN Mar. Observed pt. asleep in bed. ekg monitor tech is in placed, IV site is intact, asymptomatic and patent. Bed is in the lowest position and locked, call light is within reach. No acute distress noted at this time. Will continue plan of care.
--- NOTE | 2018-11-24 19:21 | NUR ---
HAND-OFF: Report given to JAN Anderson.
[2018-11-24 20:00] VITALS: BP 116/79
[2018-11-24] MEDS: Iron Sucrose 100 MG in NS 55 ML IV SCH (20:44)
[2018-11-25] VITALS (7 sets, daily range): BP systolic 98–105; BP diastolic 52–64
--- NOTE | 2018-11-25 | Progress Note ---
CARDIOLOGY PROGRESS NOTE DATE: 11/24/2018 SUBJECTIVE: The patient is getting frustrated about having to stay in the hospital. She has a Alarcon catheter and is draining urine well. Her leg swelling has improved. She is very concerned about her muscle weakness and weight loss with loss of muscle as well overall. OBJECTIVE: VITAL SIGNS: Blood pressure 100/60, pulse 73, and respirations 16. Monitored rhythm is sinus with paroxysmal AFib and ventricular pacing. LUNGS: Clear. CARDIAC: Regular rhythm and rate. Normal S1, paradoxically split S2. A 1/6 systolic apical murmur. ABDOMEN: Soft and nontender. EXTREMITIES: With 1+ ankle edema now only. LABORATORY DATA: White count 7.2, hemoglobin 8.8. Sodium 137, potassium 4.1, bicarbonate 30, BUN 14, and creatinine 1. Glucose 129. Albumin 2.8. IMPRESSION: 1. Gastrointestinal bleed. 2. Anemia status post packed red blood cell transfusion. 3. Acute on chronic systolic congestive heart failure. 4. Cardiomyopathy. 5. Cardiac defibrillator. 6. Paroxysmal atrial and ventricular arrhythmias. PLAN: 1. Continue diuresis. Anticipate transition to oral maintenance diuretic over the next 24 hours. 2. Continue to hold anti-platelet and anticoagulants. 3. The patient is refusing to undergo an endoscopy at this time. 4. We will reassess as an outpatient. 5. We will likely resume rivaroxaban alone long-term for cardioembolic prophylaxis, but need to watch very closely for bleeding complications. Miguel Mason M.D. DR: MELI JOB#: [id number] CC:
[2018-11-25] MEDS: Sucralfate 1gm tab ORAL SCH ×3 (06:13→15:34)
--- NOTE | 2018-11-25 07:24 | NUR ---
NURSE NOTES: Received report from JAN Anderson. Patient in bed resting, no active s/s respiratory distress noticed at this time. Denies pain at this time, Alarcon Catheter draining well to gravity, IV site on right hand 24G, asymptomatic, patent, intact. AO x4, A. fib with HR 66. Bed in lowest position, side rails up x2, call light within reach. Will continue to monitor.
--- NOTE | 2018-11-25 07:25 | NUR ---
HAND-OFF: Report given to JAN Mar.
--- NOTE | 2018-11-25 07:59 | General Progress Note ---
Assessment/Plan Problem List: (1) Enteritis ICD Codes: K52.9 - Noninfective gastroenteritis and colitis, unspecified SNOMED: 40021279 (2) Chest pain (3) Dyspepsia ICD Codes: K30 - Dyspepsia SNOMED: 034538406 (4) Gastric cancer ICD Codes: C16.9 - Malignant neoplasm of stomach, unspecified SNOMED: 846252835 (5) GI bleed ICD Codes: K92.2 - Gastrointestinal hemorrhage, unspecified SNOMED: 49839769 Status: stable, progressing Assessment/Plan cont current rx PPI off xarelto monitor stool ob monitor cbc iv lasix refusing endoscopy dc planning tomorrow Subjective ROS Limited/Unobtainable: No Constitutional: Reports: malaise, weakness HEENT: Reports: no symptoms Cardiovascular: Reports: no symptoms Respiratory: Reports: shortness of breath Gastrointestinal/Abdominal: Reports: abdominal pain Genitourinary: Reports: no symptoms Neurologic/Psychiatric: Reports: anxiety Endocrine: Reports: no symptoms Hematologic/Lymphatic: Reports: no symptoms Allergies: Coded Allergies: CODEINE (Verified Allergy, Unknown, 06/17/18) All Systems: reviewed and negative except above Subjective no events. without complaints. stool ob positive. feels"weak" no chest pain. or sob. off antiplt rx/anticoag remains on iv lasix. less abd pain states stool has been brown Objective Last 24 Hour Vital Signs Date Time Temp Pulse Resp B/P (MAP) Pulse Ox O2 Delivery O2 Flow Rate FiO2 11/25/18 04:00 98.0 69 16 101/64 (76) 95 11/25/18 04:00 66 11/25/18 00:00 73 11/25/18 00:00 98.4 88 17 105/58 (74) 100 11/24/18 21:00 Room Air 11/24/18 20:59 99 116/79 11/24/18 20:00 98.8 99 19 116/79 (91) 98 11/24/18 19:35 85 11/24/18 16:00 98.2 75 16 98/56 (70) 98 11/24/18 16:00 70 11/24/18 12:00 98.5 73 16 100/61 (74) 98 11/24/18 12:00 70 11/24/18 09:02 130 131/61 11/24/18 09:02 131/61 11/24/18 09:01 130 11/24/18 09:00 Room Air 11/24/18 08:01 97.9 73 16 131/61 (84) 96 11/24/18 08:00 88 Intake and Output 11/24/18 11/25/18 19:00 07:00 Intake Total 600 ml Output Total 1100 ml Balance -500 ml Intake Oral 600 ml Output Urine Total 1100 ml # Voids 2 3 # Bowel Movements 1 Laboratory Tests 11/24/18 09:10: Sodium Level 137, Potassium Level 4.1, Chloride Level 102, Carbon Dioxide Level 30, Anion Gap 5, Blood Urea Nitrogen 14, Creatinine 1.0, Estimat Glomerular Filtration Rate , Glucose Level 129H, Hemoglobin A1c 5.5, Calcium Level 8.5, Total Bilirubin 0.9, Aspartate Amino Transf (AST/SGOT) 19, Alanine Aminotransferase (ALT/SGPT) 10L, Alkaline Phosphatase 75, Total Protein 7.7, Albumin 2.8L, Globulin 4.9, Albumin/Globulin Ratio 0.6L 11/24/18 10:48: White Blood Count 7.2, Red Blood Count 3.05L, Hemoglobin 8.8L, Hematocrit 28.7L , Mean Corpuscular Volume 94, Mean Corpuscular Hemoglobin 28.9, Mean Corpuscular Hemoglobin Concent 30.7L, Red Cell Distribution Width 16.9H, Platelet Count 137L, Mean Platelet Volume 8.3, Neutrophils (%) (Auto) 67.3, Lymphocytes (%) (Auto) 11.9L, Monocytes (%) (Auto) 14.8H, Eosinophils (%) (Auto ) 3.9H, Basophils (%) (Auto) 2.1H Height (Feet): 5 Height (Inches): 5.00 Weight (Pounds): 135 Objective General Appearance: WD/WN, alert Neck: supple Cardiovascular: regular rhythm Respiratory/Chest: lungs clear, normal breath sounds, no respiratory distress Abdomen: normal bowel sounds, non tender, soft, no organomegaly Edema: no edema noted Arm (L), no edema noted Arm (R), no edema noted Leg (L), no edema noted Leg (R), no edema noted Pedal (L), no edema noted Pedal (R), no edema noted Generalized Palomo Frankel MD Nov 25, 2018 07:59
[2018-11-25] MEDS: Carvedilol 6.25mg Tab ORAL SCH ×2 (08:12→21:08)
[2018-11-25] MEDS: Losartan 50mg tab ORAL SCH (08:13)
[2018-11-25] MEDS: Digoxin 0.125mg tab ORAL SCH (08:13)
[2018-11-25] MEDS: Spironolactone 25mg tab ORAL SCH (08:13)
[2018-11-25] MEDS: Docusate 100mg cap ORAL SCH (08:14)
--- NOTE | 2018-11-25 13:52 | NUR ---
FRUIT AND VEGETABLE INSPECTORALTERNATIVE DISPUTE RESOLUTION MEDIATOR SI: GI BLEED T.98.0 HR 73 RR 20 B/P 154/113 RA 98% IS: LASIX IV PROTONIX IV K-DUR PO TELE STATUS
--- NOTE | 2018-11-25 19:21 | NUR ---
HAND-OFF: Report given to JAN Aggarwal.
--- NOTE | 2018-11-25 19:25 | NUR ---
NURSE NOTES: Received report from JAN Mar. Patient awake, alert and verbally responsive. No SOB, no acute distress, denies any pain nor any discomfort at this time. IV site on R hand #24, patent and intact. Bed at lowest position, call light within reach. Will continue plan of care.
[2018-11-25] MEDS: Iron Sucrose 100 MG in NS 55 ML IV SCH (20:59)
[2018-11-26] VITALS: BP 130/69
--- NOTE | 2018-11-26 01:30 | Progress Note ---
CARDIOLOGY PROGRESS NOTE DATE: 11/25/2018 SUBJECTIVE: The patient notes stool has been brown. She has no abdominal pain. She feels very weak, but improved. OBJECTIVE: VITAL SIGNS: Blood pressure 101/64, pulse 69, and respirations 16. Afebrile. LUNGS: Good breath sounds. No rales. CARDIAC: Regular rhythm and rate. Normal S1, paradoxically split S2. A 1/6 systolic murmur at apex. ABDOMEN: Soft, nontender. EXTREMITIES: With trace edema now. IMPRESSION: Improved but at risk of GI bleeding on anticoagulation. PLAN: 1. Discontinue Alarcon. 2. Transition from IV to oral maintenance diuretic dose. 3. Discharge planning to follow. 4. We will hold anticoagulation for now and consider outpatient endoscopy in the near future. 5. The patient is aware of risk of remaining off anticoagulation namely stroke as well as bleeding risk on anticoagulation without reassessment for bleeding source. Miguel Mason M.D. DR: MELI JOB#: [id number] CC:
--- NOTE | 2018-11-26 03:28 | NUR ---
NURSE NOTES: Patient asleep now, breathing even and unlabored, no s/sx of pain nor any discomfort at this time. Pt went to the bathroom 4x to urinate without difficulty, s/p F/C removal. Pt had an episode of 6 beats of vtach but easily converted back, pt asymptomatic and has a defibrillator, electrolytes within range at this time but will be checked later. Will continue to monitor.
[2018-11-26 04:00] VITALS: BP 138/57
[2018-11-26] MEDS: Sucralfate 1gm tab ORAL SCH ×3 (05:51→17:11)
--- NOTE | 2018-11-26 07:20 | NUR ---
HAND-OFF: Report given to JAN Fairchild. Endorsed plan of care.
--- NOTE | 2018-11-26 07:35 | NUR ---
NURSE NOTES: Received report from Alessia MONTOYA. Pt is awake, alert, oriented x4, sitting up at bedside, having breakfast. On room air with no respiratory distress. Denies any pain or discomfort. IV access on right hand #24G, saline lock, patent/intact. Skin is intact. Per pt report, ambulates at home with a cane, currently on bedrest. Pt instructed to press call light for assistance with restroom needs; pt verbalized understanding. Call light is placed within easy reach, bed in lowest position, two side rails up, brakes engaged, alarm on. Will continue to monitor pt, and follow plan of care per MD orders and protocol.
[2018-11-26 07:52] LABS: ALANINE AMINOTRANSFERASE 13 U/L (12-78); ALBUMIN 2.8 G/DL (3.4-5.0); ALBUMIN/GLOBULIN RATIO 0.6 (1.0-2.7); ALKALINE PHOSPHATASE 80 U/L (46-116); ANION GAP 6 mmol/L (5-15); ASPARTATE AMINO TRANSFERASE 23 U/L (15-37); BILIRUBIN,TOTAL 0.8 MG/DL (0.2-1.0); BLOOD UREA NITROGEN 17 mg/dL (7-18); CALCIUM 8.5 MG/DL (8.5-10.1); CARBON DIOXIDE 29 MMOL/L (21-32); CHLORIDE 102 MMOL/L (98-107); POTASSIUM 4.2 MMOL/L (3.5-5.1); SODIUM 137 MMOL/L (136-145)
[2018-11-26 08:00] VITALS: BP 115/62
[2018-11-26 08:13] LABS: BASOPHILS % (AUTO) 1.6 % (0.0-2.0); EOSINOPHILS % (AUTO) 3.1 % (0.0-3.0); HEMATOCRIT 27.2 % (37.0-47.0); HEMOGLOBIN 8.4 G/DL (12.0-16.0); LYMPHOCYTES % (AUTO) 17.9 % (20.0-45.0); MEAN CORPUSCULAR VOLUME 94 FL (80-99); MONOCYTES % (AUTO) 11.7 % (1.0-10.0); NEUTROPHILS % (AUTO) 65.7 % (45.0-75.0); PLATELET COUNT 149 K/UL (150-450); RED BLOOD COUNT 2.89 M/UL (4.20-5.40); RED CELL DISTRIBUTION WIDTH 17.6 % (11.6-14.8); WHITE BLOOD COUNT 7.9 K/UL (4.8-10.8)
[2018-11-26] MEDS: Losartan 50mg tab ORAL SCH (09:28)
[2018-11-26] MEDS: Digoxin 0.125mg tab ORAL SCH (09:28)
[2018-11-26] MEDS: Docusate 100mg cap ORAL SCH (09:28)
[2018-11-26] MEDS: Carvedilol 6.25mg Tab ORAL SCH (09:29)
[2018-11-26] MEDS: Spironolactone 25mg tab ORAL SCH (09:29)
[2018-11-26 12:00] VITALS: BP 98/52
--- NOTE | 2018-11-26 16:00 | NUR ---
NURSE NOTES: Pt ready to be discharged. Pt's son will fruit picker pt after 1900.
[2018-11-26] MEDS ORDERED: NS 275ml ONE (18:59)
[2018-11-26] MEDS ORDERED: Tubing IV Secondary IV ONE (18:59)
--- NOTE | 2018-11-26 19:10 | NUR ---
NURSE NOTES: Pt was discharged home per MD order. Tele monitor removed and returned. IV access removed. Pt's belonging's list checked and signed with the pt. Discharge instructions given. Pt left facility in stable condition with family, in private vehicle.
--- NOTE | 2018-11-26 22:45 | Discharge Summary ---
DATE OF ADMISSION: 11/20/2018 DATE OF DISCHARGE: 11/27/2018 ADMITTING DIAGNOSES: 1. GI bleed. 2. History of congestive heart failure. 3. History of gastric carcinoma. 4. Anemia. 5. History of pacemaker ICD. DISCHARGE DIAGNOSES: 1. GI bleed. 2. History of congestive heart failure. 3. History of gastric carcinoma. 4. Anemia. 5. History of pacemaker ICD. HOSPITAL COURSE: The patient is admitted with complaints of melena and bright red blood per rectum. She was admitted. Her anticoagulation and antiplatelet therapy was discontinued. She had serial CBCs drawn. She did require transfusion. Her hospital course was complicated by volume overload due to transfusions. She received intravenous Lasix. Endoscopy was offered, but the patient declined. She had no further bleeding episodes. Her hemoglobin remained stable. She was discharged home. She will be followed up as an outpatient. We will discontinue the patient's anticoagulation for the time being, but we will reconsider resumption at a later date if there are no signs or symptoms of bleeding. DIET: Cardiac. ACTIVITY: Ad-berto. Palomo Frankel M.D. DR: BETTY JOB#: [id number] CC:
--- NOTE | 2018-11-26 23:00 | Progress Note ---
DATE: 11/26/2018 SUBJECTIVE: The patient feels better. Her leg swelling has resolved. Her stool is brown. She has no dizziness. Her shortness of breath has decreased. OBJECTIVE: VITAL SIGNS: Blood pressure 115/62, pulse 78, and respiratory rate 18. NECK: Supple. LUNGS: Clear. CARDIAC: Regular. Normal S1 and S2. A 1/6 systolic murmur at apex. ABDOMEN: Soft. EXTREMITIES: No edema. LABORATORY DATA: White count 7.9 and hemoglobin 8.4. Potassium 4.2, BUN 17, and creatinine 1.0. Albumin 2.8. Pro-natriuretic peptide has decreased to 1800 from 4500 on admission. IMPRESSION: 1. Acute on chronic systolic congestive heart failure, now compensated. 2. Cardiac defibrillator with stable function. 3. Gastrointestinal bleeding, resolved. 4. Paroxysmal atrial fibrillation. 5. History of ventricular arrhythmias. 6. History of gastric cancer. PLAN: 1. Change to maintenance dose oral diuretic. 2. Remainder of cardiovascular regimen without change. 3. Outpatient followup. 4. Remain off anticoagulation. 5. The patient wants to defer endoscopy for now. 6. No aspirin or nonsteroidal drugs. 7. EGD prior to resuming rivaroxaban. Miguel Mason M.D. DR: NANDINI JOB#: [id number] CC:
[2018-11-27] MEDS ORDERED: Furosemide 40mg tab ORAL SCH (09:00)
== END 2018-11-26 19:00 | disposition home or self-care (01) | DRG 377 ==
LOC: 2E 11-20 16:31
PROC: 30233N1 Transfusion of Nonautologous Red Blood Cells into Peripheral Vein, Percutaneous Approach (ICD-10-PCS; principal; 2018-11-20)
DX: K92.2 Gastrointestinal hemorrhage, unspecified (principal); I50.23 Acute on chronic systolic (congestive) heart failure; I42.8 Other cardiomyopathies; E44.0 Moderate protein-calorie malnutrition; I48.0 Paroxysmal atrial fibrillation; Z79.01 Long term (current) use of anticoagulants; E11.9 Type 2 diabetes mellitus without complications; E87.6 Hypokalemia; Z85.028 Personal history of other malignant neoplasm of stomach; Z88.6 Allergy status to analgesic agent; Z95.810 Presence of automatic (implantable) cardiac defibrillator; M19.90 Unspecified osteoarthritis, unspecified site; K52.9 Noninfective gastroenteritis and colitis, unspecified; D50.0 Iron deficiency anemia secondary to blood loss (chronic); Z68.22 Body mass index [BMI] 22.0-22.9, adult
CPT/HCPCS: 36415; 80048; 80053; 82248; 82270; 82962; 83036; 83735; 83880; 85007; 85025; 86850; 86900; 86901; 86920; 87081; J8499

== ENCOUNTER 2019-04-23 14:21 | Inpatient (IN) | payer MEDICARE ==
[~2019-04-23] VITALS: Ht 162.6 cm; Wt 59.9 kg
--- NOTE | 2019-04-23 14:36 | NUR ---
ED Nurse Note: Patient brought in to ER by sister by a car from home due to chest pain 7/10 and general weakness. pt aao x4 and unable to ambulate. pt is on chairbound. skin dry but clean and intact no pressure ulcer noted. calm and cooperative. BLE edema noted. pt is tachycardia at 128/min and ERMD at bedside made aware. pt is in gown and on live in housekeeper.
[2019-04-23 14:38] VITALS: BP 133/96
[2019-04-23] MEDS ORDERED: Metoprolol 5mg/5ml Inj IVP SCH ×2 (14:45→18:15)
--- NOTE | 2019-04-23 14:45 | Emergency Room Report ---
History of Present Illness General Chief Complaint: Generalized Weakness Source: Medical Record Present Illness HPI 83-year-old female possible history of hypertension, hyperlipidemia, CHF, pacemaker, presents with chest pressure that comes and goes, no aggravating alleviating factors, patient states the chest pressure on this on the left side of her chest, no radiation, she states she syncopized multiple times over the past month, she states the chest pressure has been ongoing on and off for the past month, she denies any nausea vomiting, abdominal pain. Allergies: Coded Allergies: CODEINE (Verified Allergy, Unknown, 06/17/18) Patient History Past Medical History: see triage record Reviewed Nursing Documentation: PMH: Agreed; PSxH: Agreed Nursing Documentation-PMH Past Medical History: No History, Except For Hx Cardiac Problems: Yes Hx Hypertension: Yes Hx Pacemaker: Yes Hx COPD: Yes Hx Diabetes: Yes Hx Cancer: Yes Hx Gastrointestinal Problems: Yes Hx Neurological Problems: No Hx Seizures: Yes Hx Dizziness: Yes Hx Weakness: Yes Review of Systems Constitutional: Reports: weakness; Denies: chills, fever Eye: Denies: blurred vision, double vision ENT: Denies: throat pain, nasal discharge Respiratory: Reports: shortness of breath; Denies: cough Cardiovascular: Reports: chest pain, palpitations, syncope Gastrointestinal: Denies: abdominal pain, diarrhea, nausea, vomiting Genitourinary: Denies: dysuria, pain Musculoskeletal: Denies: back pain, muscle pain Skin: Denies: rash, lesions Neurological: Denies: headache, focal weakness Hematologic/Lymphatic: Denies: easy bleeding, easy bruising All Other Systems: negative except mentioned in HPI Physical Exam Vital Signs Date Time Temp Pulse Resp B/P (MAP) Pulse Ox O2 Delivery O2 Flow Rate FiO2 04/23/19 14:30 98.1 142 19 118/77 (91) 99 Room Air Sp02 EP Interpretation: reviewed, normal General Appearance: no apparent distress, alert, cachetic Head: normocephalic, atraumatic Eyes: bilateral eye PERRL, bilateral eye EOMI ENT: uvula midline, moist mucus membranes Neck: supple, thyroid normal, supple/symm/no masses Respiratory: lungs clear, no respiratory distress, no retraction, no accessory muscle use Cardiovascular #1: normal peripheral pulses, no edema, no gallop, no murmur, tachycardia Cardiovascular #2: 2+ radial (R), 2+ radial (L) Gastrointestinal: non tender, soft, no guarding, no rebound Musculoskeletal: normal inspection Neurologic: alert, oriented x3 Psychiatric: mood/affect normal Skin: no rash, warm/dry Procedures Critical Care Time Critical Care Time Given the critical condition in which the patient arrived, the patient was immediately assessed by myself and the nurse, and cardiac monitoring initiated due to the potential for rapid decompensation of the patient's clinical condition. During the course of the patient's stay, I spent a considerable amount of time at the bedside performing serial re-evaluations of the patient's hemodynamic and clinical status because of the recognized potential threat to life or limb in this condition. I then had a chance to review not only all of the available current laboratory and radiographic studies obtained today, but I also reviewed old records available to me at the time. Additionally, any ancillary information available including dispensing audiologist records were reviewed. Sequential vital signs were obtained. Patient with supraventricular tachycardia, requiring metoprolol to control, patient clinically improved, feels better Critical Care time of 30 minutes was performed exclusive of billable procedures. Medical Decision Making Diagnostic Impression: Primary Impression: ACS (acute coronary syndrome) Additional Impressions: SOB (shortness of breath) Lactic acid acidosis Elevated troponin SVT (supraventricular tachycardia) ER Course 81-year-old female multiple comorbidities presents with shortness of breath, chest pain, patient found to have a supraventricular tachycardia, metoprolol 5 mg IV was given, patient is in no acute distress however she appears weak and cachectic, vasoactive medications were given to help stabilize her heart rate, patient with possible CHF versus ACS Metoprolol pushed, supraventricular tachycardia ended, reevaluation at 3:22 PM, patient feels better Dr. Mason contacted at 4:01pm Patient admitted to covering physician Kin at 4:53pm Patient with lactic acidosis, no overt signs of heart failure Troponin most likely secondary to demand ischemia patient tachycardic initially to 150s, asa given Cefepime and vanco started, will start gentle fluid resuscitation Patient to be admitted for syncope, chest pain, shortness of breath Laboratory Tests Test 04/23/19 15:15 04/23/19 15:26 White Blood Count 4.6 K/UL (4.8-10.8) L Red Blood Count 4.12 M/UL (4.20-5.40) L Hemoglobin 12.7 G/DL (12.0-16.0) Hematocrit 42.0 % (37.0-47.0) Mean Corpuscular Volume 102 FL (80-99) H Mean Corpuscular Hemoglobin 30.9 PG (27.0-31.0) Mean Corpuscular Hemoglobin Concent 30.3 G/DL (32.0-36.0) L Red Cell Distribution Width 15.9 % (11.6-14.8) H Platelet Count 99 K/UL (150-450) L Mean Platelet Volume 11.0 FL (6.5-10.1) H Neutrophils (%) (Auto) % (45.0-75.0) Lymphocytes (%) (Auto) % (20.0-45.0) Monocytes (%) (Auto) % (1.0-10.0) Eosinophils (%) (Auto) % (0.0-3.0) Basophils (%) (Auto) % (0.0-2.0) Differential Total Cells Counted 100 Neutrophils % (Manual) 64 % (45-75) Lymphocytes % (Manual) 22 % (20-45) Monocytes % (Manual) 12 % (1-10) H Eosinophils % (Manual) 0 % (0-3) Basophils % (Manual) 2 % (0-2) Band Neutrophils 0 % (0-8) Platelet Estimate Decreased L Platelet Morphology Normal Red Blood Cell Morphology Normal Prothrombin Time 20.0 SEC (9.30-11.50) H Prothrombin Time INR 1.9 (0.9-1.1) H PTT 27 SEC (23-33) Sodium Level 141 MMOL/L (136-145) Potassium Level 4.8 MMOL/L (3.5-5.1) Chloride Level 106 MMOL/L (98-107) Carbon Dioxide Level 17 MMOL/L (21-32) L Anion Gap 18 mmol/L (5-15) H Blood Urea Nitrogen 23 mg/dL (7-18) H Creatinine 1.5 MG/DL (0.55-1.30) H Estimate Glomerular Filtration Rate mL/min (>60) Glucose Level 93 MG/DL (74-106) Lactic Acid Level 6.50 mmol/L (0.4-2.0) H Calcium Level 9.6 MG/DL (8.5-10.1) Total Bilirubin 5.4 MG/DL (0.2-1.0) H Direct Bilirubin 1.5 MG/DL (0.0-0.3) H Aspartate Amino Transferase (AST) 38 U/L (15-37) H Alanine Aminotransferase (ALT) 17 U/L (12-78) Alkaline Phosphatase 105 U/L (46-116) Total Creatine Kinase 116 U/L (26-308) Creatine Kinase MB 2.4 NG/ML (0.0-3.6) Creatine Kinase MB Relative Index 2.0 Troponin I 0.087 ng/mL (0.000-0.056) Pro-B-Type Natriuretic Peptide 63075 pg/mL (0-125) H Total Protein 9.4 G/DL (6.4-8.2) H Albumin 3.6 G/DL (3.4-5.0) Globulin 5.8 g/dL Albumin/Globulin Ratio 0.6 (1.0-2.7) L Lipase 59 U/L (73-393) L Venous Blood pH 7.345 Venous Blood Partial Pressure CO2 27.1 Venous Blood Partial Pressure O2 < 45.3 Venous Blood HCO3 14.5 Venous Blood Total Carbon Dioxide 27.1 Venous Bld O2 Saturation (Measured) Pending Venous Blood Oxygen Saturation 26.7 Venous Blood Base Excess -9.9 Methemoglobin 1.2 Sodium (Blood Gas) Pending EKG Diagnostic Results EKG Time: 14:37 EP Interpretation: Supraventricular tachycardia, rate 155, QTc 526, no discernible P waves, Rate: tachycardiac ST Segments: no acute changes ASA given to the pt in ED: Yes Rhythm Strip Diag. Results Rhythm Strip Time: 15:09 EP Interpretation: yes Rate: 151 Rhythm: other - tachycardic, ectopy present, PVC present, Last Vital Signs Date Time Temp Pulse Resp B/P (MAP) Pulse Ox O2 Delivery O2 Flow Rate FiO2 04/23/19 14:38 128 18 Room Air 04/23/19 14:38 98.2 133/96 92 Disposition: ADMITTED INPATIENT Condition: Stable Keaton Stauffer M.D. Apr 23, 2019 14:44
--- NOTE | 2019-04-23 14:50 | NUR ---
ED Nurse Note: x-ray at bedside.
--- NOTE | 2019-04-23 15:23 | NUR ---
ED Nurse Note: HR went down to 90/min. ERMd made aware.
--- NOTE | 2019-04-23 15:27 | NUR ---
ED Nurse Note: RT contacted for VBS.
--- NOTE | 2019-04-23 15:34 | NUR ---
ED Nurse Note: VBS drawn by nurse and handed to RT.
[2019-04-23 15:35] LABS: INR 1.9 (0.9-1.1)
[2019-04-23 15:37] LABS: ANION GAP 18 mmol/L (5-15); BLOOD UREA NITROGEN 23 mg/dL (7-18); CALCIUM 9.6 MG/DL (8.5-10.1); CARBON DIOXIDE 17 MMOL/L (21-32); CHLORIDE 106 MMOL/L (98-107); CREATININE 1.5 MG/DL (0.55-1.30); POTASSIUM 4.8 MMOL/L (3.5-5.1); SODIUM 141 MMOL/L (136-145)
--- NOTE | 2019-04-23 15:45 | NUR ---
ED Nurse Note: called cardiac technologist for reminder. no answer.
[2019-04-23 15:46] LABS: HEMOGLOBIN 12.7 G/DL (12.0-16.0); MEAN CORPUSCULAR VOLUME 102 FL (80-99); PLATELET COUNT 99 K/UL (150-450); RED BLOOD COUNT 4.12 M/UL (4.20-5.40); RED CELL DISTRIBUTION WIDTH 15.9 % (11.6-14.8); WHITE BLOOD COUNT 4.6 K/UL (4.8-10.8)
[2019-04-23 15:50] LABS: ALANINE AMINOTRANSFERASE 17 U/L (12-78); ALBUMIN 3.6 G/DL (3.4-5.0); ALBUMIN/GLOBULIN RATIO 0.6 (1.0-2.7); ALKALINE PHOSPHATASE 105 U/L (46-116); ASPARTATE AMINO TRANSFERASE 38 U/L (15-37); BILIRUBIN,TOTAL 5.4 MG/DL (0.2-1.0); CKMB 2.4 NG/ML (0.0-3.6); CREATINE KINASE 116 U/L (26-308)
--- NOTE | 2019-04-23 15:53 | NUR ---
ED Nurse Note: pt unable to provide urine sample. STEPHANIED made aware.
[2019-04-23 15:54] LABS: BILIRUBIN,DIRECT 1.5 MG/DL (0.0-0.3)
--- NOTE | 2019-04-23 16:04 | NUR ---
ED Nurse Note: called technical services specialist for reminder. no answer.
--- NOTE | 2019-04-23 16:25 | NUR ---
ED Nurse Note: Belonging list done and signed by patient. pt refused to open and go over red grocery shopping bag as stating "My sister is supposed to come back tonight and pick it up. no need to do this." pt was informed that we are not responsible for missing items from the red bag since she did not allow us to open and pt agreed with it as stating "There is nothing valuable there."
--- NOTE | 2019-04-23 16:31 | NUR ---
ED Nurse Note: sow farm barn technician took pt down for CT in stable condition.
--- NOTE | 2019-04-23 16:50 | NUR ---
ED Nurse Note: pt came back from CT in stable condition.
[2019-04-23] MEDS ORDERED: Cefepime HCl 2 GM in D5W 55 ML IVPB ONE (17:00)
[2019-04-23] MEDS ORDERED: Vancomycin 1 GM in NS 275 ML IVPB ONE (17:00)
[2019-04-23] MEDS ORDERED: UNOBMED (17:11)
--- NOTE | 2019-04-23 17:43 | NUR ---
ED Nurse Note: report given to JAN Marshall
[2019-04-23 17:44] LABS: APPEARANCE,URINE CLEAR; BILIRUBIN, URINE NEGATIVE (NEGATIVE); GLUCOSE, URINE (UA) NEGATIVE (NEGATIVE); KETONES,URINE NEGATIVE (NEGATIVE); LEUKOCYTE ESTERASE ,URINE 1+ (NEGATIVE); NITRITE,URINE NEGATIVE (NEGATIVE); PH,URINE 5 (4.5-8.0); PROTEIN,URINE 3+ (NEGATIVE); UROBILINOGEN,URINE 1 MG/DL (0.0-1.0)
--- NOTE | 2019-04-23 17:44 | NUR ---
NURSE NOTES: Received report from Oracio Haro RN.
[2019-04-23 17:47] LABS: COLOR,URINE YELLOW
--- NOTE | 2019-04-23 17:55 | NUR ---
ED Nurse Note: pt left unit with 1 sql tech and 1 RN in stable condition.
--- NOTE | 2019-04-23 18:15 | Cardiology Progress Note ---
Assessment/Plan Assessment/Plan The patient is seen and examined, full consult note will be dictated. Objective Last 24 Hour Vital Signs Date Time Temp Pulse Resp B/P (MAP) Pulse Ox O2 Delivery O2 Flow Rate FiO2 04/23/19 14:53 148 04/23/19 14:38 128 18 Room Air 04/23/19 14:38 98.2 128 18 133/96 92 Room Air 04/23/19 14:30 98.1 142 19 118/77 (91) 99 Room Air Laboratory Tests Test 04/23/19 15:15 04/23/19 15:26 04/23/19 17:00 04/23/19 17:15 White Blood Count 4.6 K/UL (4.8-10.8) L Red Blood Count 4.12 M/UL (4.20-5.40) L Hemoglobin 12.7 G/DL (12.0-16.0) Hematocrit 42.0 % (37.0-47.0) Mean Corpuscular Volume 102 FL (80-99) H Mean Corpuscular Hemoglobin 30.9 PG (27.0-31.0) Mean Corpuscular Hemoglobin Concent 30.3 G/DL (32.0-36.0) L Red Cell Distribution Width 15.9 % (11.6-14.8) H Platelet Count 99 K/UL (150-450) L Mean Platelet Volume 11.0 FL (6.5-10.1) H Neutrophils (%) (Auto) % (45.0-75.0) Lymphocytes (%) (Auto) % (20.0-45.0) Monocytes (%) (Auto) % (1.0-10.0) Eosinophils (%) (Auto) % (0.0-3.0) Basophils (%) (Auto) % (0.0-2.0) Differential Total Cells Counted 100 Neutrophils % (Manual) 64 % (45-75) Lymphocytes % (Manual) 22 % (20-45) Monocytes % (Manual) 12 % (1-10) H Eosinophils % (Manual) 0 % (0-3) Basophils % (Manual) 2 % (0-2) Band Neutrophils 0 % (0-8) Platelet Estimate Decreased L Platelet Morphology Normal Red Blood Cell Morphology Normal Prothrombin Time 20.0 SEC (9.30-11.50) H Prothromb Time International Ratio 1.9 (0.9-1.1) H Activated Partial Thromboplast Time 27 SEC (23-33) Sodium Level 141 MMOL/L (136-145) Potassium Level 4.8 MMOL/L (3.5-5.1) Chloride Level 106 MMOL/L (98-107) Carbon Dioxide Level 17 MMOL/L (21-32) L Anion Gap 18 mmol/L (5-15) H Blood Urea Nitrogen 23 mg/dL (7-18) H Creatinine 1.5 MG/DL (0.55-1.30) H Estimat Glomerular Filtration Rate mL/min (>60) Glucose Level 93 MG/DL (74-106) Lactic Acid Level 6.50 mmol/L (0.4-2.0) H Pending Calcium Level 9.6 MG/DL (8.5-10.1) Total Bilirubin 5.4 MG/DL (0.2-1.0) H Direct Bilirubin 1.5 MG/DL (0.0-0.3) H Aspartate Amino Transf (AST/SGOT) 38 U/L (15-37) H Alanine Aminotransferase (ALT/SGPT) 17 U/L (12-78) Alkaline Phosphatase 105 U/L (46-116) Total Creatine Kinase 116 U/L (26-308) Creatine Kinase MB 2.4 NG/ML (0.0-3.6) Creatine Kinase MB Relative Index 2.0 Troponin I 0.087 ng/mL (0.000-0.056) Pro-B-Type Natriuretic Peptide 11612 pg/mL (0-125) H Total Protein 9.4 G/DL (6.4-8.2) H Albumin 3.6 G/DL (3.4-5.0) Globulin 5.8 g/dL Albumin/Globulin Ratio 0.6 (1.0-2.7) L Lipase 59 U/L (73-393) L Venous Blood pH 7.345 Venous Blood Partial Pressure CO2 27.1 Venous Blood Partial Pressure O2 < 45.3 Venous Blood HCO3 14.5 Venous Blood Total Carbon Dioxide 27.1 Venous Bld O2 Saturation (Measured) Pending Venous Blood Oxygen Saturation 26.7 Venous Blood Base Excess -9.9 Methemoglobin 1.2 Sodium (Blood Gas) Pending Urine Color Yellow Urine Appearance Clear Urine pH 5 (4.5-8.0) Urine Specific Stone 1.010 (1.005-1.035) Urine Protein 3+ (NEGATIVE) H Urine Glucose (UA) Negative (NEGATIVE) Urine Ketones Negative (NEGATIVE) Urine Blood 2+ (NEGATIVE) H Urine Nitrite Negative (NEGATIVE) Urine Bilirubin Negative (NEGATIVE) Urine Urobilinogen 1 MG/DL (0.0-1.0) H Urine Leukocyte Esterase 1+ (NEGATIVE) H Urine RBC 2-4 /HPF (0 - 2) H Urine WBC 0-2 /HPF (0 - 2) Urine Squamous Epithelial Cells Few /LPF (NONE/OCC) Urine Bacteria Few /HPF (NONE) Carroll Fernandez MD Apr 23, 2019 18:15
[2019-04-23] MEDS ORDERED: Digoxin 0.5mg/2ml Inj IVP SCH ×2 (18:33→18:42)
--- NOTE | 2019-04-23 18:44 | NUR ---
NURSE NOTES: Received patient from [facility] via [facility]. Patient verbally responsive but delayed response. O2 saturation 85%, oxygen 4L via NC applied. sterile process tech applied, shows afib HR 144. Dr Fernandez at bedside, ordered metoprolol 5mg IVP x3. Medication given by Dr Fernandez, HR is now at 88. Patient is more responsive at this time. Addendum: 04/23/19 at 191 by Joanna Coker RN Metoprolol 5mg IVP given by Dr Fernandez 1st dose at 1826, 2nd dose at 1831, and third dose at 1836.
--- NOTE | 2019-04-23 19:13 | NUR ---
NURSE NOTES: No open wounds noted. Patient on O2 4L via NC, saturating 97%. RT at bedside trying for stat ABG. Per ER nurse, patient refused belongings to be checked. IV on right hand 22g intact and patent. Dr Fernandez gave admitting orders; entered, noted and carried out. Addendum: 04/23/19 at 1919 by Joanna Coker RN BP 148/87 at this time
--- NOTE | 2019-04-23 19:28 | NUR ---
HAND-OFF: Report given to JAN Osborne. Safety precautions in place at this time. Bed locked, lowered,and alarmed, side rails up x3, and call light left within reach.
--- NOTE | 2019-04-23 19:29 | NUR ---
NURSE NOTES: Received bed side report from JAN Marshall.Patient stable,A&Ox4,A-Fib on cardiac nurse specialist, aware,4 L/min N/C Sat O2 92-98%,BS active in all quadrants,IV asymptomatic,intact on R hand 22G TKO,bed secured,call light within a reach,family at bedside,will continue to monitor and follow POC.
[2019-04-23 20:00] VITALS: BP 148/87
[2019-04-23] MEDS ORDERED: Vancomycin 500mg/D5W 110ml IVPB ONE ×2 (21:00)
--- NOTE | 2019-04-23 21:30 | Consultation ---
DATE OF CONSULTATION: 04/23/2019 CARDIOLOGY CONSULTATION CONSULTING PHYSICIAN: Carroll Fernandez M.D. REFERRING PHYSICIAN: Dr. Frankel, covering for Dr. Miguel Mason. REASON FOR CONSULTATION: Management of atrial fibrillation with rapid ventricular response. HISTORY OF PRESENT ILLNESS: The patient is a very unfortunate 83-year-old female who presents to the hospital with chest pressure over the left side, associated with palpitation, feeling fatigue and tired, and she claims that she had a few episodes of syncope in the past month. At the time of arrival to the hospital, the patient had blood pressure of 118/77 mmHg, heart rate of 142. 12-lead electrocardiogram verified atrial flutter with 2 to 1 AV block, frequent premature ventricular contractions. Laboratory finding was significant for elevation of the troponin I level to 0.087 as well as elevation of ProBNP to 30,022 from a level of 1807 obtained from November 2018. Chest x-ray revealed cardiomegaly with presence of AICD shocking lead, right atrial lead, and possible left pleural effusion versus left lower lung infiltrate. The patient was admitted to [facility] for further evaluation and management. Cardiology consultation was made at request of Dr. Frankel for evaluation of atrial fibrillation with rapid ventricular response. PAST MEDICAL HISTORY: 1. History of gastric cancer. 2. Iron deficiency anemia, not a candidate for anticoagulation therapy due to gastrointestinal bleed. 3. Diabetes mellitus. 4. Hyperlipidemia. 5. Nonischemic cardiomyopathy with LVEF approximately 30 to 35%. 6. History of paroxysmal ventricular tachycardia. 7. History of paroxysmal atrial fibrillation. 8. History of osteoarthritis. 9. Status post AICD pacemaker implantation. ALLERGIES: Codeine. SOCIAL HISTORY: No history of tobacco, alcohol, or illicit drug use. FAMILY HISTORY: No premature coronary artery disease in first-degree relatives according to the patient's records. REVIEW OF SYSTEMS: The patient is currently lethargic and is not capable of providing any history. PAST SURGICAL HISTORY: AICD implantation, most likely laparotomy, questionable partial gastrectomy. LIST OF MEDICATIONS: Including digoxin 125 microgram by mouth daily, Colace 100 mg p.o. daily, Lasix 40 mg p.o. daily, losartan 100 mg p.o. daily, pantoprazole 40 mg p.o. daily, Aldactone 25 mg p.o. daily, and Carafate 1 g p.o. daily. PHYSICAL EXAMINATION: VITAL SIGNS: Blood pressure 118/77, pulse of 142, respiration 19, temperature 98.1 degrees Fahrenheit, and O2 saturation 99% on room air. GENERAL: The patient is a very pleasant 83-year-old lady, in [id number] respiratory distress, lethargic. HEENT: Atraumatic and normocephalic. Anicteric. Pupils are equal, round, and reactive to light and accommodation. Conjunctival pallor is present. NECK: JVP elevated about 15 centimeter. No carotid bruit. Carotid upstrokes 2+ bilaterally. CARDIOVASCULAR: Normal S1 and S2. Tachycardic. Irregularly irregular rhythm. Cannot appreciate any murmurs, gallops, or rubs. LUNGS: Clear to auscultation bilaterally. ABDOMEN: Soft, nontender, and nondistended. No hepatosplenomegaly. Positive bowel sounds. Scar of surgery in the left midline vertical line, parallel to midline. EXTREMITIES: No evidence of edema, clubbing, or cyanosis. LABORATORY FINDINGS: WBC was 4.6, hemoglobin 12.7, hematocrit of 42.0, and platelet count is 99,000. Sodium 141, potassium is 4.8, chloride 106, bicarbonate 17, BUN of 23, creatinine 1.5, lactic acid 6.5, and calcium 9.6. Troponin I was 0.087. ProBNP was 30,022. INR was 1.9. ABG is significant for metabolic acidosis ____. Chest x-ray, cardiomegaly with mild pulmonary vascular congestion and not quite different from the x-ray obtained in the past in this facility. ASSESSMENT AND PLAN: The patient is a very unfortunate 83-year-old female, seen in cardiology consultation. 1. Paroxysmal atrial fibrillation, currently atrial fibrillation with rapid ventricular response. I personally gave intravenous 5 mg increments x3, which controlled ventricular response ____ atrial fibrillation to around 85. We will place the patient on carvedilol 3.125 mg twice daily, digoxin 125 microgram intravenous push x1 will be given. 2. History of cardiomyopathy with left ventricular ejection fraction approximately 35%. 3. Status post AICD pacemaker implantation. 4. History of nonsustained ventricular tachycardia. We will measure magnesium level stat and treat accordingly. 5. History of gastric cancer, questionable surgical removal, questionable staging. 6. History of anemia, iron deficiency, most likely due to gastrointestinal bleed. Anticoagulation was relatively contraindicated in the previous admission. I would like to thank Dr. Frankel for allowing me to participate in care of this patient. Carroll Fernandez M.D. DR: JACQUIE JOB#: [id number] CC:
[2019-04-23] MEDS: Piperacillin/Tazobactam 3.375 GM in NS 110 ML IVPB SCH (22:54)
--- NOTE | 2019-04-23 23:37 | NUR ---
NURSE NOTES: Based on ABG result,received an order from 10/13 NS with 1 amp bicarbonate @ 60ml/hr,charge nurse aware.Will continue to monitor
[2019-04-24] VITALS: BP 151/89
[2019-04-24] MEDS: Sodium Bicarbonate 50 ML in 1/2 NS 1000ml 1,000 ML IV SCH ×2 (00:43→13:00)
[2019-04-24 04:00] VITALS: BP 144/76
--- NOTE | 2019-04-24 04:00 | NUR ---
NURSE NOTES: IV on R hand infiltrated,tried to inserted new IV unsuccessful,pt has no veins,will endorse day shift nurse to get order for PICC line,charge nurse aware.
[2019-04-24] MEDS: Piperacillin/Tazobactam 3.375 GM in NS 110 ML IVPB SCH ×3 (06:00→21:59)
--- NOTE | 2019-04-24 06:15 | NUR ---
NURSE NOTES: checked pt and aware that no IV access,he will make an order for emergency PICC line insertion,charge nurse aware
[2019-04-24] MEDS ORDERED: Lidocaine 1% Plain 30 ml INJ PRN (06:45)
[2019-04-24] MEDS ORDERED: Heparin1,000 units/500ml Premix(Conc:2 units/ml) IV PRN (06:45)
--- NOTE | 2019-04-24 07:10 | NUR ---
HAND-OFF: Report given to JAN Marshall.Patient stable,able to sign consent.
--- NOTE | 2019-04-24 07:29 | NUR ---
NURSE NOTES: Received report from JAN Osborne. Observed patient in bed, awake,alert, able to make needs known. On O2 4L via NC, saturating 96%. Patient is NPO at this time per MD order. No IV access at this time, Dr Frankel aware; patient consented to PICC line insertion today, consent form signed. trestle mechanic shows afib at this time. Safety precautions in place, bed in lowest position, side rails up x3, and call light within reach. Instructed patient to use call light for assistance, verbalized understanding. Will continue with plan of care and monitor patient.
[2019-04-24 08:00] VITALS: BP 126/75
--- NOTE | 2019-04-24 08:30 | History and Physical Report ---
DATE OF ADMISSION: 04/23/2019 CHIEF COMPLAINT: Shortness of breath and abdominal pain. HISTORY OF PRESENT ILLNESS: The patient is an 83-year-old female, well known to me. She has a history of congestive heart failure and atrial fibrillation. She has a history of an ICD. She also has a prior history of a gastric cancer, status post resection. She presented with complaints of abdominal pain and shortness of breath. According to the patient, she was well until one to two weeks prior to admission when she began to develop progressive shortness of breath. She had progressively worsening abdominal pain. There are no reports of any fevers or chills. No melena. No bright red blood per rectum. On evaluation in the emergency room, the patient was noted to have an elevated INR of 1.9. Lactic acid level was 6.5. BUN was 23 and creatinine was 1.5. Bicarb was only 17. Total bilirubin was 5.4 with a direct bilirubin of 1.5. Natriuretic peptide level was 30,000. ABG showed severe metabolic acidosis. The patient is now admitted to the step-down unit for further evaluation and care. PAST MEDICAL HISTORY: As above. PAST SURGICAL HISTORY: Includes partial gastrectomy. CURRENT MEDICATIONS: Reconciled and reviewed. ALLERGIES: Include codeine. FAMILY HISTORY: Noncontributory. SOCIAL HISTORY: There is no known history of tobacco, ethanol, or drugs. REVIEW OF SYSTEMS: GENERAL: No fever or chills. HEENT: No headaches or visual changes. CARDIOPULMONARY: No chest pain. Positive shortness of breath. No palpitations. GASTROINTESTINAL: Positive abdominal pain. No melena. No bright red blood per rectum. GENITOURINARY: No urgency or frequency. MUSCULOSKELETAL: No joint pain or swelling. NEUROLOGIC: No evidence of seizures. PHYSICAL EXAMINATION: VITAL SIGNS: Temperature 98 degrees, pulse 75, respirations 22, blood pressure 144/76. GENERAL: The patient is a chronically ill-appearing female, in moderate amount of distress grossly due to pain. NECK: Supple. HEART: Irregularly irregular. LUNGS: Clear. ABDOMEN: Soft. Diffusely tender. EXTREMITIES: No clubbing, cyanosis, or edema. LABORATORY DATA: Labs showed white count of 4, hemoglobin 12, hematocrit 42, platelet count of 99. ABG showed a pH of 7.31, pCO2 of 20, pO2 91, bicarb of 10, O2 saturation 95%. INR was 1.9. Lactic acid was 7.5. ASSESSMENT: This is an 83-year-old female with a history of congestive heart failure, hypertension, atrial fibrillation, gastric carcinoma, admitted with complaints of shortness of breath and abdominal pain secondary to CHF, etiology of the abdominal pain is unclear, gastric cancer would be concerned about recurrence. PLAN: IV fluids with sodium bicarb. Surgical, Cardiology, Pulmonary, and Renal consultations to be obtained. Stat CAT scan of the abdomen has been ordered. The patient's status is currently critical and guarded. Plan of care has been discussed with the patient at the bedside. Palomo Frankel M.D. DR: BASIL JOB#: [id number] CC:
--- NOTE | 2019-04-24 09:00 | NUR ---
NURSE NOTES: Dr Frankel informed and made aware of ABG results; no further orders at this time.
--- NOTE | 2019-04-24 09:45 | NUR ---
NURSE NOTES: Called radiology for f/u with CT abdomen; will be up after ER. Addendum: 04/24/19 at 1104 by Joanna Coker RN wrong time; radiology was called at 1045 for follow up.
--- NOTE | 2019-04-24 09:56 | NUR ---
NURSE NOTES: Oral contrast given to patient, able to tolerate about 75ml, refused the rest of the contrast. Dr Frankel informed, ordered to proceed with CT. Geo from CT informed.
--- NOTE | 2019-04-24 11:29 | NUR ---
NURSE NOTES: Transported patient to and from the radiology department for CT of the abdomen; patient in stable condition.
[2019-04-24] MEDS ORDERED: Lidocaine 1% 10mg/ml/EPI 0.01mg/ml 20ml INJ SCH (11:46)
[2019-04-24 12:00] VITALS: BP 124/74
--- NOTE | 2019-04-24 12:37 | NUR ---
NURSE NOTES: Dr Lindquist at bedside with rehab technician for central line placement verification; OK to use central line.
--- NOTE | 2019-04-24 12:57 | Consultation ---
History of Present Illness General Date patient seen: Apr 24, 2019 Reason for Hospitalization: Generalized Weakness Present Illness HPI 83 year old female with multiple medical comorbidities presented with abdominal pain and sob. has been feeling weak for a few days. on admission noted to be acidosis. no n/v/f/c. labs as below. surgery called to evaluate for abdominal pain. states cramping 4-5/10 pain for a few days. feels constipated. is dehydrated. patient seen, chart reviewed, patient examined. Allergies: Coded Allergies: CODEINE (Verified Allergy, Unknown, 06/17/18) Medication History Scheduled Digoxin* (Digoxin*), 125 MCG ORAL DAILY, (Reported) Docusate Sodium* (Docusate Sodium*), 100 MG ORAL DAILY, (Reported) Furosemide* (Lasix*), 40 MG ORAL DAILY, (Reported) Losartan Potassium (Losartan Potassium), 100 MG ORAL DAILY, (Reported) Pantoprazole* (Pantoprazole*), 40 MG ORAL DAILY, (Reported) Spironolactone (Aldactone), 25 MG ORAL DAILY Sucralfate* (Carafate*), 1 GM ORAL DAILY, (Reported) Miscellaneous Medications Unable to Obtain Medications (Unable To Obtain Meds), (Reported) Patient History History Provided By: Patient, Medical Record, PMD Healthcare decision maker patient Resuscitation status Full Code Advanced Directive on File No Past Medical/Surgical History Past Medical/Surgical History: (1) Shoulder strain (2) Fall (3) [id number] (4) Enteritis (5) Defibrillator activation (6) ACS (acute coronary syndrome) (7) ICD (implantable cardiac defibrillator) discharge (8) CHF exacerbation (9) CHF exacerbation (10) Paroxysmal a-fib (11) Anemia (12) A-fib (13) Dyspepsia (14) Enteritis (15) Gastric cancer (16) Chest pain (17) GI bleed (18) SOB (shortness of breath) (19) SVT (supraventricular tachycardia) (20) Lactic acid acidosis (21) ACS (acute coronary syndrome) (22) Elevated troponin (23) Chest pain (24) Syncope Review of Systems Review of Symptoms General ROS: no weight loss or fever Psychological ROS: no depression or mood changes, no memory loss Ophthalmic ROS: no visual changes or eye irritation ENT ROS: no nasal congestion, hearing loss, dizziness Allergy and Immunology ROS: no allergic symptoms or urticaria Hematological and Lymphatic ROS: no swollen glands, unusual bleeding or bruising Endocrine ROS: no polyuria, polydipsia, weight changes, temperature intolerance Respiratory ROS: no cough, shortness of breath, or wheezing Cardiovascular ROS: no chest pain or dyspnea on exertion Gastrointestinal ROS: abdominal pain, no bright red blood in stool. Musculoskeletal ROS: no myalgias or arthralgias Neurological ROS: no TIA or stroke symptoms Dermatological ROS: no new or changing skin lesions, rashes or pruritis Physical Exam Physical Exam General appearance: alert, cooperative, no distress, appears stated age Head: Normocephalic, without obvious abnormality, atraumatic Eyes: conjunctivae/corneas clear. PERRL, EOM's intact. Fundi benign Throat: Lips, mucosa, and tongue normal. Teeth and gums normal Neck: supple, symmetrical, trachea midline, no adenopathy, thyroid: not enlarged, symmetric, no tenderness/mass/nodules, no carotid bruit and no JVD Lungs: clear to auscultation bilaterally Heart: regular rate and rhythm, S1, S2 normal, no murmur, click, rub or gallop Abdomen: soft, non-tender. Bowel sounds normal. No masses, no organomegaly Extremities: extremities normal, atraumatic, no cyanosis or edema Pulses: 2+ and symmetric Skin: Skin color, texture, turgor normal. No rashes or lesions Neurologic: Grossly normal Last 24 Hour Vital Signs Date Time Temp Pulse Resp B/P (MAP) Pulse Ox O2 Delivery O2 Flow Rate FiO2 04/24/19 12:00 2.0 04/24/19 12:00 Nasal Cannula 2.0 04/24/19 12:00 97.2 76 22 124/74 (91) 100 04/24/19 09:31 74 126/75 04/24/19 08:00 Nasal Cannula 4.0 04/24/19 08:00 4.0 04/24/19 08:00 96.8 74 24 126/75 (92) 100 04/24/19 07:42 74 04/24/19 07:29 99 Nasal Cannula 4.0 36 04/24/19 04:00 Nasal Cannula 4.0 04/24/19 04:00 4.0 04/24/19 04:00 98.2 75 22 144/76 (98) 100 04/24/19 03:45 73 04/24/19 00:00 96.8 73 20 151/89 (109) 95 04/24/19 00:00 Nasal Cannula 4.0 04/23/19 23:36 69 04/23/19 20:38 85 148/87 04/23/19 20:00 96.3 85 20 148/87 (107) 98 04/23/19 20:00 Nasal Cannula 4.0 04/23/19 20:00 4.0 04/23/19 19:56 Nasal Cannula 4.0 04/23/19 19:15 85 04/23/19 19:13 93 04/23/19 18:50 148 155/114 04/23/19 18:30 130 04/23/19 17:55 98.3 79 16 156/86 95 Room Air 04/23/19 14:53 148 04/23/19 14:38 128 18 Room Air 04/23/19 14:38 98.2 128 18 133/96 92 Room Air 04/23/19 14:30 98.1 142 19 118/77 (91) 99 Room Air Intake and Output 04/23/19 04/24/19 18:59 06:59 Intake Total 555 ml 365.0 ml Output Total 250 ml Balance 555 ml 115.0 ml Intake Oral 0 ml 120 ml IV Total 555 ml 245.0 ml Output Urine Total 250 ml Laboratory Tests Test 04/23/19 15:15 04/23/19 15:26 04/23/19 17:00 04/23/19 17:15 White Blood Count 4.6 K/UL (4.8-10.8) L Red Blood Count 4.12 M/UL (4.20-5.40) L Hemoglobin 12.7 G/DL (12.0-16.0) Hematocrit 42.0 % (37.0-47.0) Mean Corpuscular Volume 102 FL (80-99) H Mean Corpuscular Hemoglobin 30.9 PG (27.0-31.0) Mean Corpuscular Hemoglobin Concent 30.3 G/DL (32.0-36.0) L Red Cell Distribution Width 15.9 % (11.6-14.8) H Platelet Count 99 K/UL (150-450) L Mean Platelet Volume 11.0 FL (6.5-10.1) H Neutrophils (%) (Auto) % (45.0-75.0) Lymphocytes (%) (Auto) % (20.0-45.0) Monocytes (%) (Auto) % (1.0-10.0) Eosinophils (%) (Auto) % (0.0-3.0) Basophils (%) (Auto) % (0.0-2.0) Differential Total Cells Counted 100 Neutrophils % (Manual) 64 % (45-75) Lymphocytes % (Manual) 22 % (20-45) Monocytes % (Manual) 12 % (1-10) H Eosinophils % (Manual) 0 % (0-3) Basophils % (Manual) 2 % (0-2) Band Neutrophils 0 % (0-8) Platelet Estimate Decreased L Platelet Morphology Normal Red Blood Cell Morphology Normal Prothrombin Time 20.0 SEC (9.30-11.50) H Prothromb Time International Ratio 1.9 (0.9-1.1) H Activated Partial Thromboplast Time 27 SEC (23-33) Sodium Level 141 MMOL/L (136-145) Potassium Level 4.8 MMOL/L (3.5-5.1) Chloride Level 106 MMOL/L (98-107) Carbon Dioxide Level 17 MMOL/L (21-32) L Anion Gap 18 mmol/L (5-15) H Blood Urea Nitrogen 23 mg/dL (7-18) H Creatinine 1.5 MG/DL (0.55-1.30) H Estimat Glomerular Filtration Rate mL/min (>60) Glucose Level 93 MG/DL (74-106) Lactic Acid Level 6.50 mmol/L (0.4-2.0) H 7.50 mmol/L (0.66-2.22) H Calcium Level 9.6 MG/DL (8.5-10.1) Magnesium Level 1.8 MG/DL (1.8-2.4) Total Bilirubin 5.4 MG/DL (0.2-1.0) H Direct Bilirubin 1.5 MG/DL (0.0-0.3) H Aspartate Amino Transf (AST/SGOT) 38 U/L (15-37) H Alanine Aminotransferase (ALT/SGPT) 17 U/L (12-78) Alkaline Phosphatase 105 U/L (46-116) Total Creatine Kinase 116 U/L (26-308) Creatine Kinase MB 2.4 NG/ML (0.0-3.6) Creatine Kinase MB Relative Index 2.0 Troponin I 0.087 ng/mL (0.000-0.056) Pro-B-Type Natriuretic Peptide 54839 pg/mL (0-125) H Total Protein 9.4 G/DL (6.4-8.2) H Albumin 3.6 G/DL (3.4-5.0) Globulin 5.8 g/dL Albumin/Globulin Ratio 0.6 (1.0-2.7) L Lipase 59 U/L (73-393) L Venous Blood pH 7.345 Venous Blood Partial Pressure CO2 27.1 Venous Blood Partial Pressure O2 < 45.3 Venous Blood HCO3 14.5 Venous Blood Total Carbon Dioxide 27.1 Venous Bld O2 Saturation (Measured) Pending Venous Blood Oxygen Saturation 26.7 Venous Blood Base Excess -9.9 Methemoglobin 1.2 Sodium (Blood Gas) Pending Urine Color Yellow Urine Appearance Clear Urine pH 5 (4.5-8.0) Urine Specific [place] 1.010 (1.005-1.035) Urine Protein 3+ (NEGATIVE) H Urine Glucose (UA) Negative (NEGATIVE) Urine Ketones Negative (NEGATIVE) Urine Blood 2+ (NEGATIVE) H Urine Nitrite Negative (NEGATIVE) Urine Bilirubin Negative (NEGATIVE) Urine Urobilinogen 1 MG/DL (0.0-1.0) H Urine Leukocyte Esterase 1+ (NEGATIVE) H Urine RBC 2-4 /HPF (0 - 2) H Urine WBC 0-2 /HPF (0 - 2) Urine Squamous Epithelial Cells Few /LPF (NONE/OCC) Urine Bacteria Few /HPF (NONE) Test 04/23/19 18:10 04/23/19 19:50 04/24/19 06:20 04/24/19 08:10 Arterial Blood pH 7.317 (7.350-7.450) 7.387 (7.350-7.450) Arterial Blood Partial Pressure CO2 20.0 mmHg (35.0-45.0) *L 32.2 mmHg (35.0-45.0) L Arterial Blood Partial Pressure O2 91.6 mmHg (75.0-100.0) 149.1 mmHg (75.0-100.0) H Arterial Blood HCO3 10.0 mmol/L (22.0-26.0) *L 18.9 mmol/L (22.0-26.0) L Arterial Blood Oxygen Saturation 95.3 % (95-100) 98.2 % (95-100) Arterial Blood Base Excess -14.0 (-2-2) *L -5.1 (-2-2) L [place] Test Positive Positive Ammonia 56 umol/L (11-32) H Sodium Level Pending Potassium Level Pending Chloride Level Pending Carbon Dioxide Level Pending Blood Urea Nitrogen Pending Creatinine Pending Estimat Glomerular Filtration Rate Pending Glucose Level Pending Calcium Level Pending Total Bilirubin Pending Aspartate Amino Transf (AST/SGOT) Pending Alanine Aminotransferase (ALT/SGPT) Pending Alkaline Phosphatase Pending Total Protein Pending Albumin Pending Globulin Pending Height (Feet): 5 Height (Inches): 4.00 Weight (Pounds): 165 Medications Current Medications Medications (Trade) Dose Ordered Sig/Satnam Route PRN Reason Start Time Stop Time Status Last Admin Dose Admin Barium Sulfate (Readi-Cat 2) 450 ml NOW PRN ORAL Radiology Procedure 04/24/19 06:45 04/26/19 06:40 Carvedilol (Coreg) 3.125 mg EVERY 12 HOURS ORAL 04/23/19 21:00 05/23/19 20:59 04/24/19 09:31 Chlorhexidine Gluconate (Sondra-Hex 2%) 1 applic DAILY@2000 TOPIC 04/24/19 20:00 05/24/19 19:59 Heparin Sodium/ Sodium Chloride (Heparin 1000 units/500ml Premix) 1,000 unit ONCE PRN IV PICC 04/24/19 06:45 04/24/19 23:59 Lidocaine HCl (Xylocaine 1% 30ml) 30 ml ONCE PRN INJ picc 04/24/19 06:45 04/24/19 23:59 Lidocaine/ Epinephrine (Lidocaine 1%/ Epi 0.01mg/ml 20ml) 30 ml ONCE INJ 04/24/19 11:46 04/24/19 13:00 Pantoprazole (Protonix) 40 mg DAILY ORAL 04/25/19 09:00 05/25/19 08:59 Piperacillin Sod/ Tazobactam Sod 3.375 gm/Sodium Chloride 110 ml @ 27.5 mls/hr EVERY 8 HOURS IVPB 04/23/19 22:00 04/28/19 21:59 04/23/19 22:54 Sodium Bicarbonate 50 ml/ Sodium Chloride 1,050 ml @ 60 mls/hr [id number] IV 04/23/19 23:45 05/23/19 23:44 04/24/19 00:43 Spironolactone (Aldactone) 25 mg DAILY ORAL 04/25/19 09:00 05/25/19 08:59 Sucralfate (Carafate) 1 gm DAILY ORAL 04/25/19 09:00 05/25/19 08:59 Vancomycin HCl (Vanco rx to dose) 1 ea DAILY PRN MISC Per rx protocol 04/23/19 19:30 05/23/19 19:29 Assessment/Plan Problem List: (1) Abdominal pain Assessment & Plan: 83 F with abdominal pain. no n/v. overall decompensated dehydrated will need IV fluids no IV access obtained at this time by multiple nurse attempts recommend central line see note bowel regimen thank you will follow with recs ICD Codes: R10.9 - Unspecified abdominal pain SNOMED: 89564733 (2) Lactic acid acidosis Assessment & Plan: iv fluids ICD Codes: E87.2 - Acidosis SNOMED: 42743630 (3) SOB (shortness of breath) ICD Codes: R06.02 - Shortness of breath SNOMED: 661984045 Remi Lindquist Apr 24, 2019 12:57
--- NOTE | 2019-04-24 12:59 | Operative Note - PDOC ---
Operative Note Operative Note Date of Operation/Procedure: Apr 24, 2019 Pre-op Diagnosis: lactic acidosis dehydration poor venous access Procedure: right internal jugular central venous catheter insertion with ultrasound guidance 15055-27 (ultrasound guidance) Post-op Diagnosis: same as pre-op Surgeon: viviana lindquist MD Anesthesia: local Specimen: none Complications: none Condition: stable Estimated Blood Loss: none Drains: none Implant(s) used?: No Indications for Procedure 83F with lactic acidosis, dehydration, poor venous access. unable to obtain peripheral venous access as attempted multiple times. needs central line. consent obtained from patient. Description of Procedure The patient was lying in the trendelenburg position with head turned 30 degrees away from the insertion site. The skin was thoroughly sponged with chlorhexidine and allowed to dry. All persons involved were shielded with hairnets, facemasks and sterile gowns. With sterile-gloved hands the right neck area was draped with the large disposable sterile field provided in the pre- manufactured kit. The skin and subcutaneous tissues superficial to the right internal jugular vein were anesthetized with 5 mL of 1% lidocaine. The internal jugular vein was identified on ultrasound from the angle of the mandible down into the supraclavicular fossa using the linear ultrasound probe in the transverse orientation. The carotid artery was identified and avoided utilizing color-flow. The internal jugular vein was then placed in the center of the ultrasound field and compressed for patency. A movement artifact was identified as the needle was advanced through the skin and advanced toward the vessel. A real time hyperechoic signal revealed visualization of vascular needle entry into the lumen as blood was noted to flashback in the syringe. The needle was then held in place while the guide wire was advanced. The needle was then removed. Direct visualization of guide wire location within the vein was noted on ultrasound indicating proper placement. A skin dilator was advanced over the guidewire and removed, and the triple-lumen catheter was then advanced over the guide wire into proper position. The guide wire was removed and discarded. The ports were aspirated which showed good blood return and then carefully flushed with normal saline. The catheter was stabilized and sutured to the skin with 2- 0 silk at 2 anchor points. A sterile bioocclusive dressing was placed over the catheter, including the insertion site. The patient tolerated the procedure well. A chest x-ray was ordered for position confirmation. An image recording of the procedure accompanies the chart. Viviana Lindquist Apr 24, 2019 12:59
--- NOTE | 2019-04-24 14:29 | Diagnostic Imaging Report ---
Indication: Headache Technique: Contiguous 5 mm thick transaxial imaging of the head obtained in a Siemens Sensation [address] scanner. Soft tissue and bone windows generated. Automatic Exposure Control was utilized. Total Dose length Product (DLP): 1456.[address] Dose Index Volume (CTDIvol): 70.38 mGy Comparison: 09/26/2012 Findings: There is mild prominence of the ventricles, basal cisterns, and cerebral sulci consistent with atrophy. Mild, nonspecific, white matter hypoattenuation is noted throughout the brain consistent with chronic small vessel disease. There is no midline shift, edema, acute hemorrhage, mass effect, or abnormal extra-axial fluid collections. Bones are unremarkable. Impression: No acute intracranial bleed, mass effect or edema. Mild atrophy of the brain. Nonspecific white matter hypoattenuation probably due to chronic small vessel disease. No significant interval change [facility] has communicated the preliminary results to the Emergency Department. Their findings are largely concordant with this report. The CT scanner at [facility] is accredited by the [employer] and the scans are performed using dose optimization techniques as appropriate to a performed exam including Automatic Exposure control.
--- NOTE | 2019-04-24 14:30 | Diagnostic Imaging Report ---
Indication: Abdominal pain Technique: Grayscale and duplex Doppler imaging of the abdomen performed. Comparison: None Findings: The liver is notable for surface nodularity. Doppler interrogation of the main portal vein shows patency with hepatopedal, monophasic flow. There is no biliary ductal dilatation identified. Gallbladder wall thickening noted without stone. Sonographic Ambriz's sign was negative per technologist. CBD measures 6 mm. There demonstrated part of the pancreas, aorta and IVC show no definite abnormalities. Both kidneys appear unremarkable. There is no hydronephrosis. There are bilateral pleural effusions present. IMPRESSION: Liver surface nodularity suggestive of chronic liver disease. Correlate clinically. Gallbladder wall thickening, nonspecific Bilateral pleural effusion
--- NOTE | 2019-04-24 14:30 | Diagnostic Imaging Report ---
Indication: Dyspnea Comparison: 08/25/2018 A single view chest radiograph was obtained. Findings: There is a retrocardiac opacity which may be a small pleural effusion. Cardiomegaly is present as well as a pacemaker. IMPRESSION: Suspected left pleural effusion
[2019-04-24 15:45] LABS: HEMATOCRIT 40.6 % (37.0-47.0); MEAN CORPUSCULAR VOLUME 98 FL (80-99); PLATELET COUNT 96 K/UL (150-450); RED BLOOD COUNT 4.15 M/UL (4.20-5.40); RED CELL DISTRIBUTION WIDTH 14.7 % (11.6-14.8); WHITE BLOOD COUNT 6.2 K/UL (4.8-10.8)
[2019-04-24 16:00] VITALS: BP 134/73
[2019-04-24 16:01] LABS: ALANINE AMINOTRANSFERASE 59 U/L (12-78); ALBUMIN 2.4 G/DL (3.4-5.0); ALBUMIN/GLOBULIN RATIO 0.6 (1.0-2.7); ALKALINE PHOSPHATASE 75 U/L (46-116); ANION GAP 7 mmol/L (5-15); ASPARTATE AMINO TRANSFERASE 132 U/L (15-37); BILIRUBIN,TOTAL 4.4 MG/DL (0.2-1.0); BLOOD UREA NITROGEN 31 mg/dL (7-18); CALCIUM 8.7 MG/DL (8.5-10.1); CARBON DIOXIDE 23 MMOL/L (21-32); CHLORIDE 109 MMOL/L (98-107); CREATININE 1.6 MG/DL (0.55-1.30); POTASSIUM 4.6 MMOL/L (3.5-5.1); SODIUM 139 MMOL/L (136-145)
[2019-04-24 16:05] LABS: BILIRUBIN,DIRECT 1.7 MG/DL (0.0-0.3)
--- NOTE | 2019-04-24 17:02 | NUR ---
NURSE NOTES: Labs drawn from central line; Dr Frankel notified of results. No further orders at this time.
[2019-04-24] MEDS ORDERED: 1/2 NS 1000ml IV ONE (17:05)
[2019-04-24] MEDS ORDERED: Tubing IV Secondary IV ONE (17:05)
--- NOTE | 2019-04-24 19:13 | NUR ---
HAND-OFF: Report given to JAN Obsorne. Patient in stable condition.
--- NOTE | 2019-04-24 19:20 | NUR ---
NURSE NOTES: Received bed side report from JAN Marshall.Patient stable,A&Ox4,sleeping after anaesthesia and central line placement, A-Fib on surveillance system monitor,2 L/min N/C Sat O2 96-100%,BS active in all quadrants,IV asymptomatic,intact on R IJ triple lumen TKO,bed secured,call light within a reach,pt close to the station,will continue to monitor and follow POC.
[2019-04-24 20:00] VITALS: BP 125/77
[2019-04-24] MEDS: Vancomycin 1.25gm Premix IVPB SCH (20:22)
[2019-04-24] MEDS: Dyna-Hex 2% Top Sol 2oz TOPIC SCH (20:22)
--- NOTE | 2019-04-24 22:31 | Cardiology Progress Note ---
Assessment/Plan Assessment/Plan 1. Paroxysmal atrial fibrillation, currently atrial fibrillation with controlled ventricular response, continue carvedilol and digoxin. Anticoagulation is contraindicated in view of hx of GI bleed, anemia and gastric cancer. 2. History of cardiomyopathy with left ventricular ejection fraction approximately 35%. 3. Status post AICD pacemaker implantation. 4. History of nonsustained ventricular tachycardia, Mg level at 1.8. 5. History of gastric cancer. 6. History of anemia, iron deficiency, most likely due to gastrointestinal bleed. 7. CKD. Subjective Subjective Atrial fibrillation with CVR at 80. More awake and alert. Objective Last 24 Hour Vital Signs Date Time Temp Pulse Resp B/P (MAP) Pulse Ox O2 Delivery O2 Flow Rate FiO2 04/24/19 20:21 80 125/77 04/24/19 16:00 2.0 04/24/19 16:00 97.0 75 22 134/73 (93) 100 04/24/19 16:00 Nasal Cannula 2.0 04/24/19 15:27 68 04/24/19 12:00 2.0 04/24/19 12:00 Nasal Cannula 2.0 04/24/19 12:00 97.2 76 22 124/74 (91) 100 04/24/19 11:31 79 04/24/19 09:31 74 126/75 04/24/19 08:00 Nasal Cannula 4.0 04/24/19 08:00 4.0 04/24/19 08:00 96.8 74 24 126/75 (92) 100 04/24/19 07:42 74 04/24/19 07:29 99 Nasal Cannula 4.0 36 04/24/19 04:00 Nasal Cannula 4.0 04/24/19 04:00 4.0 04/24/19 04:00 98.2 75 22 144/76 (98) 100 04/24/19 03:45 73 04/24/19 00:00 96.8 73 20 151/89 (109) 95 04/24/19 00:00 Nasal Cannula 4.0 04/23/19 23:36 69 Intake and Output 04/23/19 04/24/19 19:00 07:00 Intake Total 555 ml 365.0 ml Output Total 250 ml Balance 555 ml 115.0 ml Intake Oral 0 ml 120 ml IV Total 555 ml 245.0 ml Output Urine Total 250 ml Laboratory Tests Test 04/24/19 08:10 04/24/19 15:20 04/24/19 17:55 Arterial Blood pH 7.387 (7.350-7.450) Arterial Blood Partial Pressure CO2 32.2 mmHg (35.0-45.0) L Arterial Blood Partial Pressure O2 149.1 mmHg (75.0-100.0) H Arterial Blood HCO3 18.9 mmol/L (22.0-26.0) L Arterial Blood Oxygen Saturation 98.2 % (95-100) Arterial Blood Base Excess -5.1 (-2-2) L Adonay Test Positive White Blood Count 6.2 K/UL (4.8-10.8) Red Blood Count 4.15 M/UL (4.20-5.40) L Hemoglobin 13.0 G/DL (12.0-16.0) Hematocrit 40.6 % (37.0-47.0) Mean Corpuscular Volume 98 FL (80-99) Mean Corpuscular Hemoglobin 31.3 PG (27.0-31.0) H Mean Corpuscular Hemoglobin Concent 31.9 G/DL (32.0-36.0) L Red Cell Distribution Width 14.7 % (11.6-14.8) Platelet Count 96 K/UL (150-450) L Mean Platelet Volume 9.9 FL (6.5-10.1) Neutrophils (%) (Auto) % (45.0-75.0) Lymphocytes (%) (Auto) % (20.0-45.0) Monocytes (%) (Auto) % (1.0-10.0) Eosinophils (%) (Auto) % (0.0-3.0) Basophils (%) (Auto) % (0.0-2.0) Differential Total Cells Counted 100 Neutrophils % (Manual) 86 % (45-75) H Lymphocytes % (Manual) 8 % (20-45) L Monocytes % (Manual) 6 % (1-10) Eosinophils % (Manual) 0 % (0-3) Basophils % (Manual) 0 % (0-2) Band Neutrophils 0 % (0-8) Platelet Estimate Decreased L Platelet Morphology Normal Anisocytosis 1+ Macrocytosis 1+ Sodium Level 139 MMOL/L (136-145) Potassium Level 4.6 MMOL/L (3.5-5.1) Chloride Level 109 MMOL/L (98-107) H Carbon Dioxide Level 23 MMOL/L (21-32) Anion Gap 7 mmol/L (5-15) Blood Urea Nitrogen 31 mg/dL (7-18) H Creatinine 1.6 MG/DL (0.55-1.30) H Estimat Glomerular Filtration Rate mL/min (>60) Glucose Level 120 MG/DL (74-106) H Calcium Level 8.7 MG/DL (8.5-10.1) Total Bilirubin 4.4 MG/DL (0.2-1.0) H Direct Bilirubin 1.7 MG/DL (0.0-0.3) H Aspartate Amino Transf (AST/SGOT) 132 U/L (15-37) H Alanine Aminotransferase (ALT/SGPT) 59 U/L (12-78) Alkaline Phosphatase 75 U/L (46-116) Total Protein 6.6 G/DL (6.4-8.2) Albumin 2.4 G/DL (3.4-5.0) L Globulin 4.2 g/dL Albumin/Globulin Ratio 0.6 (1.0-2.7) L Random Vancomycin Level 9.7 ug/mL Objective HEENT: Atraumatic and normocephalic. Anicteric. Pupils are equal, round, and reactive to light and accommodation. Conjunctival pallor is present. NECK: JVP elevated about 15 centimeter. No carotid bruit. Carotid upstrokes 2+ bilaterally. CARDIOVASCULAR: Normal S1 and S2. Irregularly irregular rhythm. Cannot appreciate any murmurs, gallops, or rubs. LUNGS: Clear to auscultation bilaterally. ABDOMEN: Soft, nontender, and nondistended. No hepatosplenomegaly. Positive bowel sounds. Scar of surgery in the left midline vertical line, parallel to midline. EXTREMITIES: No evidence of edema, clubbing, or cyanosis. Carroll Fernandez MD Apr 24, 2019 22:31
[2019-04-25] VITALS: BP 128/68
[2019-04-25 04:00] VITALS: BP 110/56
[2019-04-25] MEDS: Sodium Bicarbonate 50 ML in 1/2 NS 1000ml 1,000 ML IV SCH (04:51)
[2019-04-25] MEDS: Piperacillin/Tazobactam 3.375 GM in NS 110 ML IVPB SCH ×3 (05:58→22:29)
--- NOTE | 2019-04-25 07:09 | NUR ---
HAND-OFF: Report given to JAN Roach.Patient stable,eating breakfast.
[2019-04-25 08:00] VITALS: BP 132/66
--- NOTE | 2019-04-25 08:00 | NUR ---
NURSE NOTES: received pt in the bed, awake, alert, oriented, vital signs stable, no co pain, no SOB, skin warm and dry to touch, intact, TLC on RT IJ, dressing dry and intact,dr. Frankel saw pt, tolerate diet well, bed in low position, call light within reach.
--- NOTE | 2019-04-25 08:20 | General Progress Note ---
Assessment/Plan Problem List: (1) Cirrhosis ICD Codes: K74.60 - Unspecified cirrhosis of liver SNOMED: 97047657 (2) Metabolic acidosis ICD Codes: E87.2 - Acidosis SNOMED: 27939143 (3) CHF (congestive heart failure), NYHA class IV ICD Codes: I50.9 - Heart failure, unspecified SNOMED: 299611271, 114457393 (4) SVT (supraventricular tachycardia) ICD Codes: I47.1 - Supraventricular tachycardia SNOMED: 2843939 (5) Elevated troponin (6) Anemia ICD Codes: D64.9 - Anemia, unspecified SNOMED: 394367310 (7) SOB (shortness of breath) ICD Codes: R06.02 - Shortness of breath SNOMED: 096432776 (8) A-fib ICD Codes: I48.91 - Unspecified atrial fibrillation SNOMED: 68920663 (9) Gastric cancer ICD Codes: C16.9 - Malignant neoplasm of stomach, unspecified SNOMED: 127585555 (10) Paroxysmal a-fib ICD Codes: I48.0 - Paroxysmal a-fib SNOMED: 363079675 Status: stable, progressing Assessment/Plan: dc ivf iv diuretics per cards gi eval o2 resp rx ct abd pending. Subjective ROS Limited/Unobtainable: No Constitutional: Reports: malaise, weakness HEENT: Reports: no symptoms Cardiovascular: Reports: no symptoms Respiratory: Reports: shortness of breath Gastrointestinal/Abdominal: Reports: abdominal pain Genitourinary: Reports: no symptoms Neurologic/Psychiatric: Reports: no symptoms Endocrine: Reports: no symptoms Hematologic/Lymphatic: Reports: no symptoms Allergies: Coded Allergies: CODEINE (Verified Allergy, Unknown, 06/17/18) All Systems: reviewed and negative except above Subjective feel better today. decreased abd pain. bicarb better. Objective Last 24 Hour Vital Signs Date Time Temp Pulse Resp B/P (MAP) Pulse Ox O2 Delivery O2 Flow Rate FiO2 04/25/19 08:00 Nasal Cannula 2.0 04/25/19 04:00 98.1 77 22 110/56 (74) 97 04/25/19 04:00 2.0 04/25/19 04:00 Nasal Cannula 2.0 04/25/19 03:32 85 04/25/19 00:00 Nasal Cannula 2.0 04/25/19 00:00 2.0 04/25/19 00:00 98.1 71 20 128/68 (88) 97 04/24/19 23:34 75 04/24/19 20:21 80 125/77 04/24/19 20:00 2.0 04/24/19 20:00 97.2 80 18 125/77 (93) 98 04/24/19 20:00 Nasal Cannula 2.0 04/24/19 19:47 79 04/24/19 18:38 100 Nasal Cannula 2.0 28 04/24/19 16:00 2.0 04/24/19 16:00 97.0 75 22 134/73 (93) 100 04/24/19 16:00 Nasal Cannula 2.0 04/24/19 15:27 68 04/24/19 12:00 2.0 04/24/19 12:00 Nasal Cannula 2.0 04/24/19 12:00 97.2 76 22 124/74 (91) 100 04/24/19 11:31 79 04/24/19 09:31 74 126/75 Intake and Output 04/24/19 04/25/19 19:00 07:00 Intake Total 520.55046 ml 1081.500 ml Output Total 200 ml 150 ml Balance 320.97350 ml 931.500 ml Intake Oral 50 ml IV Total 470.44081 ml 1081.500 ml Output Urine Total 200 ml 150 ml # Voids 2 Laboratory Tests 04/24/19 15:20: White Blood Count 6.2, Red Blood Count 4.15L, Hemoglobin 13.0, Hematocrit 40.6, Mean Corpuscular Volume 98, Mean Corpuscular Hemoglobin 31.3H, Mean Corpuscular Hemoglobin Concent 31.9L, Red Cell Distribution Width 14.7, Platelet Count 96L, Mean Platelet Volume 9.9, Neutrophils (%) (Auto) , Lymphocytes (%) (Auto) , Monocytes (%) (Auto) , Eosinophils (%) (Auto) , Basophils (%) (Auto) , Differential Total Cells Counted 100, Neutrophils % (Manual) 86H, Lymphocytes % (Manual) 8L, Monocytes % (Manual) 6, Eosinophils % (Manual) 0, Basophils % ( Manual) 0, Band Neutrophils 0, Platelet Estimate DecreasedL, Platelet Morphology Normal, Anisocytosis 1+, Macrocytosis 1+, Sodium Level 139, Potassium Level 4.6, Chloride Level 109H, Carbon Dioxide Level 23, Anion Gap 7, Blood Urea Nitrogen 31H, Creatinine 1.6H, Estimat Glomerular Filtration Rate , Glucose Level 120H, Calcium Level 8.7, Total Bilirubin 4.4H, Direct Bilirubin 1.7H, Aspartate Amino Transf (AST/SGOT) 132H, Alanine Aminotransferase (ALT/SGPT ) 59, Alkaline Phosphatase 75, Total Protein 6.6, Albumin 2.4L, Globulin 4.2, Albumin/Globulin Ratio 0.6L 04/24/19 17:55: Random Vancomycin Level 9.7 Height (Feet): 5 Height (Inches): 4.00 Weight (Pounds): 148 General Appearance: WD/WN, alert Neck: supple Cardiovascular: normal rate, regular rhythm Respiratory/Chest: chest wall non-tender, lungs clear, normal breath sounds, no respiratory distress Abdomen: normal bowel sounds, non tender, soft, no organomegaly Neurologic: manager programming II-XII grossly normal, alert, oriented x 3 Skin: normal pigmentation Palomo Frankel MD Apr 25, 2019 08:20
--- NOTE | 2019-04-25 08:37 | Diagnostic Imaging Report ---
Indication: Abdominal pain Technique: Spiral acquisitions obtained through the abdomen and pelvis. Patient ingested a small amount of oral contrast No IV contrast utilized, per referring physician request.. Multiplanar reconstructions were generated. Total dose length product 639 mGycm. CTDIvol(s) 13 mGy. Dose reduction achieved using automated exposure control Comparison: 06/19/2018 Findings: Again demonstrated is anasarca, with diffuse edema of the subcutaneous, mesenteric, and retroperitoneal fat. This limits contrast resolution. The appendix is not definitely identified, but no gross findings to suggest acute appendicitis are evident. There is questionable wall thickening of the distal descending colon. No evidence of diverticulosis or diverticulitis. No small bowel distention. There is a trace amount of intraperitoneal fluid. No free intraperitoneal gas. The distal esophagus, stomach, duodenum are grossly unremarkable. What are probably embolization coils are again demonstrated in the left mesentery. Surgical anastomotic staple line is seen in the left lower quadrant. The lack of IV contrast limits assessment of the solid organs. Liver, gallbladder, bile ducts are grossly unremarkable. The pancreas is somewhat atrophic. The spleen is unremarkable. The left kidney demonstrates a subcentimeter hyperdense upper pole lesion, probably a hyperdense proteinaceous cyst. Similar lesion is again demonstrated in the lower pole the right kidney. A cortical cyst is again demonstrated in the right renal interpolar region. No renal or ureteral calculi, hydronephrosis, or hydroureter. No pelvic mass or adenopathy. No retroperitoneal or mesenteric mass or adenopathy. Previously demonstrated Alarcon catheter is no longer evident. The uterus is not demonstrated, presumed surgically absent. There are moderate bilateral pleural effusions demonstrated. That on the right is markedly increased in size since the prior study. That on the left is similar in size. These result in compressive atelectatic changes of both lower lobes. The bones demonstrate mild degenerative spondylosis changes. Pacemaker wires are seen within the heart. The heart is enlarged. Impression: Anasarca, with diffuse edema of the subcutaneous, mesenteric, abdominal fat, also demonstrated on the prior exam. There is also pleural and peritoneal fluid As mentioned above, bilateral pleural effusions. Increased on the right, similar to the prior exam on the left. Resultant basilar compressive atelectatic changes Cardiomegaly and pacemaker Questionable wall thickening of the distal descending colon. Possibly on the basis of generalized edema, colitis possible Bilateral renal cysts. Other findings as noted, including evidence of prior small bowel surgery, left lower quadrant embolization coils, bilateral renal cysts, prior hysterectomy, degenerative spondylosis changes This agrees with the preliminary interpretation provided overnight by [facility] teleradiology service. The CT scanner at [facility] is accredited by the [employer] and the scans are performed using protocols designed to limit radiation exposure to as low as reasonably achievable to attain images of sufficient resolution adequate for diagnostic evaluation.
[2019-04-25] MEDS: Digoxin 0.125mg tab ORAL SCH (09:09)
[2019-04-25] MEDS: Spironolactone 25mg tab ORAL SCH (09:10)
[2019-04-25] MEDS: Sucralfate 1gm tab ORAL SCH (09:10)
--- NOTE | 2019-04-25 09:53 | General Progress Note ---
Assessment/Plan Status: stable, progressing Assessment/Plan: Assessment - abdominal pain - r/o urinary retention - Thickened colon on CT - ? significance - cirrhosis - CM/CHF/ICD - coagulopathy Recommendations - add Xifaxan - lactulose x 1 laxative - check bladder scan - check AFP - check HBV, HCV - clears OK Thank you Mauro Stephenson MD Subjective Allergies: Coded Allergies: CODEINE (Verified Allergy, Unknown, 06/17/18) Objective Last 24 Hour Vital Signs Date Time Temp Pulse Resp B/P (MAP) Pulse Ox O2 Delivery O2 Flow Rate FiO2 04/25/19 09:09 81 04/25/19 09:09 81 132/66 04/25/19 08:00 Nasal Cannula 2.0 04/25/19 08:00 97.2 81 20 132/66 (88) 100 04/25/19 04:00 98.1 77 22 110/56 (74) 97 04/25/19 04:00 2.0 04/25/19 04:00 Nasal Cannula 2.0 04/25/19 03:32 85 04/25/19 00:00 Nasal Cannula 2.0 04/25/19 00:00 2.0 04/25/19 00:00 98.1 71 20 128/68 (88) 97 04/24/19 23:34 75 04/24/19 20:21 80 125/77 04/24/19 20:00 2.0 04/24/19 20:00 97.2 80 18 125/77 (93) 98 04/24/19 20:00 Nasal Cannula 2.0 04/24/19 19:47 79 04/24/19 18:38 100 Nasal Cannula 2.0 28 04/24/19 16:00 2.0 04/24/19 16:00 97.0 75 22 134/73 (93) 100 04/24/19 16:00 Nasal Cannula 2.0 04/24/19 15:27 68 04/24/19 12:00 2.0 04/24/19 12:00 Nasal Cannula 2.0 04/24/19 12:00 97.2 76 22 124/74 (91) 100 04/24/19 11:31 79 Intake and Output 04/24/19 04/25/19 19:00 07:00 Intake Total 520.55228 ml 1081.500 ml Output Total 200 ml 150 ml Balance 320.14162 ml 931.500 ml Intake Oral 50 ml IV Total 470.00139 ml 1081.500 ml Output Urine Total 200 ml 150 ml # Voids 2 Laboratory Tests 04/24/19 15:20: White Blood Count 6.2, Red Blood Count 4.15L, Hemoglobin 13.0, Hematocrit 40.6, Mean Corpuscular Volume 98, Mean Corpuscular Hemoglobin 31.3H, Mean Corpuscular Hemoglobin Concent 31.9L, Red Cell Distribution Width 14.7, Platelet Count 96L, Mean Platelet Volume 9.9, Neutrophils (%) (Auto) , Lymphocytes (%) (Auto) , Monocytes (%) (Auto) , Eosinophils (%) (Auto) , Basophils (%) (Auto) , Differential Total Cells Counted 100, Neutrophils % (Manual) 86H, Lymphocytes % (Manual) 8L, Monocytes % (Manual) 6, Eosinophils % (Manual) 0, Basophils % ( Manual) 0, Band Neutrophils 0, Platelet Estimate DecreasedL, Platelet Morphology Normal, Anisocytosis 1+, Macrocytosis 1+, Sodium Level 139, Potassium Level 4.6, Chloride Level 109H, Carbon Dioxide Level 23, Anion Gap 7, Blood Urea Nitrogen 31H, Creatinine 1.6H, Estimat Glomerular Filtration Rate , Glucose Level 120H, Calcium Level 8.7, Total Bilirubin 4.4H, Direct Bilirubin 1.7H, Aspartate Amino Transf (AST/SGOT) 132H, Alanine Aminotransferase (ALT/SGPT ) 59, Alkaline Phosphatase 75, Total Protein 6.6, Albumin 2.4L, Globulin 4.2, Albumin/Globulin Ratio 0.6L 04/24/19 17:55: Random Vancomycin Level 9.7 Height (Feet): 5 Height (Inches): 4.00 Weight (Pounds): 148 Mauro Stephenson MD Apr 25, 2019 09:53
[2019-04-25] MEDS ORDERED: Lactulose 20gm/30ml UDC ORAL SCH (10:00)
--- NOTE | 2019-04-25 10:58 | Surgery Progress Note ---
Surgery Progress Note Subjective Procedure Performed right internal jugular central venous catheter insertion with ultrasound guidance 72361-58 (ultrasound guidance) Additional Comments no acute events labs noted CT reviewed exam stable line in place abd exam benign Objective Last 24 Hour Vital Signs Date Time Temp Pulse Resp B/P (MAP) Pulse Ox O2 Delivery O2 Flow Rate FiO2 04/25/19 09:09 81 04/25/19 09:09 81 132/66 04/25/19 08:00 Nasal Cannula 2.0 04/25/19 08:00 97.2 81 20 132/66 (88) 100 04/25/19 08:00 86 04/25/19 04:00 98.1 77 22 110/56 (74) 97 04/25/19 04:00 2.0 04/25/19 04:00 Nasal Cannula 2.0 04/25/19 03:32 85 04/25/19 00:00 Nasal Cannula 2.0 04/25/19 00:00 2.0 04/25/19 00:00 98.1 71 20 128/68 (88) 97 04/24/19 23:34 75 04/24/19 20:21 80 125/77 04/24/19 20:00 2.0 04/24/19 20:00 97.2 80 18 125/77 (93) 98 04/24/19 20:00 Nasal Cannula 2.0 04/24/19 19:47 79 04/24/19 18:38 100 Nasal Cannula 2.0 28 04/24/19 16:00 2.0 04/24/19 16:00 97.0 75 22 134/73 (93) 100 04/24/19 16:00 Nasal Cannula 2.0 04/24/19 15:27 68 04/24/19 12:00 2.0 04/24/19 12:00 Nasal Cannula 2.0 04/24/19 12:00 97.2 76 22 124/74 (91) 100 04/24/19 11:31 79 I&O Intake and Output 04/24/19 04/25/19 19:00 07:00 Intake Total 520.50548 ml 1081.500 ml Output Total 200 ml 150 ml Balance 320.91263 ml 931.500 ml Intake Oral 50 ml IV Total 470.07557 ml 1081.500 ml Output Urine Total 200 ml 150 ml # Voids 2 Cardiovascular: RSR Respiratory: clear Abdomen: soft, non-tender, present bowel sounds, non-distended Extremities: no tenderness, no cyanosis Laboratory Tests Test 04/24/19 15:20 04/24/19 17:55 White Blood Count 6.2 K/UL (4.8-10.8) Red Blood Count 4.15 M/UL (4.20-5.40) L Hemoglobin 13.0 G/DL (12.0-16.0) Hematocrit 40.6 % (37.0-47.0) Mean Corpuscular Volume 98 FL (80-99) Mean Corpuscular Hemoglobin 31.3 PG (27.0-31.0) H Mean Corpuscular Hemoglobin Concent 31.9 G/DL (32.0-36.0) L Red Cell Distribution Width 14.7 % (11.6-14.8) Platelet Count 96 K/UL (150-450) L Mean Platelet Volume 9.9 FL (6.5-10.1) Neutrophils (%) (Auto) % (45.0-75.0) Lymphocytes (%) (Auto) % (20.0-45.0) Monocytes (%) (Auto) % (1.0-10.0) Eosinophils (%) (Auto) % (0.0-3.0) Basophils (%) (Auto) % (0.0-2.0) Differential Total Cells Counted 100 Neutrophils % (Manual) 86 % (45-75) H Lymphocytes % (Manual) 8 % (20-45) L Monocytes % (Manual) 6 % (1-10) Eosinophils % (Manual) 0 % (0-3) Basophils % (Manual) 0 % (0-2) Band Neutrophils 0 % (0-8) Platelet Estimate Decreased L Platelet Morphology Normal Anisocytosis 1+ Macrocytosis 1+ Sodium Level 139 MMOL/L (136-145) Potassium Level 4.6 MMOL/L (3.5-5.1) Chloride Level 109 MMOL/L (98-107) H Carbon Dioxide Level 23 MMOL/L (21-32) Anion Gap 7 mmol/L (5-15) Blood Urea Nitrogen 31 mg/dL (7-18) H Creatinine 1.6 MG/DL (0.55-1.30) H Estimat Glomerular Filtration Rate mL/min (>60) Glucose Level 120 MG/DL (74-106) H Calcium Level 8.7 MG/DL (8.5-10.1) Total Bilirubin 4.4 MG/DL (0.2-1.0) H Direct Bilirubin 1.7 MG/DL (0.0-0.3) H Aspartate Amino Transf (AST/SGOT) 132 U/L (15-37) H Alanine Aminotransferase (ALT/SGPT) 59 U/L (12-78) Alkaline Phosphatase 75 U/L (46-116) Total Protein 6.6 G/DL (6.4-8.2) Albumin 2.4 G/DL (3.4-5.0) L Globulin 4.2 g/dL Albumin/Globulin Ratio 0.6 (1.0-2.7) L Random Vancomycin Level 9.7 ug/mL Plan Problems: (1) Abdominal pain Assessment & Plan: 83 F with abdominal pain. no n/v. overall decompensated dehydrated will need IV fluids no IV access obtained at this time by multiple nurse attempts see note CT findings with Impression: Anasarca, with diffuse edema of the subcutaneous, mesenteric, abdominal fat, also demonstrated on the prior exam. There is also pleural and peritoneal fluid As mentioned above, bilateral pleural effusions. Increased on the right, similar to the prior exam on the left. Resultant basilar compressive atelectatic changes Cardiomegaly and pacemaker Questionable wall thickening of the distal descending colon. Possibly on the basis of generalized edema, colitis possible Bilateral renal cysts. bowel regimen trend labs appreciate GI input. pending serology thank you will follow with recs (2) Lactic acid acidosis Assessment & Plan: trend elevated as of yesterday (3) SOB (shortness of breath) Remi Lindquist Apr 25, 2019 10:58
--- NOTE | 2019-04-25 11:45 | Diagnostic Imaging Report ---
Indication: Post line placement Technique: One view of the chest Comparison: 04/23/2019 Findings: Interim placement right jugular central venous catheter, tip which projects below the cavoatrial junction. No pneumothorax. Left pleural effusion persists. Left chest AICD is again demonstrated. The heart remains enlarged. Impression: Interim right jugular central venous catheter placement. No radiographically evident complication. Otherwise stable findings as described, including large left pleural effusion
[2019-04-25 12:00] VITALS: BP 107/68
--- NOTE | 2019-04-25 12:49 | NUR ---
CASE MANAGEMENT:REVIEW 83 YR OLD FEMALE FROM HOME TO ER PMH: CHAIR BOUND/WHEELCHAIR CC: GENERALIZED BODY ACHES AND HEART PROBLEM SI: ACS. SVT. ELEVATED TROPONIN 98.1 142 19 118/77 99% ON RA PLT-99 BUN+23 CR+1.5 TROPONIN(+) 0.087 PCO2-20.0 HCO3-10.0 IS: ASA PO QD 500CC NS BOLUS IV METOPROLOL Q15MIN X3 IV VANCOMYCIN X1 IV CEFEPIME X1 IV DIGOXIN IV LASIX CT HEAD CHEST XRAY : TO STEP DOWN UNIT INTERQUAL CRITERIA MET
--- NOTE | 2019-04-25 13:00 | NUR ---
NURSE NOTES: vital signs stable, no co pain, family at bedside, repositioned, continue monitoring
--- NOTE | 2019-04-25 13:35 | CDS Physician Query ---
Clarification is required for compliance, coding accuracy, and to reflect severity of illness for this patient Dear Dr. Carroll Fernandez Date: 04/25/2019 Forklift Picker/CDS Name: Ana Elder Clinical Documentation States: HNP: 83-year-old female with a history of congestive heart failure, hypertension, atrial fibrillation, gastric carcinoma, admitted with complaints of shortness of breath and abdominal pain secondary to CHF 04/23 cardiology note: History of cardiomyopathy with left ventricular ejection fraction approximately 35%. Labs: BNP - [address] CT abd/pelvis: Bilateral pleural effusion Treatment: Spironolactone, digoxin, carvedilol Please Clarify: Acuity [] Acute [] Chronic [] Acute on Chronic Type [] Systolic [] Diastolic [] Systolic & Diastolic (Combined) [] Other: Present on Admission: [] Yes [] No [] Clinically Undetermined Physician signature Date Please also document in your Progress Notes and/or Discharge Summary and indicate if the condition was present on admission. MTDD
[2019-04-25 16:00] VITALS: BP 120/69
--- NOTE | 2019-04-25 17:00 | NUR ---
NURSE NOTES: pt had episode of HR 43, dr Fernandez aware.
--- NOTE | 2019-04-25 19:15 | NUR ---
HAND-OFF: Report given to CLAIRE MONTOYA.
--- NOTE | 2019-04-25 19:16 | NUR ---
NURSE NOTES: Received bed side report from JAN Roach.Patient stable,A&Ox4,sleeping ,A-Fib on front desk monitor,2 L/min N/C Sat O2 96-100%,BS active in all quadrants,pt refused food at this time,IV asymptomatic,intact on R IJ triple lumen TKO,bed secured,call light within a reach,pt close to the station,will continue to monitor and follow POC.
[2019-04-25 20:00] VITALS: BP 110/80
[2019-04-25] MEDS: Dyna-Hex 2% Top Sol 2oz TOPIC SCH (20:49)
[2019-04-26] VITALS: BP 136/74
--- NOTE | 2019-04-26 03:45 | Consultation ---
DATE OF CONSULTATION: 04/25/2019 GASTROLOGY CONSULTATION CHIEF COMPLAINT: I was asked to see this patient by Dr. Palomo Frankel and Dr. Miguel Mason for evaluation of abdominal pain. HISTORY OF PRESENT ILLNESS: The patient is an 83-year-old woman, who is a host of medical problems including the cirrhosis, who comes into the hospital and is being seen at the observation unit. The patient has been complaining of mild abdominal pain for about a week. She states the pain is diffuse, but points to her upper abdomen. She states there has been some nausea and vomiting and possibly loose stools as documented in the chart. Her last endoscopy and colonoscopy was in 2017, and she had a subsequent endoscopy in late 2018. She has had a history of gastric cancer and she has undergone antrectomy and Billroth II anastomosis. The patient also has a history of cirrhosis and the etiology of this is not outlined in the chart. She does have a longstanding history of cardiomyopathy, congestive heart failure, ICD defibrillator placement. The patient is somewhat of a poor historian and does not offer much details on her complaints. PAST MEDICAL HISTORY: History of hypertension, cardiomyopathy with congestive heart failure, status post cardiac defibrillator placement, history of gastric cancer status post distal gastrectomy and Billroth II anastomosis, type 2 diabetes, chronic kidney disease, paroxysmal atrial fibrillation and ventricular tachycardia, hyperuricemia, history of colon polyp, history of gastric arteriovenous malformations, anemia, and history of cirrhosis. ALLERGIES: Codeine. FAMILY HISTORY: Noncontributory. SOCIAL HISTORY: The patient does not smoke or drink alcohol. REVIEW OF SYSTEMS: Otherwise negative. PHYSICAL EXAMINATION: GENERAL: A debilitated woman, who did not engage much in the conversation during the interview, and in no distress. HEENT: Normocephalic and atraumatic. NECK: Supple. CHEST: Reveals scattered rhonchi. CARDIOVASCULAR: Revealed a regular rate. ABDOMEN: Soft with mild tenderness in the epigastric and bilateral upper quadrant regions and also there is a fullness in the pelvis area, which was suggestive of bladder distention. EXTREMITIES: Revealed 1+ to 2+ bilateral lower extremity edema. NEUROLOGIC: Grossly nonfocal although difficult to evaluate due to the patient's noncooperative state. LABORATORY DATA: Noted. ASSESSMENT: This patient presents with a vague complaint of abdominal discomfort of unclear etiology. The CT scan shows possible thickening of the left colon but significance of this radiologic finding is unclear. I will check a Clostridium difficile assay and stool. In addition, the patient also had a bladder scan to rule out bladder retention as the cause of some of her abdominal pain. Alternatively, a straight Alarcon can give the same information. The patient also has cirrhosis and I will check her hepatitis B and C serologies. However given her cardiomyopathy, has stable profile and she can been followed conservatively at this time. Alpha-fetoprotein should also be checked to rule out liver carcinoma. Should the patient's abdominal pain not improve, then endoscopy can be considered, but for the time being I would continue her Carafate and proton pump inhibitor. Trial of a laxative must be considered. RECOMMENDATIONS: Per above discussion and per orders written in the chart. Thank you for asking me to participate in the care of this patient. Mauro Stephenson M.D. DR: VENANCIO JOB#: [id number] CC: SURAJ
[2019-04-26 04:00] VITALS: BP 100/60
[2019-04-26] MEDS: Piperacillin/Tazobactam 3.375 GM in NS 110 ML IVPB SCH ×3 (05:31→21:38)
[2019-04-26 05:45] LABS: BASOPHILS % (AUTO) 0.9 % (0.0-2.0); EOSINOPHILS % (AUTO) 0.9 % (0.0-3.0); HEMATOCRIT 35.1 % (37.0-47.0); LYMPHOCYTES % (AUTO) 15.7 % (20.0-45.0); MEAN CORPUSCULAR VOLUME 101 FL (80-99); MONOCYTES % (AUTO) 15.3 % (1.0-10.0); NEUTROPHILS % (AUTO) 67.2 % (45.0-75.0); PLATELET COUNT 101 K/UL (150-450); RED BLOOD COUNT 3.48 M/UL (4.20-5.40); RED CELL DISTRIBUTION WIDTH 15.2 % (11.6-14.8); WHITE BLOOD COUNT 5.7 K/UL (4.8-10.8)
[2019-04-26 06:06] LABS: ALANINE AMINOTRANSFERASE 52 U/L (12-78); ALBUMIN 2.4 G/DL (3.4-5.0); ALBUMIN/GLOBULIN RATIO 0.6 (1.0-2.7); ALKALINE PHOSPHATASE 64 U/L (46-116); ANION GAP 6 mmol/L (5-15); ASPARTATE AMINO TRANSFERASE 75 U/L (15-37); BILIRUBIN,TOTAL 3.1 MG/DL (0.2-1.0); BLOOD UREA NITROGEN 28 mg/dL (7-18); CALCIUM 8.1 MG/DL (8.5-10.1); CARBON DIOXIDE 28 MMOL/L (21-32); CHLORIDE 107 MMOL/L (98-107); CREATININE 1.2 MG/DL (0.55-1.30); POTASSIUM 3.6 MMOL/L (3.5-5.1); SODIUM 141 MMOL/L (136-145)
[2019-04-26 06:52] LABS: BILIRUBIN,DIRECT 1.6 MG/DL (0.0-0.3)
--- NOTE | 2019-04-26 07:18 | NUR ---
HAND-OFF: Report given to JAN Roach.Patient stable,eating breakfast.
[2019-04-26 08:00] VITALS: BP 112/57
--- NOTE | 2019-04-26 08:00 | NUR ---
NURSE NOTES: received pt in the bed, awake, alert, vital signs stable, no SOB, no co pain, skin warm and dry to touch, intact, TLC on RT IJ, dressing dry and intact, Alarcon catheter with yellow urine,tolerate diet well, bed in low position, call light within reach.
[2019-04-26] MEDS: Sucralfate 1gm tab ORAL SCH (08:38)
[2019-04-26] MEDS: Digoxin 0.125mg tab ORAL SCH (08:38)
[2019-04-26] MEDS: Spironolactone 25mg tab ORAL SCH (08:39)
[2019-04-26 12:00] VITALS: BP 124/74
--- NOTE | 2019-04-26 15:03 | Surgery Progress Note ---
Surgery Progress Note Subjective Procedure Performed right internal jugular central venous catheter insertion with ultrasound guidance 72135-48 (ultrasound guidance) Additional Comments no acute events. comfortable. stable. line in place labs improved. GI note noted Objective Last 24 Hour Vital Signs Date Time Temp Pulse Resp B/P (MAP) Pulse Ox O2 Delivery O2 Flow Rate FiO2 04/26/19 12:00 80 04/26/19 12:00 97.2 86 21 124/74 (91) 96 04/26/19 12:00 Nasal Cannula 2.0 04/26/19 09:45 Nasal Cannula 2.0 04/26/19 08:38 91 04/26/19 08:38 91 112/57 04/26/19 08:00 85 04/26/19 08:00 Nasal Cannula 2.0 04/26/19 08:00 98.7 91 20 112/57 (75) 100 04/26/19 07:18 96 Nasal Cannula 2.0 28 04/26/19 04:00 98.1 82 20 100/60 (73) 94 04/26/19 04:00 Nasal Cannula 2.0 04/26/19 03:35 84 04/26/19 00:00 97.7 82 20 136/74 (94) 100 04/26/19 00:00 Nasal Cannula 2.0 04/25/19 23:28 73 04/25/19 21:59 94 Nasal Cannula 2.0 28 04/25/19 20:47 61 110/80 04/25/19 20:00 97.6 67 20 110/80 (90) 99 04/25/19 20:00 Nasal Cannula 2.0 04/25/19 19:53 69 04/25/19 16:00 65 04/25/19 16:00 Nasal Cannula 2.0 04/25/19 16:00 97.6 79 20 120/69 (86) 96 I&O Intake and Output 04/25/19 04/26/19 19:00 07:00 Intake Total 310.0 ml 391.25 ml Output Total 501 ml 800 ml Balance -191.0 ml -408.75 ml Intake Oral 200 ml 240 ml IV Total 110.0 ml 151.25 ml Output Urine Total 500 ml 800 ml Stool Total 1 ml # Bowel Movements 1 Dressing: dry Wound: clean Drains: none Cardiovascular: RSR Respiratory: clear Abdomen: soft, present bowel sounds, non-distended Extremities: no tenderness, no cyanosis Laboratory Tests Test 04/26/19 03:30 04/26/19 11:20 White Blood Count 5.7 K/UL (4.8-10.8) Red Blood Count 3.48 M/UL (4.20-5.40) L Hemoglobin 11.0 G/DL (12.0-16.0) L Hematocrit 35.1 % (37.0-47.0) L Mean Corpuscular Volume 101 FL (80-99) H Mean Corpuscular Hemoglobin 31.7 PG (27.0-31.0) H Mean Corpuscular Hemoglobin Concent 31.3 G/DL (32.0-36.0) L Red Cell Distribution Width 15.2 % (11.6-14.8) H Platelet Count 101 K/UL (150-450) L Mean Platelet Volume 10.6 FL (6.5-10.1) H Neutrophils (%) (Auto) 67.2 % (45.0-75.0) Lymphocytes (%) (Auto) 15.7 % (20.0-45.0) L Monocytes (%) (Auto) 15.3 % (1.0-10.0) H Eosinophils (%) (Auto) 0.9 % (0.0-3.0) Basophils (%) (Auto) 0.9 % (0.0-2.0) Erythrocyte Sedimentation Rate 5 MM/HR (0-30) Sodium Level 141 MMOL/L (136-145) Potassium Level 3.6 MMOL/L (3.5-5.1) Chloride Level 107 MMOL/L (98-107) Carbon Dioxide Level 28 MMOL/L (21-32) Anion Gap 6 mmol/L (5-15) Blood Urea Nitrogen 28 mg/dL (7-18) H Creatinine 1.2 MG/DL (0.55-1.30) Estimat Glomerular Filtration Rate mL/min (>60) Glucose Level 145 MG/DL (74-106) H Calcium Level 8.1 MG/DL (8.5-10.1) L Total Bilirubin 3.1 MG/DL (0.2-1.0) H Direct Bilirubin 1.6 MG/DL (0.0-0.3) H Aspartate Amino Transf (AST/SGOT) 75 U/L (15-37) H Alanine Aminotransferase (ALT/SGPT) 52 U/L (12-78) Alkaline Phosphatase 64 U/L (46-116) C-Reactive Protein, Quantitative 1.2 mg/dL (0.00-0.90) H Total Protein 6.3 G/DL (6.4-8.2) L Albumin 2.4 G/DL (3.4-5.0) L Globulin 3.9 g/dL Albumin/Globulin Ratio 0.6 (1.0-2.7) L Amylase Level 60 U/L (25-115) Lipase 265 U/L (73-393) Hepatitis B Surface Antigen Pending Hepatitis C Antibody Pending Stool Occult Blood Pending Plan Problems: (1) Abdominal pain Assessment & Plan: 83 F with abdominal pain. no n/v. overall decompensated dehydrated will need IV fluids no IV access obtained at this time by multiple nurse attempts see note CT findings with Impression: Anasarca, with diffuse edema of the subcutaneous, mesenteric, abdominal fat, also demonstrated on the prior exam. There is also pleural and peritoneal fluid As mentioned above, bilateral pleural effusions. Increased on the right, similar to the prior exam on the left. Resultant basilar compressive atelectatic changes Cardiomegaly and pacemaker Questionable wall thickening of the distal descending colon. Possibly on the basis of generalized edema, colitis possible Bilateral renal cysts. bowel regimen trend labs appreciate GI input. pending serology thank you will follow with recs (2) Lactic acid acidosis Assessment & Plan: resolved (3) SOB (shortness of breath) Remi Lindquist Apr 26, 2019 15:03
[2019-04-26 16:00] VITALS: BP 133/62
--- NOTE | 2019-04-26 16:10 | NUR ---
NURSE NOTES: pt had V tach 7 in a roll, asymptomatic, vital signs stable, no co pain, called dr. Fernandez office, left massage.
--- NOTE | 2019-04-26 17:05 | General Progress Note ---
Assessment/Plan Problem List: (1) Cirrhosis ICD Codes: K74.60 - Unspecified cirrhosis of liver SNOMED: 61355474 (2) Metabolic acidosis ICD Codes: E87.2 - Acidosis SNOMED: 18295317 (3) CHF (congestive heart failure), NYHA class IV ICD Codes: I50.9 - Heart failure, unspecified SNOMED: 546075517, 385780246 (4) SVT (supraventricular tachycardia) ICD Codes: I47.1 - Supraventricular tachycardia SNOMED: 3891754 (5) Elevated troponin (6) Anemia ICD Codes: D64.9 - Anemia, unspecified SNOMED: 602579078 (7) SOB (shortness of breath) ICD Codes: R06.02 - Shortness of breath SNOMED: 323483892 (8) A-fib ICD Codes: I48.91 - Unspecified atrial fibrillation SNOMED: 07345715 (9) Gastric cancer ICD Codes: C16.9 - Malignant neoplasm of stomach, unspecified SNOMED: 089536047 (10) Paroxysmal a-fib ICD Codes: I48.0 - Paroxysmal a-fib SNOMED: 368930372 Status: stable, progressing Assessment/Plan: dc ivf iv diuretics per cards gi eval o2 resp rx ct abd pending. Subjective ROS Limited/Unobtainable: Yes Constitutional: Reports: malaise, weakness HEENT: Reports: no symptoms Cardiovascular: Reports: no symptoms Respiratory: Reports: shortness of breath Gastrointestinal/Abdominal: Reports: no symptoms Genitourinary: Reports: no symptoms Neurologic/Psychiatric: Reports: no symptoms Endocrine: Reports: no symptoms Hematologic/Lymphatic: Reports: no symptoms Allergies: Coded Allergies: CODEINE (Verified Allergy, Unknown, 06/17/18) All Systems: reviewed and negative except above Subjective feel better today. decreased abd pain. no fever or chills. labs improving. Objective Last 24 Hour Vital Signs Date Time Temp Pulse Resp B/P (MAP) Pulse Ox O2 Delivery O2 Flow Rate FiO2 04/26/19 16:00 75 04/26/19 16:00 Nasal Cannula 2.0 04/26/19 12:00 80 04/26/19 12:00 97.2 86 21 124/74 (91) 96 04/26/19 12:00 Nasal Cannula 2.0 04/26/19 09:45 Nasal Cannula 2.0 04/26/19 08:38 91 04/26/19 08:38 91 112/57 04/26/19 08:00 85 04/26/19 08:00 Nasal Cannula 2.0 04/26/19 08:00 98.7 91 20 112/57 (75) 100 04/26/19 07:18 96 Nasal Cannula 2.0 28 04/26/19 04:00 98.1 82 20 100/60 (73) 94 04/26/19 04:00 Nasal Cannula 2.0 04/26/19 03:35 84 04/26/19 00:00 97.7 82 20 136/74 (94) 100 04/26/19 00:00 Nasal Cannula 2.0 04/25/19 23:28 73 04/25/19 21:59 94 Nasal Cannula 2.0 28 04/25/19 20:47 61 110/80 04/25/19 20:00 97.6 67 20 110/80 (90) 99 04/25/19 20:00 Nasal Cannula 2.0 04/25/19 19:53 69 Intake and Output 04/25/19 04/26/19 19:00 07:00 Intake Total 310.0 ml 391.25 ml Output Total 501 ml 800 ml Balance -191.0 ml -408.75 ml Intake Oral 200 ml 240 ml IV Total 110.0 ml 151.25 ml Output Urine Total 500 ml 800 ml Stool Total 1 ml # Bowel Movements 1 Laboratory Tests 04/26/19 03:30: White Blood Count 5.7, Red Blood Count 3.48L, Hemoglobin 11.0L, Hematocrit 35.1L , Mean Corpuscular Volume 101H, Mean Corpuscular Hemoglobin 31.7H, Mean Corpuscular Hemoglobin Concent 31.3L, Red Cell Distribution Width 15.2H, Platelet Count 101L, Mean Platelet Volume 10.6H, Neutrophils (%) (Auto) 67.2, Lymphocytes (%) (Auto) 15.7L, Monocytes (%) (Auto) 15.3H, Eosinophils (%) (Auto ) 0.9, Basophils (%) (Auto) 0.9, Erythrocyte Sedimentation Rate 5, Sodium Level 141, Potassium Level 3.6, Chloride Level 107, Carbon Dioxide Level 28, Anion Gap 6, Blood Urea Nitrogen 28H, Creatinine 1.2, Estimat Glomerular Filtration Rate , Glucose Level 145H, Calcium Level 8.1L, Total Bilirubin 3.1H, Direct Bilirubin 1.6H, Aspartate Amino Transf (AST/SGOT) 75H, Alanine Aminotransferase (ALT/SGPT) 52, Alkaline Phosphatase 64, C-Reactive Protein, Quantitative 1.2H, Total Protein 6.3L, Albumin 2.4L, Globulin 3.9, Albumin/Globulin Ratio 0.6L, Amylase Level 60, Lipase 265, Hepatitis B Surface Antigen [Pending], Hepatitis C Antibody [Pending] 04/26/19 11:20: Stool Occult Blood [Pending] Height (Feet): 5 Height (Inches): 4.00 Weight (Pounds): 149 General Appearance: WD/WN, alert Neck: supple Cardiovascular: normal rate, regular rhythm Respiratory/Chest: chest wall non-tender, lungs clear, normal breath sounds, no respiratory distress Abdomen: normal bowel sounds, non tender, soft, no organomegaly Edema: no edema noted Arm (L), no edema noted Arm (R), no edema noted Leg (L), no edema noted Leg (R), no edema noted Pedal (L), no edema noted Pedal (R), no edema noted Generalized 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
[2019-04-26] MEDS ORDERED: Tubing IV Secondary IV ONE (17:30)
[2019-04-26] MEDS ORDERED: NS 275ml ONE (17:30)
--- NOTE | 2019-04-26 19:23 | NUR ---
HAND-OFF: Report given to MICHELLE MONTOYA.
[2019-04-26 20:00] VITALS: BP 104/64
--- NOTE | 2019-04-26 20:18 | NUR ---
NURSE NOTES: pt awake and alert hr 72 a-fib with pvc no c/o chest pain or sob reposition and suction
[2019-04-26] MEDS: Dyna-Hex 2% Top Sol 2oz TOPIC SCH (20:43)
[2019-04-26] MEDS: Carvedilol 6.25mg Tab ORAL SCH (20:45)
[2019-04-26] MEDS: Vancomycin 1.25gm Premix IVPB SCH (20:45)
--- NOTE | 2019-04-26 21:12 | General Progress Note ---
Assessment/Plan Status: stable, progressing Assessment/Plan: Assessment - abdominal pain, improved - urinary retention - Thickened colon on CT - Doubt significance - cirrhosis - CM/CHF/ICD - coagulopathy - Anasarca - Poor Px Recommendations - Xifaxan - lactulose - check AFP - check HBV, HCV - advance po diet Subjective Allergies: Coded Allergies: CODEINE (Verified Allergy, Unknown, 06/17/18) Subjective Above noted flanagan placed --> PVR of 400cc, flanagan left in place feels OK does not complain of much today Objective Last 24 Hour Vital Signs Date Time Temp Pulse Resp B/P (MAP) Pulse Ox O2 Delivery O2 Flow Rate FiO2 04/26/19 20:45 75 133/62 04/26/19 20:13 96 Nasal Cannula 2.0 28 04/26/19 16:00 75 04/26/19 16:00 Nasal Cannula 2.0 04/26/19 16:00 98.0 86 20 133/62 (85) 95 04/26/19 12:00 80 04/26/19 12:00 97.2 86 21 124/74 (91) 96 04/26/19 12:00 Nasal Cannula 2.0 04/26/19 09:45 Nasal Cannula 2.0 04/26/19 08:38 91 04/26/19 08:38 91 112/57 04/26/19 08:00 85 04/26/19 08:00 Nasal Cannula 2.0 04/26/19 08:00 98.7 91 20 112/57 (75) 100 04/26/19 07:18 96 Nasal Cannula 2.0 28 04/26/19 04:00 98.1 82 20 100/60 (73) 94 04/26/19 04:00 Nasal Cannula 2.0 04/26/19 03:35 84 04/26/19 00:00 97.7 82 20 136/74 (94) 100 04/26/19 00:00 Nasal Cannula 2.0 04/25/19 23:28 73 04/25/19 21:59 94 Nasal Cannula 2.0 28 Intake and Output 04/25/19 04/26/19 18:59 06:59 Intake Total 397.5 ml 363.75 ml Output Total 501 ml 800 ml Balance -103.5 ml -436.25 ml Intake Oral 200 ml 240 ml IV Total 197.5 ml 123.75 ml Output Urine Total 500 ml 800 ml Stool Total 1 ml # Bowel Movements 1 Laboratory Tests 04/26/19 03:30: White Blood Count 5.7, Red Blood Count 3.48L, Hemoglobin 11.0L, Hematocrit 35.1L , Mean Corpuscular Volume 101H, Mean Corpuscular Hemoglobin 31.7H, Mean Corpuscular Hemoglobin Concent 31.3L, Red Cell Distribution Width 15.2H, Platelet Count 101L, Mean Platelet Volume 10.6H, Neutrophils (%) (Auto) 67.2, Lymphocytes (%) (Auto) 15.7L, Monocytes (%) (Auto) 15.3H, Eosinophils (%) (Auto ) 0.9, Basophils (%) (Auto) 0.9, Erythrocyte Sedimentation Rate 5, Sodium Level 141, Potassium Level 3.6, Chloride Level 107, Carbon Dioxide Level 28, Anion Gap 6, Blood Urea Nitrogen 28H, Creatinine 1.2, Estimat Glomerular Filtration Rate , Glucose Level 145H, Calcium Level 8.1L, Total Bilirubin 3.1H, Direct Bilirubin 1.6H, Aspartate Amino Transf (AST/SGOT) 75H, Alanine Aminotransferase (ALT/SGPT) 52, Alkaline Phosphatase 64, C-Reactive Protein, Quantitative 1.2H, Total Protein 6.3L, Albumin 2.4L, Globulin 3.9, Albumin/Globulin Ratio 0.6L, Amylase Level 60, Lipase 265, Hepatitis B Surface Antigen [Pending], Hepatitis C Antibody [Pending] 04/26/19 11:20: Stool Occult Blood [Pending] Height (Feet): 5 Height (Inches): 4.00 Weight (Pounds): 149 Objective Debilitated AA woman NCAT supple CTA RR abd soft, (+) edema ext (+) edema Mauro Stephenson MD Apr 26, 2019 21:12
[2019-04-26] MEDS: Lactulose 20gm/30ml UDC ORAL SCH (21:39)
--- NOTE | 2019-04-26 23:44 | Cardiology Progress Note ---
Assessment/Plan Assessment/Plan 1. Paroxysmal atrial fibrillation, currently atrial fibrillation with controlled ventricular response, continue carvedilol and digoxin. Anticoagulation is contraindicated in view of hx of GI bleed, anemia and gastric cancer. 2. History of cardiomyopathy with left ventricular ejection fraction approximately 35%. 3. Status post AICD pacemaker implantation. 4. History of nonsustained ventricular tachycardia, Mg level at 1.8. 5. History of gastric cancer. 6. History of anemia, iron deficiency, most likely due to gastrointestinal bleed. 7. CKD. Subjective Subjective Atrial fibrillation with CVR at 80. More awake and alert. Objective Last 24 Hour Vital Signs Date Time Temp Pulse Resp B/P (MAP) Pulse Ox O2 Delivery O2 Flow Rate FiO2 04/26/19 20:45 75 133/62 04/26/19 20:13 96 Nasal Cannula 2.0 28 04/26/19 20:00 Nasal Cannula 2.0 04/26/19 20:00 72 04/26/19 20:00 97.7 65 18 104/64 (77) 96 04/26/19 16:00 75 04/26/19 16:00 Nasal Cannula 2.0 04/26/19 16:00 98.0 86 20 133/62 (85) 95 04/26/19 12:00 80 04/26/19 12:00 97.2 86 21 124/74 (91) 96 04/26/19 12:00 Nasal Cannula 2.0 04/26/19 09:45 Nasal Cannula 2.0 04/26/19 08:38 91 04/26/19 08:38 91 112/57 04/26/19 08:00 85 04/26/19 08:00 Nasal Cannula 2.0 04/26/19 08:00 98.7 91 20 112/57 (75) 100 04/26/19 07:18 96 Nasal Cannula 2.0 28 04/26/19 04:00 98.1 82 20 100/60 (73) 94 04/26/19 04:00 Nasal Cannula 2.0 04/26/19 03:35 84 04/26/19 00:00 97.7 82 20 136/74 (94) 100 04/26/19 00:00 Nasal Cannula 2.0 Intake and Output 04/25/19 04/26/19 19:00 07:00 Intake Total 310.0 ml 391.25 ml Output Total 501 ml 800 ml Balance -191.0 ml -408.75 ml Intake Oral 200 ml 240 ml IV Total 110.0 ml 151.25 ml Output Urine Total 500 ml 800 ml Stool Total 1 ml # Bowel Movements 1 Laboratory Tests Test 04/26/19 03:30 04/26/19 11:20 White Blood Count 5.7 K/UL (4.8-10.8) Red Blood Count 3.48 M/UL (4.20-5.40) L Hemoglobin 11.0 G/DL (12.0-16.0) L Hematocrit 35.1 % (37.0-47.0) L Mean Corpuscular Volume 101 FL (80-99) H Mean Corpuscular Hemoglobin 31.7 PG (27.0-31.0) H Mean Corpuscular Hemoglobin Concent 31.3 G/DL (32.0-36.0) L Red Cell Distribution Width 15.2 % (11.6-14.8) H Platelet Count 101 K/UL (150-450) L Mean Platelet Volume 10.6 FL (6.5-10.1) H Neutrophils (%) (Auto) 67.2 % (45.0-75.0) Lymphocytes (%) (Auto) 15.7 % (20.0-45.0) L Monocytes (%) (Auto) 15.3 % (1.0-10.0) H Eosinophils (%) (Auto) 0.9 % (0.0-3.0) Basophils (%) (Auto) 0.9 % (0.0-2.0) Erythrocyte Sedimentation Rate 5 MM/HR (0-30) Sodium Level 141 MMOL/L (136-145) Potassium Level 3.6 MMOL/L (3.5-5.1) Chloride Level 107 MMOL/L (98-107) Carbon Dioxide Level 28 MMOL/L (21-32) Anion Gap 6 mmol/L (5-15) Blood Urea Nitrogen 28 mg/dL (7-18) H Creatinine 1.2 MG/DL (0.55-1.30) Estimat Glomerular Filtration Rate mL/min (>60) Glucose Level 145 MG/DL (74-106) H Calcium Level 8.1 MG/DL (8.5-10.1) L Total Bilirubin 3.1 MG/DL (0.2-1.0) H Direct Bilirubin 1.6 MG/DL (0.0-0.3) H Aspartate Amino Transf (AST/SGOT) 75 U/L (15-37) H Alanine Aminotransferase (ALT/SGPT) 52 U/L (12-78) Alkaline Phosphatase 64 U/L (46-116) C-Reactive Protein, Quantitative 1.2 mg/dL (0.00-0.90) H Total Protein 6.3 G/DL (6.4-8.2) L Albumin 2.4 G/DL (3.4-5.0) L Globulin 3.9 g/dL Albumin/Globulin Ratio 0.6 (1.0-2.7) L Amylase Level 60 U/L (25-115) Lipase 265 U/L (73-393) Hepatitis B Surface Antigen Pending Hepatitis C Antibody Pending Stool Occult Blood Pending Objective HEENT: Atraumatic and normocephalic. Anicteric. Pupils are equal, round, and reactive to light and accommodation. Conjunctival pallor is present. NECK: JVP elevated about 15 centimeter. No carotid bruit. Carotid upstrokes 2+ bilaterally. CARDIOVASCULAR: Normal S1 and S2. Irregularly irregular rhythm. Cannot appreciate any murmurs, gallops, or rubs. LUNGS: Clear to auscultation bilaterally. ABDOMEN: Soft, nontender, and nondistended. No hepatosplenomegaly. Positive bowel sounds. Scar of surgery in the left midline vertical line, parallel to midline. EXTREMITIES: No evidence of edema, clubbing, or cyanosis. Carroll Fernandez MD Apr 26, 2019 23:44
[2019-04-27] VITALS: BP 112/65
--- NOTE | 2019-04-27 03:00 | NUR ---
NURSE NOTES: had 2 wu -lig bm complete bed oral care back care done
[2019-04-27 04:00] VITALS: BP 112/65
[2019-04-27] MEDS: Piperacillin/Tazobactam 3.375 GM in NS 110 ML IVPB SCH ×3 (05:34→22:20)
--- NOTE | 2019-04-27 07:54 | General Progress Note ---
Assessment/Plan Problem List: (1) Cirrhosis ICD Codes: K74.60 - Unspecified cirrhosis of liver SNOMED: 38177277 (2) Metabolic acidosis ICD Codes: E87.2 - Acidosis SNOMED: 58504913 (3) CHF (congestive heart failure), NYHA class IV ICD Codes: I50.9 - Heart failure, unspecified SNOMED: 063401096, 781088799 (4) SVT (supraventricular tachycardia) ICD Codes: I47.1 - Supraventricular tachycardia SNOMED: 1937576 (5) Elevated troponin (6) Anemia ICD Codes: D64.9 - Anemia, unspecified SNOMED: 569131767 (7) SOB (shortness of breath) ICD Codes: R06.02 - Shortness of breath SNOMED: 616634613 (8) A-fib ICD Codes: I48.91 - Unspecified atrial fibrillation SNOMED: 71182435 (9) Gastric cancer ICD Codes: C16.9 - Malignant neoplasm of stomach, unspecified SNOMED: 502446548 (10) Paroxysmal a-fib ICD Codes: I48.0 - Paroxysmal a-fib SNOMED: 788212200 Status: stable, progressing Assessment/Plan: tele iv diuretics per cards gi eval appreciated monitor ammonia level lactulose o2 resp rx ct abd pending reviewed pt/ot Subjective ROS Limited/Unobtainable: No Constitutional: Reports: malaise, weakness HEENT: Reports: no symptoms Cardiovascular: Reports: no symptoms Respiratory: Reports: cough Gastrointestinal/Abdominal: Reports: diarrhea Genitourinary: Reports: no symptoms Neurologic/Psychiatric: Reports: depressed Endocrine: Reports: no symptoms Hematologic/Lymphatic: Reports: no symptoms Allergies: Coded Allergies: CODEINE (Verified Allergy, Unknown, 06/17/18) All Systems: reviewed and negative except above Subjective c/o diarrhea. had 7 beats vtach yesterday. better after receiving mag. Objective Last 24 Hour Vital Signs Date Time Temp Pulse Resp B/P (MAP) Pulse Ox O2 Delivery O2 Flow Rate FiO2 04/27/19 04:00 Nasal Cannula 2.0 04/27/19 04:00 97.7 85 18 112/65 (81) 96 04/27/19 03:31 75 04/27/19 00:00 Nasal Cannula 2.0 04/27/19 00:00 97.7 85 18 112/65 (81) 96 04/26/19 23:20 67 04/26/19 20:45 75 133/62 04/26/19 20:13 96 Nasal Cannula 2.0 28 04/26/19 20:00 Nasal Cannula 2.0 04/26/19 20:00 72 04/26/19 20:00 97.7 65 18 104/64 (77) 96 04/26/19 16:00 75 04/26/19 16:00 Nasal Cannula 2.0 04/26/19 16:00 98.0 86 20 133/62 (85) 95 04/26/19 12:00 80 04/26/19 12:00 97.2 86 21 124/74 (91) 96 04/26/19 12:00 Nasal Cannula 2.0 04/26/19 09:45 Nasal Cannula 2.0 04/26/19 08:38 91 04/26/19 08:38 91 112/57 04/26/19 08:00 85 04/26/19 08:00 Nasal Cannula 2.0 04/26/19 08:00 98.7 91 20 112/57 (75) 100 Intake and Output 04/26/19 04/27/19 19:00 07:00 Intake Total 410.0 ml 845.000 ml Output Total 475 ml 500 ml Balance -65.0 ml 345.000 ml Intake Oral 300 ml 240 ml IV Total 110.0 ml 605.000 ml Output Urine Total 475 ml 500 ml # Bowel Movements 3 2 Laboratory Tests 04/26/19 11:20: Stool Occult Blood Negative 04/27/19 04:00: Magnesium Level 1.9 Height (Feet): 5 Height (Inches): 4.00 Weight (Pounds): 150 General Appearance: WD/WN, alert Neck: supple Cardiovascular: normal rate, regular rhythm Respiratory/Chest: chest wall non-tender, lungs clear, normal breath sounds, no respiratory distress Abdomen: normal bowel sounds, non tender, soft, no organomegaly Edema: no edema noted Arm (L), no edema noted Arm (R), no edema noted Leg (L), no edema noted Leg (R), no edema noted Pedal (L), no edema noted Pedal (R), no edema noted Generalized Neurologic: 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
[2019-04-27 08:00] VITALS: BP 121/67
--- NOTE | 2019-04-27 08:00 | NUR ---
NURSE NOTES: received pt in the bed, awake, alert, oriented, vital signs stable, no co pain, no SOB, skin warm and dry to touch, intact, TLC on RT IJ, dressing dry and intact, Alarcon catheter with yellow urine, tolerate diet well, bed in low position, call light within reach.
[2019-04-27 08:22] LABS: ALANINE AMINOTRANSFERASE 48 U/L (12-78); ALBUMIN 2.5 G/DL (3.4-5.0); ALBUMIN/GLOBULIN RATIO 0.6 (1.0-2.7); ALKALINE PHOSPHATASE 69 U/L (46-116); ANION GAP 4 mmol/L (5-15); ASPARTATE AMINO TRANSFERASE 63 U/L (15-37); BILIRUBIN,TOTAL 2.1 MG/DL (0.2-1.0); BLOOD UREA NITROGEN 19 mg/dL (7-18); CALCIUM 7.9 MG/DL (8.5-10.1); CARBON DIOXIDE 27 MMOL/L (21-32); CHLORIDE 107 MMOL/L (98-107); CREATININE 0.9 MG/DL (0.55-1.30); POTASSIUM 3.5 MMOL/L (3.5-5.1); SODIUM 138 MMOL/L (136-145)
[2019-04-27 08:23] LABS: BILIRUBIN,DIRECT 1.1 MG/DL (0.0-0.3)
[2019-04-27] MEDS: Sucralfate 1gm tab ORAL SCH (08:41)
[2019-04-27] MEDS: Spironolactone 25mg tab ORAL SCH (08:41)
[2019-04-27] MEDS: Carvedilol 6.25mg Tab ORAL SCH ×2 (08:42→20:39)
[2019-04-27] MEDS: Digoxin 0.125mg tab ORAL SCH (08:42)
[2019-04-27] MEDS: Lactulose 20gm/30ml UDC ORAL SCH ×2 (08:42→18:38)
[2019-04-27 09:08] LABS: HEMOGLOBIN 10.8 G/DL (12.0-16.0); MEAN CORPUSCULAR VOLUME 100 FL (80-99); PLATELET COUNT 83 K/UL (150-450); RED BLOOD COUNT 3.39 M/UL (4.20-5.40); RED CELL DISTRIBUTION WIDTH 15.4 % (11.6-14.8); WHITE BLOOD COUNT 5.6 K/UL (4.8-10.8)
[2019-04-27 12:00] VITALS: BP 115/57
--- NOTE | 2019-04-27 13:00 | NUR ---
NURSE NOTES: pt resting, vital signs stable, no co pain, continue monitoring.
[2019-04-27] MEDS ORDERED: NS 275ml ONE (15:38)
[2019-04-27] MEDS ORDERED: Tubing IV Secondary IV ONE (15:38)
--- NOTE | 2019-04-27 15:57 | Surgery Progress Note ---
Surgery Progress Note Subjective Procedure Performed right internal jugular central venous catheter insertion with ultrasound guidance 81898-44 (ultrasound guidance) Additional Comments no acute events comfortable stable. Objective Last 24 Hour Vital Signs Date Time Temp Pulse Resp B/P (MAP) Pulse Ox O2 Delivery O2 Flow Rate FiO2 04/27/19 12:00 Nasal Cannula 2.0 04/27/19 12:00 71 04/27/19 12:00 97.5 83 18 115/57 (76) 98 04/27/19 08:42 73 121/67 04/27/19 08:42 73 04/27/19 08:00 97.7 73 20 121/67 (85) 96 04/27/19 08:00 Nasal Cannula 2.0 04/27/19 08:00 79 04/27/19 04:00 Nasal Cannula 2.0 04/27/19 04:00 97.7 85 18 112/65 (81) 96 04/27/19 03:31 75 04/27/19 00:00 Nasal Cannula 2.0 04/27/19 00:00 97.7 85 18 112/65 (81) 96 04/26/19 23:20 67 04/26/19 20:45 75 133/62 04/26/19 20:13 96 Nasal Cannula 2.0 28 04/26/19 20:00 Nasal Cannula 2.0 04/26/19 20:00 72 04/26/19 20:00 97.7 65 18 104/64 (77) 96 04/26/19 16:00 75 04/26/19 16:00 Nasal Cannula 2.0 04/26/19 16:00 98.0 86 20 133/62 (85) 95 I&O Intake and Output 04/26/19 04/27/19 19:00 07:00 Intake Total 410.0 ml 845.000 ml Output Total 475 ml 500 ml Balance -65.0 ml 345.000 ml Intake Oral 300 ml 240 ml IV Total 110.0 ml 605.000 ml Output Urine Total 475 ml 500 ml # Bowel Movements 3 2 Dressing: dry Wound: clean Cardiovascular: RSR Respiratory: clear Abdomen: non-tender, present bowel sounds, non-distended Extremities: no edema, no tenderness, no cyanosis Laboratory Tests Test 04/27/19 04:00 04/27/19 04:10 04/27/19 08:30 Magnesium Level 1.9 MG/DL (1.8-2.4) Sodium Level 138 MMOL/L (136-145) Potassium Level 3.5 MMOL/L (3.5-5.1) Chloride Level 107 MMOL/L (98-107) Carbon Dioxide Level 27 MMOL/L (21-32) Anion Gap 4 mmol/L (5-15) L Blood Urea Nitrogen 19 mg/dL (7-18) H Creatinine 0.9 MG/DL (0.55-1.30) Estimat Glomerular Filtration Rate mL/min (>60) Glucose Level 146 MG/DL (74-106) H Calcium Level 7.9 MG/DL (8.5-10.1) L Total Bilirubin 2.1 MG/DL (0.2-1.0) H Direct Bilirubin 1.1 MG/DL (0.0-0.3) H Aspartate Amino Transf (AST/SGOT) 63 U/L (15-37) H Alanine Aminotransferase (ALT/SGPT) 48 U/L (12-78) Alkaline Phosphatase 69 U/L (46-116) Total Protein 6.7 G/DL (6.4-8.2) Albumin 2.5 G/DL (3.4-5.0) L Globulin 4.2 g/dL Albumin/Globulin Ratio 0.6 (1.0-2.7) L White Blood Count 5.6 K/UL (4.8-10.8) Red Blood Count 3.39 M/UL (4.20-5.40) L Hemoglobin 10.8 G/DL (12.0-16.0) L Hematocrit 34.0 % (37.0-47.0) L Mean Corpuscular Volume 100 FL (80-99) H Mean Corpuscular Hemoglobin 31.9 PG (27.0-31.0) H Mean Corpuscular Hemoglobin Concent 31.7 G/DL (32.0-36.0) L Red Cell Distribution Width 15.4 % (11.6-14.8) H Platelet Count 83 K/UL (150-450) L Mean Platelet Volume 9.9 FL (6.5-10.1) Neutrophils (%) (Auto) % (45.0-75.0) Lymphocytes (%) (Auto) % (20.0-45.0) Monocytes (%) (Auto) % (1.0-10.0) Eosinophils (%) (Auto) % (0.0-3.0) Basophils (%) (Auto) % (0.0-2.0) Differential Total Cells Counted 100 Neutrophils % (Manual) 70 % (45-75) Lymphocytes % (Manual) 14 % (20-45) L Monocytes % (Manual) 15 % (1-10) H Eosinophils % (Manual) 1 % (0-3) Basophils % (Manual) 0 % (0-2) Band Neutrophils 0 % (0-8) Platelet Estimate Decreased L Platelet Morphology Normal Hypochromasia 1+ Anisocytosis 1+ Macrocytosis 1+ Plan Problems: (1) Abdominal pain Assessment & Plan: 83 F with abdominal pain. no n/v. overall decompensated dehydrated will need IV fluids no IV access obtained at this time by multiple nurse attempts see note CT findings with Impression: Anasarca, with diffuse edema of the subcutaneous, mesenteric, abdominal fat, also demonstrated on the prior exam. There is also pleural and peritoneal fluid As mentioned above, bilateral pleural effusions. Increased on the right, similar to the prior exam on the left. Resultant basilar compressive atelectatic changes Cardiomegaly and pacemaker Questionable wall thickening of the distal descending colon. Possibly on the basis of generalized edema, colitis possible Bilateral renal cysts. bowel regimen trend labs appreciate GI input. pending serology thank you will follow with recs (2) Lactic acid acidosis Assessment & Plan: resolved (3) SOB (shortness of breath) Remi Lindquist Apr 27, 2019 15:57
[2019-04-27 16:00] VITALS: BP 128/70
--- NOTE | 2019-04-27 18:41 | Diagnostic Imaging Report ---
APPROVED REPORT CPT Code: 97960 Present Symptoms Comments: BILATERAL LEGS PAIN. BILATERAL: Imaging reveals a patent deep venous system bilaterally. There is no evidence of thrombus within the femoral, popliteal or tibial segments. The greater saphenous veins are also within normal limits. Doppler indicates normal spontaneous flow within these segments.
--- NOTE | 2019-04-27 19:04 | NUR ---
HAND-OFF: Report given to KHURRAM MONTOYA.
--- NOTE | 2019-04-27 19:05 | NUR ---
NURSE NOTES: Report Received from Melisa Elizabeth RN. Observed pt lying in the bed. A/O x4, denies any pain. Afib with HR of 85 noted on classroom monitor. On 2L O2 without any SOB. F/C intact and draining well. IV on R IJ, TKO. ABD soft, round, and non-tender. Bed in the lowest position. Side rails up x3. Call light within reach. Will continue to monitor.
[2019-04-27 20:00] VITALS: BP 130/80
[2019-04-27] MEDS: Dyna-Hex 2% Top Sol 2oz TOPIC SCH (20:39)
--- NOTE | 2019-04-27 22:47 | General Progress Note ---
Assessment/Plan Status: stable, progressing Assessment/Plan: Assessment - abdominal pain, improved - urinary retention - Thickened colon on CT - Doubt significance - cirrhosis - CM/CHF/ICD - coagulopathy - Anasarca - Poor Px Recommendations - Xifaxan - lactulose - check AFP - check HBV, HCV - advance po diet Subjective Allergies: Coded Allergies: CODEINE (Verified Allergy, Unknown, 06/17/18) Subjective Above noted flanagan left in place feels OK some shoulder pain some flank pain (+) BM Objective Last 24 Hour Vital Signs Date Time Temp Pulse Resp B/P (MAP) Pulse Ox O2 Delivery O2 Flow Rate FiO2 04/27/19 20:39 85 130/80 04/27/19 20:00 97.7 85 18 130/80 (97) 95 04/27/19 20:00 Nasal Cannula 2.0 04/27/19 20:00 73 04/27/19 16:00 Nasal Cannula 2.0 04/27/19 16:00 97.3 83 16 128/70 (89) 98 04/27/19 16:00 70 04/27/19 12:00 Nasal Cannula 2.0 04/27/19 12:00 71 04/27/19 12:00 97.5 83 18 115/57 (76) 98 04/27/19 08:42 73 121/67 04/27/19 08:42 73 04/27/19 08:00 97.7 73 20 121/67 (85) 96 04/27/19 08:00 Nasal Cannula 2.0 04/27/19 08:00 79 04/27/19 04:00 Nasal Cannula 2.0 04/27/19 04:00 97.7 85 18 112/65 (81) 96 04/27/19 03:31 75 04/27/19 00:00 Nasal Cannula 2.0 04/27/19 00:00 97.7 85 18 112/65 (81) 96 04/26/19 23:20 67 Intake and Output 04/26/19 04/27/19 18:59 06:59 Intake Total 437.5 ml 845.000 ml Output Total 475 ml 500 ml Balance -37.5 ml 345.000 ml Intake Oral 300 ml 240 ml IV Total 137.5 ml 605.000 ml Output Urine Total 475 ml 500 ml # Bowel Movements 3 2 Laboratory Tests 04/27/19 04:00: Magnesium Level 1.9 04/27/19 04:10: Sodium Level 138, Potassium Level 3.5, Chloride Level 107, Carbon Dioxide Level 27, Anion Gap 4L, Blood Urea Nitrogen 19H, Creatinine 0.9, Estimat Glomerular Filtration Rate , Glucose Level 146H, Calcium Level 7.9L, Total Bilirubin 2.1H, Direct Bilirubin 1.1H, Aspartate Amino Transf (AST/SGOT) 63H, Alanine Aminotransferase (ALT/SGPT) 48, Alkaline Phosphatase 69, Total Protein 6.7, Albumin 2.5L, Globulin 4.2, Albumin/Globulin Ratio 0.6L 04/27/19 08:30: White Blood Count 5.6, Red Blood Count 3.39L, Hemoglobin 10.8L, Hematocrit 34.0L , Mean Corpuscular Volume 100H, Mean Corpuscular Hemoglobin 31.9H, Mean Corpuscular Hemoglobin Concent 31.7L, Red Cell Distribution Width 15.4H, Platelet Count 83L, Mean Platelet Volume 9.9, Neutrophils (%) (Auto) , Lymphocytes (%) (Auto) , Monocytes (%) (Auto) , Eosinophils (%) (Auto) , Basophils (%) (Auto) , Differential Total Cells Counted 100, Neutrophils % ( Manual) 70, Lymphocytes % (Manual) 14L, Monocytes % (Manual) 15H, Eosinophils % (Manual) 1, Basophils % (Manual) 0, Band Neutrophils 0, Platelet Estimate DecreasedL, Platelet Morphology Normal, Hypochromasia 1+, Anisocytosis 1+, Macrocytosis 1+ Height (Feet): 5 Height (Inches): 4.00 Weight (Pounds): 150 Objective Debilitated AA woman NCAT supple CTA RR abd soft, (+) edema ext (+) edema Mauro Stephenson MD Apr 27, 2019 22:47
[2019-04-28] VITALS: BP 115/78
--- NOTE | 2019-04-28 01:00 | NUR ---
NURSE NOTES: Observed pt watching tv. No signs of pain noted. Afib with HR of 80 noted. On 2L O2 with no signs of sob. Reposition done. Bath given. Will continue to monitor.
[2019-04-28 04:00] VITALS: BP 132/72
[2019-04-28] MEDS: Piperacillin/Tazobactam 3.375 GM in NS 110 ML IVPB SCH ×2 (05:26→14:36)
[2019-04-28 05:30] LABS: ALANINE AMINOTRANSFERASE 42 U/L (12-78); ALBUMIN 2.5 G/DL (3.4-5.0); ALBUMIN/GLOBULIN RATIO 0.6 (1.0-2.7); ALKALINE PHOSPHATASE 64 U/L (46-116); ANION GAP 7 mmol/L (5-15); ASPARTATE AMINO TRANSFERASE 46 U/L (15-37); BILIRUBIN,TOTAL 1.8 MG/DL (0.2-1.0); BLOOD UREA NITROGEN 17 mg/dL (7-18); CALCIUM 7.6 MG/DL (8.5-10.1); CARBON DIOXIDE 26 MMOL/L (21-32); CHLORIDE 112 MMOL/L (98-107); CREATININE 0.8 MG/DL (0.55-1.30); POTASSIUM 3.5 MMOL/L (3.5-5.1); SODIUM 145 MMOL/L (136-145)
--- NOTE | 2019-04-28 07:08 | NUR ---
HAND-OFF: Report given to JAN Buenrostro. No acute distress noted at this time.
--- NOTE | 2019-04-28 07:35 | NUR ---
NURSE NOTES: Received report from Mary Jo Stahl RN. Patient awake in bed, alert and oriented x 3, able to make needs known. Receiving O2 via nasal cannula @ 2L/min, respirations even and unlabored. Alarcon catheter patent and draining well. Right IJ TLC intact and asymptomatic, dressing clean and dry. Bed locked in lowest position with side rails up x 3. All needs attended to. Call light within reach. Will continue to monitor.
[2019-04-28 08:00] VITALS: BP 149/67
--- NOTE | 2019-04-28 08:13 | General Progress Note ---
Assessment/Plan Problem List: (1) Cirrhosis ICD Codes: K74.60 - Unspecified cirrhosis of liver SNOMED: 48812573 (2) Metabolic acidosis ICD Codes: E87.2 - Acidosis SNOMED: 16097813 (3) CHF (congestive heart failure), NYHA class IV ICD Codes: I50.9 - Heart failure, unspecified SNOMED: 777721221, 307462703 (4) SVT (supraventricular tachycardia) ICD Codes: I47.1 - Supraventricular tachycardia SNOMED: 4196332 (5) Elevated troponin (6) Anemia ICD Codes: D64.9 - Anemia, unspecified SNOMED: 548179017 (7) SOB (shortness of breath) ICD Codes: R06.02 - Shortness of breath SNOMED: 858901589 (8) A-fib ICD Codes: I48.91 - Unspecified atrial fibrillation SNOMED: 14040312 (9) Gastric cancer ICD Codes: C16.9 - Malignant neoplasm of stomach, unspecified SNOMED: 293142391 (10) Paroxysmal a-fib ICD Codes: I48.0 - Paroxysmal a-fib SNOMED: 160848048 Status: stable, progressing Assessment/Plan: transfer tele diuresis monitor ammonia level lactulose o2 resp rx pt/ot Subjective ROS Limited/Unobtainable: No Constitutional: Reports: malaise, weakness HEENT: Reports: no symptoms Cardiovascular: Reports: no symptoms Respiratory: Reports: cough, shortness of breath Gastrointestinal/Abdominal: Reports: no symptoms Genitourinary: Reports: no symptoms Neurologic/Psychiatric: Reports: anxiety, depressed Endocrine: Reports: no symptoms Hematologic/Lymphatic: Reports: no symptoms Allergies: Coded Allergies: CODEINE (Verified Allergy, Unknown, 06/17/18) All Systems: reviewed and negative except above Subjective no new complaints. stable sob. continues to feel "better." decreased sob. no cp Objective Last 24 Hour Vital Signs Date Time Temp Pulse Resp B/P (MAP) Pulse Ox O2 Delivery O2 Flow Rate FiO2 04/28/19 04:00 80 04/28/19 04:00 Nasal Cannula 2.0 04/28/19 04:00 98.4 76 18 132/72 (92) 100 04/28/19 00:00 97.7 85 20 115/78 (90) 97 04/28/19 00:00 Nasal Cannula 2.0 04/28/19 00:00 83 04/27/19 20:46 96 Nasal Cannula 2.0 28 04/27/19 20:39 85 130/80 04/27/19 20:00 97.7 85 18 130/80 (97) 95 04/27/19 20:00 Nasal Cannula 2.0 04/27/19 20:00 73 04/27/19 16:00 Nasal Cannula 2.0 04/27/19 16:00 97.3 83 16 128/70 (89) 98 04/27/19 16:00 70 04/27/19 12:00 Nasal Cannula 2.0 04/27/19 12:00 71 04/27/19 12:00 97.5 83 18 115/57 (76) 98 04/27/19 08:42 73 121/67 04/27/19 08:42 73 Intake and Output 04/27/19 04/28/19 19:00 07:00 Intake Total 110.0 ml 677.5 ml Output Total 850 ml Balance 110.0 ml -172.5 ml Intake Oral 540 ml IV Total 110.0 ml 137.5 ml Output Urine Total 850 ml # Bowel Movements 4 Laboratory Tests 04/27/19 08:30: White Blood Count 5.6, Red Blood Count 3.39L, Hemoglobin 10.8L, Hematocrit 34.0L , Mean Corpuscular Volume 100H, Mean Corpuscular Hemoglobin 31.9H, Mean Corpuscular Hemoglobin Concent 31.7L, Red Cell Distribution Width 15.4H, Platelet Count 83L, Mean Platelet Volume 9.9, Neutrophils (%) (Auto) , Lymphocytes (%) (Auto) , Monocytes (%) (Auto) , Eosinophils (%) (Auto) , Basophils (%) (Auto) , Differential Total Cells Counted 100, Neutrophils % ( Manual) 70, Lymphocytes % (Manual) 14L, Monocytes % (Manual) 15H, Eosinophils % (Manual) 1, Basophils % (Manual) 0, Band Neutrophils 0, Platelet Estimate DecreasedL, Platelet Morphology Normal, Hypochromasia 1+, Anisocytosis 1+, Macrocytosis 1+ 04/28/19 03:40: Sodium Level 145, Potassium Level 3.5, Chloride Level 112H, Carbon Dioxide Level 26, Anion Gap 7, Blood Urea Nitrogen 17, Creatinine 0.8, Estimat Glomerular Filtration Rate , Glucose Level 129H, Calcium Level 7.6L, Total Bilirubin 1.8H, Direct Bilirubin 1.0H, Aspartate Amino Transf (AST/SGOT) 46H, Alanine Aminotransferase (ALT/SGPT) 42, Alkaline Phosphatase 64, Total Protein 6.4, Albumin 2.5L, Globulin 3.9, Albumin/Globulin Ratio 0.6L, Digoxin Level 0.6L Height (Feet): 5 Height (Inches): 4.00 Weight (Pounds): 148 Objective General Appearance: WD/WN, alert Neck: supple Cardiovascular: normal rate, regular rhythm Respiratory/Chest: chest wall non-tender, lungs clear, normal breath sounds, no respiratory distress Abdomen: normal bowel sounds, non tender, soft, no organomegaly Edema: no edema noted Arm (L), no edema noted Arm (R), no edema noted Leg (L), no edema noted Leg (R), no edema noted Pedal (L), no edema noted Pedal (R), no edema noted Generalized Neurologic: machine grainer II-XII grossly normal, alert, oriented x 3, responsive Palomo Frankel MD Apr 28, 2019 08:13
[2019-04-28] MEDS: Lactulose 20gm/30ml UDC ORAL SCH ×2 (08:50→17:43)
[2019-04-28] MEDS: Sucralfate 1gm tab ORAL SCH (08:50)
[2019-04-28] MEDS: Carvedilol 6.25mg Tab ORAL SCH ×2 (08:51→20:37)
[2019-04-28] MEDS: Spironolactone 25mg tab ORAL SCH (08:51)
[2019-04-28] MEDS: Digoxin 0.125mg tab ORAL SCH (08:51)
--- NOTE | 2019-04-28 10:10 | CDS Physician Query ---
Clarification is required for compliance, coding accuracy, and to reflect severity of illness for this patient Dear Dr. Palomo Frankel Date: 04/28/2019 C2 Tactical Analysis Technician/CDS Name: Ana Elder Clinical Documentation States: HNP: 83-year-old female with a history of congestive heart failure, hypertension, atrial fibrillation, gastric carcinoma, admitted with complaints of shortness of breath and abdominal pain secondary to CHF 04/23 cardiology note: History of cardiomyopathy with left ventricular ejection fraction approximately 35%. Labs: BNP - 8[address] CT abd/pelvis: Bilateral pleural effusion Treatment: Spironolactone, digoxin, carvedilol Please Clarify: Acuity [] Acute [] Chronic [] Acute on Chronic Type [] Systolic [] Diastolic [] Systolic & Diastolic (Combined) [] Other: Present on Admission: [] Yes [] No [] Clinically Undetermined Physician signature Date Please also document in your Progress Notes and/or Discharge Summary and indicate if the condition was present on admission. RENAND
[2019-04-28 12:00] VITALS: BP 132/83
--- NOTE | 2019-04-28 15:32 | Surgery Progress Note ---
Surgery Progress Note Subjective Procedure Performed right internal jugular central venous catheter insertion with ultrasound guidance [id number] (ultrasound guidance) Symptoms: improved, tolerating diet, passing flatus Objective Last 24 Hour Vital Signs Date Time Temp Pulse Resp B/P (MAP) Pulse Ox O2 Delivery O2 Flow Rate FiO2 04/28/19 12:00 Nasal Cannula 2.0 04/28/19 12:00 97.2 84 20 132/83 (99) 100 04/28/19 11:43 79 04/28/19 08:51 75 149/67 04/28/19 08:51 75 04/28/19 08:00 97.7 75 20 149/67 (94) 99 04/28/19 08:00 Nasal Cannula 2.0 04/28/19 07:43 89 04/28/19 04:00 80 04/28/19 04:00 Nasal Cannula 2.0 04/28/19 04:00 98.4 76 18 132/72 (92) 100 04/28/19 00:00 97.7 85 20 115/78 (90) 97 04/28/19 00:00 Nasal Cannula 2.0 04/28/19 00:00 83 04/27/19 20:46 96 Nasal Cannula 2.0 28 04/27/19 20:39 85 130/80 04/27/19 20:00 97.7 85 18 130/80 (97) 95 04/27/19 20:00 Nasal Cannula 2.0 04/27/19 20:00 73 04/27/19 16:00 Nasal Cannula 2.0 04/27/19 16:00 97.3 83 16 128/70 (89) 98 04/27/19 16:00 70 I&O Intake and Output 04/27/19 04/28/19 19:00 07:00 Intake Total 110.0 ml 677.5 ml Output Total 850 ml Balance 110.0 ml -172.5 ml Intake Oral 540 ml IV Total 110.0 ml 137.5 ml Output Urine Total 850 ml # Bowel Movements 4 Dressing: dry Wound: clean Cardiovascular: RSR Respiratory: clear Abdomen: soft, flat, non-tender, present bowel sounds Extremities: no tenderness, no cyanosis Laboratory Tests Test 04/28/19 03:40 Sodium Level 145 MMOL/L (136-145) Potassium Level 3.5 MMOL/L (3.5-5.1) Chloride Level 112 MMOL/L (98-107) H Carbon Dioxide Level 26 MMOL/L (21-32) Anion Gap 7 mmol/L (5-15) Blood Urea Nitrogen 17 mg/dL (7-18) Creatinine 0.8 MG/DL (0.55-1.30) Estimat Glomerular Filtration Rate mL/min (>60) Glucose Level 129 MG/DL (74-106) H Calcium Level 7.6 MG/DL (8.5-10.1) L Total Bilirubin 1.8 MG/DL (0.2-1.0) H Direct Bilirubin 1.0 MG/DL (0.0-0.3) H Aspartate Amino Transf (AST/SGOT) 46 U/L (15-37) H Alanine Aminotransferase (ALT/SGPT) 42 U/L (12-78) Alkaline Phosphatase 64 U/L (46-116) Total Protein 6.4 G/DL (6.4-8.2) Albumin 2.5 G/DL (3.4-5.0) L Globulin 3.9 g/dL Albumin/Globulin Ratio 0.6 (1.0-2.7) L Digoxin Level 0.6 NG/ML (0.9-2.0) L Plan Problems: (1) Abdominal pain Assessment & Plan: 83 F with abdominal pain. no n/v. overall decompensated dehydrated will need IV fluids no IV access obtained at this time by multiple nurse attempts see note CT findings with Impression: Anasarca, with diffuse edema of the subcutaneous, mesenteric, abdominal fat, also demonstrated on the prior exam. There is also pleural and peritoneal fluid As mentioned above, bilateral pleural effusions. Increased on the right, similar to the prior exam on the left. Resultant basilar compressive atelectatic changes Cardiomegaly and pacemaker Questionable wall thickening of the distal descending colon. Possibly on the basis of generalized edema, colitis possible Bilateral renal cysts. bowel regimen trend labs appreciate GI input. pending serology thank you will follow with recs (2) Lactic acid acidosis Assessment & Plan: resolved (3) SOB (shortness of breath) Remi Lindquist Apr 28, 2019 15:32
[2019-04-28 16:00] VITALS: BP 142/81
--- NOTE | 2019-04-28 19:10 | NUR ---
NURSE NOTES: Received report from Chitra MONTOYA, pt in bed awake, able to make needs known, A/O x's3-4. arabic translator on- no cardiac or respiratory distress noted, bed in lowest position and call light within easy reach, bed alarm on, side rails up x's3 and safety brakes engaged, pt. appears to be tolerating current NC settings at 2L- no distress noted, pt. appears to be clean and dry, comfort measures provided, RT. IJ TLC Intact and patent, safety measures continued, will continue with plan of care.
--- NOTE | 2019-04-28 19:15 | NUR ---
HAND-OFF: Report given to Aubrey Garvin RN.
[2019-04-28 20:00] VITALS: BP 143/85
--- NOTE | 2019-04-28 20:15 | Cardiology Progress Note ---
Assessment/Plan Assessment/Plan 1. Persistent atrial fibrillation with controlled ventricular response, continue carvedilol and digoxin. Anticoagulation is contraindicated in view of hx of GI bleed, anemia and gastric cancer. 2. History of cardiomyopathy with left ventricular ejection fraction approximately 25%. 3. Status post AICD pacemaker implantation. 4. History of nonsustained ventricular tachycardia, Mg level at 1.9. 5. History of gastric cancer. 6. History of anemia, iron deficiency, most likely due to gastrointestinal bleed. 7. CKD. 8. Liver cirrhosis Subjective Subjective Atrial fibrillation with CVR at 87. Objective Last 24 Hour Vital Signs Date Time Temp Pulse Resp B/P (MAP) Pulse Ox O2 Delivery O2 Flow Rate FiO2 04/28/19 16:00 97.0 87 20 142/81 (101) 98 04/28/19 16:00 84 04/28/19 16:00 Nasal Cannula 2.0 04/28/19 12:00 Nasal Cannula 2.0 04/28/19 12:00 97.2 84 20 132/83 (99) 100 04/28/19 11:43 79 04/28/19 08:51 75 149/67 04/28/19 08:51 75 04/28/19 08:00 97.7 75 20 149/67 (94) 99 04/28/19 08:00 Nasal Cannula 2.0 04/28/19 07:43 89 04/28/19 04:00 80 04/28/19 04:00 Nasal Cannula 2.0 04/28/19 04:00 98.4 76 18 132/72 (92) 100 04/28/19 00:00 97.7 85 20 115/78 (90) 97 04/28/19 00:00 Nasal Cannula 2.0 04/28/19 00:00 83 04/27/19 20:46 96 Nasal Cannula 2.0 28 04/27/19 20:39 85 130/80 Intake and Output 04/27/19 04/28/19 19:00 07:00 Intake Total 110.0 ml 677.5 ml Output Total 850 ml Balance 110.0 ml -172.5 ml Intake Oral 540 ml IV Total 110.0 ml 137.5 ml Output Urine Total 850 ml # Bowel Movements 4 2D Echo: EF 25%, Pseudo-normal LV physio., Mild KARRI/RVE, pleural eff.,RVSP 53, RAP 15 Laboratory Tests Test 04/28/19 03:40 04/28/19 19:30 Sodium Level 145 MMOL/L (136-145) Potassium Level 3.5 MMOL/L (3.5-5.1) Chloride Level 112 MMOL/L (98-107) H Carbon Dioxide Level 26 MMOL/L (21-32) Anion Gap 7 mmol/L (5-15) Blood Urea Nitrogen 17 mg/dL (7-18) Creatinine 0.8 MG/DL (0.55-1.30) Estimat Glomerular Filtration Rate mL/min (>60) Glucose Level 129 MG/DL (74-106) H Calcium Level 7.6 MG/DL (8.5-10.1) L Total Bilirubin 1.8 MG/DL (0.2-1.0) H Direct Bilirubin 1.0 MG/DL (0.0-0.3) H Aspartate Amino Transf (AST/SGOT) 46 U/L (15-37) H Alanine Aminotransferase (ALT/SGPT) 42 U/L (12-78) Alkaline Phosphatase 64 U/L (46-116) Total Protein 6.4 G/DL (6.4-8.2) Albumin 2.5 G/DL (3.4-5.0) L Globulin 3.9 g/dL Albumin/Globulin Ratio 0.6 (1.0-2.7) L Digoxin Level 0.6 NG/ML (0.9-2.0) L Vancomycin Level Trough Pending Objective HEENT: Atraumatic and normocephalic. Anicteric. Pupils are equal, round, and reactive to light and accommodation. Conjunctival pallor is present. NECK: JVP elevated about 15 centimeter. No carotid bruit. Carotid upstrokes 2+ bilaterally. CARDIOVASCULAR: Normal S1 and S2. Irregularly irregular rhythm. Cannot appreciate any murmurs, gallops, or rubs. LUNGS: Clear to auscultation bilaterally. ABDOMEN: Soft, nontender, and nondistended. No hepatosplenomegaly. Positive bowel sounds. Scar of surgery in the left midline vertical line, parallel to midline. EXTREMITIES: No evidence of edema, clubbing, or cyanosis. Carroll Fernandez MD Apr 28, 2019 20:15
[2019-04-28] MEDS: Dyna-Hex 2% Top Sol 2oz TOPIC SCH (20:36)
[2019-04-28] MEDS: Vancomycin 1.25gm Premix IVPB SCH (20:41)
--- NOTE | 2019-04-28 21:54 | General Progress Note ---
Assessment/Plan Status: stable, progressing Assessment/Plan: Assessment - abdominal pain, improved - urinary retention - Thickened colon on CT - Doubt significance - cirrhosis - CM/CHF/ICD - coagulopathy - Anasarca - Poor Px Recommendations - Xifaxan - lactulose - check AFP--> normal - check HBV, HCV - po diet as tolerated Subjective Allergies: Coded Allergies: CODEINE (Verified Allergy, Unknown, 06/17/18) Subjective Above noted tolerating PO (+) BM Objective Last 24 Hour Vital Signs Date Time Temp Pulse Resp B/P (MAP) Pulse Ox O2 Delivery O2 Flow Rate FiO2 04/28/19 20:37 79 143/85 04/28/19 16:00 97.0 87 20 142/81 (101) 98 04/28/19 16:00 84 04/28/19 16:00 Nasal Cannula 2.0 04/28/19 12:00 Nasal Cannula 2.0 04/28/19 12:00 97.2 84 20 132/83 (99) 100 04/28/19 11:43 79 04/28/19 08:51 75 149/67 04/28/19 08:51 75 04/28/19 08:00 97.7 75 20 149/67 (94) 99 04/28/19 08:00 Nasal Cannula 2.0 04/28/19 07:43 89 04/28/19 04:00 80 04/28/19 04:00 Nasal Cannula 2.0 04/28/19 04:00 98.4 76 18 132/72 (92) 100 04/28/19 00:00 97.7 85 20 115/78 (90) 97 04/28/19 00:00 Nasal Cannula 2.0 04/28/19 00:00 83 Intake and Output 04/27/19 04/28/19 19:00 07:00 Intake Total 110.0 ml 677.5 ml Output Total 850 ml Balance 110.0 ml -172.5 ml Intake Oral 540 ml IV Total 110.0 ml 137.5 ml Output Urine Total 850 ml # Bowel Movements 4 Laboratory Tests 04/28/19 03:40: Sodium Level 145, Potassium Level 3.5, Chloride Level 112H, Carbon Dioxide Level 26, Anion Gap 7, Blood Urea Nitrogen 17, Creatinine 0.8, Estimat Glomerular Filtration Rate , Glucose Level 129H, Calcium Level 7.6L, Total Bilirubin 1.8H, Direct Bilirubin 1.0H, Aspartate Amino Transf (AST/SGOT) 46H, Alanine Aminotransferase (ALT/SGPT) 42, Alkaline Phosphatase 64, Total Protein 6.4, Albumin 2.5L, Globulin 3.9, Albumin/Globulin Ratio 0.6L, Digoxin Level 0.6L 04/28/19 19:30: Vancomycin Level Trough 4.6L Height (Feet): 5 Height (Inches): 4.00 Weight (Pounds): 148 Objective Debilitated AA woman NCAT supple CTA RR abd soft, (+) edema ext (+) edema Mauro Stephenson MD Apr 28, 2019 21:54
[2019-04-28] MEDS ORDERED: Vancomycin 1.25gm Premix IVPB SCH (22:00)
[2019-04-29] VITALS: BP 133/79
[2019-04-29 04:00] VITALS: BP 138/76
[2019-04-29 04:58] LABS: HEMATOCRIT 38.8 % (37.0-47.0); HEMOGLOBIN 11.8 G/DL (12.0-16.0); MEAN CORPUSCULAR VOLUME 105 FL (80-99); PLATELET COUNT 76 K/UL (150-450); RED BLOOD COUNT 3.71 M/UL (4.20-5.40); RED CELL DISTRIBUTION WIDTH 16.6 % (11.6-14.8); WHITE BLOOD COUNT 7.6 K/UL (4.8-10.8)
[2019-04-29 05:08] LABS: ALANINE AMINOTRANSFERASE 39 U/L (12-78); ALBUMIN 3.1 G/DL (3.4-5.0); ALBUMIN/GLOBULIN RATIO 0.6 (1.0-2.7); ALKALINE PHOSPHATASE 81 U/L (46-116); ANION GAP 7 mmol/L (5-15); ASPARTATE AMINO TRANSFERASE 47 U/L (15-37); BILIRUBIN,TOTAL 2.4 MG/DL (0.2-1.0); BLOOD UREA NITROGEN 15 mg/dL (7-18); CALCIUM 8.7 MG/DL (8.5-10.1); CARBON DIOXIDE 25 MMOL/L (21-32); CHLORIDE 109 MMOL/L (98-107); CREATININE 0.8 MG/DL (0.55-1.30); POTASSIUM 4.2 MMOL/L (3.5-5.1); SODIUM 141 MMOL/L (136-145)
[2019-04-29 05:28] LABS: BILIRUBIN,DIRECT 0.8 MG/DL (0.0-0.3)
--- NOTE | 2019-04-29 06:59 | NUR ---
HAND-OFF: Report given to Chitra MONTOYA, pt. remains stable and no signs of distress noted.
--- NOTE | 2019-04-29 07:20 | NUR ---
NURSE NOTES: Received report from Aubrey Garvin RN. Patient asleep in bed, opens eyes spontaneously, able to make needs known. Receiving O2 via nasal cannula @ 2L/min, no s/s of respiratory distress noted. Alarcon catheter patent and draining well. Right IJ TLC intact and asymptomatic, dressing clean and dry. Bed locked in lowest position with side rails up x 3. All needs attended to. Call light within reach. Will continue to monitor.
[2019-04-29 08:00] VITALS: BP 142/99
--- NOTE | 2019-04-29 08:19 | General Progress Note ---
Assessment/Plan Problem List: (1) Cirrhosis ICD Codes: K74.60 - Unspecified cirrhosis of liver SNOMED: 30984533 (2) Metabolic acidosis ICD Codes: E87.2 - Acidosis SNOMED: 70339089 (3) CHF (congestive heart failure), NYHA class IV ICD Codes: I50.9 - Heart failure, unspecified SNOMED: 680580567, 309426325 (4) SVT (supraventricular tachycardia) ICD Codes: I47.1 - Supraventricular tachycardia SNOMED: 5973366 (5) Elevated troponin (6) Anemia ICD Codes: D64.9 - Anemia, unspecified SNOMED: 539675078 (7) SOB (shortness of breath) ICD Codes: R06.02 - Shortness of breath SNOMED: 748885596 (8) A-fib ICD Codes: I48.91 - Unspecified atrial fibrillation SNOMED: 35222459 (9) Gastric cancer ICD Codes: C16.9 - Malignant neoplasm of stomach, unspecified SNOMED: 266200554 (10) Paroxysmal a-fib ICD Codes: I48.0 - Paroxysmal a-fib SNOMED: 054050537 Status: stable, progressing Assessment/Plan: transfer tele diuresis with lasix repeat cxr may need to tap effusion monitor ammonia level lactulose o2 resp rx pt/ot Subjective ROS Limited/Unobtainable: No Constitutional: Reports: malaise, weakness HEENT: Reports: no symptoms Cardiovascular: Reports: no symptoms Respiratory: Reports: cough, shortness of breath Gastrointestinal/Abdominal: Reports: abdominal pain Genitourinary: Reports: no symptoms Neurologic/Psychiatric: Reports: anxiety, depressed Endocrine: Reports: no symptoms Hematologic/Lymphatic: Reports: anemia Allergies: Coded Allergies: CODEINE (Verified Allergy, Unknown, 06/17/18) All Systems: reviewed and negative except above Subjective feels worse today. more abd pain. +sob. arms hurt. labs noted. Objective Last 24 Hour Vital Signs Date Time Temp Pulse Resp B/P (MAP) Pulse Ox O2 Delivery O2 Flow Rate FiO2 04/29/19 08:00 97.3 89 22 142/99 (113) 99 04/29/19 08:00 2.0 04/29/19 04:00 91 04/29/19 04:00 2.0 04/29/19 04:00 Nasal Cannula 2.0 04/29/19 04:00 97.8 88 20 138/76 (96) 100 04/29/19 00:00 2.0 04/29/19 00:00 Nasal Cannula 2.0 04/29/19 00:00 97.6 87 20 133/79 (97) 99 04/29/19 00:00 83 04/28/19 20:37 79 143/85 04/28/19 20:00 2.0 04/28/19 20:00 88 04/28/19 20:00 Nasal Cannula 2.0 04/28/19 20:00 98.8 79 24 143/85 (104) 100 04/28/19 16:00 97.0 87 20 142/81 (101) 98 04/28/19 16:00 84 04/28/19 16:00 Nasal Cannula 2.0 04/28/19 12:00 Nasal Cannula 2.0 04/28/19 12:00 97.2 84 20 132/83 (99) 100 04/28/19 11:43 79 04/28/19 08:51 75 149/67 04/28/19 08:51 75 Intake and Output 04/28/19 04/29/19 19:00 07:00 Intake Total 792.5 ml 183.333 ml Output Total 300 ml 250 ml Balance 492.5 ml -66.667 ml Intake Oral 600 ml IV Total 192.5 ml 183.333 ml Output Urine Total 300 ml 250 ml # Bowel Movements 4 5 Laboratory Tests 04/28/19 19:30: Vancomycin Level Trough 4.6L 04/29/19 03:05: White Blood Count 7.6, Red Blood Count 3.71L, Hemoglobin 11.8L, Hematocrit 38.8 , Mean Corpuscular Volume 105H, Mean Corpuscular Hemoglobin 31.9H, Mean Corpuscular Hemoglobin Concent 30.5L, Red Cell Distribution Width 16.6H, Platelet Count 76L, Mean Platelet Volume 11.5H, Neutrophils (%) (Auto) , Lymphocytes (%) (Auto) , Monocytes (%) (Auto) , Eosinophils (%) (Auto) , Basophils (%) (Auto) , Differential Total Cells Counted 100, Neutrophils % ( Manual) 77H, Lymphocytes % (Manual) 8L, Monocytes % (Manual) 13H, Eosinophils % (Manual) 2, Basophils % (Manual) 0, Band Neutrophils 0, Platelet Estimate DecreasedL, Platelet Morphology Normal, Anisocytosis 1+, Macrocytosis 1+, Sodium Level 141, Potassium Level 4.2, Chloride Level 109H, Carbon Dioxide Level 25, Anion Gap 7, Blood Urea Nitrogen 15, Creatinine 0.8, Estimat Glomerular Filtration Rate , Glucose Level 132H, Calcium Level 8.7, Total Bilirubin 2.4H, Direct Bilirubin 0.8H, Aspartate Amino Transf (AST/SGOT) 47H, Alanine Aminotransferase (ALT/SGPT) 39, Alkaline Phosphatase 81, Total Protein 8.1, Albumin 3.1L, Globulin 5.0, Albumin/Globulin Ratio 0.6L Height (Feet): 5 Height (Inches): 4.00 Weight (Pounds): 147 Objective General Appearance: WD/WN, alert Neck: supple Cardiovascular: normal rate, regular rhythm Respiratory/Chest: chest wall non-tender, lungs clear, normal breath sounds, no respiratory distress Abdomen: normal bowel sounds, non tender, soft, no organomegaly Edema: no edema noted Arm (L), no edema noted Arm (R), no edema noted Leg (L), no edema noted Leg (R), no edema noted Pedal (L), no edema noted Pedal (R), no edema noted Generalized Neurologic: supervisor statement clerks II-XII grossly normal, alert, oriented x 3, responsive Palomo Frankel MD Apr 29, 2019 08:19
[2019-04-29] MEDS: Lactulose 20gm/30ml UDC ORAL SCH ×2 (08:59→17:41)
[2019-04-29] MEDS: Carvedilol 6.25mg Tab ORAL SCH ×2 (08:59→20:41)
[2019-04-29] MEDS: Sucralfate 1gm tab ORAL SCH (09:00)
[2019-04-29] MEDS: Spironolactone 25mg tab ORAL SCH (09:00)
[2019-04-29] MEDS: Digoxin 0.125mg tab ORAL SCH (09:00)
--- NOTE | 2019-04-29 11:52 | Diagnostic Imaging Report ---
Indication: Shortness of breath Technique: One view of the chest Comparison: 04/24/2018 Findings: . The demonstrated left pleural effusion appears smaller, with some residual. The lungs and pleural spaces are otherwise clear. The heart is enlarged. There is a left chest AICD again demonstrated, demonstrating for leads. There is also a right chest port catheter. Some wires project at the innominate venous confluence. Impression: Decreased left pleural effusion, over 5 days Other stable findings as described
[2019-04-29 12:00] VITALS: BP 130/78
--- NOTE | 2019-04-29 12:49 | NUR ---
CASE MANAGEMENT:REVIEW 04/29/19 SI: CIRRHOSIS. SVT. PAFIB ELEVATED TROPONIN 97.3 101 22 142/99 99% ON 2L/NC PLT-76 IS: IV VANCOMYCIN Q24 IV LASIX QD LACTULOSE PO BID COREG PO Q12 PROTONIX PO QD CARAFATE PO QD ALDACTONE PO QD DIGOXIN PO QD : STEP DOWN UNIT DCP: FROM HOME PLAN: DOWNGRADE TO TELEMETRY
--- NOTE | 2019-04-29 13:28 | General Progress Note ---
Assessment/Plan Status: stable, progressing Assessment/Plan: Assessment - abdominal pain, improved - urinary retention - Thickened colon on CT - Doubt significance - cirrhosis - CM/CHF/ICD - coagulopathy - Anasarca - Poor Px Recommendations - Xifaxan - lactulose - check AFP--> normal - check HBV, HCV - po diet as tolerated Subjective Allergies: Coded Allergies: CODEINE (Verified Allergy, Unknown, 06/17/18) Subjective Above noted tolerating PO feels better (+) flanagan (+) BM Objective Last 24 Hour Vital Signs Date Time Temp Pulse Resp B/P (MAP) Pulse Ox O2 Delivery O2 Flow Rate FiO2 04/29/19 12:00 2.0 04/29/19 12:00 Nasal Cannula 2.0 04/29/19 09:00 89 04/29/19 08:59 89 142/99 04/29/19 08:43 97 Nasal Cannula 2.0 28 04/29/19 08:00 97.3 89 22 142/99 (113) 99 04/29/19 08:00 Nasal Cannula 2.0 04/29/19 08:00 2.0 04/29/19 07:42 101 04/29/19 04:00 91 04/29/19 04:00 2.0 04/29/19 04:00 Nasal Cannula 2.0 04/29/19 04:00 97.8 88 20 138/76 (96) 100 04/29/19 00:00 2.0 04/29/19 00:00 Nasal Cannula 2.0 04/29/19 00:00 97.6 87 20 133/79 (97) 99 04/29/19 00:00 83 04/28/19 20:37 79 143/85 04/28/19 20:00 2.0 04/28/19 20:00 88 04/28/19 20:00 Nasal Cannula 2.0 04/28/19 20:00 98.8 79 24 143/85 (104) 100 04/28/19 16:00 97.0 87 20 142/81 (101) 98 04/28/19 16:00 84 04/28/19 16:00 Nasal Cannula 2.0 Intake and Output 04/28/19 04/29/19 19:00 07:00 Intake Total 792.5 ml 183.333 ml Output Total 300 ml 250 ml Balance 492.5 ml -66.667 ml Intake Oral 600 ml IV Total 192.5 ml 183.333 ml Output Urine Total 300 ml 250 ml # Bowel Movements 4 5 Laboratory Tests 04/28/19 19:30: Vancomycin Level Trough 4.6L 04/29/19 03:05: White Blood Count 7.6, Red Blood Count 3.71L, Hemoglobin 11.8L, Hematocrit 38.8 , Mean Corpuscular Volume 105H, Mean Corpuscular Hemoglobin 31.9H, Mean Corpuscular Hemoglobin Concent 30.5L, Red Cell Distribution Width 16.6H, Platelet Count 76L, Mean Platelet Volume 11.5H, Neutrophils (%) (Auto) , Lymphocytes (%) (Auto) , Monocytes (%) (Auto) , Eosinophils (%) (Auto) , Basophils (%) (Auto) , Differential Total Cells Counted 100, Neutrophils % ( Manual) 77H, Lymphocytes % (Manual) 8L, Monocytes % (Manual) 13H, Eosinophils % (Manual) 2, Basophils % (Manual) 0, Band Neutrophils 0, Platelet Estimate DecreasedL, Platelet Morphology Normal, Anisocytosis 1+, Macrocytosis 1+, Sodium Level 141, Potassium Level 4.2, Chloride Level 109H, Carbon Dioxide Level 25, Anion Gap 7, Blood Urea Nitrogen 15, Creatinine 0.8, Estimat Glomerular Filtration Rate , Glucose Level 132H, Calcium Level 8.7, Total Bilirubin 2.4H, Direct Bilirubin 0.8H, Aspartate Amino Transf (AST/SGOT) 47H, Alanine Aminotransferase (ALT/SGPT) 39, Alkaline Phosphatase 81, Total Protein 8.1, Albumin 3.1L, Globulin 5.0, Albumin/Globulin Ratio 0.6L Height (Feet): 5 Height (Inches): 4.00 Weight (Pounds): 147 Objective Debilitated AA woman NCAT supple CTA RR abd soft, (+) edema ext (+) edema Mauro Stephenson MD Apr 29, 2019 13:28
--- NOTE | 2019-04-29 14:40 | Surgery Progress Note ---
Surgery Progress Note Subjective Procedure Performed right internal jugular central venous catheter insertion with ultrasound guidance 13664-09 (ultrasound guidance) Additional Comments no acute events exam stable labs noted Objective Last 24 Hour Vital Signs Date Time Temp Pulse Resp B/P (MAP) Pulse Ox O2 Delivery O2 Flow Rate FiO2 04/29/19 12:00 2.0 04/29/19 12:00 Nasal Cannula 2.0 04/29/19 09:00 89 04/29/19 08:59 89 142/99 04/29/19 08:43 97 Nasal Cannula 2.0 28 04/29/19 08:00 97.3 89 22 142/99 (113) 99 04/29/19 08:00 Nasal Cannula 2.0 04/29/19 08:00 2.0 04/29/19 07:42 101 04/29/19 04:00 91 04/29/19 04:00 2.0 04/29/19 04:00 Nasal Cannula 2.0 04/29/19 04:00 97.8 88 20 138/76 (96) 100 04/29/19 00:00 2.0 04/29/19 00:00 Nasal Cannula 2.0 04/29/19 00:00 97.6 87 20 133/79 (97) 99 04/29/19 00:00 83 04/28/19 20:37 79 143/85 04/28/19 20:00 2.0 04/28/19 20:00 88 04/28/19 20:00 Nasal Cannula 2.0 04/28/19 20:00 98.8 79 24 143/85 (104) 100 04/28/19 16:00 97.0 87 20 142/81 (101) 98 04/28/19 16:00 84 04/28/19 16:00 Nasal Cannula 2.0 I&O Intake and Output 04/28/19 04/29/19 19:00 07:00 Intake Total 792.5 ml 183.333 ml Output Total 300 ml 250 ml Balance 492.5 ml -66.667 ml Intake Oral 600 ml IV Total 192.5 ml 183.333 ml Output Urine Total 300 ml 250 ml # Bowel Movements 4 5 Cardiovascular: RSR Respiratory: clear Abdomen: soft, non-tender, decreased bowel sounds Extremities: no tenderness, no cyanosis Laboratory Tests Test 04/28/19 19:30 04/29/19 03:05 Vancomycin Level Trough 4.6 ug/mL (5.0-12.0) L White Blood Count 7.6 K/UL (4.8-10.8) Red Blood Count 3.71 M/UL (4.20-5.40) L Hemoglobin 11.8 G/DL (12.0-16.0) L Hematocrit 38.8 % (37.0-47.0) Mean Corpuscular Volume 105 FL (80-99) H Mean Corpuscular Hemoglobin 31.9 PG (27.0-31.0) H Mean Corpuscular Hemoglobin Concent 30.5 G/DL (32.0-36.0) L Red Cell Distribution Width 16.6 % (11.6-14.8) H Platelet Count 76 K/UL (150-450) L Mean Platelet Volume 11.5 FL (6.5-10.1) H Neutrophils (%) (Auto) % (45.0-75.0) Lymphocytes (%) (Auto) % (20.0-45.0) Monocytes (%) (Auto) % (1.0-10.0) Eosinophils (%) (Auto) % (0.0-3.0) Basophils (%) (Auto) % (0.0-2.0) Differential Total Cells Counted 100 Neutrophils % (Manual) 77 % (45-75) H Lymphocytes % (Manual) 8 % (20-45) L Monocytes % (Manual) 13 % (1-10) H Eosinophils % (Manual) 2 % (0-3) Basophils % (Manual) 0 % (0-2) Band Neutrophils 0 % (0-8) Platelet Estimate Decreased L Platelet Morphology Normal Anisocytosis 1+ Macrocytosis 1+ Sodium Level 141 MMOL/L (136-145) Potassium Level 4.2 MMOL/L (3.5-5.1) Chloride Level 109 MMOL/L (98-107) H Carbon Dioxide Level 25 MMOL/L (21-32) Anion Gap 7 mmol/L (5-15) Blood Urea Nitrogen 15 mg/dL (7-18) Creatinine 0.8 MG/DL (0.55-1.30) Estimat Glomerular Filtration Rate mL/min (>60) Glucose Level 132 MG/DL (74-106) H Calcium Level 8.7 MG/DL (8.5-10.1) Total Bilirubin 2.4 MG/DL (0.2-1.0) H Direct Bilirubin 0.8 MG/DL (0.0-0.3) H Aspartate Amino Transf (AST/SGOT) 47 U/L (15-37) H Alanine Aminotransferase (ALT/SGPT) 39 U/L (12-78) Alkaline Phosphatase 81 U/L (46-116) Total Protein 8.1 G/DL (6.4-8.2) Albumin 3.1 G/DL (3.4-5.0) L Globulin 5.0 g/dL Albumin/Globulin Ratio 0.6 (1.0-2.7) L Plan Problems: (1) Abdominal pain Assessment & Plan: 83 F with abdominal pain. no n/v. overall decompensated dehydrated will need IV fluids no IV access obtained at this time by multiple nurse attempts see note CT findings with Impression: Anasarca, with diffuse edema of the subcutaneous, mesenteric, abdominal fat, also demonstrated on the prior exam. There is also pleural and peritoneal fluid As mentioned above, bilateral pleural effusions. Increased on the right, similar to the prior exam on the left. Resultant basilar compressive atelectatic changes Cardiomegaly and pacemaker Questionable wall thickening of the distal descending colon. Possibly on the basis of generalized edema, colitis possible Bilateral renal cysts. bowel regimen trend labs appreciate GI input. pending serology diet as tolerated thank you will follow with recs (2) Lactic acid acidosis Assessment & Plan: resolved (3) SOB (shortness of breath) Remi Lindquist Apr 29, 2019 14:40
--- NOTE | 2019-04-29 14:55 | NUR ---
RD ASSESSMENT & RECOMMENDATIONS SEE CARE ACTIVITY FOR COMPLETE ASSESSMENT DAILY ESTIMATED NEEDS: Needs based on liver dysfunction, cardiac/ 58.6kg 25-30 kcals/kg 0324-9566 total kcals 1-1.5 g protein/kg 59-88 g total protein 20-25 mL/kg 5165-4672 total fluid mLs NUTRITION DIAGNOSIS: Altered nutrition related lab values R/T cirrhosis, CHF, DM as evidenced by elev AST, elev T bili(2.4), elev NH3 (56), elev BNP (31315), mildly elev BGs (132 146). CURRENT DIET:REGULAR, soft easy chew PO DIET RECOMMENDATIONS: LOW NA/ texture as tolerated ADDITIONAL RECOMMENDATIONS: * RECALIBRATE DAILY BEDSCALE WT * Monitor lytes daily on diuretics/ replete as needed * H/o DM, monitor BG, need for hypoglycemics and/or diet change * A1C for eval of glycemic control- h/o DM * Monitor PO intake closely -> variable at this time * Glucerna 1 tetra paul daily w/ variable PO intake .
--- NOTE | 2019-04-29 15:14 | NUR ---
HAND-OFF: Report given to Keshawn Roman RN.
--- NOTE | 2019-04-29 15:15 | NUR ---
NURSE NOTES: Received pt from JAN Buenrostro in stable condition with no cardiopulmonary distress noted. Pt is AAOx3 on 2L O2 via NC. Pt hooked to satellite project site monitor currently in Afib 75 bpm. F/C noted draining yellow urine. Pt has a RIJ TLC. skin alterations noted. Bed is in lowest position with alarm on, side rails up x 2, call light within reach. Will continue to monitor pt.
[2019-04-29 16:00] VITALS: BP 117/83
--- NOTE | 2019-04-29 19:17 | NUR ---
HAND-OFF: Report given to Ciera Gamez RN. Pt in stable condition.
--- NOTE | 2019-04-29 19:18 | NUR ---
NURSE NOTES: received patient from JAN Guillen. patient is sitting in bed, able to respond to verbal commands, AO X2-3. denies pain at this time. patient is on 2 L O2 via NC, tolerating well. no s/sx of respiratory distress noted at this time. RIJ TLC is patent and intact, running fluids TKO. F/C is patent and intact, draining well. bed in lowest position and locked, siderails up X3, call light within reach. will continue to monitor.
[2019-04-29 20:00] VITALS: BP 137/83
--- NOTE | 2019-04-29 20:04 | Cardiology Progress Note ---
Assessment/Plan Assessment/Plan 1. Persistent atrial fibrillation with controlled ventricular response, continue carvedilol and digoxin. Anticoagulation is contraindicated in view of hx of GI bleed, anemia and gastric cancer. 2. History of cardiomyopathy with left ventricular ejection fraction approximately 25%. 3. Status post AICD pacemaker implantation. 4. History of nonsustained ventricular tachycardia, Mg level at 1.9. 5. History of gastric cancer. 6. History of anemia, iron deficiency, most likely due to gastrointestinal bleed. 7. CKD. 8. Liver cirrhosis Subjective Subjective Atrial fibrillation with CVR at 75. Objective Last 24 Hour Vital Signs Date Time Temp Pulse Resp B/P (MAP) Pulse Ox O2 Delivery O2 Flow Rate FiO2 04/29/19 19:15 Nasal Cannula 2.0 04/29/19 16:00 2.0 04/29/19 16:00 75 04/29/19 16:00 97.9 88 20 117/83 (94) 100 04/29/19 16:00 Nasal Cannula 2.0 04/29/19 12:00 2.0 04/29/19 12:00 97.2 82 22 130/78 (95) 100 04/29/19 12:00 Nasal Cannula 2.0 04/29/19 11:50 95 04/29/19 09:00 89 04/29/19 08:59 89 142/99 04/29/19 08:43 97 Nasal Cannula 2.0 28 04/29/19 08:00 97.3 89 22 142/99 (113) 99 04/29/19 08:00 Nasal Cannula 2.0 04/29/19 08:00 2.0 04/29/19 07:42 101 04/29/19 04:00 91 04/29/19 04:00 2.0 04/29/19 04:00 Nasal Cannula 2.0 04/29/19 04:00 97.8 88 20 138/76 (96) 100 04/29/19 00:00 2.0 04/29/19 00:00 Nasal Cannula 2.0 04/29/19 00:00 97.6 87 20 133/79 (97) 99 04/29/19 00:00 83 04/28/19 20:37 79 143/85 Intake and Output 04/28/19 04/29/19 19:00 07:00 Intake Total 792.5 ml 183.333 ml Output Total 300 ml 250 ml Balance 492.5 ml -66.667 ml Intake Oral 600 ml IV Total 192.5 ml 183.333 ml Output Urine Total 300 ml 250 ml # Bowel Movements 4 5 2D Echo: EF 25%, Pseudo-normal LV physio., Mild KARRI/RVE, pleural eff.,RVSP 53, RAP 1 Laboratory Tests Test 04/29/19 03:05 White Blood Count 7.6 K/UL (4.8-10.8) Red Blood Count 3.71 M/UL (4.20-5.40) L Hemoglobin 11.8 G/DL (12.0-16.0) L Hematocrit 38.8 % (37.0-47.0) Mean Corpuscular Volume 105 FL (80-99) H Mean Corpuscular Hemoglobin 31.9 PG (27.0-31.0) H Mean Corpuscular Hemoglobin Concent 30.5 G/DL (32.0-36.0) L Red Cell Distribution Width 16.6 % (11.6-14.8) H Platelet Count 76 K/UL (150-450) L Mean Platelet Volume 11.5 FL (6.5-10.1) H Neutrophils (%) (Auto) % (45.0-75.0) Lymphocytes (%) (Auto) % (20.0-45.0) Monocytes (%) (Auto) % (1.0-10.0) Eosinophils (%) (Auto) % (0.0-3.0) Basophils (%) (Auto) % (0.0-2.0) Differential Total Cells Counted 100 Neutrophils % (Manual) 77 % (45-75) H Lymphocytes % (Manual) 8 % (20-45) L Monocytes % (Manual) 13 % (1-10) H Eosinophils % (Manual) 2 % (0-3) Basophils % (Manual) 0 % (0-2) Band Neutrophils 0 % (0-8) Platelet Estimate Decreased L Platelet Morphology Normal Anisocytosis 1+ Macrocytosis 1+ Sodium Level 141 MMOL/L (136-145) Potassium Level 4.2 MMOL/L (3.5-5.1) Chloride Level 109 MMOL/L (98-107) H Carbon Dioxide Level 25 MMOL/L (21-32) Anion Gap 7 mmol/L (5-15) Blood Urea Nitrogen 15 mg/dL (7-18) Creatinine 0.8 MG/DL (0.55-1.30) Estimat Glomerular Filtration Rate mL/min (>60) Glucose Level 132 MG/DL (74-106) H Calcium Level 8.7 MG/DL (8.5-10.1) Total Bilirubin 2.4 MG/DL (0.2-1.0) H Direct Bilirubin 0.8 MG/DL (0.0-0.3) H Aspartate Amino Transf (AST/SGOT) 47 U/L (15-37) H Alanine Aminotransferase (ALT/SGPT) 39 U/L (12-78) Alkaline Phosphatase 81 U/L (46-116) Total Protein 8.1 G/DL (6.4-8.2) Albumin 3.1 G/DL (3.4-5.0) L Globulin 5.0 g/dL Albumin/Globulin Ratio 0.6 (1.0-2.7) L Objective HEENT: Atraumatic and normocephalic. Anicteric. Pupils are equal, round, and reactive to light and accommodation. Conjunctival pallor is present. NECK: JVP elevated about 15 centimeter. No carotid bruit. Carotid upstrokes 2+ bilaterally. CARDIOVASCULAR: Normal S1 and S2. Irregularly irregular rhythm. Cannot appreciate any murmurs, gallops, or rubs. LUNGS: Clear to auscultation bilaterally. ABDOMEN: Soft, nontender, and nondistended. No hepatosplenomegaly. Positive bowel sounds. Scar of surgery in the left midline vertical line, parallel to midline. EXTREMITIES: No evidence of edema, clubbing, or cyanosis. Carroll Fernandez MD Apr 29, 2019 20:04
[2019-04-29] MEDS: Dyna-Hex 2% Top Sol 2oz TOPIC SCH (20:41)
[2019-04-29] MEDS: Vancomycin 1.25gm Premix IVPB SCH (20:41)
[2019-04-30] VITALS: BP 144/81
[2019-04-30 04:00] VITALS: BP 139/89
--- NOTE | 2019-04-30 07:48 | NUR ---
HAND-OFF: Report given to JAN Hall. patient is in stable condition.
--- NOTE | 2019-04-30 07:50 | NUR ---
NURSE NOTES: Report received from JAN Vang. Observed patient in bed eating breakfast. Alert and verbally responsive. Receiving 2L of oxygen via N/C with no distress noted. TLC intact and patent. Denies pain at this time. F/C intact and draining well. Bed in lowest position. Call light within reach. Will continue to monitor.
--- NOTE | 2019-04-30 07:59 | NUR ---
NURSE NOTES: Called and left message to Dr. Frankel regarding low magnesium level. Awaiting for call back.
[2019-04-30 08:00] VITALS: BP 116/64
--- NOTE | 2019-04-30 08:17 | NUR ---
NURSE NOTES: Called back from Dr. Frankel regarding lo magnesium level with new order. Order carried out.
[2019-04-30] MEDS: Carvedilol 6.25mg Tab ORAL SCH ×2 (08:58→20:50)
[2019-04-30] MEDS: Spironolactone 25mg tab ORAL SCH (08:58)
[2019-04-30] MEDS: Sucralfate 1gm tab ORAL SCH (08:58)
[2019-04-30] MEDS: Digoxin 0.125mg tab ORAL SCH (08:59)
[2019-04-30] MEDS: Lactulose 20gm/30ml UDC ORAL SCH ×2 (09:00→17:28)
[2019-04-30] MEDS ORDERED: NS 275ml ONE (10:54)
[2019-04-30] MEDS ORDERED: Tubing IV Secondary IV ONE (10:54)
[2019-04-30 12:00] VITALS: BP 126/89
--- NOTE | 2019-04-30 12:03 | General Progress Note ---
Assessment/Plan Problem List: (1) Cirrhosis ICD Codes: K74.60 - Unspecified cirrhosis of liver SNOMED: 70270152 (2) Metabolic acidosis ICD Codes: E87.2 - Acidosis SNOMED: 60221943 (3) CHF (congestive heart failure), NYHA class IV ICD Codes: I50.9 - Heart failure, unspecified SNOMED: 043095896, 316936679 (4) SVT (supraventricular tachycardia) ICD Codes: I47.1 - Supraventricular tachycardia SNOMED: 9305418 (5) Elevated troponin (6) Anemia ICD Codes: D64.9 - Anemia, unspecified SNOMED: 792730800 (7) SOB (shortness of breath) ICD Codes: R06.02 - Shortness of breath SNOMED: 164997508 (8) A-fib ICD Codes: I48.91 - Unspecified atrial fibrillation SNOMED: 05364812 (9) Gastric cancer ICD Codes: C16.9 - Malignant neoplasm of stomach, unspecified SNOMED: 337675759 (10) Paroxysmal a-fib ICD Codes: I48.0 - Paroxysmal a-fib SNOMED: 906398441 Status: stable, progressing Assessment/Plan: transfer tele diuresis with lasix repeat cxr may need to tap effusion monitor ammonia level lactulose o2 resp rx pt/ot Subjective ROS Limited/Unobtainable: No Constitutional: Reports: malaise, weakness HEENT: Reports: no symptoms Cardiovascular: Reports: no symptoms Respiratory: Reports: SOB at rest Gastrointestinal/Abdominal: Reports: no symptoms Genitourinary: Reports: no symptoms Neurologic/Psychiatric: Reports: no symptoms Endocrine: Reports: no symptoms Allergies: Coded Allergies: CODEINE (Verified Allergy, Unknown, 06/17/18) All Systems: reviewed and negative except above Subjective no real complaints. doesnt really feel any better today. cxr wth decreased pleural effusion. Objective Last 24 Hour Vital Signs Date Time Temp Pulse Resp B/P (MAP) Pulse Ox O2 Delivery O2 Flow Rate FiO2 04/30/19 08:59 86 04/30/19 08:58 86 116/64 04/30/19 08:45 97 Nasal Cannula 2.0 28 04/30/19 08:00 2.0 04/30/19 08:00 Nasal Cannula 2.0 04/30/19 08:00 98.2 86 21 116/64 (81) 100 04/30/19 08:00 87 04/30/19 04:00 2.0 04/30/19 04:00 84 04/30/19 04:00 98.6 73 24 139/89 (106) 99 04/30/19 04:00 Nasal Cannula 2.0 04/30/19 00:00 Nasal Cannula 2.0 04/30/19 00:00 98.6 90 24 144/81 (102) 100 04/30/19 00:00 76 04/29/19 20:41 83 137/83 04/29/19 20:00 2.0 04/29/19 20:00 85 04/29/19 20:00 98.0 83 24 137/83 (101) 100 04/29/19 20:00 Nasal Cannula 2.0 04/29/19 19:15 Nasal Cannula 2.0 04/29/19 16:00 2.0 04/29/19 16:00 75 04/29/19 16:00 97.9 88 20 117/83 (94) 100 04/29/19 16:00 Nasal Cannula 2.0 Intake and Output 04/29/19 04/30/19 18:59 06:59 Intake Total 480 ml 275.000 ml Output Total 1500 ml 300 ml Balance -1020 ml -25.000 ml Intake Oral 480 ml IV Total 275.000 ml Output Urine Total 1500 ml 300 ml # Bowel Movements 2 3 Laboratory Tests 04/30/19 04:48: Magnesium Level 1.7L Height (Feet): 5 Height (Inches): 4.00 Weight (Pounds): 149 Objective General Appearance: WD/WN, alert Neck: supple Cardiovascular: normal rate, regular rhythm Respiratory/Chest: chest wall non-tender, lungs clear, normal breath sounds, no respiratory distress Abdomen: normal bowel sounds, non tender, soft, no organomegaly Edema: no edema noted Arm (L), no edema noted Arm (R), no edema noted Leg (L), no edema noted Leg (R), no edema noted Pedal (L), no edema noted Pedal (R), no edema noted Generalized Neurologic: application penetration tester II-XII grossly normal, alert, oriented x 3, responsive Palomo Frankel MD Apr 30, 2019 12:03
--- NOTE | 2019-04-30 14:48 | Surgery Progress Note ---
Surgery Progress Note Subjective Procedure Performed right internal jugular central venous catheter insertion with ultrasound guidance [id number] (ultrasound guidance) Symptoms: improved Objective Last 24 Hour Vital Signs Date Time Temp Pulse Resp B/P (MAP) Pulse Ox O2 Delivery O2 Flow Rate FiO2 04/30/19 12:00 2.0 04/30/19 12:00 92 04/30/19 12:00 97.8 88 20 126/89 (101) 98 04/30/19 11:53 Nasal Cannula 2.0 04/30/19 08:59 86 04/30/19 08:58 86 116/64 04/30/19 08:45 97 Nasal Cannula 2.0 28 04/30/19 08:00 2.0 04/30/19 08:00 Nasal Cannula 2.0 04/30/19 08:00 98.2 86 21 116/64 (81) 100 04/30/19 08:00 87 04/30/19 04:00 2.0 04/30/19 04:00 84 04/30/19 04:00 98.6 73 24 139/89 (106) 99 04/30/19 04:00 Nasal Cannula 2.0 04/30/19 00:00 Nasal Cannula 2.0 04/30/19 00:00 98.6 90 24 144/81 (102) 100 04/30/19 00:00 76 04/29/19 20:41 83 137/83 04/29/19 20:00 2.0 04/29/19 20:00 85 04/29/19 20:00 98.0 83 24 137/83 (101) 100 04/29/19 20:00 Nasal Cannula 2.0 04/29/19 19:15 Nasal Cannula 2.0 04/29/19 16:00 2.0 04/29/19 16:00 75 04/29/19 16:00 97.9 88 20 117/83 (94) 100 04/29/19 16:00 Nasal Cannula 2.0 I&O Intake and Output 04/29/19 04/30/19 19:00 07:00 Intake Total 480 ml 275.000 ml Output Total 1500 ml 300 ml Balance -1020 ml -25.000 ml Intake Oral 480 ml IV Total 275.000 ml Output Urine Total 1500 ml 300 ml # Bowel Movements 2 3 Dressing: dry Wound: clean Drains: none Cardiovascular: RSR Respiratory: clear Abdomen: soft, present bowel sounds Extremities: no tenderness, no cyanosis Laboratory Tests Test 04/30/19 04:48 Magnesium Level 1.7 MG/DL (1.8-2.4) L Plan Problems: (1) Abdominal pain Assessment & Plan: 83 F with abdominal pain. no n/v. overall decompensated dehydrated will need IV fluids no IV access obtained at this time by multiple nurse attempts see note CT findings with Impression: Anasarca, with diffuse edema of the subcutaneous, mesenteric, abdominal fat, also demonstrated on the prior exam. There is also pleural and peritoneal fluid As mentioned above, bilateral pleural effusions. Increased on the right, similar to the prior exam on the left. Resultant basilar compressive atelectatic changes Cardiomegaly and pacemaker Questionable wall thickening of the distal descending colon. Possibly on the basis of generalized edema, colitis possible Bilateral renal cysts. bowel regimen trend labs appreciate GI input. pending serology diet as tolerated thank you will follow with recs (2) Lactic acid acidosis Assessment & Plan: resolved (3) SOB (shortness of breath) Remi Lindquist Apr 30, 2019 14:48
[2019-04-30 16:00] VITALS: BP 118/76
--- NOTE | 2019-04-30 16:01 | General Progress Note ---
Assessment/Plan Status: stable, progressing Assessment/Plan: Assessment - abdominal pain, improved - urinary retention - Thickened colon on CT - Doubt significance - cirrhosis - CM/CHF/ICD - coagulopathy - Anasarca - Poor Px Recommendations - Xifaxan - lactulose - check AFP--> normal - check HBV, HCV - po diet as tolerated Subjective Allergies: Coded Allergies: CODEINE (Verified Allergy, Unknown, 06/17/18) Subjective Above noted tolerating PO feels better, stronger Objective Last 24 Hour Vital Signs Date Time Temp Pulse Resp B/P (MAP) Pulse Ox O2 Delivery O2 Flow Rate FiO2 04/30/19 12:00 2.0 04/30/19 12:00 92 04/30/19 12:00 97.8 88 20 126/89 (101) 98 04/30/19 11:53 Nasal Cannula 2.0 04/30/19 08:59 86 04/30/19 08:58 86 116/64 04/30/19 08:45 97 Nasal Cannula 2.0 28 04/30/19 08:00 2.0 04/30/19 08:00 Nasal Cannula 2.0 04/30/19 08:00 98.2 86 21 116/64 (81) 100 04/30/19 08:00 87 04/30/19 04:00 2.0 04/30/19 04:00 84 04/30/19 04:00 98.6 73 24 139/89 (106) 99 04/30/19 04:00 Nasal Cannula 2.0 04/30/19 00:00 Nasal Cannula 2.0 04/30/19 00:00 98.6 90 24 144/81 (102) 100 04/30/19 00:00 76 04/29/19 20:41 83 137/83 04/29/19 20:00 2.0 04/29/19 20:00 85 04/29/19 20:00 98.0 83 24 137/83 (101) 100 04/29/19 20:00 Nasal Cannula 2.0 04/29/19 19:15 Nasal Cannula 2.0 Intake and Output 04/29/19 04/30/19 19:00 07:00 Intake Total 480 ml 275.000 ml Output Total 1500 ml 300 ml Balance -1020 ml -25.000 ml Intake Oral 480 ml IV Total 275.000 ml Output Urine Total 1500 ml 300 ml # Bowel Movements 2 3 Laboratory Tests 04/30/19 04:48: Magnesium Level 1.7L Height (Feet): 5 Height (Inches): 4.00 Weight (Pounds): 149 Objective Debilitated AA woman NCAT supple CTA RR abd soft, (+) edema ext (+) edema Mauro Stephenson MD Apr 30, 2019 16:01
--- NOTE | 2019-04-30 19:21 | NUR ---
HAND-OFF: Report given to JAN Vang. Stable condition.
--- NOTE | 2019-04-30 19:25 | NUR ---
NURSE NOTES: Received patient from JAN Hall. patient is sleeping in bed, arousable and responsive to name. denies pain at this time. patient is on 2 L O2 via NC, tolerating well. no s/sx of respiratory distress noted at this time. F/C is patent and intact, draining well. IV site is patent and intact, running fluids TKO. bed in lowest position and locked, siderails up X3, call light within reach. will continue to monitor.
[2019-04-30] MEDS: Vancomycin 1.25gm Premix IVPB SCH (19:50)
[2019-04-30 20:00] VITALS: BP 123/74
[2019-04-30] MEDS: Dyna-Hex 2% Top Sol 2oz TOPIC SCH (20:00)
--- NOTE | 2019-04-30 21:14 | NUR ---
TRANSFER TO FLOOR: Patient transferred to Telemetry 2E. patient is in stable condition. Report given to JAN Cameron. Belongings transferred with patient and are at bedside. Family and or S/O informed of transfer.
--- NOTE | 2019-04-30 21:15 | NUR ---
NURSE NOTES: Received patient from JAN Vang. Patient placed in room and is stable. Will continue plan of care.
[2019-05-01] VITALS: BP 134/63
[2019-05-01 04:00] VITALS: BP 133/67
--- NOTE | 2019-05-01 07:15 | NUR ---
HAND-OFF: Report given to JAN CARO.
--- NOTE | 2019-05-01 07:16 | NUR ---
NURSE NOTES: Received report from JAN Cameron. Patient is resting in bed, in stable condition with no signs and symptoms of acute distress at this time. A/O x3. Breathing unlabored with 2 liter Nasal Cannula. Bed is in lowest position with three side rails up, brakes engaged . Call light and bed side table are within reach. Will continue plan of care.
[2019-05-01 08:00] VITALS: BP 133/68
[2019-05-01] MEDS: Lactulose 20gm/30ml UDC ORAL SCH ×3 (09:30→17:38)
[2019-05-01] MEDS: Digoxin 0.125mg tab ORAL SCH (09:31)
[2019-05-01] MEDS: Sucralfate 1gm tab ORAL SCH (09:31)
[2019-05-01] MEDS: Spironolactone 25mg tab ORAL SCH (09:31)
[2019-05-01] MEDS: Carvedilol 6.25mg Tab ORAL SCH ×2 (09:33→20:47)
--- NOTE | 2019-05-01 10:28 | General Progress Note ---
Assessment/Plan Status: stable, progressing Assessment/Plan: Assessment - abdominal pain, improved - urinary retention - Thickened colon on CT - Doubt significance - cirrhosis - CM/CHF/ICD - coagulopathy - Anasarca - Poor Px Recommendations - Xifaxan - lactulose - check AFP--> normal - check HBV, HCV - po diet as tolerated Subjective Allergies: Coded Allergies: CODEINE (Verified Allergy, Unknown, 06/17/18) Subjective Above noted tolerating PO (+) BM Objective Last 24 Hour Vital Signs Date Time Temp Pulse Resp B/P (MAP) Pulse Ox O2 Delivery O2 Flow Rate FiO2 05/01/19 09:33 73 133/68 05/01/19 09:31 73 05/01/19 09:00 Nasal Cannula 2.0 05/01/19 08:00 77 05/01/19 08:00 2.0 05/01/19 08:00 97.7 62 20 133/68 (89) 99 05/01/19 06:55 97 Nasal Cannula 2.0 28 05/01/19 04:00 98.8 86 18 133/67 (89) 98 05/01/19 04:00 Nasal Cannula 2.0 05/01/19 04:00 2.0 05/01/19 03:47 83 05/01/19 00:00 Nasal Cannula 2.0 05/01/19 00:00 97.6 89 20 134/63 (86) 99 05/01/19 00:00 2.0 04/30/19 23:47 66 04/30/19 20:50 70 123/74 04/30/19 20:29 97 Nasal Cannula 2.0 28 04/30/19 20:00 2.0 04/30/19 20:00 Nasal Cannula 2.0 04/30/19 20:00 70 04/30/19 20:00 97.5 79 18 123/74 (90) 98 04/30/19 16:00 71 04/30/19 16:00 97.5 80 21 118/76 (90) 98 04/30/19 16:00 Nasal Cannula 2.0 04/30/19 16:00 2.0 04/30/19 12:00 2.0 04/30/19 12:00 92 04/30/19 12:00 97.8 88 20 126/89 (101) 98 04/30/19 11:53 Nasal Cannula 2.0 Intake and Output 04/30/19 05/01/19 18:59 06:59 Intake Total 700 ml 50 ml Output Total 1250 ml 500 ml Balance -550 ml -450 ml Intake Oral 500 ml 50 ml IV Total 200 ml Output Urine Total 1250 ml 500 ml # Bowel Movements 2 Height (Feet): 5 Height (Inches): 4.00 Weight (Pounds): 150 Objective Debilitated AA woman NCAT supple CTA RR abd soft, (+) edema ext (+) edema Mauro Stephenson MD May 01, 2019 10:28
[2019-05-01] MEDS ORDERED: Lidocaine 1% Plain 30 ml INJ PRN (11:15)
[2019-05-01] MEDS ORDERED: Heparin1,000 units/500ml Premix(Conc:2 units/ml) IV PRN (11:15)
--- NOTE | 2019-05-01 11:23 | General Progress Note ---
Assessment/Plan Problem List: (1) Cirrhosis ICD Codes: K74.60 - Unspecified cirrhosis of liver SNOMED: 18862740 (2) Metabolic acidosis ICD Codes: E87.2 - Acidosis SNOMED: 89659726 (3) CHF (congestive heart failure), NYHA class IV ICD Codes: I50.9 - Heart failure, unspecified SNOMED: 190118389, 277488034 (4) SVT (supraventricular tachycardia) ICD Codes: I47.1 - Supraventricular tachycardia SNOMED: 1498160 (5) Elevated troponin (6) Anemia ICD Codes: D64.9 - Anemia, unspecified SNOMED: 900880464 (7) SOB (shortness of breath) ICD Codes: R06.02 - Shortness of breath SNOMED: 198301788 (8) A-fib ICD Codes: I48.91 - Unspecified atrial fibrillation SNOMED: 69299458 (9) Gastric cancer ICD Codes: C16.9 - Malignant neoplasm of stomach, unspecified SNOMED: 778415308 (10) Paroxysmal a-fib ICD Codes: I48.0 - Paroxysmal a-fib SNOMED: 927346913 Status: stable, progressing Assessment/Plan: tele diuresis with lasix dobutamine per cards repeat cxr lactulose o2 resp rx pt/ot Subjective ROS Limited/Unobtainable: No Constitutional: Reports: malaise, weakness HEENT: Reports: no symptoms Cardiovascular: Reports: no symptoms Respiratory: Reports: shortness of breath Gastrointestinal/Abdominal: Reports: abdominal pain Genitourinary: Reports: no symptoms Neurologic/Psychiatric: Reports: no symptoms Endocrine: Reports: no symptoms Hematologic/Lymphatic: Reports: anemia Allergies: Coded Allergies: CODEINE (Verified Allergy, Unknown, 06/17/18) All Systems: reviewed and negative except above Subjective no real complaints. doesnt really feel any better today. cxr wth decreased pleural effusion. Objective Last 24 Hour Vital Signs Date Time Temp Pulse Resp B/P (MAP) Pulse Ox O2 Delivery O2 Flow Rate FiO2 05/01/19 09:33 73 133/68 05/01/19 09:31 73 05/01/19 09:00 Nasal Cannula 2.0 05/01/19 08:00 77 05/01/19 08:00 2.0 05/01/19 08:00 97.7 62 20 133/68 (89) 99 05/01/19 06:55 97 Nasal Cannula 2.0 28 05/01/19 04:00 98.8 86 18 133/67 (89) 98 05/01/19 04:00 Nasal Cannula 2.0 05/01/19 04:00 2.0 05/01/19 03:47 83 05/01/19 00:00 Nasal Cannula 2.0 05/01/19 00:00 97.6 89 20 134/63 (86) 99 05/01/19 00:00 2.0 04/30/19 23:47 66 04/30/19 20:50 70 123/74 04/30/19 20:29 97 Nasal Cannula 2.0 28 04/30/19 20:00 2.0 04/30/19 20:00 Nasal Cannula 2.0 04/30/19 20:00 70 04/30/19 20:00 97.5 79 18 123/74 (90) 98 04/30/19 16:00 71 04/30/19 16:00 97.5 80 21 118/76 (90) 98 04/30/19 16:00 Nasal Cannula 2.0 04/30/19 16:00 2.0 04/30/19 12:00 2.0 04/30/19 12:00 92 04/30/19 12:00 97.8 88 20 126/89 (101) 98 04/30/19 11:53 Nasal Cannula 2.0 Intake and Output 04/30/19 05/01/19 18:59 06:59 Intake Total 700 ml 50 ml Output Total 1250 ml 500 ml Balance -550 ml -450 ml Intake Oral 500 ml 50 ml IV Total 200 ml Output Urine Total 1250 ml 500 ml # Bowel Movements 2 Height (Feet): 5 Height (Inches): 4.00 Weight (Pounds): 150 Objective General Appearance: WD/WN, alert Neck: supple Cardiovascular: normal rate, regular rhythm Respiratory/Chest: chest wall non-tender, lungs clear, normal breath sounds, no respiratory distress Abdomen: normal bowel sounds, non tender, soft, no organomegaly Edema: no edema noted Arm (L), no edema noted Arm (R), no edema noted Leg (L), no edema noted Leg (R), no edema noted Pedal (L), no edema noted Pedal (R), no edema noted 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
[2019-05-01 12:00] VITALS: BP 125/77
--- NOTE | 2019-05-01 12:54 | Cardiology Report ---
APPROVED REPORT EXAM: Two-dimensional and M-mode echocardiogram with Doppler and color Doppler. INDICATION Congestive Heart Failure M-Mode DIMENSIONS IVSd0.9 (0.7-1.1cm)Left Atrium (MM)4.1 (1.6-4.0cm) LVDd5.3 (3.5-5.6cm)Aortic Root3.5 (2.0-3.7cm) PWd0.9 (0.7-1.1cm)Aortic Cusp Exc.1.7 (1.5-2.0cm) IVSs1.0 cm LVDs5.0 (2.5-4.0cm) PWs0.9 cm Normal left ventricular chamber size . Global left ventricular wall akinesia except the septal wall which is dyskinetic likely due to pacemaker induced effect, ischemic cardiomyopathy can not be excluded . Left ventricular ejection fraction estimated to be 10-15%. Mild left ventricular hypertrophy . Pleural effusion present. No evidence of pericardial effusion. Mild left atrial enlargement . Moderate right atrial enlargement. Mild right ventricular enlargement . Focal aortic valve sclerosis with adequate cusp excursion. Thickened mitral valve leaflets with normal excursion. Mitral annulus and aortic root calcification. Normal pulmonic valve structure. Normal tricuspid valve structure. IVC dilated at 2.7cm without physiologic collapse suggestive of increased RA pressure. Pacemaker wire present in the right side chambers. A color flow and spectral Doppler study was performed and revealed: No aortic regurgitation. Mild to moderate mitral regurgitation. Mitral inflow velocities cannot be assessed due to underlying atrial rhythm or pacemaker beats. Moderate to severe tricuspid regurgitation. Tricuspid systolic velocities suggests peak right ventricular systolic pressure of 53 mmHg,consistent with moderate pulmonary HTN.
[2019-05-01] MEDS: Lisinopril 10mg tab ORAL SCH (14:27)
[2019-05-01 16:00] VITALS: BP 143/71
--- NOTE | 2019-05-01 17:14 | Progress Note ---
DATE: 05/01/2019 CARDIOLOGY PROGRESS NOTE SUBJECTIVE: The patient is still short of breath. Diuresis efforts have not been optimal. IV accesses is poor. OBJECTIVE: VITAL SIGNS: Blood pressure 118/76, heart rate 80, respiratory rate 21, afebrile, and oxygen sats on 2 liters 98%. Monitored rhythm, atrial fibrillation, rate controlled in the 70s with demand ventricular pacing. NECK: Jugular venous pressure greater than 10. LUNGS: Bilateral rales. HEART: Irregularly irregular rhythm. Normal S1, paradoxically split S2. A 1/6 systolic apical murmur. ABDOMEN: With some ascites. EXTREMITIES: With 2+ dependent lower extremity edema. IMPRESSION: 1. Refractory systolic congestive heart failure. 2. Acute on chronic cardiomyopathy with biventricular defibrillator. 3. Paroxysmal atrial fibrillation, rate controlled. 4. History of ventricular tachyarrhythmias and sudden cardiac . 5. Poor peripheral IV access. 6. History of gastric cancer and GI bleeding, in remission now. 7. Hypomagnesemia with magnesium level 1.7 today. PLAN: 1. We will obtain central venous access with PICC line and initiate intravenous dobutamine for inotropic support. 2. We will continue intravenous diuresis. We would add ARABELLA inhibitor as tolerated by blood pressure. 3. Continue carvedilol. 4. IV magnesium as needed. 5. Trend natriuretic peptide assay. Miguel Mason M.D. DR: HINA JOB#: [id number] CC:
--- NOTE | 2019-05-01 18:15 | Consultation ---
DATE OF CONSULTATION: 04/30/2019 CARDIOLOGY CONSULTATION CONSULTING PHYSICIAN: Miguel Mason M.D. REQUESTING PHYSICIAN: Palomo Frankel M.D. REASON FOR CONSULTATION: Intractable systolic heart failure history, known to me for many years of care. HISTORY OF PRESENT ILLNESS: This is a 83-year-old female with a nonischemic dilated cardiomyopathy. She has a known ejection fraction of approximately 25% and cardiac defibrillator which is biventricular. She has had prior episodes of sudden cardiac in addition to ventricular tachyarrhythmias and paroxysmal atrial fibrillation complicating matters further. She is not on anticoagulation due to GI bleeding from her upper GI disease related to prior gastrectomy for gastric cancer and gastritis. The patient was hospitalized approximately 6 months ago for severe anemia while on Eliquis, did have endoscopy confirming, no recurrent carcinoma at that time. The patient has been in the hospital for approximately a week. She has improved mildly but still has shortness of breath with any activity out of bed and continued edema. Her blood pressure is at times low which has limited diuresis. PAST MEDICAL HISTORY: Non-insulin requiring diabetes mellitus, chronic kidney disease, paroxysmal atrial fibrillation, ventricular tachycardia, history of sudden cardiac , systolic congestive heart failure, hypertensive heart disease, biventricular defibrillator, history of gastric cancer status post gastrectomy, gastritis, history of GI bleeding, hyperlipidemia, peripheral neuropathy, degenerative disk disease, rotator cuff abnormality, osteoarthritis. ALLERGIES: Codeine. MEDICATIONS: Current medications reviewed and reconciled. SOCIAL HISTORY: Negative for smoking, alcohol, or substance abuse. She lives at home. FAMILY HISTORY: Notable for hypertension in her son. REVIEW OF SYSTEMS: No fevers or chills. No history of positive PPD. No history of COPD or asthma. No history of DVT. She has a prior history of thyroid disorder although presently has not required replacement therapy. She has been intolerant to amiodarone in the past. There is no history of seizure or stroke. She is on oral therapy for her diabetes. There is no sign of recurrent gastric cancer as of endoscopy last year. The patient's defibrillator was interrogated within the last 3 months and functioning appropriately. PHYSICAL EXAMINATION: GENERAL: She is in mild respiratory distress at rest. VITAL SIGNS: Blood pressure 123/74, pulse 70, respiratory rate 18, afebrile, oxygen saturation 98% on 2 liters. HEENT: Conjunctivae pink. Sclerae are anicteric. Oropharynx clear. NECK: Supple. Jugular venous pressure greater than 10. CHEST: Chest wall with ICD site on the left. BREASTS: Without masses. LUNGS: Bilateral breath sounds and basilar rales. CARDIAC: Irregularly irregular rhythm. Normal S1, paradoxically split S2. A 2/6 systolic murmur at apex. ABDOMEN: Soft, nontender. Moderate ascites. EXTREMITIES: With 2+ dependent lower extremity edema. There is very poor peripheral IV access sites. NEUROLOGIC: Nonfocal. LABORATORY DATA: Natriuretic peptide on admission was over 30,000. Hemoglobin yesterday was 11.8. Potassium 4.2, BUN 15, creatinine 0.8. Albumin 3.1. IMPRESSION: 1. Cardiogenic insufficiency. 2. Severe cardiomyopathy. 3. Biventricular cardiac defibrillator. 4. Acute on chronic systolic congestive heart failure. 5. Chronic kidney disease. 6. Type 2 diabetes mellitus. 7. Paroxysmal atrial and ventricular arrhythmias. 8. History of gastric cancer. 9. GI bleeding. PLAN: 1. Advanced diuresis if renal function can tolerate. 2. Central venous access and consideration for inotrope support with dobutamine, no anticoagulation at this time. 3. DVT prophylaxis. 4. Maximize anti-failure regimen with carvedilol and ARABELLA inhibitor. 5. Maintain Aldactone for potassium sparing effect. 6. Check magnesium level and trend natriuretic peptide assay. Miguel Mason M.D. DR: Rose Mary JOB#: [id number] CC:
--- NOTE | 2019-05-01 19:27 | NUR ---
HAND-OFF: Report given to JAN Madrigal.
--- NOTE | 2019-05-01 19:37 | NUR ---
NURSE NOTES: RECEIVED PATIENT RESTING IN BED, NO COMPLAINTS OF PAIN AT THIS TIME. FALL PRECAUTIONS IN PLACE: CALL LIGHT, DANIEL AND BEDSIDE TABLE WITHIN REACH, BED IN LOW POSITION AND BED ALARM ON. PLAN OF CARE REVIEWED.
--- NOTE | 2019-05-01 19:42 | Surgery Progress Note ---
Surgery Progress Note Subjective Additional Comments no acute events labs noted exam stable Objective Last 24 Hour Vital Signs Date Time Temp Pulse Resp B/P (MAP) Pulse Ox O2 Delivery O2 Flow Rate FiO2 05/01/19 16:00 98.0 86 22 143/71 (95) 96 05/01/19 16:00 75 05/01/19 16:00 2.0 05/01/19 14:27 125/77 05/01/19 12:00 74 05/01/19 12:00 98.3 91 20 125/77 (93) 100 05/01/19 12:00 2.0 05/01/19 09:33 73 133/68 05/01/19 09:31 73 05/01/19 09:00 Nasal Cannula 2.0 05/01/19 08:00 77 05/01/19 08:00 2.0 05/01/19 08:00 97.7 62 20 133/68 (89) 99 05/01/19 06:55 97 Nasal Cannula 2.0 28 05/01/19 04:00 98.8 86 18 133/67 (89) 98 05/01/19 04:00 Nasal Cannula 2.0 05/01/19 04:00 2.0 05/01/19 03:47 83 05/01/19 00:00 Nasal Cannula 2.0 05/01/19 00:00 97.6 89 20 134/63 (86) 99 05/01/19 00:00 2.0 04/30/19 23:47 66 04/30/19 20:50 70 123/74 04/30/19 20:29 97 Nasal Cannula 2.0 28 04/30/19 20:00 2.0 04/30/19 20:00 Nasal Cannula 2.0 04/30/19 20:00 70 04/30/19 20:00 97.5 79 18 123/74 (90) 98 I&O Intake and Output 04/30/19 05/01/19 19:00 07:00 Intake Total 700 ml 50 ml Output Total 1250 ml 500 ml Balance -550 ml -450 ml Intake Oral 500 ml 50 ml IV Total 200 ml Output Urine Total 1250 ml 500 ml # Bowel Movements 2 Dressing: dry Wound: clean Drains: other Cardiovascular: RSR Respiratory: clear Abdomen: soft, present bowel sounds, non-distended Extremities: no cyanosis Laboratory Tests Test 05/01/19 19:30 Vancomycin Level Trough Pending Plan Problems: (1) Abdominal pain Assessment & Plan: 83 F with abdominal pain. no n/v. overall decompensated dehydrated will need IV fluids no IV access obtained at this time by multiple nurse attempts see note CT findings with Impression: Anasarca, with diffuse edema of the subcutaneous, mesenteric, abdominal fat, also demonstrated on the prior exam. There is also pleural and peritoneal fluid As mentioned above, bilateral pleural effusions. Increased on the right, similar to the prior exam on the left. Resultant basilar compressive atelectatic changes Cardiomegaly and pacemaker Questionable wall thickening of the distal descending colon. Possibly on the basis of generalized edema, colitis possible Bilateral renal cysts. bowel regimen trend labs appreciate GI input. diet as tolerated thank you will follow with recs (2) Lactic acid acidosis Assessment & Plan: resolved (3) SOB (shortness of breath) Remi Lindquist May 01, 2019 19:42
[2019-05-01 20:00] VITALS: BP 107/65
[2019-05-01] MEDS ORDERED: Vancomycin 275 ML IVPB SCH (20:00)
[2019-05-01] MEDS ORDERED: Dyna-Hex 2% Top Sol 2oz TOPIC SCH (20:00)
--- NOTE | 2019-05-01 20:03 | NUR ---
NURSE NOTES: NOTED IV HL TO LEFT THUMB INFILTRATED, PAINFUL AND SWOLLEN. PATIENT HARD STICK AND REFUSED NEW IV ACCESS. ALSO REFUSED TO REMOVE INFILTRATED IV HL. EXPLAINED TO PATIENT HIGH RISK FOR INFECTION, PATIENT VERBALIZED UNDERSTANDING AND STILL REFUSING. PATIENT HAS VANCOMYCIN IVPB DUE AT 1999. CALLED AND LEFT MESSAGE FOR DR. CHAN
[2019-05-01] MEDS: Heparin 5000 units/ml inj SUBQ SCH (20:58)
[2019-05-02] VITALS: BP 111/60
[2019-05-02 04:00] VITALS: BP 110/65
[2019-05-02 06:04] LABS: HEMOGLOBIN 10.8 G/DL (12.0-16.0); MEAN CORPUSCULAR VOLUME 103 FL (80-99); PLATELET COUNT 86 K/UL (150-450); RED BLOOD COUNT 3.41 M/UL (4.20-5.40); RED CELL DISTRIBUTION WIDTH 15.7 % (11.6-14.8); WHITE BLOOD COUNT 7.2 K/UL (4.8-10.8)
[2019-05-02 06:26] LABS: ALANINE AMINOTRANSFERASE 26 U/L (12-78); ALBUMIN 2.5 G/DL (3.4-5.0); ALBUMIN/GLOBULIN RATIO 0.5 (1.0-2.7); ALKALINE PHOSPHATASE 76 U/L (46-116); ANION GAP 4 mmol/L (5-15); ASPARTATE AMINO TRANSFERASE 29 U/L (15-37); BILIRUBIN,TOTAL 1.8 MG/DL (0.2-1.0); BLOOD UREA NITROGEN 15 mg/dL (7-18); CALCIUM 8.7 MG/DL (8.5-10.1); CARBON DIOXIDE 31 MMOL/L (21-32); CHLORIDE 104 MMOL/L (98-107); CREATININE 1.1 MG/DL (0.55-1.30); POTASSIUM 3.8 MMOL/L (3.5-5.1); SODIUM 139 MMOL/L (136-145)
[2019-05-02 06:29] LABS: BILIRUBIN,DIRECT 0.9 MG/DL (0.0-0.3)
--- NOTE | 2019-05-02 07:05 | NUR ---
NURSE NOTES: Patient is resting in bed. Patient is AAO x 3. Patient is on 2L NC. Patient is breathing even and unlabored. Patient is on family living educator. Patient denies pain at this time. Informed plan of care about PICC placement today. Dr. Frankel saw patient to verify plan. Dr. Frankel is aware of no IV access and PICC placement. In addition, will verify with Dr. Mason about transfer to SDU after PICC placement order. Fall precautions in place: call light within reach, bedside within reach, bed in lowest position, bed alarm on, yellow socks, bed locked. Will continue plan of care. Addendum: 05/02/19 at 0759 by Bill Oconnor RN Patient received from JAN Madrigal.
--- NOTE | 2019-05-02 07:08 | NUR ---
HAND-OFF: Report given to Mary Jo RASHID RN. PATIENT ASLEEP, NO SIGNS OF DISTRESS NOTED.
[2019-05-02 08:00] VITALS: BP 126/64
[2019-05-02] MEDS: Heparin 5000 units/ml inj SUBQ SCH ×2 (08:12→21:00)
[2019-05-02] MEDS: Lactulose 20gm/30ml UDC ORAL SCH ×2 (09:00→19:00)
[2019-05-02] MEDS: Sucralfate 1gm tab ORAL SCH (09:01)
[2019-05-02] MEDS: Spironolactone 25mg tab ORAL SCH (09:01)
[2019-05-02] MEDS: Lisinopril 10mg tab ORAL SCH (09:01)
[2019-05-02] MEDS: Carvedilol 6.25mg Tab ORAL SCH ×2 (09:02→20:53)
[2019-05-02] MEDS: Digoxin 0.125mg tab ORAL SCH (09:02)
[2019-05-02] MEDS ORDERED: DOBUTamine 250mg/250ml Premix 250 ML IV SCH ×2 (10:45→12:51)
--- NOTE | 2019-05-02 11:10 | NUR ---
NURSE NOTES: Patient was brought back from IR. Notified of right upper arm midline. Noted moderate bleeding. Applied pressure for 5 minutes. Dressing was changed.
--- NOTE | 2019-05-02 11:12 | Pre-Procedure Note/Attestation ---
Pre-Procedure Note/Attestation Complete Prior to Procedure Planned Procedure: right Procedure Narrative: PICC Attestation I attest that I discussed the nature of the procedure; its benefits; risks and complications; and alternatives (and the risks and benefits of such alternatives ), prior to the procedure, with the patient (or the patient's legal site safety representative). I attest that, if there was a reasonable possibility of needing a blood transfusion, the patient (or the patient's legal site safety representative) was given the [facility] standardized written summary, pursuant to the Vadim Toro Blood Safety Act ([place] Health and Safety Code # 1645, as amended). I attest that I re-evaluated the patient just prior to the surgery and that there has been no change in the patient's H&P, except as documented below: Oziel Leblanc MD May 02, 2019 11:12
--- NOTE | 2019-05-02 11:13 | Brief Operative Note ---
Immediate Post Operative Note Operative Note Pre-op Diagnosis: Needs IV ABX Procedure: R arm midline Post-op Diagnosis: same as pre-op Findings: consistent w/pre-op dx studies, other - Central venous occlusion Surgeon: Cori LEBLANC Anesthesia: local Specimen: none Complications: none Condition: stable Fluids: NONE Implant(s) used?: No Oziel Leblanc MD May 02, 2019 11:13
--- NOTE | 2019-05-02 11:25 | General Progress Note ---
Assessment/Plan Status: stable, progressing Assessment/Plan: Assessment - abdominal pain, improved - urinary retention - Thickened colon on CT - Doubt significance - cirrhosis - CM/CHF/ICD - coagulopathy - Anasarca - Poor Px Recommendations - Xifaxan - lactulose - check AFP--> normal - check HBV, HCV - po diet as tolerated Subjective Allergies: Coded Allergies: CODEINE (Verified Allergy, Unknown, 06/17/18) Subjective Above noted tolerating PO (+) BM s/p PICC line Objective Last 24 Hour Vital Signs Date Time Temp Pulse Resp B/P (MAP) Pulse Ox O2 Delivery O2 Flow Rate FiO2 05/02/19 09:02 74 05/02/19 09:02 74 126/64 05/02/19 09:01 126/64 05/02/19 09:00 Nasal Cannula 2.0 05/02/19 08:00 2.0 05/02/19 08:00 98.9 74 20 126/64 (84) 100 05/02/19 04:00 74 05/02/19 04:00 99.6 95 16 110/65 (80) 99 05/02/19 04:00 2.0 05/02/19 00:03 97 Nasal Cannula 2.0 28 05/02/19 00:00 81 05/02/19 00:00 98.9 81 17 111/60 (77) 96 05/02/19 00:00 2.0 05/01/19 21:10 2.0 05/01/19 21:00 Nasal Cannula 2.0 05/01/19 20:47 86 107/65 05/01/19 20:00 78 05/01/19 20:00 99.1 86 18 107/65 (79) 96 05/01/19 16:00 98.0 86 22 143/71 (95) 96 05/01/19 16:00 75 05/01/19 16:00 2.0 05/01/19 14:27 125/77 05/01/19 12:00 74 05/01/19 12:00 98.3 91 20 125/77 (93) 100 05/01/19 12:00 2.0 Intake and Output 05/01/19 05/02/19 19:00 07:00 Intake Total 120 ml Output Total 4000 ml Balance -3880 ml Intake Oral 120 ml Output Urine Total 4000 ml # Voids 1 3 # Bowel Movements 3 Laboratory Tests 05/01/19 19:30: Vancomycin Level Trough 16.9H 05/02/19 05:20: White Blood Count 7.2, Red Blood Count 3.41L, Hemoglobin 10.8L, Hematocrit 35.0L , Mean Corpuscular Volume 103H, Mean Corpuscular Hemoglobin 31.6H, Mean Corpuscular Hemoglobin Concent 30.7L, Red Cell Distribution Width 15.7H, Platelet Count 86L, Mean Platelet Volume 12.0H, Neutrophils (%) (Auto) , Lymphocytes (%) (Auto) , Monocytes (%) (Auto) , Eosinophils (%) (Auto) , Basophils (%) (Auto) , Sodium Level 139, Potassium Level 3.8, Chloride Level 104 , Carbon Dioxide Level 31, Anion Gap 4L, Blood Urea Nitrogen 15, Creatinine 1.1 , Estimat Glomerular Filtration Rate , Glucose Level 146H, Calcium Level 8.7, Magnesium Level 1.4L, Total Bilirubin 1.8H, Direct Bilirubin 0.9H, Aspartate Amino Transf (AST/SGOT) 29, Alanine Aminotransferase (ALT/SGPT) 26, Alkaline Phosphatase 76, Pro-B-Type Natriuretic Peptide 31733I, Total Protein 7.1, Albumin 2.5L, Globulin 4.6, Albumin/Globulin Ratio 0.5L Height (Feet): 5 Height (Inches): 4.00 Weight (Pounds): 148 Lymphatic: fluctuant other Objective Debilitated AA woman NCAT supple CTA RR abd soft, (+) edema ext (+) edema Mauro Stephenson MD May 02, 2019 11:25
--- NOTE | 2019-05-02 12:10 | NUR ---
HAND-OFF: Report given to JAN Vincent. Discussed about right upper arm midline and bleeding stopped and dressing was changed. Belonging checklist signed. Added can on list. Patient on 2l NC, lunch tray brought to bedside. Patient placed on heart monitor.
--- NOTE | 2019-05-02 12:20 | NUR ---
NURSE NOTES: Received pt ,a transfer fr Telemetry,awake,alert in no resp distress ,0n 2 L NC,denies any c/o chest pain or discomfort,AFIB on the monitor,Alarcon cath draining caitlin urine,IV site to BENIGNO MID LINE with bleeding to site,nurse claimed he just change it after insertion by PICC line techs, hob elevated,SR up x2 call hathaway within reach at bedside,bed lock in lowest position will continue with plans of care.
[2019-05-02 12:45] VITALS: BP 88/48
--- NOTE | 2019-05-02 13:04 | Diagnostic Imaging Report ---
Indications: Needs long-term IV access Technique: Ultrasound confirms patent compressible vein. Total sterile technique, including sterile probe cover and sterile gel, hat, mask, sterile gown, large sterile drape, and preparation with 2% chlorhexidine utilized. Local anesthesia with 1% lidocaine. Under real-time ultrasound guidance, puncture right brachial vein using 21-gauge needle, documented and archived, passage 0.018 guidewire under direct fluoroscopy, which would not traverse the central subclavian vein. A 4 Spanish peel-away sheath was inserted. A Kumpe catheter was inserted through the peel-away sheath, with attempts at manipulating the guidewire centrally, unsuccessful. A limited central venogram was then performed, demonstrating complete occlusion of the subclavian vein, collaterals reconstituting the internal jugular and innominate vein. Attempts then made at manipulating the catheter and guidewire through the collaterals so that central access could be achieved. This was unsuccessful. 4 Spanish Bard dual-lumen power PICC cut to a 20 cm. It was inserted through the peel-away sheath. Peel-away sheath and guidewire removed. Catheter fixed to the skin. Both catheter ports aspirated and flushed. Patient tolerated procedure well, without immediate complication. Digital radiograph documents catheter tip position at the level of the mid right axillary vein. Total fluoroscopy time 262 seconds. Total dose area product 0.64078 mGym2 Total number of images: 3 Impression: Attempted placement of right arm PICC. Unable to traverse the central venous system due to occlusion of the right subclavian vein. Short 20 cm 4 Spanish dual-lumen PICC therefore left in for use as a midline
--- NOTE | 2019-05-02 13:25 | Surgery Progress Note ---
Surgery Progress Note Subjective Additional Comments no acute events. labs noted pending serology for Hepatitis lft's stable/improving Objective Last 24 Hour Vital Signs Date Time Temp Pulse Resp B/P (MAP) Pulse Ox O2 Delivery O2 Flow Rate FiO2 05/02/19 12:00 2.0 05/02/19 09:02 74 05/02/19 09:02 74 126/64 05/02/19 09:01 126/64 05/02/19 09:00 Nasal Cannula 2.0 05/02/19 08:00 2.0 05/02/19 08:00 98.9 74 20 126/64 (84) 100 05/02/19 07:44 92 05/02/19 04:00 74 05/02/19 04:00 99.6 95 16 110/65 (80) 99 05/02/19 04:00 2.0 05/02/19 00:03 97 Nasal Cannula 2.0 28 05/02/19 00:00 81 05/02/19 00:00 98.9 81 17 111/60 (77) 96 05/02/19 00:00 2.0 05/01/19 21:10 2.0 05/01/19 21:00 Nasal Cannula 2.0 05/01/19 20:47 86 107/65 05/01/19 20:00 78 05/01/19 20:00 99.1 86 18 107/65 (79) 96 05/01/19 16:00 98.0 86 22 143/71 (95) 96 05/01/19 16:00 75 05/01/19 16:00 2.0 05/01/19 14:27 125/77 I&O Intake and Output 05/01/19 05/02/19 19:00 07:00 Intake Total 120 ml Output Total 4000 ml Balance -3880 ml Intake Oral 120 ml Output Urine Total 4000 ml # Voids 1 3 # Bowel Movements 3 Dressing: dry Wound: other Drains: other Cardiovascular: RSR Respiratory: clear Abdomen: soft, present bowel sounds, non-distended Extremities: edema, no cyanosis Laboratory Tests Test 05/01/19 19:30 05/02/19 05:20 Vancomycin Level Trough 16.9 ug/mL (5.0-12.0) H White Blood Count 7.2 K/UL (4.8-10.8) Red Blood Count 3.41 M/UL (4.20-5.40) L Hemoglobin 10.8 G/DL (12.0-16.0) L Hematocrit 35.0 % (37.0-47.0) L Mean Corpuscular Volume 103 FL (80-99) H Mean Corpuscular Hemoglobin 31.6 PG (27.0-31.0) H Mean Corpuscular Hemoglobin Concent 30.7 G/DL (32.0-36.0) L Red Cell Distribution Width 15.7 % (11.6-14.8) H Platelet Count 86 K/UL (150-450) L Mean Platelet Volume 12.0 FL (6.5-10.1) H Neutrophils (%) (Auto) % (45.0-75.0) Lymphocytes (%) (Auto) % (20.0-45.0) Monocytes (%) (Auto) % (1.0-10.0) Eosinophils (%) (Auto) % (0.0-3.0) Basophils (%) (Auto) % (0.0-2.0) Sodium Level 139 MMOL/L (136-145) Potassium Level 3.8 MMOL/L (3.5-5.1) Chloride Level 104 MMOL/L (98-107) Carbon Dioxide Level 31 MMOL/L (21-32) Anion Gap 4 mmol/L (5-15) L Blood Urea Nitrogen 15 mg/dL (7-18) Creatinine 1.1 MG/DL (0.55-1.30) Estimat Glomerular Filtration Rate mL/min (>60) Glucose Level 146 MG/DL (74-106) H Calcium Level 8.7 MG/DL (8.5-10.1) Magnesium Level 1.4 MG/DL (1.8-2.4) L Total Bilirubin 1.8 MG/DL (0.2-1.0) H Direct Bilirubin 0.9 MG/DL (0.0-0.3) H Aspartate Amino Transf (AST/SGOT) 29 U/L (15-37) Alanine Aminotransferase (ALT/SGPT) 26 U/L (12-78) Alkaline Phosphatase 76 U/L (46-116) Pro-B-Type Natriuretic Peptide 24497 pg/mL (0-125) H Total Protein 7.1 G/DL (6.4-8.2) Albumin 2.5 G/DL (3.4-5.0) L Globulin 4.6 g/dL Albumin/Globulin Ratio 0.5 (1.0-2.7) L Plan Problems: (1) Abdominal pain Assessment & Plan: 83 F with abdominal pain. no n/v. overall decompensated dehydrated will need IV fluids no IV access obtained at this time by multiple nurse attempts see note CT findings with Impression: Anasarca, with diffuse edema of the subcutaneous, mesenteric, abdominal fat, also demonstrated on the prior exam. There is also pleural and peritoneal fluid As mentioned above, bilateral pleural effusions. Increased on the right, similar to the prior exam on the left. Resultant basilar compressive atelectatic changes Cardiomegaly and pacemaker Questionable wall thickening of the distal descending colon. Possibly on the basis of generalized edema, colitis possible Bilateral renal cysts. bowel regimen trend labs appreciate GI input. diet as tolerated thank you will follow with recs (2) Lactic acid acidosis Assessment & Plan: resolved (3) SOB (shortness of breath) Remi Lindquist May 02, 2019 13:25
[2019-05-02] MEDS: DOBUTamine 250mg/250ml Premix 250 ML IV SCH (14:42)
--- NOTE | 2019-05-02 14:45 | NUR ---
NURSE NOTES: Dobutamine drip 5 mcq/kg/min started to BENIGNO midline,tolerated well,V/S monitored.
--- NOTE | 2019-05-02 14:45 | NUR ---
NURSE NOTES: Dobutamine drip 5mcq/kg/min started to BENIGNO midline,V/S monitored,tolerated well.
[2019-05-02] MEDS ORDERED: Vancomycin 1.25gm Premix IVPB SCH (15:00)
[2019-05-02 16:00] VITALS: BP 102/52
--- NOTE | 2019-05-02 16:00 | Progress Note ---
DATE: 05/02/2019 CARDIOLOGY PROGRESS NOTE SUBJECTIVE: The patient is short of breath. She is unable to lie flat. She lost her intravenous access yesterday and the new one is pending. A PICC line will be placed. OBJECTIVE: VITAL SIGNS: Blood pressure 126/64, heart rate 74, respirations 20, and afebrile. Monitored rhythm, atrial fibrillation with demand pacing. NECK: Jugular venous pressure is 10. LUNGS: Bilateral rales. CARDIAC: Irregularly irregular. Normal S1, paradoxically split S2. A 2/6 systolic apical murmur. ABDOMEN: Soft. Slightly distended. EXTREMITIES: A 1+ dependent edema bilaterally. LABORATORY DATA: Notable for potassium 3.8 and magnesium 1.4. Albumin 2.5 and pro-natriuretic peptide remains 16,000. IMPRESSION: 1. Severe systolic congestive heart failure, acute on chronic. 2. Cardiogenic insufficiency. 3. Cardiac defibrillator. 4. Paroxysmal atrial and ventricular arrhythmias. 5. Severe hypomagnesemia. 6. Poor IV access. PLAN: 1. Central venous access. 2. IV magnesium. 3. Continue diuresis with initiation of dobutamine at low dose for inotropic support. 4. Defibrillator function was recently confirmed to be adequate. 5. We will continue to monitor electrolytes, hemoglobin, and glucose parameters. 6. The patient is high risk. Her prognosis is poor due to her severe left ventricular dysfunction. 7. The patient's advanced directives were reviewed. She continues to warrant Full Code. Miguel Mason M.D. DR: HINA JOB#: [id number] CC:
--- NOTE | 2019-05-02 17:38 | General Progress Note ---
Assessment/Plan Problem List: (1) Cirrhosis ICD Codes: K74.60 - Unspecified cirrhosis of liver SNOMED: 91717457 (2) Metabolic acidosis ICD Codes: E87.2 - Acidosis SNOMED: 05279155 (3) CHF (congestive heart failure), NYHA class IV ICD Codes: I50.9 - Heart failure, unspecified SNOMED: 386725134, 240114249 (4) SVT (supraventricular tachycardia) ICD Codes: I47.1 - Supraventricular tachycardia SNOMED: 6314781 (5) Elevated troponin (6) Anemia ICD Codes: D64.9 - Anemia, unspecified SNOMED: 487240117 (7) SOB (shortness of breath) ICD Codes: R06.02 - Shortness of breath SNOMED: 149743683 (8) A-fib ICD Codes: I48.91 - Unspecified atrial fibrillation SNOMED: 24947227 (9) Gastric cancer ICD Codes: C16.9 - Malignant neoplasm of stomach, unspecified SNOMED: 492018666 (10) Paroxysmal a-fib ICD Codes: I48.0 - Paroxysmal a-fib SNOMED: 568658009 Status: stable, progressing Assessment/Plan: tele diuresis with lasix dobutamine per cards repeat cxr lactulose o2 resp rx pt/ot d/w pt sister- pt not compliant with rx/diet at home Subjective ROS Limited/Unobtainable: No Constitutional: Reports: weakness HEENT: Reports: no symptoms Cardiovascular: Reports: chest pain, lightheadedness, palpitations Respiratory: Reports: shortness of breath, SOB with excertion Gastrointestinal/Abdominal: Reports: no symptoms Genitourinary: Reports: no symptoms Neurologic/Psychiatric: Reports: anxiety, depressed Endocrine: Reports: no symptoms Hematologic/Lymphatic: Reports: anemia Allergies: Coded Allergies: CODEINE (Verified Allergy, Unknown, 06/17/18) All Systems: reviewed and negative except above Subjective no real complaints. doesnt really feel any better today. cxr wth decreased pleural effusion. d/w cards. IV pressors recommended to assist with diuresis Objective Last 24 Hour Vital Signs Date Time Temp Pulse Resp B/P (MAP) Pulse Ox O2 Delivery O2 Flow Rate FiO2 05/02/19 16:00 98.9 82 19 102/52 (69) 100 05/02/19 14:42 88/48 05/02/19 13:35 88/48 05/02/19 12:45 98.0 83 20 88/48 (61) 98 05/02/19 12:00 2.0 05/02/19 09:02 74 05/02/19 09:02 74 126/64 05/02/19 09:01 126/64 05/02/19 09:00 Nasal Cannula 2.0 05/02/19 08:00 2.0 05/02/19 08:00 98.9 74 20 126/64 (84) 100 05/02/19 07:44 92 05/02/19 04:00 74 05/02/19 04:00 99.6 95 16 110/65 (80) 99 05/02/19 04:00 2.0 05/02/19 00:03 97 Nasal Cannula 2.0 28 05/02/19 00:00 81 05/02/19 00:00 98.9 81 17 111/60 (77) 96 05/02/19 00:00 2.0 05/01/19 21:10 2.0 05/01/19 21:00 Nasal Cannula 2.0 05/01/19 20:47 86 107/65 05/01/19 20:00 78 05/01/19 20:00 99.1 86 18 107/65 (79) 96 Intake and Output 05/01/19 05/02/19 19:00 07:00 Intake Total 120 ml Output Total 4000 ml Balance -3880 ml Intake Oral 120 ml Output Urine Total 4000 ml # Voids 1 3 # Bowel Movements 3 Laboratory Tests 05/01/19 19:30: Vancomycin Level Trough 16.9H 05/02/19 05:20: White Blood Count 7.2, Red Blood Count 3.41L, Hemoglobin 10.8L, Hematocrit 35.0L , Mean Corpuscular Volume 103H, Mean Corpuscular Hemoglobin 31.6H, Mean Corpuscular Hemoglobin Concent 30.7L, Red Cell Distribution Width 15.7H, Platelet Count 86L, Mean Platelet Volume 12.0H, Neutrophils (%) (Auto) , Lymphocytes (%) (Auto) , Monocytes (%) (Auto) , Eosinophils (%) (Auto) , Basophils (%) (Auto) , Sodium Level 139, Potassium Level 3.8, Chloride Level 104 , Carbon Dioxide Level 31, Anion Gap 4L, Blood Urea Nitrogen 15, Creatinine 1.1 , Estimat Glomerular Filtration Rate , Glucose Level 146H, Calcium Level 8.7, Magnesium Level 1.4L, Total Bilirubin 1.8H, Direct Bilirubin 0.9H, Aspartate Amino Transf (AST/SGOT) 29, Alanine Aminotransferase (ALT/SGPT) 26, Alkaline Phosphatase 76, Pro-B-Type Natriuretic Peptide 03685J, Total Protein 7.1, Albumin 2.5L, Globulin 4.6, Albumin/Globulin Ratio 0.5L Height (Feet): 5 Height (Inches): 4.00 Weight (Pounds): 139 Objective General Appearance: WD/WN, alert Neck: supple Cardiovascular: normal rate, regular rhythm Respiratory/Chest: chest wall non-tender, lungs clear, normal breath sounds, no respiratory distress Abdomen: normal bowel sounds, non tender, soft, no organomegaly Edema: no edema noted Arm (L), no edema noted Arm (R), no edema noted Leg (L), no edema noted Leg (R), no edema noted Pedal (L), no edema noted Pedal (R), no edema noted Generalized Neurologic: emergency management coordinator II-XII grossly normal, alert, oriented x 3, responsive Palomo Frankel MD May 02, 2019 17:38
--- NOTE | 2019-05-02 19:30 | NUR ---
HAND-OFF: Report given to .Eugenie Mccullough RN.
[2019-05-02 20:00] VITALS: BP 124/62
--- NOTE | 2019-05-02 20:00 | NUR ---
NURSE NOTES: Received Pt is resting on the bed awake and alert. On O2 2L via nasal cannula and SaO2 100% noted. Pt has midline on Rt. upper arm area. Noted bleeding on midline dressing area. Changed dressing. On Running with dobutamine 5mcg/kg/hr and magnesium and vital sign is stable. On Alarcon cath and patent and drainage well. Noted rashes on back and abdomen area and Pt is c/o itching sense. Left message to Dr. Frankel and awaiting call back. Placed fall precaution. Will continue to care plan.
[2019-05-02] MEDS: Dyna-Hex 2% Top Sol 2oz TOPIC SCH (20:13)
--- NOTE | 2019-05-02 20:44 | NUR ---
NURSE NOTES: Get call back from Dr. Frankel and new order received.
--- NOTE | 2019-05-02 20:55 | Cardiology Report ---
APPROVED REPORT EKG Measurement Heart [id number] Atrial fibrillation Left posterior fascicular block Possible Anterior infarct, age undetermined T wave abnormality, consider inferior ischemia Abnormal ECG
--- NOTE | 2019-05-02 21:00 | Cardiology Report ---
APPROVED REPORT EKG Measurement Heart [id number] Possible atrial flutter with 2-1 AV block and occasional premature ventricular complexes Possible Anterior infarct, age undetermined Abnormal ECG
[2019-05-03] VITALS: BP 125/61
[2019-05-03 04:00] VITALS: BP 117/72
[2019-05-03] MEDS: DOBUTamine 250mg/250ml Premix 250 ML IV SCH ×2 (04:44→17:47)
[2019-05-03 06:50] LABS: HEMATOCRIT 34.7 % (37.0-47.0); MEAN CORPUSCULAR VOLUME 102 FL (80-99); PLATELET COUNT 93 K/UL (150-450); RED BLOOD COUNT 3.41 M/UL (4.20-5.40); RED CELL DISTRIBUTION WIDTH 15.1 % (11.6-14.8)
--- NOTE | 2019-05-03 07:22 | NUR ---
HAND-OFF: Report given to JAN Buenrostro. Pt is resting on the bed and no sign fo acute distress noted.
--- NOTE | 2019-05-03 07:25 | NUR ---
NURSE NOTES: Received report from Maira Mccullough RN. Patient alert and oriented x 4, able to make needs known. Receiving O2 via nasal cannula @ 2L/min, no s/s of respiratory distress noted. Alarcon catheter patent and draining well. Noted with scattered rashes on neck and torso. Right upper arm midline running dobutamine, @ 5 mcg/kg/hr, asymptomatic. Bed locked in lowest position with side rails up x 3. All needs attended to. Call light within reach. Will continue to monitor.
[2019-05-03 07:28] LABS: ANION GAP 3 mmol/L (5-15); BLOOD UREA NITROGEN 16 mg/dL (7-18); CALCIUM 8.9 MG/DL (8.5-10.1); CARBON DIOXIDE 32 MMOL/L (21-32); CHLORIDE 104 MMOL/L (98-107); CREATININE 1.1 MG/DL (0.55-1.30); POTASSIUM 3.3 MMOL/L (3.5-5.1); SODIUM 139 MMOL/L (136-145)
[2019-05-03 08:00] VITALS: BP 113/55
[2019-05-03] MEDS: Heparin 5000 units/ml inj SUBQ SCH ×2 (09:00→21:00)
[2019-05-03] MEDS: Lactulose 20gm/30ml UDC ORAL SCH ×2 (09:08→17:47)
[2019-05-03] MEDS: Sucralfate 1gm tab ORAL SCH (09:09)
[2019-05-03] MEDS: Carvedilol 6.25mg Tab ORAL SCH ×2 (09:10→21:14)
[2019-05-03] MEDS: Lisinopril 10mg tab ORAL SCH (09:10)
[2019-05-03] MEDS: Digoxin 0.125mg tab ORAL SCH (09:11)
[2019-05-03] MEDS: Spironolactone 25mg tab ORAL SCH (09:11)
--- NOTE | 2019-05-03 11:49 | NUR ---
RD ASSESSMENT & RECOMMENDATIONS SEE CARE ACTIVITY FOR COMPLETE ASSESSMENT DAILY ESTIMATED NEEDS: Needs based on liver dysfunction, cardiac/ 58.6kg 25-30 kcals/kg 6837-8718 total kcals 1-1.5 g protein/kg 59-88 g total protein 20-25 mL/kg 5980-0325 total fluid mLs NUTRITION DIAGNOSIS: Altered nutrition related lab values R/T cirrhosis, CHF, DM as evidenced by elev AST, elev T bili(2.4-> 1.8), elev NH3 (56, not updated), elev BNP (65626-> 86899), mildly elev BGs (100-132). CURRENT DIET:REGULAR, soft easy chew PO DIET RECOMMENDATIONS: LOW NA/ texture as tolerated ADDITIONAL RECOMMENDATIONS: * RECALIBRATE DAILY BEDSCALE WT * Monitor lytes daily on diuretics/ replete as needed (low Mg, K) * H/o DM, monitor BG, need for hypoglycemics and/or diet change * A1C for eval of glycemic control- h/o DM * Monitor PO intake closely -> variable at this time * Glucerna 1 tetra paul daily w/ variable PO intake .
[2019-05-03 12:00] VITALS: BP 112/46
--- NOTE | 2019-05-03 13:39 | Surgery Progress Note ---
Surgery Progress Note Subjective Symptoms: improved, tolerating diet, passing flatus Objective Last 24 Hour Vital Signs Date Time Temp Pulse Resp B/P (MAP) Pulse Ox O2 Delivery O2 Flow Rate FiO2 05/03/19 12:00 98.2 85 22 112/46 (68) 99 05/03/19 09:11 89 05/03/19 09:10 113/55 05/03/19 09:10 89 113/55 05/03/19 08:00 98.8 77 22 113/55 (74) 98 05/03/19 07:49 92 05/03/19 04:44 117/72 05/03/19 04:00 99.0 85 20 117/72 (87) 100 05/03/19 04:00 90 05/03/19 04:00 Nasal Cannula 2.0 05/03/19 00:00 Nasal Cannula 2.0 05/03/19 00:00 99.0 88 20 125/61 (82) 100 05/02/19 23:37 91 05/02/19 20:53 77 124/62 05/02/19 20:00 77 05/02/19 20:00 Nasal Cannula 2.0 05/02/19 20:00 99.0 89 20 124/62 (82) 100 05/02/19 16:00 74 05/02/19 16:00 98.9 82 19 102/52 (69) 100 05/02/19 14:42 88/48 I&O Intake and Output 05/02/19 05/03/19 19:00 07:00 Intake Total 774.5 ml 693.340 ml Output Total 500 ml 2100 ml Balance 274.5 ml -1406.660 ml Intake Oral 480 ml 120 ml IV Total 294.5 ml 573.340 ml Output Urine Total 500 ml 2100 ml Dressing: dry Wound: clean Cardiovascular: RSR Respiratory: clear Abdomen: soft, flat, non-tender, present bowel sounds Extremities: no tenderness, no cyanosis Laboratory Tests Test 05/03/19 05:08 White Blood Count 10.0 K/UL (4.8-10.8) Red Blood Count 3.41 M/UL (4.20-5.40) L Hemoglobin 11.0 G/DL (12.0-16.0) L Hematocrit 34.7 % (37.0-47.0) L Mean Corpuscular Volume 102 FL (80-99) H Mean Corpuscular Hemoglobin 32.3 PG (27.0-31.0) H Mean Corpuscular Hemoglobin Concent 31.7 G/DL (32.0-36.0) L Red Cell Distribution Width 15.1 % (11.6-14.8) H Platelet Count 93 K/UL (150-450) L Mean Platelet Volume 12.6 FL (6.5-10.1) H Neutrophils (%) (Auto) % (45.0-75.0) Lymphocytes (%) (Auto) % (20.0-45.0) Monocytes (%) (Auto) % (1.0-10.0) Eosinophils (%) (Auto) % (0.0-3.0) Basophils (%) (Auto) % (0.0-2.0) Differential Total Cells Counted 100 Neutrophils % (Manual) 79 % (45-75) H Lymphocytes % (Manual) 9 % (20-45) L Monocytes % (Manual) 9 % (1-10) Eosinophils % (Manual) 2 % (0-3) Basophils % (Manual) 1 % (0-2) Band Neutrophils 0 % (0-8) Platelet Estimate Decreased L Platelet Morphology Normal Hypochromasia 1+ Macrocytosis 1+ Sodium Level 139 MMOL/L (136-145) Potassium Level 3.3 MMOL/L (3.5-5.1) L Chloride Level 104 MMOL/L (98-107) Carbon Dioxide Level 32 MMOL/L (21-32) Anion Gap 3 mmol/L (5-15) L Blood Urea Nitrogen 16 mg/dL (7-18) Creatinine 1.1 MG/DL (0.55-1.30) Estimat Glomerular Filtration Rate mL/min (>60) Glucose Level 100 MG/DL (74-106) Calcium Level 8.9 MG/DL (8.5-10.1) Magnesium Level 1.9 MG/DL (1.8-2.4) Thyroid Stimulating Hormone (TSH) 3.183 uiU/mL (0.358-3.740) Plan Problems: (1) Abdominal pain Assessment & Plan: 83 F with abdominal pain. no n/v. overall decompensated dehydrated will need IV fluids no IV access obtained at this time by multiple nurse attempts see note CT findings with Impression: Anasarca, with diffuse edema of the subcutaneous, mesenteric, abdominal fat, also demonstrated on the prior exam. There is also pleural and peritoneal fluid As mentioned above, bilateral pleural effusions. Increased on the right, similar to the prior exam on the left. Resultant basilar compressive atelectatic changes Cardiomegaly and pacemaker Questionable wall thickening of the distal descending colon. Possibly on the basis of generalized edema, colitis possible Bilateral renal cysts. bowel regimen trend labs appreciate GI input. diet as tolerated thank you will follow with recs (2) Lactic acid acidosis Assessment & Plan: resolved (3) SOB (shortness of breath) Remi Lindquist May 03, 2019 13:39
[2019-05-03 16:00] VITALS: BP 110/45
--- NOTE | 2019-05-03 17:21 | NUR ---
CASE MANAGEMENT:REVIEW 05/03/19 SI: SEVERE CHF. CARDIOGENIC INSUFF PAROXYSMAL ATRIAL AND VENTRICULAR ARRHYTHMIAS 99.0 89 22 110/45 95% ON 2L/NC PLT-93 K-3.3 IS: DOBUTAMINE GTT IV VANCOMYCIN Q24 IV LASIX Q12 HEPARIN SQ Q12 COREG PO Q12 ALDACTONE PO QD LISINOPRIL PO QD DIGOXIN PO QD LACTULOSE PO BID : STEP DOWN UNIT DCP: FROM HOME
--- NOTE | 2019-05-03 18:33 | General Progress Note ---
Assessment/Plan Problem List: (1) Cirrhosis ICD Codes: K74.60 - Unspecified cirrhosis of liver SNOMED: 62070654 (2) Metabolic acidosis ICD Codes: E87.2 - Acidosis SNOMED: 41256589 (3) CHF (congestive heart failure), NYHA class IV ICD Codes: I50.9 - Heart failure, unspecified SNOMED: 492370513, 777930058 (4) SVT (supraventricular tachycardia) ICD Codes: I47.1 - Supraventricular tachycardia SNOMED: 2530910 (5) Elevated troponin (6) Anemia ICD Codes: D64.9 - Anemia, unspecified SNOMED: 709466708 (7) SOB (shortness of breath) ICD Codes: R06.02 - Shortness of breath SNOMED: 069119358 (8) A-fib ICD Codes: I48.91 - Unspecified atrial fibrillation SNOMED: 14568522 (9) Gastric cancer ICD Codes: C16.9 - Malignant neoplasm of stomach, unspecified SNOMED: 464198006 (10) Paroxysmal a-fib ICD Codes: I48.0 - Paroxysmal a-fib SNOMED: 248124818 Status: stable, progressing Assessment/Plan: tele diuresis with lasix monitor lytes replace k dobutamine per cards repeat cxr lactulose o2 resp rx pt/ot d/w pt sister- pt not compliant with rx/diet at home Subjective ROS Limited/Unobtainable: No Constitutional: Reports: malaise, weakness HEENT: Reports: no symptoms Cardiovascular: Reports: no symptoms Respiratory: Reports: shortness of breath Gastrointestinal/Abdominal: Reports: abdominal pain Genitourinary: Reports: no symptoms Neurologic/Psychiatric: Reports: anxiety, depressed Endocrine: Reports: no symptoms Hematologic/Lymphatic: Reports: no symptoms Allergies: Coded Allergies: CODEINE (Verified Allergy, Unknown, 06/17/18) All Systems: reviewed and negative except above Subjective no real complaints. feels better today. on iv dobutamine. good diuresis Objective Last 24 Hour Vital Signs Date Time Temp Pulse Resp B/P (MAP) Pulse Ox O2 Delivery O2 Flow Rate FiO2 05/03/19 17:47 110/45 05/03/19 16:00 Nasal Cannula 2.0 05/03/19 16:00 77 05/03/19 16:00 99.0 89 22 110/45 (66) 95 05/03/19 12:00 98.2 85 22 112/46 (68) 99 05/03/19 12:00 Nasal Cannula 2.0 05/03/19 11:43 88 05/03/19 09:11 89 05/03/19 09:10 113/55 05/03/19 09:10 89 113/55 05/03/19 08:00 98.8 77 22 113/55 (74) 98 05/03/19 08:00 Nasal Cannula 2.0 05/03/19 07:49 92 05/03/19 04:44 117/72 05/03/19 04:00 99.0 85 20 117/72 (87) 100 05/03/19 04:00 90 05/03/19 04:00 Nasal Cannula 2.0 05/03/19 00:00 Nasal Cannula 2.0 05/03/19 00:00 99.0 88 20 125/61 (82) 100 05/02/19 23:37 91 05/02/19 20:53 77 124/62 05/02/19 20:00 77 05/02/19 20:00 Nasal Cannula 2.0 05/02/19 20:00 99.0 89 20 124/62 (82) 100 Intake and Output 05/02/19 05/03/19 19:00 07:00 Intake Total 774.5 ml 693.340 ml Output Total 500 ml 2100 ml Balance 274.5 ml -1406.660 ml Intake Oral 480 ml 120 ml IV Total 294.5 ml 573.340 ml Output Urine Total 500 ml 2100 ml Laboratory Tests 05/03/19 05:08: White Blood Count 10.0, Red Blood Count 3.41L, Hemoglobin 11.0L, Hematocrit 34.7L, Mean Corpuscular Volume 102H, Mean Corpuscular Hemoglobin 32.3H, Mean Corpuscular Hemoglobin Concent 31.7L, Red Cell Distribution Width 15.1H, Platelet Count 93L, Mean Platelet Volume 12.6H, Neutrophils (%) (Auto) , Lymphocytes (%) (Auto) , Monocytes (%) (Auto) , Eosinophils (%) (Auto) , Basophils (%) (Auto) , Differential Total Cells Counted 100, Neutrophils % ( Manual) 79H, Lymphocytes % (Manual) 9L, Monocytes % (Manual) 9, Eosinophils % ( Manual) 2, Basophils % (Manual) 1, Band Neutrophils 0, Platelet Estimate DecreasedL, Platelet Morphology Normal, Hypochromasia 1+, Macrocytosis 1+, Sodium Level 139, Potassium Level 3.3L, Chloride Level 104, Carbon Dioxide Level 32, Anion Gap 3L, Blood Urea Nitrogen 16, Creatinine 1.1, Estimat Glomerular Filtration Rate , Glucose Level 100, Calcium Level 8.9, Magnesium Level 1.9, Thyroid Stimulating Hormone (TSH) 3.183 Height (Feet): 5 Height (Inches): 4.00 Weight (Pounds): 148 Objective General Appearance: WD/WN, alert Neck: supple Cardiovascular: normal rate, regular rhythm Respiratory/Chest: chest wall non-tender, lungs clear, normal breath sounds, no respiratory distress Abdomen: normal bowel sounds, non tender, soft, no organomegaly Edema: no edema noted Arm (L), no edema noted Arm (R), no edema noted Leg (L), no edema noted Leg (R), no edema noted Pedal (L), no edema noted Pedal (R), no edema noted Generalized Neurologic: master control 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
--- NOTE | 2019-05-03 19:19 | NUR ---
HAND-OFF: Report given to Mary Jo Martin RN.
--- NOTE | 2019-05-03 19:30 | NUR ---
NURSE NOTES: Received report from JAN Buenrostro. Patient is sitting on the chair. Alert and oriented x4. On O2 2L/min via NA. No acute distress/SOB noted. Patient denies any pain/discomfort at this time. Alarcon intact and draining by gravity with yellow color urine. Dobutamine drip running at 5mcg/kg/min=18.9ml/hr via right upper arm midline. Call light placed in easy reach. Family member is at the bedside. Will continue plan of care.
[2019-05-03 20:00] VITALS: BP 101/60
[2019-05-03] MEDS: Dyna-Hex 2% Top Sol 2oz TOPIC SCH (21:14)
--- NOTE | 2019-05-03 21:28 | General Progress Note ---
Assessment/Plan Status: stable, progressing Assessment/Plan: Assessment - abdominal pain, improved - urinary retention - Thickened colon on CT - Doubt significance - cirrhosis - CM/CHF/ICD - coagulopathy - Anasarca - Poor Px Recommendations - Xifaxan - lactulose - check AFP--> normal - check HBV, HCV --> negative - po diet as tolerated Subjective Allergies: Coded Allergies: CODEINE (Verified Allergy, Unknown, 06/17/18) Subjective Above noted tolerating PO (+) BM tolerating PO on Dolbutamine gtt Objective Last 24 Hour Vital Signs Date Time Temp Pulse Resp B/P (MAP) Pulse Ox O2 Delivery O2 Flow Rate FiO2 05/03/19 21:14 84 101/60 05/03/19 20:00 98.8 85 22 101/60 (74) 95 05/03/19 20:00 84 05/03/19 17:47 110/45 05/03/19 16:00 Nasal Cannula 2.0 05/03/19 16:00 77 05/03/19 16:00 99.0 89 22 110/45 (66) 95 05/03/19 12:00 98.2 85 22 112/46 (68) 99 05/03/19 12:00 Nasal Cannula 2.0 05/03/19 11:43 88 05/03/19 09:11 89 05/03/19 09:10 113/55 05/03/19 09:10 89 113/55 05/03/19 08:00 98.8 77 22 113/55 (74) 98 05/03/19 08:00 Nasal Cannula 2.0 05/03/19 07:49 92 05/03/19 04:44 117/72 05/03/19 04:00 99.0 85 20 117/72 (87) 100 05/03/19 04:00 90 05/03/19 04:00 Nasal Cannula 2.0 05/03/19 00:00 Nasal Cannula 2.0 05/03/19 00:00 99.0 88 20 125/61 (82) 100 05/02/19 23:37 91 Intake and Output 05/02/19 05/03/19 19:00 07:00 Intake Total 774.5 ml 693.340 ml Output Total 500 ml 2100 ml Balance 274.5 ml -1406.660 ml Intake Oral 480 ml 120 ml IV Total 294.5 ml 573.340 ml Output Urine Total 500 ml 2100 ml Laboratory Tests 05/03/19 05:08: White Blood Count 10.0, Red Blood Count 3.41L, Hemoglobin 11.0L, Hematocrit 34.7L, Mean Corpuscular Volume 102H, Mean Corpuscular Hemoglobin 32.3H, Mean Corpuscular Hemoglobin Concent 31.7L, Red Cell Distribution Width 15.1H, Platelet Count 93L, Mean Platelet Volume 12.6H, Neutrophils (%) (Auto) , Lymphocytes (%) (Auto) , Monocytes (%) (Auto) , Eosinophils (%) (Auto) , Basophils (%) (Auto) , Differential Total Cells Counted 100, Neutrophils % ( Manual) 79H, Lymphocytes % (Manual) 9L, Monocytes % (Manual) 9, Eosinophils % ( Manual) 2, Basophils % (Manual) 1, Band Neutrophils 0, Platelet Estimate DecreasedL, Platelet Morphology Normal, Hypochromasia 1+, Macrocytosis 1+, Sodium Level 139, Potassium Level 3.3L, Chloride Level 104, Carbon Dioxide Level 32, Anion Gap 3L, Blood Urea Nitrogen 16, Creatinine 1.1, Estimat Glomerular Filtration Rate , Glucose Level 100, Calcium Level 8.9, Magnesium Level 1.9, Thyroid Stimulating Hormone (TSH) 3.183 Height (Feet): 5 Height (Inches): 4.00 Weight (Pounds): 148 Objective Debilitated AA woman NCAT supple CTA RR abd soft, (+) edema ext (+) edema Mauro Stephenson MD May 03, 2019 21:28
--- NOTE | 2019-05-03 23:05 | NUR ---
NURSE NOTES: Patient asleep. No acute distress/SOB noted. Will continue plan of care.
[2019-05-04] VITALS: BP 102/59
--- NOTE | 2019-05-04 00:56 | NUR ---
HAND-OFF: Report given to JAN Olivares. Endorsed plan of care.
--- NOTE | 2019-05-04 01:17 | NUR ---
NURSE NOTES: Received report from JAN Faulkner. Pt's resting in bed, asleep, with eyes closed, in no acute distress. VS stable. Dobutamine running at 5mcg/kg/min. Will continue to monitor.
--- NOTE | 2019-05-04 01:45 | Progress Note ---
DATE: 05/03/2019 CARDIOLOGY PROGRESS NOTE SUBJECTIVE: The patient remains with critical condition. IV dobutamine was started. Urine output has improved. The patient is still short of breath with any activity. OBJECTIVE: VITAL SIGNS: Blood pressure 110/45, pulse 89, respiratory rate 22. LUNGS: Bilateral breath sounds. HEART: Regular rhythm and rate. Normal S1, S2. A 1/6 systolic murmur at apex. ABDOMEN: Soft. EXTREMITIES: No edema. IMPRESSION: 1. Cardiogenic shock. 2. Acute on chronic systolic congestive heart failure. 3. Cardiac defibrillator. 4. Paroxysmal atrial and ventricular arrhythmias. 5. Hypokalemia. PLAN: 1. Potassium replacement. 2. Continue dobutamine and diuresis. 3. Anti-failure therapy to be titrated. 4. Replace potassium. 5. Continue current cardiovascular regimen. Miguel Mason M.D. DR: GLORIA JOB#: [id number] CC:
[2019-05-04 04:00] VITALS: BP 100/60
[2019-05-04 04:39] LABS: HEMATOCRIT 37.7 % (37.0-47.0); HEMOGLOBIN 11.5 G/DL (12.0-16.0); MEAN CORPUSCULAR VOLUME 103 FL (80-99); PLATELET COUNT 84 K/UL (150-450); RED BLOOD COUNT 3.65 M/UL (4.20-5.40); RED CELL DISTRIBUTION WIDTH 15.6 % (11.6-14.8); WHITE BLOOD COUNT 11.7 K/UL (4.8-10.8)
[2019-05-04 04:53] LABS: ALANINE AMINOTRANSFERASE 23 U/L (12-78); ALBUMIN 2.4 G/DL (3.4-5.0); ALBUMIN/GLOBULIN RATIO 0.6 (1.0-2.7); ALKALINE PHOSPHATASE 80 U/L (46-116); ANION GAP 8 mmol/L (5-15); ASPARTATE AMINO TRANSFERASE 40 U/L (15-37); BILIRUBIN,TOTAL 2.5 MG/DL (0.2-1.0); BLOOD UREA NITROGEN 15 mg/dL (7-18); CARBON DIOXIDE 29 MMOL/L (21-32); CHLORIDE 102 MMOL/L (98-107); CREATININE 0.9 MG/DL (0.55-1.30); POTASSIUM 4.4 MMOL/L (3.5-5.1); SODIUM 139 MMOL/L (136-145)
[2019-05-04 04:57] LABS: BILIRUBIN,DIRECT 0.4 MG/DL (0.0-0.3)
--- NOTE | 2019-05-04 07:15 | NUR ---
NURSE NOTES: RECEIVED BED SIDE REPORT FROM KIMBERLY CASH CONTROLLER OF NOC SHIFT. RECEIVED PT WITH HOB ELEVATED 45 DEGREE AWAKE AND ALERT VERY PLEASANT .PT RECEIVING DOBUTAMINE DRIP RUNNING @ 5MCG/KG/MIN /18.9ML/HR CONNECTED ON RT UA MID-LINE INFUSING WELL .FULL BODY ASSESSMENT DONE.WILL CONT TO MONITOR.
--- NOTE | 2019-05-04 07:30 | NUR ---
HAND-OFF: Report given to JAN Iverson.
[2019-05-04] MEDS: DOBUTamine 250mg/250ml Premix 250 ML IV SCH (07:48)
[2019-05-04 08:00] VITALS: BP 91/50
--- NOTE | 2019-05-04 08:33 | General Progress Note ---
Assessment/Plan Status: stable, progressing Assessment/Plan: Assessment - abdominal pain, improved - urinary retention - Thickened colon on CT - Doubt significance - cirrhosis - CM/CHF/ICD - coagulopathy - Anasarca - Poor Px Recommendations - Xifaxan - lactulose - check AFP--> normal - check HBV, HCV --> negative - po diet as tolerated Subjective Allergies: Coded Allergies: CODEINE (Verified Allergy, Unknown, 06/17/18) Subjective Above noted tolerating PO (+) BM tolerating PO no abd pain Objective Last 24 Hour Vital Signs Date Time Temp Pulse Resp B/P (MAP) Pulse Ox O2 Delivery O2 Flow Rate FiO2 05/04/19 07:48 100/60 05/04/19 04:00 Nasal Cannula 2.0 05/04/19 04:00 98.9 83 18 100/60 (73) 98 05/04/19 03:23 83 05/04/19 00:00 86 05/04/19 00:00 Nasal Cannula 2.0 05/04/19 00:00 98.9 85 18 102/59 (73) 98 05/03/19 21:14 84 101/60 05/03/19 20:00 98.8 85 22 101/60 (74) 95 05/03/19 20:00 84 05/03/19 20:00 Nasal Cannula 2.0 05/03/19 17:47 110/45 05/03/19 16:00 Nasal Cannula 2.0 05/03/19 16:00 77 05/03/19 16:00 99.0 89 22 110/45 (66) 95 05/03/19 12:00 98.2 85 22 112/46 (68) 99 05/03/19 12:00 Nasal Cannula 2.0 05/03/19 11:43 88 05/03/19 09:11 89 05/03/19 09:10 113/55 05/03/19 09:10 89 113/55 Intake and Output 05/03/19 05/04/19 19:00 07:00 Intake Total 901.485 ml 509.0 ml Output Total 1200 ml 3600 ml Balance -298.515 ml -3091.0 ml Intake Oral 400 ml 320 ml IV Total 501.485 ml 189.0 ml Output Urine Total 1200 ml 3600 ml # Bowel Movements 5 Laboratory Tests 05/04/19 04:30: White Blood Count 11.7H, Red Blood Count 3.65L, Hemoglobin 11.5L, Hematocrit 37.7, Mean Corpuscular Volume 103H, Mean Corpuscular Hemoglobin 31.4H, Mean Corpuscular Hemoglobin Concent 30.5L, Red Cell Distribution Width 15.6H, Platelet Count 84L, Mean Platelet Volume 9.9, Neutrophils (%) (Auto) , Lymphocytes (%) (Auto) , Monocytes (%) (Auto) , Eosinophils (%) (Auto) , Basophils (%) (Auto) , Sodium Level 139, Potassium Level 4.4, Chloride Level 102 , Carbon Dioxide Level 29, Anion Gap 8, Blood Urea Nitrogen 15, Creatinine 0.9, Estimat Glomerular Filtration Rate , Glucose Level 101, Calcium Level 9.0, Total Bilirubin 2.5H, Direct Bilirubin 0.4H, Aspartate Amino Transf (AST/SGOT) 40H, Alanine Aminotransferase (ALT/SGPT) 23, Alkaline Phosphatase 80, Pro-B- Type Natriuretic Peptide 32196Z, Total Protein 6.7, Albumin 2.4L, Globulin 4.3, Albumin/Globulin Ratio 0.6L Height (Feet): 5 Height (Inches): 4.00 Weight (Pounds): 148 Objective Debilitated AA woman NCAT supple CTA RR abd soft, (+) edema ext (+) edema Mauro Stephenson MD May 04, 2019 08:33
--- NOTE | 2019-05-04 08:48 | General Progress Note ---
Assessment/Plan Problem List: (1) Cirrhosis ICD Codes: K74.60 - Unspecified cirrhosis of liver SNOMED: 08673301 (2) Metabolic acidosis ICD Codes: E87.2 - Acidosis SNOMED: 65307575 (3) CHF (congestive heart failure), NYHA class IV ICD Codes: I50.9 - Heart failure, unspecified SNOMED: 259309892, 685668426 (4) SVT (supraventricular tachycardia) ICD Codes: I47.1 - Supraventricular tachycardia SNOMED: 1012984 (5) Elevated troponin (6) Anemia ICD Codes: D64.9 - Anemia, unspecified SNOMED: 157771021 (7) SOB (shortness of breath) ICD Codes: R06.02 - Shortness of breath SNOMED: 160554122 (8) A-fib ICD Codes: I48.91 - Unspecified atrial fibrillation SNOMED: 10343094 (9) Gastric cancer ICD Codes: C16.9 - Malignant neoplasm of stomach, unspecified SNOMED: 946673887 (10) Paroxysmal a-fib ICD Codes: I48.0 - Paroxysmal a-fib SNOMED: 510854078 Status: stable, progressing Assessment/Plan: tele diuresis with lasix monitor lytes dobutamine per cards lactulose o2 resp rx pt/ot d/w pt sister- pt not compliant with rx/diet at home Subjective ROS Limited/Unobtainable: No Constitutional: Reports: malaise, weakness HEENT: Reports: no symptoms Cardiovascular: Reports: no symptoms Respiratory: Reports: cough, shortness of breath Gastrointestinal/Abdominal: Reports: abdominal pain Genitourinary: Reports: no symptoms Neurologic/Psychiatric: Reports: anxiety, depressed Endocrine: Reports: no symptoms Hematologic/Lymphatic: Reports: no symptoms Allergies: Coded Allergies: CODEINE (Verified Allergy, Unknown, 06/17/18) All Systems: reviewed and negative except above Subjective no real complaints. feels better today. on iv dobutamine. good diuresis Objective Last 24 Hour Vital Signs Date Time Temp Pulse Resp B/P (MAP) Pulse Ox O2 Delivery O2 Flow Rate FiO2 05/04/19 07:48 100/60 05/04/19 04:00 Nasal Cannula 2.0 05/04/19 04:00 98.9 83 18 100/60 (73) 98 05/04/19 03:23 83 05/04/19 00:00 86 7/24/19 00:00 Nasal Cannula 2.0 05/04/19 00:00 98.9 85 18 102/59 (73) 98 05/03/19 21:14 84 101/60 05/03/19 20:00 98.8 85 22 101/60 (74) 95 05/03/19 20:00 84 05/03/19 20:00 Nasal Cannula 2.0 05/03/19 17:47 110/45 05/03/19 16:00 Nasal Cannula 2.0 05/03/19 16:00 77 05/03/19 16:00 99.0 89 22 110/45 (66) 95 05/03/19 12:00 98.2 85 22 112/46 (68) 99 05/03/19 12:00 Nasal Cannula 2.0 05/03/19 11:43 88 05/03/19 09:11 89 05/03/19 09:10 113/55 05/03/19 09:10 89 113/55 Intake and Output 05/03/19 05/04/19 19:00 07:00 Intake Total 901.485 ml 509.0 ml Output Total 1200 ml 3600 ml Balance -298.515 ml -3091.0 ml Intake Oral 400 ml 320 ml IV Total 501.485 ml 189.0 ml Output Urine Total 1200 ml 3600 ml # Bowel Movements 5 Laboratory Tests 05/04/19 04:30: White Blood Count 11.7H, Red Blood Count 3.65L, Hemoglobin 11.5L, Hematocrit 37.7, Mean Corpuscular Volume 103H, Mean Corpuscular Hemoglobin 31.4H, Mean Corpuscular Hemoglobin Concent 30.5L, Red Cell Distribution Width 15.6H, Platelet Count 84L, Mean Platelet Volume 9.9, Neutrophils (%) (Auto) , Lymphocytes (%) (Auto) , Monocytes (%) (Auto) , Eosinophils (%) (Auto) , Basophils (%) (Auto) , Sodium Level 139, Potassium Level 4.4, Chloride Level 102 , Carbon Dioxide Level 29, Anion Gap 8, Blood Urea Nitrogen 15, Creatinine 0.9, Estimat Glomerular Filtration Rate , Glucose Level 101, Calcium Level 9.0, Total Bilirubin 2.5H, Direct Bilirubin 0.4H, Aspartate Amino Transf (AST/SGOT) 40H, Alanine Aminotransferase (ALT/SGPT) 23, Alkaline Phosphatase 80, Pro-B- Type Natriuretic Peptide 70173E, Total Protein 6.7, Albumin 2.4L, Globulin 4.3, Albumin/Globulin Ratio 0.6L Height (Feet): 5 Height (Inches): 4.00 Weight (Pounds): 148 Objective General Appearance: WD/WN, alert Neck: supple Cardiovascular: normal rate, regular rhythm Respiratory/Chest: chest wall non-tender, lungs clear, normal breath sounds, no respiratory distress Abdomen: normal bowel sounds, non tender, soft, no organomegaly Edema: no edema noted Arm (L), no edema noted Arm (R), no edema noted Leg (L), no edema noted Leg (R), no edema noted Pedal (L), no edema noted Pedal (R), no edema noted Generalized Neurologic: toilet attendant II-XII grossly normal, alert, oriented x 3, responsive Palomo Frankel MD May 04, 2019 08:48
[2019-05-04] MEDS: Lisinopril 10mg tab ORAL SCH (09:00)
[2019-05-04] MEDS: Heparin 5000 units/ml inj SUBQ SCH ×2 (09:00→20:29)
[2019-05-04] MEDS: Sucralfate 1gm tab ORAL SCH (09:54)
[2019-05-04] MEDS: Lactulose 20gm/30ml UDC ORAL SCH ×2 (09:55→17:26)
[2019-05-04] MEDS: Digoxin 0.125mg tab ORAL SCH (09:55)
[2019-05-04] MEDS: Carvedilol 6.25mg Tab ORAL SCH ×2 (09:55→20:29)
[2019-05-04] MEDS: Spironolactone 25mg tab ORAL SCH (09:56)
[2019-05-04 12:00] VITALS: BP 124/64
--- NOTE | 2019-05-04 15:47 | Surgery Progress Note ---
Surgery Progress Note Subjective Symptoms: improved, tolerating diet, voiding well, passing flatus Objective Last 24 Hour Vital Signs Date Time Temp Pulse Resp B/P (MAP) Pulse Ox O2 Delivery O2 Flow Rate FiO2 05/04/19 12:00 97.2 83 21 124/64 (84) 99 05/04/19 09:55 87 05/04/19 09:55 87 91/50 05/04/19 09:00 91/50 05/04/19 08:00 98.8 87 18 91/50 (64) 99 05/04/19 08:00 90 05/04/19 08:00 Nasal Cannula 2.0 05/04/19 07:48 100/60 05/04/19 04:00 Nasal Cannula 2.0 05/04/19 04:00 98.9 83 18 100/60 (73) 98 05/04/19 03:23 83 05/04/19 00:00 86 05/04/19 00:00 Nasal Cannula 2.0 05/04/19 00:00 98.9 85 18 102/59 (73) 98 05/03/19 21:14 84 101/60 05/03/19 20:00 98.8 85 22 101/60 (74) 95 05/03/19 20:00 84 05/03/19 20:00 Nasal Cannula 2.0 05/03/19 17:47 110/45 05/03/19 16:00 Nasal Cannula 2.0 05/03/19 16:00 77 05/03/19 16:00 99.0 89 22 110/45 (66) 95 I&O Intake and Output 05/03/19 05/04/19 19:00 07:00 Intake Total 901.485 ml 509.0 ml Output Total 1200 ml 3600 ml Balance -298.515 ml -3091.0 ml Intake Oral 400 ml 320 ml IV Total 501.485 ml 189.0 ml Output Urine Total 1200 ml 3600 ml # Bowel Movements 5 Dressing: dry Wound: clean Cardiovascular: RSR Respiratory: clear Abdomen: soft, non-tender, present bowel sounds Extremities: no tenderness, no cyanosis Laboratory Tests Test 05/04/19 04:30 White Blood Count 11.7 K/UL (4.8-10.8) H Red Blood Count 3.65 M/UL (4.20-5.40) L Hemoglobin 11.5 G/DL (12.0-16.0) L Hematocrit 37.7 % (37.0-47.0) Mean Corpuscular Volume 103 FL (80-99) H Mean Corpuscular Hemoglobin 31.4 PG (27.0-31.0) H Mean Corpuscular Hemoglobin Concent 30.5 G/DL (32.0-36.0) L Red Cell Distribution Width 15.6 % (11.6-14.8) H Platelet Count 84 K/UL (150-450) L Mean Platelet Volume 9.9 FL (6.5-10.1) Neutrophils (%) (Auto) % (45.0-75.0) Lymphocytes (%) (Auto) % (20.0-45.0) Monocytes (%) (Auto) % (1.0-10.0) Eosinophils (%) (Auto) % (0.0-3.0) Basophils (%) (Auto) % (0.0-2.0) Sodium Level 139 MMOL/L (136-145) Potassium Level 4.4 MMOL/L (3.5-5.1) Chloride Level 102 MMOL/L (98-107) Carbon Dioxide Level 29 MMOL/L (21-32) Anion Gap 8 mmol/L (5-15) Blood Urea Nitrogen 15 mg/dL (7-18) Creatinine 0.9 MG/DL (0.55-1.30) Estimat Glomerular Filtration Rate mL/min (>60) Glucose Level 101 MG/DL (74-106) Calcium Level 9.0 MG/DL (8.5-10.1) Total Bilirubin 2.5 MG/DL (0.2-1.0) H Direct Bilirubin 0.4 MG/DL (0.0-0.3) H Aspartate Amino Transf (AST/SGOT) 40 U/L (15-37) H Alanine Aminotransferase (ALT/SGPT) 23 U/L (12-78) Alkaline Phosphatase 80 U/L (46-116) Pro-B-Type Natriuretic Peptide 10912 pg/mL (0-125) H Total Protein 6.7 G/DL (6.4-8.2) Albumin 2.4 G/DL (3.4-5.0) L Globulin 4.3 g/dL Albumin/Globulin Ratio 0.6 (1.0-2.7) L Plan Problems: (1) Abdominal pain Assessment & Plan: 83 F with abdominal pain. no n/v. overall decompensated dehydrated will need IV fluids no IV access obtained at this time by multiple nurse attempts see note CT findings with Impression: Anasarca, with diffuse edema of the subcutaneous, mesenteric, abdominal fat, also demonstrated on the prior exam. There is also pleural and peritoneal fluid As mentioned above, bilateral pleural effusions. Increased on the right, similar to the prior exam on the left. Resultant basilar compressive atelectatic changes Cardiomegaly and pacemaker Questionable wall thickening of the distal descending colon. Possibly on the basis of generalized edema, colitis possible Bilateral renal cysts. bowel regimen trend labs appreciate GI input. diet as tolerated thank you will follow with recs (2) Lactic acid acidosis Assessment & Plan: resolved (3) SOB (shortness of breath) Remi Lindquist May 04, 2019 15:47
[2019-05-04 16:00] VITALS: BP 108/58
--- NOTE | 2019-05-04 19:00 | NUR ---
HAND-OFF: Report given to .EILEEN MONTOYA.
--- NOTE | 2019-05-04 19:15 | NUR ---
NURSE NOTES: Received patient from JAN PERRY. Will continue plan of care.
[2019-05-04 20:00] VITALS: BP 112/59
[2019-05-04] MEDS: Dyna-Hex 2% Top Sol 2oz TOPIC SCH (20:28)
[2019-05-05] VITALS: BP 107/54
[2019-05-05] MEDS: DOBUTamine 250mg/250ml Premix 250 ML IV SCH ×2 (00:19→14:00)
[2019-05-05 04:00] VITALS: BP 108/56
--- NOTE | 2019-05-05 07:16 | NUR ---
NURSE NOTES: Received report from JAN Cameron. Patient is resting in bed, in stable condition. No s/sx of SOB, breathing is even and unlabored. Dobutamine IV infusion infusing at prescribed settings. Bed is in lowest position, brakes engaged. Call light is kept within easy reach. Will continue to monitor patient.
[2019-05-05 08:00] VITALS: BP 119/52
[2019-05-05] MEDS: Lactulose 20gm/30ml UDC ORAL SCH ×3 (08:49→18:00)
[2019-05-05] MEDS: Sucralfate 1gm tab ORAL SCH (08:50)
[2019-05-05] MEDS: Spironolactone 25mg tab ORAL SCH (08:50)
[2019-05-05] MEDS: Carvedilol 6.25mg Tab ORAL SCH ×2 (08:50→20:06)
[2019-05-05] MEDS: Lisinopril 10mg tab ORAL SCH (08:50)
[2019-05-05] MEDS: Digoxin 0.125mg tab ORAL SCH (08:50)
[2019-05-05] MEDS: Heparin 5000 units/ml inj SUBQ SCH ×2 (08:51→20:00)
--- NOTE | 2019-05-05 09:00 | NUR ---
NURSE NOTES: Contacted and informed Dr. Frnakel that patient has sporadic redness starting from neck to perianal area, pt c/o pain, pt states does not know of any other allergies besides codeine. Patient is on Nyastatin cream topical BID. Awaiting Dr. Frankel's reply. Will continue to monitor patient.
--- NOTE | 2019-05-05 09:50 | NUR ---
NURSE NOTES: Patient refused scheduled lactulose. Explained to patient risks and possible negative outcomes of not taking lactulose x 3, patient continued to refuse. Patient is alert and oriented x 4, respected patient rights. Will continue to monitor patient.
[2019-05-05 12:00] VITALS: BP 116/53
--- NOTE | 2019-05-05 12:17 | Surgery Progress Note ---
Surgery Progress Note Subjective Additional Comments no acute events comfortable stable. Objective Last 24 Hour Vital Signs Date Time Temp Pulse Resp B/P (MAP) Pulse Ox O2 Delivery O2 Flow Rate FiO2 05/05/19 12:00 98.2 82 20 116/53 (74) 99 05/05/19 12:00 Nasal Cannula 2.0 05/05/19 08:50 119/52 05/05/19 08:50 89 05/05/19 08:50 89 119/52 05/05/19 08:00 Nasal Cannula 2.0 05/05/19 08:00 86 05/05/19 08:00 97.7 89 20 119/52 (74) 99 05/05/19 04:00 Nasal Cannula 2.0 05/05/19 04:00 98.0 80 20 108/56 (73) 100 05/05/19 03:28 80 05/05/19 00:19 107/54 05/05/19 00:00 99.4 85 24 107/54 (71) 100 05/05/19 00:00 Nasal Cannula 2.0 05/04/19 23:29 69 05/04/19 20:29 90 112/59 05/04/19 20:00 98.8 90 24 112/59 (76) 100 05/04/19 20:00 Nasal Cannula 2.0 05/04/19 19:55 86 05/04/19 16:00 Nasal Cannula 2.0 05/04/19 16:00 98.2 83 20 108/58 (75) 98 05/04/19 16:00 92 I&O Intake and Output 05/04/19 05/05/19 19:00 07:00 Intake Total 1230.133 ml 226.315 ml Output Total 900 ml 1500 ml Balance 330.133 ml -1273.685 ml Intake Oral 820 ml 100 ml IV Total 410.133 ml 126.315 ml Output Urine Total 900 ml 1500 ml # Bowel Movements 4 Dressing: dry Wound: clean Cardiovascular: RSR Respiratory: clear Abdomen: soft, present bowel sounds Extremities: no cyanosis Plan Problems: (1) Abdominal pain Assessment & Plan: 83 F with abdominal pain. no n/v. overall decompensated dehydrated will need IV fluids no IV access obtained at this time by multiple nurse attempts see note CT findings with Impression: Anasarca, with diffuse edema of the subcutaneous, mesenteric, abdominal fat, also demonstrated on the prior exam. There is also pleural and peritoneal fluid As mentioned above, bilateral pleural effusions. Increased on the right, similar to the prior exam on the left. Resultant basilar compressive atelectatic changes Cardiomegaly and pacemaker Questionable wall thickening of the distal descending colon. Possibly on the basis of generalized edema, colitis possible Bilateral renal cysts. bowel regimen trend labs appreciate GI input. diet as tolerated thank you will follow with recs (2) Lactic acid acidosis Assessment & Plan: resolved (3) SOB (shortness of breath) Remi Lindquist May 05, 2019 12:17
[2019-05-05 16:00] VITALS: BP 114/58
[2019-05-05] MEDS ORDERED: NS 275ml ONE (18:01)
[2019-05-05] MEDS ORDERED: Tubing IV Secondary IV ONE (18:01)
--- NOTE | 2019-05-05 18:19 | NUR ---
NURSE NOTES: Contacted and left message with Dr. Frankel and Dr. Mason, patient has been refusing her Lactulose 20 GM PO BID. Explained to patient risks and possible negative outcomes of not taking medication, patient is alert and oriented x 4, patient continued to refuse. Respected patient rights. Awaiting reply. Will continue to monitor patient.
--- NOTE | 2019-05-05 18:20 | NUR ---
NURSE NOTES: Contacted and informed Dr. Stephenson that patient has been refusing her Lactulose 20 GM PO BID. Explained to patient risks and possible negative outcomes of not taking medications, patient is alert and oriented x 4, patient continued to refuse. Respected patient rights. Dr. Stephenson acknowledged, no new orders given at this time. Will continue to monitor patient.
--- NOTE | 2019-05-05 19:15 | NUR ---
NURSE NOTES: Received report from Neo RN, pt. in bed awake, talking on phone, no signs or symptoms of acute cardiac or respiratory distress noted, bed in lowest position and call light within easy reach, bed alarm on, side rails up x's3 and safety brakes engaged, youth nutritional monitor on, pt. appears to be sating well on 2L NC no distress noted, pt. aware to ask for assist when using bed purdy, pt. appears to be clean and dry, BNEIGNO midline running Dobutamine drip at 18.9mls an hour- 5mcg/kg/min, safety measures continued, will continue with plan of care.
--- NOTE | 2019-05-05 19:24 | NUR ---
NURSE NOTES: Per Dr. Frankel discontinue Lactulose 20 GM PO BID. Order entered, noted, and carried out. Will continue to monitor patient.
--- NOTE | 2019-05-05 19:29 | NUR ---
HAND-OFF: Report given to JAN Pelletier..
--- NOTE | 2019-05-05 19:49 | General Progress Note ---
Assessment/Plan Status: stable, progressing Assessment/Plan: Assessment - abdominal pain, improved - urinary retention - Thickened colon on CT - Doubt significance - cirrhosis - refusing lactulose - CM/CHF/ICD - coagulopathy - Anasarca - Poor Px Recommendations - Xifaxan - lactulose if agrees - check AFP--> normal - check HBV, HCV --> negative - po diet as tolerated Subjective Allergies: Coded Allergies: CODEINE (Verified Allergy, Unknown, 06/17/18) Subjective Above noted tolerating PO refusing lactulose due to BM Objective Last 24 Hour Vital Signs Date Time Temp Pulse Resp B/P (MAP) Pulse Ox O2 Delivery O2 Flow Rate FiO2 05/05/19 16:00 Nasal Cannula 2.0 05/05/19 16:00 78 05/05/19 16:00 98.7 83 20 114/58 (76) 100 05/05/19 14:00 108/61 05/05/19 12:00 76 05/05/19 12:00 98.2 82 20 116/53 (74) 99 05/05/19 12:00 Nasal Cannula 2.0 05/05/19 08:50 119/52 05/05/19 08:50 89 05/05/19 08:50 89 119/52 05/05/19 08:00 Nasal Cannula 2.0 05/05/19 08:00 86 05/05/19 08:00 97.7 89 20 119/52 (74) 99 05/05/19 04:00 Nasal Cannula 2.0 05/05/19 04:00 98.0 80 20 108/56 (73) 100 05/05/19 03:28 80 05/05/19 00:19 107/54 05/05/19 00:00 99.4 85 24 107/54 (71) 100 05/05/19 00:00 Nasal Cannula 2.0 05/04/19 23:29 69 05/04/19 20:29 90 112/59 05/04/19 20:00 98.8 90 24 112/59 (76) 100 05/04/19 20:00 Nasal Cannula 2.0 05/04/19 19:55 86 Intake and Output 05/04/19 05/05/19 19:00 07:00 Intake Total 1230.133 ml 245.215 ml Output Total 900 ml 1500 ml Balance 330.133 ml -1254.785 ml Intake Oral 820 ml 100 ml IV Total 410.133 ml 145.215 ml Output Urine Total 900 ml 1500 ml # Bowel Movements 4 Height (Feet): 5 Height (Inches): 4.00 Weight (Pounds): 148 Objective Debilitated AA woman NCAT supple CTA RR abd soft, (+) edema ext (+) edema Mauro Stephenson MD May 05, 2019 19:49
[2019-05-05 20:00] VITALS: BP 116/66
[2019-05-05] MEDS: Dyna-Hex 2% Top Sol 2oz TOPIC SCH (20:05)
[2019-05-06] VITALS: BP 119/71
--- NOTE | 2019-05-06 00:15 | Progress Note ---
DATE: 05/05/2019 CARDIOLOGY PROGRESS NOTE SUBJECTIVE: The patient remains on dobutamine drip and IV diuretic therapy. Her blood pressure parameters have improved. Urine output is good. She has less shortness of breath. OBJECTIVE: VITAL SIGNS: Blood pressure 114/58, pulse 83, respirations 20, afebrile. NECK: Jugular venous pressure still elevated. EXTREMITIES: Trace dependent edema. HEART: Regular rhythm, rate. Normal S1. Paradoxically split S2. A 1/6 systolic apical murmur. ABDOMEN: Soft with no obvious ascites. IMPRESSION: Acute on chronic systolic congestive heart failure, improving with IV diuretics and inotropes. PLAN: 1. Advanced ARABELLA inhibitor. 2. Continue carvedilol. 3. Continue diuretics. 4. Maintain digoxin. 5. Additional 1 to 2 days of IV dobutamine until fully euvolemic. 6. Check natriuretic peptide assay and electrolytes. Miguel Mason M.D. DR: CHRISTIAN JOB#: [id number] CC:
[2019-05-06] MEDS: DOBUTamine 250mg/250ml Premix 250 ML IV SCH ×2 (01:49→18:02)
[2019-05-06 04:00] VITALS: BP 124/77
[2019-05-06 04:57] LABS: BASOPHILS % (AUTO) 1.6 % (0.0-2.0); EOSINOPHILS % (AUTO) 1.3 % (0.0-3.0); HEMATOCRIT 38.1 % (37.0-47.0); HEMOGLOBIN 11.8 G/DL (12.0-16.0); LYMPHOCYTES % (AUTO) 9.1 % (20.0-45.0); MEAN CORPUSCULAR VOLUME 103 FL (80-99); MONOCYTES % (AUTO) 9.5 % (1.0-10.0); NEUTROPHILS % (AUTO) 78.5 % (45.0-75.0); PLATELET COUNT 113 K/UL (150-450); RED BLOOD COUNT 3.69 M/UL (4.20-5.40); RED CELL DISTRIBUTION WIDTH 15.1 % (11.6-14.8); WHITE BLOOD COUNT 11.4 K/UL (4.8-10.8)
[2019-05-06 06:17] LABS: ALANINE AMINOTRANSFERASE 15 U/L (12-78); ALBUMIN 2.6 G/DL (3.4-5.0); ALBUMIN/GLOBULIN RATIO 0.6 (1.0-2.7); ALKALINE PHOSPHATASE 81 U/L (46-116); ANION GAP 5 mmol/L (5-15); ASPARTATE AMINO TRANSFERASE 23 U/L (15-37); BILIRUBIN,TOTAL 2.5 MG/DL (0.2-1.0); BLOOD UREA NITROGEN 12 mg/dL (7-18); CALCIUM 9.2 MG/DL (8.5-10.1); CARBON DIOXIDE 35 MMOL/L (21-32); CHLORIDE 97 MMOL/L (98-107); POTASSIUM 3.3 MMOL/L (3.5-5.1); SODIUM 137 MMOL/L (136-145)
[2019-05-06 06:21] LABS: BILIRUBIN,DIRECT 0.9 MG/DL (0.0-0.3)
--- NOTE | 2019-05-06 07:04 | NUR ---
NURSE NOTES: Dr. Frankel made aware of abnormal labs- will replace per doctor.
--- NOTE | 2019-05-06 07:20 | NUR ---
HAND-OFF: Report given to Milka MONTOYA, pt. remains stable and no signs of distress noted- aware to f/u with doctor on body rash.
--- NOTE | 2019-05-06 07:29 | NUR ---
NURSE NOTES: Report received from JAN Pelletier.Seen by Dr Frankel made aware body rashes.will continue monitor
--- NOTE | 2019-05-06 07:45 | General Progress Note ---
Assessment/Plan Problem List: (1) Cirrhosis ICD Codes: K74.60 - Unspecified cirrhosis of liver SNOMED: 99605980 (2) Metabolic acidosis ICD Codes: E87.2 - Acidosis SNOMED: 73812354 (3) CHF (congestive heart failure), NYHA class IV ICD Codes: I50.9 - Heart failure, unspecified SNOMED: 481681302, 574656781 (4) SVT (supraventricular tachycardia) ICD Codes: I47.1 - Supraventricular tachycardia SNOMED: 3090455 (5) Elevated troponin (6) Anemia ICD Codes: D64.9 - Anemia, unspecified SNOMED: 024133628 (7) SOB (shortness of breath) ICD Codes: R06.02 - Shortness of breath SNOMED: 697095037 (8) A-fib ICD Codes: I48.91 - Unspecified atrial fibrillation SNOMED: 64411152 (9) Gastric cancer ICD Codes: C16.9 - Malignant neoplasm of stomach, unspecified SNOMED: 097817802 (10) Paroxysmal a-fib ICD Codes: I48.0 - Paroxysmal a-fib SNOMED: 599359831 Status: stable, progressing Assessment/Plan: tele diuresis with lasix monitor lytes- replace as needed dobutamine per cards lactulose o2 resp rx pt/ot Subjective ROS Limited/Unobtainable: No Constitutional: Reports: fever, malaise HEENT: Reports: no symptoms Cardiovascular: Reports: no symptoms Respiratory: Reports: shortness of breath, SOB with excertion, SOB at rest Gastrointestinal/Abdominal: Reports: no symptoms Genitourinary: Reports: no symptoms Neurologic/Psychiatric: Reports: no symptoms Endocrine: Reports: no symptoms Hematologic/Lymphatic: Reports: no symptoms Allergies: Coded Allergies: CODEINE (Verified Allergy, Unknown, 06/17/18) All Systems: reviewed and negative except above Subjective no real complaints. feels better today. on iv dobutamine. good diuresis low k and mg noted. Objective Last 24 Hour Vital Signs Date Time Temp Pulse Resp B/P (MAP) Pulse Ox O2 Delivery O2 Flow Rate FiO2 05/06/19 04:00 Nasal Cannula 2.0 05/06/19 04:00 85 05/06/19 04:00 98.7 86 20 124/77 (93) 100 05/06/19 01:49 121/76 05/06/19 00:00 86 05/06/19 00:00 98.5 86 20 119/71 (87) 100 05/06/19 00:00 Nasal Cannula 2.0 05/05/19 20:06 88 116/66 05/05/19 20:00 Nasal Cannula 2.0 05/05/19 20:00 98.9 82 20 116/66 (83) 100 05/05/19 20:00 84 05/05/19 16:00 Nasal Cannula 2.0 05/05/19 16:00 78 05/05/19 16:00 98.7 83 20 114/58 (76) 100 05/05/19 14:00 108/61 05/05/19 12:00 76 05/05/19 12:00 98.2 82 20 116/53 (74) 99 05/05/19 12:00 Nasal Cannula 2.0 05/05/19 08:50 119/52 05/05/19 08:50 89 05/05/19 08:50 89 119/52 05/05/19 08:00 Nasal Cannula 2.0 05/05/19 08:00 86 05/05/19 08:00 97.7 89 20 119/52 (74) 99 Intake and Output 05/05/19 05/06/19 18:59 06:59 Intake Total 1174.566 ml 226.8 ml Output Total 1700 ml 1350 ml Balance -525.434 ml -1123.2 ml Intake Oral 600 ml IV Total 574.566 ml 226.8 ml Output Urine Total 1700 ml 1350 ml Laboratory Tests 05/06/19 03:45: White Blood Count 11.4H, Red Blood Count 3.69L, Hemoglobin 11.8L, Hematocrit 38.1, Mean Corpuscular Volume 103H, Mean Corpuscular Hemoglobin 32.0H, Mean Corpuscular Hemoglobin Concent 31.0L, Red Cell Distribution Width 15.1H, Platelet Count 113L, Mean Platelet Volume 9.6, Neutrophils (%) (Auto) 78.5H, Lymphocytes (%) (Auto) 9.1L, Monocytes (%) (Auto) 9.5, Eosinophils (%) (Auto) 1.3, Basophils (%) (Auto) 1.6, Sodium Level 137, Potassium Level 3.3L, Chloride Level 97L, Carbon Dioxide Level 35H, Anion Gap 5, Blood Urea Nitrogen 12, Creatinine 1.0, Estimat Glomerular Filtration Rate , Glucose Level 112H, Calcium Level 9.2, Magnesium Level 1.5L, Total Bilirubin 2.5H, Direct Bilirubin 0.9H, Aspartate Amino Transf (AST/SGOT) 23, Alanine Aminotransferase (ALT/SGPT) 15, Alkaline Phosphatase 81, Pro-B-Type Natriuretic Peptide 92106X, Total Protein 7.3, Albumin 2.6L, Globulin 4.7, Albumin/Globulin Ratio 0.6L Height (Feet): 5 Height (Inches): 4.00 Weight (Pounds): 129 Objective General Appearance: WD/WN, alert Neck: supple Cardiovascular: normal rate, regular rhythm Respiratory/Chest: chest wall non-tender, lungs clear, normal breath sounds, no respiratory distress Abdomen: normal bowel sounds, non tender, soft, no organomegaly Edema: no edema noted Arm (L), no edema noted Arm (R), no edema noted Leg (L), no edema noted Leg (R), no edema noted Pedal (L), no edema noted Pedal (R), no edema noted Generalized Neurologic: rn gastroenterology II-XII grossly normal, alert, oriented x 3, responsive Palomo Frankel MD May 06, 2019 07:45
[2019-05-06 08:00] VITALS: BP 109/72
--- NOTE | 2019-05-06 08:03 | NUR ---
NURSE NOTES: Patient asleep when received, easily arousal to verbal and tactile stimuli.On oxygen nasal cannula at 2LPM and saturate at 98% at this time.Afebrile and afib on the monitor.BENIGNO picc running Dobutamine drip at 5mcg/hr.Dressing clean dry,intact and date.Abdomen soft nad non distended.Bowel sounds present in all quadrants.Alarcon catheter in place draining well yellowish urine with no apparent sediment noted.HOB elevated to prevent aspiration , turned and repositioned for skin management, refused mouth care, will continue to monitor. Addendum: 05/06/19 at 1539 by Milka Yu RN REFUSED NYSTATIN CREAM STATED BY PT "ITS TOO STICKY" EXPLAIN RISKS AND BENEFIT STILL REFUSING AND STATED "LATER WE WILL SEE"
--- NOTE | 2019-05-06 08:17 | NUR ---
NURSE NOTES: SEEN BY DR WELCH WITH NEW ORDER FOR [address] HURST,WILL FOLLOW UP WITH NEW ORDER
[2019-05-06] MEDS: Sucralfate 1gm tab ORAL SCH (08:35)
[2019-05-06] MEDS: Digoxin 0.125mg tab ORAL SCH (08:38)
[2019-05-06] MEDS: Spironolactone 25mg tab ORAL SCH (08:38)
[2019-05-06] MEDS: Lisinopril 20mg tab ORAL SCH (08:38)
[2019-05-06] MEDS: Heparin 5000 units/ml inj SUBQ SCH ×2 (08:42→20:52)
[2019-05-06] MEDS: Carvedilol 6.25mg Tab ORAL SCH ×2 (08:43→20:51)
--- NOTE | 2019-05-06 10:11 | NUR ---
NURSE NOTES: Turned and repositioned for skin management, will continue to monitor.HOb elevated to prevent aspiration
[2019-05-06 12:00] VITALS: BP 112/56
--- NOTE | 2019-05-06 12:08 | NUR ---
NURSE NOTES: Turned and repositioned, HOB elevated at 35 degree, no acute distress, awake and watching tv, will continue to monitor
--- NOTE | 2019-05-06 12:09 | Surgery Progress Note ---
Surgery Progress Note Subjective Symptoms: improved, pain absent, tolerating diet, voiding well, passing flatus Objective Last 24 Hour Vital Signs Date Time Temp Pulse Resp B/P (MAP) Pulse Ox O2 Delivery O2 Flow Rate FiO2 05/06/19 12:00 Nasal Cannula 2.0 05/06/19 08:43 88 109/88 05/06/19 08:38 109/67 05/06/19 08:38 88 05/06/19 08:00 Nasal Cannula 2.0 05/06/19 08:00 98.7 88 20 109/72 (84) 100 05/06/19 07:53 96 05/06/19 04:00 Nasal Cannula 2.0 05/06/19 04:00 85 05/06/19 04:00 98.7 86 20 124/77 (93) 100 05/06/19 01:49 121/76 05/06/19 00:00 86 05/06/19 00:00 98.5 86 20 119/71 (87) 100 05/06/19 00:00 Nasal Cannula 2.0 05/05/19 20:06 88 116/66 05/05/19 20:00 Nasal Cannula 2.0 05/05/19 20:00 98.9 82 20 116/66 (83) 100 05/05/19 20:00 84 05/05/19 16:00 Nasal Cannula 2.0 05/05/19 16:00 78 05/05/19 16:00 98.7 83 20 114/58 (76) 100 05/05/19 14:00 108/61 I&O Intake and Output 05/05/19 05/06/19 19:00 07:00 Intake Total 1174.566 ml 226.8 ml Output Total 1700 ml 1350 ml Balance -525.434 ml -1123.2 ml Intake Oral 600 ml IV Total 574.566 ml 226.8 ml Output Urine Total 1700 ml 1350 ml Dressing: dry Wound: clean Cardiovascular: RSR Respiratory: clear Abdomen: soft, present bowel sounds, non-distended Extremities: no edema, no tenderness, no cyanosis, other Laboratory Tests Test 05/06/19 03:45 White Blood Count 11.4 K/UL (4.8-10.8) H Red Blood Count 3.69 M/UL (4.20-5.40) L Hemoglobin 11.8 G/DL (12.0-16.0) L Hematocrit 38.1 % (37.0-47.0) Mean Corpuscular Volume 103 FL (80-99) H Mean Corpuscular Hemoglobin 32.0 PG (27.0-31.0) H Mean Corpuscular Hemoglobin Concent 31.0 G/DL (32.0-36.0) L Red Cell Distribution Width 15.1 % (11.6-14.8) H Platelet Count 113 K/UL (150-450) L Mean Platelet Volume 9.6 FL (6.5-10.1) Neutrophils (%) (Auto) 78.5 % (45.0-75.0) H Lymphocytes (%) (Auto) 9.1 % (20.0-45.0) L Monocytes (%) (Auto) 9.5 % (1.0-10.0) Eosinophils (%) (Auto) 1.3 % (0.0-3.0) Basophils (%) (Auto) 1.6 % (0.0-2.0) Sodium Level 137 MMOL/L (136-145) Potassium Level 3.3 MMOL/L (3.5-5.1) L Chloride Level 97 MMOL/L (98-107) L Carbon Dioxide Level 35 MMOL/L (21-32) H Anion Gap 5 mmol/L (5-15) Blood Urea Nitrogen 12 mg/dL (7-18) Creatinine 1.0 MG/DL (0.55-1.30) Estimat Glomerular Filtration Rate mL/min (>60) Glucose Level 112 MG/DL (74-106) H Calcium Level 9.2 MG/DL (8.5-10.1) Magnesium Level 1.5 MG/DL (1.8-2.4) L Total Bilirubin 2.5 MG/DL (0.2-1.0) H Direct Bilirubin 0.9 MG/DL (0.0-0.3) H Aspartate Amino Transf (AST/SGOT) 23 U/L (15-37) Alanine Aminotransferase (ALT/SGPT) 15 U/L (12-78) Alkaline Phosphatase 81 U/L (46-116) Pro-B-Type Natriuretic Peptide 81732 pg/mL (0-125) H Total Protein 7.3 G/DL (6.4-8.2) Albumin 2.6 G/DL (3.4-5.0) L Globulin 4.7 g/dL Albumin/Globulin Ratio 0.6 (1.0-2.7) L Plan Problems: (1) Abdominal pain Assessment & Plan: 83 F with abdominal pain. no n/v. overall decompensated dehydrated will need IV fluids no IV access obtained at this time by multiple nurse attempts see note central line out. site clean PICC line in and clean / functional CT findings with Impression: Anasarca, with diffuse edema of the subcutaneous, mesenteric, abdominal fat, also demonstrated on the prior exam. There is also pleural and peritoneal fluid As mentioned above, bilateral pleural effusions. Increased on the right, similar to the prior exam on the left. Resultant basilar compressive atelectatic changes Cardiomegaly and pacemaker Questionable wall thickening of the distal descending colon. Possibly on the basis of generalized edema, colitis possible Bilateral renal cysts. pain resolving no acute surgical intervention planned bowel regimen trend labs appreciate GI input. diet as tolerated thank you will follow with recs (2) Lactic acid acidosis Assessment & Plan: resolved (3) SOB (shortness of breath) Remi Lindquist May 06, 2019 12:09
--- NOTE | 2019-05-06 14:30 | NUR ---
NURSE NOTES: Patient had a large episode of bowel, good chika-care done, turned and repositioned for skin management.Kept clean dry and comfortable.
[2019-05-06 16:00] VITALS: BP 133/64
--- NOTE | 2019-05-06 16:08 | NUR ---
NURSE NOTES: [facility] care done,turned and repositioned.Kept clean and dry.Will continue to monitor
--- NOTE | 2019-05-06 16:39 | NUR ---
CASE MANAGEMENT:REVIEW 05/06/19 SI: SEVERE CHF. 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
[2019-05-06] MEDS ORDERED: Vancomycin 1gm/D5W 275ml IVPB SCH ×2 (18:00)
--- NOTE | 2019-05-06 18:10 | NUR ---
NURSE NOTES: Patient turned and repositioned, mouth care done, kept clean and dry.Call light within easy reach, will continue to monitor
--- NOTE | 2019-05-06 19:19 | NUR ---
HAND-OFF: Report given to JAN Stahl.
--- NOTE | 2019-05-06 19:24 | NUR ---
NURSE NOTES: Report received from JAN Jarquin. Observed pt watching television, denies any pain at this time. A/O x4. 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 NC 2 L noted with no signs of SOB. F/C intact and draining well. Midline on BENIGNO, intact and patent. Side rails up x3. Bed in the lowest position. Call light within reach. Will continue to monitor.
[2019-05-06 20:00] VITALS: BP 105/60
--- NOTE | 2019-05-06 20:20 | General Progress Note ---
Assessment/Plan Status: stable, progressing Assessment/Plan: Assessment - abdominal pain, improved - Thickened colon on CT - Doubt significance - cirrhosis - refusing lactulose - CM/CHF/ICD - coagulopathy - Anasarca - Poor Px Recommendations - Xifaxan - lactulose if agrees - check AFP--> normal - check HBV, HCV --> negative - po diet as tolerated Subjective Allergies: Coded Allergies: CODEINE (Verified Allergy, Unknown, 06/17/18) Subjective Above noted tolerating PO refusing lactulose due to BM Objective Last 24 Hour Vital Signs Date Time Temp Pulse Resp B/P (MAP) Pulse Ox O2 Delivery O2 Flow Rate FiO2 05/06/19 20:00 98.2 84 20 105/60 (75) 99 05/06/19 20:00 80 05/06/19 20:00 Nasal Cannula 2.0 05/06/19 18:02 133/64 05/06/19 16:00 73 05/06/19 16:00 Nasal Cannula 2.0 05/06/19 16:00 98.2 90 18 133/64 (87) 98 05/06/19 12:00 98.0 89 20 112/56 (74) 100 05/06/19 12:00 Nasal Cannula 2.0 05/06/19 12:00 74 05/06/19 08:43 88 109/88 05/06/19 08:38 109/67 05/06/19 08:38 88 05/06/19 08:00 Nasal Cannula 2.0 05/06/19 08:00 98.7 88 20 109/72 (84) 100 05/06/19 07:53 96 05/06/19 04:00 Nasal Cannula 2.0 05/06/19 04:00 85 05/06/19 04:00 98.7 86 20 124/77 (93) 100 05/06/19 01:49 121/76 05/06/19 00:00 86 05/06/19 00:00 98.5 86 20 119/71 (87) 100 05/06/19 00:00 Nasal Cannula 2.0 Intake and Output 05/05/19 05/06/19 19:00 07:00 Intake Total 1174.566 ml 226.8 ml Output Total 1700 ml 1350 ml Balance -525.434 ml -1123.2 ml Intake Oral 600 ml IV Total 574.566 ml 226.8 ml Output Urine Total 1700 ml 1350 ml Laboratory Tests 05/06/19 03:45: White Blood Count 11.4H, Red Blood Count 3.69L, Hemoglobin 11.8L, Hematocrit 38.1, Mean Corpuscular Volume 103H, Mean Corpuscular Hemoglobin 32.0H, Mean Corpuscular Hemoglobin Concent 31.0L, Red Cell Distribution Width 15.1H, Platelet Count 113L, Mean Platelet Volume 9.6, Neutrophils (%) (Auto) 78.5H, Lymphocytes (%) (Auto) 9.1L, Monocytes (%) (Auto) 9.5, Eosinophils (%) (Auto) 1.3, Basophils (%) (Auto) 1.6, Sodium Level 137, Potassium Level 3.3L, Chloride Level 97L, Carbon Dioxide Level 35H, Anion Gap 5, Blood Urea Nitrogen 12, Creatinine 1.0, Estimat Glomerular Filtration Rate , Glucose Level 112H, Calcium Level 9.2, Magnesium Level 1.5L, Total Bilirubin 2.5H, Direct Bilirubin 0.9H, Aspartate Amino Transf (AST/SGOT) 23, Alanine Aminotransferase (ALT/SGPT) 15, Alkaline Phosphatase 81, Pro-B-Type Natriuretic Peptide 56693K, Total Protein 7.3, Albumin 2.6L, Globulin 4.7, Albumin/Globulin Ratio 0.6L 05/06/19 14:15: Vancomycin Level Trough 21.1H Height (Feet): 5 Height (Inches): 4.00 Weight (Pounds): 129 Objective Debilitated AA woman NCAT supple CTA RR abd soft, (+) edema ext (+) edema Mauro Stephenson MD May 06, 2019 20:20
[2019-05-06] MEDS: Dyna-Hex 2% Top Sol 2oz TOPIC SCH (20:52)
--- NOTE | 2019-05-06 22:30 | Progress Note ---
DATE: 05/06/2019 CARDIOLOGY PROGRESS NOTE SUBJECTIVE: The patient has less shortness of breath. She is responding well to dobutamine and diuretic therapy. Urine output is excellent. Renal function has improved. OBJECTIVE: VITAL SIGNS: Blood pressure 105/60 to 133/64, heart rate 78 to 90, respiratory 18 to 20, and afebrile. NECK: Jugular venous pressure is still elevated. LUNGS: Few rales. CARDIAC: Irregularly irregular rhythm. Normal S1 and S2 with a 1/6 systolic apical murmur. ABDOMEN: Soft. EXTREMITIES: Trace dependent edema. LABORATORY DATA: Potassium 3.3, BUN 12, creatinine 1, and magnesium 1.5. Pro-natriuretic peptide 13,000. IMPRESSION: 1. Improving cardiogenic shock. 2. Acute on chronic systolic congestive heart failure. 3. Moderate to severe protein-calorie malnutrition. 4. Hypokalemia. 5. Hypomagnesemia. PLAN: 1. Check chest x-ray. 2. Transition to oral therapy over the next 24 hours. 3. Replace potassium and magnesium. 4. Mobilize once off dobutamine drip. Miguel Mason M.D. DR: KAILASH JOB#: [id number] CC:
[2019-05-07] VITALS: BP 111/50
--- NOTE | 2019-05-07 00:45 | NUR ---
NURSE NOTES: Observed pt sleeping in the bed. No acute distress noted at this time. A fib on card setter with HR of 85 noted. BP 111/50 noted. Will continue to monitor.
[2019-05-07 04:00] VITALS: BP 115/57
[2019-05-07] MEDS: DOBUTamine 250mg/250ml Premix 250 ML IV SCH ×2 (05:04→17:40)
[2019-05-07 05:51] LABS: ANION GAP 0 mmol/L (5-15); BLOOD UREA NITROGEN 11 mg/dL (7-18); CARBON DIOXIDE 38 MMOL/L (21-32); CHLORIDE 102 MMOL/L (98-107); POTASSIUM 3.3 MMOL/L (3.5-5.1); SODIUM 140 MMOL/L (136-145)
--- NOTE | 2019-05-07 07:35 | NUR ---
HAND-OFF: Report given to JAN Wasserman. No distress noted at this time.
--- NOTE | 2019-05-07 07:39 | NUR ---
NURSE NOTES: received patient report from jacek rosales. patient is on bed asleep. not in acute distress. patient is afib. aymptomatic. bed is low and locked for safety. will follow plan of care.
[2019-05-07 08:00] VITALS: BP 120/67
[2019-05-07] MEDS: Sucralfate 1gm tab ORAL SCH (08:05)
[2019-05-07] MEDS: Digoxin 0.125mg tab ORAL SCH (08:05)
[2019-05-07] MEDS: Spironolactone 25mg tab ORAL SCH (08:05)
[2019-05-07] MEDS: Carvedilol 6.25mg Tab ORAL SCH ×2 (08:06→20:13)
[2019-05-07] MEDS: Lisinopril 20mg tab ORAL SCH (08:07)
[2019-05-07] MEDS: Heparin 5000 units/ml inj SUBQ SCH ×2 (08:08→20:14)
--- NOTE | 2019-05-07 08:59 | Diagnostic Imaging Report ---
EXAM: XR Chest, 1 View CLINICAL HISTORY: ABN CHST TECHNIQUE: Frontal view of the chest. COMPARISON: Chest x-rays dated 04/29/19 FINDINGS: Lungs: Hazy density overlying the lower lung zones. Pleural space: Unremarkable. The costophrenic angles are mildly blunted. No visible pneumothorax. Heart: Cardiomegaly. Mediastinum: Unremarkable. Bones/joints: Unremarkable. Vasculature: Atherosclerotic calcifications are noted within the aortic arch. Tubes, lines and devices: Unchanged positioning of a cardiac pacer/ICD in the left chest wall with the lead tips in the right atrium and right ventricle regions. Telemetry leads overlie the thorax. Radiodense catheter versus tube is seen in the right upper arm and axilla. IMPRESSION: 1. Cardiomegaly. 2. Hazy density overlying the lower lung zones, which may represent small layering effusions. Cannot exclude an underlying pneumonia or atelectasis in bilateral lung bases.
--- NOTE | 2019-05-07 10:53 | NUR ---
NURSE NOTES: reported to dr butt that patients k level today 3.3 and mag 1.6. awaits callback and new order.
[2019-05-07 12:00] VITALS: BP 126/63
--- NOTE | 2019-05-07 15:47 | General Progress Note ---
Assessment/Plan Status: stable, progressing Assessment/Plan: Assessment - abdominal pain, improved - Thickened colon on CT - Doubt significance - cirrhosis - refusing lactulose - CM/CHF/ICD - coagulopathy - Anasarca - Poor Px Recommendations - Xifaxan - lactulose if agrees - check AFP--> normal - check HBV, HCV --> negative - po diet as tolerated - cardiology f/u Subjective Allergies: Coded Allergies: CODEINE (Verified Allergy, Unknown, 06/17/18) Subjective Above noted tolerating PO refusing lactulose due to BM Objective Last 24 Hour Vital Signs Date Time Temp Pulse Resp B/P (MAP) Pulse Ox O2 Delivery O2 Flow Rate FiO2 05/07/19 12:00 97.9 75 20 126/63 (84) 99 05/07/19 12:00 Nasal Cannula 2.0 05/07/19 11:45 81 05/07/19 09:00 Nasal Cannula 2.0 05/07/19 08:07 120/67 05/07/19 08:06 81 120/67 05/07/19 08:05 81 05/07/19 08:00 97.7 81 22 120/67 (84) 93 05/07/19 07:46 81 05/07/19 05:04 115/57 05/07/19 04:00 Nasal Cannula 2.0 05/07/19 04:00 98.9 80 20 115/57 (76) 99 05/07/19 04:00 88 05/07/19 00:00 Nasal Cannula 2.0 05/07/19 00:00 98.2 85 20 111/50 (70) 99 05/07/19 00:00 74 05/06/19 20:51 78 100/62 05/06/19 20:00 98.2 84 20 105/60 (75) 99 05/06/19 20:00 80 05/06/19 20:00 Nasal Cannula 2.0 05/06/19 18:02 133/64 05/06/19 16:00 73 05/06/19 16:00 Nasal Cannula 2.0 05/06/19 16:00 98.2 90 18 133/64 (87) 98 Intake and Output 05/06/19 05/07/19 19:00 07:00 Intake Total 925.9 ml 466.8 ml Output Total 1900 ml 2400 ml Balance -974.1 ml -1933.2 ml Intake Oral 418 ml 240 ml IV Total 507.9 ml 226.8 ml Output Urine Total 1900 ml 2400 ml # Bowel Movements 1 2 Laboratory Tests 05/07/19 05:00: Sodium Level 140, Potassium Level 3.3L, Chloride Level 102, Carbon Dioxide Level 38H, Anion Gap 0L, Blood Urea Nitrogen 11, Creatinine 1.0, Estimat Glomerular Filtration Rate , Glucose Level 95, Calcium Level 8.0L, Magnesium Level 1.6L Height (Feet): 5 Height (Inches): 4.00 Weight (Pounds): 128 Objective Debilitated AA woman NCAT supple CTA RR abd soft, (+) edema ext (+) edema Mauro Stephenson MD May 07, 2019 15:47
[2019-05-07] MEDS ORDERED: NS 275ml ONE (15:49)
[2019-05-07] MEDS ORDERED: Tubing IV Secondary IV ONE (15:49)
[2019-05-07 16:00] VITALS: BP 104/67
--- NOTE | 2019-05-07 19:05 | NUR ---
NURSE NOTES: Pt report received from Lisy MONTOYA NEHA. pt appears to be resting stable in bed. pt is alert and oriented times 4, and is able to follow commands. pts pupils are round and reactive to light and accommodating bilaterally. pt has a business performance analyst showing regular sinus rhythm, no signs symptoms of acute cardiac distress noted. pt is on 2L NC able to sat at 99%, no acute signs symptoms of distress noted resp bowman. all safety precautions are active; bed locked and low, bed armed, side rails up times 3. will follow plan of care.
--- NOTE | 2019-05-07 19:24 | NUR ---
NURSE NOTES: report given to hazel rosales
--- NOTE | 2019-05-07 19:30 | Progress Note ---
DATE: 05/07/2019 CARDIOLOGY PROGRESS NOTE SUBJECTIVE: The patient has weakness. No nausea or vomiting. She has been responding quite well with IV dobutamine and diuretics. OBJECTIVE: VITAL SIGNS: Blood pressure 126/63, pulse 79, and respirations 19. LUNGS: Clear. CARDIAC: Irregularly irregular. Normal S1, paradoxically split S2. ABDOMEN: Soft. EXTREMITIES: No edema. LABORATORY DATA: Sodium 140, potassium 3.3, bicarb 38, BUN 11, creatinine 1, and magnesium 1.6. IMPRESSION: 1. Cardiogenic shock, recovered. 2. Acute on chronic systolic congestive heart failure, resolving. 3. Severe nonischemic cardiomyopathy. 4. Cardiac defibrillator. 5. Hypomagnesemia. 6. Hypokalemia. 7. Contraction alkalosis. PLAN: 1. Discontinue dobutamine. 2. Decrease diuretics to maintenance dosing. 3. Replace potassium and magnesium. 4. Mobilize. 5. Discharge planning. 6. Reassess GI regimen with Dr. Stephenson. Miguel Mason M.D. DR: HINA JOB#: [id number] CC:
[2019-05-07 20:00] VITALS: BP 108/68
--- NOTE | 2019-05-07 20:06 | General Progress Note ---
Assessment/Plan Problem List: (1) Cirrhosis ICD Codes: K74.60 - Unspecified cirrhosis of liver SNOMED: 75916414 (2) Metabolic acidosis ICD Codes: E87.2 - Acidosis SNOMED: 75991498 (3) CHF (congestive heart failure), NYHA class IV ICD Codes: I50.9 - Heart failure, unspecified SNOMED: 483563322, 290598545 (4) SVT (supraventricular tachycardia) ICD Codes: I47.1 - Supraventricular tachycardia SNOMED: 9397911 (5) Elevated troponin (6) Anemia ICD Codes: D64.9 - Anemia, unspecified SNOMED: 830368918 (7) SOB (shortness of breath) ICD Codes: R06.02 - Shortness of breath SNOMED: 187527523 (8) A-fib ICD Codes: I48.91 - Unspecified atrial fibrillation SNOMED: 53651154 (9) Gastric cancer ICD Codes: C16.9 - Malignant neoplasm of stomach, unspecified SNOMED: 068490318 (10) Paroxysmal a-fib ICD Codes: I48.0 - Paroxysmal a-fib SNOMED: 509921979 Status: stable, progressing Assessment/Plan: tele diuresis with lasix monitor lytes- replace as needed dobutamine per cards lactulose o2 resp rx pt/ot Subjective ROS Limited/Unobtainable: No Constitutional: Reports: malaise, weakness HEENT: Reports: no symptoms Cardiovascular: Reports: no symptoms Respiratory: Reports: shortness of breath, SOB with excertion Gastrointestinal/Abdominal: Reports: no symptoms Genitourinary: Reports: no symptoms Neurologic/Psychiatric: Reports: no symptoms Endocrine: Reports: no symptoms Hematologic/Lymphatic: Reports: no symptoms Allergies: Coded Allergies: CODEINE (Verified Allergy, Unknown, 06/17/18) All Systems: reviewed and negative except above Subjective no events. feeling better. decreased sob. low k and mg noted. Objective Last 24 Hour Vital Signs Date Time Temp Pulse Resp B/P (MAP) Pulse Ox O2 Delivery O2 Flow Rate FiO2 05/07/19 17:40 104/67 05/07/19 16:00 81 05/07/19 16:00 Nasal Cannula 2.0 05/07/19 16:00 99.1 79 19 104/67 (79) 99 05/07/19 12:00 97.9 75 20 126/63 (84) 99 7/27/19 12:00 Nasal Cannula 2.0 05/07/19 11:45 81 05/07/19 09:00 Nasal Cannula 2.0 05/07/19 08:07 120/67 05/07/19 08:06 81 120/67 05/07/19 08:05 81 05/07/19 08:00 97.7 81 22 120/67 (84) 93 05/07/19 07:46 81 05/07/19 05:04 115/57 05/07/19 04:00 Nasal Cannula 2.0 05/07/19 04:00 98.9 80 20 115/57 (76) 99 05/07/19 04:00 88 05/07/19 00:00 Nasal Cannula 2.0 05/07/19 00:00 98.2 85 20 111/50 (70) 99 05/07/19 00:00 74 05/06/19 20:51 78 100/62 Intake and Output 05/06/19 05/07/19 19:00 07:00 Intake Total 925.9 ml 466.8 ml Output Total 1900 ml 2400 ml Balance -974.1 ml -1933.2 ml Intake Oral 418 ml 240 ml IV Total 507.9 ml 226.8 ml Output Urine Total 1900 ml 2400 ml # Bowel Movements 1 2 Laboratory Tests 05/07/19 05:00: Sodium Level 140, Potassium Level 3.3L, Chloride Level 102, Carbon Dioxide Level 38H, Anion Gap 0L, Blood Urea Nitrogen 11, Creatinine 1.0, Estimat Glomerular Filtration Rate , Glucose Level 95, Calcium Level 8.0L, Magnesium Level 1.6L Height (Feet): 5 Height (Inches): 4.00 Weight (Pounds): 128 Objective General Appearance: WD/WN, alert Neck: supple Cardiovascular: normal rate, regular rhythm Respiratory/Chest: chest wall non-tender, lungs clear, normal breath sounds, no respiratory distress Abdomen: normal bowel sounds, non tender, soft, no organomegaly Edema: no edema noted Arm (L), no edema noted Arm (R), no edema noted Leg (L), no edema noted Leg (R), no edema noted Pedal (L), no edema noted Pedal (R), no edema noted Generalized Neurologic: nanoscience technician II-XII grossly normal, alert, oriented x 3, responsive Palomo rFankel MD May 07, 2019 20:06
[2019-05-07] MEDS: Dyna-Hex 2% Top Sol 2oz TOPIC SCH (20:13)
--- NOTE | 2019-05-07 21:29 | NUR ---
HAND-OFF: Report given to LISA HENDERSON RN. pt is stable as of now.
--- NOTE | 2019-05-07 21:30 | NUR ---
NURSE NOTES: Received pt from SDU. Pt is awake and verbally responsive. In no acute distress. VS stable. Oriented pt to new room and unit. Bed in lowest position, call light within reach. Will continue plan of care.
--- NOTE | 2019-05-07 22:05 | Surgery Progress Note ---
Surgery Progress Note Subjective Additional Comments no acute events downgraded comfortable labs improved no complaints. exam stable Objective Last 24 Hour Vital Signs Date Time Temp Pulse Resp B/P (MAP) Pulse Ox O2 Delivery O2 Flow Rate FiO2 05/07/19 21:46 97 Nasal Cannula 2.0 28 05/07/19 20:13 88 108/60 05/07/19 20:00 83 05/07/19 20:00 Nasal Cannula 2.0 05/07/19 20:00 99.0 88 19 108/68 (81) 100 05/07/19 17:40 104/67 05/07/19 16:00 81 05/07/19 16:00 Nasal Cannula 2.0 05/07/19 16:00 99.1 79 19 104/67 (79) 99 05/07/19 12:00 97.9 75 20 126/63 (84) 99 05/07/19 12:00 Nasal Cannula 2.0 05/07/19 11:45 81 05/07/19 09:00 Nasal Cannula 2.0 05/07/19 08:07 120/67 05/07/19 08:06 81 120/67 05/07/19 08:05 81 05/07/19 08:00 97.7 81 22 120/67 (84) 93 05/07/19 07:46 81 05/07/19 05:04 115/57 05/07/19 04:00 Nasal Cannula 2.0 05/07/19 04:00 98.9 80 20 115/57 (76) 99 05/07/19 04:00 88 05/07/19 00:00 Nasal Cannula 2.0 05/07/19 00:00 98.2 85 20 111/50 (70) 99 05/07/19 00:00 74 I&O Intake and Output 05/06/19 05/07/19 19:00 07:00 Intake Total 925.9 ml 466.8 ml Output Total 1900 ml 2400 ml Balance -974.1 ml -1933.2 ml Intake Oral 418 ml 240 ml IV Total 507.9 ml 226.8 ml Output Urine Total 1900 ml 2400 ml # Bowel Movements 1 2 Dressing: dry Wound: clean Cardiovascular: RSR Respiratory: clear Abdomen: soft, flat, present bowel sounds, non-distended Extremities: no tenderness, no cyanosis Laboratory Tests Test 05/07/19 05:00 Sodium Level 140 MMOL/L (136-145) Potassium Level 3.3 MMOL/L (3.5-5.1) L Chloride Level 102 MMOL/L (98-107) Carbon Dioxide Level 38 MMOL/L (21-32) H Anion Gap 0 mmol/L (5-15) L Blood Urea Nitrogen 11 mg/dL (7-18) Creatinine 1.0 MG/DL (0.55-1.30) Estimat Glomerular Filtration Rate mL/min (>60) Glucose Level 95 MG/DL (74-106) Calcium Level 8.0 MG/DL (8.5-10.1) L Magnesium Level 1.6 MG/DL (1.8-2.4) L Plan Problems: (1) Abdominal pain Assessment & Plan: 83 F with abdominal pain. no n/v. overall decompensated dehydrated will need IV fluids no IV access obtained at this time by multiple nurse attempts see note central line out. site clean PICC line in and clean / functional CT findings with Impression: Anasarca, with diffuse edema of the subcutaneous, mesenteric, abdominal fat, also demonstrated on the prior exam. There is also pleural and peritoneal fluid As mentioned above, bilateral pleural effusions. Increased on the right, similar to the prior exam on the left. Resultant basilar compressive atelectatic changes Cardiomegaly and pacemaker Questionable wall thickening of the distal descending colon. Possibly on the basis of generalized edema, colitis possible Bilateral renal cysts. pain resolving no acute surgical intervention planned bowel regimen trend labs appreciate GI input. diet as tolerated thank you will follow with recs (2) Lactic acid acidosis Assessment & Plan: resolved (3) SOB (shortness of breath) Remi Lindquist May 07, 2019 22:05
[2019-05-08] VITALS: BP 112/68
[2019-05-08 04:00] VITALS: BP 116/63
--- NOTE | 2019-05-08 07:29 | NUR ---
HAND-OFF: Report given to JAN Antonio.
--- NOTE | 2019-05-08 07:39 | NUR ---
NURSE NOTES: received patient from Moris Kelley. patient awake and alert, eating breakfast. no C/o pain or discomfort at this time. All safety precautions in place. call hathaway within reach. will monitor.
[2019-05-08 08:55] VITALS: BP 107/49
[2019-05-08] MEDS ORDERED: Losartan 50mg tab ORAL SCH (09:00)
[2019-05-08] MEDS ORDERED: Lisinopril 20mg tab ORAL SCH (09:00)
[2019-05-08] MEDS: Heparin 5000 units/ml inj SUBQ SCH ×2 (09:00→21:00)
[2019-05-08] MEDS: Losartan 50mg tab ORAL SCH (09:07)
[2019-05-08] MEDS: Spironolactone 25mg tab ORAL SCH (09:08)
[2019-05-08] MEDS: Carvedilol 6.25mg Tab ORAL SCH ×2 (09:08→20:54)
[2019-05-08] MEDS: Sucralfate 1gm tab ORAL SCH (09:08)
[2019-05-08] MEDS: Digoxin 0.125mg tab ORAL SCH (09:09)
--- NOTE | 2019-05-08 10:00 | NUR ---
NURSE NOTES: Patients potassium level was 3.3 yesterday patient on 40 mg of lasix IV. patient also on heparin SQ yesterday PLT was 113. Dr. Frankel made aware, awating orders. will follow
--- NOTE | 2019-05-08 11:14 | NUR ---
PT Note PT maryann completed, tx initiated. Patient has muscle weakness and decreased postural stability, requiring extensive assist in mobility and gait. Patient needs PT to increase her muscle strength and balance to improve her functional mobility and gait. Addendum: 05/08/19 at 1114 by CHRISTINE MORRIS PT Amended: Links added.
[2019-05-08 12:00] VITALS: BP 105/56
--- NOTE | 2019-05-08 12:48 | Surgery Progress Note ---
Surgery Progress Note Subjective Additional Comments Patient seen and examined at bedside. No acute events. States she is feeling well. No nausea vomiting fever or chills. Leukocytosis trending down. Labs otherwise improved. PICC line site clean dry intact Objective Last 24 Hour Vital Signs Date Time Temp Pulse Resp B/P (MAP) Pulse Ox O2 Delivery O2 Flow Rate FiO2 05/08/19 12:00 70 05/08/19 12:00 98.7 78 20 105/56 (72) 100 05/08/19 09:09 89 05/08/19 09:08 107/49 05/08/19 09:08 89 107/49 05/08/19 09:07 107/49 05/08/19 09:00 Nasal Cannula 2.0 05/08/19 08:55 98.8 89 23 107/49 (68) 99 05/08/19 08:00 101 05/08/19 04:00 70 05/08/19 04:00 98.1 70 16 116/63 (80) 99 05/08/19 00:00 98.2 83 16 112/68 (83) 99 05/08/19 00:00 83 05/07/19 21:46 97 Nasal Cannula 2.0 28 05/07/19 20:13 88 108/60 05/07/19 20:00 83 05/07/19 20:00 Nasal Cannula 2.0 05/07/19 20:00 99.0 88 19 108/68 (81) 100 05/07/19 17:40 104/67 05/07/19 16:00 81 05/07/19 16:00 Nasal Cannula 2.0 05/07/19 16:00 99.1 79 19 104/67 (79) 99 I&O Intake and Output 05/07/19 05/08/19 18:59 06:59 Intake Total 876.8 ml Output Total 1300 ml 300 ml Balance -423.2 ml -300 ml Intake Oral 550 ml IV Total 326.8 ml Output Urine Total 1300 ml 300 ml # Bowel Movements 1 1 Dressing: dry Wound: clean Cardiovascular: RSR Respiratory: clear Abdomen: soft, non-tender, present bowel sounds Extremities: no tenderness, no cyanosis Plan Problems: (1) Abdominal pain Assessment & Plan: 83 F with abdominal pain. no n/v. overall decompensated dehydrated will need IV fluids no IV access obtained at this time by multiple nurse attempts see note central line out. site clean PICC line in and clean / functional CT findings with Impression: Anasarca, with diffuse edema of the subcutaneous, mesenteric, abdominal fat, also demonstrated on the prior exam. There is also pleural and peritoneal fluid As mentioned above, bilateral pleural effusions. Increased on the right, similar to the prior exam on the left. Resultant basilar compressive atelectatic changes Cardiomegaly and pacemaker Questionable wall thickening of the distal descending colon. Possibly on the basis of generalized edema, colitis possible Bilateral renal cysts. pain resolving no acute surgical intervention planned bowel regimen trend labs appreciate GI input. diet as tolerated thank you will follow with recs (2) Lactic acid acidosis Assessment & Plan: resolved (3) SOB (shortness of breath) Remi Lindquist May 08, 2019 12:48
--- NOTE | 2019-05-08 14:45 | General Progress Note ---
Assessment/Plan Status: stable, progressing Assessment/Plan: Assessment - abdominal pain, improved - Thickened colon on CT - Doubt significance - cirrhosis - refusing lactulose - CM/CHF/ICD - coagulopathy - Anasarca - Poor Px Recommendations - Xifaxan - lactulose if agrees - check AFP--> normal - check HBV, HCV --> negative - po diet as tolerated - cardiology f/u Subjective Allergies: Coded Allergies: CODEINE (Verified Allergy, Unknown, 06/17/18) Subjective Above noted tolerating PO (+) BM Objective Last 24 Hour Vital Signs Date Time Temp Pulse Resp B/P (MAP) Pulse Ox O2 Delivery O2 Flow Rate FiO2 05/08/19 12:00 70 05/08/19 12:00 98.7 78 20 105/56 (72) 100 05/08/19 09:09 89 05/08/19 09:08 107/49 05/08/19 09:08 89 107/49 05/08/19 09:07 107/49 05/08/19 09:00 Nasal Cannula 2.0 05/08/19 08:55 98.8 89 23 107/49 (68) 99 05/08/19 08:00 101 05/08/19 04:00 70 05/08/19 04:00 98.1 70 16 116/63 (80) 99 05/08/19 00:00 98.2 83 16 112/68 (83) 99 05/08/19 00:00 83 05/07/19 21:46 97 Nasal Cannula 2.0 28 05/07/19 20:13 88 108/60 05/07/19 20:00 83 05/07/19 20:00 Nasal Cannula 2.0 05/07/19 20:00 99.0 88 19 108/68 (81) 100 05/07/19 17:40 104/67 05/07/19 16:00 81 05/07/19 16:00 Nasal Cannula 2.0 05/07/19 16:00 99.1 79 19 104/67 (79) 99 Intake and Output 05/07/19 05/08/19 18:59 06:59 Intake Total 876.8 ml Output Total 1300 ml 300 ml Balance -423.2 ml -300 ml Intake Oral 550 ml IV Total 326.8 ml Output Urine Total 1300 ml 300 ml # Bowel Movements 1 1 Height (Feet): 5 Height (Inches): 4.00 Weight (Pounds): 126 Objective Debilitated AA woman NCAT supple CTA RR abd soft, (+) edema ext (+) edema Mauro Stephenson MD May 08, 2019 14:45
--- NOTE | 2019-05-08 15:25 | General Progress Note ---
Assessment/Plan Problem List: (1) Cirrhosis ICD Codes: K74.60 - Unspecified cirrhosis of liver SNOMED: 79195933 (2) Metabolic acidosis ICD Codes: E87.2 - Acidosis SNOMED: 58753092 (3) CHF (congestive heart failure), NYHA class IV ICD Codes: I50.9 - Heart failure, unspecified SNOMED: 390988673, 715910509 (4) SVT (supraventricular tachycardia) ICD Codes: I47.1 - Supraventricular tachycardia SNOMED: 4199827 (5) Elevated troponin (6) Anemia ICD Codes: D64.9 - Anemia, unspecified SNOMED: 419589609 (7) SOB (shortness of breath) ICD Codes: R06.02 - Shortness of breath SNOMED: 192118786 (8) A-fib ICD Codes: I48.91 - Unspecified atrial fibrillation SNOMED: 96540592 (9) Gastric cancer ICD Codes: C16.9 - Malignant neoplasm of stomach, unspecified SNOMED: 954757359 (10) Paroxysmal a-fib ICD Codes: I48.0 - Paroxysmal a-fib SNOMED: 912925132 Status: stable, progressing Assessment/Plan: off dobutamine tele diuresis with lasix monitor lytes o2 resp rx pt/ot Subjective ROS Limited/Unobtainable: No Constitutional: Reports: malaise, weakness HEENT: Reports: no symptoms Cardiovascular: Reports: no symptoms Respiratory: Reports: cough, shortness of breath Gastrointestinal/Abdominal: Reports: no symptoms Genitourinary: Reports: no symptoms Neurologic/Psychiatric: Reports: no symptoms Endocrine: Reports: no symptoms Hematologic/Lymphatic: Reports: anemia Allergies: Coded Allergies: CODEINE (Verified Allergy, Unknown, 06/17/18) All Systems: reviewed and negative except above Subjective no events. feeling better. up eating breakfast. no fever or chills. no sob. Objective Last 24 Hour Vital Signs Date Time Temp Pulse Resp B/P (MAP) Pulse Ox O2 Delivery O2 Flow Rate FiO2 05/08/19 12:00 70 05/08/19 12:00 98.7 78 20 105/56 (72) 100 05/08/19 09:09 89 05/08/19 09:08 107/49 05/08/19 09:08 89 107/49 05/08/19 09:07 107/49 05/08/19 09:00 Nasal Cannula 2.0 05/08/19 08:55 98.8 89 23 107/49 (68) 99 05/08/19 08:00 101 05/08/19 04:00 70 05/08/19 04:00 98.1 70 16 116/63 (80) 99 05/08/19 00:00 98.2 83 16 112/68 (83) 99 05/08/19 00:00 83 05/07/19 21:46 97 Nasal Cannula 2.0 28 05/07/19 20:13 88 108/60 05/07/19 20:00 83 05/07/19 20:00 Nasal Cannula 2.0 05/07/19 20:00 99.0 88 19 108/68 (81) 100 05/07/19 17:40 104/67 05/07/19 16:00 81 05/07/19 16:00 Nasal Cannula 2.0 05/07/19 16:00 99.1 79 19 104/67 (79) 99 Intake and Output 05/07/19 05/08/19 18:59 06:59 Intake Total 876.8 ml Output Total 1300 ml 300 ml Balance -423.2 ml -300 ml Intake Oral 550 ml IV Total 326.8 ml Output Urine Total 1300 ml 300 ml # Bowel Movements 1 1 Height (Feet): 5 Height (Inches): 4.00 Weight (Pounds): 126 Objective General Appearance: WD/WN, alert Neck: supple Cardiovascular: normal rate, regular rhythm Respiratory/Chest: chest wall non-tender, lungs clear, normal breath sounds, no respiratory distress Abdomen: normal bowel sounds, non tender, soft, no organomegaly Edema: no edema noted Arm (L), no edema noted Arm (R), no edema noted Leg (L), no edema noted Leg (R), no edema noted Pedal (L), no edema noted Pedal (R), no edema noted Generalized Neurologic: 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
[2019-05-08 16:00] VITALS: BP 97/65
--- NOTE | 2019-05-08 19:48 | NUR ---
HAND-OFF: Report given to Moris Madrigal. Patient awake in bed with family at bedside. Plan of care endorsed.
--- NOTE | 2019-05-08 19:51 | NUR ---
NURSE NOTES: RECEIVED PATIENT RESTING IN BED, NO COMPLAINTS OF PAIN AT THIS TIME. FAMILY AT BEDSIDE. FALL PRECAUTIONS IN PLACE: CALL LIGHT AND BEDSIDE TABLE WITHIN REACH, BED IN LOW POSITION AND BED ALARM ON. PLAN OF CARE REVIEWED.
[2019-05-08 20:00] VITALS: BP 107/57
--- NOTE | 2019-05-08 20:30 | Progress Note ---
DATE: 05/08/2019 CARDIOLOGY PROGRESS NOTE SUBJECTIVE: The patient has been off dobutamine since last evening. She continues with furosemide and is undergoing titration of anti-failure drugs. She feels weak and washed out. OBJECTIVE: VITAL SIGNS: Blood pressure 105/56, pulse 78, and respirations 20. LUNGS: Clear. CARDIAC: Irregularly irregular. Normal S1 and S2 with a 1/6 systolic apical murmur. ABDOMEN: Soft. EXTREMITIES: With no edema. IMPRESSION: 1. Acute on chronic systolic congestive heart failure. 2. Cardiac defibrillator. 3. Paroxysmal atrial fibrillation. 4. Nonsustained ventricular tachycardia. 5. Low range blood pressure. PLAN: 1. Decrease anti-failure therapy in view of low range of blood pressure. 2. Titrate diuretics to maintenance dosing. 3. Recheck laboratory studies. 4. Mobilize in anticipation of discharge. 5. Continue digoxin for inotrope. Miguel Mason M.D. DR: Abner JOB#: [id number] CC:
[2019-05-08] MEDS: Dyna-Hex 2% Top Sol 2oz TOPIC SCH (20:54)
[2019-05-09] VITALS: BP 103/54
[2019-05-09 04:00] VITALS: BP 95/49
--- NOTE | 2019-05-09 07:08 | NUR ---
HAND-OFF: Report given to JAN PAULSON. PATIENT RESTING IN BED, NO SIGNS OF DISTRESS NOTED.
--- NOTE | 2019-05-09 07:35 | NUR ---
NURSE NOTES: Received report from JAN Madrigal. Patient in bed resting, no active s/s cardiac, respiratory distress noticed at this time. AOx2-3, A. fib with HR 79. Patient on 2L oxygen via NC. PICC line on right upper arm, endorsed dressing changed on 05/06/19, Alarcon Catheter draining well to gravity. Bed in lowest position, side rails upx3, bed alarm on, call light within reach. Will continue to monitor.
[2019-05-09 07:36] LABS: BASOPHILS % (AUTO) 1.4 % (0.0-2.0); EOSINOPHILS % (AUTO) 1.4 % (0.0-3.0); HEMATOCRIT 34.3 % (37.0-47.0); HEMOGLOBIN 10.5 G/DL (12.0-16.0); LYMPHOCYTES % (AUTO) 9.5 % (20.0-45.0); MEAN CORPUSCULAR VOLUME 103 FL (80-99); MONOCYTES % (AUTO) 7.9 % (1.0-10.0); NEUTROPHILS % (AUTO) 79.9 % (45.0-75.0); PLATELET COUNT 111 K/UL (150-450); RED BLOOD COUNT 3.33 M/UL (4.20-5.40); RED CELL DISTRIBUTION WIDTH 14.8 % (11.6-14.8); WHITE BLOOD COUNT 10.4 K/UL (4.8-10.8)
[2019-05-09 08:00] VITALS: BP 117/66
[2019-05-09 08:07] LABS: ALANINE AMINOTRANSFERASE 11 U/L (12-78); ALBUMIN 2.6 G/DL (3.4-5.0); ALBUMIN/GLOBULIN RATIO 0.5 (1.0-2.7); ALKALINE PHOSPHATASE 85 U/L (46-116); ANION GAP 4 mmol/L (5-15); ASPARTATE AMINO TRANSFERASE 25 U/L (15-37); BILIRUBIN,DIRECT 0.8 MG/DL (0.0-0.3); BLOOD UREA NITROGEN 19 mg/dL (7-18); CALCIUM 9.1 MG/DL (8.5-10.1); CARBON DIOXIDE 35 MMOL/L (21-32); CHLORIDE 99 MMOL/L (98-107); CREATININE 1.1 MG/DL (0.55-1.30); POTASSIUM 3.7 MMOL/L (3.5-5.1); SODIUM 138 MMOL/L (136-145)
[2019-05-09] MEDS: Digoxin 0.125mg tab ORAL SCH (08:45)
[2019-05-09] MEDS: Sucralfate 1gm tab ORAL SCH (08:45)
[2019-05-09] MEDS: Losartan 50mg tab ORAL SCH (08:45)
[2019-05-09] MEDS: Spironolactone 25mg tab ORAL SCH (08:45)
[2019-05-09] MEDS: Carvedilol 6.25mg Tab ORAL SCH ×2 (08:46→20:52)
[2019-05-09] MEDS: Heparin 5000 units/ml inj SUBQ SCH ×2 (09:00→20:52)
--- NOTE | 2019-05-09 09:11 | NUR ---
CASE MANAGEMENT:REVIEW 05/09/19 SI: AC/CHR CHF. PAFIB. NSVT 96.4 82 18 117/66 91% ON RA H/H-10.5/34.3 PLT-111 CO2+35 IS: COREG PO Q12 DIGOXIN PO QD IV LASIX QD HEPARIN SQ Q12 COZAAR PO QD PROTONIX PO QD RIFAXIMIN PO Q12 ALDACTONE PO QD CARAFATE PO QD : TELEMETRY STATUS DCP: FROM HOME PLAN: CONTINUE DIGOXIN FOR INOTROPE DECREASE ANTI-FAILURE THERAPY PHYSICAL THERAPY
--- NOTE | 2019-05-09 09:29 | General Progress Note ---
Assessment/Plan Status: stable, progressing Assessment/Plan: Assessment - abdominal pain - Thickened colon on CT - Doubt significance - cirrhosis - refusing lactulose - CM/CHF/ICD - coagulopathy - Anasarca - Poor Px Recommendations - Xifaxan - lactulose if agrees - re-evaluate abdominal symptoms tomorrow - check AFP--> normal - check HBV, HCV --> negative - po diet as tolerated - cardiology f/u Subjective Allergies: Coded Allergies: CODEINE (Verified Allergy, Unknown, 06/17/18) Subjective c/o some abd pain and flank pain tolerating PO (+) BM Objective Last 24 Hour Vital Signs Date Time Temp Pulse Resp B/P (MAP) Pulse Ox O2 Delivery O2 Flow Rate FiO2 05/09/19 08:46 82 117/66 05/09/19 08:45 117/66 05/09/19 08:45 82 05/09/19 08:00 96.4 82 18 117/66 (83) 91 05/09/19 04:00 79 05/09/19 04:00 97.5 82 20 95/49 (64) 98 05/09/19 00:00 68 05/09/19 00:00 97.9 87 20 103/54 (70) 98 05/08/19 21:00 Nasal Cannula 2.0 05/08/19 20:59 98 Nasal Cannula 2.0 28 05/08/19 20:54 79 107/57 05/08/19 20:00 98.0 79 20 107/57 (74) 99 05/08/19 20:00 82 05/08/19 18:00 87 05/08/19 16:00 98.7 83 21 97/65 (76) 99 05/08/19 12:00 70 05/08/19 12:00 98.7 78 20 105/56 (72) 100 Intake and Output 05/08/19 05/09/19 19:00 07:00 Intake Total 140 ml 240 ml Output Total 350 ml 500 ml Balance -210 ml -260 ml Intake Oral 140 ml 240 ml Output Urine Total 350 ml 500 ml # Voids 3 # Bowel Movements 1 2 Laboratory Tests 05/09/19 07:13: White Blood Count 10.4, Red Blood Count 3.33L, Hemoglobin 10.5L, Hematocrit 34.3L, Mean Corpuscular Volume 103H, Mean Corpuscular Hemoglobin 31.6H, Mean Corpuscular Hemoglobin Concent 30.7L, Red Cell Distribution Width 14.8, Platelet Count 111L, Mean Platelet Volume 9.3, Neutrophils (%) (Auto) 79.9H, Lymphocytes (%) (Auto) 9.5L, Monocytes (%) (Auto) 7.9, Eosinophils (%) (Auto) 1.4, Basophils (%) (Auto) 1.4, Sodium Level 138, Potassium Level 3.7, Chloride Level 99, Carbon Dioxide Level 35H, Anion Gap 4L, Blood Urea Nitrogen 19H, Creatinine 1.1, Estimat Glomerular Filtration Rate , Glucose Level 109H, Calcium Level 9.1, Magnesium Level 2.2, Total Bilirubin 2.0H, Direct Bilirubin 0.8H, Aspartate Amino Transf (AST/SGOT) 25, Alanine Aminotransferase (ALT/SGPT) 11L, Alkaline Phosphatase 85, Pro-B-Type Natriuretic Peptide 15516M, Total Protein 7.7, Albumin 2.6L, Globulin 5.1, Albumin/Globulin Ratio 0.5L Height (Feet): 5 Height (Inches): 4.00 Weight (Pounds): 132 Objective Patient declined exam today (05/09) Mauro Stephenson MD May 09, 2019 09:29
--- NOTE | 2019-05-09 10:30 | NUR ---
NURSE NOTES:WOUND CARE NOTES:Non-blanching erythema without induration/fluctuance or tenderness sacrum (L)7cm x (W)2cm. Shearing noted to coccygeal area (L)2cm x (W)0.9cm. Pt verbalized tenderness at site. Non-blanchable erythema R and L heels. Both heels are boggy but non-tender when minimally palpated. Pt informed of skin breakdown. Pt has been educated on wound prevention. Encouraged to frequently turn while in bed. Instructed on off-lifting buttocks while repositioning to prevent friction against bed linen.Encouraged to keep heel off-loaded with pillow. Pt agreed to comply as instructed. Tx.Plan: Apply Moisture Barrier Paste to Sacrum. Cover with Optifoam drsg. Change every 3 days and prn. Apply Cavilon Skin BArrier to both heels. Cover each heel with Optifoam drsg. Change every 7 days and prn. Encourage and assist as needed with repositioning at least every 2hours or as tolerated. Off-load heels with pillow.
--- NOTE | 2019-05-09 11:00 | NUR ---
NURSE NOTES: When skin assessed with wound care nurse, 2cm x 7cm pressure injury on sacral area assessed, no drainage. On bilateral heels, non-blanchable redness noticed, skin is intact at this time, no drainage. Cavilon and Optifoam applied. Picture taken for bilateral heels, WCP initiated, CN made aware. Will take pressure off the heals and turn pt at least q2h. Will continue to monitor.
[2019-05-09 12:00] VITALS: BP 110/70
--- NOTE | 2019-05-09 12:02 | Surgery Progress Note ---
Surgery Progress Note Subjective Additional Comments overall improved and comfortable no n/v/f/c leukocytosis resolved lft mild elevated but improving Objective Last 24 Hour Vital Signs Date Time Temp Pulse Resp B/P (MAP) Pulse Ox O2 Delivery O2 Flow Rate FiO2 05/09/19 09:00 Nasal Cannula 2.0 05/09/19 08:46 82 117/66 05/09/19 08:45 117/66 05/09/19 08:45 82 05/09/19 08:00 87 05/09/19 08:00 96.4 82 18 117/66 (83) 91 05/09/19 04:00 79 05/09/19 04:00 97.5 82 20 95/49 (64) 98 05/09/19 00:00 68 05/09/19 00:00 97.9 87 20 103/54 (70) 98 05/08/19 21:00 Nasal Cannula 2.0 05/08/19 20:59 98 Nasal Cannula 2.0 28 05/08/19 20:54 79 107/57 05/08/19 20:00 98.0 79 20 107/57 (74) 99 05/08/19 20:00 82 05/08/19 18:00 87 05/08/19 16:00 98.7 83 21 97/65 (76) 99 I&O Intake and Output 05/08/19 05/09/19 18:59 06:59 Intake Total 140 ml 120 ml Output Total 350 ml 500 ml Balance -210 ml -380 ml Intake Oral 140 ml 120 ml Output Urine Total 350 ml 500 ml # Voids 3 # Bowel Movements 1 2 Cardiovascular: RSR Respiratory: clear Abdomen: soft, flat, non-distended Extremities: no cyanosis Laboratory Tests Test 05/09/19 07:13 White Blood Count 10.4 K/UL (4.8-10.8) Red Blood Count 3.33 M/UL (4.20-5.40) L Hemoglobin 10.5 G/DL (12.0-16.0) L Hematocrit 34.3 % (37.0-47.0) L Mean Corpuscular Volume 103 FL (80-99) H Mean Corpuscular Hemoglobin 31.6 PG (27.0-31.0) H Mean Corpuscular Hemoglobin Concent 30.7 G/DL (32.0-36.0) L Red Cell Distribution Width 14.8 % (11.6-14.8) Platelet Count 111 K/UL (150-450) L Mean Platelet Volume 9.3 FL (6.5-10.1) Neutrophils (%) (Auto) 79.9 % (45.0-75.0) H Lymphocytes (%) (Auto) 9.5 % (20.0-45.0) L Monocytes (%) (Auto) 7.9 % (1.0-10.0) Eosinophils (%) (Auto) 1.4 % (0.0-3.0) Basophils (%) (Auto) 1.4 % (0.0-2.0) Sodium Level 138 MMOL/L (136-145) Potassium Level 3.7 MMOL/L (3.5-5.1) Chloride Level 99 MMOL/L (98-107) Carbon Dioxide Level 35 MMOL/L (21-32) H Anion Gap 4 mmol/L (5-15) L Blood Urea Nitrogen 19 mg/dL (7-18) H Creatinine 1.1 MG/DL (0.55-1.30) Estimat Glomerular Filtration Rate mL/min (>60) Glucose Level 109 MG/DL (74-106) H Calcium Level 9.1 MG/DL (8.5-10.1) Magnesium Level 2.2 MG/DL (1.8-2.4) Total Bilirubin 2.0 MG/DL (0.2-1.0) H Direct Bilirubin 0.8 MG/DL (0.0-0.3) H Aspartate Amino Transf (AST/SGOT) 25 U/L (15-37) Alanine Aminotransferase (ALT/SGPT) 11 U/L (12-78) L Alkaline Phosphatase 85 U/L (46-116) Pro-B-Type Natriuretic Peptide 66185 pg/mL (0-125) H Total Protein 7.7 G/DL (6.4-8.2) Albumin 2.6 G/DL (3.4-5.0) L Globulin 5.1 g/dL Albumin/Globulin Ratio 0.5 (1.0-2.7) L Plan Problems: (1) Abdominal pain Assessment & Plan: 83 F with abdominal pain. no n/v. overall decompensated dehydrated will need IV fluids no IV access obtained at this time by multiple nurse attempts see note central line out. site clean PICC line in and clean / functional CT findings with Impression: Anasarca, with diffuse edema of the subcutaneous, mesenteric, abdominal fat, also demonstrated on the prior exam. There is also pleural and peritoneal fluid As mentioned above, bilateral pleural effusions. Increased on the right, similar to the prior exam on the left. Resultant basilar compressive atelectatic changes Cardiomegaly and pacemaker Questionable wall thickening of the distal descending colon. Possibly on the basis of generalized edema, colitis possible Bilateral renal cysts. pain resolving no acute surgical intervention planned bowel regimen trend labs appreciate GI input. diet as tolerated thank you will follow with recs (2) Lactic acid acidosis Assessment & Plan: resolved (3) SOB (shortness of breath) Remi Lindquist May 09, 2019 12:02
--- NOTE | 2019-05-09 12:07 | NUR ---
RD ASSESSMENT & RECOMMENDATIONS SEE CARE ACTIVITY FOR COMPLETE ASSESSMENT DAILY ESTIMATED NEEDS: Needs based on liver dysfunction, cardiac/ 58.6kg 25-30 kcals/kg 4700-8911 total kcals 1-1.5 g protein/kg 59-88 g total protein 20-25 mL/kg 9663-8222 total fluid mLs NUTRITION DIAGNOSIS: Altered nutrition related lab values R/T cirrhosis, CHF, DM as evidenced by elev AST, elev T bili(2.4-> 2.0), elev NH3 (56, not updated), elev BNP (15893-> 27724), mildly elev BGs-> improved. CURRENT DIET:REGULAR, soft easy chew PO DIET RECOMMENDATIONS: LOW NA/ texture as tolerated ADDITIONAL RECOMMENDATIONS: * RECALIBRATE DAILY BEDSCALE WT * Monitor lytes daily on diuretics/ replete as needed * H/o DM, monitor BG, need for hypoglycemics and/or diet change * A1C for eval of glycemic control- h/o DM * Glucerna 1 tetra paul daily w/ variable PO intake . .
--- NOTE | 2019-05-09 13:47 | NUR ---
Social Work This SW received notification from the mop handle assembler regarding a home assessment needed (to determine availability of family to care for patient after discharge). This Sw spoke with patients son, Michael ([phone]) who explains he lives with patient, but works everyday (not able to speak with this SW for very long and requesting this SW to contact patients sisterGabby @ [phone]. This Sw spoke with sister who explains son is not available to assist patient after discharge, while stating patient can come and live with her and her spouse @ the following location: [address] [place] [address]. However, patients sister is ambulatory with walker and states patient will need to be independent overall for her to come and stay there. Sisters spouse can assist, but is gone during the day typically. This SW recommended SNF placement due to patient does not have a family who can provide care for patient upon discharge. Pending progress with therapy here.
--- NOTE | 2019-05-09 15:32 | NUR ---
NURSE NOTES: Dr. Frankel made aware of generalized red rash over the body and patient schedule for nystatin BID for back. No order given at this time. Will continue to monitor.
[2019-05-09 16:00] VITALS: BP 117/66
--- NOTE | 2019-05-09 18:50 | NUR ---
NURSE NOTES: Dr. Mason at the nursing station, made aware patient has red rash over body suspecting allergic reaction. No order given at this time. Dr. Mason made aware of light caitlin urine color collected in Alarcon Catheter. Per Dr. Mason, collect urine for culture and d/c Alarcon Catheter. Alarcon Catheter disconnected at 1850. Will continue to monitor.
[2019-05-09 19:06] LABS: APPEARANCE,URINE SLIGHTLY CLOUDY; BILIRUBIN, URINE NEGATIVE (NEGATIVE); GLUCOSE, URINE (UA) NEGATIVE (NEGATIVE); KETONES,URINE NEGATIVE (NEGATIVE); LEUKOCYTE ESTERASE ,URINE 3+ (NEGATIVE); NITRITE,URINE NEGATIVE (NEGATIVE); PH,URINE 7 (4.5-8.0); PROTEIN,URINE 3+ (NEGATIVE); UROBILINOGEN,URINE NORMAL MG/DL (0.0-1.0)
[2019-05-09 19:14] LABS: COLOR,URINE YELLOW
--- NOTE | 2019-05-09 19:48 | NUR ---
HAND-OFF: Report given to JAN Blunt.
--- NOTE | 2019-05-09 19:50 | NUR ---
NURSE NOTES: Pt received from JAN Mar alert and oriented x3 with no acute s/s of distress noted. R upper arm midline asymptomatic and patent, aspirated and flushed with no issues. On 2L NC, saturating at 95%. Bed alarm on. Bed in lowest position, call light and belongings within reach.
[2019-05-09 20:00] VITALS: BP 131/75
[2019-05-09] MEDS: Dyna-Hex 2% Top Sol 2oz TOPIC SCH (20:52)
[2019-05-10] VITALS: BP 103/54
[2019-05-10 04:00] VITALS: BP 115/51
--- NOTE | 2019-05-10 04:56 | NUR ---
NURSE NOTES: Pt sleeping with no acute s/s of distress noted. R upper arm midline asymptomatic and patent. Bed in lowest position, call light and belongings within reach.
--- NOTE | 2019-05-10 07:00 | Progress Note ---
DATE: 05/09/2019 CARDIOLOGY PROGRESS NOTE SUBJECTIVE: The patient has a diffuse rash that started 1 to 2 days ago. She has itching. OBJECTIVE: VITAL SIGNS: Blood pressure 131/75, pulse 88, respirations 20, afebrile. LUNGS: Clear. CARDIAC: Regular. Normal S1, paradoxically split S2. A 2/6 holosystolic murmur. ABDOMEN: Soft. EXTREMITIES: No edema. Diffuse rash on the trunk and extremities. IMPRESSION: 1. Allergic reaction/drug rash, most recently added medication is spironolactone. 2. Acute on chronic systolic congestive heart failure, now compensated. 3. Cardiac defibrillator. 4. Paroxysmal atrial and ventricular arrhythmias. 5. Type 2 diabetes mellitus. PLAN: 1. Discontinue Aldactone. 2. for itching. 3. Optimize cardiac therapy and mobilize. 4. We will also discontinue as that is the new antibiotic added. Miguel Mason M.D. DR: CADE JOB#: [id number] CC:
--- NOTE | 2019-05-10 07:05 | NUR ---
HAND-OFF: Report given to JAN Box. No acute s/s of distress noted.
--- NOTE | 2019-05-10 07:08 | General Progress Note ---
Assessment/Plan Status: stable, progressing Assessment/Plan: Assessment - abdominal pain - better - Thickened colon on CT - Doubt significance - cirrhosis - refusing lactulose - CM/CHF/ICD - coagulopathy - Anasarca - Poor Px Recommendations - Xifaxan - lactulose if agrees - check AFP--> normal - check HBV, HCV --> negative - po diet as tolerated - cardiology f/u Subjective Allergies: Coded Allergies: CODEINE (Verified Allergy, Unknown, 06/17/18) Subjective Feels better today less pain tolerating PO (+) BM Objective Last 24 Hour Vital Signs Date Time Temp Pulse Resp B/P (MAP) Pulse Ox O2 Delivery O2 Flow Rate FiO2 05/10/19 04:00 98.2 82 16 115/51 (72) 99 05/10/19 04:00 77 05/10/19 01:41 98 Nasal Cannula 2.0 28 05/10/19 00:00 98.2 68 16 103/54 (70) 100 05/10/19 00:00 76 05/09/19 21:00 Nasal Cannula 2.0 05/09/19 20:52 88 131/75 05/09/19 20:00 98.2 88 16 131/75 (93) 98 05/09/19 20:00 71 05/09/19 16:00 96.4 70 18 117/66 (83) 91 05/09/19 16:00 84 05/09/19 12:00 97.6 73 18 110/70 (83) 95 05/09/19 12:00 76 05/09/19 10:00 97 Nasal Cannula 2.0 28 05/09/19 09:00 Nasal Cannula 2.0 05/09/19 08:46 82 117/66 05/09/19 08:45 117/66 05/09/19 08:45 82 05/09/19 08:00 87 05/09/19 08:00 96.4 82 18 117/66 (83) 91 Intake and Output 05/09/19 05/10/19 19:00 07:00 Intake Total 240 ml Output Total 1300 ml Balance -1060 ml Intake Oral 240 ml Output Urine Total 1300 ml # Voids 3 2 # Bowel Movements 1 1 Laboratory Tests 05/09/19 07:13: White Blood Count 10.4, Red Blood Count 3.33L, Hemoglobin 10.5L, Hematocrit 34.3L, Mean Corpuscular Volume 103H, Mean Corpuscular Hemoglobin 31.6H, Mean Corpuscular Hemoglobin Concent 30.7L, Red Cell Distribution Width 14.8, Platelet Count 111L, Mean Platelet Volume 9.3, Neutrophils (%) (Auto) 79.9H, Lymphocytes (%) (Auto) 9.5L, Monocytes (%) (Auto) 7.9, Eosinophils (%) (Auto) 1.4, Basophils (%) (Auto) 1.4, Sodium Level 138, Potassium Level 3.7, Chloride Level 99, Carbon Dioxide Level 35H, Anion Gap 4L, Blood Urea Nitrogen 19H, Creatinine 1.1, Estimat Glomerular Filtration Rate , Glucose Level 109H, Calcium Level 9.1, Magnesium Level 2.2, Total Bilirubin 2.0H, Direct Bilirubin 0.8H, Aspartate Amino Transf (AST/SGOT) 25, Alanine Aminotransferase (ALT/SGPT) 11L, Alkaline Phosphatase 85, Pro-B-Type Natriuretic Peptide 24461E, Total Protein 7.7, Albumin 2.6L, Globulin 5.1, Albumin/Globulin Ratio 0.5L 05/09/19 18:49: Urine Color Yellow, Urine Appearance Slightly cloudy, Urine pH 7, Urine Specific [place] 1.005, Urine Protein 3+H, Urine Glucose (UA) Negative, Urine Ketones Negative, Urine Blood 4+H, Urine Nitrite Negative, Urine Bilirubin Negative, Urine Urobilinogen Normal, Urine Leukocyte Esterase 3+H, Urine RBC 5- 10H, Urine WBC 60-80H, Urine Squamous Epithelial Cells Occasional, Urine Bacteria Few Height (Feet): 5 Height (Inches): 4.00 Weight (Pounds): 125 Objective WDWN NCAT supple CTA RR soft ND No edema Mauro Stephenson MD May 10, 2019 07:08
--- NOTE | 2019-05-10 07:10 | NUR ---
NURSE NOTES: Received report from JAN Blunt. in bed AAO X3 with episodes of confusion, denies any pain or discomfort Double lumen upper midline is intact and patent. No S/S of respiratory distress or SOB noted. Placed on continuous cardiac monitoring per protocol. Safety precaution in place, siderails up x3, brakes engaged for safety, call light within reach, bed in lowest position. Needs and wants anticipated and attended, will continue plan of care and monitor for any changes noted.
[2019-05-10 08:00] VITALS: BP 132/76
[2019-05-10] MEDS: Sucralfate 1gm tab ORAL SCH (08:56)
[2019-05-10] MEDS: Digoxin 0.125mg tab ORAL SCH (08:56)
[2019-05-10] MEDS: Furosemide 40mg tab ORAL SCH (08:57)
[2019-05-10] MEDS: Carvedilol 6.25mg Tab ORAL SCH ×2 (08:57→20:43)
[2019-05-10] MEDS: Losartan 50mg tab ORAL SCH (08:58)
[2019-05-10] MEDS: Heparin 5000 units/ml inj SUBQ SCH ×2 (08:59→20:43)
--- NOTE | 2019-05-10 11:50 | Surgery Progress Note ---
Surgery Progress Note Subjective Additional Comments doing well today working with physical therapy and going well no complaints tolerating diet Objective Last 24 Hour Vital Signs Date Time Temp Pulse Resp B/P (MAP) Pulse Ox O2 Delivery O2 Flow Rate FiO2 05/10/19 09:00 Nasal Cannula 2.0 05/10/19 08:58 132/76 05/10/19 08:57 86 132/76 05/10/19 08:56 86 05/10/19 08:00 98.0 86 20 132/76 (94) 99 05/10/19 08:00 82 05/10/19 04:00 98.2 82 16 115/51 (72) 99 05/10/19 04:00 77 05/10/19 01:41 98 Nasal Cannula 2.0 28 05/10/19 00:00 98.2 68 16 103/54 (70) 100 05/10/19 00:00 76 05/09/19 21:00 Nasal Cannula 2.0 05/09/19 20:52 88 131/75 05/09/19 20:00 98.2 88 16 131/75 (93) 98 05/09/19 20:00 71 05/09/19 16:00 96.4 70 18 117/66 (83) 91 05/09/19 16:00 84 05/09/19 12:00 97.6 73 18 110/70 (83) 95 05/09/19 12:00 76 I&O Intake and Output 05/09/19 05/10/19 19:00 07:00 Intake Total 240 ml Output Total 1300 ml Balance -1060 ml Intake Oral 240 ml Output Urine Total 1300 ml # Voids 3 2 # Bowel Movements 1 1 Laboratory Tests Test 05/09/19 18:49 Urine Color Yellow Urine Appearance Slightly cloudy Urine pH 7 (4.5-8.0) Urine Specific [place] 1.005 (1.005-1.035) Urine Protein 3+ (NEGATIVE) H Urine Glucose (UA) Negative (NEGATIVE) Urine Ketones Negative (NEGATIVE) Urine Blood 4+ (NEGATIVE) H Urine Nitrite Negative (NEGATIVE) Urine Bilirubin Negative (NEGATIVE) Urine Urobilinogen Normal MG/DL (0.0-1.0) Urine Leukocyte Esterase 3+ (NEGATIVE) H Urine RBC 5-10 /HPF (0 - 2) H Urine WBC 60-80 /HPF (0 - 2) H Urine Squamous Epithelial Cells Occasional /LPF Urine Bacteria Few /HPF (NONE) Plan Problems: (1) Abdominal pain Assessment & Plan: 83 F with abdominal pain. no n/v. overall decompensated dehydrated will need IV fluids no IV access obtained at this time by multiple nurse attempts see note central line out. site clean PICC line in and clean / functional CT findings with Impression: Anasarca, with diffuse edema of the subcutaneous, mesenteric, abdominal fat, also demonstrated on the prior exam. There is also pleural and peritoneal fluid As mentioned above, bilateral pleural effusions. Increased on the right, similar to the prior exam on the left. Resultant basilar compressive atelectatic changes Cardiomegaly and pacemaker Questionable wall thickening of the distal descending colon. Possibly on the basis of generalized edema, colitis possible Bilateral renal cysts. pain resolving no acute surgical intervention planned bowel regimen trend labs appreciate GI input. diet as tolerated thank you will follow with recs (2) Lactic acid acidosis Assessment & Plan: resolved (3) SOB (shortness of breath) Remi Lindquist May 10, 2019 11:50
[2019-05-10 12:00] VITALS: BP 115/57
[2019-05-10 16:00] VITALS: BP 106/71
--- NOTE | 2019-05-10 19:50 | NUR ---
HAND-OFF: Report given to JAN Monk.Patient is in stable condition.
--- NOTE | 2019-05-10 19:58 | NUR ---
NURSE NOTES: Received report from JAN Box. Patient is awake lying semi-merida's; resting comfortably. No signs of acute distress noted; denies pain at this time. AOx4; able to make needs known. Ambulates to the bedside commode with assist. Checked right upper arm PICC; patent and flushed. No erythema, bleeding, or infiltration noted. Bed at lowest position, brakes on, siderails up x3. Call light within reach. Will continue to monitor.
[2019-05-10 20:00] VITALS: BP 116/59
[2019-05-10] MEDS: Dyna-Hex 2% Top Sol 2oz TOPIC SCH (20:42)
[2019-05-11] VITALS: BP 135/74
--- NOTE | 2019-05-11 02:00 | Progress Note ---
DATE: 05/10/2019 INTERNAL MEDICINE PROGRESS NOTE SUBJECTIVE: Her appetite is good. Itching persists. Urine culture negative. Right upper extremity PICC line site clean and dry. OBJECTIVE: LUNGS: Remained clear. CARDIAC: Irregularly irregular rhythm. Normal S1, paradoxically split S2 and 2/6 systolic apical murmur. EXTREMITIES: No edema. IMPRESSION: Slow progress, but improving. PLAN: 1. Recheck laboratory studies. 2. Titrate anti-failure regimen. 3. Remain off Xifaxan and Aldactone. 4. Observe for drug rash or worsening signs and symptoms. Miguel Mason M.D. DR: GLORIA JOB#: [id number] CC:
--- NOTE | 2019-05-11 03:56 | NUR ---
NURSE NOTES: Patient is asleep lying semi-merida's; resting comfortably. No signs of acute distress or pain noted at this time.
[2019-05-11 06:07] LABS: BASOPHILS % (AUTO) 2.4 % (0.0-2.0); EOSINOPHILS % (AUTO) 1.9 % (0.0-3.0); HEMATOCRIT 33.7 % (37.0-47.0); HEMOGLOBIN 10.1 G/DL (12.0-16.0); LYMPHOCYTES % (AUTO) 15.7 % (20.0-45.0); MEAN CORPUSCULAR VOLUME 103 FL (80-99); MONOCYTES % (AUTO) 11.5 % (1.0-10.0); NEUTROPHILS % (AUTO) 68.5 % (45.0-75.0); PLATELET COUNT 127 K/UL (150-450); RED BLOOD COUNT 3.27 M/UL (4.20-5.40); RED CELL DISTRIBUTION WIDTH 14.9 % (11.6-14.8)
[2019-05-11 06:28] LABS: ALANINE AMINOTRANSFERASE 12 U/L (12-78); ALBUMIN 2.6 G/DL (3.4-5.0); ALBUMIN/GLOBULIN RATIO 0.5 (1.0-2.7); ALKALINE PHOSPHATASE 85 U/L (46-116); ANION GAP 4 mmol/L (5-15); ASPARTATE AMINO TRANSFERASE 23 U/L (15-37); BILIRUBIN,TOTAL 1.8 MG/DL (0.2-1.0); BLOOD UREA NITROGEN 18 mg/dL (7-18); CALCIUM 8.7 MG/DL (8.5-10.1); CARBON DIOXIDE 36 MMOL/L (21-32); CHLORIDE 100 MMOL/L (98-107); CREATININE 1.1 MG/DL (0.55-1.30); POTASSIUM 3.6 MMOL/L (3.5-5.1); SODIUM 140 MMOL/L (136-145)
[2019-05-11 06:51] LABS: BILIRUBIN,DIRECT 0.8 MG/DL (0.0-0.3)
--- NOTE | 2019-05-11 07:30 | NUR ---
HAND-OFF: Report given to JAN Box and JAN Longoria. Patient is awake sitting on the edge of the bed eating breakfast. In stable condition.
--- NOTE | 2019-05-11 07:35 | NUR ---
NURSE NOTES: Patient in bed , received report from JAN Monk. Patient appeared calm, alert, and was eating breakfast. Flushed IV--patent, intact. Bed on lowest position with bedside rails up x2 and brakes engaged for safety. Bed alarm on. Call light in reach. patient stable and no co pain. Continuing with plan of care.
[2019-05-11 08:00] VITALS: BP 135/69
[2019-05-11] MEDS: Sucralfate 1gm tab ORAL SCH (08:52)
[2019-05-11] MEDS: Furosemide 40mg tab ORAL SCH (08:52)
[2019-05-11] MEDS: Carvedilol 6.25mg Tab ORAL SCH ×2 (08:52→21:05)
[2019-05-11] MEDS: Digoxin 0.125mg tab ORAL SCH (08:53)
[2019-05-11] MEDS: Losartan 50mg tab ORAL SCH (08:54)
[2019-05-11] MEDS: Heparin 5000 units/ml inj SUBQ SCH ×2 (08:58→21:00)
[2019-05-11 12:00] VITALS: BP 127/69
--- NOTE | 2019-05-11 12:28 | General Progress Note ---
Assessment/Plan Status: stable, progressing Assessment/Plan: Assessment - abdominal pain - resolved - cirrhosis - refused lactulose and off of Xifaxan due to a rash - CM/CHF/ICD - coagulopathy - Anasarca - Poor Px Recommendations - Monitor mental status. Watch for encephalopathy. - lactulose if agrees - check AFP--> normal - check HBV, HCV --> negative - po diet as tolerated - cardiology f/u Subjective Allergies: Coded Allergies: CODEINE (Verified Allergy, Unknown, 06/17/18) Subjective Feels OK today No abd pain tolerating PO (+) BM Xifaxan held due to rash Objective Last 24 Hour Vital Signs Date Time Temp Pulse Resp B/P (MAP) Pulse Ox O2 Delivery O2 Flow Rate FiO2 05/11/19 11:57 82 05/11/19 11:25 Room Air 05/11/19 08:54 135/69 05/11/19 08:53 89 05/11/19 08:52 89 135/69 05/11/19 08:00 98.8 89 18 135/69 (91) 100 05/11/19 07:43 86 05/11/19 07:35 98 Nasal Cannula 2.0 28 05/11/19 04:00 75 05/11/19 00:00 98.1 88 18 135/74 (94) 94 05/11/19 00:00 83 05/10/19 21:42 98 Nasal Cannula 2.0 28 05/10/19 21:00 Room Air 05/10/19 20:43 87 116/59 05/10/19 20:00 101 05/10/19 20:00 97.9 87 18 116/59 (78) 94 05/10/19 16:00 67 05/10/19 16:00 98.2 84 18 106/71 (83) 94 Intake and Output 05/10/19 05/11/19 19:00 07:00 Intake Total 240 ml 120 ml Balance 240 ml 120 ml Intake Oral 240 ml 120 ml # Voids 3 3 # Bowel Movements 2 Laboratory Tests 05/11/19 05:46: White Blood Count 7.0, Red Blood Count 3.27L, Hemoglobin 10.1L, Hematocrit 33.7L , Mean Corpuscular Volume 103H, Mean Corpuscular Hemoglobin 31.0, Mean Corpuscular Hemoglobin Concent 30.0L, Red Cell Distribution Width 14.9H, Platelet Count 127L, Mean Platelet Volume 9.3, Neutrophils (%) (Auto) 68.5, Lymphocytes (%) (Auto) 15.7L, Monocytes (%) (Auto) 11.5H, Eosinophils (%) (Auto ) 1.9, Basophils (%) (Auto) 2.4H, Sodium Level 140, Potassium Level 3.6, Chloride Level 100, Carbon Dioxide Level 36H, Anion Gap 4L, Blood Urea Nitrogen 18, Creatinine 1.1, Estimat Glomerular Filtration Rate , Glucose Level 162H, Calcium Level 8.7, Magnesium Level 1.8, Total Bilirubin 1.8H, Direct Bilirubin 0.8H, Aspartate Amino Transf (AST/SGOT) 23, Alanine Aminotransferase (ALT/SGPT) 12, Alkaline Phosphatase 85, Pro-B-Type Natriuretic Peptide 02486H, Total Protein 7.8, Albumin 2.6L, Globulin 5.2, Albumin/Globulin Ratio 0.5L Height (Feet): 5 Height (Inches): 4.00 Weight (Pounds): 125 Objective WDWN NCAT supple CTA RR soft ND No edema Mauro Stephenson MD May 11, 2019 12:28
--- NOTE | 2019-05-11 13:48 | Surgery Progress Note ---
Surgery Progress Note Subjective Symptoms: improved, tolerating diet, passing flatus Additional Comments dry skin. causing itching Objective Last 24 Hour Vital Signs Date Time Temp Pulse Resp B/P (MAP) Pulse Ox O2 Delivery O2 Flow Rate FiO2 05/11/19 12:00 98.6 82 18 127/69 (88) 96 05/11/19 11:57 82 05/11/19 11:25 Room Air 05/11/19 08:54 135/69 05/11/19 08:53 89 05/11/19 08:52 89 135/69 05/11/19 08:00 98.8 89 18 135/69 (91) 100 05/11/19 07:43 86 05/11/19 07:35 98 Nasal Cannula 2.0 28 05/11/19 04:00 75 05/11/19 00:00 98.1 88 18 135/74 (94) 94 05/11/19 00:00 83 05/10/19 21:42 98 Nasal Cannula 2.0 28 05/10/19 21:00 Room Air 05/10/19 20:43 87 116/59 05/10/19 20:00 101 05/10/19 20:00 97.9 87 18 116/59 (78) 94 05/10/19 16:00 67 05/10/19 16:00 98.2 84 18 106/71 (83) 94 I&O Intake and Output 05/10/19 05/11/19 19:00 07:00 Intake Total 240 ml 120 ml Balance 240 ml 120 ml Intake Oral 240 ml 120 ml # Voids 3 3 # Bowel Movements 2 Dressing: dry Cardiovascular: RSR Respiratory: clear Abdomen: soft, flat Extremities: no edema, no tenderness, no cyanosis Laboratory Tests Test 05/11/19 05:46 White Blood Count 7.0 K/UL (4.8-10.8) Red Blood Count 3.27 M/UL (4.20-5.40) L Hemoglobin 10.1 G/DL (12.0-16.0) L Hematocrit 33.7 % (37.0-47.0) L Mean Corpuscular Volume 103 FL (80-99) H Mean Corpuscular Hemoglobin 31.0 PG (27.0-31.0) Mean Corpuscular Hemoglobin Concent 30.0 G/DL (32.0-36.0) L Red Cell Distribution Width 14.9 % (11.6-14.8) H Platelet Count 127 K/UL (150-450) L Mean Platelet Volume 9.3 FL (6.5-10.1) Neutrophils (%) (Auto) 68.5 % (45.0-75.0) Lymphocytes (%) (Auto) 15.7 % (20.0-45.0) L Monocytes (%) (Auto) 11.5 % (1.0-10.0) H Eosinophils (%) (Auto) 1.9 % (0.0-3.0) Basophils (%) (Auto) 2.4 % (0.0-2.0) H Sodium Level 140 MMOL/L (136-145) Potassium Level 3.6 MMOL/L (3.5-5.1) Chloride Level 100 MMOL/L (98-107) Carbon Dioxide Level 36 MMOL/L (21-32) H Anion Gap 4 mmol/L (5-15) L Blood Urea Nitrogen 18 mg/dL (7-18) Creatinine 1.1 MG/DL (0.55-1.30) Estimat Glomerular Filtration Rate mL/min (>60) Glucose Level 162 MG/DL (74-106) H Calcium Level 8.7 MG/DL (8.5-10.1) Magnesium Level 1.8 MG/DL (1.8-2.4) Total Bilirubin 1.8 MG/DL (0.2-1.0) H Direct Bilirubin 0.8 MG/DL (0.0-0.3) H Aspartate Amino Transf (AST/SGOT) 23 U/L (15-37) Alanine Aminotransferase (ALT/SGPT) 12 U/L (12-78) Alkaline Phosphatase 85 U/L (46-116) Pro-B-Type Natriuretic Peptide 16237 pg/mL (0-125) H Total Protein 7.8 G/DL (6.4-8.2) Albumin 2.6 G/DL (3.4-5.0) L Globulin 5.2 g/dL Albumin/Globulin Ratio 0.5 (1.0-2.7) L Plan Problems: (1) Abdominal pain Assessment & Plan: 83 F with abdominal pain. no n/v. overall decompensated dehydrated will need IV fluids no IV access obtained at this time by multiple nurse attempts see note central line out. site clean PICC line in and clean / functional CT findings with Impression: Anasarca, with diffuse edema of the subcutaneous, mesenteric, abdominal fat, also demonstrated on the prior exam. There is also pleural and peritoneal fluid As mentioned above, bilateral pleural effusions. Increased on the right, similar to the prior exam on the left. Resultant basilar compressive atelectatic changes Cardiomegaly and pacemaker Questionable wall thickening of the distal descending colon. Possibly on the basis of generalized edema, colitis possible Bilateral renal cysts. pain resolving skin cream for dry skin no acute surgical intervention planned bowel regimen trend labs appreciate GI input. diet as tolerated thank you will follow with recs (2) Lactic acid acidosis Assessment & Plan: resolved (3) SOB (shortness of breath) Remi Lindquist May 11, 2019 13:48
--- NOTE | 2019-05-11 15:22 | NUR ---
CASE MANAGEMENT:REVIEW 05/11/19 SI: AC/CHR CHF. PAFIB. NSVT 98.6 82 18 127/69 96% ON RA H/H-10.1/33.7 PLT-127 BNP+ IS: COREG PO Q12 DIGOXIN PO QD LASIX PO QD HEPARIN SQ Q12 COZAAR PO QD PROTONIX PO QD CARAFATE PO QD : TELEMETRY STATUS DCP: FROM HOME
--- NOTE | 2019-05-11 15:27 | NUR ---
DISCHARGE PLANNING PATIENT IS REFUSING TO GO ANYWHERE ELSE EXCEPT HOME REFERRED TP [facility] T: [phone] F: [phone]
[2019-05-11 16:00] VITALS: BP 118/65
--- NOTE | 2019-05-11 19:17 | NUR ---
NURSE NOTES: Received pt from JAN Ferraro. Pt is awake and resting at bedside. Iv midline site intact. Bed locked in lowest position, call light within reach. Will continue with plan of care.
--- NOTE | 2019-05-11 19:18 | NUR ---
HAND-OFF: Report given to JAN Jasso. Patient in stable condition.
[2019-05-11] MEDS: Dyna-Hex 2% Top Sol 2oz TOPIC SCH (19:46)
[2019-05-11 20:00] VITALS: BP 148/73
[2019-05-12] VITALS: BP 129/84
--- NOTE | 2019-05-12 02:45 | Progress Note ---
DATE: 05/11/2019 CARDIOLOGY AND INTERNAL MEDICINE PROGRESS NOTE SUBJECTIVE: The patient feels better, less short of breath. OBJECTIVE: VITAL SIGNS: Blood pressure 124/87, pulse 76, and respirations 18. LUNGS: Clear. CARDIAC: Regular. 1/6 systolic murmur at apex. ABDOMEN: Soft. EXTREMITIES: No edema. LABORATORY DATA: WBC count 7 and hemoglobin 10. Potassium 3.6, BUN 18, and creatinine 1.1. IMPRESSION: 1. Severe cardiomyopathy with systolic dysfunction. 2. Acute on chronic systolic congestive heart failure, now mostly compensated. 3. Hypomagnesemia, corrected. 4. Type 2 diabetes mellitus, on oral therapy. 5. Fungal cystitis. PLAN: 1. Maintenance dose oral diuretic with titration of anti-failure regimen in anticipation of discharge. 2. Antifungal therapy. 3. Remove central access prior to discharge. Miguel Mason M.D. DR: MER JOB#: [id number] CC:
[2019-05-12 04:00] VITALS: BP 122/70
--- NOTE | 2019-05-12 07:15 | NUR ---
NURSE NOTES: Received pt from Romero MONTOYA. Pt is awake and resting at bedside and eating breakfast. No c/o pain. No SOB noted. Breathing even and unlabored on room air. Iv midline site intact and asymptomatic. No acute distress noted. Bed locked in lowest position, call light within reach. Will continue plan of care.
--- NOTE | 2019-05-12 07:44 | NUR ---
HAND-OFF: Report given to JAN Collado. Pt is awake and resting in bed. Endorsed plan of care.
[2019-05-12 08:00] VITALS: BP 135/85
[2019-05-12] MEDS: Carvedilol 6.25mg Tab ORAL SCH (09:23)
[2019-05-12] MEDS: Losartan 50mg tab ORAL SCH (09:23)
[2019-05-12] MEDS: Sucralfate 1gm tab ORAL SCH (09:24)
[2019-05-12] MEDS: Digoxin 0.125mg tab ORAL SCH (09:24)
[2019-05-12] MEDS: Furosemide 40mg tab ORAL SCH (09:24)
[2019-05-12] MEDS: Heparin 5000 units/ml inj SUBQ SCH (09:34)
--- NOTE | 2019-05-12 09:43 | NUR ---
DISCHARGE PLANNING PATIENT HAS REPEATEDLY REFUSED TO GO TO ANYWHERE ELSE EXCEPT HOME PLAN IS TO DISCHARGE HOME TODAY SON WILL PROVIDE TRANSPORTATION HOME PATIENT HAS BEEN REFERRED TO [facility]
--- NOTE | 2019-05-12 10:38 | NUR ---
NURSE NOTES: Full body sponge bath given and sacral healing stage 2 wound and bilateral heels stage 2 wounds' dressing changed.
--- NOTE | 2019-05-12 10:41 | Surgery Progress Note ---
Surgery Progress Note Subjective Additional Comments no acute events comfortable stable labs improving t bili improved h/h stable Objective Last 24 Hour Vital Signs Date Time Temp Pulse Resp B/P (MAP) Pulse Ox O2 Delivery O2 Flow Rate FiO2 05/12/19 09:24 76 05/12/19 09:23 135/85 05/12/19 09:23 76 135/85 05/12/19 09:00 Room Air 05/12/19 08:00 99.4 76 18 135/85 (102) 93 05/12/19 07:43 77 05/12/19 04:00 81 05/12/19 04:00 97.9 81 18 122/70 (87) 95 05/12/19 00:00 82 05/12/19 00:00 98.4 82 18 129/84 (99) 98 05/11/19 21:05 76 124/87 05/11/19 21:00 Room Air 05/11/19 20:00 97.0 73 18 148/73 (98) 96 05/11/19 20:00 73 05/11/19 16:00 98.6 77 18 118/65 (82) 98 05/11/19 16:00 65 05/11/19 12:00 98.6 82 18 127/69 (88) 96 05/11/19 11:57 82 05/11/19 11:25 Room Air I&O Intake and Output 05/11/19 05/12/19 19:00 07:00 Intake Total 260 ml Balance 260 ml Intake Oral 260 ml # Voids 3 2 # Bowel Movements 1 Dressing: dry Wound: clean Cardiovascular: RSR Respiratory: clear Abdomen: soft, non-tender, present bowel sounds Extremities: no tenderness, no cyanosis Plan Problems: (1) Abdominal pain Assessment & Plan: 83 F with abdominal pain. no n/v. overall decompensated dehydrated will need IV fluids no IV access obtained at this time by multiple nurse attempts see note central line out. site clean PICC line in and clean / functional CT findings with Impression: Anasarca, with diffuse edema of the subcutaneous, mesenteric, abdominal fat, also demonstrated on the prior exam. There is also pleural and peritoneal fluid As mentioned above, bilateral pleural effusions. Increased on the right, similar to the prior exam on the left. Resultant basilar compressive atelectatic changes Cardiomegaly and pacemaker Questionable wall thickening of the distal descending colon. Possibly on the basis of generalized edema, colitis possible Bilateral renal cysts. pain resolving skin cream for dry skin no acute surgical intervention planned bowel regimen trend labs appreciate GI input. diet as tolerated thank you will follow with recs (2) Lactic acid acidosis Assessment & Plan: resolved (3) SOB (shortness of breath) Remi Lindquist May 12, 2019 10:41
[2019-05-12 12:00] VITALS: BP 130/72
--- NOTE | 2019-05-12 12:48 | NUR ---
NURSE NOTES: Called son for discharge
[2019-05-12] MEDS ORDERED: FLUCONAZOLE100 MG ORAL (13:02)
[2019-05-12] MEDS ORDERED: COREG6.25 MG ORAL (13:03)
--- NOTE | 2019-05-12 13:07 | NUR ---
NURSE NOTES: Son called back states he gets off work at 630 and will be here tonight before 2000hrs
--- NOTE | 2019-05-12 13:55 | NUR ---
NURSE NOTES:WOUND CARE FOLLOW-UP NOTES:Resolving pressure injury noted to sacrococcygeal area. Small partial thickness pressure injury. Base of wound moist -viable with pink epithelial borders (L)0.5cm x (W)0.4cm. Pt verbalized site is tender when minimally palpated.Periwound without erythema or induration. Rubor noted to bilat lower ext and both feet. Both heels are both heels are boggy but non-tender when minimally palpated. Re-educated pt on wound prevention. encouraged to frequently reposition while in bed and to off-load heels with pillow.Moisture Barrier paste applied to sacral area and covered with Optifoam drsg. Cavilon SKin Barrier applied to both heels. Tx.Plan: Apply Moisture Barrier Paste to sacrum. Cover with Optifoam drsg . Change every 3 days and prn. Apply Cavilon Skin Barrier to both heels. Off-load heels with pillow. Encourage pt to reposition as frequently as pt is able to tolerate.
--- NOTE | 2019-05-12 15:34 | GI Progress Note ---
Assessment/Plan Problems: (1) Cirrhosis ICD Codes: K74.60 - Unspecified cirrhosis of liver SNOMED: 78413137 (2) Abdominal pain ICD Codes: R10.9 - Unspecified abdominal pain SNOMED: 11027357 (3) GI bleed ICD Codes: K92.2 - Gastrointestinal hemorrhage, unspecified SNOMED: 57165046 (4) Dyspepsia ICD Codes: K30 - Dyspepsia SNOMED: 491015161 (5) Anemia ICD Codes: D64.9 - Anemia, unspecified SNOMED: 251720818 Status: unchanged Status Narrative Discussed with Dr. Engel. Assessment/Plan Assessment - abdominal pain - resolved - cirrhosis - refused lactulose and off of Xifaxan due to a rash - CM/CHF/ICD - coagulopathy - Anasarca - Poor Px Recommendations - Monitor mental status. Watch for encephalopathy. - lactulose if agrees - check AFP--> normal - check HBV, HCV --> negative - po diet as tolerated - cardiology f/u - dc planning The patient was seen and examined at bedside and all new and available data was reviewed in the patients chart. I agree with the above findings, impression and plan. (Patient seen earlier today. Signature stamp does not reflect patient encounter time.). - Jorge Alberto Engel MD Subjective Gastrointestinal/Abdominal: Reports: no symptoms Subjective limited Objective Last 24 Hour Vital Signs Date Time Temp Pulse Resp B/P (MAP) Pulse Ox O2 Delivery O2 Flow Rate FiO2 05/12/19 12:00 73 05/12/19 12:00 98.1 85 18 130/72 (91) 99 05/12/19 09:24 76 05/12/19 09:23 135/85 05/12/19 09:23 76 135/85 05/12/19 09:00 Room Air 05/12/19 08:00 99.4 76 18 135/85 (102) 93 05/12/19 07:43 77 05/12/19 04:00 81 05/12/19 04:00 97.9 81 18 122/70 (87) 95 05/12/19 00:00 82 05/12/19 00:00 98.4 82 18 129/84 (99) 98 05/11/19 21:05 76 124/87 05/11/19 21:00 Room Air 05/11/19 20:00 97.0 73 18 148/73 (98) 96 05/11/19 20:00 73 05/11/19 16:00 98.6 77 18 118/65 (82) 98 05/11/19 16:00 65 Intake and Output 05/11/19 05/12/19 19:00 07:00 Intake Total 260 ml Balance 260 ml Intake Oral 260 ml # Voids 3 2 # Bowel Movements 1 Height (Feet): 5 Height (Inches): 4.00 Weight (Pounds): 132 General Appearance: WD/WN, no apparent distress, alert Cardiovascular: normal rate Respiratory/Chest: normal breath sounds, no respiratory distress Abdominal Exam: normal bowel sounds, non tender, soft Extremities: normal range of motion, non-tender Leilani Shah NP May 12, 2019 15:34
[2019-05-12 16:00] VITALS: BP 148/75
--- NOTE | 2019-05-12 20:01 | NUR ---
HAND-OFF: Report given to Romero MONTOYA. Pt remains stable..
--- NOTE | 2019-05-12 20:58 | NUR ---
Patient is being discharged from medical care. Awake, alert and oriented x3. After care instructions, including referral to community resources were given. Patient verbalized understanding of After care instructions; at this time patient does not request medications, equipment or placement. Patient signed patient consent in the medical record for patient destination upon discharge. All medical devices such as cardiac cath lab manager, PICC line, and ID band were removed. Patient accompanied by her son and I via wheelchair out with all personal belongings.
--- NOTE | 2019-05-13 01:45 | Progress Note ---
DATE: 05/12/2019 CARDIOLOGY PROGRESS NOTE SUBJECTIVE: This patient feels very weak, but has no chest pain or shortness of breath. Her legs swell when she has been dangled for a long time. OBJECTIVE: VITAL SIGNS: Blood pressure 130/72, pulse 85, respirations 18. LUNGS: Clear. CARDIAC: Irregularly irregular. Normal S1. Paradoxically split S2. A 1/6 systolic apical murmur. ABDOMEN: Soft. EXTREMITIES: With trace edema, right greater than left. IMPRESSION: 1. Acute on chronic systolic congestive heart failure. 2. Paroxysmal atrial fibrillation. 3. Nonsustained ventricular tachycardia. 4. Chronic kidney disease. 5. Type 2 diabetes mellitus. 6. Tvroxiru-wi-klvgyz protein-calorie malnutrition. 7. Cardiogenic shock, recovered. 8. History of gastric cancer. 9. Fungal cystitis. PLAN: 1. Outpatient followup arranged. 2. Discharge medication list reviewed in detail with the patient. 3. Oral fluconazole additional 5-day course. 4. No indwelling catheter. 5. Status post central line removal. Miguel Mason M.D. DR: CHRISTIAN JOB#: [id number] CC:
--- NOTE | 2019-05-16 07:55 | Discharge Summary ---
Discharge Summary Discharge Summary _ DATE OF ADMISSION: 04/23/2019 DATE OF DISCHARGE: DISCHARGED BY: REASON FOR ADMISSION: 84 years old female with past medical history of congestive heart failure, atrial fibrillation, AICD, gastric cancer, status post resection, presented with abdominal pain and shortness of breath. According to patient about 1 to 2 weeks ago, she started to develop progressively worsening shortness of breath along with abdominal pain. No fever or chills. No melena. No bright red blood per rectum. Upon evaluation in emergency room patient was severely tachycardia with heart rate of 142. Troponin was mildly elevated- 0.087. Pro BNP about 30,000. EKG revealed supraventricular tachycardia. BUN 23, creatinine 1.5. Bicarb 17. Total bilirubin 5.5, direct bilirubin 1.5. ABG revealed severe metabolic acidosis. INR elevated 1.9. Chest x-ray revealed large left pleural effusion. Cardiomegaly. AICD. CT of the head revealed no acute intracranial bleeding, mass effect or edema. In ED patient received IV metoprolol , heart rate somewhat improved. Aspirin was given. Patient started on gentle fluid resuscitation and empiric antibiotics. Patient subsequently admitted to stepdown floor for further management. CONSULTANTS: director of guidance in public [employer] Dr. Mason internal medicine Dr. Frankel GI specialist [facility]. Stephen[facility]SE: Patient admitted to stepdown unit. Echocardiogram demonstrated ejection fraction of 10 to 15% with global left ventricular wall akinesia, except the septal wall which was dyskinetic, likely due to pacemaker induced effect. Mild left ventricular hypertrophy. Pleural effusion present. Mild to moderate mitral regurgitation. Right ventricular systolic pressure of 53 , consistent with a moderate pulmonary hypertension. E Business Project Manager closely followed. Patient started on diuresis with close monitoring of volumes and cardiorenal parameters. Defibrillator function was recently confirmed to be adequate. Patient prognosis remained poor , given severe left ventricular dysfunction. Hemodynamic status was closely monitor. Central line via right internal jugular vein was placed intially by surgeon under ultrasound guidance. Patient later was placed on low-dose dobutamine drip for inotropic support. Dobutamine drip continued until patient was euvolemic, then patient was weaned off dobutamine drip , and continued on IV diuretics. Guideline directed medical therapy for congestive heart failure with further diuresis and close monitoring of volumes and cardiorenal parameters continued. Patient noted to have persistent atrial fibrillation with controlled ventricular response. Patient was on beta-gem and digoxin. No anticoagulation given history of GI bleeding, anemia, and history of gastric cancer, as per director of guidance in public schools. Digoxin level was therapeutic . Patient was followed -up with pro BNP and chest x-ray. With diuresis, pro B[place] 6[address] [place] [address]. Follow-up chest x-ray revealed decrease in left pleural effusion over 5 days. Mild elevation of troponin was most likely secondary to demand ischemia due to ventricular tachycardia with heart rate of nearly 150 along with severe cardiomyopathy. No complaints of chest pain, no shortness of breath. Venous duplex bilateral lower extremity revealed no evidence of acute DVT. Supplemental oxygen was on board as needed to keep pulse oximetry above 92%. Handheld nebulizing treatment with bronchodilator provided. Diuretics were changed to oral from the IV and then titrated to maintenance dose. Outpatient follow-up was arranged. Urine culture revealed Christiana. Patient was on IV fluconazole and then changed to oral antifungal to complete the course at home. CT of the abdomen and pelvis demonstrated anasarca, with diffuse edema of the subcutaneous, mesenteric, abdominal fat, also demonstrated on the prior exam. Bilateral bilateral pleural effusion. Abdominal ultrasound revealed liver surface nodularity, suggestive of chronic liver disease. Gallbladder wall thickening, nonspecific Bilateral bilateral pleural effusion GI specialist followed. LFT at some point were elevated, but trended down to normal. Alpha-fetoprotein within normal limits. Hepatitis B surface antigen ,hepatitis C antibody was negative. Stable lipase and amylase. Ammonia level initially - 56. Patient declined lactulose and started on Xifaxan. GI specialist recommended to watch closely for encephalopathy. Mental status improved. Central line was discontinued subsequently, and PICC line was placed. Stool for occult blood was negative. Hemoglobin and hematocrit remained stable , at baseline. Renal parameters and electrolytes were closely monitored. Potassium and magnesium replaced, and remained stable prior to discharge. Total bilirubin from initial 5.4 down to 1.8 and direct bilirubin from 1.5 down to 0.8. Renal parameters were closely monitored. Creatinine from 1.5 down to 1.1 . Patient started on diet as tolerated. Antiemetic provided as needed . Patient was able to tolerate diet Nutritional supplements implemented in plan of care as per diet technician registered recommendation. PICC line was removed prior to discharge. Patient clinically stabilized and was ready for discharge home. FINAL DIAGNOSES: Acute on chronic systolic congestive heart failure Cardiogenic shock-resolved Congestive heart failure NYHA class IV Acute on chronic cardiomyopathy with biventricular defibrillator Paroxysmal atrial fibrillation with controlled ventricular response Severe nonischemic cardiomyopathy Nonsustained ventricular tachycardia Anemia of iron deficiency Lactic acidosis Dehydration Electrolyte imbalance: hypokalemia hypomagnesemia Cirrhosis Coagulopathy Anasarca History of gastric cancer Moderate to severe protein calorie malnutrition Fungal cystitis DISCHARGE MEDICATIONS: See Medication Reconciliation list. DISCHARGE INSTRUCTIONS: Patient was discharged home . Follow up with primary care provider in one week. I have been assigned to dictate discharge summary for this account. I was not involved in the patient's management. Yoko Lewis NP May 16, 2019 07:55
== END 2019-05-12 21:00 | disposition home or self-care (01) | DRG 291 ==
LOC: EMR 15:09 → 2W 15:11 → EDBD 15:11 → EDBEDREQ 15:29 → 2W 18:56 → 2E 04-29 06:14 → 2W 04-29 06:57 → 2E 04-30 20:53 → 2W 05-02 12:10 → 2E 05-07 21:10
PROC: 05HM33Z Insertion of Infusion Device into Right Internal Jugular Vein, Percutaneous Approach (ICD-10-PCS; principal; 2019-04-24)
PROC: B543ZZA Ultrasonography of Right Jugular Veins, Guidance (ICD-10-PCS; principal; 2019-04-24)
PROC: B51MZZA Fluoroscopy of Right Upper Extremity Veins, Guidance (ICD-10-PCS; 2019-05-02)
PROC: 05H733Z Insertion of Infusion Device into Right Axillary Vein, Percutaneous Approach (ICD-10-PCS; 2019-05-02)
DX: I13.0 Hypertensive heart and chronic kidney disease with heart failure and stage 1 through stage 4 chronic kidney disease, or unspecified chronic kidney disease (principal); I50.23 Acute on chronic systolic (congestive) heart failure; R57.0 Cardiogenic shock; E43 Unspecified severe protein-calorie malnutrition; I24.9 Acute ischemic heart disease, unspecified; E87.2 Acidosis; I47.1 Supraventricular tachycardia; I24.8 Other forms of acute ischemic heart disease; I48.92 Unspecified atrial flutter; B49 Unspecified mycosis; E86.0 Dehydration; N18.9 Chronic kidney disease, unspecified; I48.0 Paroxysmal atrial fibrillation; E78.5 Hyperlipidemia, unspecified; Z95.810 Presence of automatic (implantable) cardiac defibrillator; Z85.028 Personal history of other malignant neoplasm of stomach; K74.60 Unspecified cirrhosis of liver; E11.22 Type 2 diabetes mellitus with diabetic chronic kidney disease; N30.80 Other cystitis without hematuria; E83.42 Hypomagnesemia; E87.6 Hypokalemia; R33.9 Retention of urine, unspecified; D50.9 Iron deficiency anemia, unspecified
CPT/HCPCS: 36415; 36569; 36600; 70450; 71045; 74176; 76700; 76937; 80048; 80053; 80162; 80202; 81003; 82105; 82140; 82150; 82248; 82270; 82550; 82553; 82803; 83605; 83690; 83735; 83880; 84443; 84484; 85007; 85025; 85610; 85651; 85730; 86140; 86706; 86803; 87040; 87086; 93005; 93306; 93970; 96361; 96365; 96375; 99291; J8499

== ENCOUNTER 2019-12-14 17:39 | Inpatient (IN) | payer MEDICARE ==
[~2019-12-14] VITALS: Ht 162.6 cm; Wt 51.3 kg
[~2019-12-14 17:39] MED LIST changes: +COREG6.25 MG ORAL; +FLUCONAZOLE100 MG ORAL
[2019-12-14 19:30] VITALS: BP 121/59
--- NOTE | 2019-12-14 20:30 | NUR ---
NURSE NOTES: Greeted patient downstairs in the admitting waiting room. Patient was waiting with her son. Patient is a direct-admission from Dr. Frankel and Dr. Mason, was seen by the provider in the office earlier that morning. Escorted patient to the wheelchair and brought the patient upstairs to the telemetry unit. Patient arrived to the unit at 1930. Patient is alert, awake, and responsive. Breathing regular and unlabored on room air with saturations in the 90's. Patient currently denies discomfort at this time. Established IV access on RFA, 20G, patent, intact, and saline locked. Placed patient on threat monitoring analyst, currently showing A-Fib and V-pacing. Patient has a Left chest pacemaker. Reviewed belongings with the patient and signed with the patient. Belongings remained at bedside. Received orders from MD, orders noted and carried out. Oriented patient to the room, patient able to make needs known. Placed bed in lowest position, breaks engaged, and call light is within reach at all times. All other needs attended to, patient remains stable, will continues to monitor.
[2019-12-14] MEDS ORDERED: LORazepam 1mg tab ORAL PRN (22:00)
[2019-12-14] MEDS: Carvedilol 6.25mg Tab ORAL SCH (22:39)
[2019-12-15] VITALS: BP 134/77
--- NOTE | 2019-12-15 02:03 | NUR ---
NURSE NOTES: Received orders from Dr. Mason for placement of Alarcon-catheter for I&O's. Orders noted and carried out. Catheter placed per MD orders, patient tolerated well. Draining clear, yellow urine.
--- NOTE | 2019-12-15 02:30 | Consultation ---
DATE OF CONSULTATION: 12/14/2019 CARDIOLOGY CONSULTATION CONSULTING PHYSICIAN: Miguel Mason M.D. REQUESTING PHYSICIAN: Palomo Frankel M.D. REASON FOR CONSULTATION: Congestive heart failure. HISTORY OF PRESENT ILLNESS: This is an 84-year-old female with dilated nonischemic cardiomyopathy, severe systolic dysfunction, and cardiac defibrillator was seen in my office yesterday with rapid weight gain, leg swelling, and shortness of breath. She admitted to being partially compliant with diuretic dosing over the past weeks, but increased back to her b.i.d. dose several days ago when she noted the swelling, but did not improve. The dosing was increased. However, today symptoms prompted her to seek additional attention and hospitalization as she did not improve and was getting increasingly short of breath prompting her to call her son to come from the [facility] to take to help her. PAST MEDICAL HISTORY: 1. Cardiac defibrillator. 2. History of ventricular tachycardia and sudden cardiac . 3. Paroxysmal atrial fibrillation. 4. Type 2 diabetes mellitus. 5. Chronic kidney disease. 6. History of gastric cancer status post gas partial gastrectomy. 7. Hyperlipidemia. 8. Diabetic neuropathy. 9. Osteoarthritis. 10. Degenerative disk disease. 11. Diabetic gastroparesis. MEDICATIONS: Prior to admission, reviewed and reconciled. ALLERGIES: Codeine. FAMILY HISTORY: Noncontributory. SOCIAL HISTORY: Negative for smoking, alcohol, or substance abuse. REVIEW OF SYSTEMS: Most recent echocardiogram confirmed ejection fraction of about 25 to 30 percent. There is a history of both atrial and ventricular arrhythmias. As noted above, her defibrillator was recently interrogated and functioning appropriately. There is no history of abnormal blood clotting. She is not on anticoagulation due to history of recurring gastrointestinal bleeds and severe anemia. Her diabetes is now managed with diet and oral therapy. There is no history of seizure or stroke. The patient had an endoscopy about a year ago revealing no signs of recurrent carcinoma. PHYSICAL EXAMINATION: VITAL SIGNS: Blood pressure 121/59, pulse 62, respirations 18, and afebrile. Monitored rhythm paced. LUNGS: With bilateral rales. Jugular venous pressure elevated. BREASTS: Without masses. Defibrillator implant site is clean and dry. CARDIAC: Laterally displaced. Diffuse point of maximum impulse. Diminished S1, paradoxically split S2. A 2/6 holosystolic apical murmur. ABDOMEN: Soft. Slight ascites. No guarding or rebound. EXTREMITIES: With 3 to 4+ bilateral pitting edema. NEUROLOGIC: Nonfocal. LABORATORY DATA: Pending. IMPRESSION: 1. Acute on chronic systolic congestive heart failure. 2. Cardiogenic insufficiency. 3. Paroxysmal atrial and ventricular arrhythmias. 4. History of sudden cardiac . 5. Cardiac defibrillator. 6. Type 2 diabetes mellitus. 7. History of gastric cancer. 8. Chronic kidney disease. 9. Anemia with iron deficiency. 10. History of recurring gastrointestinal bleeding. PLAN: 1. Cardiac monitoring. 2. Intravenous diuretic therapy. 3. May need inotropic support. 4. Titrate anti-failure regimen. 5. Insulin coverage by sliding scale. Miguel Mason M.D. DR: HINA JOB#: [id number] CC:
[2019-12-15 04:00] VITALS: BP 123/62
[2019-12-15] MEDS: NovoLOG Insulin Flexpen SUBQ SCH ×4 (06:20→20:44)
[2019-12-15] MEDS ORDERED: NovoLOG Insulin Flexpen SUBQ SCH (06:30)
[2019-12-15 07:36] LABS: HEMATOCRIT 31.8 % (37.0-47.0); HEMOGLOBIN 10.3 G/DL (12.0-16.0); MEAN CORPUSCULAR VOLUME 101 FL (80-99); PLATELET COUNT 62 K/UL (150-450); RED BLOOD COUNT 3.15 M/UL (4.20-5.40); RED CELL DISTRIBUTION WIDTH 13.8 % (11.6-14.8); WHITE BLOOD COUNT 4.2 K/UL (4.8-10.8)
--- NOTE | 2019-12-15 07:38 | NUR ---
NURSE NOTES: Nurse report given by JAN Jackson. Patient's awake and laying in bed in supine position, eyes open spontaneously, no s/s of distress or SOB, denies chest pain. Bed low and locked, side rails x 3, bed alarm is armed, patient fall teaching was given. IV saline locked, patent and asymptomatic. Patient's on 2L nasal cannula. Bilateral legs edema noted. Will continue to monitor.
--- NOTE | 2019-12-15 07:38 | NUR ---
HAND-OFF: Report given to JAN Rosas. Plan of care endorsed. Patient remains stable.
[2019-12-15 08:00] VITALS: BP 126/66
[2019-12-15 08:06] LABS: ALANINE AMINOTRANSFERASE 12 U/L (12-78); ALBUMIN/GLOBULIN RATIO 0.6 (1.0-2.7); ALKALINE PHOSPHATASE 86 U/L (46-116); ANION GAP 7 mmol/L (5-15); ASPARTATE AMINO TRANSFERASE 21 U/L (15-37); BILIRUBIN,TOTAL 1.8 MG/DL (0.2-1.0); BLOOD UREA NITROGEN 12 mg/dL (7-18); CALCIUM 8.8 MG/DL (8.5-10.1); CARBON DIOXIDE 33 MMOL/L (21-32); CHLORIDE 105 MMOL/L (98-107); CREATININE 0.8 MG/DL (0.55-1.30); SODIUM 145 MMOL/L (136-145)
[2019-12-15] MEDS: Digoxin 0.125mg tab ORAL SCH (08:26)
[2019-12-15] MEDS: Losartan 50mg tab ORAL SCH (08:27)
[2019-12-15] MEDS: Docusate 100mg cap ORAL SCH ×2 (08:27→17:51)
[2019-12-15] MEDS: Spironolactone 25mg tab ORAL SCH (08:27)
[2019-12-15] MEDS: Carvedilol 6.25mg Tab ORAL SCH ×2 (08:27→20:47)
[2019-12-15 08:31] LABS: BILIRUBIN,DIRECT 0.5 MG/DL (0.0-0.3)
[2019-12-15] MEDS ORDERED: Docusate 100mg cap ORAL SCH (09:00)
[2019-12-15] MEDS ORDERED: Sucralfate 1gm tab ORAL SCH (09:00)
[2019-12-15] MEDS ORDERED: Heparin 5000 units/ml inj SUBQ SCH (09:00)
--- NOTE | 2019-12-15 11:10 | Diagnostic Imaging Report ---
Indication: Dyspnea Comparison: 05/07/2019 A single view chest radiograph was obtained. Findings: Exam is limited by rotation. There is a pacemaker in the left anterior chest wall. Cardiomegaly is present. Pulmonary vascularity is probably normal. There is some obscuring of the left hemidiaphragm which could be due to a small pleural effusion or pleural thickening. IMPRESSION: Small effusion versus pleural thickening at the left lung base. Cardiomegaly.
[2019-12-15 12:00] VITALS: BP 121/65
--- NOTE | 2019-12-15 12:36 | NUR ---
RADIOLOGY DEPT., CHEST X-RAY DONE.-P.DYE
--- NOTE | 2019-12-15 14:00 | History and Physical Report ---
DATE OF ADMISSION: 12/14/2019 CHIEF COMPLAINT: CHF exacerbation. HISTORY OF PRESENT ILLNESS: The patient is a pleasant female, well known to me. She has a history of gastric carcinoma status post resection, congestive heart failure, history of ventricular tachycardia. She has an AICD, diabetes, hyperlipidemia, diabetic neuropathy, and gastroparesis. She was admitted from a travel specialist's office with complaints of worsening shortness of breath. The patient at home has had worsening shortness of breath and lower extremity edema. She has been noncompliant with some oral diuretic treatment. She denies any dietary noncompliance, but because of worsening shortness of breath, she is now admitted for further evaluation and care. PAST MEDICAL HISTORY: As above. PAST SURGICAL HISTORY: As above. CURRENT MEDICATIONS: Reconciled and reviewed. ALLERGIES: Include codeine. FAMILY HISTORY: Noncontributory. SOCIAL HISTORY: Negative for tobacco, ethanol, or drugs. REVIEW OF SYSTEMS: GENERAL: No fever or chills. HEENT: No headaches or visual changes. CARDIOPULMONARY: Positive worsening shortness of breath, dyspnea on exertion, and lower extremity edema. Positive orthopnea and PND. GASTROINTESTINAL: No nausea or vomiting. GENITOURINARY: No urgency or frequency. MUSCULOSKELETAL: No joint pain or swelling. NEUROLOGIC: No history of seizures. PHYSICAL EXAMINATION: VITAL SIGNS: Temperature 97.8, pulse 66, respirations 18, blood pressure 123/62. GENERAL: The patient is well developed, no apparent distress. HEART: Regular rate and rhythm. LUNGS: Bibasilar rales. ABDOMEN: Soft, nontender, nondistended. EXTREMITIES: Without clubbing or cyanosis. There is 1+ pitting edema. LABORATORY DATA: Labs are pending. ASSESSMENT: This is a pleasant 84-year-old female with a history of congestive heart failure, AICD, hypertension, diabetes, history of gastric carcinoma admitted with complaints of worsening shortness of breath secondary to medication noncompliance. PLAN: 1. IV diuretic therapy. 2. Monitor electrolytes and replace electrolytes as needed. 3. Monitor blood sugars. 4. Cardiology evaluation has been obtained. 5. Continue DVT and stress ulcer prophylaxis. Palomo Frankel M.D. DR: VALENTINO JOB#: [id number] CC:
[2019-12-15 16:00] VITALS: BP 115/69
--- NOTE | 2019-12-15 16:09 | NUR ---
CASE MANAGEMENT:REVIEW 84 YR OLD FEMALE DIRECTLY ADMITTED CC: SENT BY PMD D/T RAPID WEIGHT GAIN, LEG SWELLING AND SOB SI: AC/CHR CHF 97.3 62 18 121/59 96% ON 2L/NC BNP+[id number] SI: COREG PO Q12 COZAAR PO QD DIGOXIN PO QD IV LASIX BID ALDACTONE PO QD : TO TELEMETRY DCP: FROM HOME
--- NOTE | 2019-12-15 16:43 | NUR ---
HAND-OFF: Report given to JAN Larson. Patient's stable, plan of care endorsed.
--- NOTE | 2019-12-15 16:45 | NUR ---
NURSE NOTES: Received patient from JAN Rosas. Patient is aox2-3 and lying awake in bed. Patient is on room air with no s/s of respiratory distress. Patient is showing A-fib V- paced on the monitor. Patient has a L Chest Pacemaker. Patient has a Alarcon Catheter draining yellow urine. Patient bilateral lower extremities are edematous. Patient has a RFA 20g flushing properly no s/s of redness or swelling at the IV site noted. Bed is in lowest position, alarmed and locked. Optimal HOB placement. Side rails x2, and call light is within reach. Will continue to monitor. Addendum: 12/15/19 at 1858 by Malissa Narvaez RN Patient is on 2L [place] and tolerating well.
--- NOTE | 2019-12-15 19:27 | NUR ---
HAND-OFF: Report given to JAN Pozo.
--- NOTE | 2019-12-15 19:50 | NUR ---
NURSE NOTES: Received pt from JAN Larson. pt awake, alert, and talkative. Bed in lowest position. Call light within reach. Will continue to monitor.
[2019-12-15 20:00] VITALS: BP 119/71
--- NOTE | 2019-12-15 23:45 | Progress Note ---
DATE: 12/15/2019 CARDIOLOGY PROGRESS NOTE SUBJECTIVE: The patient is slightly less short of breath. Swelling is slightly better. She received intravenous diuretic therapy. PHYSICAL EXAMINATION: VITAL SIGNS: Blood pressure 115/69, pulse 60, respiratory rate 18, and afebrile. Monitored rhythm, atrial fibrillation with pacing and frequent PVCs. LUNGS: Diminished breath sounds. Few rales. CARDIAC: Irregularly irregular rhythm. Normal S1, paradoxically split S2. A 1/6 systolic murmur at apex. ABDOMEN: Soft. EXTREMITIES: A 3+ dependent lower extremity edema. LABORATORY DATA: Magnesium 1.7. Potassium 3, BUN 12, creatinine 0.8 Pro-natriuretic peptide over 12,000. IMPRESSION: 1. Acute on chronic systolic congestive heart failure. 2. Cardiac defibrillator. 3. Paroxysmal atrial and ventricular arrhythmias. PLAN: 1. Replace potassium orally. 2. Replace magnesium intravenously. 3. Continue diuresis. 4. Titrate and maximize anti-failure therapy. Miguel Mason M.D. DR: Rose Mary JOB#: [id number] CC:
[2019-12-16] VITALS: BP 113/65
[2019-12-16 04:00] VITALS: BP 123/69
[2019-12-16] MEDS: NovoLOG Insulin Flexpen SUBQ SCH ×4 (06:26→21:00)
[2019-12-16 07:19] LABS: ANION GAP 9 mmol/L (5-15); BLOOD UREA NITROGEN 17 mg/dL (7-18); CARBON DIOXIDE 34 MMOL/L (21-32); CHLORIDE 103 MMOL/L (98-107); POTASSIUM 3.8 MMOL/L (3.5-5.1); SODIUM 146 MMOL/L (136-145)
--- NOTE | 2019-12-16 07:43 | NUR ---
HAND-OFF: Report given to JAN Sotelo. Pt stable.
--- NOTE | 2019-12-16 07:54 | NUR ---
NURSE NOTES: Received pt from VALENTE MONTOYA. Pt is awake and alert, pt has NC 2LMP. pt has intact iv access RFA 20G SL. Pt is on continues heart monitoring. all needs attended, bed is locked and is in the lowest position, call light within easy reach. will continue to monitor.
[2019-12-16 07:59] VITALS: BP 136/78
[2019-12-16] MEDS: Losartan 50mg tab ORAL SCH (08:54)
[2019-12-16] MEDS: Docusate 100mg cap ORAL SCH ×2 (08:55→17:03)
[2019-12-16] MEDS: Digoxin 0.125mg tab ORAL SCH (08:55)
[2019-12-16] MEDS: Spironolactone 25mg tab ORAL SCH (08:56)
[2019-12-16] MEDS: Carvedilol 6.25mg Tab ORAL SCH ×2 (08:56→21:17)
--- NOTE | 2019-12-16 10:01 | NUR ---
CASE MANAGEMENT:REVIEW 12/16/19 SI: AC/CHR CHF PAROXYSMAL ATRIAL & VENTRICULAR ARRHYTHMIAS 98.6 80 20 136/78 97% ON 2L/NC CO2+34 IS: K-DUR PO X3 THEN QD DIGOXIN PO QD COZAAR PO QD PROTONIX PO QD ALDACTONE PO QD IV LASIX BID COREG PO Q12 : TELEMETRY STATUS DCP: PATIENT IS FROM HOME
[2019-12-16 11:59] VITALS: BP 116/64
--- NOTE | 2019-12-16 15:09 | General Progress Note ---
Assessment/Plan Problem List: (1) Anemia ICD Codes: D64.9 - Anemia, unspecified SNOMED: 229165186 (2) SOB (shortness of breath) ICD Codes: R06.02 - Shortness of breath SNOMED: 830748092 (3) A-fib ICD Codes: I48.91 - Unspecified atrial fibrillation SNOMED: 61817601 (4) Gastric cancer ICD Codes: C16.9 - Malignant neoplasm of stomach, unspecified SNOMED: 978163648 (5) Chest pain (6) CHF exacerbation ICD Codes: I50.9 - Heart failure, unspecified SNOMED: 31842674 (7) Paroxysmal a-fib ICD Codes: I48.0 - Paroxysmal a-fib SNOMED: 711868643 Status: stable, progressing Assessment/Plan: diuresis monitor labs encourage po elevated legs pt/ot pain rx antiemetics bowel regime Subjective Constitutional: Reports: malaise, weakness HEENT: Reports: no symptoms Cardiovascular: Reports: no symptoms Respiratory: Reports: cough Gastrointestinal/Abdominal: Reports: abdominal pain, poor appetite Genitourinary: Reports: no symptoms Neurologic/Psychiatric: Reports: pre-existing deficit Endocrine: Reports: no symptoms Hematologic/Lymphatic: Reports: anemia Allergies: Coded Allergies: CODEINE (Verified Allergy, Unknown, 06/17/18) All Systems: reviewed and negative except above Subjective no events. w/o complaints,. mild chest pain and nausea. decreased sob. legs still with swelling. Objective Last 24 Hour Vital Signs Date Time Temp Pulse Resp B/P (MAP) Pulse Ox O2 Delivery O2 Flow Rate FiO2 12/16/19 11:59 96.7 82 19 116/64 (81) 98 12/16/19 11:41 79 12/16/19 09:00 Nasal Cannula 2.0 12/16/19 08:56 80 136/78 12/16/19 08:55 80 12/16/19 08:54 136/78 12/16/19 07:59 98.6 80 20 136/78 (97) 97 12/16/19 07:42 86 12/16/19 07:35 97 Nasal Cannula 2.0 28 12/16/19 04:00 97.4 81 17 123/69 (87) 96 12/16/19 04:00 74 12/16/19 00:00 80 12/16/19 00:00 97.7 84 18 113/65 (81) 95 12/15/19 23:55 2.0 12/15/19 21:00 Nasal Cannula 2.0 12/15/19 20:47 85 119/71 12/15/19 20:00 70 12/15/19 20:00 98.1 85 16 119/71 (87) 92 12/15/19 16:00 60 12/15/19 16:00 96.7 68 18 115/69 (84) 96 Intake and Output 12/15/19 12/16/19 19:00 07:00 Intake Total 420 ml Output Total 3100 ml 2000 ml Balance -2680 ml -2000 ml Intake Oral 420 ml Output Urine Total 3100 ml 2000 ml Laboratory Tests 12/16/19 05:20: Sodium Level 146H, Potassium Level 3.8, Chloride Level 103, Carbon Dioxide Level 34H, Anion Gap 9, Blood Urea Nitrogen 17, Creatinine 1.0, Estimat Glomerular Filtration Rate > 60, Glucose Level 137H, Calcium Level 9.0 Height (Feet): 5 Height (Inches): 4.00 Weight (Pounds): 113 General Appearance: WD/WN, alert Neck: supple Cardiovascular: normal rate, regularly irregular Respiratory/Chest: chest wall non-tender, lungs clear, normal breath sounds, no respiratory distress Abdomen: normal bowel sounds, non tender, soft, no organomegaly, no mass Edema: mild edema Neurologic: automobile locator II-XII grossly normal, no motor/sensory deficits, alert, oriented x 3 Palomo Frankel MD Dec 16, 2019 15:09
[2019-12-16 16:00] VITALS: BP 117/67
--- NOTE | 2019-12-16 19:19 | NUR ---
HAND-OFF: Report given to TARIQ MONTOYA. Pt is awake and stable.
--- NOTE | 2019-12-16 19:33 | NUR ---
NURSE NOTES: Received report from Deepak Camargo RN. Pt in stable condition, VS wnl. Will continue to monitor closely.
[2019-12-16 20:00] VITALS: BP 119/57
[2019-12-17] VITALS: BP 126/69
--- NOTE | 2019-12-17 00:45 | Progress Note ---
DATE: 12/16/2019 CARDIOLOGY PROGRESS NOTE SUBJECTIVE: The patient has less shortness of breath . Her appetite has improved. She still has abdominal distention. OBJECTIVE: VITAL SIGNS: Blood pressure 119/57, pulse 76, respiratory rate 16, and afebrile. Monitored rhythm, atrial fibrillation with ventricular ectopy and ventricular pacing. LUNGS: Diminished breath sounds. Few rales. CARDIAC: Irregularly irregular rhythm. Normal S1, paradoxically split S2. A 1/6 systolic murmur apex. ABDOMEN: Soft. EXTREMITIES: With 2+ dependent edema. LABORATORY DATA: Sodium 146, potassium 3.8, bicarb 34, BUN 17, and creatinine 1. Fluid balance over the past 2 days as estimated at almost 6 liters negative. IMPRESSION: Improved. PLAN: 1. Decrease diuretic dosing. 2. Other therapy without change. 3. Recheck laboratories and electrolytes. 4. Trend natriuretic peptide essay. 5. Replace potassium and magnesium as needed. Miguel Maosn M.D. DR: MER JOB#: [id number] CC:
[2019-12-17 04:00] VITALS: BP 126/72
[2019-12-17] MEDS: NovoLOG Insulin Flexpen SUBQ SCH ×4 (06:24→21:00)
--- NOTE | 2019-12-17 07:24 | NUR ---
HAND-OFF: Report given to Lori Jain RN. Pt in stable condition.
[2019-12-17 07:40] LABS: ANION GAP 4 mmol/L (5-15); BLOOD UREA NITROGEN 20 mg/dL (7-18); CALCIUM 9.2 MG/DL (8.5-10.1); CARBON DIOXIDE 39 MMOL/L (21-32); CHLORIDE 101 MMOL/L (98-107); CREATININE 0.9 MG/DL (0.55-1.30); POTASSIUM 3.7 MMOL/L (3.5-5.1); SODIUM 143 MMOL/L (136-145)
[2019-12-17 08:00] VITALS: BP 137/87
--- NOTE | 2019-12-17 08:00 | General Progress Note ---
Assessment/Plan Problem List: (1) Anemia ICD Codes: D64.9 - Anemia, unspecified SNOMED: 856144159 (2) SOB (shortness of breath) ICD Codes: R06.02 - Shortness of breath SNOMED: 797273308 (3) A-fib ICD Codes: I48.91 - Unspecified atrial fibrillation SNOMED: 07988902 (4) Gastric cancer ICD Codes: C16.9 - Malignant neoplasm of stomach, unspecified SNOMED: 971496986 (5) Chest pain (6) CHF exacerbation ICD Codes: I50.9 - Heart failure, unspecified SNOMED: 35268311 (7) Paroxysmal a-fib ICD Codes: I48.0 - Paroxysmal a-fib SNOMED: 527338201 Status: stable, progressing Assessment/Plan: diuresis monitor labs encourage po elevated legs pt/ot pain rx antiemetics bowel regime added cough rx cxr corticosporin ear drops Subjective ROS Limited/Unobtainable: No Constitutional: Reports: malaise, weakness HEENT: Reports: no symptoms Cardiovascular: Reports: no symptoms Respiratory: Reports: cough, sputum Gastrointestinal/Abdominal: Reports: abdominal pain Genitourinary: Reports: no symptoms Neurologic/Psychiatric: Reports: no symptoms Endocrine: Reports: no symptoms Hematologic/Lymphatic: Reports: anemia Allergies: Coded Allergies: CODEINE (Verified Allergy, Unknown, 06/17/18) All Systems: reviewed and negative except above Subjective c/o cough and congestion. no fevers. still with sob. leg edema. improving. on lasix. eating breakfast. feels like she is getting better. Objective Last 24 Hour Vital Signs Date Time Temp Pulse Resp B/P (MAP) Pulse Ox O2 Delivery O2 Flow Rate FiO2 12/17/19 04:00 2.0 12/17/19 04:00 98.0 76 16 126/72 (90) 95 12/17/19 04:00 72 12/17/19 00:00 97.8 81 16 126/69 (88) 95 12/17/19 00:00 71 12/17/19 00:00 2.0 12/16/19 21:17 95 119/57 12/16/19 21:00 Room Air 12/16/19 20:00 81 12/16/19 20:00 98.2 76 16 119/57 (77) 95 12/16/19 16:09 80 12/16/19 16:00 96.6 79 20 117/67 (84) 97 12/16/19 11:59 96.7 82 19 116/64 (81) 98 12/16/19 11:41 79 12/16/19 09:00 Nasal Cannula 2.0 12/16/19 08:56 80 136/78 12/16/19 08:55 80 12/16/19 08:54 136/78 12/16/19 07:59 98.6 80 20 136/78 (97) 97 Intake and Output 12/16/19 12/17/19 19:00 07:00 Intake Total 140 ml Output Total 650 ml Balance -510 ml Intake Oral 140 ml Output Urine Total 650 ml Laboratory Tests 12/17/19 06:20: Sodium Level 143, Potassium Level 3.7, Chloride Level 101, Carbon Dioxide Level 39H, Anion Gap 4L, Blood Urea Nitrogen 20H, Creatinine 0.9, Estimat Glomerular Filtration Rate > 60, Glucose Level 132H, Calcium Level 9.2, Magnesium Level 2.1 , Pro-B-Type Natriuretic Peptide 9098H Height (Feet): 5 Height (Inches): 4.00 Weight (Pounds): 113 Objective General Appearance: WD/WN, alert Neck: supple Cardiovascular: normal rate, regularly irregular Respiratory/Chest: chest wall non-tender, lungs clear, normal breath sounds, no respiratory distress Abdomen: normal bowel sounds, non tender, soft, no organomegaly, no mass Edema: mild edema 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
[2019-12-17] MEDS: Carvedilol 6.25mg Tab ORAL SCH ×2 (08:54→21:23)
[2019-12-17] MEDS: Losartan 50mg tab ORAL SCH (08:55)
[2019-12-17] MEDS: Spironolactone 25mg tab ORAL SCH (08:56)
[2019-12-17] MEDS: Digoxin 0.125mg tab ORAL SCH (08:56)
[2019-12-17] MEDS: Docusate 100mg cap ORAL SCH ×2 (08:56→17:16)
--- NOTE | 2019-12-17 10:08 | NUR ---
NURSE NOTES: Patient stable AOx4. Mild respiratory distress noted. Patient placed on 2L NC and sat up in chair. RR now even and unlabored with no distress noted. Alarcon draining well to gravity. Edema noted to BLE. Side rails up x2, call light within reach, bed low and locked.
--- NOTE | 2019-12-17 10:40 | Diagnostic Imaging Report ---
EXAM: XR Chest, 1 View CLINICAL HISTORY: COUGH TECHNIQUE: Frontal view of the chest. COMPARISON: Chest x-ray 12/15/19 FINDINGS: Lungs: Hypoventilatory lungs. Stable bibasilar lung atelectasis/airspace disease. Vascularity within normal limits. Pleural space: Small bilateral pleural effusions, slightly improved. No pneumothorax. Heart: Cardiomegaly. Mediastinum: Unremarkable. Bones/joints: Unremarkable. Tubes, lines and devices: Cardiac pacemaker. IMPRESSION: 1. Small bilateral pleural effusions, slightly improved. 2. Stable bibasilar lung atelectasis/airspace disease. Vascularity within normal limits.
[2019-12-17] MEDS: Guaifenesin/DM 10ml syrup ORAL PRN (11:48)
[2019-12-17 12:00] VITALS: BP 100/60
[2019-12-17 16:00] VITALS: BP 107/70
[2019-12-17] MEDS: Cortisporin OTIC Susp 10ml BOTH EARS SCH (17:16)
--- NOTE | 2019-12-17 19:12 | NUR ---
HAND-OFF: Report given to Leonard. Patient stable. Plan of care endorsed.
--- NOTE | 2019-12-17 19:35 | NUR ---
NURSE NOTES: Received report from Lori Jain RN. Pt in stable condition, VS wnl. Will continue to monitor closely.
[2019-12-17 20:00] VITALS: BP 121/65
--- NOTE | 2019-12-17 22:20 | NUR ---
NURSE NOTES: Alarcon catheter removed per MD order. No complications, tolerated well, pt denies any pain or discomfort at this time. Will continue to monitor closely.
--- NOTE | 2019-12-17 23:00 | Progress Note ---
DATE: 12/17/2019 CARDIOLOGY PROGRESS NOTE SUBJECTIVE: The patient is very fatigued today. She has cough and congestion. Leg swelling continues to improve. PHYSICAL EXAMINATION: VITAL SIGNS: Blood pressure 126/72, pulse 76, respiratory rate 16. Monitored atrial fibrillation. Ventricular pacing. Occasional PVCs. LUNGS: Decreased edema. Diminished breath sounds. Few rales. CARDIAC: Irregularly irregular rhythm. Normal S1, S2. A 1/6 systolic apical murmur. LABORATORY AND DIAGNOSTIC DATA: Pro-natriuretic peptide decreased to 9000. Potassium 3.7, BUN 20, creatinine 0.9. Chest radiograph, small bilateral effusions have improved. Stable atelectasis and airspace disease. IMPRESSION: Improving. PLAN: Transition to oral therapy over the next 24 to 48 hours. Miguel Mason M.D. DR: MACY JOB#: [id number] CC:
[2019-12-18] VITALS: BP 115/59
[2019-12-18 03:31] LABS: APPEARANCE,URINE CLEAR; BILIRUBIN, URINE NEGATIVE (NEGATIVE); GLUCOSE, URINE (UA) NEGATIVE (NEGATIVE); KETONES,URINE NEGATIVE (NEGATIVE); LEUKOCYTE ESTERASE ,URINE NEGATIVE (NEGATIVE); NITRITE,URINE NEGATIVE (NEGATIVE); PH,URINE 7 (4.5-8.0); PROTEIN,URINE NEGATIVE (NEGATIVE); UROBILINOGEN,URINE NORMAL MG/DL (0.0-1.0)
[2019-12-18 03:36] LABS: COLOR,URINE COLORLESS
[2019-12-18 03:47] VITALS: BP 109/57
[2019-12-18] MEDS: NovoLOG Insulin Flexpen SUBQ SCH ×4 (05:40→21:00)
--- NOTE | 2019-12-18 07:28 | NUR ---
HAND-OFF: Report given to Yusuf Olivo RN. Pt is stable condition.
[2019-12-18 07:38] LABS: ANION GAP 3 mmol/L (5-15); BLOOD UREA NITROGEN 19 mg/dL (7-18); CALCIUM 9.5 MG/DL (8.5-10.1); CARBON DIOXIDE 39 MMOL/L (21-32); CHLORIDE 98 MMOL/L (98-107); POTASSIUM 4.4 MMOL/L (3.5-5.1); SODIUM 140 MMOL/L (136-145)
[2019-12-18 08:00] VITALS: BP 118/76
--- NOTE | 2019-12-18 08:06 | NUR ---
NURSE NOTES: Pt in bed in low position, pt has bathroom privileges with commode at bedside, pt ambulates with can and no assistance need, pt has breakfast at bedside, Labs this morning WNL, call light at bedside, HOB in semi-fowlers, IV intact, pt with pacemaker with underline afib, pt denies pain, pt reports displays no s/s of distress or sob note. will continue to monitor fluids
[2019-12-18] MEDS: Docusate 100mg cap ORAL SCH ×2 (09:35→18:00)
[2019-12-18] MEDS: Losartan 50mg tab ORAL SCH (09:35)
[2019-12-18] MEDS: Carvedilol 6.25mg Tab ORAL SCH ×2 (09:36→21:00)
[2019-12-18] MEDS: Digoxin 0.125mg tab ORAL SCH (09:36)
[2019-12-18] MEDS: Cortisporin OTIC Susp 10ml BOTH EARS SCH ×3 (09:36→18:00)
[2019-12-18] MEDS: Spironolactone 25mg tab ORAL SCH (09:37)
--- NOTE | 2019-12-18 10:32 | General Progress Note ---
Assessment/Plan Problem List: (1) Anemia ICD Codes: D64.9 - Anemia, unspecified SNOMED: 941112194 (2) SOB (shortness of breath) ICD Codes: R06.02 - Shortness of breath SNOMED: 988319836 (3) A-fib ICD Codes: I48.91 - Unspecified atrial fibrillation SNOMED: 65957804 (4) Gastric cancer ICD Codes: C16.9 - Malignant neoplasm of stomach, unspecified SNOMED: 368726769 (5) Chest pain (6) CHF exacerbation ICD Codes: I50.9 - Heart failure, unspecified SNOMED: 68281937 (7) Paroxysmal a-fib ICD Codes: I48.0 - Paroxysmal a-fib SNOMED: 723725825 Status: stable, progressing Assessment/Plan: diuresis monitor labs encourage po elevated legs pt/ot pain rx antiemetics bowel regime [place] check lipase Subjective ROS Limited/Unobtainable: No Constitutional: Reports: malaise, weakness HEENT: Reports: no symptoms Cardiovascular: Reports: no symptoms Respiratory: Reports: cough Gastrointestinal/Abdominal: Reports: abdominal pain Genitourinary: Reports: no symptoms Neurologic/Psychiatric: Reports: anxiety, depressed Endocrine: Reports: no symptoms Hematologic/Lymphatic: Reports: no symptoms Allergies: Coded Allergies: CODEINE (Verified Allergy, Unknown, 06/17/18) All Systems: reviewed and negative except above Subjective no events. less sob. c/o vague abd pain. no constipation or diarrhea. no fever or chills. Objective Last 24 Hour Vital Signs Date Time Temp Pulse Resp B/P (MAP) Pulse Ox O2 Delivery O2 Flow Rate FiO2 12/18/19 09:36 82 12/18/19 09:36 82 118/76 12/18/19 09:35 118/76 12/18/19 08:25 Nasal Cannula 2.0 12/18/19 08:23 2.0 12/18/19 08:00 96.7 82 20 118/76 (90) 97 12/18/19 04:00 2.0 12/18/19 04:00 84 12/18/19 03:47 98.3 65 16 109/57 (74) 97 12/18/19 00:00 72 12/18/19 00:00 2.0 12/18/19 00:00 98.9 62 16 115/59 (77) 98 3/7/20 21:23 88 121/65 12/17/19 21:00 Nasal Cannula 2.0 12/17/19 20:00 97.2 88 20 121/65 (83) 95 12/17/19 20:00 84 12/17/19 20:00 2.0 12/17/19 16:00 98.2 80 19 107/70 (82) 99 12/17/19 16:00 2.0 12/17/19 16:00 81 12/17/19 12:00 99.0 83 19 100/60 (73) 99 12/17/19 12:00 2.0 12/17/19 12:00 83 Intake and Output 12/17/19 12/18/19 19:00 07:00 Intake Total 720 ml 160 ml Output Total 1400 ml Balance -680 ml 160 ml Intake Oral 720 ml 160 ml Output Urine Total 1400 ml Laboratory Tests 12/17/19 23:02: Urine Color Colorless, Urine Appearance Clear, Urine pH 7, Urine Specific [place] 1.005, Urine Protein Negative, Urine Glucose (UA) Negative, Urine Ketones Negative, Urine Blood 3+H, Urine Nitrite Negative, Urine Bilirubin Negative, Urine Urobilinogen Normal, Urine Leukocyte Esterase Negative, Urine RBC 2-4H, Urine WBC 0-2, Urine Squamous Epithelial Cells Occasional, Urine Amorphous Sediment FewH, Urine Bacteria ManyH 12/18/19 06:00: Sodium Level 140, Potassium Level 4.4, Chloride Level 98, Carbon Dioxide Level 39H, Anion Gap 3L, Blood Urea Nitrogen 19H, Creatinine 1.0, Estimat Glomerular Filtration Rate > 60, Glucose Level 128H, Calcium Level 9.5, Magnesium Level 2.0 Height (Feet): 5 Height (Inches): 4.00 Weight (Pounds): 113 Objective General Appearance: WD/WN, alert Neck: supple Cardiovascular: normal rate, regularly irregular Respiratory/Chest: chest wall non-tender, lungs clear, normal breath sounds, no respiratory distress Abdomen: normal bowel sounds, non tender, soft, no organomegaly, no mass Edema: mild edema 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
[2019-12-18 12:00] VITALS: BP 102/52
--- NOTE | 2019-12-18 13:00 | NUR ---
NURSE NOTES: pt refused ear drop she said "maybe later not right now"
[2019-12-18 16:00] VITALS: BP 114/74
--- NOTE | 2019-12-18 19:30 | NUR ---
NURSE NOTES: Received report from JAN Ford. Patient is in bed, awake, alert, and responsive. Breathing regular and unlabored with no s/s of noted at this time. Patient remains on a 2L NC. IV acces is patent, flushing and saline locked. Advised patient to not bend at wrist as much as possible to keep IV in place, patient refuses to listen. Patient denies any pain or discomfort at this time. Bed remains in lowest position, breaks engaged, and call light within reach at all times. All other needs attended to, patient remains stable, will continue to monitor.
[2019-12-18 20:00] VITALS: BP 123/85
--- NOTE | 2019-12-18 21:02 | NUR ---
NURSE NOTES: Patient had a tray at bedside, asked if patient wanted her food, patient stated "No, i don't want that, it doesn't look good." Patient asked if she can have a sandwich. Went to supervisors office and brought patient a sandwich. Patient stated "That's too cold, i need it warm." Told the patient that will warm it in a few minutes and patient stated "I haven't ate all day, i want food." Advised patient that the tray and a sandwich were offered. Patient still doesn't like the food offered here.
--- NOTE | 2019-12-18 21:46 | NUR ---
NURSE NOTES: Upon an attempt to administer patient's scheduled night time medications, patient refused. Patient stated "I don't take this at home, I'm not gonna take this here." Informed patient about the risks and benefits of the medications, patient still refused.
[2019-12-18] MEDS: Guaifenesin/DM 10ml syrup ORAL PRN (22:36)
[2019-12-19] VITALS: BP 117/74
--- NOTE | 2019-12-19 03:45 | Progress Note ---
DATE: 12/18/2019 CARDIOLOGY PROGRESS NOTE SUBJECTIVE: No new distress. Less congestion. However, some nasal discharge. Minimal shortness of breath. Leg swelling has resolved. PHYSICAL EXAMINATION: VITAL SIGNS: Blood pressure 123/85, pulse 81, respiratory rate 19, and afebrile. LUNGS: Clear breath sounds. CARDIAC: Regular rhythm and rate. Diminished S1. Normal S2. A 1/6 systolic murmur at apex. ABDOMEN: Soft. EXTREMITIES: No edema. LABORATORY AND DIAGNOSTIC DATA: Monitor reveals atrial fibrillation, occasional PVC, and ventricular pacing. Sodium 140, potassium 4.4, BUN 19, creatinine 1, bicarbonate 39, and magnesium 2. IMPRESSION: 1. Possible upper respiratory infection. 2. Acute on chronic systolic congestive heart failure, mostly compensated. 3. Contraction alkalosis. 4. Cardiac defibrillator. 5. Nonischemic cardiomyopathy. PLAN: 1. Transition to oral diuretics. 2. Respiratory hygiene. 3. Mobilize. 4. Reassess for discharge. Miguel Msaon M.D. DR: Alvino JOB#: [id number] CC:
[2019-12-19 04:00] VITALS: BP 127/83
[2019-12-19] MEDS: NovoLOG Insulin Flexpen SUBQ SCH ×5 (06:30→21:00)
--- NOTE | 2019-12-19 07:33 | NUR ---
HAND-OFF: Report given to JAN Mar. Plan of care endorsed, patient remains in stable condition.
[2019-12-19 08:00] VITALS: BP 131/79
--- NOTE | 2019-12-19 08:13 | NUR ---
NURSE NOTES: Received report from JAN Jackson. Patient in bed resting, no active s/s cardiac, respiratory distress noticed at this time. Patient AOx4, V-paced with HR 83. Patient on 2L oxygen via NC, IV on left Wrist 22G, asymptomatic, patent, intact. Bed in lowest position, side rails upx3, call light within reach. Will continue to monitor.
[2019-12-19 08:47] LABS: ALANINE AMINOTRANSFERASE 16 U/L (12-78); ALBUMIN/GLOBULIN RATIO 0.5 (1.0-2.7); ALKALINE PHOSPHATASE 88 U/L (46-116); ANION GAP 9 mmol/L (5-15); ASPARTATE AMINO TRANSFERASE 19 U/L (15-37); BILIRUBIN,TOTAL 2.8 MG/DL (0.2-1.0); BLOOD UREA NITROGEN 21 mg/dL (7-18); CALCIUM 9.7 MG/DL (8.5-10.1); CARBON DIOXIDE 32 MMOL/L (21-32); CHLORIDE 101 MMOL/L (98-107); CREATININE 0.9 MG/DL (0.55-1.30); SODIUM 142 MMOL/L (136-145)
[2019-12-19 08:50] LABS: BILIRUBIN,DIRECT 0.8 MG/DL (0.0-0.3)
[2019-12-19] MEDS: Docusate 100mg cap ORAL SCH ×2 (09:00→17:31)
[2019-12-19] MEDS: Losartan 50mg tab ORAL SCH (09:00)
[2019-12-19] MEDS: Spironolactone 25mg tab ORAL SCH (09:48)
[2019-12-19] MEDS: Carvedilol 6.25mg Tab ORAL SCH ×2 (09:48→21:43)
[2019-12-19] MEDS: Digoxin 0.125mg tab ORAL SCH (09:48)
[2019-12-19] MEDS: Furosemide 40mg tab ORAL SCH ×2 (09:49→17:31)
[2019-12-19] MEDS: Cortisporin OTIC Susp 10ml BOTH EARS SCH ×3 (09:49→17:29)
--- NOTE | 2019-12-19 09:50 | NUR ---
CASE MANAGEMENT:REVIEW 12/19/19 SI: AC/CHR CHF PAROXYSMAL ATRIAL & VENTRICULAR ARRHYTHMIAS 98.2 78 17 131/79 100% ON 2L/NC BUN+21 GLUCOSE+125 IS: K-DUR PO QD LASIX PO BID DIGOXIN PO QD COZAAR PO QD PROTONIX PO QD ALDACTONE PO QD : TELEMETRY STATUS DCP: PATIENT IS FROM HOME PLAN: PT EVAL DISCHARGE PLANNING
--- NOTE | 2019-12-19 10:18 | NUR ---
PT NOTE Received MD order for PT evaluation, medical record reviewed and patient interviewed. Patient declined to participate with PT evaluation, states not feeling up to it, requesting that therapist return tomorrow. Zaid MONTOYA notified, will follow up tomorrow.
[2019-12-19 12:00] VITALS: BP 100/70
--- NOTE | 2019-12-19 12:04 | NUR ---
RD ASSESSMENT & RECOMMENDATIONS SEE CARE ACTIVITY FOR COMPLETE ASSESSMENT DAILY ESTIMATED NEEDS: Needs based on CHF 51kg 25-30 kcals/kg 9281-8872 total kcals 1-1.5 g protein/kg 51-76 g total protein 20-25 mL/kg 1564-3629 total fluid mLs NUTRITION DIAGNOSIS: Altered nutrition related lab values R/T h/o CHF and DM as evidenced by elev BNP (9098), FBS >100, on NISS. CURRENT DIET:CARDIAC PO DIET RECOMMENDATIONS: LOW NA, small frequent meals ADDITIONAL RECOMMENDATIONS: * RECALIBRATE DAILY BEDSCALE WT bedscale wt of 40kg vs EMR wt of 51kg * Monitor BGs, need for carb controlled diet: h/o DM * A1C for eval of glycemic control- h/o DM * Rec small frequent meals given h/o partial gastrectomy Monitor PO tolerance and acceptance * Glucerna 1 tetra paul BID w/ meals
--- NOTE | 2019-12-19 12:50 | General Progress Note ---
Assessment/Plan Problem List: (1) Anemia ICD Codes: D64.9 - Anemia, unspecified SNOMED: 330508164 (2) SOB (shortness of breath) ICD Codes: R06.02 - Shortness of breath SNOMED: 028087764 (3) A-fib ICD Codes: I48.91 - Unspecified atrial fibrillation SNOMED: 69233393 (4) Gastric cancer ICD Codes: C16.9 - Malignant neoplasm of stomach, unspecified SNOMED: 573089373 (5) Chest pain (6) CHF exacerbation ICD Codes: I50.9 - Heart failure, unspecified SNOMED: 78792322 (7) Paroxysmal a-fib ICD Codes: I48.0 - Paroxysmal a-fib SNOMED: 646916609 Status: stable, progressing Assessment/Plan: diuresis per monitor labs encourage po elevated legs pt/ot pain rx antiemetics bowel regime [place] dc planning Subjective ROS Limited/Unobtainable: No Constitutional: Reports: malaise, weakness HEENT: Reports: no symptoms Cardiovascular: Reports: no symptoms Respiratory: Reports: shortness of breath Gastrointestinal/Abdominal: Reports: abdominal pain Genitourinary: Reports: no symptoms Neurologic/Psychiatric: Reports: no symptoms Endocrine: Reports: no symptoms Hematologic/Lymphatic: Reports: anemia Allergies: Coded Allergies: CODEINE (Verified Allergy, Unknown, 06/17/18) All Systems: reviewed and negative except above Subjective still abd pain. no fevers or chills. no sob. mild nausea. no vomiting. lipase nml. refused therapy today Objective Last 24 Hour Vital Signs Date Time Temp Pulse Resp B/P (MAP) Pulse Ox O2 Delivery O2 Flow Rate FiO2 12/19/19 09:48 78 12/19/19 09:48 78 131/79 12/19/19 09:00 Nasal Cannula 2.0 12/19/19 09:00 131/79 12/19/19 08:00 98.2 78 17 131/79 (96) 100 12/19/19 08:00 2.0 12/19/19 08:00 76 12/19/19 04:00 97.9 83 17 127/83 (98) 96 12/19/19 04:00 2.0 12/19/19 04:00 76 12/19/19 00:00 97.1 74 18 117/74 (88) 97 12/19/19 00:00 81 12/18/19 21:00 Nasal Cannula 2.0 12/18/19 20:00 2.0 12/18/19 20:00 81 12/18/19 20:00 97.4 81 19 123/85 (98) 98 12/18/19 16:00 97.7 80 19 114/74 (87) 97 12/18/19 16:00 74 12/18/19 16:00 2.0 Intake and Output 12/18/19 12/19/19 19:00 07:00 Intake Total 240 ml 360 ml Balance 240 ml 360 ml Intake Oral 240 ml 360 ml # Voids 1 Laboratory Tests 12/19/19 06:44: Sodium Level 142, Potassium Level 4.0, Chloride Level 101, Carbon Dioxide Level 32, Anion Gap 9, Blood Urea Nitrogen 21H, Creatinine 0.9, Estimat Glomerular Filtration Rate > 60, Glucose Level 125H, Calcium Level 9.7, Total Bilirubin 2.8H, Direct Bilirubin 0.8H, Aspartate Amino Transf (AST/SGOT) 19, Alanine Aminotransferase (ALT/SGPT) 16, Alkaline Phosphatase 88, Total Protein 8.5H, Albumin 3.0L, Globulin 5.5, Albumin/Globulin Ratio 0.5L, Lipase 111 Height (Feet): 5 Height (Inches): 4.00 Weight (Pounds): 113 Objective General Appearance: WD/WN, alert Neck: supple Cardiovascular: normal rate, regularly irregular Respiratory/Chest: chest wall non-tender, lungs clear, normal breath sounds, no respiratory distress Abdomen: normal bowel sounds, non tender, soft, no organomegaly, no mass Edema: mild edema 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
[2019-12-19 16:00] VITALS: BP 103/65
--- NOTE | 2019-12-19 16:22 | NUR ---
NURSE NOTES: Patient off oxygen for one hour, ambulate to bathroom, O2 sat checked 92%.
--- NOTE | 2019-12-19 17:31 | NUR ---
NURSE NOTES: Patient refused to medication including Lasix. Educated for risk and disadvantages of not taking med.
--- NOTE | 2019-12-19 19:25 | NUR ---
NURSE NOTES: Received pt and report from JAN Mar. Observed pt resting in bed with both eyes open. Pt is A/Ox4. environmental monitoring technician is in placed; pt is A. Fib (HR 76). IV site intact, asymptomatic, and patent. Bed is in the lowest position and locked. Call light and bedside table is within reach. No signs/symptoms of acute distress note at this time. Will continue plan of care.
--- NOTE | 2019-12-19 19:34 | NUR ---
HAND-OFF: Report given to JAN Anderson. Endorsed plan of care.
[2019-12-19 20:00] VITALS: BP 123/64
[2019-12-20] VITALS: BP 144/84
[2019-12-20 04:00] VITALS: BP 116/69
--- NOTE | 2019-12-20 04:15 | Progress Note ---
DATE: 12/19/2019 CARDIOLOGY PROGRESS NOTE SUBJECTIVE: Urine culture has 50,000 to 60,000 colonies. She continues to have some congestion and sputum production. No shortness of breath. OBJECTIVE: VITAL SIGNS: Blood pressure 129/68, heart rate 86, and respiratory rate 18. LUNGS: Good breath sounds. No wheezes or rales. Positive nasal discharge. CARDIAC: Regular rhythm and rate. Normal S1 and S2. ABDOMEN: Soft. EXTREMITIES: No edema. LABORATORY DATA: Reviewed. Sodium is 142, potassium 4, bicarb 32, BUN 21, and creatinine 0.9. Albumin 3. IMPRESSION: 1. Upper respiratory infection. 2. Acute on chronic systolic congestive heart failure. 3. Cardiac defibrillator. 4. Paroxysmal atrial fibrillation. 5. History of sustained ventricular arrhythmias. 6. Mild protein-calorie malnutrition. 7. Type 2 diabetes mellitus. PLAN: 1. Respiratory hygiene. 2. Check sputum cultures. 3. Bronchodilators as needed. 4. Transition from IV to oral diuretic therapy. 5. The patient and son counseled on titration of furosemide at home based on clinical parameters including weight and severity of lower extremity edema. Miguel Mason M.D. DR: NANDINI JOB#: [id number] CC:
[2019-12-20] MEDS: NovoLOG Insulin Flexpen SUBQ SCH ×2 (06:00→12:28)
--- NOTE | 2019-12-20 07:30 | NUR ---
HAND-OFF: Report given to JAN Antonio. Plan of care endorsed.
--- NOTE | 2019-12-20 07:59 | NUR ---
NURSE NOTES: Received patient from Moris Anderson. Patient is awake and alert. resting comfortably in bed. NO complain of pain or discomfort at this time. Fall precautions in place. Call hathaway within patients reach. Patient encouraged to use call hathaway. Will follow.
[2019-12-20 08:00] VITALS: BP 138/65
[2019-12-20] MEDS: Carvedilol 6.25mg Tab ORAL SCH (09:19)
[2019-12-20] MEDS: Furosemide 40mg tab ORAL SCH (09:19)
[2019-12-20] MEDS: Digoxin 0.125mg tab ORAL SCH (09:19)
[2019-12-20] MEDS: Docusate 100mg cap ORAL SCH (09:19)
[2019-12-20] MEDS: Spironolactone 25mg tab ORAL SCH (09:19)
[2019-12-20] MEDS: Losartan 50mg tab ORAL SCH (09:19)
[2019-12-20] MEDS: Cortisporin OTIC Susp 10ml BOTH EARS SCH ×2 (09:20→12:27)
--- NOTE | 2019-12-20 09:24 | NUR ---
DISCHARGE PLANNING DISCHARGE PLAN DISCUSSED WITH DR CHAN YESTERDAY DOCUMENT MANAGEMENT TECHNICIAN CALLED AND SPOKE WITH SON, HE WILL BE AVAILABLE TODAY BETWEEN 4:00-4:30 TO [employer] HIS MOTHER AWAIT OFFICIAL DISCHARGE ORDER
[2019-12-20 11:43] VITALS: BP 107/66
[2019-12-20] MEDS ORDERED: COLACE100 MG ORAL (11:53)
[2019-12-20] MEDS ORDERED: FUROSEMIDE40 MG ORAL (11:55)
[2019-12-20] MEDS ORDERED: SPIRONOLACTONE25 MG ORAL (11:55)
[2019-12-20] MEDS ORDERED: POTASSIUM CHLO20 ME3 PO (11:58)
[2019-12-20] MEDS ORDERED: CORTISPORIN EAR10 ML BOTH EARS (12:02)
[2019-12-20] MEDS ORDERED: GUAIFENESIN DM118 M1 ORAL (12:03)
--- NOTE | 2019-12-20 14:50 | NUR ---
P.T Note: late entry 0945 P.T evaluation completed and tx initiated. Please refer to P.T evaluation for current functional status. Pt is alert, O x 4 , pleasant and cooperative. Pt reported generalized weakness , dizziness and abdominal discomfort however agreeable to participate in P.T. Pt currently requires MIN A x 1 for Bed mobility , CGA X 1 for transfers and gait/ambulation activities using the FWW. Skilled P.T service is warranted to improve strength and activity tolerance to increase mobility independence and safety and return to [facility]. Recommend home P.T at [place].
[2019-12-20 15:30] VITALS: BP 161/73
--- NOTE | 2019-12-20 16:00 | NUR ---
NURSE NOTES: Patient is being discharged from medical care as per Dr. Mason's order. Awake, alert and oriented x3. After care instructions and discussion of discharge medications. Patient and son verbalized understanding of After care instructions; at this time patient does not request medications, equipment as per Dr. Mason patient already have meds at home and will be ordered and Sent to patients home. Son signed patient consent in the medical record for patient destination upon discharge. All medical devices such as IV and ID band were removed. Patient left the floor on the wheelchair, stable accompanied by staff and son. Son and patient aware she has appointment with Dr. Mason on 01/02 at 3:30 pm. will follow
--- NOTE | 2019-12-21 02:30 | Progress Note ---
DATE: 12/20/2019 SUBJECTIVE: The patient has less shortness of breath. Urine culture reveals E. coli. OBJECTIVE: VITAL SIGNS: Blood pressure 138/65, pulse 83, respirations 18. LUNGS: Clear CARDIAC: Regular. Normal S1, paradoxically split S2. A 1/6 systolic apical murmur. ABDOMEN: Soft. EXTREMITIES: Trace edema. IMPRESSION: 1. Acute on chronic systolic congestive heart failure, now clinically compensated. 2. Paroxysmal atrial fibrillation. 3. Paroxysmal ventricular tachycardia with history of sudden cardiac . 4. Cardiac defibrillator. 5. Upper respiratory infection. 6. Urinary tract infection with E. coli. PLAN: 1. Stable on oral diuretic and maintenance anti-failure regimen. 2. Outpatient followup plan. 3. To complete oral antimicrobials as well. 4. Counseled extensively regarding compliance. Miguel Mason M.D. DR: YOLETTE JOB#: [id number] CC:
--- NOTE | 2019-12-21 04:15 | Discharge Summary ---
DATE OF ADMISSION: 12/14/2019 DATE OF DISCHARGE: 12/20/2019 ADMISSION DIAGNOSES: 1. Acute on chronic systolic heart failure exacerbation. 2. History of gastric carcinoma. 3. Abdominal pain. 4. History of diabetes. 5. Paroxysmal atrial fibrillation. 6. History of cardiac defibrillator. 7. Osteoarthritis. 8. Chronic abdominal pain. DISCHARGE DIAGNOSES: 1. Acute on chronic systolic heart failure exacerbation. 2. History of gastric carcinoma. 3. Abdominal pain. 4. History of diabetes. 5. Paroxysmal atrial fibrillation. 6. History of cardiac defibrillator. 7. Osteoarthritis. 8. Chronic abdominal pain. HOSPITAL COURSE: This is a pleasant female admitted with complaints of worsening shortness of breath and lower extremity edema. She was diagnosed with congestive heart failure exacerbation likely secondary to medication and dietary compliance. She is aggressively diuresed with intravenous Lasix. She had gradual improvement in her congestive heart failure. Left foot is monitored closely. On discharge, she was stable. She was offered a assisted facility, but declined. She will be home with family members. Compliance has been stressed with respect to medications and diet. DISCHARGE MEDICATIONS: Please see discharge medication list for discharge medications. DIET: Cardiac diabetic diet. ACTIVITIES: Ad-berto. FOLLOWUP: The patient will follow up in one to two weeks in the office. Palomo Frankel M.D. DR: BETTY JOB#: [id number] CC:
== END 2019-12-20 15:55 | disposition home or self-care (01) | DRG 292 ==
LOC: 2E 19:01
DX: I11.0 Hypertensive heart disease with heart failure (principal); E44.1 Mild protein-calorie malnutrition; Z68.1 Body mass index [BMI] 19.9 or less, adult; I50.23 Acute on chronic systolic (congestive) heart failure; I48.0 Paroxysmal atrial fibrillation; Z91.14 Patient's other noncompliance with medication regimen; Z95.810 Presence of automatic (implantable) cardiac defibrillator; Z85.028 Personal history of other malignant neoplasm of stomach; G89.29 Other chronic pain; R10.9 Unspecified abdominal pain; M19.90 Unspecified osteoarthritis, unspecified site; E11.43 Type 2 diabetes mellitus with diabetic autonomic (poly)neuropathy; K31.84 Gastroparesis; Z88.6 Allergy status to analgesic agent; Z86.74 Personal history of sudden cardiac arrest; D50.9 Iron deficiency anemia, unspecified; I42.8 Other cardiomyopathies; J06.9 Acute upper respiratory infection, unspecified
CPT/HCPCS: 36415; 71045; 80048; 80053; 80162; 81003; 82248; 82962; 83690; 83735; 83880; 84484; 85007; 85025; 87086; 87181; 93005; J1815; J8499